=== PATIENT | female | born 1970 | race Caucasian/White ===

== ENCOUNTER 2022-05-24 10:14 | Outpatient (CLI) | payer MEDICARE, MEDICAID, SELFPAY | END 2022-05-24 10:15 | disposition home or self-care (01) | PROVIDERS: PCP Surgery; Visit Provider Family Medicine | DX: M54.16 Radiculopathy, lumbar region (principal) | CPT/HCPCS: 64483; J1100; Q9966 ==

== ENCOUNTER 2022-06-21 12:30 | Outpatient (CLI) | payer MEDICARE, MEDICAID, SELFPAY | END 2022-06-21 12:31 | disposition home or self-care (01) | LOC: INJ CL 12:30 | PROVIDERS: PCP Surgery; Visit Provider Family Medicine | DX: M54.16 Radiculopathy, lumbar region (principal) | CPT/HCPCS: 64483; J1100; Q9966 ==

== ENCOUNTER 2022-07-03 12:32 | Outpatient (CLI) | payer MEDICARE, MEDICAID, SELFPAY | END 2022-07-03 12:33 | disposition home or self-care (01) | LOC: LKVREF 07-04 15:03 | PROVIDERS: PCP Surgery; Visit Provider Family Medicine | DX: R30.0 Dysuria (principal) | CPT/HCPCS: 87086 ==

== ENCOUNTER 2022-07-12 08:15 | Outpatient (CLI) | payer MEDICARE, MEDICAID, SELFPAY | END 2022-07-12 08:16 | disposition home or self-care (01) | LOC: INJ CL 08:15 | PROVIDERS: PCP Surgery; Visit Provider Family Medicine | DX: M54.16 Radiculopathy, lumbar region (principal) | CPT/HCPCS: 64483; J0702; Q9966 ==

== ENCOUNTER 2022-10-19 12:32 | Outpatient (CLI) | payer MEDICARE, MEDICAID, SELFPAY ==
--- NOTE | 2022-10-19 13:00 | CRLHL7_ITS ---
For Patients: As a result of the Century Cures Act, medical imaging exams and procedure reports are released immediately into your electronic medical record. You may view this report before your referring provider. If you have questions, please contact your health care provider. INDICATION: Low back pain. COMPARISON: 03/04/2022. TECHNIQUE: Noncontrast CT lumbar spine. FINDINGS: Stable grade 1 anterolisthesis of L4 on L5 measures approximate 5 mm. Otherwise, normal alignment. No fractures. No vertebral body loss of height. Stable postop changes of diskectomy interbody fusion L2-3, L3-4 and L4-5. Posterior cristian transpedicular screw fixation L2-L5. Subtle lucency about the tip of the right L5 transpedicular screw may indicate hardware loosening. Remaining hardware appears well seated. T11-12 T12-L1: No spinal canal or neural foraminal narrowing. L1-2: No narrowing of the spinal canal. No neural foraminal narrowing. L2-3: Postoperative changes. No narrowing of spinal canal. No neural foraminal narrowing. L3-4: Postop changes. No narrowing of spinal canal. No neural foraminal narrowing. L4-5: Grade 1 anterolisthesis. Unroofed posterior disc bulge. Mild narrowing of spinal canal. Residual endplate osteophytic ridging or cement/bone matrix protein extends into the right neural foramen resulting in moderate narrowing. Mild narrowing of the left neural foramen. L5-S1: No narrowing of spinal canal. No impingement of the traversing S1 nerve roots. Moderate right and mild left neural foraminal narrowing. Degenerative changes of the SI joints. IMPRESSION: 1. Stable grade 1 anterolisthesis of L4 on L5. Otherwise normal alignment. No fractures 2. Stable postop changes L2-3, L3-4 and L4-5. Posterior fusion hardware L2-L5. Subtle lucency about the tip of the right L5 transpedicular screw may indicate hardware loosening. 3. At L4-5, grade 1 anterolisthesis. Mild narrowing of the spinal canal. There is residual endplate osteophytic ridging or cement/bone matrix protein within the right neural foramina resulting in moderate narrowing. Mild narrowing of the left neural foramina. 4. At L5-S1, moderate right and mild left neural foraminal narrowing. Please note that all CT scans at this facility use dose modulation, iterative reconstruction, and/or weight-based dosing when appropriate to reduce radiation dose to as low as reasonably achievable. Dictated by Nicolas Retana MD @ 10/20/2022 9:05:49 AM (Electronically Signed)
== END 2022-10-19 12:33 | disposition home or self-care (01) ==
LOC: CT 12:34
PROVIDERS: PCP Surgery; Visit Provider Physical Medicine & Rehabilitation
DX: M54.50 Low back pain, unspecified (principal); M51.26 Other intervertebral disc displacement, lumbar region
CPT/HCPCS: 72131

== ENCOUNTER 2024-01-24 09:42 | Emergency (ER) | payer MEDICARE, MEDICAID, SELFPAY ==
[2024-01-24 09:44] VITALS: BP 116/55; PULSE 100; RESP 20; TEMP 36.6; O2SAT 97; BMI 38.3
--- NOTE | 2024-01-24 11:30 | ED_ITS ---
HPI - Back Pain/Injury General Chief Complaint: Back Injury/Pain Stated Complaint: lower back pain Time Seen by Provider: 01/24/24 10:14 History of Present Illness HPI Narrative: This 53-year-old female comes in reporting low back pain that began yesterday. She has a history of several surgeries to her back and now has fusion of her back from L2 down into her pelvis. She does not report any recent injury event or strenuous activity. She does not have any pain radiating down either leg. She does not describe any bowel or urine dysfunction and is able to ambulate normally. Related Data Home Medications Medication Instructions Recorded Confirmed ascorbic acid (vitamin C) 100 mg 100 mg PO QDAY 07/03/22 01/24/24 tablet betamethasone dipropionate 0.05 % 1 applic topical 07/03/22 07/03/22 topical cream cholecalciferol (vitamin D3) 10 10 mcg PO QDAY 07/03/22 01/24/24 mcg (400 unit) capsule duloxetine 20 mg capsule,delayed 40 mg PO DAILY 07/03/22 01/24/24 release insulin aspart U-100 100 unit/mL 0.1 unit continuous subcutaneous 07/03/22 07/03/22 subcutaneous solution (Novolog infusion U-100 Insulin aspart) lacosamide 100 mg tablet (Vimpat) 100 mg PO BID 07/03/22 01/24/24 lamotrigine 200 mg tablet,extended 200 mg PO 07/03/22 07/03/22 release 24 hr lamotrigine 250 mg tablet,extended 250 mg PO 07/03/22 07/03/22 release 24 hr lisinopril 20 mg tablet 20 mg PO 07/03/22 07/03/22 meclizine 12.5 mg tablet 12.5 mg PO 07/03/22 07/03/22 pregabalin 150 mg capsule (Lyrica) 150 mg PO BID 07/03/22 01/24/24 zolpidem 5 mg tablet 5 mg PO PRN 07/03/22 07/03/22 atorvastatin 10 mg tablet 10 mg PO DAILY 02/28/23 01/24/24 Previous Rx's Medication Instructions Recorded cyclobenzaprine 10 mg tablet 10 mg PO TID #15 tabs 01/24/24 hydrocodone 5 mg-acetaminophen 325 1 tab PO Q4-6H PRN pain #20 tabs 01/24/24 mg tablet ketorolac 10 mg tablet 10 mg PO Q8H 5 days #15 tabs 01/24/24 methylprednisolone 4 mg tablets in See Rx Instructions PO .COMPLEX 01/24/24 a dose pack (Medrol (Seth)) #21 ea Allergies Allergy/AdvReac Type Severity Reaction Status Date / Time wheat Allergy Unknown Verified 01/24/24 09:53 ibuprofen Allergy Verified 02/28/23 15:41 penicillin V Allergy Verified 02/28/23 15:41 Review of Systems Status of ROS: Reports: 10 or more systems reviewed and unremarkable except as noted in History and below Narrative: Constitutional: No fevers, no weight gain or loss. Eyes: No discharge. No vision changes. HENT: No congestion, no sore throat, no ear pain. Cardiovascular: No chest pain, no palpitations. Respiratory: No shortness of breath, no wheezes, no cough. Gastrointestinal: No abdominal pain, no vomiting, no diarrhea. Genitourinary: No dysuria, no hematuria. Musculoskeletal: Low back pain as described above. Skin: No rashes, no pruritis. Neurological: No dizziness, weakness, sensory change, speech change. Endo/Heme/Allergies: No bruising or bleeding. No polydipsia. Pysch: no suicidality, no anxiety, no insomnia. All other systems reviewed and are negative. [facility] Medical History (Updated 01/24/24 @ 11:35 by Black Farooq MD) Dysuria ?R30.0 - Dysuria (ICD-10) Social History Smoking Status: Never smoker Do you use any of these nicotine containing products: None Second hand tobacco smoke exposure: No How often do you have a drink containing alcohol: never AUDIT-C Alcohol total score: 0 Non-prescribed substance use: denies use Exam Narrative: Exam Narrative: Constitutional: Well-developed, well-nourished, no acute distress. HEENT: Normocephalic, atraumatic. Neck: Normal range of motion. Nontender. Supple. Heart: Regular. No murmurs. Normal rate. Intact distal pulses. Lungs: Clear to auscultation. No chest discomfort. No wheezes, rhonchi, or rales. Abdomen: Normal bowel sounds. Nontender. No rebound tenderness. Genitalia: Deferred. Back: No midline tenderness. Diffuse pain in the low back. No pain radiating down either leg. Extremities: Normal range of motion. No injury. Skin: Intact. No rash. Warm. No erythema or pallor. Neurologic: No altered sensation. No weakness. Alert and oriented. Psychiatric: No suicidality. No anxiety or depression. No insomnia. Nursing notes and vitals signs are reviewed. Const: Vital Signs, click to edit/add: Vital Signs - 24 hr 01/24/24 09:44 Temperature 97.9 F Pulse Rate [Pulse Oximeter] 100 Respiratory Rate 20 Blood Pressure [Le ft Upper Arm] 116/55 L Pulse Oximetry 97 Oxygen Delivery Me thod Room Air Course Vital Signs Vital signs: Initial Vital Signs Temperature 97.9 F 01/24/24 09:44 Temperature Source Temporal Artery Scan 01/24/24 09:44 Pulse Rate 100 01/24/24 09:44 Respiratory Rate 20 01/24/24 09:44 Blood Pressure 116/55 L 01/24/24 09:44 Blood Pressure Mean 75 01/24/24 09:44 Blood Pressure Position Sitting 01/24/24 09:44 Pulse Oximetry 97 01/24/24 09:44 Oxygen Delivery Method Room Air 01/24/24 09:44 Vital Signs Temperature 97.9 F 01/24/24 09:44 Pulse Rate 100 01/24/24 09:44 Respiratory Rate 20 01/24/24 09:44 Blood Pressure 116/55 L 01/24/24 09:44 Pulse Oximetry 97 01/24/24 09:44 Oxygen Delivery Method Room Air 01/24/24 09:44 Temperature 97.9 F 01/24/24 09:44 Pulse Rate 100 01/24/24 09:44 Respiratory Rate 20 01/24/24 09:44 Blood Pressure 116/55 L 01/24/24 09:44 Pulse Oximetry 97 01/24/24 09:44 Oxygen Delivery Method Room Air 01/24/24 09:44 MDM - Back Pain/Injury MDM Narrative Medical decision making narrative: This patient comes in with report of back pain and history of several surgeries. She came with expectations that she would get an MRI immediately. I stated that we typically do not do an MRI as it is not justified unless meeting certain requirements that insurance will then authorize out of the ER. I spent more than 20 minutes explaining these factors and did state that an MRI can be done today but would not likely change our treatment plan or be reimbursed by insurance. The patient is now understanding these matters and is okay with not having that study done. X-ray, CT scan, and MRI would each be limited also with artifact from all the hardware in her back. The patient did receive an intramuscular injection of morphine and I did provide prescriptions for Toradol, [place], Flexeril, and Medrol Dosepak. I advised her to follow-up with her spine clinic for ongoing management. Discharge Plan Discharge Clinical Impression: Low back pain Patient Disposition: Home w/ Parent or Adult Condition: Stable Additional Instructions: Take medication as needed and indicated. Activity as tolerated. Follow up with spine clinic or arrange appointment with our spine clinic. Call [phone] for appointment. Return if worsening. Prescriptions: New cyclobenzaprine 10 mg tablet 10 mg PO TID Qty: 15 0RF hydrocodone-acetaminophen 5-325 mg tablet 1 tab PO Q4-6H PRN (Reason: pain) Qty: 20 0RF ketorolac 10 mg tablet 10 mg PO Q8H 5 Days Qty: 15 0RF methylprednisolone [Medrol (Seth)] 4 mg tablets,dose pack See Rx Instructions .ROUTE .COMPLEX Qty: 21 0RF Rx Instructions: orally per package directions No Action lacosamide [Vimpat] 100 mg tablet 100 mg PO BID pregabalin [Lyrica] 150 mg capsule 150 mg PO BID lamotrigine 250 mg tablet extended release 24hr 250 mg PO lamotrigine 200 mg tablet extended release 24hr 200 mg PO lisinopril 20 mg tablet 20 mg PO duloxetine 20 mg capsule,delayed release(DR/EC) 40 mg PO DAILY ascorbic acid (vitamin C) 100 mg tablet 100 mg PO QDAY cholecalciferol (vitamin D3) 10 mcg (400 unit) capsule 10 mcg PO QDAY betamethasone dipropionate 0.05 % cream 1 applic topical meclizine 12.5 mg tablet 12.5 mg PO insulin aspart U-100 [Novolog U-100 Insulin aspart] 100 unit/mL solution 0.1 unit continuous subcutaneous infusion zolpidem 5 mg tablet 5 mg PO PRN atorvastatin 10 mg tablet 10 mg PO DAILY Follow Up/Referrals: David Parisi MD [Primary Care Provider] - Stand Alone Forms: [employer] Info Instructions
[2024-01-24] MEDS: MORPHINE 10 MG/ML inj IM (11:36)
== END 2024-01-24 11:42 | disposition home or self-care (01) ==
PROVIDERS: Emergency Provider Emergency Medicine Emergency Medical Services; PCP Surgery
DX: M54.50 Low back pain, unspecified (principal)
CPT/HCPCS: 96372; 99284; J2270

== ENCOUNTER 2024-03-05 13:00 | Outpatient (RCR) | payer MEDICARE, MEDICAID, SELFPAY | END 2024-07-03 23:59 | disposition home or self-care (01) | PROVIDERS: PCP Surgery; Visit Provider Family Medicine | DX: M17.12 Unilateral primary osteoarthritis, left knee (principal); R26.2 Difficulty in walking, not elsewhere classified; M25.562 Pain in left knee; Z51.89 Encounter for other specified aftercare | CPT/HCPCS: 97110; 97162; 97535 ==

== ENCOUNTER 2024-06-18 07:26 | Outpatient (CLI) | payer MEDICARE, MEDICAID, SELFPAY | END 2024-06-18 07:27 | disposition home or self-care (01) | LOC: INJ CL 07:27 | PROVIDERS: PCP Surgery; Visit Provider Family Medicine | DX: M17.12 Unilateral primary osteoarthritis, left knee (principal); M25.562 Pain in left knee | CPT/HCPCS: 64454 ==

== ENCOUNTER 2024-07-12 14:13 | Outpatient (RCR) | payer MEDICARE, MEDICAID, SELFPAY ==
--- NOTE | 2024-07-12 15:31 | PT.OPEX ---
PT [place] Outpatient Eval PT [facility] Outpatient Eval Start: 07/11/24 15:42 Freq: Status: Active Protocol: Document 07/12/24 14:35 HLA (Rec: 07/12/24 15:23 HLA [id number]) E-signed By Maliha Toro, PT, DPT Physical Therapy Outpatient Evaluation Insurance Information Insurance Name Medicaid Medical Diagnosis L TKA-hx DM, depression, HTN, epilepsy, allergies, mental health, on disability Treating Diagnosis impaired ROM, impaired strength, impaired ambulation Referring MD Renner Subjective Preferred Name Jennifer Selina Jose, pain is significant L knee, has hx 6 back surgeries. Pt is on disability , lives in her own home in [place], does not drive. Wants in home PT after hospital stay because she does not drive. States her knee has limited her walking immensely, currently 100 feet before exquisite pain. Pain Comments Pain L knee Date of Last Physician Visit 06/28/24 Date of Surgery (If applicable) 08/14/24 Current Work Status Data Management Specialist Disability Precautions Treatment Precautions/Contraindications DM, epilepsy Weight Bearing Status Full Weight Bearing Therapy Limitations/Systems Review Not Limited Objective Range of Motion ROM shldr 0-130 degrees elevation, L knee 0-110 degrees flex otherwise WNL Strength 4+/5 shldrs otherwise WNL UEs/ LEs Swelling no edema present Palpation L medial joint line tenderness Balance & Gait Gait no device, amb 100 feet then c/o pain, limited. Gt abducted, mild arm spread with gt. Owns a ww/cane, currently not using them. Balance good static, dynamic, main limitation is pain with amb Pt is currently doing step to pattern on stairs. Slow, labored. Posture rounded thoracic spine Functional Test Performed & Score LEFS 22/80 Assessment Assessment/Impression 53 year old female with hx of 6 back surgeries, DM, HTN, epilepsy, depression, mental health, disability, resides in [facility] in a 1 level home , 2 step entry. Her L knee pain has worsened and she is undergoing a L TKA with Dr. Renner on 08/14/24. Pt presents with 0-130 degrees shldr elevation, impaired shldr strength, L knee 0-100 degrees flexion otherwise WNL for strength and balance. She transfers slowly, independently and amb 100 feet level surfaces no device, limited due to L knee pain. Stairs are slow, step to pattern. LEFS score is 22/80. Pt was instructed in TKA ex program (quad sets, ham sets, ankle pumps, heel slides, SAQ, SLR, seated knee flex/ext and hamstring stretches) per protocol to be practiced pre- operatively and for improved learning post-operatively. Pt was instructed in hospital post-op progression in PT, safety, fall prevention. Pt was instructed in positioning in chair, use of ice/polar care, bed, transfer safety, gt safety with walker, stairs, and car transfers. Her goal is to return home, have in home PT services as she does not drive. Sister will stay with her short-term. VM left with [employer] with pt's dc plan. Primary Functional Limitations amb no device, does not drive. Owns ww and cane. Plan of Care [facility] Physical Therapy Goals 1. Within this session: Pt will verbalize understanding of pre-op/post-op safety, mobility and exercises with home program issued and pt returning for ongoing therapy after TKA replacement. Coordination/Communication With Referral Source Treatment Plan/Direct Interventions Gait Training,Self-Care/Home Management,Therapeutic Activities,Therapeutic Exercises Patient Will Be Discharged From Therapy Completion of LTG(s) Discharge Plan Comments dc today with pt having surgery, then home care PT. Evaluation Billing Untimed Code Treatment Minutes 14 PT Eval No Charge No Complexity Moderate Certification Information Initial Certification Date 07/12/24 Ending Certification Date 10/09/24 Provider Signature Required Yes Provider Signature Shows Agreement With POC & Medical Necessity Physician NPI Number Write NPI# Here Physician Comment/Change : Physician Signature & Date Requested Please Sign/Date Here
== END 2024-07-12 15:51 | disposition home or self-care (01) ==
PROVIDERS: PCP Surgery; Visit Provider Orthopaedic Surgery Sports Medicine
DX: M17.12 Unilateral primary osteoarthritis, left knee (principal); Z96.652 Presence of left artificial knee joint; R53.1 Weakness; R26.9 Unspecified abnormalities of gait and mobility; Z51.89 Encounter for other specified aftercare
CPT/HCPCS: 97110; 97162

== ENCOUNTER 2024-08-15 14:41 | Inpatient (IN) | payer MEDICARE, MEDICAID, SELFPAY ==
--- NOTE | 2024-07-02 16:05 | PC.SOCIAL ---
Social work call: fabric and textile factory worker returned pt's message that was left on the social work department voicemail inquiring about options for short-term rehab after her knee surgery on August 14, 2024. fabric and textile factory worker explained the process with surgery and needing to be seen by PT/OT in the hospital after her surgery to see if she would qualify for short-term rehab. Pt understood. Pt says she does plan to spend the night in the hospital after her surgery. Pt will also look into her insurance to see what they cover. Social work to follow-up as needed.
--- NOTE | 2024-07-09 14:34 | PC.SOCIAL ---
Social work call: photographic process worker informed the pt today via phone that in order to have coverage for a short-term rehab stay with her Medicare insurance she would need to have a three night inpatient hospital stay. photographic process worker explained that when pt's have a joint replacement surgery they typically only stay in the hospital for one night unless there is a major issue. Pt then asked if she would qualify for home care. This clinical social work therapist explained that that would be up to the physician to decide if she would qualify. photographic process worker explained that if she does qualify for home care after her surgery the social work department would assist her with locating an agency and getting that set-up. Pt was thankful for the information. Social work to follow-up as needed.
[2024-08-14] VITALS (25 sets, daily range): BP systolic 132–174; BP diastolic 68–103; PULSE 78–97; RESP 14–18; TEMP 35.9–36.9; O2SAT 91–100; BMI 38.8
--- NOTE | 2024-08-14 12:31 | W.PM.H&PU ---
History & Physical Update History & Physical Update H&P Reviewed and patient assessed: No changes noted
--- NOTE | 2024-08-14 12:34 | CRLHL7_ITS ---
For Patients: As a result of the Cures Act, medical imaging exams and procedure reports are released immediately into your electronic medical record. You may view this report before your referring provider. If you have questions, please contact your health care provider. INDICATION: Post operative left knee arthroplasty TECHNIQUE: Knee radiograph 2 views left COMPARISON: None FINDINGS: Bone: No acute fractures or aggressive bone lesions are identified. Joint: The patient is status post a total knee arthroplasty with patellar resurfacing. No significant knee effusion is seen. Soft tissue: Anterior subcutaneous gas and joint gas are present from recent surgery. No radiopaque foreign bodies are seen. IMPRESSION: 1. There is an unremarkable postoperative appearance of the knee arthroplasty. Dictated by: Oren Mann MD @ 08/15/2024 14:08:15 (Electronically Signed)
[2024-08-14] MEDS: OXYCODONE (CR) 10 MG TAB.ER.12H PO (12:51)
[2024-08-14] MEDS: ACETAMINOPHEN 500 MG TABLET 1000 MG PO ×2 (12:51→19:48)
[2024-08-14] MEDS: MIDAZOLAM HCL 1 MG/ML inj IVP (13:20)
[2024-08-14] MEDS: 0.9 % SODIUM CHLORIDE 500 ML 500 ML 100 ML IV (13:20)
[2024-08-14] MEDS: fentaNYL 100 MCG/2 ML inj IVP (13:20)
[2024-08-14] MEDS: SODIUM CHLORIDE 0.9 % (FLUSH) 10 ML SYRINGE IVF (13:20)
--- NOTE | 2024-08-14 13:25 | SUR.PREOP ---
TIME?OUT:?1325 PT/RN/MDA?VERIFICATION?OF?SURGICAL?SITE,?PROCEDURE,?AND?CONSENT OBTAINED?PRIOR?TO?INVASIVE?PROCEDURE.
--- NOTE | 2024-08-14 13:58 | P.NB_ITS ---
Nerve Block Nerve Block Time Seen by Provider: : Date Seen: 08/14/24 Type of block requested by surgeon for post-operative analgesia: geniculars Side: left Time out performed: Yes Verification of patient name: Yes Verification of date of : Yes Site marking: site marked Name of person performing procedure: Guillermo Continuous monitoring Was continuous monitoring of O2 sat, B/P, desk monitor, recorded every 15 minutes?: Yes Procedure Checklist: sterile prep, needles and gloves Ultrasound guided. Images saved: Yes Medications given in 5ml increments after negative aspiration: Marcaine %: 0.25 mL: 9 Needle gauge: 25 Patient tolerated procedure well: Yes Block Charges Block Charge (with Pro Fee): Genicular Nerve Block
--- NOTE | 2024-08-14 13:58 | P.NB_ITS ---
Nerve Block Nerve Block Time Seen by Provider: : Date Seen: 08/14/24 Type of block requested by surgeon for post-operative analgesia: adductor canal Side: left Time out performed: Yes Verification of patient name: Yes Verification of date of : Yes Site marking: site marked Name of person performing procedure: Guillermo Continuous monitoring Was continuous monitoring of O2 sat, B/P, casting molder, recorded every 15 minutes?: Yes Procedure Checklist: sterile prep, needles and gloves Ultrasound guided. Images saved: Yes Medications given in 5ml increments after negative aspiration: Marcaine %: 0.25 mL: 15 Needle gauge: 20 Precedex (mcg): 25 Patient tolerated procedure well: Yes Block Charges Block Charge (with Pro Fee): Femoral Nerve Use of Ultrasound Machine for Block: Yes- US Guidance/pain block
--- NOTE | 2024-08-14 13:59 | W.ANESCHARGE ---
Anesthesia Charges Start Date/Time Anesthesia Start Date: 08/14/24 Anesthesia Start Time: 13:35 Stop Date/Time Anesthesia Stop Date: 08/14/24 Anesthesia Stop Time: 16:15
--- NOTE | 2024-08-14 14:41 | PC.SOCIAL ---
Addendum entered and electronically signed by BRIE Benavidez 08/14/24 16:15: Discharge planning: Pt was not back from surgery before this worker left for the day, so this worker will discuss with the pt in the morning. Social work to follow-up as needed. Addendum entered and electronically signed by BRIE Benavidez 08/14/24 15:48: Discharge planning: When this outreach and education social worker was talking to [facility]. they had checked pt's Medicare insurance for coverage of home health services and saw no issues with coverage. Social work to follow-up as needed. Original Note: Discharge planning: Pt is having knee replacement surgery today at 1:15pm. collar worker talked to the pt last month about recovery planning after her knee surgery. Pt is reporting that she would like home care if she qualifies. collar worker contacted [facility]. and they shared that they would have availability to accept the pt for physical therapy and to fax the orders, face sheet and history and physical when available. collar worker will discuss this with the pt when she comes to the med/surg floor for recovery before sending the required documentation to [facility]. [facility]s phone number is #[phone] and their fax number is #[phone]. Social work to follow-up as needed.
--- NOTE | 2024-08-14 15:27 | P.ORPRC_ITS ---
Procedure Note Date of procedure: 08/14/24 Procedure: PREOPERATIVE DIAGNOSIS: 1. Left knee osteoarthritis, primary, severe POSTOPERATIVE DIAGNOSIS: 1. Left knee osteoarthritis, primary, severe PROCEDURE: 1. Left total knee arthroplasty - subvastus; modifier 22 with 25% added time and difficulty for this case due to the patient's short stature and increased body mass index (BMI 38.8) which increased the need for more retractors, more assistants, and a stemmed tibial component which required increased preparation time. SURGEON: Skyler Renner MD. STAFF REGISTERED NURSE: David Ross PA-C - Of note, a skilled assistant associate professor was critical for this case to aid in patient positioning, tissue retraction, limb manipulation/positioning, and closure. ANESTHESIA: Spinal anesthetic EBL: 50ml IMPLANTS: DePuy J&J all cemented TKA - Attune PS femur size 4 narrow, size 3 stemmed tibia, 5 mm poly spacer, 35 mm patella TOURNIQUET: 105 minutes at 300 torr COMPLICATIONS: None evident INDICATIONS: The patient is a pleasant 53-year-old female who has experienced severe left knee pain and difficulty bearing weight. Workup included x-rays which revealed severe osteoarthrosis in the knee. Given the deformity, the dysfunction, and the pain, as well as the failure of nonoperative management, recommendation was made for surgery. FINDINGS: Full-thickness chondral loss diffusely throughout the medial and to a lesser degree patellofemoral and lateral compartments. Degenerative meniscus pathology in the medial compartment. Large effusion upon entering the joint. Tricompartmental osteophytosis noted. DESCRIPTION OF PROCEDURE: Following a thorough discussion of risks, benefits, and alternatives consent was obtained and the left knee was marked. The patient was brought to the operating room and placed supine on the operating table. Induction of anesthesia was undertaken. 2 g IV Ancef and 1 g tranexamic acid was administered within 1 hr of incision preoperatively. Proper time-out was performed identifying proper patient, site, procedure. The operative extremity was prepped and draped in the appropriate sterile fashion using ChloraPrep after the patient was positioned supine with all bony prominences well padded. A longitudinal, anterior, midline skin incision was made starting approximately 3cm proximal to the superior pole of the patella and advanced distal to the tibial tubercle. A subvastus approach was utilized. A medial subperiosteal sleeve was created with knife, alvarenga elevator and curved osteotome. The retropatellar fatpad was resected and the synovium in the suprapatellar pouch excised to visualize the anterior femoral cortex. Femoral preparation was performed via an intramedullary guide. Step drill allowed access into the femoral canal. The distal cutting guide was placed with 5? of valgus and 10 mm cut on the distal femur. Femur was sized using a posterior referencing guide in 3? of external rotation. This found have a best fit with the sizing noted above. The 4 in 1 cutting block was then placed, and the distal femur shaped accordingly. The box cut was then created and the trial implant inserted to confirm appropriate fit. We turned our attention to the proximal tibia. Extramedullary guide was utilized for cutting with the goal of being 90 degree cut from the mechanical axis of the tibia in the varus/valgus plane utilizing tibial crest as the primary alignment. Initially a 3 mm resection was performed from the medial tibial plateau. Ultimately, balancing was achieved in both flexion and extension in both varus and valgus. The knee was able to achieve full extension as well comfortably. The patella was initially measured and found have a thickness of 24 mm. It was resected back to approximately 14 mm. It was sized to be a best fit with as noted above. This was drilled, trial placed. All trials were placed and found to have an excellent stability and balance. At this stage, trial implants were removed, the knee was thoroughly irrigated with normal saline, and the cement was mixed. After irrigation, the knee was thoroughly dried, and cement placed, with the real tibial and femoral implants placed along with the patella. Trial poly spacer was placed and confirmed to have excellent range of motion and full extension, and the real poly spacer opened and inserted. All extra cement was removed, and a 3 min Betadine soak performed. Finally, a final irrigation round with normal saline was performed. Closure performed with 0 PDS and #0 Stratafix for the quad tendon/retinaculum. 2-0 Vicryl/Stratafix for the subcutaneous and 4-0 Monocryl for subcuticular closure. Dressings were applied and the patient was awoken from anesthesia after the tourniquet deflated and transferred the PACU in stable condition. A skilled assistant associate professor was critical for this case to aid in patient positioning, tissue retraction, bone exposure, limb manipulation/positioning, patient safety, and closure. PLAN: 1. Weight bear as tolerated operative extremity. 2. 23 hr perioperative antibiotics. 3. Ice. 4. PT/OT consults for ambulation assistance/mobility education. 5. Social work consult for discharge planning. 6. DVT prophylaxis with at SCDs and aspirin twice daily.
--- NOTE | 2024-08-14 16:23 | W.ANESCHARGE ---
Anesthesia Charges Start Date/Time Anesthesia Start Date: 08/14/24 Anesthesia Start Time: 13:35 Stop Date/Time Anesthesia Stop Date: 08/14/24 Anesthesia Stop Time: 16:15
[2024-08-14] MEDS: HYDROmorphone 0.5 mg/0.5 ml inj IVP ×3 (16:36→19:49)
[2024-08-14] MEDS: LACTATED RINGERS 1000 ML 1,000 ML 100 ML IV (17:01)
--- NOTE | 2024-08-14 17:17 | SUR.PHASEI ---
Patient arrived with pain of 9, TRACK PRODUCTION ENGINEER gave 1 of fentanyl. Patient's oxygen saturation dropped. O2 mask applied at 10 l/min. Patient breathing better in a few minutes with jaw lift. Oxygenation came up to 100 %.
--- NOTE | 2024-08-14 17:21 | SUR.PHASEI ---
1700 Patient received 2 doses of dilaudi. Pain better, but states it is still a level 8. See FLACC score. Patient meets anesthesia discharge criteria from PACU
[2024-08-14] MEDS: OXYCODONE 5 MG TABLET PO ×2 (19:07→23:39)
--- NOTE | 2024-08-14 19:12 | PM.IMCN1 ---
Date of Consult Patient: [facility] Patient Consult date: 08/14/24 Requesting Physician: Orthopedics Primary Care Provider: David Parisi MD Consult Narrative Reason for consult: Medical management Narrative: Jennifer May is a 53 year old female past medical history significant for hypertension, dyslipidemia, seizure disorder, type 1 diabetes mellitus, osteoarthritis of left knee is POD#0 s/p left total knee arthroplasty, Dr. Su. There have been no perioperative complications or nursing concerns reported. Estimated total blood loss documented as 50 ml. Updated and reviewed the active medical problems, past medical history, past surgical history, social history, allergies and medications in our electronic EMR. Postoperatively, patient reports left knee pain increasing having just received pain medication. Denies headache or dizziness. Denies chest pain or shortness of breath. Denies nausea, tolerating orals without vomiting. Review of Systems Narrative: REVIEW OF SYSTEMS: Complete review of systems performed and negative unless otherwise stated in HPI or below. PFSH [facility] Medical History Dyslipidemia ?E78.5 - Hyperlipidemia, unspecified (ICD-10) Hypothyroidism ?E03.9 - Hypothyroidism, unspecified (ICD-10) Insulin pump in place ?Z96.41 - Presence of insulin pump (external) (internal) (ICD-10) Depression ?F32.A - Depression, unspecified (ICD-10) Hypertension ?I10 - Essential (primary) hypertension (ICD-10) Seizure disorder ?G40.909 - Epilepsy, unspecified, not intractable, without status epilepticus (ICD-10) Right-sided low back pain with right-sided sciatica ?M54.41 - Lumbago with sciatica, right side (ICD-10) Spinal stenosis of lumbar region without neurogenic claudication ?M48.061 - Spinal stenosis, lumbar region without neurogenic claudication (ICD-10) Lumbar disc herniation ?M51.26 - Other intervertebral disc displacement, lumbar region (ICD-10) Celiac disease ?K90.0 - Celiac disease (ICD-10) Dysuria ?R30.0 - Dysuria (ICD-10) Surgical History History of lumbar fusion (03/20/24) ?Z98.1 - Arthrodesis status (ICD-10) History of lumbar laminectomy for spinal cord decompression (02/22/22) ?Z98.890 - Other specified postprocedural states (ICD-10) History of laminectomy (01/14/22) ?Z98.890 - Other specified postprocedural states (ICD-10) History of endometrial ablation (2005) ?Z98.890 - Other specified postprocedural states (ICD-10) History of esophagogastroduodenoscopy (EGD) (08/2014) ?Z98.890 - Other specified postprocedural states (ICD-10) H/O bilateral cataract extraction (1987) ?Z98.41 - Cataract extraction status, right eye (ICD-10) ?Z98.42 - Cataract extraction status, left eye (ICD-10) Status post lumbar spine surgery for decompression of spinal cord (06/18/19) ?Z98.890 - Other specified postprocedural states (ICD-10) History of lumbar fusion (04/26/16) ?Z98.1 - Arthrodesis status (ICD-10) History of hysteroscopy ?Z98.890 - Other specified postprocedural states (ICD-10) History of carpal tunnel surgery of left wrist (09/28/07) ?Z98.890 - Other specified postprocedural states (ICD-10) S/P cervical spinal fusion (03/18/10) ?Z98.1 - Arthrodesis status (ICD-10) History of carpal tunnel surgery of right wrist (07/15/08) ?Z98.890 - Other specified postprocedural states (ICD-10) History of appendectomy (2001) ?Z90.49 - Acquired absence of other specified parts of digestive tract (ICD-10) Social History What is your current living situation?: I presently have a place to live Problems where you live: no known problems In the past 12 months, utilities in danger of being shut off: no In the past 12 mos, have been you worried that your food would run out before you had money to buy more?: never true In the past 12 mos, the food you bought just didn't last and you didn't have money to buy more?: never true Smoking Status: Never smoker Do you use any of these nicotine containing products: None Second hand tobacco smoke exposure: No How often do you have a drink containing alcohol: monthly or less AUDIT-C Alcohol total score: 1 Non-prescribed substance use: denies use Caffeine: Yes (coffee) How often does anyone, including family, friends and others, physically hurt you: never How often does anyone, including family, friends and others, insult or talk down to you: never How often does anyone, including family, friends and others, threaten you with harm: never How often does anyone, including family, friends and others, scream or curse at you: never Meds Home Medications and Allergies Home Medications ?Medication ?Instructions ?Recorded ?Confirmed ?Type betamethasone dipropionate 0.05 % 1 applic topical Q12H PRN 07/03/22 08/14/24 History topical cream duloxetine 20 mg capsule,delayed 40 mg PO DAILY 07/03/22 08/14/24 History release lacosamide 100 mg tablet (Vimpat) 100 mg PO BID 07/03/22 08/14/24 History lamotrigine 200 mg tablet,extended 200 mg PO HS 07/03/22 08/14/24 History release 24 hr lamotrigine 250 mg tablet,extended 250 mg PO HS 07/03/22 08/14/24 History release 24 hr meclizine 12.5 mg tablet 12.5 mg PO TID PRN 07/03/22 08/14/24 History pregabalin 150 mg capsule (Lyrica) 150 mg PO BID 07/03/22 08/14/24 History zolpidem 5 mg tablet 5 mg PO HS PRN 07/03/22 08/14/24 History atorvastatin 10 mg tablet 10 mg PO QPM 02/28/23 08/14/24 History glucagon 1 mg/0.2 mL subcutaneous 1 mg subcut DAILY PRN 06/28/24 08/14/24 History syringe (Gvoke PFS 1-Pack) ropinirole 0.5 mg tablet 1 mg PO HS 06/28/24 08/14/24 History albuterol sulfate 2.5 mg/3 mL 2.5 mg inhalation Q4H PRN 08/14/24 08/14/24 History (0.083 %) solution for nebulization amlodipine 5 mg tablet 5 mg PO DAILY 08/14/24 08/14/24 History ascorbic acid (vitamin C) 500 mg 500 mg PO DAILY 08/14/24 08/14/24 History tablet aspirin 81 mg tablet,delayed 81 mg PO DAILY 08/14/24 08/14/24 History release (Adult Low Dose Aspirin) cholecalciferol (vitamin D3) 25 50 mcg PO DAILY 08/14/24 08/14/24 History mcg (1,000 unit) tablet ferrous sulfate 325 mg (65 mg 325 mg PO DAILY 08/14/24 08/14/24 History iron) tablet (Feosol) insulin lispro 100 unit/mL 50 - 60 unit subcut DAILY 08/14/24 08/14/24 History subcutaneous solution (Admelog U-100 Insulin lispro) Allergies Allergy/AdvReac Type Severity Reaction Status Date / Time wheat Allergy Unknown Dizziness Verified 06/28/24 09:17 ibuprofen Allergy retinal Verified 06/28/24 09:17 hemorrhage penicillin V Allergy Rash Verified 06/28/24 09:17 Exam Narrative: Exam Narrative: PHYSICAL EXAM General: Pleasant, conversant, NAD HEENT: Normocephalic, atraumatic, sclera white, EOMI, oral mucosa moist Cardiovascular: RRR, S1S2. No pitting edema Pulmonary: CTA bilaterally without rhonchi, rales, expiratory wheezes. No dyspnea Abdominal: Soft, nondistended, NTTP Neurological: Alert, answering questions appropriately, cranial nerves intact, no focal findings Extremities: No gross joint deformity or swelling. Postoperative dressing in place, dry. Neurovascularly intact Skin: Warm, dry. Const: Vital Signs, click to edit/add: Vital Signs - 24 hr 08/14/24 13:15 08/14/24 13:27 08/14/24 13:30 Temperature 98.4 F Pulse Rate 80 80 79 Respiratory Rate 16 16 16 Blood Pressure 171/78 H 148/90 H 132/72 Pulse Oximetry 96 100 100 Oxygen Delivery Me thod Room Air Nasal Cannula Room Air Oxygen Flow Rate 3 08/14/24 16:14 08/14/24 16:20 08/14/24 16:25 Temperature 97.4 F L Pulse Rate 84 86 86 Respiratory Rate 18 18 18 Blood Pressure 152/75 H 166/82 H 167/83 H Pulse Oximetry 92 100 100 Oxygen Delivery Me thod Aerosol Mask Aerosol Mask Aerosol Mask Oxygen Flow Rate 10 10 10 08/14/24 16:30 08/14/24 16:35 08/14/24 16:40 Temperature Pulse Rate 82 81 85 Respiratory Rate 16 14 14 Blood Pressure 164/88 H 155/98 H 167/88 H Pulse Oximetry 100 100 100 Oxygen Delivery Me thod Aerosol Mask Aerosol Mask Aerosol Mask Oxygen Flow Rate 10 10 10 08/14/24 16:45 08/14/24 16:50 08/14/24 16:55 Temperature 97.4 F L Pulse Rate 81 84 80 Respiratory Rate 14 14 16 Blood Pressure 156/86 H 151/103 H 161/74 H Pulse Oximetry 99 96 98 Oxygen Delivery Me thod Room Air Room Air Room Air Oxygen Flow Rate 08/14/24 17:00 08/14/24 17:13 08/14/24 17:13 Temperature Pulse Rate 82 Respiratory Rate 14 16 Blood Pressure 142/78 H Pulse Oximetry 97 95 95 Oxygen Delivery Me thod Room Air Nasal Cannula Oxygen Flow Rate 2 08/14/24 17:13 08/14/24 17:30 08/14/24 17:45 Temperature 96.7 F L 97.0 F L Pulse Rate 82 88 94 Respiratory Rate 16 16 16 Blood Pressure 155/73 H 153/68 H 149/93 H Pulse Oximetry 95 98 97 Oxygen Delivery Me thod Nasal Cannula Nasal Cannula Nasal Cannula Oxygen Flow Rate 2 2 2 08/14/24 18:00 08/14/24 18:15 08/14/24 18:45 Temperature 97.2 F L Pulse Rate 91 92 97 Respiratory Rate 16 16 16 Blood Pressure 163/78 H 150/89 H 140/81 H Pulse Oximetry 98 97 98 Oxygen Delivery Me thod Nasal Cannula Nasal Cannula Nasal Cannula Oxygen Flow Rate 2 2 2 Assessment and Plan Assessment and plan (1) Osteoarthritis of left knee: Problem comment: -POD#0 s/p L TKA, Dr. Su -perioperative management including pain management and anticoagulation per Orthopedic surgery -encourage postoperative pulmonary hygiene -PT OT consults -plan to discharge home with sister tomorrow Status: Acute (2) Seizure disorder: Problem comment: -stable, continue lamotrigine, seizure precautions Status: Acute (3) Type I diabetes mellitus: Problem comment: -postop glucose 115 -continue home insulin pump, monitoring ACHS as long as accurate with Accu-Chek Status: Acute (4) Hypertension: Problem comment: -hypertensive postoperatively, continue home medications Status: Acute Total Time Spent Total Time Spent: Total time spent caring for the patient today was 45 minutes. This includes time spent for the visit reviewing the chart, time spent during the visit, time spent after the visit and documentation and planning in coordination of care.
[2024-08-14] MEDS: CEFAZOLIN 2 GM in 0.9 % SODIUM CHLORIDE Mini-bag 100 ML IVPB (19:48)
[2024-08-14] MEDS: PREGABALIN 75 MG CAPSULE 150 MG PO (21:39)
[2024-08-14] MEDS: ROPINIROLE HCL 1 MG TABLET PO (21:40)
[2024-08-14] MEDS: ATORVASTATIN 10 MG TABLET PO (21:41)
[2024-08-14] MEDS: LACOSAMIDE 50 MG TABLET 100 MG PO (21:41)
[2024-08-14] MEDS: SENNOSIDES 1 TAB TABLET 2 TAB PO (21:42)
[2024-08-14] MEDS: ASPIRIN 81 MG TABLET EC PO (21:42)
[2024-08-14] MEDS: AMLODIPINE 5 MG TABLET PO (21:43)
[2024-08-14] MEDS: NON-FORMULARY MEDICATION (Lamotrigine 250 mg tablet extended release 24hr) 250 EACH PO (22:19)
[2024-08-14] MEDS: NON-FORMULARY MEDICATION (Lamotrigine 200 mg tablet extended release 24hr) 200 EACH PO (22:19)
[2024-08-14] MEDS: ONDANSETRON 2 MG/ML inj 4 MG IVP (22:31)
[2024-08-15] VITALS (10 sets, daily range): BP systolic 143–173; BP diastolic 60–88; PULSE 88–102; RESP 16–18; TEMP 36.5–37.1; O2SAT 9–97
[2024-08-15] MEDS: ACETAMINOPHEN 500 MG TABLET 1000 MG PO ×4 (02:11→20:24)
[2024-08-15] MEDS: HYDROmorphone 0.5 mg/0.5 ml inj IVP ×3 (02:12→07:59)
[2024-08-15] MEDS: CEFAZOLIN 2 GM in 0.9 % SODIUM CHLORIDE Mini-bag 100 ML IVPB (03:42)
--- NOTE | 2024-08-15 04:51 | PC.NURSE ---
Shift note: Pt is doing well ambulating with A1, walker and GB. Tolerated regular diet well. At 0300, pt complained of feeling nauseated. Zofran given. Pain level ranged between 4 and 10. Pain given as ordered. Pt walked in hallway. Urine out has been good. Saline lock. Dressing intact, clean and dry. Ice pack applied. Pt has not pass gas yet, no BM.
[2024-08-15] MEDS: ONDANSETRON 2 MG/ML inj 4 MG IVP (05:20)
[2024-08-15] MEDS: OXYCODONE 5 MG TABLET PO ×3 (05:21→10:31)
[2024-08-15 07:43] LABS: Basophils Absolute Auto 0.03 K/uL (0.00-0.30); Basophils Percent Auto 0.3 % (0.0-3.0); Eosinophils Absolute Auto 0.06 K/uL (0.00-0.50); Eosinophils Percent Auto 0.6 % (0.0-7.0); Hematocrit 39.2 % (33.0-51.0); Hemoglobin* 12.5 gm/dL (12.0-16.0); Immature Granulocytes Abs Auto 0.04 K/uL (0.00-0.30); Immature Granulocytes Pct Auto 0.4 %; Lymphocytes Percent Auto 9.7 % (20-44); Mean Corpuscular HGB Conc 32 gm/dL (32-36); Mean Corpuscular Hemoglobin 29 pg (26-34); Mean Corpuscular Volume 90 fL (80-100); Platelet Count* 264 K/uL (140-440); RDW Coefficient of Variation % 13.9 % (11.5-15.5); Red Blood Count 4.35 m/uL (4.00-5.20); White Blood Count* 10.09 K/uL (4.50-11.00)
[2024-08-15 07:45] LABS: Slide Review Reflex No
[2024-08-15 07:58] LABS: Sodium* 135 mmol/L (135-149)
[2024-08-15 07:59] LABS: Potassium* 4.2 mmol/L (3.6-5.1)
[2024-08-15] MEDS: DULOXETINE HCL 20 MG CAPSULE DR 40 MG PO (08:00)
[2024-08-15 08:01] LABS: Creatinine* 0.6 mg/dL (0.5-1.5); Est. Creatinine Clearance* 76.99; Estimated Glomerular Filt Rate 107 ml/min
[2024-08-15] MEDS: SENNOSIDES 1 TAB TABLET 2 TAB PO ×2 (08:01→20:28)
[2024-08-15] MEDS: ASPIRIN 81 MG TABLET EC PO ×2 (08:01→20:26)
[2024-08-15] MEDS: LACOSAMIDE 50 MG TABLET 100 MG PO ×2 (08:01→20:27)
[2024-08-15 08:02] LABS: Blood Urea Nitrogen* 14 mg/dL (7-30)
[2024-08-15] MEDS: PREGABALIN 75 MG CAPSULE 150 MG PO ×2 (08:02→20:27)
[2024-08-15] MEDS: AMLODIPINE 5 MG TABLET PO (08:04)
[2024-08-15] MEDS: CELECOXIB 200 MG CAPSULE PO ×2 (09:20→20:26)
[2024-08-15] MEDS: hydrOXYzine pamoate 25 MG CAPSULE 50 MG PO ×3 (09:20→20:26)
--- NOTE | 2024-08-15 10:15 | PC.SOCIAL ---
Addendum entered and electronically signed by MARC Parson Student Search Director 08/15/24 15:13: Social work web development intern faxed [id number] and H&P to [employer], fax number: [phone]. Social work to follow up as needed. Original Note: Discharge planning: Social work web development intern spoke with pt regarding home care services. She had no preference for service and asked for whichever one was available. Social work web development intern confirmed with [facility] that they could accept the pt and they said they could for both therapy and nursing services. Social work will fax orders to [employer] [facility]. and follow up.
[2024-08-15] MEDS: HYDROmorphone 2 MG TABLET PO ×2 (13:07→18:43)
--- NOTE | 2024-08-15 13:53 | PM.ORPN ---
Subjective Subjective Date Seen: 08/15/24 Principal diagnosis: Status postop day 1 left total knee arthroplasty Interval history: Reports not doing well. Very difficult pain management of this left knee. Not able to sleep. Does not believe that the IV hydromorphone or oral oxycodone or provide any relief for her. Delete DVT prophylaxis: 81 mg aspirin by mouth twice daily, SCDs, walking. Denies fevers, chills, aches, N/V, CP, SOB/FLORES. Reports some lightheadedness when up and moving. Per staff, patient appeared to be in better comfort after IV Dilaudid even though she says that the pain is not controlled. She states that she is not pleased that she was the last surgery on 08/14/2024 especially with her diabetes. She has had multiple back surgeries over the last few months. Ortho Exam Narrative Exam Narrative: -Patient appears uncomfortable, and in pain; no apparent acute distress -Alert and oriented times 3 -Operative knee moderately swollen; soft tissues supple; no ecchymosis; no erythematous streaking Warmth appropriate -Surgical dressing clean, dry, intact; no drainage -Bilateral calfs soft; no significant swelling, edema, tenderness, erythema, discoloration, warmth, or palpable cords -2+ DP/PT pulses, intact dermatomes and myotomes distally (5/5 strength) Const Vital Signs, click to edit/add: Vital Signs - 24 hr 08/14/24 16:14 08/14/24 16:20 08/14/24 16:25 Temperature 97.4 F L Pulse Rate 84 86 86 Pulse Rate [Right Pulse Oximeter] Respiratory Rate 18 18 18 Blood Pressure 152/75 H 166/82 H 167/83 H Blood Pressure [Right Arm] Pulse Oximetry 92 100 100 Oxygen Delivery Method Aerosol Mask Aerosol Mask Aerosol Mask Oxygen Flow Rate 10 10 10 08/14/24 16:30 08/14/24 16:35 08/14/24 16:40 Temperature Pulse Rate 82 81 85 Pulse Rate [Right Pulse Oximeter] Respiratory Rate 16 14 14 Blood Pressure 164/88 H 155/98 H 167/88 H Blood Pressure [Right Arm] Pulse Oximetry 100 100 100 Oxygen Delivery Method Aerosol Mask Aerosol Mask Aerosol Mask Oxygen Flow Rate 10 10 10 08/14/24 16:45 08/14/24 16:50 08/14/24 16:55 Temperature 97.4 F L Pulse Rate 81 84 80 Pulse Rate [Right Pulse Oximeter] Respiratory Rate 14 14 16 Blood Pressure 156/86 H 151/103 H 161/74 H Blood Pressure [Right Arm] Pulse Oximetry 99 96 98 Oxygen Delivery Method Room Air Room Air Room Air Oxygen Flow Rate 08/14/24 17:00 08/14/24 17:13 08/14/24 17:13 Temperature Pulse Rate 82 Pulse Rate [Right Pulse Oximeter] Respiratory Rate 14 16 Blood Pressure 142/78 H Blood Pressure [Right Arm] Pulse Oximetry 97 95 95 Oxygen Delivery Method Room Air Nasal Cannula Oxygen Flow Rate 2 08/14/24 17:13 08/14/24 17:30 08/14/24 17:45 Temperature 96.7 F L 97.0 F L Pulse Rate 82 88 94 Pulse Rate [Right Pulse Oximeter] Respiratory Rate 16 16 16 Blood Pressure 155/73 H 153/68 H 149/93 H Blood Pressure [Right Arm] Pulse Oximetry 95 98 97 Oxygen Delivery Method Nasal Cannula Nasal Cannula Nasal Cannula Oxygen Flow Rate 2 2 2 08/14/24 18:00 08/14/24 18:15 08/14/24 18:45 Temperature 97.2 F L Pulse Rate 91 92 97 Pulse Rate [Right Pulse Oximeter] Respiratory Rate 16 16 16 Blood Pressure 163/78 H 150/89 H 140/81 H Blood Pressure [Right Arm] Pulse Oximetry 98 97 98 Oxygen Delivery Method Nasal Cannula Nasal Cannula Nasal Cannula Oxygen Flow Rate 2 2 2 08/14/24 19:00 08/14/24 20:00 08/14/24 21:00 Temperature 97.2 F L 97.6 F 97.6 F Pulse Rate 94 91 90 Pulse Rate [Right Pulse Oximeter] Respiratory Rate 16 16 16 Blood Pressure 174/87 H 156/73 H 151/88 H Blood Pressure [Right Arm] Pulse Oximetry 98 99 98 Oxygen Delivery Method Nasal Cannula Nasal Cannula Nasal Cannula Oxygen Flow Rate 2 2 2 08/14/24 22:35 08/14/24 22:59 08/14/24 22:59 Temperature 97.5 F L Pulse Rate 88 Pulse Rate [Right Pulse Oximeter] Respiratory Rate 16 16 Blood Pressure 174/73 H Blood Pressure [Right Arm] Pulse Oximetry 91 91 91 Oxygen Delivery Method Room Air Nasal Cannula Oxygen Flow Rate 2 08/14/24 23:00 08/15/24 02:06 08/15/24 07:53 Temperature 97.9 F 97.9 F Pulse Rate 88 Pulse Rate [Right Pulse Oximeter] 78 Respiratory Rate 16 Blood Pressure 149/74 H Blood Pressure [Right Arm] 149/74 H Pulse Oximetry 97 97 95 Oxygen Delivery Method Nasal Cannula Nasal Cannula Oxygen Flow Rate 1 1 08/15/24 07:53 08/15/24 07:53 08/15/24 13:24 Temperature 98.8 F 98.5 F Pulse Rate Pulse Rate [Right Pulse Oximeter] 98 102 H Respiratory Rate 18 18 18 Blood Pressure Blood Pressure [Right Arm] 154/61 H 173/82 H Pulse Oximetry 95 95 92 Oxygen Delivery Method Room Air Room Air Room Air Oxygen Flow Rate Assessment and Plan Assessment and plan (1) Osteoarthritis of left knee: Problem details: -POD#1 s/p L TKA, Dr. Su -perioperative management including pain management and anticoagulation per Orthopedic surgery -encourage postoperative pulmonary hygiene -PT OT consults -plan to discharge home with sister today, 08/15/2024 Status: Acute (2) Seizure disorder: Problem details: -stable, continue lamotrigine, seizure precautions Status: Acute (3) Type I diabetes mellitus: Problem details: -postop glucose 115 -continue home insulin pump, monitoring ACHS as long as accurate with Accu-Chek Status: Acute (4) Hypertension: Problem details: -hypertensive postoperatively, continue home medications Status: Acute Plan - Complete 23 hour perioperative antibiotics. - PT/OT consult for education and assistance. - Social work consult for discharge planning - Prescribed analgesics as needed - DVT prophylaxis: 81 mg aspirin by mouth twice daily, walking, and SCDs - Anticipation is for discharge to home with family/friends today 08/15/2024 if the patient remains medically stable, pain is controlled, and they are safe with mobilization. At this point, patient's pain is not well managed. We will try different options for pain including Vistaril, Celebrex, and oral Dilaudid. Per therapy, the feel that she is doing well but has a poor pain tolerance. I believe this is also in the setting of recent back surgeries. We will see how she does this afternoon; that she may stay overnight because of poor pain management.
[2024-08-15] MEDS: ATORVASTATIN 10 MG TABLET PO (17:44)
[2024-08-15] MEDS: ROPINIROLE HCL 1 MG TABLET PO (18:43)
--- NOTE | 2024-08-15 18:56 | PC.NURSE ---
End of shift: patient alert and oriented. Tolerating a reg. diet on RA. Rates pain 8/10 PRN oral dilauded given. Patients dressing to Left knee, C/D/I. BG 134, patient independently checking Dexcom to manage blood sugars. Patient has insulin pump to manage her own insulin. Insulin tracking sheet given to patient to log her Blood sugars and any bolus needed.
[2024-08-15] MEDS: lamoTRIgine 100 MG TABLET 450 MG PO (20:29)
[2024-08-16] MEDS: HYDROmorphone 2 MG TABLET PO ×2 (00:02→08:30)
[2024-08-16] MEDS: hydrOXYzine pamoate 25 MG CAPSULE 50 MG PO ×2 (02:39→08:29)
[2024-08-16] MEDS: ACETAMINOPHEN 500 MG TABLET 1000 MG PO ×2 (02:39→08:29)
[2024-08-16 02:40] VITALS: BP 150/66; PULSE 93; RESP 18; TEMP 36.7; O2SAT 95
[2024-08-16] MEDS: polyethylene glycoL 3350 17 GM PACK PO (06:26)
[2024-08-16 07:30] VITALS: BP 135/60; PULSE 89; RESP 18; TEMP 36.3; O2SAT 96
--- NOTE | 2024-08-16 07:47 | PC.NURSE ---
End of shift note [id number]: Pt alert & oriented x 4 and able to make needs known. Incision to anterior L knee noted to be C/D/I with CMS to LLE intact. Pt transferring/ambulating with assist of 1 with FWW and gait belt. Blood glucose of 140 at HS. PRN Dilaudid and scheduled Tylenol given for pain control along with rest, repositioning and ice. Pt has been afebrile. 1 liter oxygen worn overnight due to O2 sat of 84% on RA when asleep. Pt continent of bladder and is passing flatus. PRN Miralax administered this morning due to last BM of 08/12/24 per pt report. Pt also receiving scheduled Senna. Pt continent of bladder. Call light within reach.
[2024-08-16] MEDS: LACOSAMIDE 50 MG TABLET 100 MG PO (08:29)
[2024-08-16] MEDS: SENNOSIDES 1 TAB TABLET 2 TAB PO (08:29)
[2024-08-16] MEDS: CELECOXIB 200 MG CAPSULE PO (08:29)
[2024-08-16] MEDS: ASPIRIN 81 MG TABLET EC PO (08:29)
[2024-08-16] MEDS: SODIUM CHLORIDE 0.9 % (FLUSH) 10 ML SYRINGE 5 ML IVF (08:30)
[2024-08-16] MEDS: PREGABALIN 75 MG CAPSULE 150 MG PO (08:30)
--- NOTE | 2024-08-16 10:00 | PC.SOCIAL ---
Discharge planning: Social work communications marketing intern called [facility] to confirm that the pt is discharging today. They said they will send someone out tomorrow to begin home care. Social work communications marketing intern discussed the plan with pt and she is pleased to receive home care. Social work communications marketing intern confirmed pt had the social work number for any further questions. Social work to follow up as needed.
[2024-08-16 10:25] VITALS: BP 130/52; PULSE 98; RESP 16; TEMP 36.8; O2SAT 92
--- NOTE | 2024-08-16 11:23 | PC.NURSE ---
Pt alert and oriented. Pt had complaints of pain ranging 2-5; see EMAR for intervention. Pt up with SBA with walker and gait belt. Pt's dressing is dry and intact. Pt discharged home with sister; follow up with PA next week.
--- NOTE | 2024-08-16 11:25 | PC.NURSE ---
Pt has Dexcom in place and insulin pump; that is controlled by Pt per physicians order.
--- NOTE | 2024-08-16 11:39 | PM.ORPN ---
Subjective Subjective Date Seen: 08/16/24 Principal diagnosis: Status postop day 2 left total knee arthroplasty Interval history: Patient reports doing better. Less pain today. Still a lot of pain with motion however. No acute events over night. Pain managed with scheduled and PRN medications, ice. Believes the oral Dilaudid is more helpful. DVT prophylaxis: 81 mg aspirin by mouth twice daily, SCDs, walking. Denies fevers, chills, aches, N/V, CP, SOB/FLORES, or lightheadedness. She will receive physical therapy in her home as well as nurse visit. Does not drive. Ortho Exam Narrative Exam Narrative: -Patient appears comfortable; no apparent acute distress -Alert and oriented times 3 -Operative knee mildly swollen; soft tissues supple; no ecchymosis; no erythematous streaking Warmth appropriate -Surgical dressing clean, dry, intact; no drainage -Bilateral calfs soft; no significant swelling, edema, tenderness, erythema, discoloration, warmth, or palpable cords -2+ DP/PT pulses, intact dermatomes and myotomes distally (5/5 strength) Const Vital Signs, click to edit/add: Vital Signs - 24 hr 08/15/24 13:24 08/15/24 15:00 08/15/24 15:00 Temperature 98.5 F Pulse Rate [Right Pulse Oximeter] 102 H 100 Respiratory Rate 18 16 Blood Pressure [Right Arm] 173/82 H Blood Pressure [Right FA] Pulse Oximetry 92 90 Oxygen Delivery Method Room Air Oxygen Flow Rate 08/15/24 15:00 08/15/24 15:00 08/15/24 19:39 Temperature 97.7 F 98.1 F Pulse Rate [Right Pulse Oximeter] 100 97 Respiratory Rate 16 16 18 Blood Pressure [Right Arm] 172/88 H Blood Pressure [Right FA] 151/69 H Pulse Oximetry 9 L 97 Oxygen Delivery Method Room Air Room Air Room Air Oxygen Flow Rate 08/15/24 22:53 08/15/24 22:53 08/15/24 22:54 Temperature 98.3 F Pulse Rate [Right Pulse Oximeter] 94 Respiratory Rate 16 16 Blood Pressure [Right Arm] Blood Pressure [Right FA] 143/60 H Pulse Oximetry 96 96 96 Oxygen Delivery Method Room Air Room Air Oxygen Flow Rate 08/15/24 23:00 08/15/24 23:40 08/15/24 23:42 Temperature Pulse Rate [Right Pulse Oximeter] 94 Respiratory Rate 16 Blood Pressure [Right Arm] Blood Pressure [Right FA] Pulse Oximetry 84 L 96 Oxygen Delivery Method Room Air Nasal Cannula Oxygen Flow Rate 1 08/16/24 02:40 08/16/24 07:30 08/16/24 07:30 Temperature 98.0 F 97.3 F L Pulse Rate [Right Pulse Oximeter] 93 89 Respiratory Rate 18 18 Blood Pressure [Right Arm] Blood Pressure [Right FA] 150/66 H 135/60 Pulse Oximetry 95 96 96 Oxygen Delivery Method Nasal Cannula Nasal Cannula Oxygen Flow Rate 1 1 08/16/24 07:30 08/16/24 10:25 Temperature 98.3 F Pulse Rate [Right Pulse Oximeter] 98 Respiratory Rate 18 16 Blood Pressure [Right Arm] Blood Pressure [Right FA] 130/52 L Pulse Oximetry 96 92 Oxygen Delivery Method Nasal Cannula Room Air Oxygen Flow Rate 1 Assessment and Plan Assessment and plan (1) Osteoarthritis of left knee: Problem details: -POD#2 s/p L TKA, Dr. Su -perioperative management including pain management and anticoagulation per Orthopedic surgery -encourage postoperative pulmonary hygiene -PT OT consults -plan to discharge home with sister today, 08/15/2024 Status: Acute (2) Seizure disorder: Problem details: -stable, continue lamotrigine, seizure precautions Status: Acute (3) Type I diabetes mellitus: Problem details: -postop glucose 115 -continue home insulin pump, monitoring ACHS as long as accurate with Accu-Chek Status: Acute (4) Hypertension: Problem details: -hypertensive postoperatively, continue home medications Status: Acute Plan - Complete 23 hour perioperative antibiotics. - PT/OT consult for education and assistance. - Social work consult for discharge planning - Prescribed analgesics as needed - DVT prophylaxis: 81 mg aspirin by mouth twice daily, walking, and SCDs. Patient requests that we do not fill aspirin that she has this at home. She will take it b.i.d.. - Anticipation is for discharge to home with family/friends today 08/16/2024 if the patient remains medically stable, pain is controlled, and they are safe with mobilization.
== END 2024-08-16 11:04 | disposition home or self-care (01) | DRG 470 ==
LOC: OR 14:49 → MEDSURG 08-16 08:48
PROVIDERS: Admitting Provider Orthopaedic Surgery Sports Medicine; PCP Surgery; Visit Provider Orthopaedic Surgery Sports Medicine
PROC: 0SRD0J9 Replacement of Left Knee Joint with Synthetic Substitute, Cemented, Open Approach (ICD-10-PCS; CPT 27447; principal; 2024-08-14 13:15)
DX: M17.12 Unilateral primary osteoarthritis, left knee (principal); G89.18 Other acute postprocedural pain; E10.8 Type 1 diabetes mellitus with unspecified complications; Z79.4 Long term (current) use of insulin; Z96.41 Presence of insulin pump (external) (internal); I10 Essential (primary) hypertension; G40.909 Epilepsy, unspecified, not intractable, without status epilepticus; E78.5 Hyperlipidemia, unspecified; E03.9 Hypothyroidism, unspecified; K90.0 Celiac disease; M48.061 Spinal stenosis, lumbar region without neurogenic claudication; Z98.1 Arthrodesis status; M51.26 Other intervertebral disc displacement, lumbar region; F33.41 Major depressive disorder, recurrent, in partial remission; E66.9 Obesity, unspecified; Z68.38 Body mass index [BMI] 38.0-38.9, adult
CPT/HCPCS: 01402; 36415; 64447; 64454; 73560; 76942; 82565; 82962; 84132; 84295; 84520; 85025; 94761; 97110; 97116; 97161; 97165; 97530; 97535; A9270; C1776; J0330; J0665; J0690; J1171; J2250; J2405; J2704; J3010; J7030; J7120

== ENCOUNTER 2024-09-06 17:39 | Inpatient (IN) | payer MEDICARE, MEDICAID, SELFPAY ==
[2024-09-06] VITALS (30 sets, daily range): BP systolic 82–153; BP diastolic 39–121; PULSE 99–111; RESP 14–18; TEMP 36.3–37.2; O2SAT 68–100
[2024-09-06] MEDS: LACTATED RINGERS 1000 ML 1,000 ML 100 ML IV (10:15)
--- NOTE | 2024-09-06 12:35 | W.PM.H&PU ---
History & Physical Update History & Physical Update H&P Reviewed and patient assessed: The following changes are noted below H&P Updates: Registered Client Associate noted this morning she was sitting on the edge of the bed. She ended up slipping off the bed and squatting and deep squat. She felt pain about the anterior left knee. Noted that the wound had opened and started to bleed. She presented to our clinic within an hour. There, she was evaluated and found indeed have opened her incision approximately 6 cm. This is surrounded by inflamed irritated skin tissue that we believe is subsequent to a reaction from a different surgical prep that was used during her procedure. We have had a few such rash experiences from this prep. We have since gone away from it. We have communicated with the manufacture to inform them of multiple such rashes. None the less, for soft metals hand engraver today, the goal is to wash out her wound, debride any unhealthy tissue, inspect the deeper layers to ensure that the capsule and quad mechanism are still intact. I would expect being able to close the wound directly and allowing same day surgery scenario. Of note, she is a diabetic. She reports a recent hemoglobin A1c of 7.1 approximately 2 weeks ago. Her glucose based on her monitor at the bedside today shows 260. I have encouraged her to try to help improve this control on a regular basis.
[2024-09-06] MEDS: INSULIN REGULAR, HUMAN 100 UNIT/ML VIAL 6 UNIT SUBCUT ×2 (13:10→14:26)
--- NOTE | 2024-09-06 14:46 | SUR.PREOP ---
1430: Patient to restroom via wheelchair. Pt toileted independently. Patient returned to room via wheelchair. Patient states blood glucose is [address] Li notified, see Insulin order. Insulin administered.
[2024-09-06] MEDS: CEFAZOLIN 2 GM in 0.9 % SODIUM CHLORIDE Mini-bag 100 ML IVPB (15:00)
--- NOTE | 2024-09-06 15:04 | W.ANESCHARGE ---
Anesthesia Charges Start Date/Time Anesthesia Start Date: 09/06/24 Anesthesia Start Time: 13:35 Stop Date/Time Anesthesia Stop Date: 09/06/24 Anesthesia Stop Time: 16:15
[2024-09-06] MEDS: VANCOMYCIN 100 MG/ML INJ 2000 MG TOPICAL (15:15)
--- NOTE | 2024-09-06 15:55 | SUR.OPER ---
patient has multiple small scabs on left leg pre and post op
--- NOTE | 2024-09-06 16:21 | P.ORPRC_ITS ---
Procedure Note Date of procedure: 09/06/24 Procedure: PREOPERATIVE DIAGNOSIS: 1. Left total knee arthroplasty with traumatic knee incision dehiscence/split 2. Diabetes mellitus type 1 POSTOPERATIVE DIAGNOSIS: 1. Left total knee arthroplasty deep infection/abscess 2. Diabetes mellitus type 1 PROCEDURE: 1. Left knee incision and drainage of deep abscess/deep TKA infection, acute 2. Left knee excisional debridement of a variety tissue including skin, subcu, and fascia. 3. Left knee antibiotic bead placement for local elution of antibiotics SURGEON: Skyler Renner MD. HACK DRIVER: KVNG Chávez; David Ross PA-C - Of note, an payroll human resources assistant was critical for this case to aid in patient positioning, tissue retraction, limb manipulation/positioning, patient safety, & closure. ANESTHESIA: General endotracheal anesthetic EBL: 25 mL IMPLANTS: None TOURNIQUET: 60 minutes at 300 torr COMPLICATIONS: None evident INDICATIONS: The patient is a pleasant 53-year-old female who underwent left TKA 08/14/2024. In the postop time she initially did well. Unfortunately, last few days she has noted difficulty with straight leg raise to action today, 09/06/2024, she slid off of her bed with somewhat of a slight hyperflexion to her left knee. She noted the wound split open at that time. She presented to our clinic soon thereafter were this was further inspected and found to have proximal 7 cm of wound that was split. Given this traumatic situation, it was felt prudent to bring her to the operating room to further evaluate this and probe the deeper layers to understand if there are any other pathology associated. Upon deeper probing, it was found that purulence was encountered. Although the capsule appear to have tight closure, purulence was coming from the joint itself. You have a good weekend as well. DESCRIPTION OF PROCEDURE: Following a thorough discussion of risks, benefits, and alternatives consent was obtained and the operative extremity was marked. The patient was brought to the operating room and placed supine on the operating table. An initial superficial culture was obtained prior to antibiotic administration after sterile ChloraPrep of the operative knee. Of note, after this 2 g IV Ancef was administered within 1 hour incision preoperatively. Proper time-out was performed identifying proper patient, site, and procedure. Then, the limb was exsanguinated and the tourniquet inflated. The traumatic wound dehiscence was found to be 7 cm in length. Initially, this was minimally debrided and palpation of the deeper tissues found slight tracking laterally, but not significant medial tracking. However, we elected to enlarged the incision slightly to better inspect the deeper tissues. Upon deeper inspection, there was a slight purulence encountered along the medial aspect of the knee. We tracked this down towards are in deep retinacular closure and found that although the sutures had at appearing tight closure, there was some yellowish, cloudy, purulent drainage coming from the joint itself. As such, we opened the full length of the incision so that we could access the left knee joint proper. We removed the previous sutures. We also removed the PDS sutures/Stratafix sutures that were closing the retinacular flap. Indeed purulence was encountered. Thorough irrigation normal saline was performed. Debridement was some retained see performed with the combination of 15 blade scalpel, rongeur, and curette. 3 L normal saline was initially utilized for irrigation. Then, further debridement and more irrigation was performed. After this, we read draped the entire surgical field so as to have us somewhat clean environment. Antibiotic beads were mixed on the back table using tobramycin cement and 2 g IV vancomycin and powder form. The powder was mixed with the cement by hand. The cement was then rolled into small balls and put onto a string of Ethibond suture. The antibiotic beads were placed into the suprapatellar pouch around the patellar component. 10 antibiotic beads were on a string. The retinaculum was then closed with 3 Prolene sutures (# 0.) The subcutaneous layer was then closed with 2-0 Prolene in a running fashion. Mepilex dressing was applied. Tourniquet was deflated. Patient was woken from anesthesia and transferred to the recovery room in stable condition. PLAN: 1. Encourage elevation of the operative extremity. 2. No range of motion of operative extremity. 3. Ibuprofen, acetaminophen and/or hydromorphone as needed for pain. 4. Weight bear as tolerated operative extremity in knee immobilizer. Knee immobilizer should be worn at all times. 5. Continue empiric IV antibiotics until culture sensitivities return. 6. Anticipate need for PICC line and long-term IV antibiotic use and eventually transition oral antibiotics. 7. Anticipate need for infectious disease consultation 1 sensitivities return. 8. Admit to the hospital at this time. Hospitalist consultation has been placed. Will appreciate their insight and expertise for ongoing medical management. 9. Expect return to the operating room on the 09/11/2024
[2024-09-06] MEDS: fentaNYL 100 MCG/2 ML inj 50 MCG IVP ×2 (16:31→16:45)
--- NOTE | 2024-09-06 16:31 | W.ANESCHARGE ---
Anesthesia Charges Start Date/Time Anesthesia Start Date: 09/06/24 Anesthesia Start Time: 14:40 Stop Date/Time Anesthesia Stop Date: 09/06/24 Anesthesia Stop Time: 16:22
--- NOTE | 2024-09-06 16:33 | W.ANESCHARGE ---
Anesthesia Charges Start Date/Time Anesthesia Start Date: 09/06/24 Anesthesia Start Time: 14:40 Stop Date/Time Anesthesia Stop Date: 09/06/24 Anesthesia Stop Time: 16:22
--- NOTE | 2024-09-06 16:42 | SUR.PHASEI ---
Patient arrived to PACU with oral airway and oxygen saturation 88 at first reading. Mask oxygen applied immediately. Complaining of left knee pain at a level 7. Medication given
--- NOTE | 2024-09-06 17:02 | SUR.PHASEI ---
Patient received a second dose of medication for pain, pain level dropped to a 5. LIBRARY MONITOR started a new IV in the right upper arm using ultrasound guideance
--- NOTE | 2024-09-06 17:03 | SUR.PHASEI ---
Trial of patient on room air and her oxygen saturation drops to 89%. When reminded to take deep breaths it goes up to 90 or 91% saturation. Oxygen mask reapplied and O2 saturation at 98 % to 100 %
--- NOTE | 2024-09-06 17:16 | SUR.PHASEI ---
Call and Text to David Ross for patient regarding oxygen on floor.
--- NOTE | 2024-09-06 17:21 | SUR.PHASEI ---
Talked to David Ross regarding an oxygen order for the floor due to low saturation when off oxygen. David will verify O2 prn for floor. Meets PACU discharge criteria
--- NOTE | 2024-09-06 17:33 | SUR.PHASEI ---
Report given to labor commissioner regarding oxygen saturation and there is an order for oxygen as needed.
[2024-09-06] MEDS: LACTATED RINGERS 1000 ML 1,000 ML 75 ML IV (17:48)
--- NOTE | 2024-09-06 18:20 | PM.IMCN1 ---
Date of Consult Patient: [facility] Patient Consult date: 08/14/24 Requesting Physician: Orthopedics Primary Care Provider: David Parisi MD Consult Narrative Reason for consult: Medical management Narrative: Jennifer May is a 53 year old female w/ PMHx of DM Type I, HTN, HLD, obesity and epilepsy who presents from Ortho office due to left total knee arthroplasty deep infection. Patient underwent left TKA on 08/14/2024. A few days ago she has noted difficulty with straight leg raise to action; today, 09/06/2024, she slid off of her bed with somewhat of a slight hyperflexion to her left knee. She noted the wound split open at that time. She presented to ortho clinic soon thereafter and found to have proximal 7 cm of wound that was split. Pt was admitted for Left knee incision and drainage of deep abscess/deep TKA infection & debridement. Left knee antibiotic bead was placed for local elution of antibiotics. Review of Systems Narrative: REVIEW OF SYSTEMS: Complete review of systems performed and negative unless otherwise stated in HPI or below. [facility] Medical History (Updated 09/06/24 @ 20:06 by Terese Driver MD) Dyslipidemia ?E78.5 - Hyperlipidemia, unspecified (ICD-10) Hypothyroidism ?E03.9 - Hypothyroidism, unspecified (ICD-10) Insulin pump in place ?Z96.41 - Presence of insulin pump (external) (internal) (ICD-10) Depression ?F32.A - Depression, unspecified (ICD-10) Hypertension ?I10 - Essential (primary) hypertension (ICD-10) Seizure disorder ?G40.909 - Epilepsy, unspecified, not intractable, without status epilepticus (ICD-10) Right-sided low back pain with right-sided sciatica ?M54.41 - Lumbago with sciatica, right side (ICD-10) Spinal stenosis of lumbar region without neurogenic claudication ?M48.061 - Spinal stenosis, lumbar region without neurogenic claudication (ICD-10) Lumbar disc herniation ?M51.26 - Other intervertebral disc displacement, lumbar region (ICD-10) Celiac disease ?K90.0 - Celiac disease (ICD-10) Dysuria ?R30.0 - Dysuria (ICD-10) Surgical History (Updated 09/06/24 @ 11:41 by David Ross PA-C) History of arthroplasty of left knee (08/14/24) ?Z96.652 - Presence of left artificial knee joint (ICD-10) History of lumbar fusion (03/20/24) ?Z98.1 - Arthrodesis status (ICD-10) History of lumbar laminectomy for spinal cord decompression (02/22/22) ?Z98.890 - Other specified postprocedural states (ICD-10) History of laminectomy (01/14/22) ?Z98.890 - Other specified postprocedural states (ICD-10) History of endometrial ablation (2005) ?Z98.890 - Other specified postprocedural states (ICD-10) History of esophagogastroduodenoscopy (EGD) (08/2014) ?Z98.890 - Other specified postprocedural states (ICD-10) H/O bilateral cataract extraction (1987) ?Z98.41 - Cataract extraction status, right eye (ICD-10) ?Z98.42 - Cataract extraction status, left eye (ICD-10) Status post lumbar spine surgery for decompression of spinal cord (06/18/19) ?Z98.890 - Other specified postprocedural states (ICD-10) History of lumbar fusion (04/26/16) ?Z98.1 - Arthrodesis status (ICD-10) History of hysteroscopy ?Z98.890 - Other specified postprocedural states (ICD-10) History of carpal tunnel surgery of left wrist (09/28/07) ?Z98.890 - Other specified postprocedural states (ICD-10) S/P cervical spinal fusion (03/18/10) ?Z98.1 - Arthrodesis status (ICD-10) History of carpal tunnel surgery of right wrist (07/15/08) ?Z98.890 - Other specified postprocedural states (ICD-10) History of appendectomy (2001) ?Z90.49 - Acquired absence of other specified parts of digestive tract (ICD-10) Social History (Reviewed 08/22/24 @ 09:49 by Kathleen Hull ~ [facility]) What is your current living situation?: I presently have a place to live Problems where you live: no known problems In the past 12 months, utilities in danger of being shut off: no In the past 12 mos, have been you worried that your food would run out before you had money to buy more?: never true In the past 12 mos, the food you bought just didn't last and you didn't have money to buy more?: never true Smoking Status: Never smoker Do you use any of these nicotine containing products: None Second hand tobacco smoke exposure: No How often do you have a drink containing alcohol: monthly or less AUDIT-C Alcohol total score: 1 Non-prescribed substance use: denies use Caffeine: Yes (coffee) How often does anyone, including family, friends and others, physically hurt you: never How often does anyone, including family, friends and others, insult or talk down to you: never How often does anyone, including family, friends and others, threaten you with harm: never How often does anyone, including family, friends and others, scream or curse at you: never Are you using contraception or practicing any form of control: No Meds Home Medications and Allergies Home Medications ?Medication ?Instructions ?Recorded ?Confirmed ?Type betamethasone dipropionate 0.05 % 1 applic topical Q12H PRN 07/03/22 09/06/24 History topical cream duloxetine 20 mg capsule,delayed 40 mg PO DAILY 07/03/22 09/06/24 History release lamotrigine 200 mg tablet,extended 200 mg PO HS 07/03/22 09/06/24 History release 24 hr lamotrigine 250 mg tablet,extended 250 mg PO HS 07/03/22 09/06/24 History release 24 hr meclizine 12.5 mg tablet 12.5 mg PO TID PRN 07/03/22 09/06/24 History pregabalin 150 mg capsule (Lyrica) 150 mg PO BID 07/03/22 09/06/24 History zolpidem 5 mg tablet 5 mg PO HS PRN 07/03/22 09/06/24 History atorvastatin 10 mg tablet 10 mg PO QPM 02/28/23 09/06/24 History glucagon 1 mg/0.2 mL subcutaneous 1 mg subcut DAILY PRN 06/28/24 09/06/24 History syringe (Gvoke PFS 1-Pack) ropinirole 0.5 mg tablet 1 mg PO HS 06/28/24 09/06/24 History albuterol sulfate 2.5 mg/3 mL 2.5 mg inhalation Q4H PRN 08/14/24 09/06/24 History (0.083 %) solution for nebulization amlodipine 5 mg tablet 5 mg PO DAILY 08/14/24 09/06/24 History ascorbic acid (vitamin C) 500 mg 500 mg PO DAILY 08/14/24 09/06/24 History tablet cholecalciferol (vitamin D3) 25 50 mcg PO DAILY 08/14/24 09/06/24 History mcg (1,000 unit) tablet ferrous sulfate 325 mg (65 mg 325 mg PO DAILY 08/14/24 09/06/24 History iron) tablet (Feosol) insulin lispro 100 unit/mL 50 - 60 unit subcut DAILY 08/14/24 09/06/24 History subcutaneous solution (Admelog U-100 Insulin lispro) acetaminophen 500 mg tablet 500 mg PO Q6H PRN 09/06/24 09/06/24 History (Tylenol Extra Strength) Allergies Allergy/AdvReac Type Severity Reaction Status Date / Time wheat Allergy Unknown Dizziness Verified 09/06/24 08:35 ibuprofen Allergy retinal Verified 09/06/24 08:35 hemorrhage penicillin V Allergy Rash Verified 09/06/24 08:35 Exam Narrative: Exam Narrative: Physical exam GENERAL: Comfortable, no acute distress. HEAD AND NECK: Atraumatic, normocephalic CARDIOVASCULAR: RRR. Normal S1, S2. No murmurs. RESPIRATORY: Good air entry B/L. pt has wheezes. GASTROINTESTINAL: not tender to palpation. NEUROLOGY: Alert, awake, oriented. Normal speech. PSYCH: Normal mood, normal affect. Const: Vital Signs, click to edit/add: Vital Signs - 24 hr 09/06/24 13:13 09/06/24 16:19 09/06/24 16:25 Temperature 97.4 F L 97.9 F Pulse Rate 110 H 103 H 101 H Respiratory Rate 18 17 18 Blood Pressure 142/54 H 134/58 L 138/64 Pulse Oximetry 94 100 100 Oxygen Delivery Me thod Room Air Aerosol Mask Aerosol Mask Oxygen Flow Rate 10 10 Fraction of Inspir ed Oxygen 09/06/24 16:30 09/06/24 16:35 09/06/24 16:40 Temperature Pulse Rate 99 99 105 H Respiratory Rate 18 16 16 Blood Pressure 139/75 153/68 H 135/71 Pulse Oximetry 99 99 99 Oxygen Delivery Me thod Aerosol Mask Aerosol Mask Aerosol Mask Oxygen Flow Rate 10 10 Fraction of Inspir ed Oxygen 10 09/06/24 16:45 09/06/24 16:50 09/06/24 16:55 Temperature 98.2 F Pulse Rate 104 H 106 H 111 H Respiratory Rate 16 16 16 Blood Pressure 136/90 H 136/90 H Pulse Oximetry 100 91 89 Oxygen Delivery Me thod Aerosol Mask Room Air Room Air Oxygen Flow Rate Fraction of Inspir ed Oxygen 10 0 0 09/06/24 17:01 09/06/24 17:05 09/06/24 17:08 Temperature Pulse Rate 106 H 106 H 106 H Respiratory Rate 16 16 16 Blood Pressure 134/121 H 112/73 118/77 Pulse Oximetry 96 96 96 Oxygen Delivery Me thod Aerosol Mask Aerosol Mask Aerosol Mask Oxygen Flow Rate 10 10 10 Fraction of Inspir ed Oxygen 0 0 0 09/06/24 17:20 09/06/24 17:30 09/06/24 17:30 Temperature 98.2 F 99 F 99 F Pulse Rate 105 H 106 H 106 H Respiratory Rate 16 14 14 Blood Pressure 113/86 102/39 L 102/39 L Pulse Oximetry 96 76 L 76 L Oxygen Delivery Me thod Aerosol Mask Room Air Room Air Oxygen Flow Rate 10 Fraction of Inspir ed Oxygen 0 Assessment and Plan Assessment and plan (1) Postoperative wound dehiscence: Problem comment: -S/P Left knee incision and drainage of deep abscess/deep TKA infection & debridement. Left knee antibiotic bead was placed for local elution of antibiotics. -Weight bear as tolerated operative extremity in knee immobilizer. Knee immobilizer should be worn at all times. -orthopedic started wide spectrum IV antibiotics: Vancomycin and Zosyn and they anticipate need for PICC line and long-term IV antibiotic use and eventually transition oral antibiotics in addition to anticipating the need for infectious disease consultation once sensitivities return. -wound culture pending from her left knee. -orthopedics expect return to the operating room on the 09/11/2024. -pain management Status: Acute (2) Postoperative wound infection: Problem comment: -As above Status: Suspected (3) Osteoarthritis of left knee: Problem comment: -s/p L TKA, Dr. Su 08/14/2024 Status: Acute (4) Seizure disorder: Problem comment: -well controlled, last seizure was in May 2022. -Continue lamotrigine, and lacosamide. -seizure precautions Status: Acute (5) Type I diabetes mellitus: Problem comment: -patient does not have her home insulin pump on her. -will start her on Accu-Cheks and low-dose insulin sliding scale. -might start her on insulin glargine if her Accu-Cheks are consistently above 200. Status: Acute (6) Hypertension: Problem comment: -Soft BP postoperatively, hold home medications Status: Acute (7) Dyslipidemia: Status: Acute Plan as above Total Time Spent Total Time Spent: Total time spent caring for the patient today was 45 minutes. This includes time spent for the visit reviewing the chart, time spent during the visit, time spent after the visit and documentation and planning in coordination of care.
[2024-09-06] MEDS: OXYCODONE 5 MG TABLET PO (18:37)
[2024-09-06] MEDS: PIPERACILLIN/TAZOBACTAM 3.375 GM in 0.9 % SODIUM CHLORIDE Mini-bag 100 ML IVPB (18:38)
[2024-09-06] MEDS: ACETAMINOPHEN 500 MG TABLET 1000 MG PO (20:00)
[2024-09-06] MEDS: ASPIRIN 81 MG TABLET EC PO (21:24)
[2024-09-06] MEDS: SENNOSIDES 1 TAB TABLET 2 TAB PO (21:24)
--- NOTE | 2024-09-06 21:45 | CRLHL7_ITS ---
For Patients: As a result of the Century Cures Act, medical imaging exams and procedure reports are released immediately into your electronic medical record. You may view this report before your referring provider. If you have questions, please contact your health care provider. INDICATION: Shortness of breath. TECHNIQUE: Chest 1 view. COMPARISON: None. FINDINGS: Cardiovascular and mediastinum: Heart size and vasculature are normal in caliber and appearance. Lungs and pleural spaces: Lungs are clear. No pleural effusion, or pneumothorax. Bones and soft tissues: Cervical and lumbar spine fusion hardware. Otherwise, unremarkable for age. IMPRESSION: No evidence of an acute pulmonary process. Dictated by Alexis Vela MD @ 09/06/2024 11:10:24 PM (Electronically Signed)
[2024-09-06] MEDS: DULOXETINE HCL 20 MG CAPSULE DR 40 MG PO (22:01)
[2024-09-06] MEDS: INSULIN GLARGINE,HUM.REC.ANLOG 100 UNIT/ML INSULN.PEN 20 UNIT SUBCUT (22:22)
[2024-09-06] MEDS: 0.9 % SODIUM CHLORIDE 500 ML IV (22:44)
[2024-09-06 23:07] LABS: HCO3 VBG 24 mmol/L (21-28); PCO2 VBG 50 mmHG (40-50); PO2 VBG 40.6 mmHG (25-47)
[2024-09-06 23:23] LABS: Chloride* 104 mmol/L (96-114); Sodium* 135 mmol/L (135-149)
[2024-09-06 23:25] LABS: Anion Gap 8 mEq/L (7-15); Bilirubin Total* 0.4 mg/dL (0.1-1.5); Carbon Dioxide* 23 mmol/L (20-32); Creatinine* 1.7 mg/dL (0.5-1.5); Estimated Glomerular Filt Rate 35 ml/min
[2024-09-06 23:26] LABS: Alanine Aminotransferase* 12 U/L (4-35); Alkaline Phosphatase* 137 U/L (40-150); Aspartate Amino Transferase* 19 U/L (12-35); Blood Urea Nitrogen* 50 mg/dL (7-30); Calcium* 8.3 mg/dL (8.4-10.6); Glucose* 298 mg/dL (60-115); Total Protein* 5.8 g/dL (6.0-8.3)
[2024-09-06 23:35] LABS: NT Pro B Type NatriureticPept* 2270 pg/mL
--- NOTE | 2024-09-06 23:37 | PC.NURSE ---
End of shift: Pt returned from PACU at 1730. BP's have been on the softer side with MAP ranging from 60s - 80s. NaCl 500mL bolus given for this reason. CXR done prior to bolus which was clear. LR still infusing @ 75 mL/hr since she's having low BP's even though she's been PO adequate & has voided once. Pt had an episode of desaturation into the 60s% on NC with tachycardia and SOB. EKG was done showing sinus tach and provider notified- labs were drawn. Pt has been A&O and afebrile but drowsy, in and out of conversation but easily arousable. She received PRN oxycodone once @1835 10mg. Blood sugars have been 167 > 259 according to her Dexcom (243 finger stick). 20 units glargine given @ HS and SS dosing starting tomorrow. Pt's sister is supposed to bring home meds and insulin pump tomorrow as well. She's on scheduled IV Zosyn and IV Vancomycin. Immobilizer to LLE to remain on at all times. She can be WBAT to LLE. She has not been out of bed yet tonight d/t low blood pressures & drowsiness. PIV x2 in left wrist and in right AC; per GENERAL MAINTENANCE ENGINEER she was a VERY HARD stick. Plan is for a PICC line for long-term abx and she will return to the OR on Tuesday 09/11 to have the antibiotic beads removed. Wound cultures from left knee are pending.
[2024-09-06 23:39] LABS: D Dimer Quantitative* 6.92 ug/ml (0.00-0.50)
--- NOTE | 2024-09-06 23:52 | CRLHL7_ITS ---
For Patients: As a result of the Century Cures Act, medical imaging exams and procedure reports are released immediately into your electronic medical record. You may view this report before your referring provider. If you have questions, please contact your health care provider. INDICATION: Shortness of breath. TECHNIQUE: CT of the chest acquired with 95 cc Isovue 370 IV contrast according to the PE protocol. Coronal and sagittal reconstructions. COMPARISON: Chest radiograph 09/06/2024. FINDINGS: Cardiovascular structures: Heart size upper limits of normal. Normal caliber thoracic aorta and central pulmonary arteries. No acute pulmonary embolism identified. Mediastinum and gerald: No pathologically enlarged lymph nodes. No pericardial effusion. Lungs and pleura: Expiratory acquisition with low lung volumes and scattered atelectasis. Mosaic attenuation throughout the lungs which can be seen with air trapping or small airways disease. Bronchial wall thickening in the lower lungs. No focal consolidation, pleural effusion, or pneumothorax. 3 mm noncalcified pulmonary nodule in the anterior right upper lobe (series 8, image 56). 4 mm noncalcified pulmonary nodule in the lateral left lower lobe (image 88). Chest wall: Few borderline enlarged right axillary lymph nodes. Mildly prominent left axillary lymph nodes. These may be reactive. Upper abdomen: Evaluation is limited by streak artifact. No significant findings. Bones: Partially visualized cervical and lumbar spine hardware. IMPRESSION: 1. Negative for acute pulmonary embolism. 2. Expiratory acquisition with low lung volumes and scattered atelectasis. Mosaic attenuation which can be seen with air trapping or small airways disease. No focal lung infiltrates. 3. Lower lung bronchial wall thickening could be due to bronchitis. 4. Noncalcified pulmonary nodules measuring up to 4 mm. Please see follow-up guidelines below. [employer] GUID[employer]INES - SOLID NODULES: : MULTIPLE LOW RISK - nodule less than 6 mm: No routine follow-up. - nodule 6-8 mm: CT at 3-6 months, then consider CT at 18-24 months. - nodule greater than 8 mm: CT at 3-6 months, then consider CT at 18-24 months. MULTIPLE HIGH RISK - nodule less than 6 mm: Optional CT at 12 months. - nodule 6-8 mm: CT at 3-6 months, then at 18-24 months. - nodule greater than 8 mm: CT at 3-6 months, then at 18-24 months. Please note that all CT scans at this facility use dose modulation, iterative reconstruction, and/or weight-based dosing when appropriate to reduce radiation dose to as low as reasonably achievable. Dictated by Dana Maldonado MD @ 09/07/2024 1:10:31 AM (Electronically Signed)
[2024-09-07] VITALS (11 sets, daily range): BP systolic 104–145; BP diastolic 49–63; PULSE 61–97; RESP 16–22; TEMP 36.4–37.2; O2SAT 91–98
[2024-09-07] MEDS: PIPERACILLIN/TAZOBACTAM 3.375 GM in 0.9 % SODIUM CHLORIDE Mini-bag 100 ML IVPB ×4 (00:42→19:02)
[2024-09-07] MEDS: ACETAMINOPHEN 500 MG TABLET 1000 MG PO ×4 (03:40→20:42)
[2024-09-07] MEDS: OXYCODONE 5 MG TABLET PO (03:40)
[2024-09-07] MEDS: INSULIN ASPART 100 UNIT/ML SUBCUT ×5 (04:57→20:46)
--- NOTE | 2024-09-07 05:56 | PC.NURSE ---
Shift note: Pt was noted to desaturate to as low as 61% and she confirmed SOB. Oxygen 0.5L was given. When the D-Dimer was reviewed it was found to be elevated. CT of the chest ordered but not PE identified. Patient has since been of 1L and remained in bed for the rest of the night. She reported of pain and PRN med given as ordered. Dressing and ENIO wrap appeared clean and dry. Vitally stable. Pt requested for Ambien for sleeping but parts data writer explained to her that it may not help[ with the SOB. Pt had adequate sleep.
[2024-09-07 06:44] LABS: Basophils Percent Auto 0.1 % (0.0-3.0); Eosinophils Percent Auto 0.2 % (0.0-7.0); Hematocrit 32.3 % (33.0-51.0); Hemoglobin* 9.9 gm/dL (12.0-16.0); Immature Granulocytes Pct Auto 0.2 %; Lymphocytes Percent Auto 5.2 % (20-44); Mean Corpuscular HGB Conc 31 gm/dL (32-36); Mean Corpuscular Hemoglobin 29 pg (26-34); Mean Corpuscular Volume 95 fL (80-100); Monocytes Percent Auto 4.3 % (0.0-11.0); Platelet Count* 265 K/uL (140-440); RDW Coefficient of Variation % 15.2 % (11.5-15.5); Red Blood Count 3.41 m/uL (4.00-5.20)
[2024-09-07 06:55] LABS: Slide Review Reflex No
[2024-09-07 07:06] LABS: Potassium* 4.9 mmol/L (3.6-5.1); Sodium* 135 mmol/L (135-149)
[2024-09-07 07:09] LABS: Blood Urea Nitrogen* 50 mg/dL (7-30); Creatinine* 1.5 mg/dL (0.5-1.5); Estimated Glomerular Filt Rate 41 ml/min
[2024-09-07] MEDS: DULOXETINE HCL 20 MG CAPSULE DR 40 MG PO (08:42)
[2024-09-07] MEDS: LACOSAMIDE 50 MG TABLET 100 MG PO ×2 (08:42→20:42)
[2024-09-07] MEDS: INSULIN GLARGINE,HUM.REC.ANLOG 100 UNIT/ML INSULN.PEN 20 UNIT SUBCUT ×2 (08:42→20:46)
[2024-09-07] MEDS: SENNOSIDES 1 TAB TABLET 2 TAB PO (08:42)
[2024-09-07] MEDS: PREGABALIN 75 MG CAPSULE 150 MG PO ×2 (08:42→20:50)
[2024-09-07] MEDS: ASPIRIN 81 MG TABLET EC PO ×2 (08:42→20:42)
--- NOTE | 2024-09-07 09:26 | PM.ORPN ---
Subjective Subjective Date Seen: 09/07/24 Principal diagnosis: POD 1 left TKA I&D Interval history: Patient reports doing okay. Low oxygen saturations overnight, concern for possible PE. Chest x-ray and chest CT negative for pathology including PE. Pain managed with scheduled and PRN medications, ice. DVT prophylaxis: 81 mg aspirin by mouth twice daily, SCDs, walking (walking with knee immobilizer in place, weightbear as tolerated). Denies fevers, chills, aches, N/V, CP, SOB/FLORES, or lightheadedness. Notes chronic wheeze. Believes she has NIMESH, and was scheduled to have this workup done this week, which was canceled because of left knee surgery. Ortho Exam Narrative Exam Narrative: -Patient appears comfortable; no apparent acute distress -Alert and oriented times 3 -Operative leg wrapped with Webril and Lázaro, and knee immobilizer. The dressings were not removed, but gauze did not show any saturation -Bilateral calfs soft; no significant swelling, edema, tenderness, erythema, discoloration, warmth, or palpable cords -2+ DP/PT pulses, intact dermatomes and myotomes distally (5/5 strength) Const Vital Signs, click to edit/add: Vital Signs - 24 hr 09/06/24 13:13 09/06/24 16:19 09/06/24 16:25 Temperature 97.4 F L 97.9 F Pulse Rate 110 H 103 H 101 H Pulse Rate [Pulse Oximeter] Respiratory Rate 18 17 18 Blood Pressure 142/54 H 134/58 L 138/64 Blood Pressure [Right Calf] Pulse Oximetry 94 100 100 Oxygen Delivery Method Room Air Aerosol Mask Aerosol Mask Oxygen Flow Rate 10 10 Fraction of Inspired Oxygen 09/06/24 16:30 09/06/24 16:35 09/06/24 16:40 Temperature Pulse Rate 99 99 105 H Pulse Rate [Pulse Oximeter] Respiratory Rate 18 16 16 Blood Pressure 139/75 153/68 H 135/71 Blood Pressure [Right Calf] Pulse Oximetry 99 99 99 Oxygen Delivery Method Aerosol Mask Aerosol Mask Aerosol Mask Oxygen Flow Rate 10 10 Fraction of Inspired Oxygen 10 09/06/24 16:45 09/06/24 16:50 09/06/24 16:55 Temperature 98.2 F Pulse Rate 104 H 106 H 111 H Pulse Rate [Pulse Oximeter] Respiratory Rate 16 16 16 Blood Pressure 136/90 H 136/90 H Blood Pressure [Right Calf] Pulse Oximetry 100 91 89 Oxygen Delivery Method Aerosol Mask Room Air Room Air Oxygen Flow Rate Fraction of Inspired Oxygen 10 0 0 09/06/24 17:01 09/06/24 17:05 09/06/24 17:08 Temperature Pulse Rate 106 H 106 H 106 H Pulse Rate [Pulse Oximeter] Respiratory Rate 16 16 16 Blood Pressure 134/121 H 112/73 118/77 Blood Pressure [Right Calf] Pulse Oximetry 96 96 96 Oxygen Delivery Method Aerosol Mask Aerosol Mask Aerosol Mask Oxygen Flow Rate 10 10 10 Fraction of Inspired Oxygen 0 0 0 09/06/24 17:20 09/06/24 17:30 09/06/24 17:30 Temperature 98.2 F 99 F 99 F Pulse Rate 105 H 106 H 106 H Pulse Rate [Pulse Oximeter] Respiratory Rate 16 14 14 Blood Pressure 113/86 102/39 L 102/39 L Blood Pressure [Right Calf] Pulse Oximetry 96 76 L 76 L Oxygen Delivery Method Aerosol Mask Room Air Room Air Oxygen Flow Rate 10 Fraction of Inspired Oxygen 0 09/06/24 17:45 09/06/24 18:00 09/06/24 18:15 Temperature 98.9 F Pulse Rate 104 H 105 H 111 H Pulse Rate [Pulse Oximeter] Respiratory Rate 16 16 16 Blood Pressure 120/47 L 137/73 119/43 L Blood Pressure [Right Calf] Pulse Oximetry 96 96 96 Oxygen Delivery Method OxyMask Nasal Cannula Nasal Cannula Oxygen Flow Rate 4 4 4 Fraction of Inspired Oxygen 09/06/24 18:30 09/06/24 19:00 09/06/24 19:30 Temperature 98.3 F Pulse Rate 104 H 104 H 103 H Pulse Rate [Pulse Oximeter] Respiratory Rate 16 16 16 Blood Pressure 142/61 H 123/54 L 124/64 Blood Pressure [Right Calf] Pulse Oximetry 94 94 98 Oxygen Delivery Method Nasal Cannula Nasal Cannula Nasal Cannula Oxygen Flow Rate 2 2 2 Fraction of Inspired Oxygen 09/06/24 20:20 09/06/24 20:20 09/06/24 20:30 Temperature 98 F Pulse Rate 109 H Pulse Rate [Pulse Oximeter] Respiratory Rate 16 Blood Pressure 82/53 L 112/96 H Blood Pressure [Right Calf] Pulse Oximetry 89 97 Oxygen Delivery Method Room Air Nasal Cannula Oxygen Flow Rate 1 Fraction of Inspired Oxygen 09/06/24 21:00 09/06/24 21:10 09/06/24 21:20 Temperature Pulse Rate Pulse Rate [Pulse Oximeter] Respiratory Rate Blood Pressure 91/42 L 107/59 L Blood Pressure [Right Calf] Pulse Oximetry 68 L Oxygen Delivery Method Room Air Oxygen Flow Rate Fraction of Inspired Oxygen 09/06/24 21:30 09/06/24 22:29 09/06/24 22:46 Temperature 98.5 F Pulse Rate 99 101 H Pulse Rate [Pulse Oximeter] Respiratory Rate 16 16 Blood Pressure 103/48 L 96/58 L Blood Pressure [Right Calf] Pulse Oximetry 99 96 95 Oxygen Delivery Method Nasal Cannula Nasal Cannula Nasal Cannula Oxygen Flow Rate 2 1 0.5 Fraction of Inspired Oxygen 09/06/24 23:00 09/06/24 23:00 09/06/24 23:36 Temperature Pulse Rate 106 H Pulse Rate [Pulse Oximeter] Respiratory Rate 16 16 Blood Pressure 106/51 L Blood Pressure [Right Calf] Pulse Oximetry 94 94 94 Oxygen Delivery Method Nasal Cannula Nasal Cannula Oxygen Flow Rate 1 0.5 Fraction of Inspired Oxygen 0 09/07/24 02:22 09/07/24 08:51 Temperature 98.6 F Pulse Rate Pulse Rate [Pulse Oximeter] 61 Respiratory Rate 16 Blood Pressure Blood Pressure [Right Calf] 104/53 L Pulse Oximetry 96 96 Oxygen Delivery Method Nasal Cannula Oxygen Flow Rate 1 Fraction of Inspired Oxygen 0 Assessment and Plan Assessment and plan (1) Postoperative wound dehiscence: Problem details: -S/P Left knee incision and drainage of deep abscess/deep TKA infection & debridement. Left knee antibiotic bead was placed for local elution of antibiotics. -Weight bear as tolerated operative extremity in knee immobilizer. Knee immobilizer should be worn at all times. -orthopedic started wide spectrum IV antibiotics: Vancomycin and Zosyn and they anticipate need for PICC line and long-term IV antibiotic use and eventually transition oral antibiotics in addition to anticipating the need for infectious disease consultation once sensitivities return. -wound culture pending from her left knee. -orthopedics expect return to the operating room on the 09/11/2024. -pain management Status: Acute (2) Postoperative wound infection: Problem details: -As above Status: Suspected (3) Osteoarthritis of left knee: Problem details: -s/p L TKA, Dr. Su 08/14/2024 Status: Acute (4) Seizure disorder: Problem details: -well controlled, last seizure was in May 2022. -Continue lamotrigine, and lacosamide. -seizure precautions Status: Acute (5) Type I diabetes mellitus: Problem details: -patient does not have her home insulin pump on her. -will start her on Accu-Cheks and low-dose insulin sliding scale. -might start her on insulin glargine if her Accu-Cheks are consistently above 200. Status: Acute (6) Hypertension: Problem details: -Soft BP postoperatively, hold home medications Status: Acute (7) Dyslipidemia: Status: Acute Plan - Continue IV vancomycin and Zosyn until cultures have returned with sensitivities - PT/OT consult for education and assistance - may weight bear as tolerated with knee immobilizer in place - Social work consult for discharge planning - discharge will be after 09/11/2024 - Prescribed analgesics as needed - DVT prophylaxis: 81 mg aspirin by mouth twice daily, walking, and SCDs. - Encourage incentive spirometer - Anticipation is for discharge to home with family/friends today 09/12/2024
--- NOTE | 2024-09-07 09:36 | PM.IMPN1 ---
Progress Note: A&P Assessment and plan (1) Postoperative wound dehiscence: Problem details: -S/P LTKA 08/14/24, s/p Left knee incision and drainage of deep abscess/deep TKA infection & debridement 09/06/24. Left knee antibiotic bead was placed for local elution of antibiotics. -Weight bear as tolerated operative extremity in knee immobilizer. Knee immobilizer should be worn at all times. -Intraoperative gram stain: G+ cocci; wound culture pending. -orthopedic started wide spectrum IV antibiotics: Vancomycin and Zosyn and they anticipate need for PICC line and long-term IV antibiotic use and eventually transition oral antibiotics in addition to anticipating the need for infectious disease consultation once sensitivities return. -orthopedics expect return to the operating room on the 09/11/2024. -pain management adequate, continue current regimen. Status: Acute (2) Postoperative wound infection: Problem details: -As above Status: Suspected (3) History of arthroplasty of left knee: Problem details: 3 weeks postop left total knee arthroplasty - subvastus (Dr. Renner, 08/14/2024) Status: Chronic (4) Constipation: Problem details: - Likely secondary to opioid use for recent surgery and infection. - Start scheduled Senna S - Miralax daily until BM Status: Acute (5) Type I diabetes mellitus: Problem details: -patient does not have her home insulin pump on her. - BGs 200-300s. - Currently on daily lantus 20 units (got a dose last evening and another this morning) - Continue Accu-Cheks ACHS, increase to medium-dose insulin sliding scale. Status: Acute (6) Seizure disorder: Problem details: -well controlled, last seizure was in May 2022. -Continue lamotrigine, and lacosamide. -seizure precautions Status: Chronic (7) Hypertension: Problem details: -Soft BP, continue to hold home medications Status: Chronic (8) Acute renal failure: Problem details: - 08/15/24 Cr 0.6, 09/06/24 Cr 1.7, 09/07 Cr 1.5 - BUN elevated at 50. Suspect prerenal, hypovolemic (MM slightly dry, elevated gluc, type 1 DM) - Increase IVF to 125cc/hr - Recheck in am Status: Acute Plan - VTE prophylaxis: high risk as inpatient, recent surgery, type I DM, knee immobilizer. Continue foot SCDs. Will switch to low dose BID lovenox. I spoke with ortho PA, David, about this plan. Time Spent With Patient Total time spent: Today I spent 35 minutes rounding on the patient. Greater than 50% included discussing care with the team, ortho PA, reviewing data, updating and managing the care plan. Subjective Time Seen by Provider: 09:27 Date Seen: 09/07/24 Interval history: Jennifer says she feels about the same as yesterday. Low energy. Hasn't had a BM since Mon or . Exam Narrative: Exam Narrative: General: No acute distress. Tired. Awake, sleepy, oriented x3. No pallor. No jaundice. Oropharynx: Clear. Mucous membranes slightly dry. Cardiovascular: Regular rate and rhythm. No murmurs, gallops, or rubs. Respiratory: Clear to auscultation bilaterally. No wheezes or crackles. Abdomen: Bowel sounds present. Soft, nondistended, nontender. Extremities: LLE in knee immobilizer. Const: Vital Signs, click to edit/add: Vital Signs - 24 hr 09/06/24 13:13 09/06/24 16:19 09/06/24 16:25 Temperature 97.4 F L 97.9 F Pulse Rate 110 H 103 H 101 H Pulse Rate [Pulse Oximeter] Respiratory Rate 18 17 18 Blood Pressure 142/54 H 134/58 L 138/64 Blood Pressure [Ri ght Calf] Pulse Oximetry 94 100 100 Oxygen Delivery Me thod Room Air Aerosol Mask Aerosol Mask Oxygen Flow Rate 10 10 Fraction of Inspir ed Oxygen 09/06/24 16:30 09/06/24 16:35 09/06/24 16:40 Temperature Pulse Rate 99 99 105 H Pulse Rate [Pulse Oximeter] Respiratory Rate 18 16 16 Blood Pressure 139/75 153/68 H 135/71 Blood Pressure [Ri ght Calf] Pulse Oximetry 99 99 99 Oxygen Delivery Me thod Aerosol Mask Aerosol Mask Aerosol Mask Oxygen Flow Rate 10 10 Fraction of Inspir ed Oxygen 10 09/06/24 16:45 09/06/24 16:50 09/06/24 16:55 Temperature 98.2 F Pulse Rate 104 H 106 H 111 H Pulse Rate [Pulse Oximeter] Respiratory Rate 16 16 16 Blood Pressure 136/90 H 136/90 H Blood Pressure [Ri ght Calf] Pulse Oximetry 100 91 89 Oxygen Delivery Me thod Aerosol Mask Room Air Room Air Oxygen Flow Rate Fraction of Inspir ed Oxygen 10 0 0 09/06/24 17:01 09/06/24 17:05 09/06/24 17:08 Temperature Pulse Rate 106 H 106 H 106 H Pulse Rate [Pulse Oximeter] Respiratory Rate 16 16 16 Blood Pressure 134/121 H 112/73 118/77 Blood Pressure [Ri ght Calf] Pulse Oximetry 96 96 96 Oxygen Delivery Me thod Aerosol Mask Aerosol Mask Aerosol Mask Oxygen Flow Rate 10 10 10 Fraction of Inspir ed Oxygen 0 0 0 09/06/24 17:20 09/06/24 17:30 09/06/24 17:30 Temperature 98.2 F 99 F 99 F Pulse Rate 105 H 106 H 106 H Pulse Rate [Pulse Oximeter] Respiratory Rate 16 14 14 Blood Pressure 113/86 102/39 L 102/39 L Blood Pressure [Ri ght Calf] Pulse Oximetry 96 76 L 76 L Oxygen Delivery Me thod Aerosol Mask Room Air Room Air Oxygen Flow Rate 10 Fraction of Inspir ed Oxygen 0 09/06/24 17:45 09/06/24 18:00 09/06/24 18:15 Temperature 98.9 F Pulse Rate 104 H 105 H 111 H Pulse Rate [Pulse Oximeter] Respiratory Rate 16 16 16 Blood Pressure 120/47 L 137/73 119/43 L Blood Pressure [Ri ght Calf] Pulse Oximetry 96 96 96 Oxygen Delivery Me thod OxyMask Nasal Cannula Nasal Cannula Oxygen Flow Rate 4 4 4 Fraction of Inspir ed Oxygen 09/06/24 18:30 09/06/24 19:00 09/06/24 19:30 Temperature 98.3 F Pulse Rate 104 H 104 H 103 H Pulse Rate [Pulse Oximeter] Respiratory Rate 16 16 16 Blood Pressure 142/61 H 123/54 L 124/64 Blood Pressure [Ri ght Calf] Pulse Oximetry 94 94 98 Oxygen Delivery Me thod Nasal Cannula Nasal Cannula Nasal Cannula Oxygen Flow Rate 2 2 2 Fraction of Inspir ed Oxygen 09/06/24 20:20 09/06/24 20:20 09/06/24 20:30 Temperature 98 F Pulse Rate 109 H Pulse Rate [Pulse Oximeter] Respiratory Rate 16 Blood Pressure 82/53 L 112/96 H Blood Pressure [Ri ght Calf] Pulse Oximetry 89 97 Oxygen Delivery Me thod Room Air Nasal Cannula Oxygen Flow Rate 1 Fraction of Inspir ed Oxygen 09/06/24 21:00 09/06/24 21:10 09/06/24 21:20 Temperature Pulse Rate Pulse Rate [Pulse Oximeter] Respiratory Rate Blood Pressure 91/42 L 107/59 L Blood Pressure [Ri ght Calf] Pulse Oximetry 68 L Oxygen Delivery Me thod Room Air Oxygen Flow Rate Fraction of Inspir ed Oxygen 09/06/24 21:30 09/06/24 22:29 09/06/24 22:46 Temperature 98.5 F Pulse Rate 99 101 H Pulse Rate [Pulse Oximeter] Respiratory Rate 16 16 Blood Pressure 103/48 L 96/58 L Blood Pressure [Ri ght Calf] Pulse Oximetry 99 96 95 Oxygen Delivery Me thod Nasal Cannula Nasal Cannula Nasal Cannula Oxygen Flow Rate 2 1 0.5 Fraction of Inspir ed Oxygen 09/06/24 23:00 09/06/24 23:00 09/06/24 23:36 Temperature Pulse Rate 106 H Pulse Rate [Pulse Oximeter] Respiratory Rate 16 16 Blood Pressure 106/51 L Blood Pressure [Ri ght Calf] Pulse Oximetry 94 94 94 Oxygen Delivery Me thod Nasal Cannula Nasal Cannula Oxygen Flow Rate 1 0.5 Fraction of Inspir ed Oxygen 0 09/07/24 02:22 09/07/24 08:51 Temperature 98.6 F Pulse Rate Pulse Rate [Pulse Oximeter] 61 Respiratory Rate 16 Blood Pressure Blood Pressure [Ri ght Calf] 104/53 L Pulse Oximetry 96 96 Oxygen Delivery Me thod Nasal Cannula Oxygen Flow Rate 1 Fraction of Inspir ed Oxygen 0 Labs Labs: Laboratory Results - last 24 hr 09/06/24 09/07/24 23:05 05:37 WBC 14.50 H RBC 3.41 L Hgb 9.9 L Hct 32.3 L MCV 95 MCH 29 MCHC 31 L RDW Coeff of Eliud 15.2 Plt Count 265 Neut % (Auto) 90.0 H Lymph % (Auto) 5.2 L [place] % (Auto) 4.3 Eos % (Auto) 0.2 Baso % (Auto) 0.1 Neut # (Auto) 13.10 H Lymph # (Auto) 0.80 L [place] # (Auto) 0.60 Eos # (Auto) 0.00 Baso # (Auto) 0.00 Abs Immat Gran (auto) 0.00 Imm/Tot Granulo (auto) 0.2 D-Dimer Quant (PE/DVT) 6.92 H VBG pH 7.290 L VBG pCO2 50 VBG pO2 40.6 VBG HCO3 24 Sodium 135 135 Potassium 5.0 4.9 Chloride 104 Carbon Dioxide 23 Anion Gap 8 BUN 50 H 50 H Creatinine 1.7 H 1.5 Estimated GFR 35 41 Glucose 298 H Calcium 8.3 L Total Bilirubin 0.4 AST 19 ALT 12 Alkaline Phosphatase 137 NT-Pro-B Natriuret Pep 2270 Total Protein 5.8 L Albumin 3.0 L
[2024-09-07] MEDS: LACTATED RINGERS 1000 ML 1,000 ML 125 ML IV (11:00)
[2024-09-07] MEDS: ENOXAPARIN 30 MG/0.3ML INJ SUBCUT (11:33)
--- NOTE | 2024-09-07 13:29 | CRLHL7_ITS ---
For Patients: As a result of the Century Cures Act, medical imaging exams and procedure reports are released immediately into your electronic medical record. You may view this report before your referring provider. If you have questions, please contact your health care provider. INDICATION: Wheezing TECHNIQUE: Chest radiograph 1 view COMPARISON: 09/06/2024 FINDINGS: The sensitivity and specificity of the exam are severely limited by the patient`s body habitus. Mediastinum: The mediastinum is normal in appearance. The heart silhouette is normal in size and morphology. Lung: Small lung volumes with mild pulmonary vascular congestion and bibasilar subsegmental atelectasis is noted without change. No sign of pleural effusion seen. No pneumothorax is identified. Bone and Soft tissue: Anterior and posterior spinal fusion of the cervical spine is partially seen. Posterior spinal fusion of the lumbar spine is partially seen. IMPRESSION: 1. Small lung volumes with mild pulmonary vascular congestion and bibasilar subsegmental atelectasis is noted without change. Dictated by Oren Mann MD @ 09/07/2024 2:45:54 PM Dictated by: Oren Mann MD @ 09/07/2024 14:45:56 (Electronically Signed)
--- NOTE | 2024-09-07 13:29 | RESP.RT ---
Pre-treatment, patient has inspiratory/expiratory wheeze, slight inspiratory grunt noted, end expiratory squeak. Albuterol given via small volume nebulizer, mouth piece, Oxygen flowmeter @ 6 Lpm. Patient tolerated well. Post treatment, patient BBS with more air movement noted, inspiratory/expiratory wheeze louder with more air movement. No inspiratory grunt, or end expiratory squeak noted. Patient us IS very well x8 keeping dial in middle of jen, 2000 on gauge..
--- NOTE | 2024-09-07 15:47 | PC.NURSE ---
End of Shift: Patient pleasant and cooperative, A&O. VSS, afebrile. SpO2 maintained above 90% on RA. Patient reported pain in her left knee this shift, managed with scheduled medication, see MAR. Knee immobilizer on this shift. A1 walker and gait belt. Tolerating regular diet.
--- NOTE | 2024-09-07 17:28 | PM.EN ---
Chart Event Note Chart Event Note: Patient refused DVT prophylaxis with Lovenox.
[2024-09-07] MEDS: ATORVASTATIN 10 MG TABLET PO (18:57)
[2024-09-07] MEDS: diphenhydrAMINE 50 MG/ML inj IVP (20:43)
[2024-09-07] MEDS: ROPINIROLE HCL 1 MG TABLET PO (20:43)
[2024-09-07] MEDS: NON-FORMULARY MEDICATION PO (20:51)
--- NOTE | 2024-09-07 23:38 | PC.NURSE ---
Patient alert and orientedx4. Continues to have wheezing however 02 sats remain stable in the 90s on room air. Patient did state that she is in the process of being evaluated for COPD. Incentive Spirometer use was encouraged. IS upto 1999 this shift. Also encouraged patient to ambulate out of the room. Patient currently ambulating to the bathroom with AX1 with walker and wheelchair. Patient refused her Lovenox this shift. Education provided as to why she was on it. Verbalized understanding of the education but still refused Lovenox. MD was notified who also talked to the patient regarding the medication. Patient reported that her immobilizer is causing rah on the right led. RN noted friction shear on patient's right leg from the brace.A meplex form had been applied to the area however it was loose. Patient was encouraged to call her sister to bring shorts in so that they shorts could provide extra protection which the patient was agreeable to doing. Patient called sister to bring in shorts to provide protection. Pain managed with scheduled tylenol.
[2024-09-08] VITALS (11 sets, daily range): BP systolic 145–177; BP diastolic 55–87; PULSE 67–104; RESP 17–22; TEMP 36.7–37.7; O2SAT 90–97
[2024-09-08] MEDS: ZOLPIDEM 5 MG TABLET PO ×2 (00:04→22:04)
[2024-09-08] MEDS: OXYCODONE 5 MG TABLET PO ×4 (00:04→22:04)
[2024-09-08] MEDS: PIPERACILLIN/TAZOBACTAM 3.375 GM in 0.9 % SODIUM CHLORIDE Mini-bag 100 ML IVPB ×2 (02:00→06:52)
[2024-09-08] MEDS: ACETAMINOPHEN 500 MG TABLET 1000 MG PO ×4 (03:00→20:15)
[2024-09-08] MEDS: ASPIRIN 81 MG TABLET EC PO ×2 (09:15→20:16)
[2024-09-08] MEDS: VANCOMYCIN 1.25 GM/250 ML 1.25 GM/250 ML PIGGYBACK IVPB (09:15)
[2024-09-08] MEDS: LACOSAMIDE 50 MG TABLET 100 MG PO ×2 (09:15→20:15)
[2024-09-08] MEDS: PREGABALIN 75 MG CAPSULE 150 MG PO ×2 (09:15→20:16)
[2024-09-08 09:45] LABS: Basophils Percent Auto 0.4 % (0.0-3.0); Hematocrit 31.6 % (33.0-51.0); Hemoglobin* 9.7 gm/dL (12.0-16.0); Immature Granulocytes Pct Auto 0.3 %; Lymphocytes Percent Auto 7.4 % (20-44); Mean Corpuscular HGB Conc 31 gm/dL (32-36); Mean Corpuscular Hemoglobin 29 pg (26-34); Mean Corpuscular Volume 94 fL (80-100); Monocytes Percent Auto 7.5 % (0.0-11.0); Neutrophils Percent Auto 76.4 % (42.0-72.0); Platelet Count* 227 K/uL (140-440); RDW Coefficient of Variation % 15.2 % (11.5-15.5); Red Blood Count 3.36 m/uL (4.00-5.20); White Blood Count* 11.02 K/uL (4.50-11.00)
[2024-09-08 09:47] LABS: Slide Review Reflex No
[2024-09-08] MEDS: INSULIN GLARGINE,HUM.REC.ANLOG 100 UNIT/ML INSULN.PEN 20 UNIT SUBCUT (09:48)
[2024-09-08 10:02] LABS: Chloride* 106 mmol/L (96-114); Potassium* 4.2 mmol/L (3.6-5.1); Sodium* 137 mmol/L (135-149)
[2024-09-08 10:05] LABS: Anion Gap 5 mEq/L (7-15); Blood Urea Nitrogen* 31 mg/dL (7-30); Carbon Dioxide* 26 mmol/L (20-32); Creatinine* 0.8 mg/dL (0.5-1.5); Estimated Glomerular Filt Rate 88 ml/min; Glucose* 143 mg/dL (60-115)
[2024-09-08 10:06] LABS: Calcium* 8.6 mg/dL (8.4-10.6)
[2024-09-08] MEDS: ALBUTEROL SULFATE 2.5 MG/3 ML VIAL.NEB NEB ×2 (10:37→15:39)
--- NOTE | 2024-09-08 11:42 | RESP.RT ---
Patient sitting up in bed, on NC 0.5 Lpm, SaO2 92%, with loose moist productive cough, swallowing secretions SaO2 increased to 97%. Good air movement BBS with inspiratory/expiratory wheeze and crackles. Clears with cough. Patient has good strong voice today.
[2024-09-08 13:43] LABS: Sodium* 138 mmol/L (135-149)
[2024-09-08] MEDS: CEFAZOLIN 2 GM in 0.9 % SODIUM CHLORIDE Mini-bag 100 ML IVPB ×2 (14:33→22:08)
--- NOTE | 2024-09-08 15:38 | PC.NURSE ---
End of Shift: Patient pleasant and cooperative, A&O. VSS, afebrile. SpO2 maintained above 90% on 0.5L O2. Towards the end of my shift, patients SpO2 was above 95% on 0.5L O2, so I took her off oxygen for the remainder of the shift and she has been sating above 90%. Patient reported feeling SOB this shift, gave PRN nebulizer, see MAR. Patient reports pain in her left leg this shift, managed with PRN medication, see MAR. Tolerating regular diet. 1A with walker and gait belt, knee immobilizer in place.
--- NOTE | 2024-09-08 15:59 | PM.IMPN1 ---
Progress Note: A&P Assessment and plan (1) Postoperative wound dehiscence: Problem details: -S/P LTKA 08/14/24, s/p Left knee incision and drainage of deep abscess/deep TKA infection & debridement 09/06/24. Left knee antibiotic bead was placed for local elution of antibiotics. -Weight bear as tolerated operative extremity in knee immobilizer. Knee immobilizer should be worn at all times. -orthopedics expect return to the operating room on the 09/11/2024. - 09/07: Intraoperative gram stain: G+ cocci; wound culture pending. Orthopedic started wide spectrum IV antibiotics: Vancomycin and Zosyn and they anticipate need for PICC line and long-term IV antibiotic use and eventually transition oral antibiotics in addition to anticipating the need for infectious disease consultation once sensitivities return. 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 Change antibiotic regimen to IV ancef 2 g q8h. 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 Pain management adequate, continue current regimen. Status: Acute (2) Postoperative wound infection: Problem details: -As above Status: Suspected (3) History of arthroplasty of left knee: Problem details: 3 weeks postop left total knee arthroplasty - subvastus (Dr. Renner, 08/14/2024) Status: Chronic (4) Constipation: Problem details: - Likely secondary to opioid use for recent surgery and infection. - Start scheduled Senna S - Miralax daily until BM Status: Acute (5) Type I diabetes mellitus: Problem details: - BGs 80-120s today. Close to goal. Decrease pm dose of LA insulin. Continue medium-dose insulin sliding scale ACHS. Status: Acute (6) Seizure disorder: Problem details: -well controlled, last seizure was in May 2022. -Continue lamotrigine, and lacosamide. -seizure precautions Status: Chronic (7) Hypertension: Problem details: -Soft BP, continue to hold home medications Status: Chronic (8) Acute renal failure: Problem details: - BUN elevated at 50. Suspect prerenal, hypovolemic (MM slightly dry, elevated gluc, type 1 DM) - 08/15/24 Cr 0.6, 09/06/24 Cr 1.7, 09/07 Cr 1.5, 09/08 Cr 0.8, resolved. - IVF stopped last night. Status: Resolved Plan - VTE prophylaxis: high risk as inpatient, recent surgery, type I DM, knee immobilizer. Continue foot SCDs. Recommended low dose BID lovenox. Patient declined. Will continue BID low dose Aspirin. Ambulate as able. - I spoke with David TELLO over the phone today about VTE prophylaxis and culture results/antibiotic regimen. Time Spent With Patient Total time spent: Today I spent 35 minutes rounding on the patient. Greater than 50% included discussing care with the team, ceci TELLO, reviewing data, updating and managing the care plan. Subjective Time Seen by Provider: 07:55 Date Seen: 09/08/24 Interval history: Jennifer feels achy all over today. She tells me she's felt that way since the day she had surgery. Jennifer called her sister, Tessa, on the phone and I spoke with both of them about my recommendations for using low-dose Lovenox for VTE prophylaxis in the setting of immobilization, infection, recent surgery, and type 1 diabetes mellitus putting her at a higher risk for VTE while she is hospitalized as an inpatient through at least Monday to get the antibiotic beads taken out. Jennifer's sister, Tessa, was very opposed to any use of Lovenox. I noted that it is ultimately Jennifer's decision and that regardless I would want her to ambulate as much as she is able. Jennifer and tessa wanted to talk about it, so I left the room. Exam Narrative: Exam Narrative: General: No acute distress. Awake, alert, oriented x3. No pallor. No jaundice. Oropharynx: Clear. Mucous membranes slightly dry. Cardiovascular: Regular rate and rhythm. No murmurs, gallops, or rubs. Respiratory: Clear to auscultation bilaterally. No wheezes or crackles. Abdomen: Bowel sounds present. Soft, nondistended, nontender. Extremities: LLE in knee immobilizer. Const: Vital Signs, click to edit/add: Vital Signs - 24 hr 09/07/24 16:03 09/07/24 16:30 09/07/24 16:30 Temperature 97.6 F Pulse Rate [Pulse Oximeter] 92 96 Respiratory Rate 20 Blood Pressure [Le ft Arm] Blood Pressure [Ri ght Calf] 119/50 L Pulse Oximetry 97 96 Oxygen Delivery Me thod Room Air Oxygen Flow Rate 09/07/24 16:30 09/07/24 19:48 09/07/24 23:00 Temperature 98.9 F Pulse Rate [Pulse Oximeter] 96 Respiratory Rate 20 Blood Pressure [Le ft Arm] Blood Pressure [Ri ght Calf] 129/49 L Pulse Oximetry 96 92 Oxygen Delivery Me thod Room Air Room Air Room Air Oxygen Flow Rate 09/07/24 23:00 09/07/24 23:00 09/08/24 03:00 Temperature 98.5 F 98.6 F Pulse Rate [Pulse Oximeter] 97 94 Respiratory Rate 21 17 Blood Pressure [Le ft Arm] 145/58 H 147/55 H Blood Pressure [Ri ght Calf] Pulse Oximetry 98 91 92 Oxygen Delivery Me thod Room Air Room Air Oxygen Flow Rate 09/08/24 07:00 09/08/24 08:00 09/08/24 10:18 Temperature 98.6 F Pulse Rate [Pulse Oximeter] 98 98 Respiratory Rate 20 20 Blood Pressure [Le ft Arm] Blood Pressure [Ri ght Calf] 147/74 H Pulse Oximetry 95 95 Oxygen Delivery Me thod Nasal Cannula Oxygen Flow Rate 0.5 09/08/24 10:31 09/08/24 11:29 09/08/24 11:49 Temperature 98.8 F Pulse Rate [Pulse Oximeter] 92 Respiratory Rate 20 22 18 Blood Pressure [Le ft Arm] 148/87 H Blood Pressure [Ri ght Calf] Pulse Oximetry 93 92 97 Oxygen Delivery Me thod Nasal Cannula Nasal Cannula Nasal Cannula Oxygen Flow Rate 0.5 0.5 0.5 09/08/24 14:58 Temperature Pulse Rate [Pulse Oximeter] Respiratory Rate Blood Pressure [Le ft Arm] Blood Pressure [Ri ght Calf] Pulse Oximetry 94 Oxygen Delivery Me thod Room Air Oxygen Flow Rate Labs Labs: Laboratory Results - last 24 hr 09/08/24 09/08/24 09:31 13:26 WBC 11.02 H RBC 3.36 L Hgb 9.7 L Hct 31.6 L MCV 94 MCH 29 MCHC 31 L RDW Coeff of Eliud 15.2 Plt Count 227 Neut % (Auto) 76.4 H Lymph % (Auto) 7.4 L [place] % (Auto) 7.5 Eos % (Auto) 8.0 H Baso % (Auto) 0.4 Neut # (Auto) 8.40 H Lymph # (Auto) 0.80 L [place] # (Auto) 0.80 Eos # (Auto) 0.90 H Baso # (Auto) 0.00 Abs Immat Gran (auto) 0.00 Imm/Tot Granulo (auto) 0.3 Sodium 137 138 Potassium 4.2 Chloride 106 Carbon Dioxide 26 Anion Gap 5 L BUN 31 H Creatinine 0.8 Estimated GFR 88 Glucose 143 H Calcium 8.6
[2024-09-08] MEDS: DULOXETINE HCL 20 MG CAPSULE DR 40 MG PO (17:51)
[2024-09-08] MEDS: ATORVASTATIN 10 MG TABLET PO (17:51)
[2024-09-08] MEDS: ROPINIROLE HCL 1 MG TABLET PO (20:15)
[2024-09-08] MEDS: NON-FORMULARY MEDICATION PO ×2 (20:17)
--- NOTE | 2024-09-08 20:35 | CRLHL7_ITS ---
For Patients: As a result of the Cures Act, medical imaging exams and procedure reports are released immediately into your electronic medical record. You may view this report before your referring provider. If you have questions, please contact your health care provider. INDICATION: Cough, chills. TECHNIQUE: Chest 2 views. COMPARISON: September 07, 2024. FINDINGS: Cardiovascular and mediastinum: Heart size and vasculature are normal in caliber and appearance. Lungs and pleural spaces: Patchy bibasilar airspace opacities. No sign of pleural effusion. No pneumothorax. Bones and soft tissues: No significant findings. IMPRESSION: Patchy bibasilar airspace opacities, possibly infectious/inflammatory in etiology. No large focal consolidations. Dictated by Mj Hill MD @ 09/08/2024 10:11:58 PM (Electronically Signed)
[2024-09-08] MEDS: ONDANSETRON 2 MG/ML inj 4 MG IVP (21:07)
--- NOTE | 2024-09-08 22:26 | PC.NURSE ---
SHIFT NOTE 15-23: Pt A&O. Up 1 assist with a walker, tolerating well, took a walk in the [place] this evening. Around 1999, pt had the chills, temp 99.9, updated MD- gave scheduled Tylenol, pt went down for a 2V chest x-ray and triple swab sent to lab. Pt given PRN Oxycodone for pain and reports relief. At HS, blood sugar on patient's Dexcom was 145, checked on the [facility] blood sugar monitor and the reading was 110, updated MD, held the patient's insulin this HS per MD. On 1L O2 PNC to keep sats above 90%. PRN Zofran given x1 for nausea, no emesis, pt reported relief.
[2024-09-08 22:32] LABS: PCR FLU A Negative PCR FLU A (Negative); PCR FLU B Negative PCR FLU B (Negative); PCR RSV Negative PCR RSV (Negative); SARS PCR* Negative SARS-CoV-2 (Negative)
[2024-09-09] VITALS (15 sets, daily range): BP systolic 129–166; BP diastolic 54–89; PULSE 94–164; RESP 16–18; TEMP 36.6–37.3; O2SAT 94–99
[2024-09-09] MEDS: OXYCODONE 5 MG TABLET PO ×2 (01:48→20:11)
[2024-09-09] MEDS: ACETAMINOPHEN 500 MG TABLET 1000 MG PO ×4 (01:49→20:10)
--- NOTE | 2024-09-09 05:04 | PC.NURSE ---
Pt spent night sleeping in chair with knee immobilized. Anxious at 2300.PT did settle down and sleep after sometime talking with RN. Pain controlled with Meds.
[2024-09-09 06:52] LABS: Basophils Absolute Auto 0.03 K/uL (0.00-0.30); Basophils Percent Auto 0.3 % (0.0-3.0); Eosinophils Absolute Auto 0.56 K/uL (0.00-0.50); Eosinophils Percent Auto 6.4 % (0.0-7.0); Hematocrit 49.6 % (33.0-51.0); Hemoglobin* 15.3 gm/dL (12.0-16.0); Immature Granulocytes Abs Auto 0.05 K/uL (0.00-0.30); Immature Granulocytes Pct Auto 0.6 %; Lymphocytes Percent Auto 15.4 % (20-44); Mean Corpuscular HGB Conc 31 gm/dL (32-36); Mean Corpuscular Hemoglobin 29 pg (26-34); Mean Corpuscular Volume 93 fL (80-100); Monocytes Percent Auto 6.7 % (0.0-11.0); Neutrophils Absolute Auto 6.15 K/uL (1.7-7.0); Neutrophils Percent Auto 70.6 % (42.0-72.0); Platelet Count* 175 K/uL (140-440); RDW Coefficient of Variation % 15.4 % (11.5-15.5); Red Blood Count 5.32 m/uL (4.00-5.20); White Blood Count* 8.71 K/uL (4.50-11.00)
[2024-09-09] MEDS: CEFAZOLIN 2 GM in 0.9 % SODIUM CHLORIDE Mini-bag 100 ML IVPB ×2 (06:52→17:18)
[2024-09-09 06:56] LABS: Chloride* 109 mmol/L (96-114); Potassium* 4.5 mmol/L (3.6-5.1); Sodium* 140 mmol/L (135-149)
[2024-09-09 06:58] LABS: Slide Review Reflex No
[2024-09-09 06:59] LABS: Anion Gap 9 mEq/L (7-15); Blood Urea Nitrogen* 16 mg/dL (7-30); Carbon Dioxide* 22 mmol/L (20-32); Creatinine* 0.6 mg/dL (0.5-1.5); Estimated Glomerular Filt Rate 107 ml/min
[2024-09-09 07:00] LABS: Calcium* 9.5 mg/dL (8.4-10.6); Glucose* 103 mg/dL (60-115)
--- NOTE | 2024-09-09 08:26 | PM.ORPN ---
Subjective Subjective Date Seen: 09/09/24 Principal diagnosis: POD 3 left TKA I&D Interval history: Patient reports doing okay. No acute events over night. Pain managed with scheduled and PRN medications, ice. DVT prophylaxis: 81 mg aspirin by mouth twice daily. (Patient refused Lovenox), SCDs, walking. Remains in knee immobilizer for ambulation. Denies fevers, chills, aches, N/V, CP, SOB/FLORES, or lightheadedness. Reports worsening wheezing since last 09/05/2024; otherwise a chronic wheeze. Hospitalist staff has a concern for possible pneumonia developing. Ortho Exam Narrative Exam Narrative: LLE: Knee immobilizer remains in place. No obvious drainage. No significant swelling. No calf pain with squeeze bilaterally. 2+ DP/PT pulses, pink warm digits with brisk cap refill; intact dermatomes and myotomes distally including the common peroneal, tibial, saphenous, and sural nerve distributions Const Vital Signs, click to edit/add: Vital Signs - 24 hr 09/08/24 10:18 09/08/24 10:31 09/08/24 11:29 Temperature Pulse Rate [Pulse Oximeter] Respiratory Rate 20 22 Blood Pressure [Left Arm] Blood Pressure [Right Calf] Pulse Oximetry 95 93 92 Oxygen Delivery Method Nasal Cannula Nasal Cannula Oxygen Flow Rate 0.5 0.5 Fraction of Inspired Oxygen 09/08/24 11:49 09/08/24 14:58 09/08/24 15:00 Temperature 98.8 F Pulse Rate [Pulse Oximeter] 92 Respiratory Rate 18 Blood Pressure [Left Arm] 148/87 H Blood Pressure [Right Calf] Pulse Oximetry 97 94 95 Oxygen Delivery Method Nasal Cannula Room Air Oxygen Flow Rate 0.5 Fraction of Inspired Oxygen 09/08/24 15:00 09/08/24 15:00 09/08/24 15:00 Temperature 98.1 F Pulse Rate [Pulse Oximeter] 67 Respiratory Rate 18 18 18 Blood Pressure [Left Arm] Blood Pressure [Right Calf] 165/68 H Pulse Oximetry 95 95 Oxygen Delivery Method Room Air Room Air Oxygen Flow Rate Fraction of Inspired Oxygen 0 0 09/08/24 20:00 09/08/24 23:28 09/09/24 00:27 Temperature 99.9 F H 98.7 F Pulse Rate [Pulse Oximeter] 100 104 H Respiratory Rate 18 18 Blood Pressure [Left Arm] 145/55 H Blood Pressure [Right Calf] 177/66 H Pulse Oximetry 90 94 94 Oxygen Delivery Method Room Air Room Air Oxygen Flow Rate Fraction of Inspired Oxygen 0 09/09/24 00:28 09/09/24 00:28 09/09/24 01:49 Temperature 98.7 F Pulse Rate [Pulse Oximeter] 104 H Respiratory Rate 18 18 Blood Pressure [Left Arm] Blood Pressure [Right Calf] Pulse Oximetry 94 Oxygen Delivery Method Room Air Oxygen Flow Rate 0.5 Fraction of Inspired Oxygen 0 09/09/24 01:53 Temperature 98.7 F Pulse Rate [Pulse Oximeter] 99 Respiratory Rate 18 Blood Pressure [Left Arm] 143/54 H Blood Pressure [Right Calf] Pulse Oximetry 94 Oxygen Delivery Method Room Air Oxygen Flow Rate Fraction of Inspired Oxygen Assessment and Plan Assessment and plan (1) Postoperative wound dehiscence: Problem details: -S/P LTKA 08/14/24, s/p Left knee incision and drainage of deep abscess/deep TKA infection & debridement 09/06/24. Left knee antibiotic bead was placed for local elution of antibiotics. -Weight bear as tolerated operative extremity in knee immobilizer. Knee immobilizer should be worn at all times. -orthopedics expect return to the operating room on the 09/11/2024. - 09/07: Intraoperative gram stain: G+ cocci; wound culture pending. Orthopedic started wide spectrum IV antibiotics: Vancomycin and Zosyn and they anticipate need for PICC line and long-term IV antibiotic use and eventually transition oral antibiotics in addition to anticipating the need for infectious disease consultation once sensitivities return. 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 Change antibiotic regimen to IV ancef 2 g q8h. ID agrees with plan to have patient on IV Ancef every 8 hours for 6 weeks. PICC line likely tomorrow. Pain management adequate, continue current regimen. Status: Acute (2) Postoperative wound infection: Problem details: -As above Status: Suspected (3) History of arthroplasty of left knee: Problem details: 3 weeks postop left total knee arthroplasty - subvastus (Dr. Renner, 08/14/2024) Status: Chronic (4) Constipation: Problem details: - Likely secondary to opioid use for recent surgery and infection. - Start scheduled Senna S - Miralax daily until BM Status: Acute (5) Type I diabetes mellitus: Problem details: - BGs 80-120s today. Close to goal. Decrease pm dose of LA insulin. Continue medium-dose insulin sliding scale ACHS. Status: Acute (6) Seizure disorder: Problem details: -well controlled, last seizure was in May 2022. -Continue lamotrigine, and lacosamide. -seizure precautions Status: Chronic (7) Hypertension: Problem details: -Soft BP, continue to hold home medications Status: Chronic (8) Acute renal failure: Problem details: - BUN elevated at 50. Suspect prerenal, hypovolemic (MM slightly dry, elevated gluc, type 1 DM) - 08/15/24 Cr 0.6, 09/06/24 Cr 1.7, 09/07 Cr 1.5, 09/08 Cr 0.8, resolved. - IVF stopped last night. Status: Resolved Plan - Continue IV abx, ancef Q8Hrs (x6 weeks); PICC tomorrow 09/10/24. - PT/OT consult for education and assistance - patient encouraged to ambulate within the knee immobilizer in place - Strongly encouraged continue incentive spirometer multiple times an hour. - Social work consult for discharge planning - discharge to likely 09/12/2024; Consider SNF - Prescribed analgesics as needed - DVT prophylaxis: 81 mg aspirin by mouth twice daily, walking, and SCDs. Recommendation is Lovenox, patient refuses to take this DVT prophylaxis medication. - Return to OR on 09/11/24.
[2024-09-09] MEDS: LACOSAMIDE 50 MG TABLET 100 MG PO ×2 (08:40→20:13)
[2024-09-09] MEDS: ASPIRIN 81 MG TABLET EC PO ×2 (08:41→20:14)
[2024-09-09] MEDS: PREGABALIN 75 MG CAPSULE 150 MG PO ×2 (08:43→20:12)
[2024-09-09] MEDS: INSULIN GLARGINE,HUM.REC.ANLOG 100 UNIT/ML INSULN.PEN 20 UNIT SUBCUT (08:44)
--- NOTE | 2024-09-09 10:22 | NUTR.NU ---
RDN with diet education related to diet order. Patient admitted for postop wound dehiscence with infection s/p left TKA 08/19/24. Past medical history includes but not limited to type 1 diabetes mellitus. No current weight or height to assess. Current diet is diabetic. Meal intakes since admit have been adequate at 50%+. RDN visited with patient whom reports her appetite is lower than normal, suspect due to infection. RDN offered diet education related to diabetic diet, however patient declined at this time. Patient reports she understands how to carbohydrate count, however does not do this currently. RDN encouraged patient to let staff know if she has any questions or concerns. RDN will continue to monitor and follow-up prn.
--- NOTE | 2024-09-09 15:28 | CRLHL7_ITS ---
For Patients: As a result of the Century Cures Act, medical imaging exams and procedure reports are released immediately into your electronic medical record. You may view this report before your referring provider. If you have questions, please contact your health care provider. INDICATION: PICC line placement TECHNIQUE: Chest radiograph 1 view on 2 films COMPARISON: 09/08/2024 FINDINGS: The sensitivity and specificity of the exam are severely limited by the patient`s body habitus. Mediastinum: The mediastinum is normal in appearance. The cardiac silhouette is at upper limits of normal in size. Right PICC line is present with tip coursing cephalad into the right neck and not included. On subsequent radiograph, the PICC line has been repositioned with the tip near the cavoatrial junction. Lung: Both lungs are unremarkable in appearance. No sign of pleural effusion seen. No pneumothorax is identified. Bone and Soft tissue: Anterior and posterior spinal fusion of the cervical spine is partially seen. IMPRESSION: 1. Right PICC line is present with tip coursing cephalad into the right neck and not included. On subsequent radiograph, the PICC line has been repositioned with the tip near the cavoatrial junction. Dictated by Oren Mann MD @ 09/09/2024 7:05:08 PM Dictated by: Oren Mann MD @ 09/09/2024 19:05:11 (Electronically Signed)
--- NOTE | 2024-09-09 16:47 | PC.SOCIAL ---
Discharge planning: Met with pt regarding d/c plan. Pt is requesting a halfway facility rehab stay at discharge. She is most interested in placement at [facility], [facility] or [facility] and does not want to go further from [facility] than [place]. station worker to follow up as needed.
--- NOTE | 2024-09-09 17:01 | P.IMPN_ITS ---
Progress Note: A&P Assessment and plan (1) Postoperative wound dehiscence: Problem details: -S/P LTKA 08/14/24, s/p Left knee incision and drainage of deep abscess/deep TKA infection & debridement 09/06/24. Left knee antibiotic bead was placed for local elution of antibiotics. -Weight bear as tolerated operative extremity in knee immobilizer. Knee immobilizer should be worn at all times. -orthopedics expect return to the operating room on the 09/11/2024. - 09/07: Intraoperative gram stain: G+ cocci; wound culture pending. Orthopedic started wide spectrum IV antibiotics: Vancomycin and Zosyn and they anticipate need for PICC line and long-term IV antibiotic use and eventually transition oral antibiotics in addition to anticipating the need for infectious disease consultation once sensitivities return. 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 Change antibiotic regimen to IV ancef 2 g q8h. ID agrees with plan to have patient on IV Ancef every 8 hours for 6 weeks. PICC line likely tomorrow. Pain management adequate, continue current regimen. - 09/09: I spoke with Dr. Padmini Wallace from Infectious Disease at [place] regarding antibiotic choice and length for treatment of postoperative wound infection of a total knee arthroplasty. She agreed with Ancef as the antibiotic of choice and recommended 6 week course. She recommended placing a PICC line at this time. I also spoke with her about the patchy infiltrates and or coarse lung sounds, noting that her white count is within normal limits and she did not have any fevers. She recommended I diuresis and see how she does overnight before starting other antibiotics to cover for possible pneumonia, especially since she has been on Zosyn and vancomycin through the weekend, which would make pneumonia less likely. Status: Acute (2) Postoperative wound infection: Problem details: -As above Status: Suspected (3) History of arthroplasty of left knee: Problem details: 3 weeks postop left total knee arthroplasty - subvastus (Dr. Renner, 08/14/2024) Status: Chronic (4) Constipation: Problem details: - Likely secondary to opioid use for recent surgery and infection. - Start scheduled Senna S - Miralax as needed Status: Acute (5) Type I diabetes mellitus: Problem details: - BGs 80-140s today. Close to goal. Patient would like to transition to her pump, which I think is a good plan for today. Will give that a try, had a have stopped long-acting insulin and insulin sliding scale, continue Accu-Cheks. Status: Acute (6) Seizure disorder: Problem details: -well controlled, last seizure was in May 2022. -Continue lamotrigine, and lacosamide. -seizure precautions Status: Chronic (7) Hypertension: Problem details: -hypertensive today, restart home blood pressure medications Status: Chronic (8) Acute renal failure: Problem details: - BUN elevated at 50. Suspect prerenal, hypovolemic (MM slightly dry, elevated gluc, type 1 DM) - 08/15/24 Cr 0.6, 09/06/24 Cr 1.7, 09/07 Cr 1.5, 09/08 Cr 0.8, resolved. - IVF stopped 09/07. - possible volume overload, give a dose of Lasix, monitor creatinine Status: Resolved Plan - VTE prophylaxis: high risk as inpatient, recent surgery, type I DM, knee immobilizer. Continue foot SCDs. Recommended low dose BID lovenox. Patient declined. Continue BID low dose Aspirin. Ambulate as able. - I spoke with David TELLO today to update and coordinate care; I also spoke with Dr. Wallace from Infectious Disease at [place]. Time Spent With Patient Total time spent: Today I spent 35 minutes rounding on the patient. Greater than 50% included discussing care with Infectious Disease, the team, reviewing data, updating and managing the care plan. Subjective Time Seen by Provider: 08:11 Date Seen: 09/09/24 Interval history: Jennifer tells me she had some total body aches today, but no specific pain, chills or rigors. She endorses feeling weak. Exam Narrative: Exam Narrative: General: No acute distress. Awake, alert, oriented x3. No pallor. No jaundice. Oropharynx: Clear. Mucous membranes moist. Cardiovascular: Regular rate and rhythm. No murmurs, gallops, or rubs. Respiratory: Coarse, scattered expiratory wheezes. No crackles. Abdomen: Bowel sounds present. Soft, nondistended, nontender. Extremities: LLE in knee immobilizer. Const: Vital Signs, click to edit/add: Vital Signs - 24 hr 09/08/24 20:00 09/08/24 23:28 09/09/24 00:27 Temperature 99.9 F H 98.7 F Pulse Rate [Pulse Oximeter] 100 104 H Respiratory Rate 18 18 Blood Pressure [Le ft Arm] 145/55 H Blood Pressure [Ri ght Calf] 177/66 H Pulse Oximetry 90 94 94 Oxygen Delivery Me thod Room Air Room Air Oxygen Flow Rate Fraction of Inspir ed Oxygen 0 09/09/24 00:28 09/09/24 00:28 09/09/24 01:49 Temperature 98.7 F Pulse Rate [Pulse Oximeter] 104 H Respiratory Rate 18 18 Blood Pressure [Le ft Arm] Blood Pressure [Ri ght Calf] Pulse Oximetry 94 Oxygen Delivery Me thod Room Air Oxygen Flow Rate 0.5 Fraction of Inspir ed Oxygen 0 09/09/24 01:53 09/09/24 07:00 09/09/24 07:00 Temperature 98.7 F Pulse Rate [Pulse Oximeter] 99 Respiratory Rate 18 Blood Pressure [Le ft Arm] 143/54 H Blood Pressure [Ri ght Calf] Pulse Oximetry 94 97 97 Oxygen Delivery Me thod Room Air Room Air Oxygen Flow Rate Fraction of Inspir ed Oxygen 09/09/24 07:00 09/09/24 11:00 Temperature 98.5 F 98.6 F Pulse Rate [Pulse Oximeter] 97 95 Respiratory Rate 18 18 Blood Pressure [Le ft Arm] 162/71 H 162/72 H Blood Pressure [Ri ght Calf] Pulse Oximetry 97 97 Oxygen Delivery Me thod Room Air Room Air Oxygen Flow Rate 2 Fraction of Inspir ed Oxygen Labs Labs: Laboratory Results - last 24 hr 09/08/24 09/09/24 21:45 06:07 WBC 8.71 RBC 5.32 H Hgb 15.3 Hct 49.6 MCV 93 MCH 29 MCHC 31 L RDW Coeff of Eliud 15.4 Plt Count 175 Neut % (Auto) 70.6 Lymph % (Auto) 15.4 L [place] % (Auto) 6.7 Eos % (Auto) 6.4 Baso % (Auto) 0.3 Neut # (Auto) 6.15 Lymph # (Auto) 1.30 [place] # (Auto) 0.60 Eos # (Auto) 0.56 H Baso # (Auto) 0.03 Abs Immat Gran (auto) 0.05 Imm/Tot Granulo (auto) 0.6 Sodium 140 Potassium 4.5 Chloride 109 Carbon Dioxide 22 Anion Gap 9 BUN 16 Creatinine 0.6 Estimated GFR 107 Glucose 103 Calcium 9.5 SARS-CoV-2 (PCR) Negative SARS-CoV-2 Influenza Type A (PCR) Negative PCR FLU A Influenza Type B (PCR) Negative PCR FLU B RSV (PCR) Negative PCR RSV Ordering Physician: Eve Conn M.D. Date of Service: 09/08/24 Procedure(s): XR chest 2V Accession Number(s): [id number] cc: Eve Conn M.D.; David Parisi M.D.~ For Patients: As a result of the Cures Act, medical imaging exams and procedure reports are released immediately into your electronic medical record. You may view this report before your referring provider. If you have questions, please contact your health care provider. INDICATION: Cough, chills. TECHNIQUE: Chest 2 views. COMPARISON: September 07, 2024. FINDINGS: Cardiovascular and mediastinum: Heart size and vasculature are normal in caliber and appearance. Lungs and pleural spaces: Patchy bibasilar airspace opacities. No sign of pleural effusion. No pneumothorax. Bones and soft tissues: No significant findings. IMPRESSION: Patchy bibasilar airspace opacities, possibly infectious/inflammatory in etiology. No large focal consolidations. Dictated by Mj Hill MD @ 09/08/2024 10:11:58 PM (Electronically Signed)
[2024-09-09] MEDS: FUROSEMIDE 10 MG/ML inj 20 MG IVP (17:16)
[2024-09-09] MEDS: INSULIN PUMP (PT OWN) 1 EACH SUBCUT (17:25)
[2024-09-09] MEDS: BENZOCAINE/MENTHOL 1 EACH LOZENGE MUCOUS MEM (17:41)
[2024-09-09] MEDS: ATORVASTATIN 10 MG TABLET PO (18:29)
[2024-09-09] MEDS: DULOXETINE HCL 20 MG CAPSULE DR 40 MG PO (18:29)
[2024-09-09] MEDS: ALBUTEROL SULFATE 2.5 MG/3 ML VIAL.NEB NEB (18:30)
--- NOTE | 2024-09-09 19:24 | PC.NURSE ---
End of shift: Pt AxOx4. Pt denies CP/SOB/dizziness/headache. Pt reported slight pain that was tolerable throughout the shift to the L knee. Charm Filter Operator Helper utilized reposition. Knee immobilizer in place, CMS intact. A1 GB W. Continent of the bladder and bowel. IV SL. PICC line put in place. RT saw Pt today. Pt was on 1-2L during the shift, tends to desat while asleep. Pt makes needs known. Tolerating fluids/diet well. Pt placed own insulin pump today (dexcom G6). Active ice applied. Pt appears resting with call light in reach.
[2024-09-09] MEDS: ZOLPIDEM 5 MG TABLET PO (20:12)
[2024-09-09] MEDS: ROPINIROLE HCL 1 MG TABLET PO (20:14)
[2024-09-09] MEDS: NON-FORMULARY MEDICATION PO (20:14)
[2024-09-09] MEDS: METOPROLOL TARTRATE 1 MG/ML inj 5 MG IVP (21:16)
--- NOTE | 2024-09-09 21:34 | PM.EN ---
Chart Event Note Chart Event Note: On 09/09 at 20:48 pm Patient had an episode of ventricular tachycardia, asymptomatic that lasted about 5 minutes, rate 160s. Ordered beta jordan and was about to order amiodarone but she converted to sinus rhythm.
[2024-09-10] VITALS (17 sets, daily range): BP systolic 139–167; BP diastolic 52–70; PULSE 88–101; RESP 18–20; TEMP 36.6–37.1; O2SAT 90–98
[2024-09-10] MEDS: CEFAZOLIN 2 GM in 0.9 % SODIUM CHLORIDE Mini-bag 100 ML IVPB ×3 (01:30→17:20)
[2024-09-10] MEDS: ACETAMINOPHEN 500 MG TABLET 1000 MG PO ×4 (02:03→19:46)
[2024-09-10] MEDS: OXYCODONE 5 MG TABLET PO ×4 (02:03→21:27)
--- NOTE | 2024-09-10 05:21 | PC.NURSE ---
Pt much more comfortable staying in chair at night. On 1.5L NC overnight. Pain controlled. Up A1 voiding and had BM. Picc placed yesterday.
[2024-09-10 06:15] LABS: Basophils Absolute Auto 0.03 K/uL (0.00-0.30); Basophils Percent Auto 0.3 % (0.0-3.0); Eosinophils Absolute Auto 0.52 K/uL (0.00-0.50); Eosinophils Percent Auto 4.8 % (0.0-7.0); Hemoglobin* 8.5 gm/dL (12.0-16.0); Immature Granulocytes Abs Auto 0.29 K/uL (0.00-0.30); Immature Granulocytes Pct Auto 2.7 %; Mean Corpuscular HGB Conc 30 gm/dL (32-36); Mean Corpuscular Hemoglobin 28 pg (26-34); Mean Corpuscular Volume 94 fL (80-100); Monocytes Percent Auto 7.4 % (0.0-11.0); Neutrophils Percent Auto 73.8 % (42.0-72.0); Platelet Count* 243 K/uL (140-440); RDW Coefficient of Variation % 15.2 % (11.5-15.5); Red Blood Count 2.99 m/uL (4.00-5.20); White Blood Count* 10.88 K/uL (4.50-11.00)
[2024-09-10 06:18] LABS: Slide Review Reflex No
[2024-09-10 06:37] LABS: Chloride* 105 mmol/L (96-114)
[2024-09-10 06:38] LABS: Potassium* 3.8 mmol/L (3.6-5.1); Sodium* 139 mmol/L (135-149)
[2024-09-10 06:40] LABS: Creatinine* 0.6 mg/dL (0.5-1.5); Estimated Glomerular Filt Rate 107 ml/min
[2024-09-10 06:41] LABS: Anion Gap 5 mEq/L (7-15); Blood Urea Nitrogen* 15 mg/dL (7-30); Calcium* 9.1 mg/dL (8.4-10.6); Carbon Dioxide* 29 mmol/L (20-32); Glucose* 221 mg/dL (60-115)
[2024-09-10] MEDS: AMLODIPINE 5 MG TABLET PO (08:29)
[2024-09-10] MEDS: ASPIRIN 81 MG TABLET EC PO ×2 (08:29→20:57)
[2024-09-10] MEDS: LACOSAMIDE 50 MG TABLET 100 MG PO ×2 (08:30→20:58)
[2024-09-10] MEDS: PREGABALIN 75 MG CAPSULE 150 MG PO ×2 (08:30→20:59)
[2024-09-10] MEDS: hydrOXYzine pamoate 25 MG CAPSULE PO (08:43)
[2024-09-10] MEDS: ALBUTEROL SULFATE 2.5 MG/3 ML VIAL.NEB NEB (09:37)
--- NOTE | 2024-09-10 10:20 | PC.SOCIAL ---
Discharge planning: Left messages for [facility] regarding bed availability and if they can provide services this pt will need including IV abx. 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
--- NOTE | 2024-09-10 16:16 | P.IMPN_ITS ---
Progress Note: A&P Assessment and plan (1) Postoperative wound dehiscence: Problem details: -S/P LTKA 08/14/24, s/p Left knee incision and drainage of deep abscess/deep TKA infection & debridement 09/06/24. Left knee antibiotic bead was placed for local elution of antibiotics. -Weight bear as tolerated operative extremity in knee immobilizer. Knee immobilizer should be worn at all times. -orthopedics expect return to the operating room on the 09/11/2024. - 09/07: Intraoperative gram stain: G+ cocci; wound culture pending. Orthopedic started wide spectrum IV antibiotics: Vancomycin and Zosyn and they anticipate need for PICC line and long-term IV antibiotic use and eventually transition oral antibiotics in addition to anticipating the need for infectious disease consultation once sensitivities return. 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 Change antibiotic regimen to IV ancef 2 g q8h. ID agrees with plan to have patient on IV Ancef every 8 hours for 6 weeks. PICC line likely tomorrow. Pain management adequate, continue current regimen. - 09/09: I spoke with Dr. Padmini Wallace from Infectious Disease at [place] regarding antibiotic choice and length for treatment of postoperative wound infection of a total knee arthroplasty. She agreed with Ancef as the antibiotic of choice and recommended 6 week course. She recommended placing a PICC line at this time. I also spoke with her about the patchy infiltrates and or coarse lung sounds, noting that her white count is within normal limits and she did not have any fevers. She recommended I diuresis and see how she does overnight before starting other antibiotics to cover for possible pneumonia, especially since she has been on Zosyn and vancomycin through the weekend, which would make pneumonia less likely. - 09/[address] Wallace again today. She contacted me regarding possibly adding rifampin, but we both noted that the patient takes lamotrigine for seizure disorder which could interact with rifampin. She is going to call tomorrow and do a formal consult to give recommendations for long-term antibiotic coverage. Continue IV Ancef at the high dose. Status: Acute (2) Postoperative wound infection: Problem details: -As above Status: Suspected (3) History of arthroplasty of left knee: Problem details: 3 weeks postop left total knee arthroplasty - subvastus (Dr. Renner, 08/14/2024) Status: Chronic (4) Constipation: Problem details: - Likely secondary to opioid use for recent surgery and infection. - Start scheduled Senna S - Miralax as needed Status: Acute (5) Type I diabetes mellitus: Problem details: -Kiera Coleman switched to her insulin pump yesterday. Her sugars have been a little bit higher, but still within goal, 128-204. Continue insulin pump and Accu- Cheks. Status: Acute (6) Seizure disorder: Problem details: -well controlled, last seizure was in May 2022. -Continue lamotrigine, and lacosamide. -seizure precautions Status: Chronic (7) Hypertension: Problem details: -hypertensive today, restart home blood pressure medications Status: Chronic (8) Acute renal failure: Problem details: - BUN elevated at 50. Suspect prerenal, hypovolemic (MM slightly dry, elevated gluc, type 1 DM) - 08/15/24 Cr 0.6, 09/06/24 Cr 1.7, 09/07 Cr 1.5, 09/08 Cr 0.8, resolved. - IVF stopped 09/07. - possible volume overload, give a dose of Lasix, monitor creatinine Status: Resolved Plan - VTE prophylaxis: high risk as inpatient, recent surgery, type I DM, knee immobilizer. Continue foot SCDs. Recommended low dose BID lovenox. Patient declined. Continue BID low dose Aspirin. Ambulate as able. - I spoke with David TELLO today to coordinate care; I also spoke with Dr. Wallace from Infectious Disease at [place]. Time Spent With Patient Total time spent: Today I spent 25 minutes rounding on the patient. Greater than 50% included discussing care with Infectious Disease, the team, reviewing data, updating and managing the care plan. Subjective Time Seen by Provider: 09:00 Date Seen: 09/10/24 Interval history: Jennifer tells me her insulin pump is working well. She feels her breathing is a little bit better today, but notes that she still feels painful in her left knee. Exam Narrative: Exam Narrative: General: No acute distress. Awake, alert, oriented x3. No pallor. No jaundice. Oropharynx: Clear. Mucous membranes moist. Cardiovascular: Regular rate and rhythm. No murmurs, gallops, or rubs. Respiratory: Clear to auscultation bilaterally no wheezes. No crackles. Abdomen: Bowel sounds present. Soft, nondistended, nontender. Extremities: LLE in knee immobilizer. Const: Vital Signs, click to edit/add: Vital Signs - 24 hr 09/09/24 19:26 09/09/24 20:10 09/09/24 21:17 Temperature 98 F 98 F Pulse Rate 164 H Pulse Rate [Pulse Oximeter] 103 H Respiratory Rate 18 Blood Pressure [Le ft Arm] 166/61 H Pulse Oximetry 95 Oxygen Delivery Me thod Nasal Cannula Oxygen Flow Rate 1.5 Fraction of Inspir ed Oxygen 09/09/24 21:21 09/09/24 22:34 09/09/24 22:36 Temperature 98.7 F Pulse Rate 94 Pulse Rate [Pulse Oximeter] 102 H Respiratory Rate 18 Blood Pressure [Le ft Arm] 129/89 Pulse Oximetry 94 94 Oxygen Delivery Me thod Nasal Cannula Oxygen Flow Rate 1.5 Fraction of Inspir ed Oxygen 09/09/24 22:39 09/09/24 22:39 09/09/24 22:44 Temperature Pulse Rate 103 H Pulse Rate [Pulse Oximeter] 102 H Respiratory Rate 18 18 Blood Pressure [Le ft Arm] Pulse Oximetry 94 Oxygen Delivery Me thod Nasal Cannula Oxygen Flow Rate 1.5 Fraction of Inspir ed Oxygen 0 09/10/24 02:03 09/10/24 02:07 09/10/24 07:12 Temperature 98.7 F 98.5 F Pulse Rate 88 Pulse Rate [Pulse Oximeter] 96 Respiratory Rate 18 Blood Pressure [Le ft Arm] 139/52 L Pulse Oximetry 93 Oxygen Delivery Me thod Nasal Cannula Oxygen Flow Rate 1.5 Fraction of Inspir ed Oxygen 09/10/24 07:55 09/10/24 07:57 09/10/24 07:58 Temperature Pulse Rate Pulse Rate [Pulse Oximeter] 96 Respiratory Rate 18 18 Blood Pressure [Le ft Arm] Pulse Oximetry 93 93 Oxygen Delivery Me thod Room Air Oxygen Flow Rate Fraction of Inspir ed Oxygen 09/10/24 07:58 09/10/24 11:04 09/10/24 15:08 Temperature 97.9 F 98.1 F Pulse Rate 101 H Pulse Rate [Pulse Oximeter] 91 96 Respiratory Rate 18 18 Blood Pressure [Le ft Arm] 149/57 H 151/57 H Pulse Oximetry 93 90 Oxygen Delivery Me thod Room Air Room Air Oxygen Flow Rate Fraction of Inspir ed Oxygen 0 09/10/24 15:24 09/10/24 15:26 09/10/24 15:27 Temperature Pulse Rate Pulse Rate [Pulse Oximeter] 96 Respiratory Rate 18 Blood Pressure [Le ft Arm] Pulse Oximetry 90 90 Oxygen Delivery Me thod Room Air Oxygen Flow Rate Fraction of Inspir ed Oxygen Labs Labs: Laboratory Results - last 24 hr 09/10/24 06:00 WBC 10.88 RBC 2.99 L Hgb 8.5 L Hct 28.0 L MCV 94 MCH 28 MCHC 30 L RDW Coeff of Eliud 15.2 Plt Count 243 Neut % (Auto) 73.8 H Lymph % (Auto) 11.0 L [place] % (Auto) 7.4 Eos % (Auto) 4.8 Baso % (Auto) 0.3 Neut # (Auto) 8.00 H Lymph # (Auto) 1.20 [place] # (Auto) 0.80 Eos # (Auto) 0.52 H Baso # (Auto) 0.03 Abs Immat Gran (auto) 0.29 Imm/Tot Granulo (auto) 2.7 Sodium 139 Potassium 3.8 Chloride 105 Carbon Dioxide 29 Anion Gap 5 L BUN 15 Creatinine 0.6 Estimated GFR 107 Glucose 221 H Calcium 9.1
[2024-09-10] MEDS: INSULIN PUMP (PT OWN) 1 EACH SUBCUT (17:13)
[2024-09-10] MEDS: ATORVASTATIN 10 MG TABLET PO (17:19)
[2024-09-10] MEDS: DULOXETINE HCL 20 MG CAPSULE DR 40 MG PO (17:19)
--- NOTE | 2024-09-10 19:46 | PC.NURSE ---
end of shift./ pt has been very pleasant. Pt A&O x4. leg pain 0-10/10 she is getting po pain meds. she is Up 1 assist with a walker, tolerating well, took a walk in the [place]. pt is eating, drinking and voiding. blood sugar checks on patient's Dexcom pt's insulin per pt and on paper chart in the room. she has been on RA all day. Ortho saw her today. picc is patent. surgery tomorrow to remove antibotic beads.
[2024-09-10] MEDS: ROPINIROLE HCL 1 MG TABLET PO (20:59)
[2024-09-10] MEDS: ZOLPIDEM 5 MG TABLET PO (21:27)
[2024-09-11] VITALS (33 sets, daily range): BP systolic 112–192; BP diastolic 48–100; PULSE 83–116; RESP 12–18; TEMP 36.6–37.4; O2SAT 80–100
[2024-09-11] MEDS: ACETAMINOPHEN 500 MG TABLET 1000 MG PO ×3 (01:54→14:01)
[2024-09-11] MEDS: CEFAZOLIN 2 GM in 0.9 % SODIUM CHLORIDE Mini-bag 100 ML IVPB ×2 (01:55→09:33)
[2024-09-11] MEDS: OXYCODONE 5 MG TABLET PO ×5 (01:55→23:19)
--- NOTE | 2024-09-11 06:32 | PC.NURSE ---
End of shift note [id number]: Pt alert & oriented x 4 and able to make needs known. She is on tele with NSR noted. Pt has been afebrile throughout the shift. She transfers/ambulates with SBA using FWW and gait belt. Pt continent of bowel and bladder. Call light within reach. O2 applied at 1.5 LPM after O2 sat dipped to 84% on RA when pt asleep after taking Oxycodone- O2 sat at 93% on 1.5 LPM. Pt had early breakfast at 0500 as she is ordered to be NPO starting at 0700 in prep for procedure this afternoon. PICC in place to RUE patent. Dressing to L anterior knee C/D/I with immobilizer worn. Pt slept half of the shift in recliner though wore plexi pulses when in bed and performed IS when encouraged. ?
[2024-09-11 07:44] LABS: Basophils Absolute Auto 0.04 K/uL (0.00-0.30); Basophils Percent Auto 0.4 % (0.0-3.0); Eosinophils Percent Auto 8.2 % (0.0-7.0); Hematocrit 30.7 % (33.0-51.0); Hemoglobin* 9.7 gm/dL (12.0-16.0); Immature Granulocytes Abs Auto 0.31 K/uL (0.00-0.30); Immature Granulocytes Pct Auto 3.5 %; Lymphocytes Percent Auto 14.1 % (20-44); Mean Corpuscular HGB Conc 32 gm/dL (32-36); Mean Corpuscular Hemoglobin 29 pg (26-34); Mean Corpuscular Volume 92 fL (80-100); Monocytes Percent Auto 6.3 % (0.0-11.0); Neutrophils Absolute Auto 6.01 K/uL (1.7-7.0); Neutrophils Percent Auto 67.5 % (42.0-72.0); Platelet Count* 255 K/uL (140-440); Red Blood Count 3.35 m/uL (4.00-5.20); White Blood Count* 8.91 K/uL (4.50-11.00)
[2024-09-11 07:48] LABS: Slide Review Reflex No
[2024-09-11] MEDS: PREGABALIN 75 MG CAPSULE 150 MG PO ×2 (08:29→22:16)
[2024-09-11] MEDS: AMLODIPINE 5 MG TABLET PO (08:29)
[2024-09-11] MEDS: ASPIRIN 81 MG TABLET EC PO ×2 (08:30→22:09)
[2024-09-11] MEDS: LACOSAMIDE 50 MG TABLET 100 MG PO ×2 (08:30→22:09)
[2024-09-11] MEDS: hydrOXYzine pamoate 25 MG CAPSULE PO ×2 (09:33→23:19)
--- NOTE | 2024-09-11 10:15 | PM.ORPN ---
Subjective Subjective Date Seen: 09/10/24 Principal diagnosis: POD 4 left TKA I&D Interval history: Reports overall doing okay. Pain around the kneecap region of her left knee. Some numbness along the left calf. Reports difficult to walk with a knee immobilizer in place. Brace rubs along her groin. Reports some wheezing, and productive cough. Denies any fevers or chills. Denies any lightheadedness, dizziness, short of breath, dyspnea on exertion, chest pain, or heart palpitations. Ortho Exam Narrative Exam Narrative: - knee immobilizer and dressings were removed for exam. Mepilex left in place. Knee immobilizer reapplied after exam. -Patient appears comfortable; no apparent acute distress -Alert and oriented times 3 -Operative knee mild-moderately swollen; soft tissues supple; mild ecchymosis around the knee. Warmth appropriate. No significant erythema. No erythematous streaking -Surgical dressing clean, dry, intact; no drainage -Bilateral calfs soft; no significant swelling, edema, tenderness, erythema, discoloration, warmth, or palpable cords -No swelling in her lower leg or ankle -2+ DP/PT pulses, intact dermatomes and myotomes distally (5/5 strength) Const Vital Signs, click to edit/add: Vital Signs - 24 hr 09/10/24 11:04 09/10/24 15:08 09/10/24 15:24 Temperature 98.1 F Pulse Rate 101 H Pulse Rate [Pulse Oximeter] 96 Respiratory Rate 18 Blood Pressure [Left Arm] 151/57 H Blood Pressure [Left FA] Pulse Oximetry 90 90 Oxygen Delivery Method Room Air Oxygen Flow Rate Fraction of Inspired Oxygen 09/10/24 15:26 09/10/24 15:27 09/10/24 19:37 Temperature 98.7 F Pulse Rate Pulse Rate [Pulse Oximeter] 96 92 Respiratory Rate 18 18 Blood Pressure [Left Arm] 143/53 H Blood Pressure [Left FA] 143/53 H Pulse Oximetry 90 93 Oxygen Delivery Method Room Air Room Air Oxygen Flow Rate Fraction of Inspired Oxygen 09/10/24 22:44 09/10/24 23:00 09/10/24 23:25 Temperature Pulse Rate 91 Pulse Rate [Pulse Oximeter] 95 Respiratory Rate 20 Blood Pressure [Left Arm] Blood Pressure [Left FA] Pulse Oximetry 98 Oxygen Delivery Method Oxygen Flow Rate Fraction of Inspired Oxygen 09/10/24 23:27 09/10/24 23:37 09/11/24 02:57 Temperature 98.8 F Pulse Rate Pulse Rate [Pulse Oximeter] 95 Respiratory Rate 20 20 Blood Pressure [Left Arm] Blood Pressure [Left FA] 167/70 H Pulse Oximetry 98 98 84 L Oxygen Delivery Method Room Air Room Air Room Air Oxygen Flow Rate Fraction of Inspired Oxygen 09/11/24 02:59 09/11/24 07:01 09/11/24 07:45 Temperature 98.8 F Pulse Rate 94 Pulse Rate [Pulse Oximeter] 99 Respiratory Rate 18 Blood Pressure [Left Arm] Blood Pressure [Left FA] 146/50 H Pulse Oximetry 93 93 Oxygen Delivery Method Nasal Cannula Oxygen Flow Rate 1.5 Fraction of Inspired Oxygen 09/11/24 07:45 09/11/24 08:10 09/11/24 08:10 Temperature 98.2 F Pulse Rate Pulse Rate [Pulse Oximeter] 98 99 Respiratory Rate 18 18 18 Blood Pressure [Left Arm] Blood Pressure [Left FA] 139/48 L Pulse Oximetry 95 93 Oxygen Delivery Method Room Air Nasal Cannula Oxygen Flow Rate 1.5 Fraction of Inspired Oxygen 0 Assessment and Plan Assessment and plan (1) Postoperative wound dehiscence: Problem details: -S/P LTKA 08/14/24, s/p Left knee incision and drainage of deep abscess/deep TKA infection & debridement 09/06/24. Left knee antibiotic bead was placed for local elution of antibiotics. -Weight bear as tolerated operative extremity in knee immobilizer. Knee immobilizer should be worn at all times. -orthopedics expect return to the operating room on the 09/11/2024. - 09/07: Intraoperative gram stain: G+ cocci; wound culture pending. Orthopedic started wide spectrum IV antibiotics: Vancomycin and Zosyn and they anticipate need for PICC line and long-term IV antibiotic use and eventually transition oral antibiotics in addition to anticipating the need for infectious disease consultation once sensitivities return. 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 Change antibiotic regimen to IV ancef 2 g q8h. ID agrees with plan to have patient on IV Ancef every 8 hours for 6 weeks. PICC line likely tomorrow. Pain management adequate, continue current regimen. - 09/09: I spoke with Dr. Padmini Wallace from Infectious Disease at [place] regarding antibiotic choice and length for treatment of postoperative wound infection of a total knee arthroplasty. She agreed with Ancef as the antibiotic of choice and recommended 6 week course. She recommended placing a PICC line at this time. I also spoke with her about the patchy infiltrates and or coarse lung sounds, noting that her white count is within normal limits and she did not have any fevers. She recommended I diuresis and see how she does overnight before starting other antibiotics to cover for possible pneumonia, especially since she has been on Zosyn and vancomycin through the weekend, which would make pneumonia less likely. - 09/[address] Wallace again today. She contacted me regarding possibly adding rifampin, but we both noted that the patient takes lamotrigine for seizure disorder which could interact with rifampin. She is going to call tomorrow and do a formal consult to give recommendations for long-term antibiotic coverage. Continue IV Ancef at the high dose. Status: Acute (2) Postoperative wound infection: Problem details: -As above Status: Suspected (3) History of arthroplasty of left knee: Problem details: 3 weeks postop left total knee arthroplasty - subvastus (Dr. Renner, 08/14/2024) Status: Chronic (4) Constipation: Problem details: - Likely secondary to opioid use for recent surgery and infection. - Start scheduled Senna S - Miralax as needed Status: Acute (5) Type I diabetes mellitus: Problem details: -Kiera Coleman switched to her insulin pump yesterday. Her sugars have been a little bit higher, but still within goal, 128-204. Continue insulin pump and Accu-Cheks. Status: Acute (6) Seizure disorder: Problem details: -well controlled, last seizure was in May 2022. -Continue lamotrigine, and lacosamide. -seizure precautions Status: Chronic (7) Hypertension: Problem details: -hypertensive today, restart home blood pressure medications Status: Chronic (8) Acute renal failure: Problem details: - BUN elevated at 50. Suspect prerenal, hypovolemic (MM slightly dry, elevated gluc, type 1 DM) - 08/15/24 Cr 0.6, 09/06/24 Cr 1.7, 09/07 Cr 1.5, 09/08 Cr 0.8, resolved. - IVF stopped 09/07. - possible volume overload, give a dose of Lasix, monitor creatinine Status: Resolved Plan - Continue IV Ancef via PICC line as recommended by Infectious Disease. - PT/OT consult for education and assistance - encouraged to weightbear as tolerated with the knee immobilizer in place. - Social work consult for discharge planning - likely SNF. - Prescribed analgesics as needed - DVT prophylaxis: 81 mg aspirin by mouth twice daily, walking, and SCDs - Return to OR 09/11/2024 afternoon. Will spend the night in hospital 09/11/2024.
[2024-09-11 11:17] LABS: Chloride* 102 mmol/L (96-114); Potassium* 3.8 mmol/L (3.6-5.1); Sodium* 139 mmol/L (135-149)
[2024-09-11 11:20] LABS: Anion Gap 8 mEq/L (7-15); Calcium* 8.9 mg/dL (8.4-10.6); Carbon Dioxide* 29 mmol/L (20-32); Creatinine* 0.5 mg/dL (0.5-1.5); Estimated Glomerular Filt Rate 111 ml/min; Glucose* 209 mg/dL (60-115)
[2024-09-11 11:31] LABS: Blood Urea Nitrogen* 12 mg/dL (7-30)
--- NOTE | 2024-09-11 13:10 | PC.SOCIAL ---
Discharge plan: private household worker continues to work on locating a facility for pt to go to for transitional care after hospital stay for IV abx. Pt is requesting placement in [facility] or [facility]. Currently [facility] does not have a bed available. [facility] is assessing pt for [facility] and [facility]. Called Emmanuel at [facility] who states social worekr will have a decision soon on admit to those two facilities. private household worker to follow up as needed.
[2024-09-11] MEDS: 0.9 % SODIUM CHLORIDE 500 ML IV (15:01)
--- NOTE | 2024-09-11 16:12 | P.IMPN_ITS ---
Progress Note: A&P Assessment and plan (1) Postoperative wound dehiscence: Problem details: -S/P LTKA 08/14/24, s/p Left knee incision and drainage of deep abscess/deep TKA infection & debridement 09/06/24. Left knee antibiotic bead was placed for local elution of antibiotics. -Weight bear as tolerated operative extremity in knee immobilizer. Knee immobilizer should be worn at all times. -orthopedics expect return to the operating room on the 09/11/2024. - 09/07: Intraoperative gram stain: G+ cocci; wound culture pending. Orthopedic started wide spectrum IV antibiotics: Vancomycin and Zosyn and they anticipate need for PICC line and long-term IV antibiotic use and eventually transition oral antibiotics in addition to anticipating the need for infectious disease consultation once sensitivities return. 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 Change antibiotic regimen to IV ancef 2 g q8h. ID agrees with plan to have patient on IV Ancef every 8 hours for 6 weeks. PICC line likely tomorrow. Pain management adequate, continue current regimen. - 09/09: I spoke with Dr. Padmini Wallace from Infectious Disease at [facility] regarding antibiotic choice and length for treatment of postoperative wound infection of a total knee arthroplasty. She agreed with Ancef as the antibiotic of choice and recommended 6 week course. She recommended placing a PICC line at this time. I also spoke with her about the patchy infiltrates and or coarse lung sounds, noting that her white count is within normal limits and she did not have any fevers. She recommended I diuresis and see how she does overnight before starting other antibiotics to cover for possible pneumonia, especially since she has been on Zosyn and vancomycin through the weekend, which would make pneumonia less likely. - 09/[address] Wallace again today. She contacted me regarding possibly adding rifampin, but we both noted that the patient takes lamotrigine for seizure disorder which could interact with rifampin. She is going to call tomorrow and do a formal consult to give recommendations for long-term antibiotic coverage. Continue IV Ancef at the high dose. Status: Acute (2) Postoperative wound infection: Problem details: -As above Status: Suspected (3) History of arthroplasty of left knee: Problem details: 3 weeks postop left total knee arthroplasty - subvastus (Dr. Renner, 08/14/2024) Status: Chronic (4) Constipation: Problem details: - Likely secondary to opioid use for recent surgery and infection. - Start scheduled Senna S - Miralax as needed Status: Acute (5) Type I diabetes mellitus: Problem details: -Kiera Coleman switched to her insulin pump yesterday. Her sugars have been a little bit higher, but still within goal, 128-204. Continue insulin pump and Accu- Cheks. Status: Acute (6) Seizure disorder: Problem details: -well controlled, last seizure was in May 2022. -Continue lamotrigine, and lacosamide. -seizure precautions Status: Chronic (7) Hypertension: Problem details: -hypertensive today, restart home blood pressure medications Status: Chronic (8) Acute renal failure: Problem details: - BUN elevated at 50. Suspect prerenal, hypovolemic (MM slightly dry, elevated gluc, type 1 DM) - 08/15/24 Cr 0.6, 09/06/24 Cr 1.7, 09/07 Cr 1.5, 09/08 Cr 0.8, resolved. - IVF stopped 09/07. - possible volume overload, give a dose of Lasix, monitor creatinine Status: Resolved Plan 1. Reviewed impression with patient. Discussed plans and recommendations. Answered her questions. 2. Proceed as specified. Time Spent With Patient Total time spent: 35 minutes Subjective Date Seen: 09/11/24 Interval history: Hospital day 6. Ready for surgery. Anticipating she might be ready for discharge from the hospital as early as tomorrow. Await consultation from Infectious Disease specialist. Still trying to sort out whether not it might be possible to add rifampin to her treatment regimen. May need to consider working with neurolognubia rodriguez in that regard to monitor lamotrigine levels if she is started on rifampin. I did discuss this with the patient's infectious disease specialist who will be consulting the patient later today. Exam Narrative: Exam Narrative: Appears comfortable in no acute distress. Left knee immobilizer in place. Lungs clear to auscultation. Heart tones with regular rhythm. Abdomen is benign. No focal motor neurologic deficits. Const: Vital Signs, click to edit/add: Vital Signs - 24 hr 09/10/24 19:37 09/10/24 22:44 09/10/24 23:00 Temperature 98.7 F Pulse Rate 91 Pulse Rate [Pulse Oximeter] 92 95 Respiratory Rate 18 20 Blood Pressure [Le ft Arm] 143/53 H Blood Pressure [Le ft FA] 143/53 H Pulse Oximetry 93 Oxygen Delivery Me thod Room Air Oxygen Flow Rate Fraction of Inspir ed Oxygen 09/10/24 23:25 09/10/24 23:27 09/10/24 23:37 Temperature 98.8 F Pulse Rate Pulse Rate [Pulse Oximeter] 95 Respiratory Rate 20 20 Blood Pressure [Le ft Arm] Blood Pressure [Le ft FA] 167/70 H Pulse Oximetry 98 98 98 Oxygen Delivery Me thod Room Air Room Air Oxygen Flow Rate Fraction of Inspir ed Oxygen 09/11/24 02:57 09/11/24 02:59 09/11/24 07:01 Temperature 98.8 F Pulse Rate 94 Pulse Rate [Pulse Oximeter] 99 Respiratory Rate 18 Blood Pressure [Le ft Arm] Blood Pressure [Le ft FA] 146/50 H Pulse Oximetry 84 L 93 Oxygen Delivery Me thod Room Air Nasal Cannula Oxygen Flow Rate 1.5 Fraction of Inspir ed Oxygen 09/11/24 07:45 09/11/24 07:45 09/11/24 08:10 Temperature 98.2 F Pulse Rate Pulse Rate [Pulse Oximeter] 98 99 Respiratory Rate 18 18 Blood Pressure [Le ft Arm] Blood Pressure [Le ft FA] 139/48 L Pulse Oximetry 93 95 Oxygen Delivery Me thod Room Air Oxygen Flow Rate Fraction of Inspir ed Oxygen 09/11/24 08:10 09/11/24 12:00 Temperature 98.0 F Pulse Rate Pulse Rate [Pulse Oximeter] 91 Respiratory Rate 18 18 Blood Pressure [Le ft Arm] Blood Pressure [Le ft FA] 133/53 L Pulse Oximetry 93 91 Oxygen Delivery Me thod Nasal Cannula Room Air Oxygen Flow Rate 1.5 Fraction of Inspir ed Oxygen 0 Labs Labs: Laboratory Results - last 24 hr 09/11/24 07:00 WBC 8.91 RBC 3.35 L Hgb 9.7 L Hct 30.7 L MCV 92 MCH 29 MCHC 32 RDW Coeff of Eliud 15.0 Plt Count 255 Neut % (Auto) 67.5 Lymph % (Auto) 14.1 L Han[place] % (Auto) 6.3 Eos % (Auto) 8.2 H Baso % (Auto) 0.4 Neut # (Auto) 6.01 Lymph # (Auto) 1.30 Han[place] # (Auto) 0.60 Eos # (Auto) 0.70 H Baso # (Auto) 0.04 Abs Immat Gran (auto) 0.31 H Imm/Tot Granulo (auto) 3.5 Sodium 139 Potassium 3.8 Chloride 102 Carbon Dioxide 29 Anion Gap 8 BUN 12 Creatinine 0.5 Estimated GFR 111 Glucose 209 H Calcium 8.9
--- NOTE | 2024-09-11 16:13 | SUR.OPER ---
1 GRAM OF VANOMYCIN (POWDER) AND 240mg OF TOBRAMYCIN (LIQUID) MIXED WITH STIMULAN POWDER TO CREATE ANTIBIOTIC BEADS PLACED INTO THE PATIENTS LEFT KNEE INCISION.
[2024-09-11] MEDS: VANCOMYCIN 100 MG/ML INJ 1000 MG TOPICAL (16:30)
[2024-09-11] MEDS: fentaNYL 100 MCG/2 ML inj 50 MCG IVP ×2 (17:10→17:20)
[2024-09-11] MEDS: 0.9 % SODIUM CHLORIDE 250 ml 250 ML IV (17:20)
--- NOTE | 2024-09-11 17:21 | W.ANESCHARGE ---
Anesthesia Charges Start Date/Time Anesthesia Start Date: 09/11/24 Anesthesia Start Time: 15:01 Stop Date/Time Anesthesia Stop Date: 09/11/24 Anesthesia Stop Time: 17:07
[2024-09-11] MEDS: HYDROmorphone 0.5 mg/0.5 ml inj IVP (17:30)
--- NOTE | 2024-09-11 18:13 | PM.ORPRC ---
Procedure Note Date of procedure: 09/11/24 Procedure: PREOPERATIVE DIAGNOSIS: 1. Left infected total knee arthroplasty, acute 2. Left knee retained antibiotic beads POSTOPERATIVE DIAGNOSIS: 1. Left infected total knee arthroplasty, acute 2. Left knee retained antibiotic beads PROCEDURE: 1. Left total knee incision and drainage deep abscess, open 2. Left total knee excisional debridement of skin, subcutaneous tissue, and fascia 3. Left total knee antibiotic bead exchange 4. Left total knee polyethylene exchange 5. Left knee negative pressure dressing application (wound VAC) on the skin surface as an incisional VAC. Length of incision was 25 cm. SURGEON: Skyler Renner MD. MANAGER ENVIRONMENTAL HEALTH AND SAFETY: David Ross PA-C; KVGN Chávez - Of note, a skilled property assistant was critical for this case to aid in patient positioning, tissue retraction, limb manipulation/positioning, and closure. ANESTHESIA: General endotracheal anesthetic EBL: 150 mL IMPLANTS: DePuy J&J all cemented TKA - Attune With retained tibial and femoral and patellar components. The polyethylene spacer was exchanged today (4 to match the femur, 5 mm thick) Calcium sulfate antibiotic beads (medium) that were mixed with vancomycin and gentamicin were placed deep to the capsule. TOURNIQUET: 36 minutes at 300 torr COMPLICATIONS: None evident INDICATIONS: The patient is a pleasant 53-year-old female who has experienced an acute infection that developed within the last 1 week. She slipped down for bed and noted that her wound open. She was seen in clinic. It was felt prudent to taken to the operating room. This was done last week 09/06/2024. At that time, thorough irrigation normal saline and debridement was performed along with drainage of deep abscess. Cement laden antibiotic beads were placed on a string. These needed to come out and the polyethylene exchange needed to be performed. FINDINGS: Minor purulence encountered in the subcutaneous tissues and the deep layers. The quadriceps muscle and tendon were intact along with the patellar tendon. It all TKA components were still intact. The antibiotic beads were intact and on the string. We were able to remove the antibiotic beads without difficulty. DESCRIPTION OF PROCEDURE: Following a thorough discussion of risks, benefits, and alternatives consent was obtained and the left knee was marked. The patient was brought to the operating room and placed supine on the operating table. Induction of anesthesia was undertaken. The patient received antibiotics within the last few hours and thus no antibiotics were administered within the 1 hour of incision time today. Proper time-out was performed identifying proper patient, site, procedure. The operative extremity was prepped and draped in the appropriate sterile fashion using ChloraPrep after the patient was positioned supine with all bony prominences well padded. The previous skin incision was reopened with a scalpel. The suture tails were removed. The quadriceps/VMO was mobilized from subcutaneous layer. The subvastus approach/retinacular incision along the medial tibia and medial knee was reopened. The Prolene sutures were removed. The antibiotic beads were identified on at the Lemus string. All 10 beads were removed. The implants were inspected and found to be in normal condition without evidence of scratching or other trauma. Thorough irrigation normal saline was performed. Debridement was then performed with a combination of rongeur, curette, and scalpel including of tissues of subcutaneous fat and deep fascia. This included versus the within the knee joint as well including an extensive debridement of the anterior, medial, lateral, and inferior synovial tissues. We did remove the polyethylene to help us improve access to the posterior portion knee, but certainly not all the posterior capsule could be accessed. Thorough scrubbing debridement was performed with chlorhexidine sponge and brush. This was of all the tissues that could be accessed. This included the metal components of the femur and tibia. Thereafter, another excisional debridement and irrigation with normal saline was undertaken. Meanwhile on the back table, the calcium sulfate beads of medium size (4-5 mm in diameter) or mixed with 1 g vancomycin and 240 mg of gentamicin liquid. This part he was placed into the silicone molds and allowed to harden. The beads were then removed from the mold and gathered for later insertion into the deep knee capsule region. While these were being formed, a new polyethylene was opened and inserted. Thereafter, a 3 minute Betadine soak was performed. Finally, another thorough irrigation normal saline (3 L) was completed. Thereafter, the tourniquet was deflated and hemostasis achieved. Then the calcium sulfate antibiotic beads were inserted into the suprapatellar pouch and the medial and lateral gutters. 10 cc of calcium sulfate were mixed, approximately 2/3-3/4 of those beads were placed within the knee. Closure was then performed of the deep capsule with # 0 PDS and Stratafix. Subcutaneous closure was performed with # 0 PDS and 2-0 Stratafix. Subcuticular closure with 4-0 Monocryl. Silver impregnated dressing was applied. The central 3rd of it was removed on the superficial surface so that a wound VAC sponge could be applied. The sponge was applied after the silver dressing and an excellent seal on the wound VAC was achieved. Wound VAC will be continued at 125 mmHg with continuous suction. I would anticipate she would benefit from this for multiple days-not likely weeks. This is an incisional wound VAC. It is not within the wound. The patient was awoken from anesthesia and transferred the PACU in stable condition. Of note, multiple assistants were critical for this case to aid in patient positioning, tissue retraction, antibiotic bead mixing/forming, limb manipulation/positioning, patient safety, and closure. PLAN: 1. Weight bear as tolerated operative extremity. 2. 23 hr perioperative antibiotics. 3. Ice. 4. PT/OT consults for ambulation assistance/mobility education. 5. Social work consult for discharge planning. 6. DVT prophylaxis with at SCDs and aspirin twice daily.
--- NOTE | 2024-09-11 18:14 | CRLHL7_ITS ---
For Patients: As a result of the Century Cures Act, medical imaging exams and procedure reports are released immediately into your electronic medical record. You may view this report before your referring provider. If you have questions, please contact your health care provider. INDICATION: Post op delirium/hypoxia. TECHNIQUE: Chest 1 view. COMPARISON: Chest radiograph 09/09/2024. FINDINGS: Lines and tubes: Right PICC with tip in the lower SVC. Cardiovascular: Mild cardiomegaly with pulmonary vascular congestion. Lungs and pleural spaces: Low lung volumes with scattered atelectasis. Increased interstitial opacities bilaterally. Retrocardiac consolidation with air bronchograms. No large effusions. No pneumothorax identified. Bones and soft tissues: Partially visualized cervical spine hardware. IMPRESSION: 1. Mild cardiomegaly with pulmonary vascular congestion and bilateral interstitial prominence likely due to edema. 2. Retrocardiac consolidation may represent atelectasis or infiltrate. Dictated by Dana Maldonado MD @ 09/11/2024 7:21:17 PM (Electronically Signed)
[2024-09-11 18:39] LABS: Basophils Percent Auto 0.3 % (0.0-3.0); Eosinophils Percent Auto 3.3 % (0.0-7.0); Hematocrit 29.9 % (33.0-51.0); Hemoglobin* 9.3 gm/dL (12.0-16.0); Immature Granulocytes Pct Auto 4.2 %; Lymphocytes Percent Auto 6.7 % (20-44); Mean Corpuscular HGB Conc 31 gm/dL (32-36); Mean Corpuscular Hemoglobin 29 pg (26-34); Mean Corpuscular Volume 93 fL (80-100); Monocytes Percent Auto 2.6 % (0.0-11.0); Neutrophils Percent Auto 82.9 % (42.0-72.0); Platelet Count* 312 K/uL (140-440); RDW Coefficient of Variation % 14.8 % (11.5-15.5); White Blood Count* 13.66 K/uL (4.50-11.00)
[2024-09-11] MEDS: 5 % DEXTROSE/0.9% SOD CHLORIDE 1,000 ML 125 ML IV (18:39)
[2024-09-11 18:41] LABS: Slide Review Reflex No
[2024-09-11 18:42] LABS: HCO3 VBG 30 mmol/L (21-28); Ionized Calcium* 1.19 mmol/L (1.11-1.30); Lactate* 0.6 mmol/L (0.5-1.9); PCO2 VBG 56 mmHG (40-50); PO2 VBG 41.8 mmHG (25-47)
[2024-09-11 19:00] LABS: Chloride* 105 mmol/L (96-114); Potassium* 4.1 mmol/L (3.6-5.1); Sodium* 140 mmol/L (135-149)
[2024-09-11 19:03] LABS: Anion Gap 6 mEq/L (7-15); Carbon Dioxide* 29 mmol/L (20-32); Creatinine* 0.6 mg/dL (0.5-1.5); Estimated Glomerular Filt Rate 107 ml/min
[2024-09-11 19:04] LABS: Blood Urea Nitrogen* 9 mg/dL (7-30); Glucose* 134 mg/dL (60-115); Magnesium* 1.8 mg/dL (1.5-2.6)
[2024-09-11] MEDS: FUROSEMIDE 10 MG/ML inj 40 MG IVP (19:09)
[2024-09-11 19:20] LABS: Troponin I* < 0.01 ng/mL (0.01-0.04)
--- NOTE | 2024-09-11 19:28 | PM.EN ---
Chart Event Note Date Seen: 09/11/24 Chart Event Note: Called to patient's room immediately upon arrival from the PACU. She was agitated and uncooperative, hypertensive, hypoxic on 10L by mask, her right lower extremity was beating rhythmically intermittently on the bed. Her eyes were closed but she could moan and but and mumble a few words. OR nurse states, this is not a seizure; it is not a grand mal seizure I have given her fentanyl x 2, dilaudid, oxygen and nothing has touched this I think this is pain She was extubated approximately 1715. Shortly after arrival in the PACU, she was rhythmically beating her right lower extremity against the bed and making non coherent sounds. She would open her eyes and then blink them closed. She was hypertensive, tachycardic and hypoxic. They applied oxygen up to 10 L. she became more agitated. She was in PACU for about 45 minutes before being brought to the floor. was not called to the PACU. There was no heads-up to the nursing staff that she was agitated and hypoxic and behaving strangely. Med Surg staff noted an immediate concern given her agitation, rhythmically shaking her right leg and hypoxia. -I entered the room at approximately 1800. I recognized a focal partial seizure. I ordered 2 mg of IV lorazepam stat. We titrated her oxygen down to 2 L. I ordered stat labs, stat chest x-ray. The Ativan extinguished her seizure almost immediately. She was moved to the ICU. Her labs were reassuring. Her hemoglobin was stable. Her white blood cell count was up but likely secondary to surgery and demargination. Her pH was normal. Her pCO2 was only mildly elevated at 56. She was in normal sinus rhythm. Tachycardic. On the monitor. EKG showed sinus tachycardia. Her chemistries were normal. She is a type 1 diabetic and her blood sugars were greater than 100. I started D5 normal saline. Her portable chest showed: 1. Mild cardiomegaly with pulmonary vascular congestion and bilateral interstitial prominence likely due to edema. 2. Retrocardiac consolidation may represent atelectasis or infiltrate. Assessment Plan 1. Postop 2nd washout for septic left knee. 2. Postop focal partial seizure. Status epilepticus x45 min 3. Acute pulmonary edema 3. Type 1 diabetes -patient is currently on high-flow oxygen to help with pulmonary edema and reduce her CO2 -IV Lasix x1 dose, 40 mg given for the acute interstitial edema -Bui catheter placed for accurate urine output measurement -we can repeat Ativan with any sign of seizure -she is either postictal or mildly sedated from meds -- continue to monitor neuro exam
--- NOTE | 2024-09-11 20:03 | PC.NURSE ---
end of shift. pt has been very pleasant. Pt A&O x4. leg pain 2-7/10 she is getting po pain Meds. she is Up 1 assist with a walker, tolerating well, took a walk in the [place]. pt is eating, drinking and voiding. blood sugar checks on patient's Dexcom pt's insulin per pt and on paper chart in the room. she has been on RA all day. Ortho saw her today. picc is patent. pt went to surgery @ 1500 back at 1750. she was trashing in the in the bed coming down the sorenson. she was yelling out. pt was help, back into room 258. after looking at pt, Tube Washer asked for the MD to come and see this pt. Charge nurse was in the room at this time. pt was thrashing around in bed moving arms and leg. Pacu nurse said she has been doing this for 45 minutes. BP is elevated and she is on a mask @ 10 L. pt was no responding to report writer and she was very sweaty/ BS was 110/ MD came in to see pt and IV Ativan was ordered. bed was lined with the pads to help protect the pt from thrashing., she was hitting her right leg against the side rail of the bed. the Ativan stopped at seizure like activity. BP did come down. we where able to place the pt on 2-3 L nc. Stat X ray and Labs ordered. EKG was done and Bui was placed. tele shows Sinus tachycardia. pt was moved in to CCU and made a unit pt. High flow was started/ pt hands and fore arms where swollen and Lasix was given./
--- NOTE | 2024-09-11 22:02 | PC.NURSE ---
Received phone call from from [facility] at [phone]. They are currently seeing Jennifer for PT/OT. They would like to speak with Non Food Receiving Clerk about discharge plan.
[2024-09-11] MEDS: SENNOSIDES/DOCUSATE TABLET 2 TAB PO (22:09)
[2024-09-11] MEDS: ROPINIROLE HCL 1 MG TABLET PO (22:09)
[2024-09-11] MEDS: 5 % DEXTROSE/0.9% SOD CHLORIDE 1,000 ML 50 ML IV (22:23)
[2024-09-11] MEDS: ALBUTEROL SULFATE 2.5 MG/3 ML VIAL.NEB NEB (22:46)
[2024-09-11] MEDS: ENOXAPARIN 30 MG/0.3ML INJ SUBCUT (22:46)
--- NOTE | 2024-09-11 23:15 | PC.NURSE ---
Jennifer yelled out that she need nice ice and as I approached her bed I noted her right leg tremoring. I inquired if this was normal for her and she says, yes, this happens. She is speaking in full sentences and alert and oriented. Dr. Conn at bedside to observe. Jennifer endorses that her siblings have this same issue. See MAR for new orders. Primary nurse updated.
[2024-09-12] VITALS (8 sets, daily range): BP systolic 127–155; BP diastolic 44–69; PULSE 91–107; RESP 12–20; TEMP 36.3–37.1; O2SAT 94–99
[2024-09-12] MEDS: CEFAZOLIN 2 GM in 0.9 % SODIUM CHLORIDE Mini-bag 100 ML IVPB ×2 (01:33→09:06)
[2024-09-12] MEDS: OXYCODONE 5 MG TABLET PO ×3 (05:09→12:53)
[2024-09-12] MEDS: hydrOXYzine pamoate 25 MG CAPSULE PO (05:09)
[2024-09-12] MEDS: ALBUTEROL SULFATE 2.5 MG/3 ML VIAL.NEB NEB (05:42)
--- NOTE | 2024-09-12 06:49 | PC.NURSE ---
-: ?pleasant and cooperative. Pt was on HFNC at start of shift, changed to NC at HS, pt requiring 1-1.5L O2 while asleep. Nonproductive coarse cough, encouraging deep breathing exercises, prn neb given x 2. Pt ? pain 8-9/10, prn oxy and vistaril given x 2, active ice to left knee. Pt got up to chair with A x 2 gb and walker, tolerated well. Left knee immobilizer on. Wound vac patent and draining. Bui patent and draining. D5NS running at 50mL/hr. BGs have been in the 100s, 0600 BG check was 223 - pt had just finished eating mashed potatoes.
[2024-09-12 07:22] LABS: Basophils Percent Auto 0.2 % (0.0-3.0); Hematocrit 28.7 % (33.0-51.0); Immature Granulocytes Pct Auto 4.7 %; Lymphocytes Percent Auto 9.3 % (20-44); Mean Corpuscular HGB Conc 31 gm/dL (32-36); Mean Corpuscular Hemoglobin 29 pg (26-34); Mean Corpuscular Volume 92 fL (80-100); Monocytes Percent Auto 3.7 % (0.0-11.0); Neutrophils Percent Auto 82.1 % (42.0-72.0); Platelet Count* 322 K/uL (140-440); RDW Coefficient of Variation % 14.6 % (11.5-15.5); Red Blood Count 3.12 m/uL (4.00-5.20); White Blood Count* 11.59 K/uL (4.50-11.00)
[2024-09-12 07:25] LABS: Slide Review Reflex No
[2024-09-12 07:30] LABS: Chloride* 101 mmol/L (96-114); Potassium* 4.2 mmol/L (3.6-5.1); Sodium* 140 mmol/L (135-149)
[2024-09-12 07:32] LABS: Creatinine* 0.6 mg/dL (0.5-1.5); Estimated Glomerular Filt Rate 107 ml/min
[2024-09-12 07:33] LABS: Anion Gap 8 mEq/L (7-15); Blood Urea Nitrogen* 9 mg/dL (7-30); Calcium* 8.9 mg/dL (8.4-10.6); Carbon Dioxide* 31 mmol/L (20-32); Glucose* 198 mg/dL (60-115)
[2024-09-12] MEDS: LACOSAMIDE 50 MG TABLET 100 MG PO (09:02)
[2024-09-12] MEDS: AMLODIPINE 5 MG TABLET PO (09:02)
[2024-09-12] MEDS: ASPIRIN 81 MG TABLET EC PO (09:03)
[2024-09-12] MEDS: PREGABALIN 75 MG CAPSULE 150 MG PO (09:05)
[2024-09-12] MEDS: ENOXAPARIN 30 MG/0.3ML INJ SUBCUT (12:00)
--- NOTE | 2024-09-12 14:02 | PC.SOCIAL ---
Discharge planning: Pt was accepted for admit to [facility] for today. Pt is pleased with this plan. Called sister at pt's request. Sister is also pleased with this plan. Pt and sister are in agreement with plan to send pt by no-emergency EMS due to a medical need for this level of transport and that it is expected to be covered by pt's insurance. Secure emailed discharge information to [place] director of healthcare systems and completed and submitted PAS #[id number]. Provided pt with copy of important message from Medicare and explained option to appeal discharge. Also shared this information by phone with sister at pt's request. Pt stated she is pleased with discharge plan.
--- NOTE | 2024-09-12 14:37 | P.DS_ITS ---
DS: Providers Provider Date Seen: 09/12/24 Date of admission: 09/06/24 17:39 Primary care physician: David Parisi MD Admitting Clinician: Skyler Renner MD Consults: 09/06/24 17:35 Consult to Occupational Therapy [CONS] Routine Comment: Reason(s) for OT Consult:: ADLs Prior to Discharge Any Restrictions?:: See Comment Comment: See nursing activity order for any restrictions. Consult to Physical Therapy [CONS] Routine Comment: Ambulate in the [place] today. Reason(s) for PT Consult:: Evaluate and Treat Any Restrictions?:: See Comment Comment: WBAT LLE No L knee ROM's - Bear weight in knee immobilizer only Consult to Physician [CONS] Routine Comment: Consulting Provider: Hospitalists Has provider been notified: No Consult to Supreme Court Judge [CONS] Routine Comment: Reason for Consult:: Discharge Planning Needs 09/11/24 11:23 Consult to Infectious Diseases [CONS] Routine Comment: Consulting Provider: [facility] Attending Physician on discharge: Boo Braun MD Date of Discharge: 09/12/24 DS: Diagnosis Discharge Diagnosis (1) Postoperative wound infection: Status: Suspected Problem details: -As listed in postoperative wound dehiscence section (2) Postoperative wound dehiscence: Status: Acute Problem details: -S/P LTKA 08/14/24, s/p Left knee incision and drainage of deep abscess/deep TKA infection & debridement 09/06/24. Left knee antibiotic bead was placed for local elution of antibiotics. -Weight bear as tolerated operative extremity in knee immobilizer. Knee immobilizer should be worn at all times. -orthopedics expect return to the operating room on the 09/11/2024. - 09/07: Intraoperative gram stain: G+ cocci; wound culture pending. Orthopedic started wide spectrum IV antibiotics: Vancomycin and Zosyn and they anticipate need for PICC line and long-term IV antibiotic use and eventually transition oral antibiotics in addition to anticipating the need for infectious disease consultation once sensitivities return. 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 Change antibiotic regimen to IV ancef 2 g q8h. ID agrees with plan to have patient on IV Ancef every 8 hours for 6 weeks. PICC line likely tomorrow. Pain management adequate, continue current regimen. - 09/09: I spoke with Dr. Padmini Wallace from Infectious Disease at [facility] regarding antibiotic choice and length for treatment of postoperative wound infection of a total knee arthroplasty. She agreed with Ancef as the antibiotic of choice and recommended 6 week course. She recommended placing a PICC line at this time. I also spoke with her about the patchy infiltrates and or coarse lung sounds, noting that her white count is within normal limits and she did not have any fevers. She recommended I diuresis and see how she does overnight before starting other antibiotics to cover for possible pneumonia, especially since she has been on Zosyn and vancomycin through the weekend, which would make pneumonia less likely. - 09/[address] Wallace again today. She contacted me regarding possibly adding rifampin, but we both noted that the patient takes lamotrigine for seizure disorder which could interact with rifampin. She is going to call tomorrow and do a formal consult to give recommendations for long-term antibiotic coverage. Continue IV Ancef at the high dose. - 09/12/2024: On cefazolin 2 g IV q.8 hours until the end of the day on 10/17/2023. Will have follow-up with Dr. Austin via [employer] before completion of the cefazolin IV. Decision was made to not start rifampin due to underlying seizure disorder and medication she takes to treat this. (3) Seizure disorder: Status: Chronic Problem details: -previously well controlled, last seizure was in May 2022. -Continue lamotrigine, and lacosamide. -seizure precautions (4) Type I diabetes mellitus: Status: Acute Problem details: -insulin pump -A1C 7.1 on 08/27/24 (5) Insulin pump in place: Status: Acute (6) Restless leg syndrome: Status: Acute Problem details: - immediately postoperatively on 09/11/2024, patient had uncontrolled restless leg syndrome which she gets from time to time. Initially the thought was that this might represent a breakthrough seizure. Over time it was apparent that she was not having seizures as she was able to interact and talk sensibly. (7) Hypertension: Status: Chronic Problem details: (8) Constipation: Status: Acute Problem details: - Likely secondary to opioid use for recent surgery and infection. - Start scheduled Senna S - Miralax as needed (9) Dyslipidemia: Status: Chronic (10) Obesity: Status: Acute Problem details: BMI 38.9 DS: Summary Hospital Course Hospital Course: 53-year-old woman underwent elective left total knee arthroplasty on 08/14/2024. Did well postoperatively initially, save some oozing and dehiscence and redness noted around the incision site. Later slipped and fell with larger dehiscence occurring. No fevers, rigors, diaphoresis. Underwent washout with retention of prosthesis on 09/06/2024. Purulent material noted deep within the incision and joint space. Antibiotic beads were placed. Cultures grew out Staph xylosus, pansensitive, methicillin susceptible. Initially started on IV vancomycin and piperacillin with tazobactam. Later switch to cefazolin 2 g IV q.8 hours. PICC line was placed. Antibiotic beads were removed on 09/12/2024. Discharged to the transitional care unit on 09/13/2024 and will complete antibiotic regimen on 10/17/2024. Will have follow-up with infectious disease specialist, Dr. Austin, via telehealth prior to completion of the IV antibiotic regimen. Status at Discharge Functional status at discharge: uses cane/walker Overall status at discharge: patient is progressing back to baseline Time Spent with Patient Time attestation: Total time spent providing and/or coordinating discharge services: Time spent: Greater than 30 minutes Exam Narrative: Exam Narrative: Appears comfortable in no acute distress. Left knee immobilizer in place. Lungs clear to auscultation. Heart tones with regular rhythm. Abdomen is benign. No focal motor neurologic deficits. Const: Vital Signs, click to edit/add: Vital Signs - 24 hr 09/11/24 15:00 09/11/24 15:00 09/11/24 15:00 Temperature Pulse Rate 94 Pulse Rate [Pulse Oximeter] 91 Respiratory Rate 18 Blood Pressure Blood Pressure [Le ft FA] Pulse Oximetry 91 Oxygen Delivery Me thod Oxygen Flow Rate Fraction of Inspir ed Oxygen 09/11/24 15:00 09/11/24 17:05 09/11/24 17:10 Temperature 98.6 F Pulse Rate 105 H 103 H Pulse Rate [Pulse Oximeter] Respiratory Rate 18 16 Blood Pressure 191/100 H 182/82 H Blood Pressure [Le ft FA] Pulse Oximetry 95 80 L 99 Oxygen Delivery Me thod Room Air Room Air Non Rebreather Mas k Oxygen Flow Rate 10 Fraction of Inspir ed Oxygen 0 09/11/24 17:15 09/11/24 17:20 09/11/24 17:25 Temperature Pulse Rate 102 H 105 H 107 H Pulse Rate [Pulse Oximeter] Respiratory Rate 16 16 16 Blood Pressure 173/99 H 168/94 H 179/80 H Blood Pressure [Le ft FA] Pulse Oximetry 99 99 99 Oxygen Delivery Me thod Non Rebreather Mas k Non Rebreather Mas k Non Rebreather Mas k Oxygen Flow Rate 10 10 10 Fraction of Inspir ed Oxygen 0 0 0 09/11/24 17:30 09/11/24 17:35 09/11/24 17:40 Temperature Pulse Rate 112 H 105 H 112 H Pulse Rate [Pulse Oximeter] Respiratory Rate 16 16 16 Blood Pressure 145/71 H 192/74 H 181/76 H Blood Pressure [Le ft FA] Pulse Oximetry 99 100 98 Oxygen Delivery Me thod Non Rebreather Mas k Non Rebreather Mas k Non Rebreather Mas k Oxygen Flow Rate 10 10 10 Fraction of Inspir ed Oxygen 0 0 0 09/11/24 17:45 09/11/24 17:50 09/11/24 18:00 Temperature 99.3 F Pulse Rate 113 H 116 H Pulse Rate [Pulse Oximeter] Respiratory Rate 16 16 14 Blood Pressure 177/98 H 179/84 H Blood Pressure [Le ft FA] 120/89 Pulse Oximetry 98 98 85 L Oxygen Delivery Me thod Non Rebreather Mas k Non Rebreather Mas k Non Rebreather Mas k Oxygen Flow Rate 10 10 210 Fraction of Inspir ed Oxygen 0 0 0 09/11/24 18:10 09/11/24 18:20 09/11/24 19:00 Temperature 99.3 F Pulse Rate Pulse Rate [Pulse Oximeter] 107 H Respiratory Rate 14 14 Blood Pressure Blood Pressure [Le ft FA] 164/69 H 181/67 H 170/80 H Pulse Oximetry 94 85 L Oxygen Delivery Me thod Non Rebreather Mas k Nasal Cannula Non Rebreather Mask Oxygen Flow Rate 10 2 Fraction of Inspir ed Oxygen 0 0 09/11/24 19:10 09/11/24 19:20 09/11/24 19:25 Temperature Pulse Rate 95 Pulse Rate [Pulse Oximeter] 104 H 97 Respiratory Rate Blood Pressure Blood Pressure [Le ft FA] 161/69 H 151/59 H Pulse Oximetry Oxygen Delivery Me thod Oxygen Flow Rate Fraction of Inspir ed Oxygen 09/11/24 19:30 09/11/24 19:30 09/11/24 20:20 Temperature 97.8 F Pulse Rate Pulse Rate [Pulse Oximeter] 95 Respiratory Rate 12 12 Blood Pressure Blood Pressure [Le ft FA] 146/64 H Pulse Oximetry 89 Oxygen Delivery Me thod High Flow Nasal Ca nnula Oxygen Flow Rate 30 Fraction of Inspir ed Oxygen 25 09/11/24 20:30 09/11/24 21:00 09/11/24 21:30 Temperature 98 F Pulse Rate Pulse Rate [Pulse Oximeter] 83 92 88 Respiratory Rate 12 12 12 Blood Pressure Blood Pressure [Le ft FA] 112/52 L 173/74 H 131/56 L Pulse Oximetry 93 94 95 Oxygen Delivery Me thod High Flow Nasal Ca nnula High Flow Nasal Ca nnula High Flow Nasal Ca nnula Oxygen Flow Rate 30 30 30 Fraction of Inspir ed Oxygen 25 25 25 09/11/24 22:30 09/11/24 22:56 09/11/24 23:00 Temperature Pulse Rate 95 Pulse Rate [Pulse Oximeter] 98 Respiratory Rate 12 12 Blood Pressure Blood Pressure [Le ft FA] 151/72 H Pulse Oximetry 90 94 Oxygen Delivery Me thod High Flow Nasal Ca nnula Nasal Cannula Oxygen Flow Rate 30 1.5 Fraction of Inspir ed Oxygen 25 09/11/24 23:00 09/11/24 23:00 09/11/24 23:00 Temperature Pulse Rate Pulse Rate [Pulse Oximeter] 99 99 Respiratory Rate 12 14 Blood Pressure Blood Pressure [Le ft FA] 156/77 H Pulse Oximetry 94 93 Oxygen Delivery Me thod Nasal Cannula Oxygen Flow Rate 1.5 Fraction of Inspir ed Oxygen 09/11/24 23:30 09/12/24 00:00 09/12/24 02:01 Temperature 97.3 F L Pulse Rate Pulse Rate [Pulse Oximeter] 98 99 97 Respiratory Rate 12 12 14 Blood Pressure Blood Pressure [Le ft FA] 156/66 H 155/69 H 134/62 Pulse Oximetry 91 95 94 Oxygen Delivery Me thod Nasal Cannula Nasal Cannula Nasal Cannula Oxygen Flow Rate 1.5 1.5 1 Fraction of Inspir ed Oxygen 09/12/24 03:48 09/12/24 04:00 09/12/24 04:23 Temperature 97.8 F Pulse Rate 92 Pulse Rate [Pulse Oximeter] 91 Respiratory Rate 16 14 Blood Pressure Blood Pressure [Le ft FA] 138/55 L Pulse Oximetry 94 Oxygen Delivery Me thod Nasal Cannula Oxygen Flow Rate 1 Fraction of Inspir ed Oxygen 09/12/24 06:00 09/12/24 07:00 09/12/24 07:00 Temperature Pulse Rate Pulse Rate [Pulse Oximeter] 107 H Respiratory Rate 16 Blood Pressure Blood Pressure [Le ft FA] 144/46 H Pulse Oximetry 96 99 99 Oxygen Delivery Me thod Nasal Cannula Room Air Oxygen Flow Rate 1 Fraction of Inspir ed Oxygen 09/12/24 07:00 09/12/24 07:00 09/12/24 07:00 Temperature 98.4 F Pulse Rate 104 H Pulse Rate [Pulse Oximeter] 104 H Respiratory Rate 20 20 Blood Pressure Blood Pressure [Le ft FA] 140/44 H Pulse Oximetry 99 Oxygen Delivery Me thod Room Air Oxygen Flow Rate Fraction of Inspir ed Oxygen 09/12/24 11:00 Temperature 98.7 F Pulse Rate Pulse Rate [Pulse Oximeter] 94 Respiratory Rate 20 Blood Pressure Blood Pressure [Le ft FA] 127/57 L Pulse Oximetry 94 Oxygen Delivery Me thod Room Air Oxygen Flow Rate Fraction of Inspir ed Oxygen DS: Data Data Completed and Pending Completed studies during hospitalization: Procedures Replacement of Left Knee Joint with Synthetic Substitute, Cemented, Open Approach (08/15/24) Labs on day of discharge: Labs from last 24 hours 09/12/24 09/11/24 06:00 18:36 WBC 11.59 H 13.66 H RBC 3.12 L 3.20 L Hgb 9.0 L 9.3 L Hct 28.7 L 29.9 L MCV 92 93 MCH 29 29 MCHC 31 L 31 L RDW Coeff of Eliud 14.6 14.8 Plt Count 322 312 Neut % (Auto) 82.1 H 82.9 H Lymph % (Auto) 9.3 L 6.7 L [place] % (Auto) 3.7 2.6 Eos % (Auto) 0.0 3.3 Baso % (Auto) 0.2 0.3 Neut # (Auto) 9.50 H 11.30 H Lymph # (Auto) 1.10 0.90 [place] # (Auto) 0.40 0.40 Eos # (Auto) 0.00 0.50 Baso # (Auto) 0.00 0.00 Abs Immat Gran (auto) 0.50 H 0.60 H Imm/Tot Granulo (auto) 4.7 4.2 VBG pH 7.340 VBG pCO2 56 H VBG pO2 41.8 VBG HCO3 30 H Sodium 140 140 Potassium 4.2 4.1 Chloride 101 105 Carbon Dioxide 31 29 Anion Gap 8 6 L BUN 9 9 Creatinine 0.6 0.6 Estimated GFR 107 107 Glucose 198 H 134 H Lactate 0.6 Calcium 8.9 9.0 Ionized Calcium Azra 1.19 Magnesium 1.8 Troponin I < 0.01 L Imaging Chest x-ray: Radiologist's impression: 1. Mild cardiomegaly with pulmonary vascular congestion and bilateral interstitial prominence likely due to edema. 2. Retrocardiac consolidation may represent atelectasis or infiltrate. Discharge Plan Discharge Disposition: [facility] Date of Admission: 09/06/24 17:39 Attending Provider on Discharge: Boo Braun Consulting Providers: Terese Driver; Jolly Mendes; Jose L Witt; Miki Bales; James Bartlett; Mary Lou Brown; Eve Conn; Elena Mathew; Nirmala Parks; Boo Braun; Jodi Lu; David Parisi; George Roblero; Kacy Fang; Lan Payne; Lai Guzman; Davon Escobar; Leisa Bagley; Ahsan Verma; Loreta Huff; Ana Blue; Kelsey Alan; Chioma Petit; Farrah Zelaya; Mj Craig; Richard Lynch; Jose Melgar; Yudi Kebede; Tavares Dugan; Teddy Callejas; Padmini Sena; Debi Shay Primary Care Provider: David Parisi Condition: Improved Anticipated Discharge Date/Time: 09/12/24 11:35 Discharge Medications: New cefazolin 2 gram recon soln 2 g IV Q8H Qty: 25 2RF hydrocortisone 1 % cream 1 applic topical TID PRNQty: 28.4 0RF zolpidem 5 mg Tablet 5 mg PO HS PRN30 Days Qty: 30 1RF pregabalin [Lyrica] 75 mg Capsule 150 mg PO BID 30 Days Qty: 120 1RF sennosides-docusate sodium [Senna-S] 8.6-50 mg tablet 1 - 2 tab-cap PO BID PRN (Reason: constipation) Qty: 60 0RF Rx Instructions: Hold medication if experiencing loose stools. acetaminophen 500 mg capsule 500 - 1,000 mg PO Q6H MDD 4000mg PRNQty: 100 0RF oxycodone 5 mg tablet 2.5 - 5 mg PO Q4-6H MDD 6 PRN (Reason: pain) Qty: 30 0RF Rx Instructions: Take as needed for postop pain: 2.5mg mild pain, 5mg moderate-severe pain; wean as tolerated. aspirin 81 mg tablet,delayed release (DR/EC) 81 mg PO BID Qty: 60 0RF Rx Instructions: Medication to help prevent blood clots postoperatively; take TWICE daily. Continued lamotrigine 250 mg tablet extended release 24hr 250 mg PO HS lamotrigine 200 mg tablet extended release 24hr 200 mg PO HS duloxetine 20 mg capsule,delayed release(DR/EC) 40 mg PO DAILY betamethasone dipropionate 0.05 % cream 1 applic topical Q12H PRN meclizine 12.5 mg tablet 12.5 mg PO TID PRN Gvoke PFS 1-Pack Syringe 1 mg/0.2 mL syringe 1 mg subcut DAILY PRN ropinirole 0.5 mg tablet 1 mg PO HS acetaminophen [Tylenol Extra Strength] 500 mg tablet 500 mg PO Q6H PRN atorvastatin 10 mg tablet 10 mg PO QPM ascorbic acid (vitamin C) 500 mg tablet 500 mg PO DAILY albuterol sulfate 2.5 mg /3 mL (0.083 %) solution for nebulization 2.5 mg inhalation Q4H PRN amlodipine 5 mg tablet 5 mg PO DAILY ferrous sulfate [Feosol] 325 mg (65 mg iron) tablet 325 mg PO DAILY cholecalciferol (vitamin D3) 25 mcg (1,000 unit) tablet 50 mcg PO DAILY insulin lispro [Admelog U-100 Insulin lispro] 100 unit/mL solution 50 - 60 unit subcut DAILY Rx Instructions: SUBQ PUMP sennosides-docusate sodium [Senna-S] 8.6-50 mg tablet 1 - 4 tab-cap PO BID PRN (Reason: constipation) Qty: 60 0RF Rx Instructions: Hold medication if experiencing loose stools. celecoxib 100 mg capsule 100 mg PO BID Qty: 60 0RF hydroxyzine pamoate 25 mg capsule 25 - 50 mg PO Q6H PRNQty: 60 0RF aspirin [Adult Low Dose Aspirin] 81 mg tablet,delayed release (DR/EC) 81 mg PO BID 30 Days Qty: 60 0RF lacosamide [Vimpat] 100 mg tablet 100 mg PO BID 30 Days Qty: 60 0RF Discontinued pregabalin [Lyrica] 150 mg capsule 150 mg PO BID zolpidem 5 mg tablet 5 mg PO HS PRN Discharge Orders: Discharge Order (Routine); Ordered 09/12/24 Ordered By: Boo Barun Consulting provider completed their portion of the discharge: Yes Additional Instructions: 1. Cefazolin 2 g IV every 8 hours with last dose administered at the end of the day on 17 October 2024; 2. PICC cares while on IV cefazolin; 3. Wound vac: keep in place for 7 days. Check routinely throughout the day; monitor drainage. May shower with current bandage in place. Re-seal the bandaging if needed. 4. Glucose monitoring with Continuous glucose monitoring device; 5. Insulin pump for glucose management - patient will manage her own pump; 6. Needs follow-up with Dr. Padmini Sena, Infectious Disease specialist, via Telehealth, [facility], in 3-5 weeks; 7. Orthopedic surgery follow-up per her orthopedic surgeon; 8. On-going primary care per clinician at [facility] and her primary care physician, Dr. Parisi, at [place], [place]; 9. Weekly labs with results to Dr. Sena, CBC, creatinine, ALT, CRP until completion of IV cefazolin. Wound: ? No immersing wound in water; showering okay. ? Sutures are under the skin, will dissolve. ? Call our office with any redness that streaks, excessive drainage from the wound/wound vac. - Soft dressings including webril and angelia may come off 09/14/24. Ice/Elevate: ? Ice as needed for swelling and discomfort; elevate extremity frequently above the heart. Motion/Exercise: ? Weight bear as tolerated operative extremity while in the knee immobilizer (walker/cane for ambulation assistance as needed). May come out of the knee immobilizer for sitting, sleeping, range of motion. ? Per PT/OT. ? Straight leg raises daily: 1-2 sets of 10 reps Pain Medications: ? Oral narcotic as prescribed. Wean as tolerated. Blood Clot Prevention (DVT): ? Medication: 81 mg aspirin by mouth twice daily (1 month) Dental: ? No elective dental work for 3 months post-op. If there is an urgent/emergent dental need, contact our office for an antibiotic prescription. Smoking/Alcohol: ? Do not smoke; do no drinking alcohol especially when taking postoperative oral narcotic medication Seek Care from you Primary Care Provider if you experience the following issues in the postoperative phase and beyond: ? Bacterial infections such as: pneumonia, bacterial skin infection (cellulitis), UTI, high fever, chills unrelated to the operative body part - call your primary care physician urgently for treatment in hopes to protect your health and the metal implant. Referrals: ? PT, OT per patient preference - evaluate & treat total knee arthroplasty protocol (gait training, ROM, ADLs). Again, okay to weightbear as long as the knee immobilizer is in place during this. Vaccines: ? No vaccines until 4-6 weeks postop Follow up: ? PA-C visit in 1 week (ideally 09/17/24) ? Ortho surgeon follow-up in 6 weeks; repeat radiographs three views operative knee If there are any acute concerns regarding your surgery, please call our orthopedic clinic ([phone]) Activity Level: Activity as Tolerated Discharge Diet: Heart Healthy (2 gm sodium, low fat) Follow Up Appointments: David Parisi MD [Primary Care Provider] - Forms: MyHealth Info Instructions Wound Care: Wound Vac - see orders from surgeon Admit to: SNF Discharge Potential: Good Length of Stay: 30-90 days Can use facility standing orders?: Yes Code Status: Full Code Rehab Potential: Good Therapy: Physical Therapy and Occupational Therapy Therapy Orders: Evaluate and Treat, Gait Training, Knee ROM, ADL and Total Knee Protocol Therapy Orders Additional Information: Weightbear with knee immobilizer in place Oxygen: No Urinary Catheter: No Orders are good >30 days: Yes Signature: Boo Braun
--- NOTE | 2024-09-13 12:17 | PM.ORPN ---
Subjective Subjective Date Seen: 09/12/24 Principal diagnosis: POD 1 left TKA I&D, antibiotic bead placement, poly exchange Interval history: Patient reports doing well. There was postop concerns for possible seizure activity; however, patient does not feel that she had a seizure but rather restless leg syndrome. She feels fine, no cognitive or memory issues. Pain managed with scheduled and PRN medications, ice. DVT prophylaxis: Lovenox and 81 mg aspirin by mouth twice daily while in the hospital, SCDs, walking with knee immobilizer in place. Denies fevers, chills, aches, N/V, CP, SOB/FLORES, or lightheadedness. We will be discharging to SNF today. Ortho Exam Narrative Exam Narrative: -Patient appears comfortable; no apparent acute distress -Alert and oriented times 3 -Operative knee mildly swollen; soft tissues supple; no ecchymosis; no erythematous streaking Warmth appropriate. Lázaro bandaging Webril in place. Knee immobilizer in place. -Surgical dressing clean, dry, intact; no drainage. Wound VAC in place with no significant drainage. Wound VAC seal is intact. -Bilateral calfs soft; no significant swelling, edema, tenderness, erythema, discoloration, warmth, or palpable cords -2+ DP/PT pulses, intact dermatomes and myotomes distally (5/5 strength) Assessment and Plan Assessment and plan (1) Postoperative wound infection: Problem details: -As listed in postoperative wound dehiscence section Status: Suspected (2) Postoperative wound dehiscence: Problem details: -S/P LTKA 08/14/24, s/p Left knee incision and drainage of deep abscess/deep TKA infection & debridement 09/06/24. Left knee antibiotic bead was placed for local elution of antibiotics. -Weight bear as tolerated operative extremity in knee immobilizer. Knee immobilizer should be worn at all times. -orthopedics expect return to the operating room on the 09/11/2024. - 09/07: Intraoperative gram stain: G+ cocci; wound culture pending. Orthopedic started wide spectrum IV antibiotics: Vancomycin and Zosyn and they anticipate need for PICC line and long-term IV antibiotic use and eventually transition oral antibiotics in addition to anticipating the need for infectious disease consultation once sensitivities return. 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 Change antibiotic regimen to IV ancef 2 g q8h. ID agrees with plan to have patient on IV Ancef every 8 hours for 6 weeks. PICC line likely tomorrow. Pain management adequate, continue current regimen. - 09/09: I spoke with Dr. Padmini Wallace from Infectious Disease at [place] regarding antibiotic choice and length for treatment of postoperative wound infection of a total knee arthroplasty. She agreed with Ancef as the antibiotic of choice and recommended 6 week course. She recommended placing a PICC line at this time. I also spoke with her about the patchy infiltrates and or coarse lung sounds, noting that her white count is within normal limits and she did not have any fevers. She recommended I diuresis and see how she does overnight before starting other antibiotics to cover for possible pneumonia, especially since she has been on Zosyn and vancomycin through the weekend, which would make pneumonia less likely. - 09/[address] Wallace again today. She contacted me regarding possibly adding rifampin, but we both noted that the patient takes lamotrigine for seizure disorder which could interact with rifampin. She is going to call tomorrow and do a formal consult to give recommendations for long-term antibiotic coverage. Continue IV Ancef at the high dose. - 09/12/2024: On cefazolin 2 g IV q.8 hours until the end of the day on 10/17/2023. Will have follow-up with Dr. Austin via [employer] before completion of the cefazolin IV. Decision was made to not start rifampin due to underlying seizure disorder and medication she takes to treat this. Status: Acute (3) Seizure disorder: Problem details: -previously well controlled, last seizure was in May 2022. -Continue lamotrigine, and lacosamide. -seizure precautions Status: Chronic (4) Type I diabetes mellitus: Problem details: -insulin pump -A1C 7.1 on 08/27/24 Status: Acute (5) Insulin pump in place: Status: Acute (6) Restless leg syndrome: Problem details: - immediately postoperatively on 09/11/2024, patient had uncontrolled restless leg syndrome which she gets from time to time. Initially the thought was that this might represent a breakthrough seizure. Over time it was apparent that she was not having seizures as she was able to interact and talk sensibly. Status: Acute (7) Hypertension: Problem details: Status: Chronic (8) Constipation: Problem details: - Likely secondary to opioid use for recent surgery and infection. - Start scheduled Senna S - Miralax as needed Status: Acute (9) Dyslipidemia: Status: Chronic (10) Obesity: Problem details: BMI 38.9 Status: Acute Plan - Complete 23 hour perioperative antibiotics. - PT/OT consult for education and assistance. - Social work consult for discharge planning - Prescribed analgesics as needed - DVT prophylaxis: 81 mg aspirin by mouth twice daily, walking with knee immobilizer in place, and SCDs - Anticipation is for discharge to SNF today 09/12/2024 if the patient remains medically stable, pain is controlled, and they are safe with mobilization.
== END 2024-09-12 14:26 | DRG 856 ==
LOC: OR 18:22 → MEDSURG 18:22
PROVIDERS: Family Medicine; Student in an Organized Health Care Education/Training Program; Admitting Provider Orthopaedic Surgery Sports Medicine; PCP Surgery; Visit Provider Orthopaedic Surgery Sports Medicine
PROC: 0S9D0ZX Drainage of Left Knee Joint, Open Approach, Diagnostic (ICD-10-PCS; principal; 2024-09-06 14:30)
PROC: 0S9D0ZZ Drainage of Left Knee Joint, Open Approach (ICD-10-PCS; principal; 2024-09-11 15:00)
DX: T81.42XA Infection following a procedure, deep incisional surgical site, initial encounter (principal); J81.0 Acute pulmonary edema; T81.328A Disruption or dehiscence of closure of other specified internal operation (surgical) wound, initial encounter; I47.20 Ventricular tachycardia, unspecified; N17.9 Acute kidney failure, unspecified; M00.062 Staphylococcal arthritis, left knee; B95.7 Other staphylococcus as the cause of diseases classified elsewhere; B96.89 Other specified bacterial agents as the cause of diseases classified elsewhere; Z96.41 Presence of insulin pump (external) (internal); E10.65 Type 1 diabetes mellitus with hyperglycemia; I10 Essential (primary) hypertension; G25.81 Restless legs syndrome; K90.0 Celiac disease; G40.909 Epilepsy, unspecified, not intractable, without status epilepticus; M17.12 Unilateral primary osteoarthritis, left knee; Z96.652 Presence of left artificial knee joint; K59.03 Drug induced constipation; E66.9 Obesity, unspecified; Z68.38 Body mass index [BMI] 38.0-38.9, adult; F32.A Depression, unspecified; E03.9 Hypothyroidism, unspecified; E78.5 Hyperlipidemia, unspecified
CPT/HCPCS: 01320; 01400; 36415; 36573; 71045; 71046; 71275; 80048; 80053; 82330; 82565; 82803; 82962; 83605; 83735; 83880; 84132; 84295; 84484; 84520; 85025; 85379; 87070; 87075; 87186; 87205; 87631; 93005; 94640; 94761; 97110; 97116; 97161; 97165; 97530; 97535; A4221; A9270; C1713; C1751; C1776; J0330; J0690; J1100; J1171; J1200; J1650; J1815; J1940; J2250; J2371; J2405; J2543; J2704; J3010; J3370; J3372; J3490; J7030; J7042; J7050; J7120; Q9967

== ENCOUNTER 2024-09-12 14:06 | Outpatient (CLI) | payer MEDICARE, MEDICAID, SELFPAY | END 2024-09-12 14:07 | disposition home or self-care (01) | PROVIDERS: PCP Surgery; Visit Provider Family Medicine | DX: M79.605 Pain in left leg (principal); Z99.3 Dependence on wheelchair | CPT/HCPCS: A0425; A0428 ==

== ENCOUNTER 2024-10-08 14:32 | Outpatient (REF) | payer MEDICARE, MEDICAID, SELFPAY ==
[2024-10-08 15:37] LABS: Basophils Absolute Auto 0.04 K/uL (0.00-0.30); Basophils Percent Auto 0.5 % (0.0-3.0); Eosinophils Absolute Auto 0.57 K/uL (0.00-0.50); Hematocrit 32.3 % (33.0-51.0); Hemoglobin* 9.6 gm/dL (12.0-16.0); Immature Granulocytes Abs Auto 0.02 K/uL (0.00-0.30); Immature Granulocytes Pct Auto 0.2 %; Lymphocytes Percent Auto 14.4 % (20-44); Mean Corpuscular HGB Conc 30 gm/dL (32-36); Mean Corpuscular Hemoglobin 28 pg (26-34); Mean Corpuscular Volume 95 fL (80-100); Neutrophils Absolute Auto 5.68 K/uL (1.7-7.0); Neutrophils Percent Auto 69.9 % (42.0-72.0); Platelet Count* 276 K/uL (140-440); RDW Coefficient of Variation % 15.4 % (11.5-15.5); White Blood Count* 8.13 K/uL (4.50-11.00)
[2024-10-08 15:42] LABS: Slide Review Reflex No
[2024-10-08 16:16] LABS: Creatinine* 0.9 mg/dL (0.5-1.5); Estimated Glomerular Filt Rate 76 ml/min
[2024-10-08 16:24] LABS: Alanine Aminotransferase* 8 U/L (4-35)
[2024-10-08 16:28] LABS: C Reactive Protein* 3.1 mg/dL (0.5-1.0)
== END 2024-10-08 14:33 | disposition home or self-care (01) ==
LOC: NPINS 14:32
PROVIDERS: PCP Surgery; Visit Provider Clinical Nurse Specialist
DX: I10 Essential (primary) hypertension (principal); D64.9 Anemia, unspecified
CPT/HCPCS: 80048; 82565; 84460; 85025; 85027; 86140

== ENCOUNTER 2024-10-18 09:00 | Outpatient (RCR) | payer MEDICARE, MEDICAID, SELFPAY ==
[2024-10-08 15:59] LABS: Chloride* 102 mmol/L (96-114); Potassium* 4.5 mmol/L (3.6-5.1); Sodium* 139 mmol/L (135-149)
[2024-10-08 16:02] LABS: Anion Gap 7 mEq/L (7-15); Blood Urea Nitrogen* 28 mg/dL (7-30); Calcium* 9.2 mg/dL (8.4-10.6); Carbon Dioxide* 30 mmol/L (20-32); Creatinine* 0.9 mg/dL (0.5-1.5); Estimated Glomerular Filt Rate 76 ml/min; Glucose* 232 mg/dL (60-115)
[2024-10-08 16:05] LABS: Hematocrit 32.3 % (33.0-51.0); Hemoglobin* 9.6 gm/dL (12.0-16.0); Mean Corpuscular HGB Conc 30 gm/dL (32-36); Mean Corpuscular Hemoglobin 28 pg (26-34); Mean Corpuscular Volume 95 fL (80-100); Red Blood Count 3.40 m/uL (4.00-5.20); Slide Review Reflex No; White Blood Count* 8.13 K/uL (4.50-11.00)
[2024-10-15 09:46] LABS: Hematocrit 32.7 % (33.0-51.0); Hemoglobin* 9.8 gm/dL (12.0-16.0); Immature Granulocytes Abs Auto 0.00 K/uL (0.00-0.30); Immature Granulocytes Pct Auto 0.0 %; Lymphocytes Absolute Auto 1.20 K/uL (0.90-2.90); Mean Corpuscular HGB Conc 30 gm/dL (32-36); Mean Corpuscular Hemoglobin 28 pg (26-34); Mean Corpuscular Volume 93 fL (80-100); RDW Coefficient of Variation % 14.5 % (11.5-15.5); Red Blood Count 3.50 m/uL (4.00-5.20); White Blood Count* 8.31 K/uL (4.50-11.00)
[2024-10-15 09:52] LABS: Slide Review Reflex No
[2024-10-15 10:03] LABS: Albumin* 3.7 g/dL (3.3-5.0); Chloride* 104 mmol/L (96-114); Potassium* 4.3 mmol/L (3.6-5.1); Sodium* 140 mmol/L (135-149)
[2024-10-15 10:05] LABS: Creatinine* 0.8 mg/dL (0.5-1.5); Estimated Glomerular Filt Rate 88 ml/min
[2024-10-15 10:06] LABS: Alanine Aminotransferase* 5 U/L (4-35); Alkaline Phosphatase* 109 U/L (40-150); Anion Gap 7 mEq/L (7-15); Aspartate Amino Transferase* 20 U/L (12-35); Bilirubin Total* 0.2 mg/dL (0.1-1.5); Blood Urea Nitrogen* 33 mg/dL (7-30); Carbon Dioxide* 29 mmol/L (20-32); Glucose* 178 mg/dL (60-115); Total Protein* 7.4 g/dL (6.0-8.3)
[2024-10-15 10:07] LABS: Calcium* 9.2 mg/dL (8.4-10.6)
--- NOTE | 2024-10-15 13:13 | ONC.NURNOTE ---
Lab Results faxed to Dr. Sena, patient asking about switching to PO antibiotics once IV is done. Note made on fax asking them to call patient about PO antibiotics.
--- NOTE | 2024-10-18 15:59 | ONC.NURNOTE ---
Picc line dc'd at 0925 intact. Insertion site with some irritation from dressing; no bleeding or drainage with initial picc removal or after 30 min supine. Wrapped with gauze, tegaderm, coban and pt's previous sleeve; pt states it is snug but not overly tight.
== END 2025-04-06 23:59 | disposition home or self-care (01) ==
LOC: CCIC 09:00
PROVIDERS: Internal Medicine Infectious Disease; PCP Surgery; Referring Provider Surgery; Visit Provider Clinical Nurse Specialist
DX: D64.9 Anemia, unspecified (principal)
CPT/HCPCS: 36415; 36592; 80048; 80053; 82565; 84460; 85025; 85027; 86140; 99211; A4221

== ENCOUNTER 2024-11-19 10:45 | Outpatient (RCR) | payer MEDICARE, MEDICAID, SELFPAY ==
--- NOTE | 2024-11-19 11:17 | PT.OPDNX ---
PT [facility] Daily Note PT [facility] Daily Note Start: 10/31/24 10:12 Freq: Status: Active Protocol: Document 11/19/24 09:20 NLR (Rec: 11/19/24 11:16 NLR [id number]) E-signed By Tosin Mclaughlin DPT PT OP Daily Progress Note Visit Information Note Type Discharge Note Visit Number 3 Insurance Information Recert Due Date 10/31/24 Insurance Name Medicare B,Medicaid Medical Diagnosis Z96.652 Left TKA presence T81.49XA Post procedural infection Treating Diagnosis M25.562 Left knee pain M25.662 Left knee stiffness Imaging Report Information 10/22/24 Xray: Weightbearing AP, Lateral and [place] views of the left knee were obtained today from [facility], were ordered and reviewed by me, and show left TKA implants in an appropriate , stable position. No evidence of loosening or failure. Referring MD Skyler Renner MD Subjective Preferred Name LAYO Rodriguez arrives for follow up stating she is doing great. She no longer has pain and is doing everything she wants to be doing. She has three stairs at home that she is able to do independently. Her sister went to [place] so she is back by herself. She states she is eager to be done with all of the appointments . Pain Comments 0-10/11 Date of Last Physician Visit 10/22/24 Date of Next Physician Visit 02/11/25 Date of Surgery (If applicable) 08/14/24 Precautions Treatment Precautions/Contraindications 08/14/24 L TKA, 09/06/24 I/D secondary to infection, I/D secondary to infection PMH: Seizure disorder, obesity , DM, spinal stenosis, lumbar disk herniation (remote), right hip pain, decreased eyesight Weight Bearing Status Full Weight Bearing Home Exercise Home Exercise Comments Reviewed and progressed HEP. PDF was printed for patient. Access Code: [email or web address] URL: [email or web address] Date: 11/19/2024 Prepared by: Tosin Frazier Exercises - Active Straight Leg Raise with Quad Set - 3 x daily - 7 x weekly - 10 reps - 2-3 second hold - strength exercise type - Seated Knee Flexion Stretch - 3 x daily - 7 x weekly - 10 reps - 5 second hold - range of motion/stretch exercise type - Seated Passive Knee Extension - 3 x daily - 7 x weekly - 1 reps - 5-15 minutes hold - strength exercise type - Seated Hamstring Curl with Anchored Resistance - 3 x daily - 7 x weekly - 2 sets - 10 reps - 3-5 seconds hold - strength exercise type - Sitting Knee Extension with Resistance - 3 x daily - 7 x weekly - 2 sets - 10 reps - 3- 5 second hold - strength exercise type - Seated Knee Lifts with Resistance - 3 x daily - 7 x weekly - 2 sets - 10 reps - 2 -3 second hold - strength exercise type - Seated Hip Abduction with Resistance - 3 x daily - 7 x weekly - 2 sets - 10 reps - 2- 3 seconds hold - strength exercise type Objective Other/Pertinent Objective HAND DOM: RIGHT ROM: Right knee 0-115, L knee 5-105 (DC 0-115) STRENGTH: R knee grossly 4/5, L knee grossly 4-/5 (DC 4/5) POSTURE: forward rounded shoulders, lumbar hyperlordosis. PALPATION: Tender to palpation left medial joint line soft tissue EDEMA: Mild FUNCTIONAL: Able to sit 30 minutes. Able to stand 10 minutes. Able to walk 10 minutes. GAIT: Antalgic left, uses a cane FLEXIBILITY: Hypoflexibility noted at hamstrings, gastrocnemius/soleus. FOOTWEAR: Patient arrives wearing Sketchers that does provide adequate medial arch support. They do not wear supportive footwear in the house. Patient Instructed in Risks/Benefits Yes Therapeutic Exercise Therapeutic Exercise Minutes (minutes) 25 Therapeutic Exercise: To Restore - NuStep 10 minutes, seat 5 on Functional Status level 2 Reviewed and made final modifications to HEP: - Active Straight Leg Raise with Quad Set - Seated Knee Flexion Stretch - Seated Passive Knee Extension - Seated Hamstring Curl with Anchored Resistance (red) - Sitting Knee Extension with Resistance (red) - Seated Knee Lifts with Resistance (red) - Seated Hip Abduction with Resistance (red) Treatment Minutes Timed Code Treatment Minutes 25 Total Treatment Time 25 Billing Units Therapeutic Exercise Units 2 Assessment/Impression Assessment/Impression Layo is now pain free, independent without gait aid and able to do her stairs in her home independently. Her sister has left and she is now at home alone and functioning independently. She states she does her HEP regularly, has no pain and is eager to be done with her appointments. Final modifications made to HEP, she offers no additional questions at this time. Patient is ready for discharge . Primary Functional Limitations No difficulty sitting, sleeping or walking. Plan of Care Physical Therapy Goals 1. Patient will be independent with home exercise program as instructed, modified and progressed by physical therapist in order to be independently and actively participating in their rehabilitation and return to prior level of function. Goal to be achieved by 01/24/2025. ACHIEVED 2. Patient will demonstrate ability to walk for 30 minutes (s) without significant increase in pain greater than 2/10 to allow patient to be able to safely and independently return to participation in desired level of function with daily activities such going to appointments, grocery shopping , walking for exercise without pain or difficulty. Goal to be achieved by 01/24/2025. ACHIEVED 3. Patient will ascend/descend 2 full flight(s) of stairs with [id number] pattern without significant increase in difficulty or pain over 2/ 10 allowing for safe and independent mobility through their home/work environment. Goal to be achieved by 2024. ACHIEVED Daily Plan of Care Discharge Daily Plan of Care Comments HEP Equipment Information Equipment Information Two pieces of red theraband. Discharge Note Discharge Summary Layo is now pain free, independent without gait aid and able to do her stairs in her home independently. Her sister has left and she is now at home alone and functioning independently. She states she does her HEP regularly, has no pain and is eager to be done with her appointments. Final modifications made to HEP, she offers no additional questions at this time. Patient is ready for discharge . Date of First Visit for Therapy 10/31/24 Date of Last Visit for Therapy 11/19/24 Initial Primary Functional Limitations Difficulty sitting more than 30 minutes, difficulty sleeping at night, difficulty walking more than 10 minutes, difficulty standing. Initial Pain Level 4-9/10 Pain Level at Discharge 0-1/10 Recommendations/Reason for Discharge Met All Therapy Goals Discharge Instructions HEP Thank You For This Referral Thank you for this physical therapy referral. Discharge is attached. Signature not required. Contact us if you have any questions or concerns by phone at [phone] or by fax at [phone] attn: Tosin Mclaughlin, PT, DPT.
== END 2024-12-05 09:33 | disposition home or self-care (01) ==
PROVIDERS: PCP Surgery; Visit Provider Physician Assistant Surgical
DX: T81.49XA Infection following a procedure, other surgical site, initial encounter (principal); Z96.652 Presence of left artificial knee joint; M25.562 Pain in left knee; M25.662 Stiffness of left knee, not elsewhere classified; Z51.89 Encounter for other specified aftercare
CPT/HCPCS: 97110; 97140; 97162; 97535

== ENCOUNTER 2024-12-19 07:41 | Outpatient (CLI) | payer MEDICARE, MEDICAID, SELFPAY | END 2024-12-19 07:42 | disposition home or self-care (01) | LOC: AMB 12-20 09:30 | PROVIDERS: PCP Surgery; Visit Provider Family Medicine | DX: R42 Dizziness and giddiness (principal); R11.2 Nausea with vomiting, unspecified | CPT/HCPCS: A0425; A0427 ==

== ENCOUNTER 2024-12-19 08:23 | Observation (INO) | payer MEDICARE, MEDICAID, SELFPAY ==
[2024-12-19] VITALS (21 sets, daily range): BP systolic 108–155; BP diastolic 49–85; PULSE 79–92; RESP 10–18; TEMP 36.2–37.2; O2SAT 87–99; BMI 33.8; BMI 34.4
--- OUTSIDE RECORDS SUMMARY | 2024-12-19 08:25 | XMS_ITS | Encounter Summary ---
Author Organization [facility] Address [address] [place] [address] Care Team Providers Care Radio Television Announcer Name Role Phone David Parisi MD Primary Care Provider [phone] Uriel Mercedes MD Unavailable Brandon Parikh MD Unavailable Reason for Visit * Reason Onset Date Comments Appointment 09/18/2024 Encounter Details Date Type Department Care Team (Late st Contact Info) Description 09/18/2024 Telephone [facility] [place] 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 Please call patient to schedule. Could we send this information to you in [facility] or would you prefer to receive a phone call?: Patient would prefer a phone call Okay to leave a detailed message?: Yes at Cell number on file: Telephone Information: R MECHANIC documented in this encounter Plan of Treatment Upcoming Encounters Date Type Department Care Team (Late st Contact Info) Description 05/29/2025 9:40 AM CDT Ancillary Procedure [facility] [address] 1st [place] [phone] Uriel Mercedes MD [address] [place] [phone] 05/29/2025 10:40 AM CDT Office Visit [facility] [address] 4th [place] [phone] Uriel Mercedes MD [address] [place] [address] documented as of this encounter Visit Diagnoses Not on filedocumented in this encounter Care Teams Radio Television Announcer Relationship Specialty Start Date End Date David Parisi MD [address] [place] [address] PCP - General 03/16/23 Uriel Mercedes MD [address] [place] [address] Assigned Musculoskeletal Provider 03/25/23 Brandon Parikh MD [address] [place], [place] [phone] Assigned Neuroscience Provider 04/29/23 11/23/24 documented as of this encounter
--- OUTSIDE RECORDS SUMMARY | 2024-12-19 08:25 | XMS_ITS | Encounter Summary ---
Author Organization [facility] Address [address] [place] [address] Care Team Providers Care Agricultural Lender Name Role Phone David Parisi MD Primary Care Provider [phone] Uriel Mercedes MD Unavailable Reason for Visit * Reason Comments RECHECK DOS 03-20-24 Fusion L umbar Encounter Details Date Type Department Care Team (Late st Contact Info) Description 12/05/2024 8:40 AM AUTOMATIC FOLDER SEAMER Office Visit [facility] [place] [id number] [facility] [address] [place] [address] Uriel Mercedes MD [address] [place], [place] [phone] S/P lumbar spinal fusion (Primary Dx) Social History Tobacco Use Types Packs/Day Years [...] on file 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 Spine Surgical Hx 03/18/2010 - 2-level ACDF with plate fixation C5-C7; use of structural allograft packed with Vitosssynthetic bone graft + BMA (Sinicropi, F[facility] Ridges) for stenosis, R HNP C6-7. [Implants: Vivek Reflex hybrid plate; 9mm machine- threaded cortical allograft bone dowel x2]. 02/03/2011 - PISF C5-C7; use of Infuse BMP and crushed cancellous allograft (Sinicropi, F[facility] Ridges) for pseudarthrosis 04/26/2016 - TLIF (R facetectomy) with laminectomy L2-3; use of allograft (Mehbod, ANW) for stenosis with lateral listhesis. [Implants: Vivek Marilee 3 screw system, UNILIF PEEK cage]. 06/18/2019 - TLIF (L facetectomy) with laminectomy L3-4; rev PISF L2-L4; use of allograft (Mehbod, ANW) for adj segment degeneration/stenosis. [Implants: Vivek Marilee 3 screw system, UNILIF PEEK cage]. 01/14/2022 - TLIF (R facetectomy) with laminectomy L4-5; rev PISF L2-L5; use of allograft (Mehbod, ANW) for adj segment degeneration/stenosis. [Implants: Vivek Marilee 3 screw system, UNILIF PEEK cage]. 02/22/2022 - Rev R-sided decompression, repositioning of interbody cage L4-5; revision of bilat L5 screws (Mehbod, ANW) for cage backout of loosening of L5 screws. [Implants: [place] Marilee 3 screw system, UNILIF PEEK cage]. 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 [Implants: BiBCOMtronic Solera and Ballast screw system, 5.5 mm CoCr rods x4, including 1 UNID cristian; Capstone Control PTC cages; SI-Bone Avery screws x2]. 03/20/2024 - Revision PISF [id number] (proximal extension of previously placed L2 screws up to T12 with new screws bilateral T12 and L1 and connecting new rods to old ones), TLIF-SPO L1-2, use of infuse BMP, local autograft and crushed cancellous allograft (Sembrano) for large central suprajacent lateral central disc herniation with compression of the cauda equina at L1-2. [Implants: BiBCOMtronic Solera screw system, 5.5 mm CoCr rods manual x2 w axial end-end connectors, Medtronic capstone control PEEK cage 8 x 22 mm 0 degree lordosis x 1]. Bone Health Hx No previous fractures. No previous DEXA. No previous diagnosis of osteopenia/- porosis. Opportunistic BMD measurement at L1: axial = 179 HU, sagittal = 209 HU on 10/19/[address] (indicating normal bone density) Reason for Visit: Chief Complaint Patient presents with RECHECK DOS 03-20-24 Fusion Lumbar S> 9 months postop Unaccompanied Reports that she is overall doing well. She did undergo left TKA in August at [place] which subsequently got infected and required 2 surgeries. She was in rehab for this for some time and had a bad experience there. She is currently still on oral antibiotics for treatment of this infection; is going to be on it for 6 to 12 months supposedly. Reports that her back pain is minimal, improved after knee replacement. No other complaints or concerns today. Oswestry (CHELA) Questionnaire 12/05/2024 8:52 AM OSWESTRY DISABILITY INDEX Count 9 Sum 3 Oswestry Score (%) 6.67 % Patient-reported S/p Rev PISF L2-pelvis; TLIF-SPO L4-5,L5-S1 (06/02/23): CHELA Preop 24.44% 6wk 16% 3mo 13.33% 6mo 8% 8mo 32% 9mo 51.11% S/p Rev PISF [id number]; TLIF-SPO L1-2 (03/20/24): CHELA preop 51.11% 6wk 8% 3mo 15.56% 9mo 6.67% Visual Analog Pain Scale Back Pain Scale 0-10: 0 Right leg pain: 0 Left leg pain: 0 Neck Pain Scale 0-10: 0 Right arm pain: 0 Left arm pain: 0 PROMIS-10 Scores Global Mental Health Score: (Patient-Rptd) (P) 11 Global Physical Health Score: (Patient-Rptd) (P) 11 PROMIS TOTAL - SUBSCORES: (Patient-Rptd) (P) 22 O> Alert, oriented x 3, cooperative. Not in CP distress. Ambulates independently, no antalgia or ataxia. Well-healed surgical incision 5/5 bilateral hip flexion, knee extension, dorsiflexion, plantarflexion. Imagin12/05/2024 EOS full body standing AP/lateral view x-rays: Left TKA hardware present. Stable appearance of posterior fusion hardware [id number] without evidence of hardware failure or fracture. Mild increase in T11-12 disc degenerative changes compared to previous images. A> 54/F 1. 9 months s/p Revision PISF [id number] for large central suprajacent lateral central disc herniation with compression of the cauda equina at L1-2; progressing as expected 2. S/p multiple lumbar spine surgeries ([id number], all by Dr. Mata, [facility]), culminating in L2-L5 TLIF-PISF. 3. S/p AP fusion C5-C7 (2009, 2010 Dr. Tirado), with presumed solid arthrodesis. 4. Medical co-morbidities, including DM type 1 (on insulin), absence seizure disorder (on medication), Class III obesity (BMI 37.83 as of 12/05/24). P> Reviewed today's XR images with patient which demonstrates stable fusion construct, some mild increased degeneration at the level above. Fortunately, patient is doing very well in terms of her back and overall recovery. Can continue with activities as tolerated. Follow-up in [address] to assess fusion. Nlisa Galeas PA-C Attestation: I (Dr. Uriel Mercedes - Spine Surgeon) have personally evaluated patient with DEVON Galeas, and agree with findings and plan outlined in the note, which I also edited. I discussed at length with the patient/family, explained the nature of spinal condition, and formulated workup and/or treatment plan together. All questions were answered to the best of my ability and to patient's apparent satisfaction. >15 minutes spent on the date of the encounter doing chart review/review of outside records/review of test results/interpretation of tests/patient visit/documentation/discussion with other provider(s)/discussion with patient and family. Uriel Mercedes MD Automotive Brake Adjuster Orthopaedic Spine Surgery Dept Orthopaedic Surgery, [facility] [phone] office, pager [email or web address] documented in this encounter Plan of Treatment Upcoming Encounters Date Type Department Care Team (Late st Contact Info) Description 05/29/2025 9:40 AM CDT Ancillary Procedure [facility] [address] 1st [place] [address] Uriel Mercedes MD [address] [place] [phone] 05/29/2025 10:40 AM CDT Office Visit [facility] [address] 4th [place] [phone] Uriel Mercedes MD [address] [place] [phone] documented as of this encounter Visit Diagnoses Diagnosis S/P lumbar spinal fusion- Primary Arthrodesis status documented in this encounter Care Teams Agricultural Lender Relationship Specialty Start Date End Date David Parisi MD [address] [place] [phone] PCP - General 03/16/23 Uriel Mercedes MD [address] [place] [phone] Assigned Musculoskeletal Provider 03/25/23 documented as of this encounter
--- OUTSIDE RECORDS SUMMARY | 2024-12-19 08:25 | XMS_ITS | Encounter Summary ---
Author Organization [facility] Address [address] [place] [id number] Care Team Providers Care Warranty Coordinator Name Role Phone David Parisi MD Primary Care Provider [phone] Uriel Mercedes MD Unavailable [phone] Reason for Visit * Diagnostic Imaging XR (Routine) - Pending Review Specialty Diagnoses / Procedures Referred By Contac t Referred To Contact Radiology. Diagnoses S/P spinal fusion Herniated lumbar intervertebral disc History of fusion of cervical spine Status post lumbar spinal fusion Procedures XR EOS Total Body Uriel Mercedes MD [address] [place] [id number] Phone: tel: fax: Referral ID Status Reason Start Date Expiration Date V isits Requested Visits Authorized [id number] Pending Review 11/13/2024 11/13/2025 1 1 Encounter Details Date Type Department Care Team (Latest Contact Info) Description 12/05/2024 8:20 AM INSURANCE WRITER Ancillary Procedure [facility] [place] [address] [facility] 1st [place] [phone] Uriel Mercedes MD [address] [place] [address] [phone] S/P spinal fusion; Herniated lumbar intervertebral disc; History of fusion of cervical spine; Status post lumbar spinal fusion Social History Tobacco Use Types Packs/Day Years [...] on file Legal Sex Female 5:08 AM INSURANCE WRITER Gender Identity Not on file Sexual Orientation Not on file documented as of this encounter Plan of Treatment Upcoming Encounters Date Type Department Care Team (Late st Contact Info) Description 05/29/2025 9:40 AM CDT Ancillary Procedure [facility] [address] 1st [place] [phone] Uriel Mercedes MD [address] [place] [id number] 05/29/2025 10:40 AM CDT Office Visit [facility] [address] 4th [place] [phone] Uriel Mercedes MD [address] [place] [phone] documented as of this encounter Procedures Procedure Name Priority Date/Time Associated Diagnosis Comments XR EOS TOTAL BODY Routine 12/05/2024 9:1 8 AM INSURANCE WRITER S/P spinal fusion Herniated lumbar intervertebral disc History of fusion of cervical spine Status post lumbar spinal fusion documented in this encounter Results * XR EOS Total Body (12/05/2024 9:18 AM INSURANCE WRITER) Anatomical Region Laterality Modality Spine, Lower Extremity Computed Radiography Impressions 12/05/2024 1:22 PM INSURANCE WRITER Impression: 1. Stable ACDF and posterior fusion at C5-C7 and posterior T12 the pelvis instrument fusion without evidence of hardware complication. Slightly increased opposing endplate degenerative changes at T11-T12. 2. No global sagittal or coronal imbalance. 3. Weight bearing axis as detailed above. EBONY WRIGHT MD Narrative 12/05/2024 1:22 PM INSURANCE WRITER Exam: Full body radiographs using EOS History: S/P spinal fusion; Herniated lumbar intervertebral disc; History of fusion of cervical spine; Status post lumbar spinal fusion Techniques: AP and lateral images of full body and secondary images of AP and lateral views of spine were submitted for interpretation. Comparison: Radiograph 06/25/2024. CT 03/11/2024.. Findings: 12 rib bearing vertebral bodies and 5 lumbar type vertebral bodies are identified. Coronal Deformity: No substantial coronal curvature of the spine. No substantial global coronal imbalance. Sagittal Vertical [place] (A vertical line drawn from the center of C7 (dariusz line) to the posterosuperior aspect of the S1 on sagittal plane): less than 4 cm Weight bearing axis: (Defined as a line drawn from the center of the femoral head to the mid aspect of the tibial plafond). Right: Weight bearing axis crosses through the medial tibial spine. Left: Weight bearing axis crosses central 1/3 of medial tibial plateau. Leg length: (Measured from the top of the femoral head to the center of tibial plafond. It is assumed joints are in similar degrees of extension bilaterally. Significant difference is defined when discrepancy is greater than 1.5 cm). No significant leg length discrepancy. Additional Findings: Cardiac silhouette is within normal limits. No focal airspace opacity. Nonobstructive bowel gas pattern. Electronic device projects over the right lower quadrant. Stable posterior T12 to pelvis instrumented fusion. Stable ACDF and posterior fusion of C5-C7. No evidence of hardware complication. Slightly increased opposing endplate sclerotic changes at T11-T12. Stable grade 1 anterolisthesis of C3 on C4. Left knee arthroplasty. No acute osseous abnormality. Procedure Note Ebony Wright MD - 12/05/2024 Exam: Full body radiographs using EOS History: S/P spinal fusion; Herniated lumbar intervertebral disc; History of fusion of cervical spine; Status post lumbar spinal fusion Techniques: AP and lateral images of full body and secondary images of AP and lateral views of spine were submitted for interpretation. Comparison: Radiograph 06/25/2024. CT 03/11/2024.. Findings: 12 rib bearing vertebral bodies and 5 lumbar type vertebral bodies are identified. Coronal Deformity: No substantial coronal curvature of the spine. No substantial global coronal imbalance. Sagittal Vertical [place] (A vertical line drawn from the center of C7 (dariusz line) to the posterosuperior aspect of the S1 on sagittal plane): less than 4 cm Weight bearing axis: (Defined as a line drawn from the center of the femoral head to the mid aspect of the tibial plafond). Right: Weight bearing axis crosses through the medial tibial spine. Left: Weight bearing axis crosses central 1/3 of medial tibial plateau. Leg length: (Measured from the top of the femoral head to the center of tibial plafond. It is assumed joints are in similar degrees of extension bilaterally. Significant difference is defined when discrepancy is greater than 1.5 cm). No significant leg length discrepancy. Additional Findings: Cardiac silhouette is within normal limits. No focal airspace opacity. Nonobstructive bowel gas pattern. Electronic device projects over the right lower quadrant. Stable posterior T12 to pelvis instrumented fusion. Stable ACDF and posterior fusion of C5-C7. No evidence of hardware complication. Slightly increased opposing endplate sclerotic changes at T11-T12. Stable grade 1 anterolisthesis of C3 on C4. Left knee arthroplasty. No acute osseous abnormality. Impression: 1. Stable ACDF and posterior fusion at C5-C7 and posterior T12 the pelvis instrument fusion without evidence of hardware complication. Slightly increased opposing endplate degenerative changes at T11-T12. 2. No global sagittal or coronal imbalance. 3. Weight bearing axis as detailed above. EBONY WRIGHT MD Uriel Mercedes MD IMG DIAGNOSTIC IMAGIN G ORDERABLES Final Result documented in this encounter Visit Diagnoses Diagnosis S/P spinal fusion Arthrodesis status Herniated lumbar intervertebral disc Displacement of lumbar intervertebral disc without myelopathy History of fusion of cervical spine Arthrodesis status Status post lumbar spinal fusion Arthrodesis status documented in this encounter Care Teams Warranty Coordinator Relationship Specialty Start Date End Date David Parisi MD [address] [place] [address] PCP - General 03/16/23 Uriel Mercedes MD [address] [place] [address] Assigned Musculoskeletal Provider 03/25/23 documented as of this encounter
--- OUTSIDE RECORDS SUMMARY | 2024-12-19 08:26 | XMS_ITS | Clinical Summary ---
Author Organization [facility] Address [address] [place] [address] Care Team Providers Care Water Restoration Technician Name Role Phone Unavailable Primary Care Provider Unavailabl e Source Comments You are receiving this document as you are listed as the primary care provider,follow-up provider, or the patient has been referred to you for consultation.This is in compliance with the Medicare andMedicaid EHR Incentive Program,which states Providers who transition their patient to another setting of careor provider of care or refers their patient to another provider of care shouldprovide summary care record for each transition of care or referral. [facility] Allergies Active Allergy Reactions Criticality Noted Date Comments Ibuprofen Other, see comments 10/10/2014 Retinal hemorrhage Penicillins Rash Medium 02/07/2010 Med hx shows prescriptions for Ceftin #20 05/2013 & Keflex #21 10/2016 ##No similarities in side chains, very low to no risk of cross-sensitivity to ANCEF. ANW Antimicrobial Stewardship Team 07/2019 Medications * This document contains information received from the source organization and may not represent a complete record from that organization. aspirin EC 81 MG enteric coated tablet Take 1 Tablet (81 mg) by mouth. Active atorvastatin (LIPITOR) 10 MG tablet Take 1 Tablet (10 mg) by mouth daily. 10/06/19 23 Active betamethasone dipropionate (DIPROSONE) 0.05 % cream Apply topically to affected area(s) 2 times daily. Use for 2-4 weeks until symptoms improve significantly 05/06/20 22 Active DULoxetine (CYMBALTA) 20 MG capsule Take 1 Capsule (20 mg) by mouth two times a day. 08/12/20 22 Active NOVOLOG 100 UNIT/ML injection (vial) Inject subcutaneously. 09/13/20 Active lacosamide (AKA VIMPAT) 100 MG tablet Take by mouth. 08/12/20 Active lamoTRIgine ER 200 MG Take 1 Tablet (200 mg) by mouth. Active lamoTRIgine ER 250 MG TB24 Take 1 Tablet (250 mg) by mouth daily. 09/27/20 Active lisinopril (ZESTRIL) 20 MG tablet Take 1 Tablet (20 mg) by mouth daily. 05/27/20 Active meclizine (ANTIVERT) 12.5 MG tablet Take 1 Tablet (12.5 mg) by mouth three times a day as needed. 06/17/20 Active Multiple Vitamin (ONE-A-DAY ESSENTIAL) Take 1 Tablet by mouth daily. Active pregabalin (LYRICA) 150 MG capsule Take 1 Capsule (150 mg) by mouth two times a day. 08/29/20 Active zolpidem (AMBIEN) 5 MG tablet Take 1 Tablet (5 mg) by mouth once as needed. 07/27/20 Active Ascorbic Acid (VITAMIN C) 100 MG tablet Take 1 Tablet (100 mg) by mouth daily. Active cholecalciferol (VITAMIN D3) 25 MCG (1000 UT) tablet Take 1 Tablet (1,000 Units) by mouth daily. Active Calcium 200 MG TABS Active Melatonin (MELATONIN) 1 MG Take by mouth daily at bedtime. Active Active Problems No known active problems Social History Tobacco Use Types Packs/Day Years Used Date Smoking Tobacco: Never Smokeless Tobacco: Never Tobacco Cessation:Counseling Given: Not Answered Comments Unknown Sex and Gender Information Value Date Recorded Sex Assigned at Not on file Legal Sex Female 3:26 PM CDT Gender Identity Not on file Sexual Orientation Not on file Last Filed Vital Signs Vital Sign Reading Time Taken Comments Blood Pressure 125/73 01/30/2023 2:22 PM CDT Pulse 83 01/30/2023 2:22 PM CDT Temperature - - Respiratory Rate - - Oxygen Saturation - - Inhaled Oxygen Concentration - - Weight 87.4 kg (192 lb 11.2 oz) 01/30/2023 2:22 PM CDT Height 153.7 cm (5' 0.5) 01/30/2023 2:22 PM CDT Body Mass Index 37.01 01/30/2023 2:22 PM CDT Plan of Treatment Health Maintenance Due Date Last Done Comments Cervical Cancer Screening Due 1969 Colon Cancer Screening Plan Due 1969 Diabetes: Creatinine 1969 Diabetes: Eye Exam 1969 Diabetes: Foot Exam 1969 Diabetes: Lipid Panel 1969 Diabetes: Urine Microalbumin 1969 Hep C Screening (Preventive Services) 1969 Medicare Annual Wellness Visit 1969 Mammogram 1969 HIV Screening (Preventive Services) 1985 HepB (1) 1988 Diabetes: HGBA1C 08/02/2023 01/30/2023, , 10/31/2022, Additional history exists COVID-19 Vaccine ( season) 2024 07/25/2022, 02/24/2022, 08/16/2021, Additional history exists Influenza (#1) 2024 07/25/2022, 06/03, 06/09/2020, Additional history exists DTaP/Tdap/Td (4 - Tdap) 06/13/2030 06/13/20 20, 01/25/2010, 01/28/2008 Zoster/Shingles Completed 09/15/2020, 06/13/2020 Pneumococcal 50+ Yrs Completed 04/19/2022, 04/12/2019, 03/02/2007, Additional history exists HepA Aged Out No longer eligi ble based on patient's age to complete this topic Hib Aged Out No longer eligi ble based on patient's age to complete this topic IPV (Polio) Aged Out No longer eligi ble based on patient's age to complete this topic MCV4 Aged Out No longer eligi ble based on patient's age to complete this topic Meningococcal B Aged Out No longer el igible based on patient's age to complete this topic Procedures Procedure Name Priority Date/Time Associated Diagnosis Comments POCT GLYCOSYLATED HEMOGLOBIN (HGB A1C) Routine 01/30/2023 1:43 PM CDT Type 1 diabetes mellitus without complication (HRC) from Last 3 Months or Most Recently Relevant to Health Maintenance Results * (ABNORMAL) POCT glycosylated hemoglobin (Hb A1C) (01/30/2023 1:43 PM CDT) Hemoglobin A1C (Rapid) 7.2(A) <=5.6 % POCT Cartridge Lot# [id number] POCT Blood 01/30/2023 1:43 PM CDT Sandeep Meyer MD ET POINT OF CARE TEST E NTER/EDIT ORDERABLES Final Result POCT from Last 3 Months or Most Recently Relevant to Health Maintenance Insurance MEDICARE [facility]
--- OUTSIDE RECORDS SUMMARY | 2024-12-19 08:26 | XMS_ITS | Clinical Summary ---
Author Organization [facility] Address [address] [place] [id number] Care Team Providers Care Supervisor Operations Name Role Phone Bernadette Cabrera MD Primary Care Provider [phone] [facility] [place] Unavailable [phone] Allergies Active Allergy Reactions Criticality Noted Date Comments Ibuprofen Other - Describe In Comment Field 10/10/2014 Retinal hemorrhage Losartan Hyperkalemia 05/27/2024 Penicillins Rash Medium 02/07/2010 Med hx shows prescriptions for Ceftin #20 05/2013 & Keflex #21 10/2016 ##No similarities in side chains, very low to no risk of cross-sensitivity to ANCEF. ANW Antimicrobial Stewardship Team 07/2019 Wheat Flour Nausea Only,Dizziness 10/10/2014 Includes oats, wheat, barley, rye and malt. Medications multivitamin (MVI) tablet Take 1 tablet by mouth once daily. Active ascorbic acid, vitamin C, (VITAMIN C) 500 mg tablet Take 1 tablet by mouth once daily. 0 10/14/19 14 Active cholecalciferol (VITAMIN D3) 1,000 unit tablet Take 2 tablets by mouth once daily. 0 11/26/19 14 Active Calcium carbonate (OYSTERSHELL CALCIUM) 500 mg tabletIndications :Osteopenia Take 1 tablet by mouth 2 times daily with meals. 180 tablet 3 03/16/20 15 Active Insulin Pump Cartridge crtg Inject subcutaneous. 0.8 units per hour from 0000 to 1530, 0.85 units per hour from 1530 to 1930, 0.9 units per hour from 1929 to 2358. Plus boluses with meals and carb counting 1 units per 10 carbs Active aspirin (ECOTRIN) 81 mg enteric coated tablet Take 81 mg by mouth once daily with a meal. Active lamoTRIgine (LAMICTAL XR) 250 mg [id number]:S eizure disorder (HC) Take 1 tablet by mouth at bedtime. Take 1 tablet with 200 mg tablet for a total of 450 mg qhs 90 tablet 12/31/19 Active melatonin 5 mg chew Chew 10 mg by mouth at bedtime if needed. 0 08/16/20 21 Active lamoTRIgine (LAMICTAL XR) 200 mg Extended-Release tablet Take 200 mg by mouth at bedtime. With 250mg ER for 450mg ER q bedtime Active insulin pump cart,automated,BT (Omnipod 5 G6 Pods, Gen 5,) crtgIndications:T ype 1 diabetes mellitus with complications (HC) Inject subcutaneous. Change pod every 48 hours 9 Each 4 08/22/20 23 Active albuterol HFA (PRO-AIR; VENTOLIN; PROVENTIL) 90 mcg/actuation inhalerIndication s:Acute bronchospasm due to viral infection Inhale 1-2 Puffs by mouth every 4 hours if needed for Shortness Of Breath or Wheezing. 1 Each 10/18/19 24 Active albuterol (PROVENTIL) 0.083 % neb solutionIndicatio ns:Acute bronchospasm due to viral infection Inhale 3 mL (2.5 mg) via a nebulizer every 4 hours if needed for Shortness Of Breath or Wheezing. 45 mL 1 10/18/19 24 Active inhalational spacing deviceIndications :Acute bronchospasm due to viral infection For home use. 1 Each 10/18/19 24 Active NebulizerIndicati ons:Mild intermittent asthma with exacerbation (HC) Nebulizer, disposable neb kit x 4, reuseable neb kit x 1, mask x 1, filters x 1. Frequency of use: daily; Medication: albuterol Length of need: 12 months 1 Each 10/27/19 24 Active ferrous sulfate 325 mg delayed release tabletIndications :Iron deficiency Take 1 Tablet (325 mg) by mouth once daily with a meal. 90 Tablet 3 11/23/19 24 Active lacosamide (Vimpat) 100 mg tabletIndications :Seizure disorder (HC) Take 1 Tablet (100 mg) by mouth two times daily. 60 Tablet 02/10/20 24 Active insulin lispro (Admelog U-100 Insulin lispro) 100 unit/mL injectionIndicati ons: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) USE 50 TO 60 UNITS DAILY NEEDED IN THE INFUSION PUMP FOR DIABETES CONTROL, 40 mL 04/24/20 24 Active insulin lispro (Admelog U-100 Insulin lispro) 100 unit/mL injectionIndicati ons: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) USE 50 TO 60 UNITS DAILY NEEDED IN THE INFUSION PUMP FOR DIABETES CONTROL, 180 mL 3 04/24/20 24 Active pregabalin (Lyrica) 150 mg capsuleIndication s:Spinal stenosis, lumbar region, without neurogenic claudication Take 1 Capsule (150 mg) by mouth two times daily. 05/27/20 24 Active amLODIPine (NORVASC) 5 mg tabletIndications :HTN (hypertension) Take 1 Tablet (5 mg) by mouth once daily. 90 Tablet 3 06/17/20 24 Active glucagon (Glucagon Emergency Kit, human,) 1 mg injectionIndicati ons: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) INJECT 1 MG INTRAMUSCULARLY 1 TIME IF NEEDED FOR BLOOD GLUC LESS THAN 60MG/DL FOR UP TO 1 DOSE. 1 Each 1 06/24/20 24 Active rOPINIRole (REQUIP) 0.5 mg tabletIndications :Restless leg syndrome Take 2 Tablets (1 mg) by mouth at bedtime. Take 1mg by mouth 2-3 hours before bedtime. 180 Tablet 3 08/02/20 24 Active atorvastatin (LIPITOR) 10 mg tabletIndications :Hyperlipidemia, unspecified hyperlipidemia type TAKE 1 TABLET BY MOUTH ONCE DAILY. 90 Tablet 2 08/22/20 24 Active celecoxib (CELEBREX) 100 mg capsule Take 100 mg by mouth 2 times daily if needed. 08/16/20 24 Active clobetasol (TEMOVATE) 0.05 % creamIndications: Hand dermatitis Apply topically to affected area(s) two times daily. Use for 2-4 weeks until symptoms improve significantly 60 g 5 08/27/20 24 Active triamcinolone (ARISTOCORT; KENALOG) 0.1 % creamIndications: Rash Apply topically to affected area(s) three times daily. 80 g 09/04/20 24 Active sensor (Dexcom G6 Sensor) for continuous blood glucose monitor (CGM)Indications: 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) As directed. 3 Each 5 09/12/20 24 Active insulin pump cart,auto,BT,G6/7 (Omnipod 5 G6-G7 Pods, Gen 5,) crtgIndications:T ype 1 diabetes mellitus with complications (HC) Inject subcutaneous. 15 Each 11 09/13/20 24 Active lisinopriL (PRINIVIL; ZESTRIL) 20 mg tabletIndications :HTN (hypertension) Take 1 Tablet (20 mg) by mouth once daily. 90 Tablet 3 10/07/19 25 Active furosemide (LASIX) 20 mg tabletIndications :Bilateral lower extremity edema Take 2 Tablets (40 mg) by mouth once daily in the morning. 90 Tablet 10/15/19 25 Active doxycycline 100 mg tabletIndications :Infection of prosthetic joint, initial encounter Take 1 Tablet (100 mg) by mouth two times daily before meals. 60 Tablet 1 10/15/19 25 Active doxycycline 100 mg tabletIndications :Infection of prosthetic joint, initial encounter Take 1 Tablet (100 mg) by mouth two times daily before meals. 60 Tablet 5 10/15/19 25 Active DULoxetine (CYMBALTA) 20 mg Delayed-release capsuleIndication s:Recurrent major depressive disorder, in partial remission TAKE 2 CAPSULES (40 MG) BY MOUTH ONCE DAILY. 180 Capsule 2 11/05/19 25 Active zolpidem (AMBIEN) 5 mg tabletIndications :Insomnia, unspecified type TAKE 1 TABLET (5 MG) BY MOUTH AT BEDTIME IF NEEDED FOR SLEEP. 30 Tablet 11/05/19 25 Active meclizine (ANTIVERT) 12.5 mg tabletIndications :Dizziness TAKE 1 TABLET BY MOUTH 3 TIMES DAILY IF NEEDED FOR VERTIGO. 30 Tablet 1 11/08/19 25 Active ondansetron 4 mg disintegrating tabletIndications :Nausea Place 1 Tablet (4 mg) on the tongue every 8 hours if needed for Nausea/Vomiting. 30 Tablet 12/17/19 25 Active omeprazole 20 mg Delayed-Release capsuleIndication s:Nausea Take 1 Capsule (20 mg) by mouth once daily before a meal. 30 Capsule 12/17/19 25 Active ceFAZolin (ANCEF; KEFZOL) injection 10/09/19 25 2024 Awa leach(Luh morales states no longer taking) Hospital, Clinic, or Other Facility Administered Medication Ordered Dose Route Frequency Start Date End Date Status ondansetron 4 mg injection (ZOFRAN)Indications:N ausea 4 mg IV ONE TIME 12/13/2024 12/13/2024 Ended ondansetron 4 mg injection (ZOFRAN)Indications:G astroenteritis,Nausea 4 mg IV ONE TIME 12/13/2024 12/13/2024 Dis continued Active Problems Problem Noted Date Diagnosed Date Right-sided low back pain with right-sided sciat ica 02/20/2022 Spinal stenosis, lumbar jeovanny on, without neurogenic claudication 04/29/2016 Lumbar disc herniation 10/23/2015 HTN (hypertension) 09/08/2015 Celiac disease 08/06/2014 Overview (08/06/2014): EGD 08/2014 celiac disease Insulin pump in place 04/01/2014 Overview (02/21/2022): Gait instability 05/02/2013 Type I (juvenile type) diabetes mellitus with co mplications 11/16/2012 Overview (04/19/2016): Diagnosed at age 1 On insulin pump since 2007. Good control. Proliferative retinopathy with laser photocoagulation 1990 Cataract surgery, legally blind both eyes. No neuropathy. ++hypoglycemia unawareness, microalbuminuria. Insomnia, unspecified 09/04/2012 Overview (09/03/2024): She takes occasional ambien. Generally gets about 30 pills and lasts her 6 months. Recurrent major depressive disorder, in partial remission 09/04/2012 Dermatitis 09/04/2012 Seizure disorder 02/05/2010 Dyslipidemia 02/05/2010 S/P lumbar spinal fusion Resolved Problems Problem Noted Date Diagnosed Date Resolved Date Anemia 02/20/2022 10/31/2022 Acute exacerbation of chronic low back pain 02/20/2022 10/31/2022 Respiratory arrest 01/14/2022 Spinal stenosis 06/18/2019 10/31/2022 Type 1 diabetes mellitus with complication 10/03/2016 10/03/2016 Microalbuminuria 03/25/2014 04/01/2014 Obesity, unspecified 09/04/2012 014 Type II or unspecified type diabetes mellitus with ketoacidosis, not stated as uncontrolled 02/05/2010 11/16/2012 Extrinsic asthma, unspecified 02/05/2010 09/21/2021 Hypothyroidism 02/05/2010 04/01/2014 HTN (hypertension) 02/05/2010 Acute postoperative pain Postoperative back pain 10/04 PONV (postoperative nausea and vomiting) 10/31/2022 Encounters Date Type Department Care Team Description 12/18/2024 Telephone [facility] [address] [place] [address] Bernadette Cabrera MD Form 12/16/2024 9:42 AM CDT - 12/16/2024 11:59 PM CDT Hospital Encounter [address] [address] Bernadette Cabrera MD Gastroenteritis; Nausea; 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) 12/16/2024 Telephone [facility] [address] [facility] [place] [address] Bernadette Cabrera MD OTHER (update); update (Updating pcp) 12/16/2024 Travel 12/13/2024 8:50 AM CDT Office [facility] [address] [facility] [address] Bernadette Cabrera MD Nausea (Threw up Monday and Monday haven't thrown up since but nauseated. No fever hasn't been able to eat much trying to drink lots of fluid ) 12/13/2024 Telephone [facility] [address] [facility] [place] [address] Bernadette Cabrera MD Results; Follow Up 12/13/2024 Travel 12/12/2024 Nurse Triage [facility] [address] [facility] [place] [address] Bernadette Cabrera MD Questions (question ) 12/03/2024 Telephone [facility] [address] [address] Padmini Sena MD Lab 12/02/2024 Telephone [facility] [address] [place] [address] Bernadette Cabrera MD Follow Up (Fax) 12/02/2024 Telephone [facility] [address] [place] [address] Bernadette Cabrera MD Results 11/28/2024 9:50 AM ORE CRUSHER Office Visit [facility] [address] [place] [address] Bernadette Cabrera MD Lab; Diabetes 11/28/2024 Travel 11/20/[address] [address] Padmini Sena MD Questions (Infection ) 11/20/2024 Travel 11/19/2024 9:00 AM ORE CRUSHER Phone Office Visit [address] [address] Padmini Sena MD 11/15/2024 10:30 AM ORE CRUSHER Orders Only [address] [address] Lab, [place] Lab 11/15/2024 Travel 11/06/2024 Refill [facility] [address] [place] [address] Bernadette Cabrera MD Refill Request (Meclizine) 11/02/2024 Refill [facility] [address] [place] [address] Bernadette Cabrera MD Refill Request (Duloxetine, Zolpidem) 10/30/[address] [address] Padmini Sena MD Lab (Infection) 10/28/2024 9:00 AM ORE CRUSHER Ancillary Procedure [facility] [address] [place] [address] 10/28/2024 Travel 10/15/2024 10:05 AM ORE CRUSHER Office Visit [facility] [address] [place] [address] Bernadette Cabrera MD Follow Up 10/15/2024 Orders Only [facility] Scanner 1 scan: (1-Ord) [facility], MULTIPLE LABS, 10/15/2024 10/15/2024 Telephone [facility] [address] [place] [address] Bernadette Cabrera MD Medication Management (Antibiotics/) 10/15/2024 Travel 10/14/[address] [address] Padmini Sena MD Lab (Orders request) 10/11/2024 Telephone [facility] [address] [place] [address] Bernadette Cabrera MD Questions (Medication ) 10/10/2024 10:00 AM ORE CRUSHER Phone Office Visit [address] [address] Padmini Sena MD Follow Up; Infection (Left Knee post-op); Phone Visit 10/10/2024 Refill [facility] [address] [place] [address] Bernadette Cabrera MD Refill Request (Furosemide) 10/10/2024 Travel 10/08/2024 Orders Only [facility] Scanner 1 scan: (1-Ord) [facility], MULTIPLE LAB RESULTS, 10/08/2024 10/07/2024 10:45 AM ORE CRUSHER Office Visit [facility] [address] [place] [address] Bernadette Cabrera MD Follow Up; Medication Management (Lasix 40 mg in the morning and 20 mg in the afternoon) 10/07/2024 Travel 09/30/2024 Telephone [facility] [address] [place] [address] Bernadette Cabrera MD Questions (lisinopriL (PRINIVIL; ZESTRIL) 10 mg table) 09/27/2024 9:30 AM ORE CRUSHER Orders Only [facility] [address] [place] [address] Lab, [place] Lab 09/27/2024 Telephone [facility] [address] [facility] [address] Bernadette Cabrera MD Medication Management 09/27/2024 Telephone [facility] [address] [facility] [address] Bernadette Cabrera MD Questions (discharge from [facility]) 09/27/2024 Travel 09/24/2024 Orders Only [facility] Scanner 1 scan: (1-Ord) [facility], CBC W/ DIFFERENTIAL, 09/24/2024 09/24/2024 Telephone [facility] [address] [place] [address] Bernadette Cabrera MD Questions (Infection related to medication) from Last 3 Months Immunizations Immunization Administration Dates Next Due COVID-19 VACCINE SPIKEVAX (M ODERNA 50MCG/0.5ML) 12YO+ PFS 06/17/2024,08/15/2023 COVID-19 vaccine (Moderna 100mcg/0.5mL) PF, MDV 02/24/2022 COVID-19 vaccine (Pfizer-Bio NTech 30mcg/0.3mL) 12YO+ BIVALENT PF, MDV 07/25/2022 COVID-19 vaccine (Pfizer-Bio NTech 30mcg/0.3mL) 12YO+ ALVA-SUCROSE PF, MDV 01/16/2022() COVID-19 vaccine (Pfizer-Bio NTech 30mcg/0.3mL) PF, MDV 08/16/2021,01/22/2021,01/02/2021 Hepatitis B (Adult) 02/02/2015,09/04/2014,2013 INFLUENZA, IIV3 PF (AGE >= 6 MO) 06/17/2024 Influenza A (H1N1), Inactivated 09/14/2009 Influenza Virus, Unspecified 06/28/2019, 06/22/2018,06/02/2014,2011,07/04/2011,07/15/2010,07/25/2007 Influenza, High-dose Inactivated 06/02/2014 Influenza, IIV3 (Age 6-35 mos) 2,07/04/2011,07/15/2010,2008 Influenza, IIV3 (Age >=3 years) 10/14/2013,07/28,07/26/2006 Influenza, IIV4 06/20/2023, 2,06/21/2021,2019,06/28/2019,06/22/2018,08/06/2015,0 06/12/2014 Influenza, IIV4 (=>6mos) MDV 06/23/2017 Influenza, RIV3 (Age =>18 Years) 07/04/2016 Pneumococcal Conj 20-valent (Prevnar 20) 04/19/2022 Pneumococcal Poly,23-Valent (Pneumovax) 04/12/2019,03/02/2007,10/09/2006 Tdap 06/13/2020,01/25/2010 Tdap, Unspecified 01/28/2008 Zoster (Shingrix-RZV, recombinant) 09/15/2020, Family History Medical History Relation Name Comments Diabetes Brother Type 1 Diabetes Father Heart Disease Father Diabetes Mother Diabetes Sister 1 Type 1 Heart Disease Sister 2 Anesthesia Problem No Family History Cancer-colon No Family History Relation Name Status Comments Brother Father Mother Sister 1 Sister 2 Social History Tobacco Use Types Packs/Day Years Used Date Smoking Tobacco: Never Passive Smoke Exposure: Never Smokeless Tobacco: Never Tobacco Cessation:Counseling Given: Yes Alcohol Use Standard Drinks/Week Comments Not Currently 0 (1 standard drink = 0.6 oz pur e alcohol) rare PHQ-2 Answer Date Recorded PHQ-2 TOTAL SCORE 2 11/28/2024 Social Connections Answer Date Recorded Do you often feel lonely or isolated from those around you? 0 07/18/2024 Financial Resource Strain Answer Date R ecorded Difficulty of Paying Living Expenses 3 07/18/2024 Difficulty of Paying Living Expenses Not on file 07/18/2024 Food Insecurity Answer Date Recorded Do you worry your food will run out before you are able to buy more? 1 07/18/2024 Transportation Needs Answer Date Record ed Does lack of transportation keep you from medica l appointments? 1 07/18/2024 Does lack of transportation keep you from work, meetings or getting things that you need? 1 07/18/2024 Housing Stability Answer Date Recorded What is your housing situation today? 1 07/18/2024 Utilities Answer Date Recorded Do you have trouble paying f or utilities (for example, heat, electricity, water, phone)? 1 07/18/2024 Comments No Sex and Gender Information Value Date Recorded Sex Assigned at Not on file Legal Sex Female 5:31 AM ORE CRUSHER Gender Identity Not on file Sexual Orientation Not on file Occupation Industry Job Start Date Job End Date DISABLED Not on file Not on file Not on file Obstetrics History Last Filed Vital Signs Vital Sign Reading Time Taken Comments Blood Pressure 126/74 12/13/2024 8:50 AM CDT Pulse 98 12/13/2024 8:50 AM CDT Temperature 36.7 C (98 F) 09/04/2024 3:13 PM ORE CRUSHER Respiratory Rate 16 02/20/2023 9:36 AM CDT Oxygen Saturation 97% 12/13/2024 8:50 AM CDT Inhaled Oxygen Concentration - - Weight 79.2 kg (174 lb 11.2 oz) 12/13/2024 8:50 AM CDT Height 153.4 cm (5' 0.4) 09/02/2024 8:24 AM ORE CRUSHER Body Mass Index 33.67 09/02/2024 8:24 AM ORE CRUSHER Plan of Treatment Upcoming Encounters Date Type Department Care Team (Late st Contact Info) Description 12/30/2024 8:15 AM CDT Ancillary Procedure [facility] [address] [place] [address] 01/16/2025 9:00 AM CDT Orders Only [facility] [address] [place] [address] [place], [place] 01/21/2025 9:00 AM CDT Phone Office Visit [facility] [address] [address] Padmini Sena MD [address] [address] 03/06/2025 9:00 AM CDT Office Visit [facility] [address] [facility] [place] [address] Bernadette Cabrera MD [address] [facility] [address] Health Maintenance Due Date Last Done Comments Mammogram for age 45-75 02/26/2025 02/27/20, 11/08/2022, 06/29/2021, Additional history exists Pap test for age 21-65 06/09/2025 , 06/09/2020, 03/30/2017, Additional history exists BMI (ht and wt on same day) for age 18+ 09/02/2025 09/02/2024, 10/31/2022, 12/11/2020, Additional history exists Depression screening for age 12+ 12/02/2025 12/02/2024, 12/02/2024, 11/28/2024, Additional history exists Fecal testing sDNA-FIT (Bokeelia guard) for age 45-75 08/20/2026 08/20/2023, 07/25/2020 Lipids for age 45-75 11/28/2029 11/28/2024, 08/15/2023, 10/31/2022, Additional history exists Tetanus booster 06/13/2030 06/13/2020, 01/01, 01/28/2008 Hepatitis B series for Diabetes Completed 02/02/2015, 09/04/2014, 06/12/2014 Tdap Completed 06/13/2020, 01/01, 01/28/2008 Zoster (shingles) series for age 50+ Completed 09/15/2020, 06/13/2020 Pneumococcal series for age 50+ Completed 04/19/2022, 04/12/2019, 03/02/2007, Additional history exists HIV for age 15-65 Completed 05/11/2023 Hepatitis C screening for ag e 18-79 Completed 05/11/2023 COVID-19 vaccine series Completed 06/17/20 24, 08/15/2023, 07/25/2022, Additional history exists Influenza Vaccine Completed 06/17/2024, , 07/25/2022, Additional history exists Goals Goal Patient Goal Type Associated Problems Recent Progress Patient-Stated? Author QUALITY OF LIVING-PATIENT REMAINS IN PREFERRED RESIDENTIAL SETTING WITH OR WITHOUT C SERVICES- 08/17. Vincenzo Gonsalez RN Note: [facility] to collaborate with Home Care Machine Printer and / or patient to monitor for home care discharge plan, adherence to plan of care and progression towards goals. Patient to transition from Home Care to [facility] program when appropriate. Medical Devices Implanted Type Area Mortgage Loan Underwriter Device Identifier Shelf Expiration Date Model / Serial / Lot [id number] Matrix 1cc Dbx Putty Dbm [[id number]] Implanted:Qty: 1 on 04/26/2016 by Buck Mata MD at [facility] Explanted:at [facility] (Quantity not on file) N/A: Spine Musculoskeletal Transplant 12/06/2017 [id number]# / [id number] / [id number] [id number] 30cc Mtf Crushed Canclls Pouch [[id number]] Implanted:Qty: 1 on 04/26/2016 by Buck Mata MD at [facility] Explanted:at [facility] (Quantity not on file) N/A: Spine Musculoskeletal Transplant 01/01/2019 [id number]# / [id number] / Spacer Lmbr [id number] 0deg Avsunilif - [id number] Implanted:Qty: 1 on 04/26/2016 by Buck Mata MD at [facility] N/A: Spine Vivek Spine [id number]# / / Screw Lmbr Post 6.5x40mm Xia3 Va - [id number] Implanted:Qty: 1 on 04/26/2016 by Buck Mata MD at [facility] N/A: Spine Sunman Spine [id number]# / / Screw Lmbr Post 6.5x45mm Xia3 Va - [id number] Implanted:Qty: 3 on 04/26/2016 by Buck Mata MD at [facility] N/A: Spine Sunman Spine [id number]# / / Cnnctr Lmbr 35-44mm Marilee Iii Va - [id number] Implanted:Qty: 1 on 04/26/2016 by Buck Mata MD at [facility] N/A: Spine Vivek Spine [id number]# / / Set Screw Lmbr Xia3 - [id number] Implanted:Qty: 4 on 04/26/2016 by Buck Mata MD at [facility] N/A: Spine Sunman Spine [id number]# / / Radhika Lmbr 40mmx6 Xia3 Cvd Titnm - [id number] Implanted:Qty: 1 on 04/26/2016 by Buck Mata MD at [facility] N/A: Spine Sunman Spine [id number]# / / Radhika Lmbr 45mmx6 Xia3 Cvd Titnm - [id number] Implanted:Qty: 1 on 04/26/2016 by Buck Mata MD at [facility] N/A: Spine Sunman Spine [id number]# / / [id number] one Matrix 3cc Jose Dbf Putty Dbm Implanted:Qty: 1 on 06/18/2019 by Buck Mata MD at [facility] Explanted:at [facility] (Quantity not on file) N/A: Spine Medtronic Spine/Ortho 01/27/2021 [id number] / [id number] / [id number] one 1-4mm 30cc Medtronic Chips Canclls Freeze Dried Implanted:Qty: 1 on 06/18/2019 by Buck Mata MD at [facility] Explanted:at [facility] (Quantity not on file) N/A: Spine Medtronic Spine/Ortho 10/18/2023 [id number]# / [id number] / Spacer Lmbr [id number] 0deg Avsunilif - [id number] Implanted:Qty: 1 on 06/18/2019 by Buck Mata MD at [facility] N/A: Spine Vivek Spine [id number]# / / Screw Lmbr Post 6.5x45mm Xia3 Va - [id number] Implanted:Qty: 2 on 06/18/2019 by Buck Mata MD at [facility] N/A: Spine Sunman Spine [id number]# / / Radhika Lmbr 80mmx6 Xia3 Cvd Titnm - [id number] Implanted:Qty: 2 on 06/18/2019 by Buck Mata MD at [facility] N/A: Spine Sunman Spine [id number]# / / Set Screw Lmbr Xia3 - [id number] Implanted:Qty: 6 on 06/18/2019 by Buck aMta MD at [facility] N/A: Spine Sunman Spine [id number]# / / [id number] one 1-4mm 30cc Medtronic Chips Canclls Freeze Dried Implanted:Qty: 1 on 01/14/2022 by Buck Mata MD at [facility] Explanted:at [facility] (Quantity not on file) N/A: Spine Medtronic Spine/Ortho 02/25/2026 [id number] / [id number] / [id number] one Matrix 3cc Jose Dbf Putty Dbm Implanted:Qty: 1 on 01/14/2022 by Buck Mata MD at [facility] Explanted:at [facility] (Quantity not on file) N/A: Spine Medtronic Spine/Ortho 12/17/2023 [id number] / [id number] / Set Screw Lmbr Xia3 - [id number] Implanted:Qty: 8 on 01/14/2022 by Buck Mata MD at [facility] N/A: Spine Sunman Spine [id number] / / Radhika Lmbr [id number] Xia3 Cvd Titnm - [id number] Implanted:Qty: 2 on 01/14/2022 by Buck Mata MD at [facility] N/A: Spine Vivek Spine [id number] / / Screw Lmbr Post 6.5x50mm Xia3va - [id number] Implanted:Qty: 2 on 01/14/2022 by Buck Mata MD at [facility] N/A: Spine Sunman Spine [id number] / / Spacer Lmbr [id number] 0 Deg Avs Unilif - [id number] Implanted:Qty: 1 on 01/14/2022 by Buck Mata MD at [facility] N/A: Spine Vivek Spine [id number] / / Screw Lmbr Post 8.5x50mm Ilios Va - [id number] Implanted:Qty: 1 on 02/22/2022 by Buck Mata MD at [facility] N/A: Spine Vivek Spine [id number] / / Screw Lmbr Post 8.5x55mm Ilios Va - [id number] Implanted:Qty: 1 on 02/22/2022 by Buck Mata MD at [facility] N/A: Spine Vivek Spine [id number] / / Cnnctr Lmbr 53-73mm Marilee Iii Va - [id number] Implanted:Qty: 1 on 02/22/2022 by Buck Mata MD at [facility] N/A: Spine Vivek Spine [id number] / / Set Screw Lmbr Xia3 - [id number] Implanted:Qty: 8 on 02/22/2022 by Buck Mata MD at [facility] N/A: Spine Vivek Spine [id number] / / Explanted Type Area Mortgage Loan Underwriter Device Identifier Shelf Expiration Date Model / Serial / Lot Explant Explanted:Qty: 1 on 06/18/2019 at [facility] N/A: Spine Description:RADHIKA X2 CROSSLINK X1 Vivek Marilee 3 Explanted:Qty: 1 on 02/22/2022 by Buck Mata MD at [facility] Description:2 screws/ 8 set screws Procedures Procedure Name Priority Date/Time Associated Diagnosis Comments CT ABDOMEN PELVIS ENTEROGRAPHY W Routine 12/16/2024 11:36 AM CDT Gastroenteritis Nausea 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) CBC WITH AUTO DIFFERENTIAL STAT 12/13/2024 9:36 AM CDT Gastroenteritis CBC WITH AUTO DIFFERENTIAL STAT 12/13/2024 9:36 AM CDT Gastroenteritis COMP METABOLIC PANEL STAT 12/13/2024 9:36 AM CDT Gastroenteritis COVID/FLU/RSV PANEL Routine 12/13/2024 9 :36 AM CDT Acute medical illness C-PEPTIDE Routine 11/28/2024 1:00 PM ORE CRUSHER 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) CYCLIC CITRULLINE PEPTIDE Routine 11/28/2024 11:03 AM ORE CRUSHER BASIC METABOLIC PANEL Routine 11/28/2024 11:03 AM ORE CRUSHER HTN (hypertension) CBC W PLT NO DIFF Routine 11/28/2024 11: 03 AM ORE CRUSHER Anemia, unspecified type HEMOGLOBIN A1C MONITORING (POCT) Routine 11/28/2024 9:37 AM ORE CRUSHER 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) LIPID PANEL Routine 11/28/2024 9:36 AM ORE CRUSHER Hyperlipidemia, unspecified hyperlipidemia type C-REACTIVE PROTEIN Routine 11/15/2024 10 :32 AM ORE CRUSHER Infection associated with internal left knee prosthesis, initial encounter CBC WITH AUTO DIFFERENTIAL Routine 11/15/2024 10:32 AM ORE CRUSHER Infection associated with internal left knee prosthesis, initial encounter COMP METABOLIC PANEL Routine 11/15/2024 10:32 AM ORE CRUSHER Infection associated with internal left knee prosthesis, initial encounter ECHO TTE COMPLETE WO CONTRAST Routine 10/28/2024 9:41 AM ORE CRUSHER Bilateral lower extremity edema HTN (hypertension) SCAN-LABORATORY REPORT 10/15/2024 12:00 AM ORE CRUSHER SCAN-LABORATORY REPORT 10/08/2024 12:00 AM ORE CRUSHER BASIC METABOLIC PANEL Routine 09/27/2024 9:23 AM ORE CRUSHER Hyperkalemia SCAN-LABORATORY REPORT 09/24/2024 12:00 AM ORE CRUSHER XR MAMMO MACHO BILAT SCREEN Routine 02/27/2024 2:35 PM CDT Visit for screening mammogram SDNA-FIT EXTERNAL (COLOGUARD) Routine 08/20/2023 8:14 PM ORE CRUSHER Screening for colon cancer LC HIV-1/O/2, 4TH GENERATION Routine 05/11/2023 11:25 AM CDT Screening for HIV (human immunodeficiency virus) LC HCV ANTIBODY RFX TO QUANT PCR Routine 05/11/2023 11:25 AM CDT Need for hepatitis C screening test FILE KEEPER THIN PREP PAP SCREEN IMAGED Routine 06/09/2020 9:35 AM CDT Cervical cancer screening from Last 3 Months or Most Recently Relevant to Health Maintenance Results * CT ABDOMEN PELVIS ENTEROGRAPHY W (12/16/2024 11:36 AM CDT) Anatomical Region Laterality Modality Abdomen, Pelvis, AORTA, LIVER, SPLEEN Computed Tomography, Computed Tomography 12/16/2024 2:37 PM CDT Narrative 12/16/2024 2:37 PM CDT For Patients: As a result of the Century Cures Act, medical imaging exams and procedure reports are released immediately into your electronic medical record. You may view this report before your referring provider. If you have questions, please contact your health care provider. INDICATION : Early satiety. Diabetes. TECHNIQUE : CT scan abdomen pelvis. IV contrast 80 cc Omnipaque 1500 cc oral biphasic agent. Enterography protocol. Sagittal and coronal reconstruction. COMPARISON: CT enterography 07/02/2014. FINDINGS : GI tract: Normal caliber. Optimal distention with biphasic agent. No significant wall thickening or dilatation. Mesentery unremarkable. Liver, spleen, pancreas, adrenal glands: Unremarkable. Biliary tree unremarkable, no calcified gallstones. Kidneys and bladder: Unremarkable Lymph nodes: No adenopathy Pelvis: Stable small uterine calcification. Normal-sized uterus. Bladder unremarkable. Slightly prominent lymph nodes in the pelvic sidewall common femoral chain left greater than right measuring up to 11 millimeters. Image 163. Lung bases: Micronodule left lower lobe image 15 no change prior. Skeletal: Long segment interbody and posterior spine stabilization, intact hardware. No suspicious osseous lesion. IMPRESSION : 1. Unremarkable CT enterography 2. No other change from prior exam. Please note that all CT scans at this facility use dose modulation, iterative reconstruction, and/or weight-based dosing when appropriate to reduce radiation dose to as low as reasonably achievable. Dictated by Zohaib Jones MD @ 12/16/2024 2:37:18 PM (Electronically Signed) Procedure Note Zohaib Jones MD - 12/16/2024 For Patients: As a result of the Cures Act, medical imagingexams and procedure reports are released immediately into your electronicmedical record. You may view this report before your referring provider.If you have questions, please contact your health care provider. INDICATION : Early satiety. Diabetes. TECHNIQUE : CT scan abdomen pelvis. IV contrast 80 cc Omnipaque 1500 cc oral biphasic agent. Enterography protocol. Sagittal and coronal reconstruction. COMPARISON: CT enterography 07/02/2014. FINDINGS : GI tract: Normal caliber. Optimal distention with biphasic agent. Nosignificant wall thickening or dilatation. Mesentery unremarkable. Liver, spleen, pancreas, adrenal glands: Unremarkable. Biliary treeunremarkable, no calcified gallstones. Kidneys and bladder: Unremarkable Lymph nodes: No adenopathy Pelvis: Stable small uterine calcification. Normal-sized uterus. Bladderunremarkable. Slightly prominent lymph nodes in the pelvic sidewall commonfemoral chain left greater than right measuring up to 11 millimeters.Image 163. Lung bases: Micronodule left lower lobe image 15 no change prior. Skeletal: Long segment interbody and posterior spine stabilization, intacthardware. No suspicious osseous lesion. IMPRESSION : 1. Unremarkable CT enterography 2. No other change from prior exam. Please note that all CT scans at this facility use dose modulation,iterative reconstruction, and/or weight-based dosing when appropriate toreduce radiation dose to as low as reasonably achievable. Dictated by Zohaib Jones MD @ 12/16/2024 2:37:18 PM (Electronically Signed) Bernadette Cabrera MD CT Final Resu lt * COVID/FLU/RSV PANEL (12/13/2024 9:36 AM CDT) Pathologist [facility] COVID 19 SRAVANTHI MOLECULAR Negative Negative 12/13/2024 4:17 PM CDT [facility] Comment:All PCR tests are sow bject to false negative result due to variability in viral load and collection technique. A negative result does not rule out a SARS-CoV-2 infection. Clinical correlation required. INFLUENZA A PCR Negative 4:17 PM CDT [facility] INFLUENZA B PCR Negative 4:17 PM CDT [facility] Respiratory Syncytial Virus Negative 12/13/2024 4:17 PM CDT [facility] Swab NASOPHARYNGEAL SWAB / Unknown Non-Blood / Unknown 12/13/2024 9:36 AM CDT 12/13/2024 9:36 AM CDT Bernadette Cabrera MD MICROBIOLOGY Final Resu lt [facility] [address] [place] [address], * (ABNORMAL) CBC WITH AUTO DIFFERENTIAL (12/13/2024 9:36 AM CDT) Pathologist [facility] WHITE BLOOD COUNT 8.6 4.5 - 11.0 thou/cu mm 12/13/2024 12:06 PM T [facility] RED BLOOD COUNT 4.46 4.00 - 5.20 mil/cu mm 12/13/2024 12:06 PM T [facility] HEMOGLOBIN 12.5 12.0 - 16.0 g/dL 12/13/2024 12:06 PM T [facility] HEMATOCRIT 40.2 33.0 - 51.0 % 12/13/2024 12:06 PM [facility] MCV 90 80 - 100 fL 12/13/2024 12:06 PM [facility] MCH 28.0 26.0 - 34.0 pg 12/13/2024 12:06 PM [facility] MCHC 31.1(L) 32.0 - 36.0 g/dL 12/13/2024 12:06 PM [facility] RDW 15.3 11.5 - 15.5 % 12/13/2024 12:06 PM [facility] PLATELET COUNT 307 140 - 440 thou/cu mm 12/13/2024 12:06 PM [facility] MPV 12.4(H) 6.5 - 11.0 fL 12/13/2024 12:06 PM [facility] % NEUT 68.7 % 12/13/2024 12:06 PM [facility] % LYMPH 17.8 % 12/13/2024 12:06 PM [facility] % MONO 7.6 % 12/13/2024 12:06 PM [facility] % EOS 5.6 % 12/13/2024 12:06 PM [facility] % BASO 0.3 % 12/13/2024 12:06 PM [facility] ABSOLUTE NEUTROPHILS 5.9 1.7 - 7.0 thou/cu mm 12/13/2024 12:06 PM [facility] ABSOLUTE LYMPHOCYTES 1.5 0.9 - 2.9 thou/cu mm 12/13/2024 12:06 PM [facility] ABSOLUTE MONOCYTES 0.7 <0.9 thou/cu mm 12/13/2024 12:06 PM [facility] ABSOLUTE EOSINOPHILS 0.5(H) <0.5 thou/cu mm 12/13/2024 12:06 PM [facility] ABSOLUTE BASOPHILS 0.0 <0.3 thou/cu mm 12/13/2024 12:06 PM [facility] Blood BLOOD SPECIMEN / Unknown [facility] / Unknown 12/13/2024 9:36 AM CDT 12/13/2024 9:36 AM CDT us Bernadette Cabrera MD HEMATOLOGY Final Resu lt [facility] [address] [place], [place] [id number] * (ABNORMAL) COMP METABOLIC PANEL (12/13/2024 9:36 AM CDT) Only the most recent of2 resultswithin the time period is included. SODIUM 146(H) 136 - 145 mmol/L 12/13/2024 12:17 PM [facility] POTASSIUM 4.0 3.5 - 5.1 mmol/L 12/13/2024 12:17 PM [facility] CHLORIDE 106 98 - 107 mmol/L 12/13/2024 12:17 PM [facility] CO2,TOTAL 29 22 - 29 mmol/L 12/13/2024 12:17 PM [facility] ANION GAP 11 5 - 18 12/13/2024 12:17 PM [facility] GLUCOSE 144(H) 70 - 99 mg/dL 12/13/2024 12:17 PM [facility] CALCIUM 10.0 8.8 - 10.4 mg/dL 12/13/2024 12:17 PM [facility] Comment: Reference ranges for this test were updated on 08/06/2024 to reflect our healthy population more accurately. Reference range changes are not retroactively applied to results, but previous results using the same methodology can be interpreted in the context of the new reference range. BUN 14 6 - 20 mg/dL 12/13/2024 12:17 PM [facility] CREATININE 0.92(H) 0.50 - 0.90 mg/dL 12/13/2024 12:17 PM [facility] BUN/CREAT RATIO 15 10 - 20 12:17 PM [facility] eGFR 74(L) >90 mL/min/1. 73m2 12/13/2024 12:17 PM [facility] Comment:As of 2021, eG FR is calculated by the CKD-EPI creatinine equation without race adjustment. eGFR can be influenced by muscle mass, exercise, and diet. The reported eGFR is an estimation only and is only applicable if the renal function is stable. ALBUMIN 4.0 4.0 - 4.9 g/dL 12/13/2024 12:17 PM [facility] PROTEIN,TOTAL 7.5 6.0 - 8.0 g/dL 12/13/2024 12:17 PM [facility] BILIRUBIN,TOTAL 0.2 0.0 - 1.2 mg/dL 12/13/2024 12:17 PM [facility] ALK PHOSPHATASE 151(H) 35 - 104 IU/L 12/13/2024 12:17 PM [facility] ALT (SGPT) 11 10 - 35 IU/L 12/13/2024 12:17 PM [facility] AST (SGOT) 19 10 - 35 IU/L 12/13/2024 12:17 PM [facility] Blood BLOOD SPECIMEN / Unknown [facility] / Unknown 12/13/2024 9:36 AM CDT 12/13/2024 9:36 AM CDT Bernadette Cabrera MD CHEMISTRY Final Resu lt [facility] [address] [place] [address] * (ABNORMAL) C-PEPTIDE (11/28/2024 1:00 PM ORE CRUSHER) C-PEPTIDE 0.19(L) 0.80 - 3.85 ng/mL [facility] Blood BLOOD SPECIMEN / Unknown 11/28/2024 1:00 PM ORE CRUSHER 11/28/2024 1:00 PM ORE CRUSHER us Bernadette Cabrera MD SEND OUTS Final Resu lt [facility] [place] [address] [address], [facility] [address] [place] [address] * CYCLIC CITRULLINE PEPTIDE (11/28/2024 11:03 AM ORE CRUSHER) [facility] CYCLIC CITRULLINATED PEPTIDE (CCP) AB (IGG) <16 UNITS [facility] Comment: Reference Range Negative: <20 Weak Positive: 20-39 Moderate Positive: 40-59 Strong Positive: >59 11/28/2024 11:0 3 AM ORE CRUSHER 11/28/2024 11:03 AM ORE CRUSHER us Bernadette Cabrera MD SEND OUTS Final Resu lt [facility] [address] [place] [address], [place] [phone] [facility] [employer] [address] [place] [address] * (ABNORMAL) CBC W PLT NO DIFF (11/28/2024 11:03 AM ORE CRUSHER) [facility] WHITE BLOOD CELL COUNT 8.5 3.8 - 10.8 Thousand/u L [facility] RED BLOOD CELL COUNT 4.05 3.80 - 5.10 Million/uL [facility] HEMOGLOBIN 11.3(L) 11.7 - 15.5 g/dL [facility] HEMATOCRIT 36.5 35.0 - 45.0 % [facility] MCV 90.1 80.0 - 100.0 fL [facility] MCH 27.9 27.0 - 33.0 pg [facility] MCHC 31.0(L) 32.0 - 36.0 g/dL [facility] Comment: For adults, a slight decrease in the calculated MCHC value (in the range of 30 to 32 g/dL) is most likely not clinically significant; however, it should be interpreted with caution in correlation with other red cell parameters and the patient's clinical condition. RDW 13.7 11.0 - 15.0 % [facility] PLATELET COUNT 313 140 - 400 Thousand/u L [facility] MPV 12.3 7.5 - 12.5 fL [facility] Blood BLOOD SPECIMEN / Unknown 11/28/2024 11:03 AM ORE CRUSHER 11/28/2024 11:03 AM ORE CRUSHER Bernadette Cabrera MD HEMATOLOGY Final Resu lt [facility] [address] [place] [address], [employer] [employer] [address] [place] [address] * BASIC METABOLIC PANEL (11/28/2024 11:03 AM ORE CRUSHER) Only the most recent of2 resultswithin the time period is included. GLUCOSE 81 65 - 99 mg/dL [facility] Comment: Fasting reference interval UREA NITROGEN (BUN) 23 7 - 25 mg/dL [facility] CREATININE 0.96 0.50 - 1.03 mg/dL [facility] EGFR 70 > OR = 60 mL/min/1. 73m2 [facility] BUN/CREATININE RATIO SEE NOTE: 6 - 22 (calc) [facility] Comment: Not Reported: BUN and Creatinine are within reference range. SODIUM 138 135 - 146 mmol/L [facility] POTASSIUM 4.9 3.5 - 5.3 mmol/L [facility] CHLORIDE 100 98 - 110 mmol/L [facility] CARBON DIOXIDE 31 20 - 32 mmol/L [facility] ELECTROLYTE BALANCE 7 7 - 17 mmol/L (calc) [facility] CALCIUM 9.4 8.6 - 10.4 mg/dL [facility] Blood BLOOD SPECIMEN / Unknown 11/28/2024 11:03 AM ORE CRUSHER 11/28/2024 11:03 AM ORE CRUSHER Bernadette Cabrera MD CHEMISTRY Final Resu lt [facility] [address] [place] [address], [place] [phone] [facility] [address] [place] [address] * (ABNORMAL) POCT Hemoglobin A1C Monitoring (11/28/2024 9:37 AM ORE CRUSHER) [facility] POC HEMOGLOBIN A1C 7.0(H) <6.0 % OF TOTAL HGB [facility] Comment: Any point of care results exhibiting inconsistency with the patient's clinical status should be repeated using a different testing method. Blood BLOOD SPECIMEN / Unknown 11/28/2024 9:37 AM ORE CRUSHER 11/28/2024 9:37 AM ORE CRUSHER Bernadette Cabrera MD CHEMISTRY Final Resu lt [facility] [address] [place] [address], [place] [phone] [facility] [address] [place] [address] * LIPID PANEL (11/28/2024 9:36 AM ORE CRUSHER) [facility] CHOLESTEROL, TOTAL 152 <200 mg/dL [facility] HDL CHOLESTEROL 55 > OR = 50 mg/dL [facility] TRIGLYCERIDES 116 <150 mg/dL [facility] LDL-CHOLESTEROL 77 mg/dL (calc) [facility] Comment: Reference range: <100 Desirable range <100 mg/dL for primary prevention; <70 mg/dL for patients with CHD or diabetic patients with > or = 2 CHD risk factors. LDL-C is now calculated using the Nestor calculation, which is a validated novel method providing better accuracy than the Friedewald equation in the estimation of LDL-C. Jamal TRAN et al. JOHNNY. 2013;310(19): 6362-2222 (http://education.BuldumBuldum.com.eSee/[employer]/faq/LRP860) CHOL/HDLC RATIO 2.8 <5.0 (calc) [facility] NON HDL CHOLESTEROL 97 <130 mg/dL (calc) [facility] Comment: For patients with diabetes plus 1 major ASCVD risk factor, treating to a non-HDL-C goal of <100 mg/dL (LDL-C of <70 mg/dL) is considered a therapeutic option. Blood BLOOD SPECIMEN / Unknown 11/28/2024 9:36 AM ORE CRUSHER 11/28/2024 9:36 AM ORE CRUSHER Bernadette Cabrera MD CHEMISTRY Final Resu lt Performing Organization Address City/[facility]/ZIP Co de Phone Number [facility] [place] [facility] [address] [place] [address], [place] [phone] [facility] [address] [place] [address] * (ABNORMAL) C-REACTIVE PROTEIN (11/15/2024 10:32 AM ORE CRUSHER) Pathologist [facility] C-REACTIVE PROTEIN 29.1(H) <8.0 mg/L [facility] Blood BLOOD SPECIMEN / Unknown 11/15/2024 10:32 AM ORE CRUSHER 11/15/2024 10:32 AM ORE CRUSHER Padmini Sena MD CHEMISTRY Final Re sult [facility] [place] [facility] [address] [facility] [address], [place] [phone] [facility] [address] [place] [address] * (ABNORMAL) CBC AND DIFFERENTIAL (11/15/2024 10:32 AM ORE CRUSHER) Pathologist [facility] WHITE BLOOD CELL COUNT 7.7 3.8 - 10.8 Thousand/u L [facility] RED BLOOD CELL COUNT 4.09 3.80 - 5.10 Million/uL [facility] HEMOGLOBIN 11.4(L) 11.7 - 15.5 g/dL [facility] HEMATOCRIT 36.2 35.0 - 45.0 % [facility] MCV 88.5 80.0 - 100.0 fL [facility] MCH 27.9 27.0 - 33.0 pg [facility] MCHC 31.5(L) 32.0 - 36.0 g/dL [facility] Comment: For adults, a slight decrease in the calculated MCHC value (in the range of 30 to 32 g/dL) is most likely not clinically significant; however, it should be interpreted with caution in correlation with other red cell parameters and the patient's clinical condition. RDW 13.3 11.0 - 15.0 % [facility] PLATELET COUNT 344 140 - 400 Thousand/u L [facility] MPV 12.4 7.5 - 12.5 fL [facility] ABSOLUTE NEUTROPHILS 5,113 1,500 - 7,800 cells/uL [facility] ABSOLUTE LYMPHOCYTES 1,440 850 - 3,900 cells/uL [facility] ABSOLUTE MONOCYTES 639 200 - 950 cells/uL [facility] ABSOLUTE EOSINOPHILS 470 15 - 500 cells/uL [facility] ABSOLUTE BASOPHILS 39 0 - 200 cells/uL [facility] NEUTROPHILS 66.4 % [facility] LYMPHOCYTES 18.7 % [facility] MONOCYTES 8.3 % [facility] EOSINOPHILS 6.1 % [facility] BASOPHILS 0.5 % [facility] Blood BLOOD SPECIMEN / Unknown 11/15/2024 10:32 AM ORE CRUSHER 11/15/2024 10:32 AM ORE CRUSHER us Padmini Sena MD HEMATOLOGY Final Re sult [facility] [place] [facility] [address] [place] [address], [facility] [address] [place] [address] * ECHO TTE COMPLETE WO CONTRAST (10/28/2024 9:41 AM ORE CRUSHER) AORTIC VALVE MEAN PG 5 mmHg EJECTION FRACTION 65 % LVEDD 4.3 cm Anatomical Region Laterality Modality Ultrasound 10/28/2024 9:04 AM ORE CRUSHER Narrative 10/28/2024 10:23 AM ORE CRUSHER ECHOCARDIOGRAM JENNIFER GALEANO : 1970 53 years Study Date: 10/28/2024 9:04:42 AM Gender: F BP: 160/70 mmHg Height: 152.00 cm BSA: 1.81 m Weight: 85.00 kg Tech: [facility] Referring MD: BERNADETTE CABRERA Site: [facility] [place] Reading Location: Mobile OP Patient Location: Outpatient. Procedure: 2D, Color Doppler and Spectral Doppler. Indication for study: Bilateral lower extremity edema; HTN (hypertension) Cardiac Rhythm: Regular.Study quality: Fair. Final Impressions: 1. Normal left ventricular size, normal wall thickness, normal global systolic function, calculated EF of 65 %. 2. Right ventricular cavity size is normal, global systolic RV function is normal. 3. The aortic valve is not well visualized, no stenosis and no regurgitation. 4. The mitral valve is sclerotic, trace mitral regurgitation. 5. The transmitral peak and mean gradients are 8.7 and 4.1 mmHg respectively (heart rate 89bpm). 6. Tricuspid valve is normal. 7. No pericardial effusion. Chamber Sizes and Function Normal left ventricular size, normal wall thickness, normal global systolic function, calculated EF of 65 %. No resting regional wall motion abnormality visualized. Left atrial size is normal. Left atrial pressure is normal. Right ventricular cavity size is normal, global systolic RV function is normal. RV wall thickness is normal. The right atrium is normal. Right atrial volume index is 20 ml/m . Right atrial area is 14 cm . The pulmonary artery is of normal size and origin. The sinus of Valsalva is normal sized. The ascending aorta is normal sized. Valves, RV Pressures and Diastolic Function The aortic valve is not well visualized , no stenosis and no regurgitation. The mitral valve is sclerotic, trace mitral regurgitation. Mitral annular calcification is present. Normal diastolic function. The transmitral peak and mean gradients are 8.7 and 4.1 mmHg respectively (heart rate 89bpm). The tricuspid valve is normal in structure. Tricuspid regurgitation is trace regurgitation. The pulmonic valve is not well visualized. Unable to determine pulmonary regurgitation. Masses, Effusion, Shunts There is no pericardial effusion. The inferior vena cava is normal sized, respiratory size variation greater than 50%. No left to right shunting was detected by limited color flow Doppler interrogation of the interatrial septum. MEASUREMENTS AND CALCULATIONS 2-D Measurements and LV Function: LVID (d) 4.3 cm Planimetered EF 65 % LVID (s) 2.8 cm LV FS% (2D) 36 % IVS (d) 1.0 cm LVOT diameter 1.9 cm LVPW (d) 1.2 cm HR 89 bpm Ao Sinus 2.7 cm LA Vol index 17 ml/m2 Asc Ao 2.8 cm RA Vol index 20 ml/m2 RA area 14 cm RV Max 4C (d) 4.2 cm Diastology: Tissue Doppler e', Septum 0.10 m/s e', Lateral 0.09 m/s Aortic Valve: Vmax 1.6 m/s BALTA (V) 2.08 cm VTI 0.34 m BALTA (I) 2.44 cm LVOT V max 1.1 m/s Max PG 10 mmHg LVOT VTI 0.28 m Mean PG 5 mmHg SV 82 ml Dim Index 0.82 SV index 45 ml/m CO 7.3 l/min CI 4.0 l/min/m Mitral Valve: MV Mean G 5 mmHg MV VTI 0.30 m Tricuspid Valve and estimated PA pressures: TAPSE 2.7 cm . This study was interpreted by an [facility] accredited facility. Final Procedure Note Carolyn Dias, [facility] - 10/28/2024 ECHOCARDIOGRAM JENNIFER GALEANO : 1970 53 years Study Date: 10/28/2024 9:04:42 AM Gender: F BP: 160/70 mmHg Height: 152.00 cm BSA: 1.81 m Weight: 85.00 kg Tech: [facility] Referring MD: BERNADETTE CABRERA Site: [facility] [place] Reading Location: Mobile OP Patient Location: Outpatient. Procedure: 2D, Color Doppler and Spectral Doppler. Indication for study: Bilateral lower extremity edema; HTN(hypertension) Cardiac Rhythm: Regular.Study quality: Fair. Final Impressions: 1. Normal left ventricular size, normal wall thickness, normal globalsystolic function, calculated EF of 65 %. 2. Right ventricular cavity size is normal, global systolic RV functionis normal. 3. The aortic valve is not well visualized, no stenosis and noregurgitation. 4. The mitral valve is sclerotic, trace mitral regurgitation. 5. The transmitral peak and mean gradients are 8.7 and 4.1 mmHgrespectively (heart rate 89bpm). 6. Tricuspid valve is normal. 7. No pericardial effusion. Chamber Sizes and Function Normal left ventricular size, normal wall thickness, normal globalsystolic function, calculated EF of 65 %. No resting regional wall motionabnormality visualized. Left atrial size is normal. Left atrial pressureis normal. Right ventricular cavity size is normal, global systolic RVfunction is normal. RV wall thickness is normal. The right atrium isnormal. Right atrial volume index is 20 ml/m . Right atrial area is 14cm . The pulmonary artery is of normal size and origin. The sinus ofValsalva is normal sized. The ascending aorta is normal sized. Valves, RV Pressures and Diastolic Function The aortic valve is not well visualized , no stenosis and noregurgitation. The mitral valve is sclerotic, trace mitral regurgitation.Mitral annular calcification is present. Normal diastolic function. Thetransmitral peak and mean gradients are 8.7 and 4.1 mmHg respectively(heart rate 89bpm). The tricuspid valve is normal in structure. Tricuspidregurgitation is trace regurgitation. The pulmonic valve is not wellvisualized. Unable to determine pulmonary regurgitation. Masses, Effusion, Shunts There is no pericardial effusion. The inferior vena cava is normal sized,respiratory size variation greater than 50%. No left to right shunting wasdetected by limited color flow Doppler interrogation of the interatrialseptum. MEASUREMENTS AND CALCULATIONS 2-D Measurements and LV Function: LVID (d) 4.3 cm Planimetered EF 65 % LVID (s) 2.8 cm LV FS% (2D) 36 % IVS (d) 1.0 cm LVOT diameter 1.9 cm LVPW (d) 1.2 cm HR 89 bpm Ao Sinus 2.7 cm LA Vol index 17 ml/m2 Asc Ao 2.8 cm RA Vol index 20 ml/m2 RA area 14 cm RV Max 4C (d) 4.2 cm Diastology: Tissue Doppler e', Septum 0.10 m/s e', Lateral 0.09 m/s Aortic Valve: Vmax 1.6 m/s BALTA (V) 2.08 cm VTI 0.34 m BALTA (I) 2.44 cm LVOT V max 1.1 m/s Max PG 10 mmHg LVOT VTI 0.28 m Mean PG 5 mmHg SV 82 ml Dim Index 0.82 SV index 45 ml/m CO 7.3 l/min CI 4.0 l/min/m Mitral Valve: MV Mean G 5 mmHg MV VTI 0.30 m Tricuspid Valve and estimated PA pressures: TAPSE 2.7 cm . This study was interpreted by an IAC accredited facility. Final us Bernadette Cabrera MD ECHO ORD Final Resu lt * SCAN-LABORATORY REPORT (10/15/2024 12:00 AM ORE CRUSHER) Only the most recent of3 resultswithin the time period is included. us Scanner OTHER Final Result * XR MAMMO MACHO BILAT SCREEN (02/27/2024 2:35 PM CDT) Anatomical Region Laterality Modality BREASTS, Breast Left, Breast Right Bilateral Mammography Impressions 02/28/2024 2:42 PM CDT There is no radiographic evidence for malignancy. Recommend annual mammograms. MAMMOGRAM ASSESSMENT: ACR 1 Negative PATIENTS: You will also receive a letter with your examination results in an easy to read format. If you have questions about your results, please contact your referring provider. Narrative 02/28/2024 2:42 PM CDT For Patients: As a result of the Century Cures Act, medical imaging exams and procedure reports are released immediately into your electronic medical record. You may view this report before your referring provider. If you have questions, please contact your health care provider. XR MAMMO MACHO BILAT SCREEN [[id number]] CLINICAL HISTORY: This is an asymptomatic 53 y.o. patient. INDICATION FOR EXAM: Mammogram Screening. TECHNIQUE: CC & MLO views were obtained. This study was evaluated with the assistance of Computer-Aided Detection. Breast Tomosynthesis was used in interpretation. COMPARISON FILM: Yes 11/08/22 [facility] 06/29/21 [facility] FINDINGS: The breasts are extremely dense, which lowers the sensitivity of mammography. There are no dominant masses, suspicious micro calcifications or areas of architectural distortion. us eBrnadette Cabrera MD MAMMO Final Resu lt * sDNA-FIT External (Cologuard) [[id number]] (08/20/2023 8:14 PM ORE CRUSHER) NONINV COLON CA DNA+OCC BLD SCRN STL-IMP Negative Negative 08/31/2023 3:41 AM ORE CRUSHER [facility] (CLIA #:[id number]) Comment: NEGATIVE TEST RESULT. A negative Cologuard result indicates a low likelihood that a colorectal cancer (CRC) or advanced adenoma (adenomatous polyps with more advanced pre-malignant features) is present. The chance that a person with a negative Cologuard test has a colorectal cancer is less than 1 in 1500 (negative predictive value >99.9%) or has an advanced adenoma is less than 5.3% (negative predictive value 94.7%). These data are based on a prospective cross-sectional study of 10,000 individuals at average risk for colorectal cancer who were screened with both Cologuard and colonoscopy. (Homar Jason et al, N Engl J Med 2014;370(14):3413-6850) The normal value (reference range) for this assay is negative. COLOGUARD RE-SCREENING RECOMMENDATION: Periodic colorectal cancer screening is an important part of preventive healthcare for asymptomatic individuals at average risk for colorectal cancer. Following a negative Cologuard result, the [place] Cancer Society and U.S. Multi-Society Task Force screening guidelines recommend a Cologuard re-screening interval of 3 years. References: [employer] Society Guideline for Colorectal Cancer Screening: https://www.cancer.org/cancer/sctgz-jfjpqt-uhxuey/yvvvewmya-dxqydgvov-estnjav/ac s-rec ommendations.html.; Hood MALDONADO, Renan DAMON, Paty ZAMBRANO, Colorectal Cancer Screening: Recommendations for Physicians and Patients from the U.S. Multi-Society Task Force on Colorectal Cancer Screening , Am J Gastroenterology 2017; 112:6528-6901. TEST DESCRIPTION: Composite algorithmic analysis of stool DNA-biomarkers with hemoglobin immunoassay. Quantitative values of individual biomarkers are not reportable and are not associated with individual biomarker result reference ranges. Cologuard is intended for colorectal cancer screening of adults of either sex, 45 years or older, who are at average-risk for colorectal cancer (CRC). Cologuard has been approved for use by the U.S. FDA. The performance of Cologuard was established in a cross sectional study of average-risk adults aged 50-84. Cologuard performance in patients ages 45 to 49 years was estimated by sub-group analysis of near-age groups. Colonoscopies performed for a positive result may find as the most clinically significant lesion: colorectal cancer [4.0%], advanced adenoma (including sessile serrated polyps greater than or equal to 1cm diameter) [20%] or non- advanced adenoma [31%]; or no colorectal neoplasia [45%]. These estimates are derived from a prospective cross-sectional screening study of 10,000 individuals at average risk for colorectal cancer who were screened with both Cologuard and colonoscopy. (Homar Yates. et al, N Engl J Med 2014;370(14):3200-5255.) Cologuard may produce a false negative or false positive result (no colorectal cancer or precancerous polyp present at colonoscopy follow up). A negative Cologuard test result does not guarantee the absence of CRC or advanced adenoma (pre-cancer). The current Cologuard screening interval is every 3 years. ([place] Cancer Society and U.S. Multi-Society Task Force). Cologuard performance data in a 10,000 patient pivotal study using colonoscopy as the reference method can be accessed at the following location: www.Soup.io/results. Additional description of the Cologuard test process, warnings and precautions can be found at www.cologuard.com. Stool specimen (specimen) (Rectum) 08/20/2023 8:14 PM ORE CRUSHER 08/22/2023 5:49 PM ORE CRUSHER Bernadette Cabrera MD URINE Final Resu lt Performing Organization Address City/[facility]/ZIP Co de Phone Number [email or web address] (CLIA #:[id number]) [address] [place] [address], * LC HCV ANTIBODY RFX TO QUANT PCR (05/11/2023 11:25 AM CDT) HCV Ab Non Reactive Non Reactive 05/14/2023 8:36 AM CDT [facility] ([facility]) Blood BLOOD SPECIMEN / Unknown Venipuncture / Unknown 05/11/2023 11:25 AM CDT 05/11/2023 11:26 AM CDT Narrative [facility] ([facility]) - 05/14/2023 8:36 AM CDT Performed at: [address] [place] [id number] Customer Marketing Manager: Klaus Rojas MD, Phone: [phone] Bernadette Cabrera MD LABORATORY Final Resu lt Performing Organization Address City/[facility]/ZIP Co de Phone Number [facility] ([facility]) [address] [place] [address] * LC HIV-1/O/2, 4TH GENERATION (05/11/2023 11:25 AM CDT) HIV Scr 4th Gen Non Reactive Non Reactive 05/14/2023 8:36 AM CDT [facility] ([facility]) Comment: HIV Negative HIV-1/HIV-2 antibodies and HIV-1 p24 antigen were NOT detected. There is no laboratory evidence of HIV infection. Blood BLOOD SPECIMEN / Unknown Venipuncture / Unknown 05/11/2023 11:25 AM CDT 05/11/2023 11:26 AM CDT N[facility]ative [facility] - 05/14/2023 8:36 AM CDT Performed at: [id number] [place], [place] [id number] Customer Marketing Manager: Klaus Rojas MD, Phone: [phone] us Bernadette Cabrera MD LABORATORY Final Resu lt [facility] ([facility]) [facility] [id number], * FILE KEEPER THIN PREP PAP SCREEN IMAGED (06/09/2020 9:35 AM CDT) Case Report Gynecologic Cytology Report Case: [id number] Authorizing Provider: Bernadette Cabrera MD Collected: 06/09/2020 0935 Ordering Location: [facility] Received: 06/09/2020 1124 Clinic First Screen: Nicole Mak Specimen: FILE KEEPER ThinPrep Vial Screening, Cervical 06/18/2020 8:23 AM CDT [facility] [employer] ENTRAL LABORATORY INTERPRETATION/ RESULT NEGATIVE FOR INTRAEPITHELIAL LESION OR MALIGNANCY (NIL) (none) 06/18/2020 8:23 AM CDT [facility] NISM(S) 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 06/18/2020 8:23 AM CDT [facility] SPECIMEN ADEQUACY Satisfactory for evaluation No endocervical component seen 06/18/2020 8:23 AM CDT [facility] HPV REQUEST HPV and PAP 06/18/2020 8:23 AM CDT [facility] [employer] ENTRAL LABORATORY Date of LMP Years ago due to ablation 06/18/2020 8:23 AM CDT [facility] Last Pap Date 03/30/17 06/18/2020 8:23 AM CDT [facility] Last Pap Result NIL 0 8:23 AM CDT [facility] ENTRAL LABORATORY Abnormal Pap or [place] Bx in last 5 years No 06/18/2020 8:23 AM CDT [facility] Menstrual Status Postmenopausal 06/18/2020 8:23 AM CDT [facility] [place] Bx Done Today No 06/18/2020 8:23 AM CDT [facility] Additional Information None given 06/18/2020 8:23 AM CDT [facility] Comment: Cytology is screened at [facility] - [address], [place] [address] and [facility] - [address], [place] [address] and [facility] - [address] [place] [address] Interpreted at [facility] - [address], [place] [address] Automated Review Successful 06/18/2020 8:23 AM CDT [facility] Comment:Specimen processed s uccessfully by automated padded box sewer device, ThinPrep Imaging System, [employer] ANCILLARY TESTING FILE KEEPER HPV Ordered, Please see separate report 06/18/2020 8:23 AM CDT [facility] Note The pap test is a screening technique, not a diagnostic procedure. It is used primarily to screen for squamous cancers and precursor lesions. Published studies have shown that it is subject to both false negative and false positive results. The pap test should not be used as the sole means to diagnose or exclude pre-malignant and malignant lesions. 06/18/2020 8:23 AM CDT [facility] Other (Cervical) Non-Blood / Unknown 06/09/2020 9:35 AM CDT 06/09/2020 11:24 AM CDT us Bernadette Cabrera MD PATHOLOGY/CYTOLOGY Final R esult [facility] [address] [place] [address], [place] from Last 3 Months or Most Recently Relevant to Health Maintenance Insurance MEDICARE PART A [place] ONLY MEDICAID MEDICARE [place] ONLY MEDICARE PART B [place] ONLY MEDICARE PPS MEDICAID Advance Directives * Full Code (Latest Code Status on File) Date Activated Date Inactivated Comments 02/20/2022 10:43 PM 02/25/2022 7:56 PM Question Answer Comments Code Status Discussion: Reviewed Preferences * Full Code Date Activated Date Inactivated Comments 01/14/2022 5:24 PM 01/16/2022 4:00 PM Question Answer Comments Code Status Discussion: Unable to Assess Preferences, Provider to review later * Full Code Date Activated Date Inactivated Comments 06/18/2019 5:36 PM 06/23/2019 4:18 PM * Full Code Date Activated Date Inactivated Comments 04/26/2016 6:39 PM 04/29/2016 4:05 PM * Full Code Date Activated Date Inactivated Comments 04/26/2016 8:37 AM 04/26/2016 2:34 PM Care Teams Supervisor Operations Relationship Specialty Start Date End Date Bernadette Cabrera MD Aleida GUERRAFORMERLY [facility] [place] [address] PCP - General Family Practice 10/14/13 [facility] [address] [address] 01/16/22
--- OUTSIDE RECORDS SUMMARY | 2024-12-19 08:26 | XMS_ITS | Encounter Summary ---
Author Organization [place] Address [facility] [place] [address] Care Team Providers Care Labeler Name Role Phone David Parisi MD Primary Care Provider Uriel Mercedes MD Unavailable Brandon Parikh MD Unavailable Reason for Visit * Reason Onset Date Comments Prior Auth - Medication 04/27/2023 LamoTRIg ine (LAMICTAL) 200 MG ER tablet - APPROVED Encounter Details Date Type Department Care Team (Late st Contact Info) Description 04/27/2023 Telephone [facility] [address] [phone] [place] [address] [place] [id number] Prior Auth - Medication (LamoTRIgine (LAMICTAL) 200 MG ER tablet - APPROVED) Social History Tobacco Use Types Packs/Day Years Used Date Smoking Tobacco: Never Smokeless Tobacco: Never Alcohol Use Standard Drinks/Week Comments Not Currently 0 (1 standard drink = 0.6 oz pur e alcohol) PHQ-2 Answer Date Recorded PHQ-2 Score 1 04/11/2023 Comments No Sex and Gender Information Value Date Recorded Sex Assigned at Not on file 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 No / Unsure 04/27/2023 10:44 AM CDT documented as of this encounter Miscellaneous Notes * Telephone Encounter - Chana Jeffers - 06/27/2023 4:40 PM CDT Images from the original note were not included. Prior Authorization Approval Medication: LAMOTRIGINE ER 200 MG PO TB24 Authorization Effective Date: 05/24/2023 Authorization Expiration Date: 06/24/2024 Approved Dose/Quantity: 30 FOR 30 DAYS Insurance Company: [employer] Part D - Which Pharmacy is filling the prescription: [facility] - [place], [place] - [facility] Notified: YES Patient Notified: YES - FILLED AND PICKED UP * Telephone Encounter - Ramón Vega - 06/24/2023 9:04 AM CDT Images from the original note were not included. Central Prior Authorization Team PA Initiation I closed this encounter somehow at some point when it was meant to be postponed untilthe PA . Medication: LAMOTRIGINE ER 200 MG PO TB24 Insurance Company: [employer] Part D - Pharmacy Filling the Rx: Filling Pharmacy Phone: Filling Pharmacy Fax: Start Date: 06/24/2023 * Telephone Encounter - Ramón Vega - 04/27/2023 12:26 PM CDT Images from the original note were not included. Central Prior Authorization Team documented in this encounter Plan of Treatment Upcoming Encounters Date Type Department Care Team (Late st Contact Info) Description 05/29/2025 9:40 AM CDT Ancillary Procedure [facility] [place] [address] [facility] [address] 1st [place] [phone] Uriel Mercedes MD [address] [address] 05/29/2025 10:40 AM CDT Office Visit [facility] [place] [address] [facility] [address] 4[address] [place] [phone] Uriel Mercedes MD [address] [place] [id number] documented as of this encounter Visit Diagnoses Not on filedocumented in this encounter Care Teams Labeler Relationship Specialty Start Date End Date David Parisi MD [address] [place] [address] PCP - General 03/16/23 Uriel Mercedes MD [address] [place] [address] Assigned Musculoskeletal Provider 03/25/23 Brandon Parikh MD [address] [place] [address] Assigned Neuroscience Provider 04/29/23 11/23/24 documented as of this encounter
--- OUTSIDE RECORDS SUMMARY | 2024-12-19 08:26 | XMS_ITS | Clinical Summary ---
Author Organization [facility] Address [address] [place] [address] Care Team Providers Care Corrosion Control Specialist Name Role Phone David Parisi MD Primary Care Provider [phone] Uriel Mercedes MD Unavailable Allergies Active Allergy Reactions Criticality Noted Date Comments Gluten Meal 06/03/2023 Ibuprofen Other (See Comments) Low 10/10/2014 Other reaction(s): Other (see comments) Retinal hemorrhage Penicillins Rash Low 02/07/2010 Other reaction(s): rash Med hx shows prescriptions for Ceftin #20 05/2013 & Keflex #21 10/2016 Med hx shows prescriptions for Ceftin #20 05/2013 & Keflex #21 10/2016 ##No similarities in side chains, very low to no risk of cross-sensitivity to ANCEF. ANW Antimicrobial Stewardship Team 07/2019 Wheat Dizziness,Nausea Low 08/15/2022 Medications aspirin 81 MG EC tablet Take 81 mg by mouth every morning Active atorvastatin (LIPITOR) 10 MG tablet Take 10 mg by mouth daily (with dinner) 3 Active betamethasone dipropionate (DIPROSONE) 0.05 % external cream Apply topically as needed 1 Active DULoxetine (CYMBALTA) 20 MG capsule Take 40 mg by mouth every evening 3 Active meclizine (ANTIVERT) 12.5 MG tablet Take 12.5 mg by mouth 3 times daily as needed for nausea 3 Active Multiple Vitamin (ONE-A-DAY ESSENTIAL) TABS Take 1 tablet by mouth every morning Active zolpidem (AMBIEN) 5 MG tablet Take 5 mg by mouth nightly as needed for sleep 3 Active calcium carbonate 500 mg, elemental, (OSCAL 500) 1250 (500 Ca) MG TABS tablet Take 1 tablet by mouth 2 times daily Active Vitamin D3 (CHOLECALCIFEROL) 25 mcg (1000 units) tablet Take 25 mcg by mouth every evening Active cycloSPORINE (RESTASIS) 0.05 % ophthalmic emulsion Place 1 drop into both eyes 2 times daily as needed for dry eyes prn Active LamoTRIgine (LAMICTAL) 200 MG [id number]:P artial symptomatic epilepsy with complex partial seizures, not intractable, without status epilepticus (H) Take 200 mg by mouth At Bedtime Taken with 250 mg dose for total 450 mg dose 30 tablet 3 Active LamoTRIgine (LAMICTAL) 250 MG ER tabletIndications :Partial symptomatic epilepsy with complex partial seizures, not intractable, without status epilepticus (H) Take 1 tablet (250 mg) by mouth At Bedtime Taken with 200 mg dose for total 450 mg dose 30 tablet 3 Active vitamin C (ASCORBIC ACID) 500 MG tablet Take 500 mg by mouth every morning Active Melatonin 10 MG TABS tablet Take 10 mg by mouth at bedtime Active acetaminophen (TYLENOL) 325 MG tabletIndications :S/P spinal fusion,S/P lumbar spinal fusion Take 2 tablets (650 mg) by mouth every 6 hours as needed for other (For optimal non-opioid multimodal pain management to improve pain control.) 60 tablet 3 Active Lacosamide (VIMPAT) 100 MG TABS tabletIndications :Partial symptomatic epilepsy with complex partial seizures, not intractable, without status epilepticus (H) Take 1 tablet (100 mg) by mouth 2 times daily for 90 days PLEASE CALL TO SCHEDULE FOLLOW UP APPT 180 tablet 4 Active pregabalin (LYRICA) 150 MG capsuleIndication s:S/P spinal fusion,S/P lumbar spinal fusion Take 1 capsule (150 mg) by mouth 2 times daily for 90 days PLEASE CALL TO SCHEDULE FOLLOW UP APPT 180 capsule 4 Active albuterol (PROAIR HFA/PROVENTIL HFA/VENTOLIN HFA) 108 (90 Base) MCG/ACT inhaler Inhale 1-2 puffs into the lungs every 6 hours as needed for shortness of breath 4 Active diclofenac (VOLTAREN) 1 % topical gel Apply 2 g topically 4 times daily as needed for moderate pain 4 Active ferrous sulfate (FE TABS) 325 (65 Fe) MG EC tablet Take 325 mg by mouth daily (with dinner) 4 Active pramipexole (MIRAPEX) 0.125 MG tablet Take 0.125 mg by mouth at bedtime 4 Active Insulin Disposable Pump (OMNIPOD 5 G6 PODS, GEN 5,) [facility] Basal rate #1 (2525-3074): 0.8 units/hr Basal rate #2 (2757-8457): 0.85 units/hr 4 Active polyethylene glycol (MIRALAX) 17 GM/Dose powderIndications :Fusion of lumbar spine Take 17 g by mouth daily 510 g 4 Active tiZANidine (ZANAFLEX) 2 MG tabletIndications :Fusion of lumbar spine Take 1 tablet (2 mg) by mouth 3 times daily as needed for muscle spasms 30 tablet 4 Active oxyCODONE (ROXICODONE) 5 MG tabletIndications :Fusion of lumbar spine,S/P spinal fusion Take 1 tablet (5 mg) by mouth every 6 hours as needed for severe pain 28 tablet 4 Active amLODIPine (NORVASC) 5 MG tablet Take 1 tablet by mouth daily. 4 Active rOPINIRole (REQUIP) 0.5 MG tablet Take 0.5 mg by mouth daily as needed. 4 Active furosemide (LASIX) 20 MG tablet Take 40 mg by mouth daily. 4 Active doxycycline hyclate (VIBRA-TABS) 100 MG tablet Take 100 mg by mouth 2 times daily. 5 Active Active Problems Problem Noted Date Diagnosed Date Fusion of lumbar spine 03/20/2024 S/P spinal fusion 06/02/2023 S/P lumbar spinal fusion 04/26/2023 Diabetes mellitus, type 2 04/26/2023 Lumbar disc herniation 10/23/2015 HTN (hypertension) 09/08/2015 Celiac disease 08/06/2014 Overview (04/26/2023): EGD 08/2014 celiac disease Insulin pump in place 04/01/2014 Overview (04/26/2023): Recurrent major depressive disorder, in partial remission 09/04/2012 Dyslipidemia 02/05/2010 Nonintractable epilepsy with complex partial sei zures 02/05/2010 Encounters Date Type Department Care Team Description 12/05/2024 8:40 AM SKIAGRAPHER Office Visit [facility] [address] [place] [phone] Uriel Mercedes MD S/P lumbar spinal fusion (Primary Dx) 12/05/2024 8:20 AM SKIAGRAPHER Ancillary Procedure [facility] [address] [place] [phone] Uriel Mercedes MD S/P spinal fusion; Herniated lumbar intervertebral disc; History of fusion of cervical spine; Status post lumbar spinal fusion 12/05/2024 Orders Only [facility] [address] [phone] Uriel Mercedes MD S/P lumbar spinal fusion (Primary Dx); Herniated lumbar intervertebral disc; Status post lumbar spinal fusion 12/05/2024 Travel 11/13/2024 Orders Only [facility] [address] [phone] Uriel Mercedes MD S/P spinal fusion (Primary Dx); Herniated lumbar intervertebral disc; History of fusion of cervical spine; Status post lumbar spinal fusion from Last 3 Months Family History Medical History Relation Comments Anesthesia Reaction No family hx of Venous thrombosis No family hx of Social History Tobacco Use Types Packs/Day Years Used Date Smoking Tobacco: Never Smokeless Tobacco: Never Tobacco Cessation:Counseling Given: Not Answered Alcohol Use Standard Drinks/Week Comments Not Currently 0 (1 standard drink = 0.6 oz pur e alcohol) PHQ-2 Answer Date Recorded PHQ-2 Score 0 03/04/2024 Adolescent Education Answer Date Record ed Getting School Help Needed Not on file 06/24 Comments No Sex and Gender Information Value Date Recorded Sex Assigned at Not on file Legal Sex Female 5:08 AM SKIAGRAPHER Gender Identity Not on file Sexual Orientation Not on file Last Filed Vital Signs Vital Sign Reading Time Taken Comments Blood Pressure 140/58 03/23/2024 3:22 PM CDT Pulse 88 03/23/2024 3:22 PM CDT Temperature 36.9 C (98.4 F) 03/23/2024 3:22 PM CDT Respiratory Rate 16 03/23/2024 3:22 PM CDT Oxygen Saturation 98% 03/23/2024 3:22 PM CDT Inhaled Oxygen Concentration - - Weight 88.5 kg (195 lb) 05/02/2024 1:22 PM CDT Height 152.9 cm (5' 0.2) 05/02/2024 1:22 PM CD T Body Mass Index 37.83 05/02/2024 1:22 PM CDT Plan of Treatment Upcoming Encounters Date Type Department Care Team (Late st Contact Info) Description 05/29/2025 9:40 AM CDT Ancillary Procedure [facility] [address] [place] [phone] Uriel Mercedes MD [address] [place] [phone] 05/29/2025 10:40 AM CDT Office Visit [facility] [address] [place] [phone] Uriel Mercedes MD [address] [place] [phone] Health Maintenance Due Date Last Done Comments ADVANCE CARE PLANNING 1969 ANNUAL REVIEW OF HM ORDERS 1969 CT COLONOGRAPHY 1969 DEPRESSION ACTION PLAN 1969 DIABETIC FOOT EXAM 1969 FIT 1969 FLEX SIG 1969 LIPID 1969 MICROALBUMIN 1969 PHQ-9 1969 COLONOSCOPY 1979 PAP 06/09/2023 06/09/2020 A1C 07/12/2023 04/11/2023 MEDICARE ANNUAL WELLNESS VISIT 10/31/2023 10/31/2022, 01/10/2022, 09/11/2020 BMP 03/20/2025 03/20/2024, 09/0 04/2023, 06/07/2023, Additional history exists EYE EXAM 05/24/2025 05/24/2024, 03/15/2023 MAMMO SCREENING 02/26/2026 02/27/2024, 01/31, 11/08/2022, Additional history exists COLORECTAL CANCER SCREENING 08/20/2026 sDNA (Cologuard) 08/20/2026 08/20/2023, , 07/15/2020 DTAP/TDAP/TD IMMUNIZATION (4 - Td or Tdap) 06/13/2030 06/13/2020, 01/25/2010, 01/28/2008 HEPATITIS B IMMUNIZATION Completed 015, 09/04/2014, 06/12/2014 ZOSTER IMMUNIZATION Completed 09/15/2020, Pneumococcal Vaccine: 50+ Years Completed 04/19/2022, 04/12/2019, 03/02/2007, Additional history exists HEPATITIS C SCREENING Completed 05/11/2023 HIV SCREENING Completed 05/11/2023 COVID-19 Vaccine Completed 06/17/2024, , 07/25/2022, Additional history exists INFLUENZA VACCINE Completed 06/17/2024, , 07/25/2022, Additional history exists HPV IMMUNIZATION Aged Out No longer e ligible based on patient's age to complete this topic MENINGITIS IMMUNIZATION Aged Out No l onger eligible based on patient's age to complete this topic Medical Devices Implanted Type Area Hr Payroll Coordinator Device Identifier Shelf Expiration Date Model / Serial / Lot Graft Bn Canc 30cc Crs 1-10mm [id number] - [id number] Implanted:Qty : 1 on 06/02/2023 by Uriel Mercedes MD at [facility] Bone/Tissu e/Biologic N/A: Spine Lumbar [employer] 05/18/2026 [id number] / [id number] / [id number] Graft Bn Can 30cc Crs 1-10mm [id number] - [id number] Implanted:Qty : 1 on 06/02/2023 by Uriel Mercedes MD at [facility] Bone/Tissu e/Biologic N/A: Spine Lumbar [employer] 05/14/2026 [id number] / [id number] / [id number] Graft Bn Can 30cc Crs 1-10mm [id number] - [id number] Implanted:Qty : 1 on 03/20/2024 by Uirel Mercedes MD at [facility] Bone/Tissu e/Biologic N/A: Spine Lumbar [employer] 09/06/2026 [id number] / [id number] / [id number] Imp Scr Medt 5.5/6.0mm Solera 7.5x55mm Ma [id number] - [id number] Implanted:Qty : 1 on 06/02/2023 by Uriel Mercedes MD at [facility] Metallic Hardware/A nchor N/A: Spine Lumbar [employer] [id number] 12/16/2030 [id number] / / [id number] Imp Scr Medt 5.5/6.0mm Solera 7.5x40mm Ma [id number] - [id number] Implanted:Qty : 1 on 06/02/2023 by Uriel Mercedes MD at [facility] Metallic Hardware/A nchor N/A: Spine Lumbar [employer] [id number] / / Screw Bn 90mm 9.5mm Ma Cnn Ns Cd Hzn Spne Lf Bs Cnmas Tc - [id number] Implanted:Qty : 2 on 06/02/2023 by Uriel Mercedes MD at [facility] Metallic Hardware/A nchor N/A: Spine Lumbar [employer] [id number] / / Imp Rupert Medt Solera Lined 5.9r766hi Chr [id number] - [id number] Implanted:Qty : 1 on 06/02/2023 by Uriel Mercedes MD at [facility] Metallic Hardware/A nchor N/A: Spine Lumbar [employer] [id number] / / Imp Scr Medt 5.5/6.0mm Solera 7.5x50mm Ma [id number] - [id number] Implanted:Qty : 1 on 06/02/2023 by Uriel Mercedes MD at [facility] Metallic Hardware/A nchor N/A: Spine Lumbar [employer] [id number] 05/09/2031 [id number] / / [id number] Imp Spnl [place]use [place] 10.5 Mm X 90 Mm [id number] - [id number] Implanted:Qty : 1 on 06/02/2023 by Uriel Mercedes MD at [facility] Metallic Hardware/A nchor N/A: Spine Lumbar [employer] [id number] 03/22/2028 [id number] / [id number] / Imp Spnl Ifuse [place] 10.5 Mm X 90 Mm [id number] - [id number] Implanted:Qty : 1 on 06/02/2023 by Uriel Mercedes MD at [facility] Metallic Hardware/A nchor N/A: Spine Lumbar [employer] [id number] 03/22/2028 [id number] / [id number] / Imp Scr Set Medt Solera Break Off 5.5mm Ti [id number] - [id number] Implanted:Qty : 12 on 06/02/2023 by Uriel Mercedes MD at [facility] Metallic Hardware/A nchor N/A: Spine Lumbar [employer] [id number] / / Imp Scr Medt 5.5/6.0mm Solera 6.5x50mm Ma [id number] - [id number] Implanted:Qty : 2 on 06/02/2023 by Uriel Mercedes MD at [facility] Metallic Hardware/A nchor N/A: Spine Lumbar [employer] [id number] / / Imp Scr Medt 5.5/6.0mm Solera 9.5x50mm Ma [id number] - [id number] Implanted:Qty : 1 on 06/02/2023 by Uriel Mercedes MD at [facility] Metallic Hardware/A nchor N/A: Spine Lumbar [employer] [id number] / / Imp Scr Medt 5.5/6.0mm Solera 7.5x45mm Ma [id number] - [id number] Implanted:Qty : 1 on 06/02/2023 by Uriel Mercedes MD at [facility] Metallic Hardware/A nchor N/A: Spine Lumbar [employer] [id number] / / Imp Scr Medt 5.5/6.0mm Solera 8.5x50mm Ma [id number] - [id number] Implanted:Qty : 1 on 06/02/2023 by Uriel Mercedes MD at [facility] Metallic Hardware/A nchor N/A: Spine Lumbar [employer] [id number] / / Imp Scr Medt 5.5/6.0mm Solera 6.5x45mm Ma [id number] - [id number] Implanted:Qty : 2 on 03/20/2024 by Uriel Mercedes MD at [facility] Metallic Hardware/A nchor N/A: Spine Lumbar [employer] 03/20/2024 [id number] / / Imp Scr Medt 5.5/6.0mm Solera 6.5x50mm Ma [id number] - [id number] Implanted:Qty : 2 on 03/20/2024 by Uriel Mercedes MD at [facility] Metallic Hardware/A nchor N/A: Spine Lumbar [employer] 03/20/2024 [id number] / / Imp Spacer Medt Capstone 8x22mm 0deg Ir [id number] - [id number] Implanted:Qty : 1 on 03/20/2024 by Uriel Mercedes MD at [facility] Metallic Hardware/A nchor N/A: Spine Lumbar [employer] [id number] 12/16/2029 [id number] / / [id number] Imp Scr Set Medt Solera Break Off 5.5mm Ti [id number] - [id number] Implanted:Qty : 8 on 03/20/2024 by Uriel Mercedes MD at [facility] Metallic Hardware/A nchor N/A: Spine Lumbar [employer] [id number] / / N/A Imp Rupert Medt Solera Lined 5.0x132sm Chr [id number] - [id number] Implanted:Qty : 1 on 03/20/2024 by Uriel Mercedes MD at [facility] Metallic Hardware/A nchor N/A: Spine Lumbar [employer] [id number] / / N/A Imp Connector Medt Horizon Closed 5.5mm [id number] - [id number] Implanted:Qty : 2 on 03/20/2024 by Uriel Mercedes MD at [facility] Metallic Hardware/A nchor N/A: Spine Lumbar [employer]-DANEK [id number] / / N/A Imp Scr Set [place] Medt 5.5 To 5.5mm [id number] - [id number] Implanted:Qty : 2 on 03/20/2024 by Uriel Mercedes MD at [facility] Metallic Hardware/A nchor N/A: Spine Lumbar [employer] [id number] / / Imp Scr [place] Legacy Breakoff Set 5.5mm Ti [id number] - [id number] Implanted:Qty : 2 on 03/20/2024 by Uriel Mercedes MD at [facility] Metallic Hardware/A nchor N/A: Spine Lumbar [employer]-DANEK [id number] / / N/A Graft Bone Infuse Bmp Lg [id number] - [id number] Implanted:Qty : 1 on 06/02/2023 by Uriel Mercedes MD at [facility] N/A: Spine Lumbar [employer] 11/30/2024 [id number] / / [id number] Capstone Control Ptc Spinal System Spacer [id number], 18 Deg, Peek/Ti/Ta Implanted:Qty : 4 on 06/02/2023 by Uriel Mercedes MD at [facility] N/A: Spine Lumbar [employer] 06/10/2030 [id number] / / [id number] Unid Exp Cocr Rupert 5.5mm 4+ Lv Implanted:Qty : 2 on 06/02/2023 by Uriel Mercedes MD at [facility] N/A: Spine Lumbar [employer] 07/31/2023 [id number] / / [id number] Graft Bone Infuse Bmp Sm [id number] - [id number] Implanted:Qty : 1 on 03/20/2024 by Uriel Mercedes MD at [facility] N/A: Spine Lumbar [employer] 04/01/2025 [id number] / / [id number] Explanted Type Area Hr Payroll Coordinator Device Identifier Shelf Expiration Date Model / Serial / Lot All Spinal Fusion Hardware Removed And Discarded As Indicated By Dr. Mercedes Consistent With The Revision Surgical Procedure Criteria Explanted:Qty: 1 on 06/02/2023 by Uriel Mercedes MD at [facility] N/A: Spine Lumbar Procedures Procedure Name Priority Date/Time Associated Diagnosis Comments XR EOS TOTAL BODY Routine 12/05/2024 9:1 8 AM SKIAGRAPHER S/P spinal fusion Herniated lumbar intervertebral disc History of fusion of cervical spine Status post lumbar spinal fusion BASIC METABOLIC PANEL Routine 03/20/2024 11:08 AM CDT HEMOGLOBIN A1C Routine 04/11/2023 12:57 PM CDT Preop examination Flatback syndrome of lumbar region Flatback syndrome of lumbosacral region Lumbar pseudoarthrosis Spinal stenosis of lumbar region with neurogenic claudication Type 1 diabetes mellitus without complication (H) from Last 3 Months or Most Recently Relevant to Health Maintenance Results * XR EOS Total Body (12/05/2024 9:18 AM SKIAGRAPHER) Anatomical Region Laterality Modality Spine, Lower Extremity Computed Radiography Impressions 12/05/2024 1:22 PM SKIAGRAPHER Impression: 1. Stable ACDF and posterior fusion at C5-C7 and posterior T12 the pelvis instrument fusion without evidence of hardware complication. Slightly increased opposing endplate degenerative changes at T11-T12. 2. No global sagittal or coronal imbalance. 3. Weight bearing axis as detailed above. EBONY WRIGHT MD Narrative 12/05/2024 1:22 PM SKIAGRAPHER Exam: Full body radiographs using EOS History: [...] No substantial global coronal imbalance. Sagittal Vertical [place] (A vertical line drawn from the center [...] No substantial global coronal imbalance. Sagittal Vertical [place] (A vertical line drawn from the center [...] IMG DIAGNOSTIC IMAGIN G ORDERABLES Final Result * (ABNORMAL) Basic metabolic panel (03/20/2024 11:08 AM CDT) Sodium 142 135 - 145 mmol/L 03/20/2024 11:34 AM CDT [facility] Comment:Reference intervals for this test were updated on 06/27/2023 to more accurately reflect our healthy population. There may be differences in the flagging of prior results with similar values performed with this method. Interpretation of those prior results can be made in the context of the updated reference intervals. Potassium 4.1 3.4 - 5.3 mmol/L 03/20/2024 11:34 AM CDT [facility] Chloride 102 98 - 107 mmol/L 03/20/2024 11:34 AM CDT [facility] Carbon Dioxide (CO2) 28 22 - 29 mmol/L 03/20/2024 11:34 AM CDT [facility] Anion Gap 12 7 - 15 mmol/L 03/20/2024 11:34 AM CDT [facility] Urea Nitrogen 8.5 6.0 - 20.0 mg/dL 03/20/2024 11:34 AM CDT [facility] Creatinine 0.76 0.51 - 0.95 mg/dL 03/20/2024 11:34 AM CDT [facility] GFR Estimate >90 >60 mL/min/1. 73m2 03/20/2024 11:34 AM CDT [facility] Comment:eGFR calculated us2020 CKD-EPI equation. Calcium 10.1(H) 8.6 - 10.0 mg/dL 03/20/2024 11:34 AM CDT [facility] Glucose 86 70 - 99 mg/dL 03/20/2024 11:34 AM CDT [facility] Blood STRUCTURE OF LEFT HAND / Unknown Venipuncture / Unknown 03/20/2024 11:08 AM CDT 03/20/2024 11:11 AM CDT Billy Tyler MD LAB - BLOOD ORDERABLES Final Res ult [facility] Lab [address] [facility] [place] [address], [facility] * (ABNORMAL) Hemoglobin A1c (04/11/2023 12:57 PM CDT) Hemoglobin A1C 8.7(H) <5.7 % 04/11/2023 7:40 PM CDT [facility] Comment: Normal <5.7% Prediabetes 5.7-6.4% Diabetes 6.5% or higher Note: Adopted from ADA consensus guidelines. Blood STRUCTURE OF RIGHT UPPER LIMB / Unknown Venipuncture / Unknown 04/11/2023 12:57 PM CDT 04/11/2023 12:57 PM CDT us Michelle Shannon APRN, CNP LAB - BLOOD ORDERABLES Final Result [facility] [address] [place] [address], [facility] [phone] from Last 3 Months or Most Recently Relevant to Health [place] [id number] [place] Advance Directives For more information, please contact: [phone] * Full Code (Latest Code Status on File) Date Activated Date Inactivated Comments 03/23/2024 6:37 PM 03/23/2024 7:25 PM All basic an d advanced life-sustaining interventions are performed as appropriate Question Answer Comments Code status determined by: Unable to det ermine; FULL CODE until documents or legal decision maker available * Full Code Date Activated Date Inactivated Comments 03/20/2024 8:47 PM 03/23/2024 6:37 PM All basic an d advanced life-sustaining interventions are performed as appropriate Question Answer Comments Code status determined by: Unable to det ermine; FULL CODE until documents or legal decision maker available * Full Code Date Activated Date Inactivated Comments 06/02/2023 5:50 PM 06/08/2023 5:09 PM All basic and advanced life-sustaining interventions are performed as appropriate Question Answer Comments Code status determined by: Unable to dis cuss and no AD/POLST on file; continue PREVIOUSLY ORDERED code status Care Teams Corrosion Control Specialist Relationship Specialty Start Date End Date David Parisi MD [address] [place] [address] PCP - General 03/16/23 Uriel Mercedes MD [address] [place] [address] Assigned Musculoskeletal Provider 03/25/23
--- OUTSIDE RECORDS SUMMARY | 2024-12-19 08:26 | XMS_ITS | Encounter Summary ---
Author Organization [facility] Address [address] [place] [address] Care Team Providers Care Motorcycle Deliverer Name Role Phone David Pariis MD Primary Care Provider Uriel Mercedes MD Unavailable Brandon Parikh MD Unavailable Encounter Details Date Type Department Care Team (Late st Contact Info) Description 01/29/2024 Telephone [facility] [place] [address] [facility] [address] 4th [place] [address] Uriel Mercedes MD [address] [place] [address] Social History Tobacco Use Types Packs/Day Years Used Date Smoking Tobacco: Never Smokeless Tobacco: Never Alcohol Use Standard Drinks/Week Comments Not Currently 0 (1 standard drink = 0.6 oz pur e alcohol) PHQ-2 Answer Date Recorded PHQ-2 Score 2 05/04/2023 Adolescent Education Answer Date Record ed Getting School Help Needed Not on file 06/24 Comments No Sex and Gender Information Value Date Recorded Sex Assigned at Not on file Legal Sex Female 5:08 AM WELLNESS MANAGER Gender Identity Not on file Sexual Orientation Not on file documented as of this encounter Miscellaneous Notes * Telephone Encounter - Lidia Jimenez RN - 01/29/2024 11:05 AM CDT RN Called patient to discuss MRIs. Patient stating that this was an FYI for Johanna ORDAZ. Lidia Jimenez, RN * Telephone Encounter - Lucero Johnosn - 01/29/2024 10:45 AM CDT Other: Ja [place] is calling because she has her mri scheduled on 02/11/24 at [facility].She would like to talk to Johanna Could we send this information to you [facility] or would you prefer to receive a phone call?: Patient would prefer a phone call Okay to leave a detailed message?: Yes at Home number on file [phone] (home) documented in this encounter Plan of Treatment Upcoming Encounters Date Type Department Care Team (Late st Contact Info) Description 05/29/2025 9:40 AM CDT Ancillary Procedure [facility] Clinic [address] 1st [place] [phone] Uriel Mercedes MD [address] [place] [id number] 05/29/2025 10:40 AM CDT Office Visit [facility] [address] 4th [place] [phone] Uriel Mercedes MD [address] [place] [address] documented as of this encounter Visit Diagnoses Not on filedocumented in this encounter Care Teams Motorcycle Deliverer Relationship Specialty Start Date End Date David Parisi MD [address] [place] [address] PCP - General 03/16/23 Uriel Mercedes MD [address] [place] [address] Assigned Musculoskeletal Provider 03/25/23 Brandon Parikh MD [address] [place] [address] Assigned Neuroscience Provider 04/29/23 11/23/24 documented as of this encounter
--- OUTSIDE RECORDS SUMMARY | 2024-12-19 08:26 | XMS_ITS | Encounter Summary ---
Author Organization [facility] Address [address] [place] [address] Care Team Providers Care Patient Transition Specialist Name Role Phone None Reported, Pcp Primary Care Provider Unavail able Reason for Visit * Reason Comments Med Refill Encounter Details Date Type Department Care Team (Late st Contact Info) Description 11/02/2024 [facility]ill [facility] [place] [address] [place] [phone] Joann Gaffney, TYRESE, C.N.P. [address] [place] [address] Med Refill Social History Tobacco Use Types Packs/Day Years Used Date Smoking Tobacco: Never Smokeless Tobacco: Never Nutrition Answer Date Recorded Nutrition: EVOO Fat Source 13 04/28 Nutrition: Servings of Fruits/Vegetables per Day Not on file 04/28/2020 Dental Answer Date Recorded Dental: Regular Dentist Unknown 12/05/19 21 Comments No Sex and Gender Information Value Date Recorded Sex Assigned at Not on file Legal Sex Female 4:47 PM CIRCULAR DISTRIBUTOR Gender Identity Not on file Sexual Orientation Not on file documented as of this encounter Miscellaneous Notes * Telephone Encounter - Luisa Charles REmmanuelN. - 11/04/2024 7:46 AM CIRCULAR DISTRIBUTOR Pt not under Erica Gaffney's Care ULAR DISTRIBUTOR documented in this encounter Plan of Treatment Upcoming Encounters Date Type Department Care Team (Late st Contact Info) Description 02/19/2025 10:15 AM CDT Office Visit Department of Neurology in [place], [place] [address] [address] Casa Larose M.D. [address] [place] [address] documented as of this encounter Visit Diagnoses Not on filedocumented in this encounter Care Teams Patient Transition Specialist Relationship Specialty Start Date End Date None Reported, Pcp PCP - General Family Medicine 10/04/24 documented as of this encounter
--- OUTSIDE RECORDS SUMMARY | 2024-12-19 08:26 | XMS_ITS | Encounter Summary ---
Author Organization [place] Address [facility] [place] [address] Care Team Providers Care Infantry Senior Sergeant Name Role Phone David Parisi MD Primary Care Provider [phone] Uriel Mercedes MD Unavailable [phone] Brandon Parikh MD Unavailable Reason for Referral * Diagnostic Imaging XR (Routine) - Pending Review Specialty Diagnoses / Procedures Referred By Contac t Referred To Contact Radiology. Diagnoses S/P spinal fusion Herniated lumbar intervertebral disc History of fusion of cervical spine Status post lumbar spinal fusion Procedures XR EOS Total Body Uriel Mercedes MD [address] [place] [address] Phone: tel: fax: Referral ID Status Reason Start Date Expiration Date V isits Requested Visits Authorized [id number] Pending Review 11/13/2024 11/13/2025 [address] Encounter Details Date Type Department Care Team (Late st Contact Info) Description 11/13/2024 [facility] Only [facility] [place] [id number] [facility] 4th [place] [address] Uriel Mercedes MD [address] [place] [phone] S/P spinal fusion (Primary Dx); Herniated lumbar [...] on file Legal Sex Female 5:08 AM CHEESE COOK Gender Identity Not on file Sexual Orientation Not on file documented as of this encounter Plan of Treatment Upcoming Encounters Date Type Department Care Team (Late st Contact Info) Description 05/29/2025 9:40 AM CDT Ancillary Procedure [facility] Imaging Center CT Clinic [address] [place] [phone] Uriel Mercedes MD [address] [place] [address] 05/29/2025 10:40 AM CDT Office Visit [facility] [address] [place] [phone] Uriel Mercedes MD [address] [place] [address] documented as of this encounter Results * XR EOS Total Body (12/05/2024 9:18 AM CHEESE COOK) Anatomical Region Laterality Modality Spine, Lower Extremity Computed Radiography Impressions 12/05/2024 1:22 PM CHEESE COOK Impression: 1. Stable ACDF and posterior fusion at C5-C7 and posterior T12 the pelvis instrument fusion without evidence of hardware complication. Slightly increased opposing endplate degenerative changes at T11-T12. 2. No global sagittal or coronal imbalance. 3. Weight bearing axis as detailed above. EBONY WRIGHT MD Narrative 12/05/2024 1:22 PM CHEESE COOK Exam: Full body radiographs using EOS History: [...] No substantial global coronal imbalance. Sagittal Vertical [place] (A vertical line drawn from the center [...] No substantial global coronal imbalance. Sagittal Vertical [place] (A vertical line drawn from the center [...] this encounter Visit Diagnoses Diagnosis S/P spinal fusion- Primary Arthrodesis status Herniated lumbar intervertebral disc Displacement of lumbar intervertebral disc without myelopathy History of fusion of cervical spine Arthrodesis status Status post lumbar spinal fusion Arthrodesis status S/P spinal fusion Arthrodesis status Herniated lumbar intervertebral disc Displacement of lumbar intervertebral disc without myelopathy History of fusion of cervical spine Arthrodesis status Status post lumbar spinal fusion Arthrodesis status documented in this encounter Care Teams Infantry Senior Sergeant Relationship Specialty Start Date End Date David Parisi MD [address] [place] [address] PCP - General 03/16/23 Uriel Mercedes MD [address] [place] [address] Assigned Musculoskeletal Provider 03/25/23 Brandon Parikh MD [address] [place], [place] [id number] Assigned Neuroscience Provider 04/29/23 11/23/24 documented as of this encounter
--- OUTSIDE RECORDS SUMMARY | 2024-12-19 08:26 | XMS_ITS | Encounter Summary ---
Author Organization [place] Address [facility] [place] [address] Care Team Providers Care Sat Tutor Name Role Phone David Parisi MD Primary Care Provider [phone] Uriel Mercedes MD Unavailable Brandon Parikh MD Unavailable Reason for Visit * Reason Onset Date Comments Prior Auth - Medication 04/27/2023 LamoTRIg ine (LAMICTAL) 250 MG TB24 - APPROVAL Encounter Details Date Type Department Care Team (Late st Contact Info) Description 04/27/2023 Telephone [facility] Clinic [address] [address] [place] [address] [place] [address] Prior Auth - Medication (LamoTRIgine (LAMICTAL) 250 MG TB24 - APPROVAL) Social History Tobacco Use Types Packs/Day Years Used Date Smoking Tobacco: Never Smokeless Tobacco: Never Alcohol Use Standard Drinks/Week Comments Not Currently 0 (1 standard drink = 0.6 oz pur e alcohol) PHQ-2 Answer Date Recorded PHQ-2 Score 1 04/11/2023 Comments No Sex and Gender Information Value Date Recorded Sex Assigned at Not on file Legal Sex Female 5:08 AM POUND KEEPER Gender Identity Not on file Sexual Orientation Not on file COVID-19 Exposure Response Date Recorded In the last 10 days, have yo u been in contact with someone who was confirmed or suspected to have Coronavirus/COVID-19? No / Unsure 04/27/2023 10:44 AM CDT documented as of this encounter Miscellaneous Notes * Telephone Encounter - Chana Jeffers - 06/27/2023 4:38 PM CDT Images from the original note were not included. Prior Authorization Approval Medication: LAMOTRIGINE ER 250 MG PO TB24 Authorization Effective Date: 05/24/2023 Authorization Expiration Date: 06/24/2024 Approved Dose/Quantity: 30 FOR 30 DAYS Insurance Company: [employer] Part D - [facility] is filling the prescription: MARISA HARTMAN [address] Notified: YES Patient Notified: YES - ALREADY FILLED AND PICKED UP * Telephone Encounter - Ramón Vega - 06/24/2023 9:13 AM CDT Central Prior Authorization Team I accidentally doned the encounter and this was not completed when it was supposed to as PA expiredin May. * Telephone Encounter - Ramón Vega - 06/24/2023 9:13 AM CDT Images from the original note were not included. Central Prior Authorization Team PA Initiation Medication: LAMOTRIGINE ER 250 MG PO TB24 Insurance Company: [employer] Part D - Pharmacy Filling the Rx: MARISA HARTMAN - [address] [facility] Filling Pharmacy Fax: Start Date: 06/24/2023 * Telephone Encounter - Ramón Vega - 04/27/2023 12:23 PM CDT Images from the original note were not included. Central Prior Authorization Team documented in this encounter Plan of Treatment Upcoming Encounters Date Type Department Care Team (Late st Contact Info) Description 05/29/2025 9:40 AM CDT Ancillary Procedure [facility] Imaging Center CT Clinic [address] 1st [place] [phone] Uriel Mercedes MD [address] [place], [place] [phone] 05/29/2025 10:40 AM CDT Office Visit [facility] [address] 4th [place] [phone] Uriel Mercedes MD [address] [place] [address] documented as of this encounter Visit Diagnoses Not on filedocumented in this encounter Care Teams Sat Tutor Relationship Specialty Start Date End Date David Parisi MD [address] [place] [address] PCP - General 03/16/23 Uriel Mercedes MD [address] [place] [address] Assigned Musculoskeletal Provider 03/25/23 Brandon Parikh MD [address] [place] [address] Assigned Neuroscience Provider 04/29/23 11/23/24 documented as of this encounter
--- OUTSIDE RECORDS SUMMARY | 2024-12-19 08:26 | XMS_ITS | Encounter Summary ---
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 Gender Identity Not on file Sexual Orientation Not on file documented as of this encounter Plan of Treatment Upcoming Encounters Date Type Department Care Team (Late st Contact Info) Description 05/29/2025 9:40 AM CDT Ancillary Procedure [facility] Imaging Center CT Clinic [address] 1st [place] [address] Uriel Mercedes MD [address] [facility] [address] [place], [place] [address] 05/29/2025 10:40 AM CDT Office Visit [facility] [address] 4th [place] [address] Uriel Mercedes MD [address] [facility] [address] [place] [address] documented as of this encounter Visit Diagnoses Not on filedocumented in this encounter Care Teams Wood Caulker Relationship Specialty Start Date End Date David Parisi MD [address] [place] [address] PCP - General 03/16/23 Uriel Mercedes MD [address] [facility] [place] [address] Assigned Musculoskeletal Provider 03/25/23 documented as of this encounter
--- OUTSIDE RECORDS SUMMARY | 2024-12-19 08:27 | XMS_ITS | Encounter Summary ---
Author Organization [facility] Address [address] [place] [address]. [place] [address] Care Team Providers Care Womens Health Nurse Practitioner Name Role Phone David Parisi MD Primary Care Provider [phone] Uriel Mercedes MD Unavailable Brandon Parikh MD Unavailable Reason for Visit * Reason Onset Date Comments Call Back 04/21/2023 Upcoming Surgery Conversation She want to have with Doctor. Misunderstanding from Yesterday Conversation. Please call Encounter Details Date Type Department Care Team (Late st Contact Info) Description 04/21/2023 Telephone [facility] [place] [address] [facility] [address] 4th [place] [address] Uriel Mercedes MD [address] [place] [address] Call Back (Upcoming Surgery Conversation She want to have with Doctor. Misunderstanding from Yesterday Conversation. Please call ) Social History Tobacco Use Types Packs/Day Years Used Date Smoking Tobacco: Never Smokeless Tobacco: Never Alcohol Use Standard Drinks/Week Comments Not Currently 0 (1 standard drink = 0.6 oz pur e alcohol) PHQ-2 Answer Date Recorded PHQ-2 Score 1 04/11/2023 Comments No Sex and Gender Information Value Date Recorded Sex Assigned at Not on file Legal Sex Female 5:08 AM HAND PASTER Gender Identity Not on file Sexual Orientation Not on file COVID-19 Exposure Response Date Recorded In the last 10 days, have yo u been in contact with someone who was confirmed or suspected to have Coronavirus/COVID-19? No / Unsure 04/11/2023 11:29 AM CDT documented as of this encounter Miscellaneous Notes * Telephone Encounter - Lidia Jimenez RN - 04/25/2023 10:03 AM CDT RN scheduled patient for PAC appointment on 05/04, she sees neurology 04/27/2023. Lidia Jimenez RN * Telephone Encounter - Lidia Jimenez RN - 04/21/2023 3:15 PM CDT RN called patient who was very apologetic about her actions yesterday, then directed me to call hersister to explain more. RN then called sister back after mistakenly calling the patient to discuss the telephone call yesterday. Patient's sister stating that Jennifer is very sorry for her actions toward Dr. Mercedes and would still like to proceed with surgery whenever she is cleared. Karoline stating that her sister suffers from a lot of mental and emotional health and isn't the best communicator. RN again reiterated the plan of care for patient to see neurology and be cleared with an elevated A1C. Ultimately it is up to Dr. Mercedes to state whether or not he will operate on the patient. I will route message to Dr. Mercedes. Karoline would like a call to discuss. Lidia Jimenez RN * Telephone Encounter - Lidia Jimenez RN - 04/21/2023 10:28 AM CDT RN attempted to reach out to patient to discuss additional questions from yesterday's visit. Will attempt to reach out later today. Lidia Jimenez RN * Telephone Encounter - Alexia Sloan - 04/21/2023 8:33 AM CDT [facility] Phone Message May a detailed message be left on voicemail: yes Reason for Call Upcoming Surgery Conversation She want to have with Doctor. Misunderstanding from Yesterday Conversation. Please call Action Taken: Message routed to: [facility] Travel Screening: Not Applicable documented in this encounter Plan of Treatment Upcoming Encounters Date Type Department Care Team (Late st Contact Info) Description 05/29/2025 9:40 AM CDT Ancillary Procedure [facility] Imaging Center CT Clinic [address] 1st [place] [phone] Uriel Mercedes MD [address] [place] [phone] 05/29/2025 10:40 AM CDT Office Visit [facility] [address] 4th [place] [phone] Uriel Mercedes MD [address] [place] [phone] documented as of this encounter Visit Diagnoses Not on filedocumented in this encounter Care Teams Womens Health Nurse Practitioner Relationship Specialty Start Date End Date David Parisi MD [address] [place] [address] PCP - General 03/16/23 Uriel Mercedes MD [address] [place] [address] Assigned Musculoskeletal Provider 03/25/23 Brandon Parikh MD [address] [place] [address] Assigned Neuroscience Provider 04/29/23 11/23/24 documented as of this encounter
--- OUTSIDE RECORDS SUMMARY | 2024-12-19 08:27 | XMS_ITS | Encounter Summary ---
Author Organization [facility] Address [address] [place] [address] Care Team Providers Care Five Piece Expansion Maker Hand Name Role Phone David Parisi MD Primary Care Provider [phone] Uriel Mercedes MD Unavailable [phone] Reason for Referral * Diagnostic Imaging CT Scan (Routine) - Authorized Specialty Diagnoses / Procedures Referred By Contac t Referred To Contact Radiology. Diagnoses S/P lumbar spinal fusion Herniated lumbar intervertebral disc Status post lumbar spinal fusion Procedures CT Lumbar Spine w/o Contrast Uriel Mercedes MD [address] [place] [address] Phone: tel: fax: Referral ID Status Reason Start Date Expiration Date V isits Requested Visits Authorized [id number] Authorized 12/05/2024 12/05/2025 1 1 ETING ENGINEER Encounter Details Date Type Department Care Team (Late st Contact Info) Description 12/05/2024 Orders Only [facility] [place] [id number] [facility] [address] 4th [place] [address] Uriel Mercedes MD [address] [place], [place] [id number] [place], [place] [address] S/P lumbar spinal fusion (Primary Dx); Herniated lumbar intervertebral disc; Status post lumbar spinal fusion Social History [...] on file Legal Sex Female 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 Gender Identity Not on file Sexual Orientation Not on file documented as of this encounter Plan of Treatment Upcoming Encounters Date Type Department Care Team (Late st Contact Info) Description 05/29/2025 9:40 AM CDT Ancillary Procedure [facility] Imaging Center CT Clinic [address] 1st [place] [phone] Uriel Mercedes MD [address] [place] [address] 05/29/2025 10:40 AM CDT Office Visit [facility] [address] 4th [place] [phone] Uriel Mercedes MD [address] [place] [address] Scheduled Orders Name Type Priority Associated Diagnoses Orde r Schedule CT Lumbar Spine w/o Contrast Imaging Routine S/P lumbar spinal fusion Herniated lumbar intervertebral disc Status post lumbar spinal fusion 1 Occurrences starting 12/05/2024 until 12/05/2025 documented as of this encounter Visit Diagnoses Diagnosis S/P lumbar spinal fusion- Primary Arthrodesis status Herniated lumbar intervertebral disc Displacement of lumbar intervertebral disc without myelopathy Status post lumbar spinal fusion Arthrodesis status documented in this encounter Care Teams Five Piece Expansion Maker Hand Relationship Specialty Start Date End Date David Parisi MD [address] [place] [address] PCP - General 03/16/23 Uriel Mercedes MD [address] [facility] [address] [place] [address] Assigned Musculoskeletal Provider 03/25/23 documented as of this encounter
--- OUTSIDE RECORDS SUMMARY | 2024-12-19 08:27 | XMS_ITS | Encounter Summary ---
Author Organization [facility] Address [address] [place] [id number] Care Team Providers Care Mining Technician Name Role Phone David Parisi MD Primary Care Provider Uriel Mercedes MD Unavailable Brandon Parikh MD Unavailable Reason for Visit * Reason Onset Date Comments Results 04/24/2023 Lab results of lab draw Encounter Details Date Type Department Care Team (Late st Contact Info) Description 04/24/2023 Telephone [facility] Preoperative Assessment Center [address] [place] [address] Michelle Shannon APRN [address] [address] Results (Lab results of 04/19/23 lab draw) Social History Tobacco Use Types Packs/Day Years Used Date Smoking Tobacco: Never Smokeless Tobacco: Never Alcohol Use Standard Drinks/Week Comments Not Currently 0 (1 standard drink = 0.6 oz pur e alcohol) PHQ-2 Answer Date Recorded PHQ-2 Score 1 04/11/2023 Comments No Sex and Gender Information Value Date Recorded Sex Assigned at Not on file Legal Sex Female 5:08 AM ASSISTANT 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 No / Unsure 04/27/2023 10:44 AM CDT documented as of this encounter Miscellaneous Notes * Telephone Encounter - ShaliniNarcisa jacobsenine - 04/24/2023 1:27 PM CDT [facility] Call [facility] Phone Message May a detailed message be left on voicemail: yes Reason for Call: Requesting Results Name/type of test: Labs Date of test: 04/19/23 Was test done at a location other than [facility] (Please fill in the location if not [facility])?: Yes: [facility] (in care Everywhere) Action Taken: Message routed to: [facility] Travel Screening: Not Applicable documented in this encounter Plan of Treatment Upcoming Encounters Date Type Department Care Team (Late st Contact Info) Description 05/29/2025 9:40 AM CDT Ancillary Procedure [facility] [address] 1[address] [place] [phone] Uriel Mercedes MD [address] [place] [id number] 05/29/2025 10:40 AM CDT Office Visit [facility] [address] [place] [phone] Uriel Mercedes MD [address] [place] [id number] documented as of this encounter Visit Diagnoses Not on filedocumented in this encounter Care Teams Mining Technician Relationship Specialty Start Date End Date David Parisi MD [address] [place] [address] PCP - General 03/16/23 Uriel Mercedes MD [address] [facility] [address] [address] Assigned Musculoskeletal Provider 03/25/23 Brandon Parikh MD [address] [place] [address] Assigned Neuroscience Provider 04/29/23 11/23/24 documented as of this encounter
--- OUTSIDE RECORDS SUMMARY | 2024-12-19 08:27 | XMS_ITS | Clinical Summary ---
Author Organization [facility] Address [address] [place] [address] Care Team Providers Care Cashier Assistant Name Role Phone None Reported, Pcp Primary Care Provider Unavail able Source Comments Patient records contain information from all sites at [facility]. For routine questions regarding patient records, call [phone] during business hours, M-F 8:00 AM - 5:00 PM Central Time. Record requests for emergency care only can be directed to [phone] at any time.[facility] Allergies Active Allergy Reactions Criticality Noted Date Comments Ibuprofen Other (see comments) 10/10/2014 Retinal hemorrhage Penicillins Rash Medium 02/07/2010 Med hx shows prescriptions for Ceftin #20 05/2013 & Keflex #21 10/2016 Wheat Flour Other (see comments),Nausea Only 10/10/2014 Includes oats, wheat, barley, rye and malt. Medications acetaminophen (TYLENOL) 500 mg tablet Take 1,000 mg by mouth every 6 (six) hours as needed for pain. 9 Active ascorbic acid, vitamin C, (VITAMIN C) 500 mg tablet Take 500 mg by mouth daily. [address] tablet Take 81 mg by mouth 2 (two) times a day. Active atorvastatin (LIPITOR) 10 mg tablet Take 10 mg by mouth at bedtime. 0 Active cholecalciferol, vitamin D3, 1,000 Unit tablet Take 2,000 Units by mouth daily. 4 Active zolpidem (AMBIEN) 5 mg tablet Take 5 mg by mouth at bedtime as needed for sleep. For 30 days 4 Active insulin aspart U-100 (NovoLOG) 100 unit/mL injection USE 40 TO 50 UNITS DAILY NEEDED IN THE INFUSION PUMP FOR DIABETES CONTROL. 0 Active insulin pump cartridge cartridge Inject under the skin. Active betamethasone dipropionate 0.05 % cream 1 Application every 12 (twelve) hours as needed. For red rashy areas 1 Active blood-glucose sensor (Dexcom G6 Sensor) device See Admin Instructions. 1 Active lamoTRIgine ER (LaMICtal XR) 250 mg tablet extended release 24hr 24 hr tablet Take 1 tablet (250 mg total) by mouth at bedtime. 90 tablet 3 4 Active Additional Information Patient taking differently: 50 mgoral Daily at bedtime,Startin09/12/2024, Reported on 10/01/2024 lamoTRIgine ER (LaMICtaL XR) 200 mg 24 hr tablet Take 1 tablet (200 mg total) by mouth at bedtime. Take with 250mg tablet for total of 450mg at night 90 tablet 3 4 Active Additional Information Patient taking differently: 400 mgoral Daily at bedtime,Startin09/12/2024, Reported on 10/01/2024 Admelog U-100 Insulin lispro 100 unit/mL vial Inject under the skin. USE 50 TO 60 UNITS DAILY NEEDED IN THE INFUSION PUMP FOR DIABETES CONTROL 4 Active DULoxetine (Drizalma Sprinkle) 20 mg capsule, delayed rel sprinkle DR sprinkle capsule Take 40 mg by mouth daily. 4 Active rOPINIRole (Requip) 1 mg tablet Take 1 mg by mouth at bedtime. Active iron,carbonyl-vi tamin C (Vitron-C) 65 mg iron- [address] tablet Take 65 mg of iron by mouth daily. Do not crush or chew. Active cefazolin sodium in 0.9 % NaCl (CEFAZOLIN IN 0.9% SOD CHLORIDE IV) Infuse 2 g into a venous catheter every 8 (eight) hours. Active ALBUTEROL SULFATE INHL Inhale 1 Application by nebulization every 4 (four) hours as needed for wheezing. Albuterol Sulfate Inhalation Nebulization Solution (2.5 MG/3ML) 0.083% (Albuterol Sulfate) 1 application inhale orally via nebulizer every 4 hours as needed for SOB WHEEZING Active sennosides (Senokot) 8.6 mg tablet Take 17.2 mg by mouth every 12 (twelve) hours as needed for constipation. Active benzonatate (Tessalon) 200 mg capsule Take 1 capsule (200 mg total) by mouth 3 (three) times a day as needed for cough. 30 capsule 4 Active lacosamide (Vimpat) 100 mg tablet Take 1 tablet (100 mg total) by mouth 2 (two) times a day. 60 tablet 1 4 Active pregabalin (Lyrica) 150 mg capsule Take 1 capsule (150 mg total) by mouth 2 (two) times a day. 30 capsule 1 4 Active oxyCODONE (Roxicodone) 5 mg immediate release tabletIndication s:Chronic Pain/Nonacute Pain Indication: Chronic Pain/Nonacute Pain. 2.5 mg for pain 4-6/10 or 5mg for pain 7/10/10 every 4 hours PRN 30 tablet 4 Active insulin pump cart,auto,BT,G6/ L (Omnipod 5, G6/Martin 2 Plus,) cartridge Inject under the skin. For Insulin Pump: Change every three days 4 Active furosemide (Lasix) 20 mg tablet Take 20 mg by mouth 2 (two) times a day. 4 Active hydrOXYzine (Atarax) 25 mg tablet Take 1 tablet (25 mg total) by mouth every 6 (six) hours as needed for anxiety. 30 tablet 5 Active amLODIPine (Norvasc) 5 mg tablet Take 1 tablet (5 mg total) by mouth daily. 30 tablet 5 Active meclizine (Antivert) 12.5 mg tablet Take 1 tablet (12.5 mg total) by mouth every 8 (eight) hours as needed for nausea. 30 tablet 5 Active lisinopriL 20 mg tablet Take 1 tablet (20 mg total) by mouth daily. 30 tablet 5 Active Active Problems Problem Noted Date Diagnosed Date Edema 10/03/2024 Assessment & Plan (10/03/2024 2:13 PM EPIC SPECIALIST): Component Ref Range & Units 3 d ago NT-Pro BNP <=141 pg/mL 225 High Comment: NT-proBNP values less than 300 pg/mL have a 99% negative predictive value for excluding acute congestive heart failure. A cutoff of 1200 pg/mL for patients with an eGFR<60 yields a diagnostic sensitivity and specificity of 89% and 72% for acute congestive heart failure. A diagnostic NT-proBNP cutoff of 900 pg/mL has been suggested in adults 50-75 years of age in the absence of renal failure. Increase Lasix to 40 mg in the morning and keep 20 mg in the afternoon Decrease amlodipine to 5 mg daily Elevate legs Compression socks Low sodium diet Follow up with PCP, has appointment scheduled 10/07/24 Anxiety 09/23/2024 Assessment & Plan (10/03/2024 2:11 PM EPIC SPECIALIST): Continue p.r.n. hydroxyzine- script sent Assessment & Plan (09/23/2024 1:43 PM EPIC SPECIALIST): Continue p.r.n. hydroxyzine for 30 days for anxiety Anemia 09/23/2024 Assessment & Plan (10/03/2024 2:10 PM EPIC SPECIALIST): Lab Results Component Value Date HGB 8.8 (L) 10/01/2024 Hemoglobin has improved from 7.8 to 8.8 Positive hemoccult Weekly hemoglobins Monitor for signs of active bleeding Upper endoscopy/colonoscopy recommended in future- she will discuss with PCP Celebrex was stopped Assessment & Plan (09/23/2024 1:53 PM EPIC SPECIALIST): Lab Results Component Value Date HGB 8.2 (L) 09/19/2024 Positive hemoccult Weekly hemoglobins Monitor for signs of active bleeding Upper endoscopy/colonoscopy recommended in future Discontinue Celebrex Infection Total Knee Arthroplasty Subsequent Lef t 09/16/2024 Assessment & Plan (10/03/2024 2:09 PM EPIC SPECIALIST): Continue with IV cefazolin via PICC line 2 g every 8 hours until 10/17/23- she will need follow up with infectious disease prior to stopping antibiotics Labs per Infectious Disease As needed acetaminophen As needed oxycodone for pain control- she has supply at home Assessment & Plan (09/23/2024 1:53 PM EPIC SPECIALIST): Continue with IV cefazolin via PICC line 2 g every 8 hours until 10/17/23- she will need follow up with infectious disease prior to stopping antibiotics Labs per Infectious Disease As needed acetaminophen As needed oxycodone for pain control Celecoxib 100 mg twice a day-discontinue due to positive hemoccult Has immobilizer in place for 1 week Continue physical therapy and occupational therapy currently assist of 1 with pivot transfer Assessment & Plan (09/16/2024 1:04 PM EPIC SPECIALIST): Continue with IV cefazolin via PICC line 2 g every 8 hours until 10/17/23- she will need follow up with infectious disease prior to stopping antibiotics Labs per Infectious Disease As needed acetaminophen As needed oxycodone for pain control Celecoxib 100 mg twice a day Currently has wound VAC in place Has immobilizer in place Continue physical therapy and occupational therapy currently assist of 1 with pivot transfer Restless Leg Syndrome 09/16/2024 Assessment & Plan (10/03/2024 2:09 PM EPIC SPECIALIST): Continue ropinirole Assessment & Plan (09/23/2024 1:42 PM EPIC SPECIALIST): Continue ropinirole Assessment & Plan (09/16/2024 1:16 PM EPIC SPECIALIST): Continue ropinirole- requesting this between 7:30 and 8 p.m. 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 02/07/2024 Lumbago With Sciatica Right Side 02/20/2022 Seizure 04/21/2021 Assessment & Plan (10/03/2024 2:08 PM EPIC SPECIALIST): Continue lacosamide and lamotrigine Assessment & Plan (09/23/2024 1:25 PM EPIC SPECIALIST): Continue lacosamide and lamotrigine Assessment & Plan (09/16/2024 12:58 PM EPIC SPECIALIST): Continue lacosamide and lamotrigine Spinal Stenosis Lumbar Regio n Without Neurogenic Claudication 04/29/2016 Other Intervertebral Disc Displacement Lumbar Re gion 10/23/2015 Assessment & Plan (09/16/2024 1:19 PM EPIC SPECIALIST): Patient states she has had multiple spine surgeries in the past Continue Lyrica Celiac Disease 08/06/2014 Overview (09/16/2024): EGD 08/2014 celiac disease Insulin Pump Status 04/01/2014 Unsteadiness Gait Disorder Non Orthopedic 2012 Assessment & Plan (10/03/2024 2:12 PM EPIC SPECIALIST): Uses walker Assessment & Plan (09/23/2024 1:43 PM EPIC SPECIALIST): Continue with PT and OT Assessment & Plan (09/16/2024 1:02 PM EPIC SPECIALIST): Continue with PT and OT Diabetes Mellitus Type 1 Wit h Diabetic Chronic Kidney Disease 11/16/2012 Overview (09/16/2024): Diagnosed at age 1 On insulin pump since 2007. Good control. Proliferative retinopathy with laser photocoagulation 1990 Cataract surgery, legally blind both eyes. No neuropathy. ++hypoglycemia unawareness, microalbuminuria. Assessment & Plan (10/03/2024 2:10 PM EPIC SPECIALIST): She is managing her own insulin via pump Assessment & Plan (09/23/2024 1:43 PM EPIC SPECIALIST): She is managing her own insulin via pump Assessment & Plan (09/16/2024 12:59 PM EPIC SPECIALIST): She is managing her own insulin via pump Insomnia 09/04/2012 Overview (09/16/2024): She takes occasional ambien. Generally gets about 30 pills and lasts her 6 months. Assessment & Plan (10/03/2024 2:11 PM EPIC SPECIALIST): PRN zolpidem, she has supply at home Assessment & Plan (09/23/2024 1:44 PM EPIC SPECIALIST): PRN zolpidem, x30 days follow up in 2 weeks Assessment & Plan (09/16/2024 1:01 PM EPIC SPECIALIST): PRN zolpidem, x14 days follow up in 2 weeks Depression Major Recurrent Partial Remission 01/2012 Assessment & Plan (10/03/2024 2:11 PM EPIC SPECIALIST): Continue duloxetine Assessment & Plan (09/16/2024 1:01 PM EPIC SPECIALIST): Not currently on medications Dyslipidemia 02/05/2010 Assessment & Plan (10/03/2024 2:10 PM EPIC SPECIALIST): Continue atorvastatin Assessment & Plan (09/16/2024 1:00 PM EPIC SPECIALIST): Continue atorvastatin Encounters Date Type Department Care Team Description 11/02/2024 Refill [facility] in [place] [address] [place] [address] Joann Gaffney APRN, C.N.P. Med Refill 10/03/2024 10:30 AM EPIC SPECIALIST External Outreach [facility] in [place] [address] [place] [place] [address] Joann Gaffney APRN, C.N.P. 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 Anemia Discharge Disposition: Home or Self Care 09/30/2024 11:20 AM EPIC SPECIALIST - 09/30/2024 11:59 PM EPIC SPECIALIST Hospital Encounter Department of Laboratory Medicine in [place] [address] [place] [phone] Joann Gaffney APRN, C.N.P. Failure Heart Low Output Syndrome (HCC) Discharge Disposition: Home or Self Care 09/28/2024 ED Telemedicine [facility] Emergency Department [address] [place] [address] Arnulfo Botello M.D. Edema Extremity (Primary Dx); Elevated Blood Pressure Discharge Disposition: Home or Self Care 09/28/2024 Clinical Communication [facility] in [place] [address] [place] [phone] Emilia Li APRN, C.N.P. 09/24/2024 2:50 PM EPIC SPECIALIST - 09/24/2024 11:59 PM EPIC SPECIALIST Hospital Encounter Department of Laboratory Medicine in [place] [address] [place] [phone] Cleo Campos D.O. Infection And Inflammatory Reaction Due To Internal Left Knee Prosthesis Initial (HCC) Discharge Disposition: Home or Self Care 09/23/2024 3:00 PM EPIC SPECIALIST External Outreach [facility] in [place] [address] [place] [phone] Joann Gaffney APRN, C.N.P. Seizure (HCC) (Primary Dx); Infection Total Knee Arthroplasty Subsequent Left; Restless Leg Syndrome; Diabetes Mellitus Type 1 With Diabetic Chronic Kidney Disease (HCC); Insomnia; Unsteadiness Gait Disorder Non Orthopedic; Anxiety; Anemia from Last 3 Months Immunizations Immunization Administration Dates Next Due H1N1 All Forms 09/14/2009 HepB Adult 02/02/2015,09/04/2014,06/12/2014 Influenza Split 06/02/2014 Influenza, Injectable, Quadrivalent 06/23/2017 Influenza, Seasonal, Injectable 10/14/2013,07/28,07/26/2006 Influenza, Unspecified 06/28/2019,2017,06/11/2012,2010,07/25/2007 PCV20 04/19/2022 PPSV23 04/12/2019,03/02/2007,10/09/2006 RZV (SHINGRIX) 09/15/2020,06/13/2020 Tdap 06/13/2020,01/25/2010,01/28/2008 influenza trivalent high dos e (HD)(PF) 06/02/2014 influenza trivalent vaccine (6 months and older)(PF) 06/17/2024,06/11/2012,07/04/2011,2009,06/19/2009 influenza vaccine (FLUBLOK) (18 years or older) (PF) 07/04/2016 influenza vaccine quad (FLUZONE/FLUARIX) (6 months and older)(PF) 06/20/2023,07/25/2022,06/21/2021,2019,06/28/2019,06/22/2018,08/06/2015,0 06/12/2014 Social History Tobacco Use Types Packs/Day Years Used Date Smoking Tobacco: Never Smokeless Tobacco: Never Tobacco Cessation:Counseling Given: Not Answered Nutrition Answer Date Recorded Nutrition: EVOO Fat Source 13 04/28 Nutrition: Servings of Fruits/Vegetables per Day Not on file 04/28/2020 Dental Answer Date Recorded Dental: Regular Dentist Unknown 12/05/19 21 Comments No Sex and Gender Information Value Date Recorded Sex Assigned at Not on file Legal Sex Female 4:47 PM EPIC SPECIALIST Gender Identity Not on file Sexual Orientation Not on file Last Filed Vital Signs Vital Sign Reading Time Taken Comments Blood Pressure 167/56 10/03/2024 7:42 AM EPIC SPECIALIST Pulse 90 10/03/2024 7:42 AM EPIC SPECIALIST Temperature 36.6 C (97.8 F) 10/03/2024 7:42 AM EPIC SPECIALIST Respiratory Rate 18 10/03/2024 7:42 AM EPIC SPECIALIST Oxygen Saturation 91% 10/03/2024 7:42 AM EPIC SPECIALIST Inhaled Oxygen Concentration - - Weight 91.8 kg (202 lb 6.4 oz) 10/03/2024 7:42 A M EPIC SPECIALIST Height 152.4 cm (5') 09/13/2024 9:42 AM EPIC SPECIALIST Body Mass Index 39.53 09/13/2024 9:42 AM EPIC SPECIALIST Plan of Treatment Upcoming Encounters Date Type Department Care Team (Late st Contact Info) Description 02/19/2025 10:15 AM CDT Office Visit Department of Neurology in [place], [place] [address] [phone] Casa Larose M.D. [address] [phone] Health Maintenance Due Date Last Done Comments CT Colonography 1969 Colonoscopy 1969 Depression Monitoring (PHQ-9) 1969 Diabetic Office Visit with Foot Exam 1969 Dilated Eye Exam 1969 FIT 1969 HIV Screening 1969 Hepatitis C Screening 1969 Urine Albumin 1969 Cervical/Vaginal Cancer Screening 06/09/2023 06/09/2020 Depression Monitoring (PHQ-9 for quality tracking) 10/02/2024 Hemoglobin A1C 11/27/2024 05/27/2024, 01/31, 11/21/2023, Additional history exists Office Visit for Blood Pressure Check / Re-check 01/01/2025 10/03/2024 Mammogram 02/26/2025 02/27/2024, 01/31, 11/08/2022, Additional history exists Potassium Level 09/30/2025 09/30/2024, 09/01, 05/27/2024, Additional history exists Sodium Level 09/30/2025 09/30/2024, 09/01, 05/27/2024, Additional history exists Creatinine Level (Kidney Function Test) 10/01/2025 10/01/2024, 09/30/2024, 09/24/2024, Additional history exists Cologuard 08/21/2026 08/21/2023 Colorectal Cancer Screening 08/21/2026 Lipid (Cholesterol) Screening 08/15/2028 08/15/2023, 10/31/2022, 01/10/2022, Additional history exists DTaP,Tdap,and Td Vaccines (4 - Td or Tdap) 06/13/2030 06/13/2020, 01/25/2010, 01/28/2008 Hepatitis B Vaccines Completed 02/02/2015, 09/04/2014, 06/12/2014 Zoster Vaccines Completed 09/15/2020, 06/13/2020 Pneumococcal vaccine (50+ years) Completed 04/19/2022, 04/12/2019, 03/02/2007, Additional history exists COVID-19 Vaccine Completed 06/17/2024, , 07/25/2022, Additional history exists Influenza Vaccine Completed 06/17/2024, , 07/25/2022, Additional history exists IPV Vaccines Aged Out No longer eligi ble based on patient's age to complete this topic Procedures Procedure Name Priority Date/Time Associated Diagnosis Comments CBC WITHOUT DIFFERENTIAL, B Routine 10/01/2024 2:55 PM EPIC SPECIALIST Anemia CREATININE WITH EGFR, S/P Routine 10/01/2024 2:55 PM EPIC SPECIALIST Anemia C-REACTIVE PROTEIN (CRP), S/P Routine 10/01/2024 2:55 PM EPIC SPECIALIST Anemia ALANINE AMINOTRANSFERASE (ALT), S/P Routine 10/01/2024 2:55 PM EPIC SPECIALIST Anemia BASIC METABOLIC PANEL, S/P Routine 09/30/2024 1:00 PM EPIC SPECIALIST Failure Heart Low Output Syndrome (HCC) NT-PRO B-TYPE NATRIURETIC PEPTIDE (BNP), S Routine 09/30/2024 1:00 PM EPIC SPECIALIST Failure Heart Low Output Syndrome (HCC) CBC WITH DIFFERENTIAL, B Routine 024 1:15 PM EPIC SPECIALIST Infection And Inflammatory Reaction Due To Internal Left Knee Prosthesis Initial (HCC) CREATININE WITH EGFR, S/P Routine 09/24/2024 1:15 PM EPIC SPECIALIST Infection And Inflammatory Reaction Due To Internal Left Knee Prosthesis Initial (HCC) C-REACTIVE PROTEIN (CRP), S/P Routine 09/24/2024 1:15 PM EPIC SPECIALIST Infection And Inflammatory Reaction Due To Internal Left Knee Prosthesis Initial (HCC) ALANINE AMINOTRANSFERASE (ALT), S/P Routine 09/24/2024 1:15 PM EPIC SPECIALIST Infection And Inflammatory Reaction Due To Internal Left Knee Prosthesis Initial (HCC) HEMOGLOBIN A1C, B Routine 10/25/2019 LIPID PANEL, S Routine 07/19/2019 from Last 3 Months or Most Recently Relevant to Health Maintenance Results * (ABNORMAL) CBC without Differential (10/01/2024 2:55 PM EPIC SPECIALIST) Hemoglobin 8.8(L) 11.6 - 15.0 g/dL 10/01/2024 3:29 PM EPIC SPECIALIST NPRG Hematocrit 28.2(L) 35.5 - 44.9 % 10/01/2024 3:29 PM EPIC SPECIALIST NPRG Erythrocytes 2.98(L) 3.92 - 5.13 x10(12)/L 10/01/2024 3:29 PM EPIC SPECIALIST NPRG MCV 94.6 78.2 - 97.9 fL 10/01/2024 3:29 PM EPIC SPECIALIST NPRG RBC Distrib Width 15.8 12.2 - 16.1 % 10/01/2024 3:29 PM EPIC SPECIALIST NPRG Platelet Count 287 157 - 371 x10(9)/L 10/01/2024 3:29 PM EPIC SPECIALIST NPRG Leukocytes 7.7 3.4 - 9.6 x10(9)/L 10/01/2024 3:29 PM EPIC SPECIALIST NPRG Blood (Blood, Venous) 10/01/2024 2:55 PM EPIC SPECIALIST 10/01/2024 3:19 PM EPIC SPECIALIST Joann Gaffney APRN, C.N.P. LAB BLOOD ADD-ON Fi nal Result Performing Organization Address City/[facility] Co de Phone Number [facility] [address] [place] [phone], [facility] NPRG [address] [address] * (ABNORMAL) CRP (C-Reactive Protein) (10/01/2024 2:55 PM EPIC SPECIALIST) Only the most recent of2 resultswithin the time period is included. C-Reactive Protein (CRP), P 53.4(H) <5.0 mg/L 10/01/2024 3:33 PM EPIC SPECIALIST NPRG Blood (Blood, Venous) 10/01/2024 2:55 PM EPIC SPECIALIST 10/01/2024 3:19 PM EPIC SPECIALIST Joann Gaffney APRN, C.N.P. LAB BLOOD ADD-ON Fi nal Result Performing Organization Address [facility] Co de Phone Number [facility] [address] [place] [address], [facility] [address] [address] * (ABNORMAL) ALT (Alanine Aminotransferase) (10/01/2024 2:55 PM EPIC SPECIALIST) Only the most recent of2 resultswithin the time period is included. Alanine Aminotransferase (ALT), P <5(L) 7 - 45 U/L 10/01/2024 4:28 PM EPIC SPECIALIST NPRG Blood (Blood, Venous) 10/01/2024 2:55 PM EPIC SPECIALIST 10/01/2024 3:19 PM EPIC SPECIALIST Joann Gaffney APRN, C.N.P. LAB BLOOD ADD-ON Fi nal Result Performing Organization Address City/[facility] Co de Phone Number [facility] [address] [place] [address], [place] NPRG [place] [address] [place] [address] * Creatinine with Estimated GFR (10/01/2024 2:55 PM EPIC SPECIALIST) Only the most recent of2 resultswithin the time period is included. Creatinine 0.69 0.59 - 1.04 mg/dL 10/01/2024 3:33 PM EPIC SPECIALIST NPRG Estimated GFR (eGFR) >90 >=60 mL/min/BSA 10/01/2024 3:33 PM EPIC SPECIALIST NPRG Comment: Estimated GFR calculated using the 2020 CKD_EPI creatinine equation. Blood (Blood, Venous) 10/01/2024 2:55 PM EPIC SPECIALIST 10/01/2024 3:19 PM EPIC SPECIALIST Joann Gaffney APRN, C.N.P. LAB BLOOD ADD-ON Fi nal Result Performing Organization Address City/[facility] Co de Phone Number [facility] [address] [place] [address], [place] NPR[place] [address] [place] [address] * (ABNORMAL) NT-Pro B-Type Natriuretic Peptide (BNP) (09/30/2024 1:00 PM EPIC SPECIALIST) NT-Pro BNP 225(H) <=141 pg/mL 09/30/2024 3:18 PM EPIC SPECIALIST NPRG Comment: NT-proBNP values less than 300 pg/mL have a 99% negative predictive value for excluding acute congestive heart failure. A cutoff of 1200 pg/mL for patients with an eGFR<60 yields a diagnostic sensitivity and specificity of 89% and 72% for acute congestive heart failure. A diagnostic NT-proBNP cutoff of 900 pg/mL has been suggested in adults 50-75 years of age in the absence of renal failure. Blood (Blood, Venous) 09/30/2024 1:00 PM EPIC SPECIALIST 09/30/2024 2:19 PM EPIC SPECIALIST Joann Gaffney APRN C.N.P. LAB BLOOD ADD-ON Fi nal Result [facility] [address] [place] [address], [place] NPRG [facility] [address] [place] [address] * (ABNORMAL) Basic Metabolic Panel (09/30/2024 1:00 PM EPIC SPECIALIST) Potassium, P 3.9 3.6 - 5.2 mmol/L 09/30/2024 2:37 PM EPIC SPECIALIST NPRG Sodium, P 141 135 - 145 mmol/L 09/30/2024 2:37 PM EPIC SPECIALIST NPRG Chloride, P 102 98 - 107 mmol/L 09/30/2024 2:37 PM EPIC SPECIALIST NPRG Bicarbonate, P 30(H) 22 - 29 mmol/L 09/30/2024 2:37 PM EPIC SPECIALIST NPRG Anion Gap, P 9 7 - 15 09/30/2024 2:37 PM EPIC SPECIALIST NPRG BUN (Blood Urea Nitrogen), P 12 6 - 21 mg/dL 09/30/2024 2:37 PM EPIC SPECIALIST NPRG Creatinine 0.77 0.59 - 1.04 mg/dL 09/30/2024 2:37 PM EPIC SPECIALIST NPRG Estimated GFR (eGFR) >90 >=60 mL/min/BSA 09/30/2024 2:37 PM EPIC SPECIALIST NPRG Comment: Estimated GFR calculated using the 2020 CKD_EPI creatinine equation. Calcium, Total, P 8.9 8.6 - 10.0 mg/dL 09/30/2024 2:37 PM EPIC SPECIALIST NPRG Glucose, P 159(H) 70 - 140 mg/dL 09/30/2024 2:37 PM EPIC SPECIALIST NPRG Blood (Blood, Venous) 09/30/2024 1:00 PM EPIC SPECIALIST 09/30/2024 2:19 PM EPIC SPECIALIST us Joann Gaffney APRN C.N.PEmmanuel LAB BLOOD ADD-ON Fi nal Result [facility] [address] [place] [address], [place] NPRG [facility] [address] [place] [address] * (ABNORMAL) CBC with Differential, Blood (09/24/2024 1:15 PM EPIC SPECIALIST) Pathologist [facility] Hemoglobin 7.8(L) 11.6 - 15.0 g/dL 09/24/2024 3:24 PM EPIC SPECIALIST NPRG Hematocrit 25.6(L) 35.5 - 44.9 % 09/24/2024 3:24 PM EPIC SPECIALIST NPRG Erythrocytes 2.69(L) 3.92 - 5.13 x10(12)/L 09/24/2024 3:24 PM EPIC SPECIALIST NPRG MCV 95.2 78.2 - 97.9 fL 09/24/2024 3:24 PM EPIC SPECIALIST NPRG RBC Distrib Width 15.8 12.2 - 16.1 % 09/24/2024 3:24 PM EPIC SPECIALIST NPRG Platelet Count 376(H) 157 - 371 x10(9)/L 09/24/2024 3:24 PM EPIC SPECIALIST NPRG Leukocytes 7.0 3.4 - 9.6 x10(9)/L 09/24/2024 3:24 PM EPIC SPECIALIST NPRG Neutrophils 5.05 1.56 - 6.45 x10(9)/L 09/24/2024 3:24 PM EPIC SPECIALIST NPRG Lymphocytes 0.85(L) 0.95 - 3.07 x10(9)/L 09/24/2024 3:24 PM EPIC SPECIALIST NPRG Monocytes 0.74 0.26 - 0.81 x10(9)/L 09/24/2024 3:24 PM EPIC SPECIALIST NPRG Eosinophils 0.34 0.03 - 0.48 x10(9)/L 09/24/2024 3:24 PM EPIC SPECIALIST NPRG Basophils <0.04 0.01 - 0.08 x10(9)/L 09/24/2024 3:24 PM EPIC SPECIALIST NPRG Blood (Blood, Venous) 09/24/2024 1:15 PM EPIC SPECIALIST 09/24/2024 3:14 PM EPIC SPECIALIST us Cleo Campos D.O. LAB BLOOD ADD-ON Final Result 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 LAB BLOOD ADD-ON Final Result OTHER (SPECIFY IN IN[employer]ER [employer]) N/A * Lipid Panel (07/19/2019) EXT Cholesterol, Total, S 151 OTHER (SPECIFY IN [employer]) EXT Triglycerides, S 120 OTHER (SPECIFY IN INST[employer]ER [employer]IOR [employer]) EXT Cholesterol, HDL, S 59 OTHER (SPECIFY IN INST[employer]ER [employer]) Blood (Blood, Venous) Ordering Provider External M.D. 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
--- OUTSIDE RECORDS SUMMARY | 2024-12-19 08:27 | XMS_ITS | Encounter Summary ---
Author Organization [facility] Address [address] [place] [id number] Care Team Providers Care Dye Expert Name Role Phone David Parisi MD Primary Care Provider Uriel Mercedes MD Unavailable Brandon Parikh MD Unavailable Reason for Visit * Reason Onset Date Comments Call Back 04/20/2023 Pt needs to spederek bar with someone concerning her 05/01 procedure Clinic Care Coordination - Follow-up 04/20/2023 Encounter Details Date Type Department Care Team (Late st Contact Info) Description 04/20/2023 Telephone [facility] [place] [address] [place] [phone] Uriel Mercedes MD [address] [place] [address] Call Back (Pt needs to speak with someone concerning her 05/01 procedure ); Clinic Care Coordination - Follow-up Social History Tobacco Use Types Packs/Day Years Used Date Smoking Tobacco: Never Smokeless Tobacco: Never Alcohol Use Standard Drinks/Week Comments Not Currently 0 (1 standard drink = 0.6 oz pur e alcohol) PHQ-2 Answer Date Recorded PHQ-2 Score 1 04/11/2023 Comments No Sex and Gender Information Value Date Recorded Sex Assigned at Not on file Legal Sex Female 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 No / Unsure 04/11/2023 11:29 AM CDT documented as of this encounter Miscellaneous Notes * Telephone Encounter - Johanna Platt, RN - 04/20/2023 6:11 PM CDT See phone message this afternoon 04-20-23 from pt. I called pt back & then spoke to pt. See his addendum to dictation of 03-16-23. Johanna Platt RN. * Telephone Encounter - Kristina Cordero - 04/20/2023 1:24 PM CDT [facility] Phone Message May a detailed message be left on voicemail: yes Reason for Call: Other: Patient is calling because she is having trouble with her pre op. Patient had issue, and was told she may need to reschedule her surgery, but patient is does not want to have that surgery postponed. Patient has not had any success getting information from the pre op scheduling department, and would like to discuss with Dr Mercedes. Please call patient. Action Taken: Other: [phone] Travel Screening: Not Applicable documented in this encounter Plan of Treatment Upcoming Encounters Date Type Department Care Team (Late st Contact Info) Description 05/29/2025 9:40 AM CDT Ancillary Procedure [facility] [address] [place] [phone] Uriel Mercedes MD [address] [place] [address] 05/29/2025 10:40 AM CDT Office Visit [facility] [address] [place] [phone] Uriel Mercedes MD [address] [facility] [place] [address] documented as of this encounter Visit Diagnoses Not on filedocumented in this encounter Care Teams Dye Expert Relationship Specialty Start Date End Date David Parisi MD [address] [place] [address] PCP - General 03/16/23 Uriel Mercedes MD [address] [facility] [place] [address] Assigned Musculoskeletal Provider 03/25/23 Brandon Parikh MD [address] [place] [address] Assigned Neuroscience Provider 04/29/23 11/23/24 documented as of this encounter
--- NOTE | 2024-12-19 08:43 | CRLHL7_ITS ---
For Patients: As a result of the Century Cures Act, medical imaging exams and procedure reports are released immediately into your electronic medical record. You may view this report before your referring provider. If you have questions, please contact your health care provider. INDICATION: Hypoxia, dizziness. TECHNIQUE: Chest 2 views. COMPARISON: X-ray chest September 11, 2024 FINDINGS/ IMPRESSION: No focal consolidation, effusion or pneumothorax. Cardiac size is within normal limit without pulmonary edema. Posterior spinal fusion of T12 to lumbar spines are present. Dictated by Farheen Zelaya MD @ 12/19/2024 9:19:29 AM (Electronically Signed)
[2024-12-19 08:55] LABS: Basophils Absolute Auto 0.05 K/uL (0.00-0.30); Basophils Percent Auto 0.6 % (0.0-3.0); Eosinophils Absolute Auto 0.55 K/uL (0.00-0.50); Eosinophils Percent Auto 6.6 % (0.0-7.0); Hematocrit 35.6 % (33.0-51.0); Hemoglobin* 11.3 gm/dL (12.0-16.0); Immature Granulocytes Abs Auto 0.01 K/uL (0.00-0.30); Immature Granulocytes Pct Auto 0.1 %; Lymphocytes Percent Auto 14.8 % (20-44); Mean Corpuscular HGB Conc 32 gm/dL (32-36); Mean Corpuscular Hemoglobin 28 pg (26-34); Mean Corpuscular Volume 89 fL (80-100); Monocytes Percent Auto 8.1 % (0.0-11.0); Neutrophils Absolute Auto 5.79 K/uL (1.7-7.0); Neutrophils Percent Auto 69.8 % (42.0-72.0); Platelet Count* 290 K/uL (140-440); RDW Coefficient of Variation % 15.2 % (11.5-15.5); Red Blood Count 3.99 m/uL (4.00-5.20)
[2024-12-19 09:00] LABS: Slide Review Reflex No
--- NOTE | 2024-12-19 09:02 | ED.GENADULT ---
HPI - General Adult General Date Seen: 12/19/24 Chief complaint: Dizziness/Vertigo Stated complaint: ems Time Seen by Provider: 12/19/24 08:50 History of Present Illness HPI narrative: 54 year old female brought to the ER today from her assisted living by EMS for evaluation of a spell where she became dizzy and sweaty. 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 She apparently received 6 weeks of IV Ancef. She had had a brief stay in a [place] [facility] in September but did not like it there is a now has been at her home/assisted living and getting a lot of support from her sister, Tessa, who is a nurse. Patient does have episodes of occasional dizziness and vertigo that have been ongoing off and on for several months. It sounds like she may have an inner ear problem. Does have been more frequent and troublesome for the past couple of weeks. On top of that, for the past 10 days or 2 weeks or so she has had episodes of nausea and some a substance of vomiting. She is not having any abdominal pain. No diarrhea (other than she had a loose stool last week on today she drank oral contrast for her abdomen CT). She is not having any headache. She has chronically poor vision but no worse than normal vision. No diplopia. No tinnitus. No trouble with her hearing. When she gets these vertigo spells she often will take meclizine which did help somewhat. She normally is able to balance we using a cane or walker. She has been working with her primary care provider, Dr. Parisi, through the [facility] system and has had a CT of her abdomen that of was apparently normal and MRI of her brain that was apparently normal. She has had lab work that is apparently normal. She has not had a urinalysis. She set up to have a gallbladder ultrasound and that is scheduled for December 30 She does have diabetes. Her sugars been doing pretty good. No definite urinary symptoms. This morning she had gotten up. She was mildly dizzy but generally pretty well. She was sitting in her chair when she needs to go to the bathroom to urinate. When she got up out of the chair she had an episode of unsteadiness and dizziness and vertigo that was much more intense than normal. She was not able to walk and keep her balance, even with her walker so she fell. She was not really injured when she fell. No loss of consciousness. She did not have seizure. Her sister, Tessa, came to check on her and found her. She was on her knees and she was quite shaky but not having a seizure. She was a little bit sweaty Patient has been feeling warm but not having any objective fevers. She is not having any chest pain. No palpitations. No trouble breathing. No cough. No orthopnea. This sister Tessa notes that she was retaining some fluid when she was in the [place] [facility] [place] in September so had been started on Lasix. With that she had actually lost about 35 lb of fluid over the past couple of months. With the new onset of the dizziness and unsteadiness last week her sister, Tessa, had the patient stop taking her Lasix she has not had any for the past 7 or 8 days. She is not noticing any new peripheral edema. She is not currently on antibiotics for infected left knee. She is not having any knee pain or swelling. When I palpate her knee during exam, it is palpably warm and hot to the touch and this is a surprise to the patient. Per [facility] medical record... Brain MRI 07/11/24 IMPRESSION: 1. No significant intracranial abnormality Labs 12/13 Sodium 146, potassium 4.0, chloride 106, bicarb 29, anion gap 11, glucose 144, BUN 14, creatinine 0.92, calcium 10.0 WBC 8.6, hemoglobin 12.5, platelet count 307 ALT 11, AST 19, bilirubin 0.2, alk-phos 151, total protein 7.5, albumin 4.0 RSV/influenza A/B, COVID PCR negative. CT abd pelvis 12/16/24 FINDINGS : GI tract: Normal caliber. Optimal distention with biphasic agent. No significant wall thickening or dilatation. Mesentery unremarkable. Liver, spleen, pancreas, adrenal glands: Unremarkable. Biliary tree unremarkable, no calcified gallstones. Kidneys and bladder: Unremarkable Lymph nodes: No adenopathy Pelvis: Stable small uterine calcification. Normal-sized uterus. Bladder unremarkable. Slightly prominent lymph nodes in the pelvic sidewall common femoral chain left greater than right measuring up to 11 millimeters. Image 163. Lung bases: Micronodule left lower lobe image 15 no change prior. Skeletal: Long segment interbody and posterior spine stabilization, intact hardware. No suspicious osseous lesion. ? IMPRESSION : 1. Unremarkable CT enterography 2. No other change from prior exam. Related Data Home Medications ?Medication ?Instructions ?Recorded ?Confirmed betamethasone dipropionate 0.05 % 1 applic topical Q12H PRN 07/03/22 10/22/24 topical cream duloxetine 20 mg capsule,delayed 40 mg PO DAILY 07/03/22 10/22/24 release lamotrigine 200 mg tablet,extended 200 mg PO HS 07/03/22 10/22/24 release 24 hr lamotrigine 250 mg tablet,extended 250 mg PO HS 07/03/22 10/22/24 release 24 hr meclizine 12.5 mg tablet 12.5 mg PO TID PRN 07/03/22 10/22/24 atorvastatin 10 mg tablet 10 mg PO QPM 02/28/23 10/22/24 glucagon 1 mg/0.2 mL subcutaneous 1 mg subcut DAILY PRN 06/28/24 10/22/24 syringe (Gvoke PFS 1-Pack) ropinirole 0.5 mg tablet 1 mg PO HS 06/28/24 10/22/24 albuterol sulfate 2.5 mg/3 mL 2.5 mg inhalation Q4H PRN 08/14/24 10/22/24 (0.083 %) solution for nebulization amlodipine 5 mg tablet 5 mg PO DAILY 08/14/24 10/22/24 ascorbic acid (vitamin C) 500 mg 500 mg PO DAILY 08/14/24 10/22/24 tablet cholecalciferol (vitamin D3) 25 50 mcg PO DAILY 08/14/24 10/22/24 mcg (1,000 unit) tablet ferrous sulfate 325 mg (65 mg 325 mg PO DAILY 08/14/24 10/22/24 iron) tablet (Feosol) insulin lispro 100 unit/mL 50 - 60 unit subcut DAILY 08/14/24 10/22/24 subcutaneous solution (Admelog U-100 Insulin lispro) acetaminophen 500 mg tablet 500 mg PO Q6H PRN 09/06/24 10/22/24 (Tylenol Extra Strength) insulin pump cart,auto,BT,G6/7 #5 ea 10/01/24 10/08/24 (Omnipod 5 G6-G7 Pods (Gen 5) subcutaneous cartridge) Calcium PO 10/08/24 10/22/24 Multiple vitamin with iron PO 10/08/24 10/22/24 furosemide 20 mg tablet 40 mg PO QAM 10/08/24 10/22/24 lisinopril 20 mg tablet 20 mg PO QDAY 10/08/24 10/22/24 doxycycline hyclate 100 mg tablet 100 mg PO BID 10/22/24 10/22/24 Previous Rx's ?Medication ?Instructions ?Recorded celecoxib 100 mg capsule 100 mg PO BID #60 caps 08/16/24 hydroxyzine pamoate 25 mg capsule 25 - 50 mg (1 - 2 x 25 mg) PO Q6H 08/16/24 PRN #60 caps lacosamide 100 mg tablet (Vimpat) 100 mg PO BID 30 days #60 tabs 08/16/24 acetaminophen 500 mg capsule 500 - 1,000 mg (1 - 2 x 500 mg) PO 09/12/24 Q6H PRN #100 caps aspirin 81 mg tablet,delayed 81 mg PO BID #60 tabs 09/12/24 release hydrocortisone 1 % topical cream 1 applic topical TID PRN #28.4 09/12/24 grams lacosamide 100 mg tablet 100 mg PO BID #60 tabs 09/12/24 pregabalin 75 mg capsule (Lyrica) 150 mg (2 x 75 mg) PO BID 30 days 09/12/24 #120 caps zolpidem 5 mg tablet 5 mg PO HS PRN 30 days #30 tabs 09/12/24 Allergies Allergy/AdvReac Type Severity Reaction Status Date / Time wheat Allergy Unknown Dizziness Verified 12/19/24 08:27 ibuprofen Allergy retinal Verified 12/19/24 08:27 hemorrhage penicillin V Allergy Rash Verified 12/19/24 08:27 [facility] Medical History (Updated 12/19/24 @ 11:59 by Alexis Rangel MD) Restless leg syndrome ?G25.81 - Restless legs syndrome (ICD-10) Dyslipidemia ?E78.5 - Hyperlipidemia, unspecified (ICD-10) Hypothyroidism ?E03.9 - Hypothyroidism, unspecified (ICD-10) Depression ?F32.A - Depression, unspecified (ICD-10) Hypertension ?I10 - Essential (primary) hypertension (ICD-10) Seizure disorder ?G40.909 - Epilepsy, unspecified, not intractable, without status epilepticus (ICD-10) Right-sided low back pain with right-sided sciatica ?M54.41 - Lumbago with sciatica, right side (ICD-10) Spinal stenosis of lumbar region without neurogenic claudication ?M48.061 - Spinal stenosis, lumbar region without neurogenic claudication (ICD-10) Lumbar disc herniation ?M51.26 - Other intervertebral disc displacement, lumbar region (ICD-10) Celiac disease ?K90.0 - Celiac disease (ICD-10) Surgical History (Updated 10/22/24 @ 10:08 by Lindsey Salcedo) Status post left knee surgery (09/11/24) ?Z98.890 - Other specified postprocedural states (ICD-10) History of arthroplasty of left knee (08/14/24) ?Z96.652 - Presence of left artificial knee joint (ICD-10) History of lumbar fusion (03/20/24) ?Z98.1 - Arthrodesis status (ICD-10) History of lumbar laminectomy for spinal cord decompression (02/22/22) ?Z98.890 - Other specified postprocedural states (ICD-10) History of laminectomy (01/14/22) ?Z98.890 - Other specified postprocedural states (ICD-10) History of endometrial ablation (2005) ?Z98.890 - Other specified postprocedural states (ICD-10) History of esophagogastroduodenoscopy (EGD) (08/2014) ?Z98.890 - Other specified postprocedural states (ICD-10) H/O bilateral cataract extraction (1987) ?Z98.41 - Cataract extraction status, right eye (ICD-10) ?Z98.42 - Cataract extraction status, left eye (ICD-10) Status post lumbar spine surgery for decompression of spinal cord (06/18/19) ?Z98.890 - Other specified postprocedural states (ICD-10) History of lumbar fusion (04/26/16) ?Z98.1 - Arthrodesis status (ICD-10) History of hysteroscopy ?Z98.890 - Other specified postprocedural states (ICD-10) History of carpal tunnel surgery of left wrist (09/28/07) ?Z98.890 - Other specified postprocedural states (ICD-10) S/P cervical spinal fusion (03/18/10) ?Z98.1 - Arthrodesis status (ICD-10) History of carpal tunnel surgery of right wrist (07/15/08) ?Z98.890 - Other specified postprocedural states (ICD-10) History of appendectomy (2001) ?Z90.49 - Acquired absence of other specified parts of digestive tract (ICD-10) Social History What is your current living situation?: I presently have a place to live Problems where you live: no known problems In the past 12 months, utilities in danger of being shut off: no In past 12 months, lack of transportation kept you from medical appts, meetings, work, or getting things needed for daily living: no In the past 12 mos, have been you worried that your food would run out before you had money to buy more?: never true In the past 12 mos, the food you bought just didn't last and you didn't have money to buy more?: never true Smoking Status: Never smoker Do you use any of these nicotine containing products: None Second hand tobacco smoke exposure: No How often do you have a drink containing alcohol: monthly or less How many standard drinks containing alcohol do you have on a typical day: 1 or 2 How often do you have six or more drinks on one occasion: Never AUDIT-C Alcohol total score: 1 Non-prescribed substance use: denies use Caffeine: Yes (coffee) How often does anyone, including family, friends and others, physically hurt you: never How often does anyone, including family, friends and others, insult or talk down to you: never How often does anyone, including family, friends and others, threaten you with harm: never How often does anyone, including family, friends and others, scream or curse at you: never Are you using contraception or practicing any form of control: No Exam Narrative: Exam Narrative: Constitutional: Appears well-developed and well-nourished. Alert. Conversant but very disjointed historian. History is obtained partly from the patient and partly from her sister Tessa. Overall she is speaking easily. Non toxic. HENT: Head: Atraumatic. No depressed skull fracture, [place]accoon Eyes, Lindsey's sign, or hemotympanum. Face normal. TMs normal Nose: Nose normal. Mouth/Throat: Oral mucosa is clear and moist. no trismus. Pharynx normal. Tonsils symmetric. No tonsillar enlargement, erythema, or exudate. Eyes: Positive horizontal nystagmus. Conjunctivae normal. EOM normal. Pupils equal, round, and reactive to light. No scleral icterus. Neck: Normal range of motion. Neck supple. No tracheal deviation present. Cardiovascular: Normal rate, regular rhythm. No gallop. No friction rub. No murmur heard. Symmetric radial artery pulses Pulmonary/Chest: Effort normal. No stridor. No respiratory distress. No wheezes. No rales. No rhonchi . No tenderness. Abdominal: Soft. Bowel sounds normal. No distension. No mass. No tenderness. No rebound. No guarding. No CVA tenderness. Musculoskeletal: RUE: Normal range of motion. No tenderness. No deformity LUE: Normal range of motion. No tenderness. No deformity RLE: Normal range of motion. No edema. No tenderness. No deformity LLE: Normal range of motion. No edema. No tenderness. There is subtle small area of localized erythema on the lower portion of the patient's left knee and the left knee is palpably warm to the touch. No definite knee effusion. Normal range of motion. Anterior knee incision looks well-healed No deformity Lymph: No ascending lymphangitis Neurological: Alert and oriented to person, place, and time. Normal strength. CN II-VII intact. No sensory deficit. GCS eye subscore is 4. GCS verbal subscore is 5. GCS motor subscore is 6. Normal coordination . Able to sit up unassisted for posterior lung exam does not feel dizzy. However when she was up at the bedside she did get dizzy and unsteady Skin: Skin is warm and dry. No rash noted. No pallor. Normal capillary refill. Psychiatric: Normal mood. Normal affect. Const: Vital Signs, click to edit/add: Vital Signs - 24 hr 12/19/24 08:28 12/19/24 08:31 12/19/24 08:44 Temperature 98.9 F Pulse Rate 89 Pulse Rate [Pulse Oximeter] 87 Respiratory Rate 16 17 Blood Pressure 139/85 Blood Pressure [Ri ght Forearm] 139/85 Pulse Oximetry 95 96 87 L Oxygen Delivery Me thod Room Air Room Air Room Air Oxygen Flow Rate 12/19/24 08:45 12/19/24 08:50 12/19/24 09:04 Temperature Pulse Rate 85 92 Pulse Rate [Pulse Oximeter] Respiratory Rate 10 L Blood Pressure Blood Pressure [Ri ght Forearm] Pulse Oximetry 88 96 95 Oxygen Delivery Me thod Room Air Nasal Cannula Nasal Cannula Oxygen Flow Rate 1 1 12/19/24 09:08 12/19/24 09:32 12/19/24 10:02 Temperature Pulse Rate 85 84 82 Pulse Rate [Pulse Oximeter] Respiratory Rate 12 Blood Pressure 155/64 H 143/49 H 127/53 L Blood Pressure [Ri ght Forearm] Pulse Oximetry 96 99 97 Oxygen Delivery Me thod Nasal Cannula Nasal Cannula Room Air Oxygen Flow Rate 1 1 12/19/24 10:03 12/19/24 10:15 12/19/24 11:05 Temperature Pulse Rate 87 81 79 Pulse Rate [Pulse Oximeter] Respiratory Rate 14 Blood Pressure 135/65 Blood Pressure [Ri ght Forearm] Pulse Oximetry 94 92 97 Oxygen Delivery Me thod Room Air Room Air Room Air Oxygen Flow Rate 12/19/24 11:30 12/19/24 12:02 12/19/24 12:30 Temperature Pulse Rate 83 89 82 Pulse Rate [Pulse Oximeter] Respiratory Rate 11 L 16 14 Blood Pressure 108/51 L Blood Pressure [Ri ght Forearm] Pulse Oximetry 96 92 93 Oxygen Delivery Me thod Room Air Room Air Oxygen Flow Rate Course Vital Signs Vital signs: Initial Vital Signs Temperature 98.9 F 12/19/24 08:28 Temperature Source Temporal Artery Scan 12/19/24 08:28 Pulse Rate 87 12/19/24 08:28 Pulse Rhythm Regular 12/19/24 08:28 Respiratory Rate 16 12/19/24 08:28 Blood Pressure 139/85 12/19/24 08:28 Blood Pressure Mean 103 12/19/24 08:28 Blood Pressure Position Supine 12/19/24 08:28 Pulse Oximetry 95 12/19/24 08:28 Oxygen Delivery Method Room Air 12/19/24 08:28 Vital Signs Temperature 98.9 F 12/19/24 08:28 Pulse Rate 87 12/19/24 08:28 Respiratory Rate 16 12/19/24 08:28 Blood Pressure 139/85 12/19/24 08:28 Pulse Oximetry 95 12/19/24 08:28 Oxygen Delivery Method Room Air 12/19/24 08:28 Temperature 98.9 F 12/19/24 08:28 Pulse Rate 82 12/19/24 12:30 Respiratory Rate 14 12/19/24 12:30 Blood Pressure 108/51 L 12/19/24 12:02 Pulse Oximetry 93 12/19/24 12:30 Oxygen Delivery Method Room Air 12/19/24 12:02 Oxygen Flow Rate 1 12/19/24 09:32 Medications Administered Medications: Discontinued Medications Generic Name Dose Route Start Last Admin Trade Name Omar PRN Reason Stop Dose Admin Insulin Human Regular 2 unit 12/19/24 12:50 12/19/24 13:02 Insulin Regular, Human 100 Unit/Ml Vial SUBCUT 12/19/24 12:51 2 unit ONCE ONE Administration Meclizine HCl 25 mg 12/19/24 12:01 12/19/24 12:19 Meclizine Hcl 25 Mg Tablet PO 12/19/24 12:02 25 mg ONCE ONE Administration Medical Decision Making MDM Narrative Medical decision making narrative: 54-year-old female with a complex past medical history brought to the ER today by EMS from her assisted living/home for an episode of dizziness and unsteadiness where she fell to the ground. 1. Neuro. Does report intermittent episodes of vertigo off and on for the past several months and is thought to have potentially an inner ear problem. She has actually been set up to start physical therapy for her balance, but has been too unwell to go last week and is here in the ER today so will miss her PT appointment this morning. She had had a brain MRI last July apparently ordered because of the dizzy spells that was normal. She is complaining of dizziness that happened at home but is actually improvement she is here in the ER bed. No other focal deficits. Previous MR imaging for these dizzy spells has been normal (July 2024). Repeat head CT scan today is normal. No other focal deficits such as diplopia, dysarthria, focal numbness or weakness to suggest acute stroke. However patient has persistent dizziness and unsteadiness and does not feel that she is steady enough to go home. 2. Endocrine. Has type 1 diabetes. Blood sugar well controlled upon arrival. Sugar did spike up to 259 while here in the ER. Patient gave herself her typical 1 unit insulin bolus from her pump. No evidence for DKA. 3. Renal/electrolytes. Kidney function and electrolytes and sodium normal. 4. Pulmonary. She was noted to be intermittently hypoxic when she presented and was placed on 2 L nasal cannula. However patient had no shortness of breath. She ambulated in the hallway without any hypoxia. No recent cough or infection symptoms. Chest x-ray clear. No evidence for pneumonia or pulmonary edema. D dimer was abnormal. Ct PA was obtained and is negative for PE. CT scan does show a few small pulmonary nodules but the patient has no history of smoking or risk factors for lung cancer and therefore per Fleischner Society guidelines does not need follow-up imaging. CT scan does show a nonspecific mosaic pattern in the lungs which can be seen with chronic small airways disease. She is not having any wheezing or bronchospasm. Subsequently the nurses to her off oxygen she maintained sats in the mid 90s on room air without any respiratory difficulty. CT also shows small pulmonary nodules. Patient is a nonsmoker and has no high-risk factors for lung cancer. Family notes that she has had previous nodules noted on previous CT scans. At this point she would be low risk per Fleischner guidelines. 5. Cardiac- no chest pain. EKG and monitor shows sinus rhythm. No clear evidence for arrhythmia. Screening troponin is normal. BNP normal. No evidence for pulmonary edema on chest x-ray or CT. 6. Infectious disease. Has a history of infected left knee prosthetic joint. Had completed 6 weeks of IV antibiotics and has antibiotic spacer. Does not have any new knee pain or swelling but does have subtle erythema in definitive warm on my palpation this morning. Concern for potential recurrent left knee infection. Chest x-ray negative for infection. Urinalysis normal. X-rays of the knee is obtained shows no evidence for any acute fracture or hardware displacement. It does show small knee joint effusion. There is question of a potential small area of gas per Radiology. I do not appreciate any palpable crepitus to suggest a gas-forming infection on my exam. However the knee is definitely warm to touch. Evaluation of inflammatory marker shows a mixed picture. White count is 8.3. Differential shows 70% neutrophils, 15% lymphocytes. ESR is elevated at 24. CRP mildly elevated at 1.4. Procalcitonin is low at 0.07. I placed a consult to Orthopedics at about 11:00 a.m.. They were in the OR and took a little while to respond to the ER. Patient was evaluated by the ortho PA. At this point the patient definitely has a knee joint effusion but they do not feel that her knee is red or asymmetrically warm. They reviewed the x-ray imaging including the report of gas per Radiology. We discussed the patient's inflammatory markers. At this point the recommendation is watchful waiting rather than initiation of empiric antibiotics or aspiration. 7. Disposition. Even after meclizine patient continues to be a bit unsteady here in the ER. She does not feel steady enough that she can discharge home. Therefore she will be admitted to the hospitalist service, under obstetrics. Dr. Conn accepting. Lab Data Labs: Lab Results 12/19/24 12/19/24 12/19/24 Range/Units 08:41 08:47 09:33 WBC 8.30 (4.50-11.00) K/uL RBC 3.99 L (4.00-5.20) m/uL Hgb 11.3 L (12.0-16.0) gm/dL Hct 35.6 (33.0-51.0) % MCV 89 (80-100) fL MCH 28 (26-34) pg MCHC 32 (32-36) gm/dL RDW Coeff of Eliud 15.2 (11.5-15.5) % Plt Count 290 (140-440) K/uL Neut % (Auto) 69.8 (42.0-72.0) % Lymph % (Auto) 14.8 L (20-44) % [place] % (Auto) 8.1 (0.0-11.0) % Eos % (Auto) 6.6 (0.0-7.0) % Baso % (Auto) 0.6 (0.0-3.0) % Neut # (Auto) 5.79 (1.7-7.0) K/uL Lymph # (Auto) 1.20 (0.90-2.90) K/uL [place] # (Auto) 0.70 (0.00-0.90) K/UL Eos # (Auto) 0.55 H (0.00-0.50) K/uL Baso # (Auto) 0.05 (0.00-0.30) K/uL Abs Immat Gran (auto) 0.01 (0.00-0.30) K/uL Imm/Tot Granulo (auto) 0.1 % ESR 42 H (2-20) mm/hr D-Dimer Quant (PE/DVT) 2.82 H (0.00-0.50) ug/ml Sodium 142 (135-149) mmol/L Potassium 4.1 (3.6-5.1) mmol/L Chloride 105 (96-114) mmol/L Carbon Dioxide 30 (20-32) mmol/L Anion Gap 7 (7-15) mEq/L BUN 17 (7-30) mg/dL Creatinine 0.8 (0.5-1.5) mg/dL Estimated Creat Clear 57.07 Estimated GFR 87 ml/min Glucose 121 H (60-115) mg/dL Calcium 8.7 (8.4-10.6) mg/dL Troponin I < 0.01 (0.01-0.04) ng/mL C-Reactive Protein 1.4 H (0.5-1.0) mg/dL NT-Pro-B Natriuret Pep 47 pg/mL Procalcitonin 0.07 (<0.50) ng/mL Urine Color (Yellow) Urine Appearance (Clear) Urine pH (5.0-8.5) Ur Specific [place] (1.000-1.030) Urine Protein (Negative) Urine Glucose (UA) (Negative) Urine Ketones (Negative) Urine Blood (Negative) Urine Nitrite (Negative) Urine Bilirubin (Negative) Urine Urobilinogen (0.2-1.0) Ur Leukocyte Esterase (Negative) Urine RBC (0-2) Urine WBC (0-5) Ur Squamous Epith Cells (None-Few) Urine Bacteria (None) SARS-CoV-2 (PCR) Negative SARS-CoV-2 (Negative) Influenza Type A (PCR) Negative PCR FLU A (Negative) Influenza Type B (PCR) Negative PCR FLU B (Negative) RSV (PCR) Negative PCR RSV (Negative) POC Troponin I 0.00 L (0.01-0.04) ng/ml 03/20/25 Range/Units 09:50 WBC (4.50-11.00) K/uL RBC (4.00-5.20) m/uL Hgb (12.0-16.0) gm/dL Hct (33.0-51.0) % MCV (80-100) fL MCH (26-34) pg MCHC (32-36) gm/dL RDW Coeff of Eliud (11.5-15.5) % Plt Count (140-440) K/uL Neut % (Auto) (42.0-72.0) % Lymph % (Auto) (20-44) % [place] % (Auto) (0.0-11.0) % Eos % (Auto) (0.0-7.0) % Baso % (Auto) (0.0-3.0) % Neut # (Auto) (1.7-7.0) K/uL Lymph # (Auto) (0.90-2.90) K/uL [place] # (Auto) (0.00-0.90) K/UL Eos # (Auto) (0.00-0.50) K/uL Baso # (Auto) (0.00-0.30) K/uL Abs Immat Gran (auto) (0.00-0.30) K/uL Imm/Tot Granulo (auto) % ESR (2-20) mm/hr D-Dimer Quant (PE/DVT) (0.00-0.50) ug/ml Sodium (135-149) mmol/L Potassium (3.6-5.1) mmol/L Chloride (96-114) mmol/L Carbon Dioxide (20-32) mmol/L Anion Gap (7-15) mEq/L BUN (7-30) mg/dL Creatinine (0.5-1.5) mg/dL Estimated Creat Clear Estimated GFR ml/min Glucose (60-115) mg/dL Calcium (8.4-10.6) mg/dL Troponin I (0.01-0.04) ng/mL C-Reactive Protein (0.5-1.0) mg/dL NT-Pro-B Natriuret Pep pg/mL Procalcitonin (<0.50) ng/mL Urine Color Light yellow (Yellow) Urine Appearance Clear (Clear) Urine pH 6.0 (5.0-8.5) Ur Specific [place] 1.010 (1.000-1.030) Urine Protein Negative (Negative) Urine Glucose (UA) Negative (Negative) Urine Ketones Negative (Negative) Urine Blood Negative (Negative) Urine Nitrite Negative (Negative) Urine Bilirubin Negative (Negative) Urine Urobilinogen 0.2 (0.2-1.0) Ur Leukocyte Esterase Negative (Negative) Urine RBC 0-2 (0-2) Urine WBC 0-2 (0-5) Ur Squamous Epith Cells Few (None-Few) Urine Bacteria None (None) SARS-CoV-2 (PCR) (Negative) Influenza Type A (PCR) (Negative) Influenza Type B (PCR) (Negative) RSV (PCR) (Negative) POC Troponin I (0.01-0.04) ng/ml Imaging Data CT scan - chest: Attestation: I have reviewed the pertinent imaging results. Radiologist's impression: IMPRESSION: 1. No pulmonary embolism or acute cardiopulmonary process. 2. Nonspecific mosaic attenuation of the lung parenchyma, which can be seen with chronic small vessel or small airway disease. 3. Stable few solid pulmonary nodules of less than 6 mm. FLEISCHNER SOCIETY GUIDELINES - SOLID NODULES: MULTIPLE LOW RISK - nodule less than 6 mm: No routine follow-up. -nodule 6-8 mm: CT at 3-6 months, then consider CT at 18-24 months. -nodule greater than 8 mm: CT at 3-6 months, then consider CT at 18-24 months. MULTIPLE HIGH RISK - nodule less than 6 mm: Optional CT at 12 months. -nodule 6-8 mm: CT at 3-6 months, then at 18-24 months. -nodule greater than 8 mm: CT at 3-6 months, then at 18-24 months. XR knee: Attestation: I have reviewed the pertinent imaging results. Radiologist's impression: Impression: 1. Unchanged alignment of the left knee prosthesis. No evidence of hardware complication. 2. No displaced periprosthetic fracture. 3. Small knee joint effusion and prepatellar/lateral knee soft tissue swelling. Questionable small focus of soft tissue gas along the medial aspect of the patella on sunrise view. While findings may be artifactual, differential considerations include soft tissue laceration versus gas-forming infection. Dictated by Lali Rondon MD @ 12/19/2024 11:05:[address] scan - head: Attestation: I have reviewed the pertinent imaging results. Radiologist's impression: IMPRESSION: No acute findings. Chest x-ray: Attestation: I have reviewed the pertinent imaging results. Radiologist's impression: FINDINGS/ IMPRESSION: No focal consolidation, effusion or pneumothorax. Cardiac size is within normal limit without pulmonary edema. Posterior spinal fusion of T12 to lumbar spines are present. ECG Data Attestation: I personally reviewed and interpreted this ECG as follows: Interpretation: Normal sinus rhythm Rate: 85 IN: 168 QRS axis: Normal axis. No pathologic Q-waves. ST segment/T wave: No ST segment elevation or depression. QTc: 428 Discharge Plan Discharge Clinical Impression: Vertigo, Acute hyperglycemia, Effusion of knee joint, left Prescriptions: No Action lamotrigine 250 mg tablet extended release 24hr 250 mg PO HS lamotrigine 200 mg tablet extended release 24hr 200 mg PO HS duloxetine 20 mg capsule,delayed release(DR/EC) 40 mg PO DAILY betamethasone dipropionate 0.05 % cream 1 applic topical Q12H PRN meclizine 12.5 mg tablet 12.5 mg PO TID PRN doxycycline hyclate 100 mg tablet 100 mg PO BID (DME) Omnipod 5 G6-G7 Pods (Gen 5) Cartridge See Rx Instructions subcut .MEDSUPPLY Qty: 5 Rx Instructions: As directed furosemide 20 mg tablet 40 mg PO QAM Patient Comments: Patient takes 40 mg in AM and 20 mg PM. lisinopril 20 mg tablet 20 mg PO QDAY Multiple vitamin with iron PO Calcium PO Gvoke PFS 1-Pack Syringe 1 mg/0.2 mL syringe 1 mg subcut DAILY PRN ropinirole 0.5 mg tablet 1 mg PO HS acetaminophen [Tylenol Extra Strength] 500 mg tablet 500 mg PO Q6H PRN atorvastatin 10 mg tablet 10 mg PO QPM ascorbic acid (vitamin C) 500 mg tablet 500 mg PO DAILY albuterol sulfate 2.5 mg /3 mL (0.083 %) solution for nebulization 2.5 mg inhalation Q4H PRN amlodipine 5 mg tablet 5 mg PO DAILY ferrous sulfate [Feosol] 325 mg (65 mg iron) tablet 325 mg PO DAILY cholecalciferol (vitamin D3) 25 mcg (1,000 unit) tablet 50 mcg PO DAILY insulin lispro [Admelog U-100 Insulin lispro] 100 unit/mL solution 50 - 60 unit subcut DAILY Rx Instructions: SUBQ PUMP celecoxib 100 mg capsule 100 mg PO BID Qty: 60 0RF hydroxyzine pamoate 25 mg capsule 25 - 50 mg PO Q6H PRNQty: 60 0RF lacosamide [Vimpat] 100 mg tablet 100 mg PO BID 30 Days Qty: 60 0RF hydrocortisone 1 % cream 1 applic topical TID PRNQty: 28.4 0RF zolpidem 5 mg Tablet 5 mg PO HS PRN30 Days Qty: 30 1RF pregabalin [Lyrica] 75 mg Capsule 150 mg PO BID 30 Days Qty: 120 1RF acetaminophen 500 mg capsule 500 - 1,000 mg PO Q6H MDD 4000mg PRNQty: 100 0RF aspirin 81 mg tablet,delayed release (DR/EC) 81 mg PO BID Qty: 60 0RF Rx Instructions: Medication to help prevent blood clots postoperatively; take TWICE daily. lacosamide 100 mg tablet 100 mg PO BID Qty: 60 0RF Follow Up/Referrals: David Parisi MD [Primary Care Provider] -
[2024-12-19 09:06] LABS: Chloride* 105 mmol/L (96-114)
[2024-12-19 09:07] LABS: Potassium* 4.1 mmol/L (3.6-5.1); Sodium* 142 mmol/L (135-149)
[2024-12-19 09:09] LABS: Blood Urea Nitrogen* 17 mg/dL (7-30); Creatinine* 0.8 mg/dL (0.5-1.5); Est. Creatinine Clearance* 57.07; Estimated Glomerular Filt Rate 87 ml/min
[2024-12-19 09:10] LABS: Anion Gap 7 mEq/L (7-15); Calcium* 8.7 mg/dL (8.4-10.6); Carbon Dioxide* 30 mmol/L (20-32); Glucose* 121 mg/dL (60-115)
[2024-12-19 09:44] LABS: D Dimer Quantitative* 2.82 ug/ml (0.00-0.50)
--- NOTE | 2024-12-19 09:44 | CRLHL7_ITS ---
For Patients: As a result of the Cures Act, medical imaging exams and procedure reports are released immediately into your electronic medical record. You may view this report before your referring provider. If you have questions, please contact your health care provider. Indication: Left knee warmth, history of infection, also fall today Technique: Three view(s) of the left knee. Comparison: 10/22/2024. Findings: Unchanged position and alignment of the left knee prosthesis. Hardware is intact and without periprosthetic lucency or fracture. Osseous demineralization. Generalized soft tissue swelling along the lateral and anterior aspect of the knee. Small knee joint effusion. Query linear focus of soft tissue gas along the medial aspect of the patella on sunrise view. Impression: 1. Unchanged alignment of the left knee prosthesis. No evidence of hardware complication. 2. No displaced periprosthetic fracture. 3. Small knee joint effusion and prepatellar/lateral knee soft tissue swelling. Questionable small focus of soft tissue gas along the medial aspect of the patella on sunrise view. While findings may be artifactual, differential considerations include soft tissue laceration versus gas-forming infection. Dictated by Lali Rondon MD @ 12/19/2024 11:05:34 AM (Electronically Signed)
--- NOTE | 2024-12-19 09:44 | CRLHL7_ITS ---
For Patients: As a result of the Century Cures Act, medical imaging exams and procedure reports are released immediately into your electronic medical record. You may view this report before your referring provider. If you have questions, please contact your health care provider. INDICATION: Vertigo. Headache. COMPARISON: None TECHNIQUE: CT examination of the head was performed as axial sections without intravenous contrast. Images were obtained from the vertex of the skull through the skull base. Please note that all CT scans at this facility use dose modulation, iterative reconstruction, and/or weight-based dosing when appropriate to reduce radiation dose to as low as reasonably achievable. FINDINGS: The brain shows no sign of mass lesion, mass effect, hemorrhage, or edema. Sulci and ventricles are normal in appearance for patient age. The visualized portions of the orbits are normal in appearance. The osseous structures are normal in appearance with no sign of abnormality in the skull base or calvarium. Multiple dural-based calcifications are incidentally noted. IMPRESSION: No acute findings. Please note that all CT scans at this facility use dose modulation, iterative reconstruction, and/or weight-based dosing when appropriate to reduce radiation dose to as low as reasonably achievable. Dictated by Venkata Broderick MD @ 12/19/2024 10:49:31 AM (Electronically Signed)
[2024-12-19 09:55] LABS: C Reactive Protein* 1.4 mg/dL (0.5-1.0)
--- NOTE | 2024-12-19 10:02 | CRLHL7_ITS ---
For Patients: As a result of the 21st Century Cures Act, medical imaging exams and procedure reports are released immediately into your electronic medical record. You may view this report before your referring provider. If you have questions, please contact your health care provider. INDICATION: Hypoxia, abnormal D-dimer. TECHNIQUE: CT chest PE was acquired with 95 cc Isovue 370 IV contrast. Images and 3D reconstruction MIP angiographic were obtained. COMPARISON: CT chest September 2024 FINDINGS: Heart and vasculature: Contrast opacification of the pulmonary arterial tree is adequate. No sign of pulmonary embolism. Mild cardiomegaly without pericardial effusion. Thoracic aorta and pulmonary artery are of normal caliber. Lungs and pleura: Small 4 millimeter right upper lobe pulmonary nodule (/66) and right middle lobe pulmonary nodule 4 millimeter () solid nodule of 4 millimeter at the left lung base ( are similar to previous CT. No new or concerning lung nodule. Scattered mosaic attenuation of the lung parenchyma. No pleural effusion or pneumothorax. Lymph nodes/mediastinum: No suspicious mediastinal or hilar lymph nodes by size criteria. Circumferential esophageal wall thickening can be seen with esophagitis in the appropriate clinical settings. Upper abdomen: Evaluation is limited by streak artifact. Bones: Multilevel degenerative changes of the spine. Posterior spinal fusion of T12 through lower lumbar spine is seen. No acute osseous abnormality. IMPRESSION: 1. No pulmonary embolism or acute cardiopulmonary process. 2. Nonspecific mosaic attenuation of the lung parenchyma, which can be seen with chronic small vessel or small airway disease. 3. Stable few solid pulmonary nodules of less than 6 mm. FLEISCHNER SOCIETY GUIDELINES - SOLID NODULES: MULTIPLE LOW RISK - nodule less than 6 mm: No routine follow-up. -nodule 6-8 mm: CT at 3-6 months, then consider CT at 18-24 months. -nodule greater than 8 mm: CT at 3-6 months, then consider CT at 18-24 months. MULTIPLE HIGH RISK - nodule less than 6 mm: Optional CT at 12 months. -nodule 6-8 mm: CT at 3-6 months, then at 18-24 months. -nodule greater than 8 mm: CT at 3-6 months, then at 18-24 months. Please note that all CT scans at this facility use dose modulation, iterative reconstruction, and/or weight-based dosing when appropriate to reduce radiation dose to as low as reasonably achievable. Dictated by Farheen Zelyaa MD @ 12/19/2024 11:04:04 AM (Electronically Signed)
[2024-12-19 10:03] LABS: Appearance Urine Clear (Clear); Bilirubin Urine Negative (Negative); Blood Urine Negative (Negative); Color Urine Light yellow (Yellow); Glucose Urine Negative (Negative); Ketones Urine Negative (Negative); Leukocyte Esterase Urine Negative (Negative); Nitrite Urine Negative (Negative); Protein Urine Negative (Negative); Urobilinogen Urine 0.2 (0.2-1.0)
[2024-12-19 10:09] LABS: Procalcitonin* 0.07 ng/mL (<0.50)
[2024-12-19 10:10] LABS: NT Pro B Type NatriureticPept* 47 pg/mL; Troponin I* < 0.01 ng/mL (0.01-0.04)
[2024-12-19 10:15] LABS: RBC Urine 0-2 (0-2); Squamous Epithelial Cell Urine Few (None-Few); WBC Urine 0-2 (0-5)
--- OUTSIDE RECORDS SUMMARY | 2024-12-19 10:16 | XMS_ITS | Clinical Summary ---
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, [...] Pump (OMNIPOD 5 G6 PODS, GEN 5,) [facility] [place]al rate #1 (2560-9042): 0.8 units/hr Basal rate #2 (5181-3875): 0.85 units/hr 4 Active polyethylene glycol (MIRALAX) [...] Department Care Team Description 12/05/2024 8:40 AM ROOF MECHANIC Office Visit [facility] [address] [place] [phone] Uriel Mercedes MD S/P lumbar spinal fusion (Primary Dx) 12/05/2024 8:20 AM ROOF MECHANIC Ancillary Procedure [facility] Xray [address] [place] [phone] Uriel Mercedes MD S/P spinal fusion; Herniated lumbar intervertebral disc; History of fusion of cervical spine; Status post lumbar spinal fusion 12/05/2024 Orders Only [facility] [address] [phone] Uriel Mercedes MD S/P lumbar spinal fusion (Primary Dx); Herniated lumbar intervertebral disc; Status post lumbar spinal fusion 12/05/2024 Travel 11/13/2024 Orders Only [facility] [address] [phone] Uriel Mercedes MD S/P spinal fusion (Primary [...] on file Legal Sex Female 5:08 AM ROOF MECHANIC Gender Identity Not on file Sexual [...] Description 05/29/2025 9:40 AM CDT Ancillary Procedure [facility] [address] [place] [phone] Uriel Mercedes MD [address] [place] [address] 05/29/2025 10:40 AM CDT Office Visit [facility] [address] [place] [phone] Uriel Mercedes MD [address] [place] [phone] Health Maintenance Due Date Last Done Comments [...] this topic Medical Devices Implanted Type Area Customer Data Technician Device Identifier Shelf Expiration Date Model / Serial / Lot Graft Bn Canc 30cc Crs 1-10mm [id number] - [id number] Implanted:Qty : 1 on 06/02/2023 by Uriel Mercedes MD at [facility] Bone/Tissu e/Biologic N/A: Spine Lumbar [employer] 05/18/2026 [id number] / [id number] / [id number] Graft Bn Can 30cc Crs 1-10mm [id number] - [id number] Implanted:Qty : 1 on 06/02/2023 by Uriel Mercedes MD at [facility] Bone/Tissu e/Biologic N/A: Spine Lumbar [employer] 05/14/2026 [id number] / [id number] / [id number] Graft Bn Can 30cc Crs 1-10mm [id number] - [id number] Implanted:Qty : 1 on 03/20/2024 by Uriel Mercedes MD at [facility] Bone/Tissu e/Biologic N/A: Spine Lumbar [employer] 09/06/2026 [id number] / [id number] / [id number] Imp Scr Medt 5.5/6.0mm Solera 7.5x55mm Ma [id number] - [id number] Implanted:Qty : 1 on 06/02/2023 by Uriel Mercedes MD at [facility] Metallic Hardware/A nchor N/A: Spine Lumbar [employer] [id number] 12/16/2030 [id number] / / [id number] Imp Scr Medt 5.5/6.0mm Solera 7.5x40mm Ma [id number] - [id number] Implanted:Qty : 1 on 06/02/2023 by Uriel Mercedes MD at [facility] Metallic Hardware/A nchor N/A: Spine Lumbar [employer] [id number] / / Screw Bn 90mm 9.5mm Ma Cnn Ns Cd Hzn Spne Lf Bs Cnmas Tc - [id number] Implanted:Qty : 2 on 06/02/2023 by Uriel Mercedes MD at [facility] Metallic Hardware/A nchor N/A: Spine Lumbar [employer] [id number] / / Imp Rupert Medt Solera Lined 5.7w166iz Chr [id number] - [id number] Implanted:Qty : 1 on 06/02/2023 by Uriel Mercedes MD at [facility] Metallic Hardware/A nchor N/A: Spine Lumbar [employer] [id number] / / Imp Scr Medt 5.5/6.0mm Solera 7.5x50mm Ma [id number] - [id number] Implanted:Qty : 1 on 06/02/2023 by Uriel Mercedes MD at [facility] Metallic Hardware/A nchor N/A: Spine Lumbar [employer] [id number] 05/09/2031 [id number] / / [id number] Imp Spnl Ifuse [place] 10.5 Mm X 90 Mm [id number] - [id number] Implanted:Qty : 1 on 06/02/2023 by Uriel Mercedes MD at [facility] Metallic Hardware/A nchor N/A: Spine Lumbar [employer] [id number] 03/22/2028 [id number] / [id number] / Imp Spnl Ifuse [place]rock [place] 10.5 Mm X 90 Mm [id number] - [id number] Implanted:Qty : 1 on 06/02/2023 by Uriel Mercedes MD at [facility] Metallic Hardware/A nchor N/A: Spine Lumbar [employer] [id number] 03/22/2028 [id number] / [id number] / Imp Scr Set Medt Solera Break Off 5.5mm Ti [id number] - [id number] Implanted:Qty : 12 on 06/02/2023 by Uriel Mercedes MD at [facility] Metallic Hardware/A nchor N/A: Spine Lumbar [employer] [id number] / / Imp Scr Medt 5.5/6.0mm Solera 6.5x50mm Ma [id number] - [id number] Implanted:Qty : 2 on 06/02/2023 by Uriel Mercedes MD at [facility] Metallic Hardware/A nchor N/A: Spine Lumbar [employer] [id number] / / Imp Scr Medt 5.5/6.0mm Solera 9.5x50mm Ma [id number] - [id number] Implanted:Qty : 1 on 06/02/2023 by Uriel Mercedes MD at [facility] Metallic Hardware/A nchor N/A: Spine Lumbar [employer] [id number] / / Imp Scr Medt 5.5/6.0mm Solera 7.5x45mm Ma [id number] - [id number] Implanted:Qty : 1 on 06/02/2023 by Uriel Mercedes MD at [facility] Metallic Hardware/A nchor N/A: Spine Lumbar [employer] [id number] / / Imp Scr Medt 5.5/6.0mm Solera 8.5x50mm Ma [id number] - [id number] Implanted:Qty : 1 on 06/02/2023 by Uriel Mercedes MD at [facility] Metallic Hardware/A nchor N/A: Spine Lumbar [employer] [id number] / / Imp Scr Medt 5.5/6.0mm Solera 6.5x45mm Ma [id number] - [id number] Implanted:Qty : 2 on 03/20/2024 by Uriel Mercedes MD at [facility] Metallic Hardware/A nchor N/A: Spine Lumbar [employer] 03/20/2024 [id number] / / Imp Scr Medt 5.5/6.0mm Solera 6.5x50mm Ma [id number] - [id number] Implanted:Qty : 2 on 03/20/2024 by Uriel Mercedes MD at [facility] Metallic Hardware/A nchor N/A: Spine Lumbar [employer] 03/20/2024 [id number] / / Imp Spacer Medt Capstone 8x22mm 0deg Ir [id number] - [id number] Implanted:Qty : 1 on 03/20/2024 by Uriel Mercedes MD at [facility] Metallic Hardware/A nchor N/A: Spine Lumbar [employer] [id number] 12/16/2029 [id number] / / [id number] Imp Scr Set Medt Solera Break Off 5.5mm Ti [id number] - [id number] Implanted:Qty : 8 on 03/20/2024 by Uriel Mercedes MD at [facility] Metallic Hardware/A nchor N/A: Spine Lumbar [employer] [id number] / / N/A Imp Rupert Medt Solera Lined 5.4v368eg Chr [id number] - [id number] Implanted:Qty : 1 on 03/20/2024 by Uriel Mercedes MD at [facility] Metallic Hardware/A nchor N/A: Spine Lumbar [employer] [id number] / / N/A Imp Connector Medt Horizon Closed 5.5mm [id number] - [id number] Implanted:Qty : 2 on 03/20/2024 by Uriel Mercedes MD at [facility] Metallic Hardware/A nchor N/A: Spine Lumbar [employer]-DANEK [id number] / / N/A Imp Scr Set [place] Medt 5.5 To 5.5mm [id number] - [id number] Implanted:Qty : 2 on 03/20/2024 by Uriel Mercedes MD at [facility] Metallic Hardware/A nchor N/A: Spine Lumbar [employer] [id number] / / Imp Scr [place] Legacy Breakoff Set 5.5mm Ti [id number] - [id number] Implanted:Qty : 2 on 03/20/2024 by Uriel Mercedes MD at [facility] Metallic Hardware/A nchor N/A: Spine Lumbar [employer]-DANEK [id number] / / N/A Graft Bone Infuse Bmp Lg [id number] - [id number] Implanted:Qty : 1 on 06/02/2023 by Uriel Mercedes MD at [facility] N/A: Spine Lumbar [employer] 11/30/2024 [id number] / / [id number] Capstone Control Ptc Spinal System Spacer [id number], 18 Deg, Peek/Ti/Ta Implanted:Qty : 4 on 06/02/2023 by Uriel Mercedes MD at [facility] N/A: Spine Lumbar [employer] 06/10/2030 [id number] / / [id number] Unid Exp Cocr Rupert 5.5mm 4+ Lv Implanted:Qty : 2 on 06/02/2023 by Uriel Mercedes MD at [facility] N/A: Spine Lumbar [employer] 07/31/2023 [id number] / / [id number] Graft Bone Infuse Bmp Sm [id number] - [id number] Implanted:Qty : 1 on 03/20/2024 by Uriel Mercedes MD at [facility] N/A: Spine Lumbar [employer] 04/01/2025 [id number] / / [id number] Explanted Type Area Customer Data Technician Device Identifier Shelf Expiration Date Model / Serial / Lot All Spinal Fusion Hardware Removed And Discarded As Indicated By Dr. Mercedes Consistent With The Revision Surgical Procedure Criteria Explanted:Qty: 1 on 06/02/2023 by Uriel Mercedes MD at [facility] N/A: Spine Lumbar Procedures Procedure Name Priority Date/Time Associated Diagnosis Comments XR EOS TOTAL BODY Routine 12/05/2024 9:1 8 AM ROOF MECHANIC S/P spinal fusion Herniated lumbar intervertebral disc [...] XR EOS Total Body (12/05/2024 9:18 AM ROOF MECHANIC) Anatomical Region Laterality Modality Spine, Lower Extremity Computed Radiography Impressions 12/05/2024 1:22 PM ROOF MECHANIC Impression: 1. Stable ACDF and posterior fusion at C5-C7 and posterior T12 the pelvis instrument fusion without evidence of hardware complication. Slightly increased opposing endplate degenerative changes at T11-T12. 2. No global sagittal or coronal imbalance. 3. Weight bearing axis as detailed above. EBONY WRIGHT MD Narrative 12/05/2024 1:22 PM ROOF MECHANIC Exam: Full body radiographs using EOS History: [...] No substantial global coronal imbalance. Sagittal Vertical [place] (A vertical line drawn from the center [...] No substantial global coronal imbalance. Sagittal Vertical [place] (A vertical line drawn from the center [...] BLOOD ORDERABLES Final Res ult [facility] [address] [place] [address], [facility] [email or web address]] * (ABNORMAL) Hemoglobin A1c (04/11/2023 12:57 PM [...] - BLOOD ORDERABLES Final Result [facility] [address] [facility], [address] [place] [address], [facility] [[email or web address]] [phone] from Last 3 Months or Most Recently Relevant to Health [place] [id number] [place] Advance Directives For more information, please contact: [phone] * Full Code (Latest Code Status on [...] continue PREVIOUSLY ORDERED code status Care Teams Strainer Tender Relationship Specialty Start Date End Date David Parisi MD [address] [place] [address] PCP - General 03/16/23 Uriel Mercedes MD [address] [place] [address] Assigned Musculoskeletal Provider 03/25/23
--- OUTSIDE RECORDS SUMMARY | 2024-12-19 10:16 | XMS_ITS | Clinical Summary ---
Author Organization [facility] Address [address] [place] [address] Care Team Providers Care Envelope Machine Operator Name Role Phone Unavailable Primary Care Provider [...] for each transition of care or referral. [facility] Allergies Active Allergy Reactions Criticality Noted Date [...] Recently Relevant to Health Maintenance Insurance MEDICARE [employer]
--- OUTSIDE RECORDS SUMMARY | 2024-12-19 10:16 | XMS_ITS | Encounter Summary ---
Author Organization [place] Address [address] [place] [address] Care Team Providers Care Ventilated Rib Fitter Name Role Phone David Parisi MD Primary Care Provider [phone] Uriel Mercedes MD Unavailable [phone] Reason for Visit * Diagnostic Imaging XR (Routine) - Pending Review Specialty Diagnoses / Procedures Referred By Contac t Referred To Contact Radiology. Diagnoses S/P spinal fusion Herniated lumbar intervertebral disc History of fusion of cervical spine Status post lumbar spinal fusion Procedures XR EOS Total Body Uriel Mercedes MD [address] [place] [address] Phone: tel: fax: Referral ID Status Reason Start Date Expiration Date V isits Requested Visits Authorized [id number] Pending Review 11/13/2024 11/13/2025 1 1 Encounter Details Date Type Department Care Team (Latest Contact Info) Description 12/05/2024 8:20 AM PROFESSIONAL DEVELOPMENT MANAGER Ancillary Procedure [facility] [place] [address] [facility] [address] [facility] [address] 1st [place] [phone] Uriel Mercedes MD [address] [place] [phone] S/P spinal fusion; Herniated lumbar intervertebral disc; [...] on file Legal Sex Female 5:08 AM PROFESSIONAL DEVELOPMENT MANAGER Gender Identity Not on file Sexual Orientation Not on file documented as of this encounter Plan of Treatment Upcoming Encounters Date Type Department Care Team (Late st Contact Info) Description 05/29/2025 9:40 AM CDT Ancillary Procedure [facility] [address] 1st [place] [phone] Uriel Mercedes MD [address] [place] [address] 05/29/2025 10:40 AM CDT Office Visit [facility] Orth[facility] [address] 4th [place] [phone] Uriel Mercedes MD [address] [place] [phone] documented as of this encounter Procedures Procedure Name Priority Date/Time Associated Diagnosis Comments XR EOS TOTAL BODY Routine 12/05/2024 9:1 8 AM PROFESSIONAL DEVELOPMENT MANAGER S/P spinal fusion Herniated lumbar intervertebral disc History of fusion of cervical spine Status post lumbar spinal fusion documented in this encounter Results * XR EOS Total Body (12/05/2024 9:18 AM PROFESSIONAL DEVELOPMENT MANAGER) Anatomical Region Laterality Modality Spine, Lower Extremity Computed Radiography Impressions 12/05/2024 1:22 PM PROFESSIONAL DEVELOPMENT MANAGER Impression: 1. Stable ACDF and posterior fusion at C5-C7 and posterior T12 the pelvis instrument fusion without evidence of hardware complication. Slightly increased opposing endplate degenerative changes at T11-T12. 2. No global sagittal or coronal imbalance. 3. Weight bearing axis as detailed above. EBONY WRIGHT MD Narrative 12/05/2024 1:22 PM PROFESSIONAL DEVELOPMENT MANAGER Exam: Full body radiographs using EOS History: [...] No substantial global coronal imbalance. Sagittal Vertical May (A vertical line drawn from the center [...] No substantial global coronal imbalance. Sagittal Vertical May (A vertical line drawn from the center [...] status documented in this encounter Care Teams Ventilated Rib Fitter Relationship Specialty Start Date End Date David Parisi MD [address] [place] [address] PCP - General 03/16/23 Uriel Mercedes MD [address] [place] [address] Assigned Musculoskeletal Provider 03/25/23 documented as of this encounter
--- OUTSIDE RECORDS SUMMARY | 2024-12-19 10:16 | XMS_ITS | Encounter Summary ---
Author Organization [place] Address [address] [place] [address] Care Team Providers Care Prosthetics Lab Technician Name Role Phone David Parisi MD Primary Care Provider Uriel Mercedes MD Unavailable [phone] Brandon Parikh MD Unavailable Reason for Visit * Reason Onset Date Comments Appointment 09/18/2024 Encounter Details Date Type Department Care Team (Late st Contact Info) Description 09/18/2024 Telephone [facility] [place] [address] [facility] [address] 4th [place] [address] Uriel Mercedes MD [address] [place], [place] [address] Appointment Social History Tobacco Use Types Packs/Day [...] on file 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 Gender Identity Not on file Sexual Orientation [...] we send this information to you in [facility] or would you prefer to receive a phone call?: Patient would prefer a phone call Okay to leave a detailed message?: Yes at Cell number on file: Telephone Information: DESIGNER documented in this encounter Plan of Treatment Upcoming Encounters Date Type Department Care Team (Late st Contact Info) Description 05/29/2025 9:40 AM CDT Ancillary Procedure [facility] Imaging [facility] [address] 1st [place] [phone] Uriel Mercedes MD [address] [place] [phone] 05/29/2025 10:40 AM CDT Office Visit [facility] [address] 4th [place] [phone] Uriel Mercedes MD [address] [place] [address] documented as of this encounter Visit Diagnoses Not on filedocumented in this encounter Care Teams Prosthetics Lab Technician Relationship Specialty Start Date End Date David Parisi MD [address] [place] [address] PCP - General 03/16/23 Uriel Mercedes MD [address] [place] [address] Assigned Musculoskeletal Provider 03/25/23 Brandon Parikh MD [address] [place], [place] [phone] Assigned Neuroscience Provider 04/29/23 11/23/24 documented as of this encounter
--- OUTSIDE RECORDS SUMMARY | 2024-12-19 10:16 | XMS_ITS | Encounter Summary ---
Author Organization [place] Address [facility] [place] [address] Care Team Providers Care Auto Heater Mechanic Name Role Phone David Parisi MD Primary Care Provider [phone] Uriel Mercedes MD Unavailable Brandon Parikh MD Unavailable Reason for Visit * Reason Onset Date Comments Prior Auth - Medication 04/27/2023 LamoTRIg ine (LAMICTAL) 200 MG ER tablet - APPROVED Encounter Details Date Type Department Care Team (Late st Contact Info) Description 04/27/[address] 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 Imaging Center CT Clinic [place] [address] [facility] [address] 1st [place] [phone] rUiel Mercedes MD [address] [address] 05/29/2025 10:40 AM CDT Office Visit [facility] Orthopedic [facility] [place] [id number] [facility] [address] 4th [place] [phone] Uriel Mercedes MD [address] [place] [phone] documented as of this encounter Visit Diagnoses Not on filedocumented in this encounter Care Teams Auto Heater Mechanic Relationship Specialty Start Date End Date David Parisi MD [address] [place] [address] PCP - General 03/16/23 Uriel Mercedes MD [address] [place] [address] Assigned Musculoskeletal Provider 03/25/23 Brandon Parikh MD [address] [place] [address] Assigned Neuroscience Provider 04/29/23 11/23/24 documented as of this encounter
--- OUTSIDE RECORDS SUMMARY | 2024-12-19 10:16 | XMS_ITS | Clinical Summary ---
Author Organization [facility] Address [address] [place] [address] Care Team Providers Care Dust Control Engineer Name Role Phone Bernadette Cabrera MD Primary Care Provider [phone] [facility], [place] Unavailable Allergies Active Allergy Reactions Criticality Noted [...] meal. 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 No fever hasn't been able to eat much trying to drink lots of fluid ) 12/13/2024 Telephone [facility] [address] [place] [address] Bernadette Cabrera MD Results; Follow Up 12/13/2024 Travel 12/12/2024 Nurse Triage [facility] [address] [place] [address] Bernadette Cabrera MD Questions (question ) 12/03/2024 Telephone [facility] [address] [address] Padmini Sena MD Lab 12/02/2024 Telephone [facility] [address] [place] [address] Bernadette Cabrera MD Follow Up (Fax) 12/02/2024 Telephone [facility] [address] [place] [address] Bernadette Cabrera MD Results 11/28/2024 9:50 AM JUNIOR SOFTWARE ENGINEER Office Visit [facility] [address] [place] [address] Bernadette Cabrera MD Lab; Diabetes 11/28/2024 Travel 11/20/[address] [address] Padmini Sena MD Questions (Infection ) 11/20/2024 Travel 11/19/2024 9:00 AM JUNIOR SOFTWARE ENGINEER Phone Office Visit [address] [address] Padmini Sena MD 11/15/2024 10:30 AM JUNIOR SOFTWARE ENGINEER Orders Only [address] [address] Lab, [place] Lab 11/15/2024 Travel 11/06/2024 Refill [facility] [address] [place] [address] Bernadette Cabrera MD Refill Request (Meclizine) 11/02/2024 Refill [facility] [address] [place] [address] Bernadette Cabrera MD Refill Request (Duloxetine, Zolpidem) 10/30/[address] [address] Padmini Sena MD Lab (Infection) 10/28/2024 9:00 AM JUNIOR SOFTWARE ENGINEER Ancillary Procedure [facility] [address] [place] [address] 10/28/2024 Travel 10/15/2024 10:05 AM JUNIOR SOFTWARE ENGINEER Office Visit [facility] [address] [place] [address] Bernadette Cabrera MD Follow Up 10/15/2024 Orders Only [facility] Scanner 1 scan: (1-Ord) [facility], MULTIPLE LABS, 10/15/2024 10/15/2024 Telephone [facility] [address] [place] [facility] [place] [address] Bernadette Cabrera MD Medication Management (Antibiotics/) 10/15/2024 Travel 10/14/[address] [address] Padmini Sena MD Lab (Orders request) 10/11/2024 Telephone [facility] [address] [place] [address] Bernadette Cabrera MD Questions (Medication ) 10/10/2024 10:00 AM JUNIOR SOFTWARE ENGINEER Phone Office Visit [address] [address] Padmini Sena MD Follow Up; Infection (Left Knee post-op); Phone Visit 10/10/2024 Refill [facility] [address] [place] [address] Bernadette Cabrera MD Refill Request (Furosemide) 10/10/2024 Travel 10/08/2024 Orders Only [facility] Scanner 1 scan: (1-Ord) [facility], MULTIPLE LAB RESULTS, 10/08/2024 10/07/2024 10:45 AM JUNIOR SOFTWARE ENGINEER Office Visit [facility] [address] [place] [address] Bernadette Cabrera MD Follow Up; Medication Management (Lasix 40 mg in the morning and 20 mg in the afternoon) 10/07/2024 Travel 09/30/2024 Telephone [facility] [address] [place] [address] Bernadette Cabrera MD Questions (lisinopriL (PRINIVIL; ZESTRIL) 10 mg table) 09/27/2024 9:30 AM JUNIOR SOFTWARE ENGINEER Orders Only [facility] [address] [place] [address] Lab, [place] Lab 09/27/2024 Telephone [facility] [address] [facility] [address] Bernadette Cabrera MD Medication Management 09/27/2024 Telephone [facility] [address] [facility] [address] Bernadette Cabrera MD Questions (discharge from half-way) 09/27/2024 Travel 09/24/2024 Orders Only [facility] Scanner 1 scan: (1-Ord) [facility], CBC W/ DIFFERENTIAL, 09/24/2024 09/24/2024 Telephone [facility] [address] [place] [address] Bernadette Cabrera MD Questions (Infection related to [...] on file Legal Sex Female 5:31 AM JUNIOR SOFTWARE ENGINEER Gender Identity Not on file Sexual Orientation Not on file Occupation Industry Job Start Date Job End Date DISABLED Not on file Not on file Not on file Obstetrics History Last Filed Vital Signs Vital Sign Reading Time Taken Comments Blood Pressure 126/74 12/13/2024 8:50 AM CDT Pulse 98 12/13/2024 8:50 AM CDT Temperature 36.7 C (98 F) 09/04/2024 3:13 PM JUNIOR SOFTWARE ENGINEER Respiratory Rate 16 02/20/2023 9:36 AM CDT Oxygen Saturation 97% 12/13/2024 8:50 AM CDT Inhaled Oxygen Concentration - - Weight 79.2 kg (174 lb 11.2 oz) 12/13/2024 8:50 AM CDT Height 153.4 cm (5' 0.4) 09/02/2024 8:24 AM JUNIOR SOFTWARE ENGINEER Body Mass Index 33.67 09/02/2024 8:24 AM JUNIOR SOFTWARE ENGINEER Plan of Treatment Upcoming Encounters Date Type Department Care Team (Late st Contact Info) Description 12/30/2024 8:15 AM CDT Ancillary Procedure [facility] [address] [place] [address] 01/16/2025 9:00 AM CDT Orders Only [facility] [address] [place] [address] [place], [place] 01/21/2025 9:00 AM CDT Phone Office Visit [facility] [address] [address] Padmini Sena MD [address] [address] 03/06/2025 9:00 AM CDT Office Visit [facility] [address] [place] [address] Bernadette Cabrera MD [address] [facility] [address] Health Maintenance Due Date Last Done Comments Mammogram for age 45-75 02/26/2025 02/27/20, 11/08/2022, 06/29/2021, Additional history exists Pap test for age 21-65 06/09/2025 , 06/09/2020, 03/30/2017, Additional history exists BMI (ht and wt on same day) for age 18+ 09/02/2025 09/02/2024, 10/31/2022, 12/11/2020, Additional history exists Depression screening for age 12+ 12/02/2025 12/02/2024, 12/02/2024, 11/28/2024, Additional history exists Fecal testing sDNA-FIT (Gary guard) for age 45-75 08/20/2026 08/20/2023, 07/25/2020 [...] Care Management to collaborate with Home Care Press Tender and / or patient to monitor for home care discharge plan, adherence to plan of care and progression towards goals. Patient to transition from Home Care to [facility] Care Management program when appropriate. Medical Devices Implanted Type Area Travel Nurse Device Identifier Shelf Expiration Date Model / Serial / Lot [id number] Matrix 1cc Dbx Putty Dbm [[id number]] Implanted:Qty: 1 on 04/26/2016 by Buck Mata MD at [facility] Explanted:at [facility] (Quantity not on file) N/A: Spine Musculoskeletal Transplant 12/06/2017 [id number]# / [id number] / [id number] 30cc Mtf Crushed Canclls Pouch [[id number]] Implanted:Qty: 1 on 04/26/2016 by Buck Mata MD at [facility] Explanted:at [facility] (Quantity not on file) N/A: Spine Musculoskeletal Transplant 01/01/2019 [id number]# / [id number] / Spacer Lmbr [id number] 0deg Avsunilif - [id number] Implanted:Qty: 1 on 04/26/2016 by Buck Mata MD at [facility] N/A: Spine Vivek Spine [id number]# / / Screw Lmbr Post 6.5x40mm Xia3 Va - [id number] Implanted:Qty: 1 on 04/26/2016 by Bukc Mata MD at [facility] N/A: Spine [place] Spine [id number]# / / Screw Lmbr Post 6.5x45mm Xia3 Va - [id number] Implanted:Qty: 3 on 04/26/2016 by Buck Mata MD at [facility] N/A: Spine [place] Spine [id number]# / / Cnnctr Lmbr 35-44mm Marilee Iii Va - [id number] Implanted:Qty: 1 on 04/26/2016 by Buck Mata MD at [facility] N/A: Spine Vivek Spine [id number]# / / Set Screw Lmbr Xia3 - [id number] Implanted:Qty: 4 on 04/26/2016 by Buck Mata MD at [facility] N/A: Spine [place] Spine [id number]# / / Radhika Lmbr 40mmx6 Xia3 Cvd Titnm - [id number] Implanted:Qty: 1 on 04/26/2016 by Buck Mata MD at [facility] N/A: Spine [place] Spine [id number]# / / Radhika Lmbr 45mmx6 Xia3 Cvd Titnm - [id number] Implanted:Qty: 1 on 04/26/2016 by Buck Mata MD at [facility] N/A: Spine [place] Spine [id number]# / / [id number] one Matrix 3cc Jose Dbf Putty Dbm Implanted:Qty: 1 on 06/18/2019 by Buck Mata MD at [facility] Explanted:at [facility] (Quantity not on file) N/A: Spine Medtronic Spine/Ortho 01/27/2021 [id number]# / [id number] / [id number] one 1-4mm 30cc Medtronic Chips Canclls Freeze Dried Implanted:Qty: 1 on 06/18/2019 by Buck Mata MD at [facility] Explanted:at [facility] (Quantity not on file) N/A: Spine Medtronic Spine/Ortho 10/18/2023 [id number]# / [id number] / Spacer Lmbr [id number] 0deg Avsunilif - [id number] Implanted:Qty: 1 on 06/18/2019 by Buck Mata MD at [facility] N/A: Spine Vivek Spine [id number]# / / Screw Lmbr Post 6.5x45mm Xia3 Va - [id number] Implanted:Qty: 2 on 06/18/2019 by Buck Mata MD at [facility] N/A: Spine [place] Spine [id number]# / / Radhika Lmbr 80mmx6 Xia3 Cvd Titnm - [id number] Implanted:Qty: 2 on 06/18/2019 by Buck Mata MD at [facility] N/A: Spine [place] Spine [id number]# / / Set Screw Lmbr Xia3 - [id number] Implanted:Qty: 6 on 06/18/2019 by Buck Mata MD at [facility] N/A: Spine [place] Spine [id number]# / / [id number] one 1-4mm 30cc Medtronic Chips Canclls Freeze Dried Implanted:Qty: 1 on 01/14/2022 by Buck Mata MD at [facility] Explanted:at [facility] (Quantity not on file) N/A: Spine Medtronic Spine/Ortho 02/25/2026 [id number] / [id number] / [id number] one Matrix 3cc Jose Dbf Putty Dbm Implanted:Qty: 1 on 01/14/2022 by Buck Mata MD at [facility] Explanted:at [facility] (Quantity not on file) N/A: Spine Medtronic Spine/Ortho 12/17/2023 [id number] / [id number] / Set Screw Lmbr Xia3 - [id number] Implanted:Qty: 8 on 01/14/2022 by Buck Mata MD at [facility] N/A: Spine [place] Spine [id number] / / Radhika Lmbr [id number] Xia3 Cvd Titnm - [id number] Implanted:Qty: 2 on 01/14/2022 by Buck Mata MD at [facility] N/A: Spine Vivek Spine [id number] / / Screw Lmbr Post 6.5x50mm Xia3va - [id number] Implanted:Qty: 2 on 01/14/2022 by Buck Mata MD at [facility] N/A: Spine [place] Spine [id number] / / Spacer Lmbr [id number] 0 Deg Avs Unilif - [id number] Implanted:Qty: 1 on 01/14/2022 by Buck Mata MD at [facility] N/A: Spine Vivek Spine [id number] / / Screw Lmbr Post 8.5x50mm Ilios Va - [id number] Implanted:Qty: 1 on 02/22/2022 by Buck Mata MD at [facility] N/A: Spine Vivek Spine [id number] / / Screw Lmbr Post 8.5x55mm Ilios Va - [id number] Implanted:Qty: 1 on 02/22/2022 by Buck Mata MD at [facility] N/A: Spine Vivek Spine [id number] / / Cnnctr Lmbr 53-73mm Marilee Iii Va - [id number] Implanted:Qty: 1 on 02/22/2022 by Buck Mata MD at [facility] N/A: Spine Vivek Spine [id number] / / Set Screw Lmbr Xia3 - [id number] Implanted:Qty: 8 on 02/22/2022 by Buck Mata MD at [facility] N/A: Spine Vivek Spine [id number] / / Explanted Type Area Travel Nurse Device Identifier Shelf Expiration Date Model / Serial / Lot Explant Explanted:Qty: 1 on 06/18/2019 at [facility] N/A: Spine Description:RADHIKA X2 CROSSLINK X1 Vivek Marilee 3 Explanted:Qty: 1 on 02/22/2022 by Buck Mata MD at [facility] Description:2 screws/ 8 set screws Procedures Procedure [...] medical illness C-PEPTIDE Routine 11/28/2024 1:00 PM JUNIOR SOFTWARE ENGINEER 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) CYCLIC CITRULLINE PEPTIDE Routine 11/28/2024 11:03 AM JUNIOR SOFTWARE ENGINEER BASIC METABOLIC PANEL Routine 11/28/2024 11:03 AM JUNIOR SOFTWARE ENGINEER HTN (hypertension) CBC W PLT NO DIFF Routine 11/28/2024 11: 03 AM JUNIOR SOFTWARE ENGINEER Anemia, unspecified type HEMOGLOBIN A1C MONITORING (POCT) Routine 11/28/2024 9:37 AM JUNIOR SOFTWARE ENGINEER 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) LIPID PANEL Routine 11/28/2024 9:36 AM JUNIOR SOFTWARE ENGINEER Hyperlipidemia, unspecified hyperlipidemia type C-REACTIVE PROTEIN Routine 11/15/2024 10 :32 AM JUNIOR SOFTWARE ENGINEER Infection associated with internal left knee prosthesis, initial encounter CBC WITH AUTO DIFFERENTIAL Routine 11/15/2024 10:32 AM JUNIOR SOFTWARE ENGINEER Infection associated with internal left knee prosthesis, initial encounter COMP METABOLIC PANEL Routine 11/15/2024 10:32 AM JUNIOR SOFTWARE ENGINEER Infection associated with internal left knee prosthesis, initial encounter ECHO TTE COMPLETE WO CONTRAST Routine 10/28/2024 9:41 AM JUNIOR SOFTWARE ENGINEER Bilateral lower extremity edema HTN (hypertension) SCAN-LABORATORY REPORT 10/15/2024 12:00 AM JUNIOR SOFTWARE ENGINEER SCAN-LABORATORY REPORT 10/08/2024 12:00 AM JUNIOR SOFTWARE ENGINEER BASIC METABOLIC PANEL Routine 09/27/2024 9:23 AM JUNIOR SOFTWARE ENGINEER Hyperkalemia SCAN-LABORATORY REPORT 09/24/2024 12:00 AM JUNIOR SOFTWARE ENGINEER XR MAMMO MACHO BILAT SCREEN Routine 02/27/2024 2:35 PM CDT Visit for screening mammogram SDNA-FIT EXTERNAL (COLOGUARD) Routine 08/20/2023 8:14 PM JUNIOR SOFTWARE ENGINEER Screening for colon cancer LC HIV-1/O/2, 4TH GENERATION Routine 05/11/2023 11:25 AM CDT Screening for HIV (human immunodeficiency virus) LC HCV ANTIBODY RFX TO QUANT PCR Routine 05/11/2023 11:25 AM CDT Need for hepatitis C screening test EXECUTIVE COORDINATOR THIN PREP PAP SCREEN IMAGED Routine 06/09/2020 [...] COVID/FLU/RSV PANEL (12/13/2024 9:36 AM CDT) Pathologist [facility] COVID 19 SRAVANTHI MOLECULAR Negative Negative 12/13/2024 4:17 PM CDT [facility] Comment:All PCR tests are sow bject to false negative result due to variability in viral load and collection technique. A negative result does not rule out a SARS-CoV-2 infection. Clinical correlation required. INFLUENZA A PCR Negative 4:17 PM CDT [facility] INFLUENZA B PCR Negative 4:17 PM CDT [facility] Respiratory Syncytial Virus Negative 12/13/2024 4:17 PM CDT [facility] Swab NASOPHARYNGEAL SWAB / Unknown Non-Blood / Unknown 12/13/2024 9:36 AM CDT 12/13/2024 9:36 AM CDT Bernadette Cabrera MD MICROBIOLOGY Final Resu lt [facility] [address] [place] [address], * (ABNORMAL) CBC WITH AUTO DIFFERENTIAL (12/13/2024 9:36 AM CDT) Pathologist [facility] WHITE BLOOD COUNT 8.6 4.5 - 11.0 thou/cu mm 12/13/2024 12:06 PM T [facility] RED BLOOD COUNT 4.46 4.00 - 5.20 mil/cu mm 12/13/2024 12:06 PM T [facility] HEMOGLOBIN 12.5 12.0 - 16.0 g/dL 12/13/2024 12:06 PM T [facility] HEMATOCRIT 40.2 33.0 - 51.0 % 12/13/2024 12:06 PM [facility] MCV 90 80 - 100 fL 12/13/2024 12:06 PM [facility] MCH 28.0 26.0 - 34.0 pg 12/13/2024 12:06 PM [facility] MCHC 31.1(L) 32.0 - 36.0 g/dL 12/13/2024 12:06 PM [facility] RDW 15.3 11.5 - 15.5 % 12/13/2024 12:06 PM [facility] PLATELET COUNT 307 140 - 440 thou/cu mm 12/13/2024 12:06 PM [facility] MPV 12.4(H) 6.5 - 11.0 fL 12/13/2024 12:06 PM [facility] % NEUT 68.7 % 12/13/2024 12:06 PM [facility] % LYMPH 17.8 % 12/13/2024 12:06 PM [facility] % MONO 7.6 % 12/13/2024 12:06 PM [facility] % EOS 5.6 % 12/13/2024 12:06 PM [facility] % BASO 0.3 % 12/13/2024 12:06 PM [facility] ABSOLUTE NEUTROPHILS 5.9 1.7 - 7.0 thou/cu mm 12/13/2024 12:06 PM [facility] ABSOLUTE LYMPHOCYTES 1.5 0.9 - 2.9 thou/cu mm 12/13/2024 12:06 PM [facility] ABSOLUTE MONOCYTES 0.7 <0.9 thou/cu mm 12/13/2024 12:06 PM [facility] ABSOLUTE EOSINOPHILS 0.5(H) <0.5 thou/cu mm 12/13/2024 12:06 PM [facility] ABSOLUTE BASOPHILS 0.0 <0.3 thou/cu mm 12/13/2024 12:06 PM [facility] Blood BLOOD SPECIMEN / Unknown [facility] / Unknown 12/13/2024 9:36 AM CDT 12/13/2024 9:36 AM CDT us Bernadette Cabrera MD HEMATOLOGY Final Resu lt [facility] [address] [place], [place] [id number] * (ABNORMAL) COMP METABOLIC PANEL (12/13/2024 9:36 AM CDT) Only the most recent of2 resultswithin the time period is included. SODIUM 146(H) 136 - 145 mmol/L 12/13/2024 12:17 PM [facility] POTASSIUM 4.0 3.5 - 5.1 mmol/L 12/13/2024 12:17 PM [facility] CHLORIDE 106 98 - 107 mmol/L 12/13/2024 12:17 PM [facility] CO2,TOTAL 29 22 - 29 mmol/L 12/13/2024 12:17 PM [facility] ANION GAP 11 5 - 18 12/13/2024 12:17 PM [facility] GLUCOSE 144(H) 70 - 99 mg/dL 12/13/2024 12:17 PM [facility] CALCIUM 10.0 8.8 - 10.4 mg/dL 12/13/2024 12:17 PM [facility] Comment: Reference ranges for this test were updated on 08/06/2024 to reflect our healthy population more accurately. Reference range changes are not retroactively applied to results, but previous results using the same methodology can be interpreted in the context of the new reference range. BUN 14 6 - 20 mg/dL 12/13/2024 12:17 PM [facility] CREATININE 0.92(H) 0.50 - 0.90 mg/dL 12/13/2024 12:17 PM [facility] BUN/CREAT RATIO 15 10 - 20 12:17 PM [facility] eGFR 74(L) >90 mL/min/1. 73m2 12/13/2024 12:17 PM [facility] Comment:As of 2021, eG FR is calculated by the CKD-EPI creatinine equation without race adjustment. eGFR can be influenced by muscle mass, exercise, and diet. The reported eGFR is an estimation only and is only applicable if the renal function is stable. ALBUMIN 4.0 4.0 - 4.9 g/dL 12/13/2024 12:17 PM [facility] PROTEIN,TOTAL 7.5 6.0 - 8.0 g/dL 12/13/2024 12:17 PM [facility] BILIRUBIN,TOTAL 0.2 0.0 - 1.2 mg/dL 12/13/2024 12:17 PM [facility] ALK PHOSPHATASE 151(H) 35 - 104 IU/L 12/13/2024 12:17 PM [facility] ALT (SGPT) 11 10 - 35 IU/L 12/13/2024 12:17 PM [facility] AST (SGOT) 19 10 - 35 IU/L 12/13/2024 12:17 PM [facility] Blood BLOOD SPECIMEN / Unknown [facility] / Unknown 12/13/2024 9:36 AM CDT 12/13/2024 9:36 AM CDT Bernadette Cabrera MD CHEMISTRY Final Resu lt [facility] [address] [place] [address] * (ABNORMAL) C-PEPTIDE (11/28/2024 1:00 PM JUNIOR SOFTWARE ENGINEER) C-PEPTIDE 0.19(L) 0.80 - 3.85 ng/mL [facility] Blood BLOOD SPECIMEN / Unknown 11/28/2024 1:00 PM JUNIOR SOFTWARE ENGINEER 11/28/2024 1:00 PM JUNIOR SOFTWARE ENGINEER us Bernadette Cabrera MD SEND OUTS Final Resu lt [facility] [address] [address], [facility] [address] [place] [address] * CYCLIC CITRULLINE PEPTIDE (11/28/2024 11:03 AM JUNIOR SOFTWARE ENGINEER) [facility] CYCLIC CITRULLINATED PEPTIDE (CCP) AB (IGG) <16 UNITS [facility] Comment: Reference Range Negative: <20 Weak Positive: 20-39 Moderate Positive: 40-59 Strong Positive: >59 11/28/2024 11:0 3 AM JUNIOR SOFTWARE ENGINEER 11/28/2024 11:03 AM JUNIOR SOFTWARE ENGINEER us Bernadette Cabrera MD SEND OUTS Final Resu lt [facility] [address] [place] [address], [place] [phone] [facility] [address] [place] [address] * (ABNORMAL) CBC W PLT NO DIFF (11/28/2024 11:03 AM JUNIOR SOFTWARE ENGINEER) [facility] WHITE BLOOD CELL COUNT 8.5 3.8 - [...] BLOOD SPECIMEN / Unknown 11/28/2024 11:03 AM JUNIOR SOFTWARE ENGINEER 11/28/2024 11:03 AM JUNIOR SOFTWARE ENGINEER Bernadette Cabrera MD HEMATOLOGY Final Resu lt [employer] [address] [place] [address], [facility] [address] [place] [address] * BASIC METABOLIC PANEL (11/28/2024 11:03 AM JUNIOR SOFTWARE ENGINEER) Only the most recent of2 resultswithin the time period is included. GLUCOSE 81 65 - 99 mg/dL [facility] [place] Comment: Fasting reference interval UREA [...] BLOOD SPECIMEN / Unknown 11/28/2024 11:03 AM JUNIOR SOFTWARE ENGINEER 11/28/2024 11:03 AM JUNIOR SOFTWARE ENGINEER Bernadette Cabrera MD CHEMISTRY Final Resu lt [facility] [address] [place] [address], [place] [phone] [facility] [address] [place] [address] * (ABNORMAL) POCT Hemoglobin A1C Monitoring (11/28/2024 9:37 AM JUNIOR SOFTWARE ENGINEER) [facility] POC HEMOGLOBIN A1C 7.0(H) <6.0 % OF TOTAL HGB [facility] Comment: Any point of care results exhibiting inconsistency with the patient's clinical status should be repeated using a different testing method. Blood BLOOD SPECIMEN / Unknown 11/28/2024 9:37 AM JUNIOR SOFTWARE ENGINEER 11/28/2024 9:37 AM JUNIOR SOFTWARE ENGINEER Bernadette Cabrera MD CHEMISTRY Final Resu lt [facility] [address] [place] [address], [place] [phone] [facility] [address] [place] [address] * LIPID PANEL (11/28/2024 9:36 AM JUNIOR SOFTWARE ENGINEER) [facility] CHOLESTEROL, TOTAL 152 <200 mg/dL [facility] [...] LDL-C. Jamal TRAN et al. JOHNNY. 2013;310(19): 6044-9856 (http://education.[employer]/faq/IDL188) CHOL/HDLC RATIO 2.8 <5.0 (calc) [facility] NON HDL CHOLESTEROL 97 <130 mg/dL (calc) [facility] Comment: For patients with diabetes plus 1 major ASCVD risk factor, treating to a non-HDL-C goal of <100 mg/dL (LDL-C of <70 mg/dL) is considered a therapeutic option. Blood BLOOD SPECIMEN / Unknown 11/28/2024 9:36 AM JUNIOR SOFTWARE ENGINEER 11/28/2024 9:36 AM JUNIOR SOFTWARE ENGINEER Bernadette Cabrera MD CHEMISTRY Final Resu lt Performing Organization Address City/[facility]/ZIP Co de Phone Number [facility] [address] [place] [address], [place] [phone] [facility] [address] [place] [address] * (ABNORMAL) C-REACTIVE PROTEIN (11/15/2024 10:32 AM JUNIOR SOFTWARE ENGINEER) Pathologist [facility] C-REACTIVE PROTEIN 29.1(H) <8.0 mg/L [facility] Blood BLOOD SPECIMEN / Unknown 11/15/2024 10:32 AM JUNIOR SOFTWARE ENGINEER 11/15/2024 10:32 AM JUNIOR SOFTWARE ENGINEER Padmini Sena MD CHEMISTRY Final Re sult [facility] [address] [facility] [place] [address], [place] [phone] [facility] [address] [place] [address] * (ABNORMAL) CBC AND DIFFERENTIAL (11/15/2024 10:32 AM JUNIOR SOFTWARE ENGINEER) Pathologist [facility] WHITE BLOOD CELL COUNT 7.7 3.8 - [...] BLOOD SPECIMEN / Unknown 11/15/2024 10:32 AM JUNIOR SOFTWARE ENGINEER 11/15/2024 10:32 AM JUNIOR SOFTWARE ENGINEER us Padmini Sena MD HEMATOLOGY Final Re sult [facility] [address] [place] [address], [facility] [address] [place] [address] * ECHO TTE COMPLETE WO CONTRAST (10/28/2024 9:41 AM JUNIOR SOFTWARE ENGINEER) AORTIC VALVE MEAN PG 5 mmHg EJECTION FRACTION 65 % LVEDD 4.3 cm Anatomical Region Laterality Modality Ultrasound 10/28/2024 9:04 AM JUNIOR SOFTWARE ENGINEER Narrative 10/28/2024 10:23 AM JUNIOR SOFTWARE ENGINEER ECHOCARDIOGRAM JENNIFER GALEANO : 1970 53 years Study Date: 10/28/2024 9:04:42 AM Gender: F BP: 160/70 mmHg Height: 152.00 cm BSA: 1.81 m Weight: 85.00 kg Tech: [facility] Referring MD: BERNADETTE CABRERA Site: [facility] Reading Location: Mobile OP Patient Location: Outpatient. [...] . This study was interpreted by an [facility] accredited facility. Final Procedure Note Carolyn Dias, [facility] - 10/28/2024 ECHOCARDIOGRAM JENNIFER GALEANO : 1970 53 years Study Date: 10/28/2024 9:04:42 AM Gender: F BP: 160/70 mmHg Height: 152.00 cm BSA: 1.81 m Weight: 85.00 kg Tech: [facility] Referring MD: BERNADETET CABRERA Site: [facility] Reading Location: Mobile OP Patient Location: Outpatient. [...] lt * SCAN-LABORATORY REPORT (10/15/2024 12:00 AM JUNIOR SOFTWARE ENGINEER) Only the most recent of3 resultswithin the [...] care provider. XR MAMMO MACHO BILAT SCREEN [[id number]] CLINICAL HISTORY: This is an asymptomatic 53 y.o. patient. INDICATION FOR EXAM: Mammogram Screening. TECHNIQUE: CC & MLO views were obtained. This study was evaluated with the assistance of Computer-Aided Detection. Breast Tomosynthesis was used in interpretation. COMPARISON FILM: Yes 11/08/22 [facility] 06/29/21 [facility] FINDINGS: The breasts are extremely dense, which lowers the sensitivity of mammography. There are no dominant masses, suspicious micro calcifications or areas of architectural distortion. 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 A negative Cologuard [...] Jason et al, N Engl J Med 2014;370(14):1872-4624) The normal value (reference range) for this assay is negative. COLOGUARD RE-SCREENING RECOMMENDATION: Periodic colorectal cancer screening is an important part of preventive healthcare for asymptomatic individuals at average risk for colorectal cancer. Following a negative Cologuard result, the [place] Cancer Society and U.S. Multi-Society Task Force screening guidelines recommend a Cologuard re-screening interval of 3 years. References: [place] Cancer Society Guideline for Colorectal Cancer Screening: https://www.cancer.org/cancer/wnnau-qpoagp-anyuju/wlwikkidh-cxlrtxtvc-swmjcof/ac s-rec ommendations.html.; Hood MALDONADO, Renan DAMON, Paty ZAMBRANO, Colorectal Cancer Screening: Recommendations for Physicians and Patients from the U.S. Multi-Society Task Force on Colorectal Cancer Screening , Am J Gastroenterology 2017; 112:8718-2480. TEST DESCRIPTION: Composite algorithmic analysis of stool [...] Yates. et al, N Engl J Med 2014;370(14):5961-7265.) Cologuard may produce a false negative or false positive result (no colorectal cancer or precancerous polyp present at colonoscopy follow up). A negative Cologuard test result does not guarantee the absence of CRC or advanced adenoma (pre-cancer). The current Cologuard screening interval is every 3 years. ([place] Cancer Society and U.S. Multi-Society Task Force). Cologuard performance data in a 10,000 patient pivotal study using colonoscopy as the reference method can be accessed at the following location: www.groopify/results. Additional description of the Cologuard test process, warnings and precautions can be found at www.cologuard.com. Stool specimen (specimen) (Rectum) 08/20/2023 8:14 PM JUNIOR SOFTWARE ENGINEER 08/22/2023 5:49 PM JUNIOR SOFTWARE ENGINEER Bernadette Cabrera MD URINE Final Resu lt Performing Organization Address City/[facility]/ZIP Co de Phone Number [facility] (CLIA #:[id number]) [address] [place] [address], * LC HCV ANTIBODY RFX TO QUANT PCR (05/11/2023 11:25 AM CDT) HCV Ab Non Reactive Non Reactive 05/14/2023 8:36 AM CDT [facility] ([facility]) Blood BLOOD SPECIMEN / Unknown Venipuncture / Unknown 05/11/2023 11:25 AM CDT 05/11/2023 11:26 AM CDT Narrative [facility] ([facility]) - 05/14/2023 8:36 AM CDT Performed at: [address] [place] [id number] Manager Med Surg: Klaus Rojas MD, Phone: [phone] Bernadette Cabrera MD LABORATORY Final Resu lt Performing Organization Address City/[facility]/ZIP Co de Phone Number [facility] ([facility]) [address] [place] [address] * LC HIV-1/O/2, 4TH GENERATION (05/11/2023 11:25 AM CDT) HIV Scr 4th Gen Non Reactive Non Reactive 05/14/2023 8:36 AM CDT [facility] ([facility]) Comment: HIV Negative HIV-1/HIV-2 antibodies and HIV-1 p24 antigen were NOT detected. There is no laboratory evidence of HIV infection. Blood BLOOD SPECIMEN / Unknown Venipuncture / Unknown 05/11/2023 11:25 AM CDT 05/11/2023 11:26 AM CDT Narrative [facility] - 05/14/2023 8:36 AM CDT Performed at: [address] [place] [id number] [place], [place] [id number] Manager Med Surg: Klaus Rojas MD, Phone: [phone] us Bernadette Cabrera MD LABORATORY Final Resu lt [facility] ([facility]) [facility] [place] [id number], * EXECUTIVE COORDINATOR THIN PREP PAP SCREEN IMAGED (06/09/2020 9:35 AM CDT) Case Report Gynecologic Cytology Report Case: [id number] Authorizing Provider: Bernadette Cabrera MD Collected: 06/09/2020 0935 Ordering Location: [facility] Received: 06/09/2020 1124 Clinic First Screen: Nicole Mak Specimen: EXECUTIVE COORDINATOR ThinPrep Vial Screening, Cervical 06/18/2020 8:23 AM CDT [facility] ENTRAL LABORAT[facility] INTERPRETATION/ RESULT NEGATIVE FOR INTRAEPITHELIAL LESION OR MALIGNANCY (NIL) (none) 06/18/2020 8:23 AM CDT [facility] ENTRAL LABORATORY NISM(S) 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 06/18/2020 8:23 AM CDT [facility] ENTRAL LABORATORY SPECIMEN ADEQUACY Satisfactory for evaluation No endocervical component seen 06/18/2020 8:23 AM CDT [facility] ENTRAL LABORATORY HPV REQUEST HPV and PAP 06/18/2020 8:23 AM CDT [facility] ENTRAL LABORATORY Date of LMP Years ago due to ablation 06/18/2020 8:23 AM CDT [facility] Last Pap Date 03/30/17 06/18/2020 8:23 AM CDT [facility] Last Pap Result NIL 0 8:23 AM CDT [facility] EN[facility] Abnormal Pap or Fowler Bx in last 5 years No 06/18/2020 8:23 AM CDT [facility] Menstrual Status Postmenopausal 06/18/2020 8:23 AM CDT [facility] Fowler Bx Done Today No 06/18/2020 8:23 AM CDT [facility] Additional Information None given 06/18/2020 8:23 AM CDT [facility] Comment: Cytology is screened at [facility] - [address], [place] [address] and [facility] - [address], [place] [address] and [facility] - [address] [place] [address] Interpreted at [facility] - [address], [place] [address] Automated Review Successful 06/18/2020 8:23 AM CDT [facility] Comment:Specimen processed s uccessfully by automated beam saw operator device, ThinPrep Imaging System, [employer] ANCILLARY TESTING EXECUTIVE COORDINATOR HPV Ordered, Please see separate report 06/18/2020 8:23 AM CDT [facility] Note The pap test is a [...] and malignant lesions. 06/18/2020 8:23 AM CDT [facility] Other (Cervical) Non-Blood / Unknown 06/09/2020 9:35 AM CDT 06/09/2020 11:24 AM CDT us Bernadette Cabrera MD PATHOLOGY/CYTOLOGY Final R esult [facility] [address] [place] [address], [place] from Last 3 Months or Most [...] 8:37 AM 04/26/2016 2:34 PM Care Teams Dust Control Engineer Relationship Specialty Start Date End Date Bernadette Cabrera [place] [address] PCP - General Family Practice 10/14/13 [facility] [address] [address] 01/16/22
--- OUTSIDE RECORDS SUMMARY | 2024-12-19 10:16 | XMS_ITS | Encounter Summary ---
Author Organization [facility] Address [address] [place] [address] Care Team Providers Care Delivery And Installation Subcontractor Name Role Phone David Parisi MD Primary Care Provider Uriel Mercedes MD Unavailable [phone] Reason for Visit * Reason Comments RECHECK DOS 03-20-24 Fusion L umbar Encounter Details Date Type Department Care Team (Late st Contact Info) Description 12/05/2024 8:40 AM MASTER CHEF Office Visit [facility] [place] [address] [facility] [address] 4th [place] [address] Uriel Mercedes MD [address] [place], [place] [id number] S/P lumbar spinal fusion (Primary Dx) Social [...] on file Legal Sex Female 5:08 AM MASTER CHEF Gender Identity Not on file Sexual Orientation [...] backout of loosening of L5 screws. [Implants: Daisy Marilee 3 screw system, UNILIF PEEK cage]. 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 [Implants: [employer] Solera and Ballast screw system, 5.5 mm CoCr rods x4, including 1 UNID cristian; Capstone Control PTC cages; SI-Bone [place] screws x2]. 03/20/2024 - Revision PISF T34-lcnbkv (proximal extension of previously placed L2 screws up to T12 with new screws bilateral T12 and L1 and connecting new rods to old ones), TLIF-SPO L1-2, use of infuse BMP, local autograft and crushed cancellous allograft (Sembrano) for large central suprajacent lateral central disc herniation with compression of the cauda equina at L1-2. [Implants: [employer] Solera screw system, 5.5 mm CoCr rods [...] did undergo left TKA in August at [facility] which subsequently got infected and required 2 [...] 8mo 32% 9mo 51.11% S/p Rev PISF D73-gnmfpc; TLIF-SPO L1-2 (03/20/24): CHELA preop 51.11% 6wk [...] present. Stable appearance of posterior fusion hardware D05-sjuesr without evidence of hardware failure or fracture. Mild increase in T11-12 disc degenerative changes compared to previous images. A> 54/F 1. 9 months s/p Revision PISF B07-lodfub for large central suprajacent lateral central disc herniation with compression of the cauda equina at L1-2; progressing as expected 2. S/p multiple lumbar spine surgeries ([id number], all by Dr. Mata, [facility]), culminating in L2-L5 TLIF-PISF. [...] [address] to assess fusion. Nilsa Galeas PA-C Attestation: I (Dr. Uriel Mercedes [...] with patient and family. Uriel Mercedes MD Psychologist [employer] [facility] Surgery Dept Orthopaedic Surgery, [facility] [phone] office, pager [email or web address] documented in this encounter Plan of Treatment Upcoming Encounters Date Type Department Care Team (Late st Contact Info) Description 05/29/2025 9:40 AM CDT Ancillary Procedure [facility] Imaging Center CT Clinic [address] 1st [place] [address] Uriel Mercedes MD [address] [place] [id number] 05/29/2025 10:40 AM CDT Office Visit [facility] [address] 4th [place] [phone] Uriel Mercedes MD [address] [place] [address] documented as of this encounter Visit Diagnoses Diagnosis S/P lumbar spinal fusion- Primary Arthrodesis status documented in this encounter Care Teams Delivery And Installation Subcontractor Relationship Specialty Start Date End Date David Parisi MD [address] [place] [address] PCP - General 03/16/23 Uriel Mercedes MD [address] [place] [address] Assigned Musculoskeletal Provider 03/25/23 documented as of this encounter
--- OUTSIDE RECORDS SUMMARY | 2024-12-19 10:16 | XMS_ITS | Encounter Summary ---
Author Organization [facility] Address [facility] [place] [address] Care Team Providers Care Choirmaster Name Role Phone David Parisi MD Primary Care Provider [phone] Uriel Mercedes MD Unavailable [phone] Brandon Parikh MD Unavailable Reason for Referral * Diagnostic Imaging XR (Routine) - Pending Review Specialty Diagnoses / Procedures Referred By Contac t Referred To Contact Radiology. Diagnoses S/P spinal fusion Herniated lumbar intervertebral disc History of fusion of cervical spine Status post lumbar spinal fusion Procedures XR EOS Total Body Uriel Mercedes MD [address] [place] [address] Phone: tel: fax: Referral ID Status Reason Start Date Expiration Date V isits Requested Visits Authorized [id number] Pending Review 11/13/2024 11/13/2025 1 1 ING ASSISTANT Encounter Details Date Type Department Care Team (Late st Contact Info) Description 11/13/[address] [facility] Only [facility] Orthopedic Clinic [place] [address] [facility] 4th [place] [address] Uriel Mercedes MD [address] [place] [phone] S/P spinal fusion (Primary Dx); Herniated lumbar [...] on file Legal Sex Female 5:08 AM BILLING ASSISTANT Gender Identity Not on file Sexual Orientation Not on file documented as of this encounter Plan of Treatment Upcoming Encounters Date Type Department Care Team (Late st Contact Info) Description 05/29/2025 9:40 AM CDT Ancillary Procedure [facility] Imaging Center CT Clinic [address] [place] [phone] Uriel Mercedes MD [address] [place] [address] 05/29/2025 10:40 AM CDT Office Visit [facility] Orthopedic Clinic [address] [place] [phone] Uriel Mercedes MD [address] [place] [address] documented as of this encounter Results * XR EOS Total Body (12/05/2024 9:18 AM BILLING ASSISTANT) Anatomical Region Laterality Modality Spine, Lower Extremity Computed Radiography Impressions 12/05/2024 1:22 PM BILLING ASSISTANT Impression: 1. Stable ACDF and posterior fusion at C5-C7 and posterior T12 the pelvis instrument fusion without evidence of hardware complication. Slightly increased opposing endplate degenerative changes at T11-T12. 2. No global sagittal or coronal imbalance. 3. Weight bearing axis as detailed above. EBONY WRIGHT MD Narrative 12/05/2024 1:22 PM BILLING ASSISTANT Exam: Full body radiographs using EOS History: [...] No substantial global coronal imbalance. Sagittal Vertical Crawford (A vertical line drawn from the center [...] No substantial global coronal imbalance. Sagittal Vertical Crawford (A vertical line drawn from the center [...] status documented in this encounter Care Teams Choirmaster Relationship Specialty Start Date End Date David Parisi MD [address] [place] [address] PCP - General 03/16/23 Uriel Mecredes MD [address] [place] [address] Assigned Musculoskeletal Provider 03/25/23 Brandon Parikh MD [address] [place], [place] [phone] Assigned Neuroscience Provider 04/29/23 11/23/24 documented as of this encounter
--- OUTSIDE RECORDS SUMMARY | 2024-12-19 10:16 | XMS_ITS | Encounter Summary ---
Author Organization [facility] Address [address] [place] [address] Care Team Providers Care Unix Engineer Name Role Phone David Parisi MD Primary Care Provider Uriel Mercedes MD Unavailable Brandon Parikh MD Unavailable Encounter Details Date Type Department Care Team (Late st Contact Info) Description 01/29/2024 Telephone [facility] [place] [address] [facility] [address] 4th [place] [address] Uriel Mercedes MD [address] [place] [address] Social History Tobacco Use Types [...] on file Legal Sex Female 5:08 AM CAR VARNISHER Gender Identity Not on file Sexual Orientation Not on file documented as of this encounter Miscellaneous Notes * Telephone Encounter - Lidia Jimenez RN - 01/29/2024 11:05 AM CDT RN Called patient to discuss MRIs. Patient stating that this was an FYI for Johanna ORDAZ. Lidia Jimenez, RN * Telephone Encounter - Lucero Johnson - 01/29/2024 10:45 AM CDT Other: Ja Stockton is calling because she has her mri scheduled on 02/11/24 at [facility].She would like to talk to Johanna Could we [facility] this [facility] or would you prefer to receive a phone call?: Patient would prefer a phone call Okay to leave a detailed message?: Yes at Home number on file [phone] (home) documented in this encounter Plan of Treatment Upcoming Encounters Date Type Department Care Team (Late st Contact Info) Description 05/29/2025 9:40 AM CDT Ancillary Procedure [facility] Imaging Center CT Clinic [address] 1st [place] [phone] Uriel Mercedes MD [address] [place] [phone] 05/29/2025 10:40 AM CDT Office Visit [facility] [address] 4th [place] [phone] Uriel Mercedes MD [address] [place] [address] documented as of this encounter Visit Diagnoses Not on filedocumented in this encounter Care Teams Unix Engineer Relationship Specialty Start Date End Date David Parisi MD [address] [place] [address] PCP - General 03/16/23 Uriel Mercedes MD [address] [place] [address] Assigned Musculoskeletal Provider 03/25/23 Brandon Parikh MD [address] [place] [address] Assigned Neuroscience Provider 04/29/23 11/23/24 documented as of this encounter
[2024-12-19 10:17] LABS: PCR FLU A Negative PCR FLU A (Negative); PCR FLU B Negative PCR FLU B (Negative); PCR RSV Negative PCR RSV (Negative); SARS PCR* Negative SARS-CoV-2 (Negative)
--- OUTSIDE RECORDS SUMMARY | 2024-12-19 10:17 | XMS_ITS | Encounter Summary ---
Author Organization [facility] Address [address] [place] [address] Care Team Providers Care Bead Machine Operator Name Role Phone David Parisi MD Primary Care Provider [phone] Uriel Mercedes MD Unavailable Encounter Details Date [...] on file Legal Sex Female 5:08 AM CHART CHANGER Gender Identity Not on file Sexual Orientation Not on file documented as of this encounter Plan of Treatment Upcoming Encounters Date Type Department Care Team (Late st Contact Info) Description 05/29/2025 9:40 AM CDT Ancillary Procedure [facility] Imaging Center CT Clinic [address] 1st [place] [address] Uriel Mercedes MD [address] [facility] [address] [place], [place] [address] 05/29/2025 10:40 AM CDT Office Visit [facility] [address] 4th [place] [address] Uriel Mercedes MD [address] [facility] [address] [place] [address] documented as of this encounter Visit Diagnoses Not on filedocumented in this encounter Care Teams Bead Machine Operator Relationship Specialty Start Date End Date David Parisi MD [address] [place] [address] PCP - General 03/16/23 Uriel Mercedes MD [address] [facility] [place] [address] Assigned Musculoskeletal Provider 03/25/23 documented as of this encounter
--- OUTSIDE RECORDS SUMMARY | 2024-12-19 10:17 | XMS_ITS | Encounter Summary ---
Author Organization [facility] Address [facility] [place] [address] Care Team Providers Care Outside Sales Representative Name Role Phone David Parisi MD Primary Care Provider Uriel Mercedes MD Unavailable Brandon Parikh MD Unavailable Reason for Visit * Reason Onset Date Comments Prior Auth - Medication 04/27/2023 LamoTRIg ine (LAMICTAL) 250 MG TB24 - APPROVAL Encounter Details Date Type Department Care Team (Late st Contact Info) Description 04/27/2023 Telephone [facility] Neurology Clinic [address] [address] [place] [address] [place] [address] Prior Auth - Medication (LamoTRIgine (LAMICTAL) [...] on file Legal Sex Female 5:08 AM BUTTER LIQUEFIER Gender Identity Not on file Sexual Orientation [...] Dose/Quantity: 30 FOR 30 DAYS Insurance Company: [email or web address] Part D - [facility] is filling the prescription: MARISA [...] ER 250 MG PO TB24 Insurance Company: [email or web address] Part D - Pharmacy Filling the Rx: [...] Description 05/29/2025 9:40 AM CDT Ancillary Procedure [facility] Imaging Center CT Clinic [address] 1st [place] [phone] Uriel Mercedes MD [address] [place], [place] [phone] 05/29/2025 10:40 AM CDT Office Visit [facility] Orthopedic Clinic [address] 4th [place] [phone] Uriel Mercedes MD [address] [place] [address] documented as of this encounter Visit Diagnoses Not on filedocumented in this encounter Care Teams Outside Sales Representative Relationship Specialty Start Date End Date David Parisi MD [address] [place] [address] PCP - General 03/16/23 Uriel Mercedes MD [address] [place] [address] Assigned Musculoskeletal Provider 03/25/23 Brandon Parikh MD [address] [place] [address] Assigned Neuroscience Provider 04/29/23 11/23/24 documented as of this encounter
--- OUTSIDE RECORDS SUMMARY | 2024-12-19 10:17 | XMS_ITS | Encounter Summary ---
Author Organization [place] Address [address] [place] [address] Care Team Providers Care Combination Welder Name Role Phone David Parisi MD Primary Care Provider [phone] Uriel Mercedes MD Unavailable [phone] Reason for Referral * Diagnostic Imaging CT Scan (Routine) - Authorized Specialty Diagnoses / Procedures Referred By Contac t Referred To Contact Radiology. Diagnoses S/P lumbar spinal fusion Herniated lumbar intervertebral disc Status post lumbar spinal fusion Procedures CT Lumbar Spine w/o Contrast Uriel Mercedes MD [address] [place] [address] Phone: tel: fax: Referral ID Status Reason Start Date Expiration Date V isits Requested Visits Authorized [id number] Authorized 12/05/2024 12/05/2025 1 1 RISK ANALYST Encounter Details Date Type Department Care Team (Late st Contact Info) Description 12/05/2024 Orders Only [facility] [place] [id number] [facility] [address] 4[address] [place] [address] Uriel Mercedes MD [address] [place], [place] [address] [place], [place] [phone] S/P lumbar spinal fusion (Primary Dx); Herniated [...] on file Legal Sex Female 5:08 AM IT RISK ANALYST Gender Identity Not on file Sexual Orientation Not on file documented as of this encounter Plan of Treatment Upcoming Encounters Date Type Department Care Team (Late st Contact Info) Description 05/29/2025 9:40 AM CDT Ancillary Procedure [facility] [address] 1st [place] [phone] Uriel Mercedes MD [address] [place] [address] 05/29/2025 10:40 AM CDT Office Visit [facility] [address] 4th [place] [phone] Uriel Mercedes MD [address] [place] [address] Scheduled Orders Name Type Priority Associated Diagnoses [...] status documented in this encounter Care Teams Combination Welder Relationship Specialty Start Date End Date David Parisi MD [address] [place] [address] PCP - General 03/16/23 Uriel Mercedes MD [address] [facility] [address] [place] [address] Assigned Musculoskeletal Provider 03/25/23 documented as of this encounter
--- OUTSIDE RECORDS SUMMARY | 2024-12-19 10:17 | XMS_ITS | Encounter Summary ---
Author Organization [facility] Address [address] [place] [address] Care Team Providers Care Way Inspector Name Role Phone None Reported, Pcp Primary Care Provider Unavail able Reason for Visit * Reason Comments Med Refill Encounter Details Date Type Department Care Team (Late st Contact Info) Description 11/02/2024 Refill [facility] [place] [address] [place] [phone] Joann Gaffney, TYRESE, C.N.P. [address] [place] [address] Med Refill Social History Tobacco Use Types [...] on file Legal Sex Female 4:47 PM GRAIN LOADER Gender Identity Not on file Sexual Orientation Not on file documented as of this encounter Miscellaneous Notes * Telephone Encounter - Luisa Charles REmmanuelN. - 11/04/2024 7:46 AM GRAIN LOADER Pt not under Erica Gaffney's Care N LOADER documented in this encounter Plan of Treatment Upcoming Encounters Date Type Department Care Team (Late st Contact Info) Description 02/19/2025 10:15 AM CDT Office Visit Department of Neurology in [place], [place] [address] [address] Casa Larose M.D. [address] [place] [address] documented as of this encounter Visit Diagnoses Not on filedocumented in this encounter Care Teams Way Inspector Relationship Specialty Start Date End Date None Reported, Pcp PCP - General Family Medicine 10/04/24 documented as of this encounter
--- OUTSIDE RECORDS SUMMARY | 2024-12-19 10:17 | XMS_ITS | Encounter Summary ---
Author Organization [place] Address [address] [place] [address] Care Team Providers Care Lobby Porter Name Role Phone David Parisi MD Primary Care Provider Uriel Mercedes MD Unavailable Brandon Parikh MD Unavailable Reason for Visit * Reason Onset Date Comments Results 04/24/2023 Lab results of lab draw Encounter Details Date Type Department Care Team (Late st Contact Info) Description 04/24/2023 Telephone [facility] Preoperative Assessment [facility] [address] [place] [address] Michelle Shannon APRN [address] [address] Results (Lab results of 04/19/23 [...] on file Legal Sex Female 5:08 AM FUNCTIONAL SUPPORT ANALYST Gender Identity Not on file Sexual Orientation Not on file COVID-19 Exposure Response Date Recorded In the last 10 days, have yo u been in contact with someone who was confirmed or suspected to have Coronavirus/COVID-19? No / Unsure 04/27/2023 10:44 AM CDT documented as of this encounter Miscellaneous Notes * Telephone Encounter - ShaliniNarcisa jacobsenine - 04/24/2023 1:27 PM CDT [facility] Call Center Phone Message May a detailed message be left on voicemail: yes Reason for Call: Requesting Results Name/type of test: Labs Date of test: 04/19/23 Was test done at a location other than [facility] (Please fill in the location if not [facility])?: Yes: [facility] (in care Everywhere) Action Taken: Message routed to: [facility] Travel Screening: Not Applicable documented in this encounter Plan of Treatment Upcoming Encounters Date Type Department Care Team (Late st Contact Info) Description 05/29/2025 9:40 AM CDT Ancillary Procedure [facility] Imaging Center [facility] Clinic [address] 1st [place] [phone] Uriel Mercedes MD [address] [place] [address] 05/29/2025 10:40 AM CDT Office Visit [facility] [address] 4th [place] [phone] Uriel Mercedes MD [address] [place] [address] documented as of this encounter Visit Diagnoses Not on filedocumented in this encounter Care Teams Lobby Porter Relationship Specialty Start Date End Date David Parisi MD [address] [place] [address] PCP - General 03/16/23 Uriel Mercedes MD [address] [facility] [address] [address] Assigned Musculoskeletal Provider 03/25/23 Brandon Parikh MD [address] [place] [address] Assigned Neuroscience Provider 04/29/23 11/23/24 documented as of this encounter
--- OUTSIDE RECORDS SUMMARY | 2024-12-19 10:17 | XMS_ITS | Encounter Summary ---
Author Organization [place] Address [address] [place] [address] Care Team Providers Care Social Services Specialist Name Role Phone David Parisi MD Primary Care Provider Uriel Mercedes MD Unavailable Brandon Parikh MD Unavailable Reason for Visit * Reason Onset Date Comments Call Back 04/20/2023 Pt needs to spederek bar with someone concerning her 05/01 procedure Clinic Care Coordination - Follow-up 04/20/2023 Encounter Details Date Type Department Care Team (Late st Contact Info) Description 04/20/[address] [facility] [place] [address] [facility] [address] 4th [place] [address] Uriel Mercedes MD [address] [place] [address] Call Back (Pt needs to [...] on file Legal Sex Female 5:08 AM CLINICAL PHARMACY MANAGER Gender Identity Not on file Sexual [...] Kristina Cordero - 04/20/2023 1:24 PM CDT [facility] Phone Message May a detailed message be [...] Mercedes. Please call patient. Action Taken: Other: [phone] Travel Screening: Not Applicable documented in this encounter Plan of Treatment Upcoming Encounters Date Type Department Care Team (Late st Contact Info) Description 05/29/2025 9:40 AM CDT Ancillary Procedure [facility] Imaging Center [facility] Clinic [address] 1st [place] [phone] Uriel Mercedes MD [address] [place] [address] 05/29/2025 10:40 AM CDT Office Visit [facility] [address] 4th [place] [phone] Uriel Mercedes MD [address] [place] [address] documented as of this encounter Visit Diagnoses Not on filedocumented in this encounter Care Teams Social Services Specialist Relationship Specialty Start Date End Date David Parisi MD [address] [place] [address] PCP - General 03/16/23 Uriel Mercedes MD [address] [place] [address] Assigned Musculoskeletal Provider 03/25/23 Brandon Parikh MD [address] [place] [address] Assigned Neuroscience Provider 04/29/23 11/23/24 documented as of this encounter
--- OUTSIDE RECORDS SUMMARY | 2024-12-19 10:17 | XMS_ITS | Encounter Summary ---
Author Organization [place] Address [address] [place] [address]. [place] [address] Care Team Providers Care Retail Service Representative Name Role Phone David Parisi MD Primary Care Provider [phone] Uriel Mercedes MD Unavailable Brandon Parikh MD Unavailable Reason for Visit * Reason Onset Date Comments Call Back 04/21/2023 Upcoming Surgery Conversation She want to have with Doctor. Misunderstanding from Yesterday Conversation. Please call Encounter Details Date Type Department Care Team (Late st Contact Info) Description 04/21/2023 Telephone [facility] [place] [address] [facility] [address] 4[address] [place] [address] Uriel Mercedes MD [address] [place] [address] Call Back (Upcoming Surgery Conversation [...] on file Legal Sex Female 5:08 AM PRODUCT MGR Gender Identity Not on file Sexual Orientation [...] Alexia Sloan - 04/21/2023 8:33 AM CDT [facility] Call Center Phone Message May a detailed message be left on voicemail: yes Reason for Call Upcoming Surgery Conversation She want to have with Doctor. Misunderstanding from Yesterday Conversation. Please call Action Taken: Message routed to: [facility] Travel Screening: Not Applicable documented in this encounter Plan of Treatment Upcoming Encounters Date Type Department Care Team (Late st Contact Info) Description 05/29/2025 9:40 AM CDT Ancillary Procedure [facility] Imaging Center CT Clinic [address] 1st [place] [phone] Uriel Mercedes MD [address] [place] [address] 05/29/2025 10:40 AM CDT Office Visit [facility] [address] 4th [place] [phone] Uriel Mercedes MD [address] [place] [address] documented as of this encounter Visit Diagnoses Not on filedocumented in this encounter Care Teams Retail Service Representative Relationship Specialty Start Date End Date David Parisi MD [address] [place] [address] PCP - General 03/16/23 Uriel Mercedes MD [address] [place] [address] Assigned Musculoskeletal Provider 03/25/23 Brandon Parikh MD [address] [place] [address] Assigned Neuroscience Provider 04/29/23 11/23/24 documented as of this encounter
--- OUTSIDE RECORDS SUMMARY | 2024-12-19 10:17 | XMS_ITS | Clinical Summary ---
Author Organization [facility] Address [address] [place] [address] Care Team Providers Care Can Maker Name Role Phone None Reported, Pcp Primary Care Provider Unavail able Source Comments Patient records contain information from all sites at [facility]. For routine questions regarding patient records, call [phone] during business hours, M-F 8:00 AM - 5:00 PM Central Time. Record requests for emergency care only can be directed to [phone] at any time.[facility] Allergies Active Allergy Reactions Criticality Noted Date [...] 10/03/2024 Assessment & Plan (10/03/2024 2:13 PM STATION INSTALLER): Component Ref Range & Units 3 d [...] 09/23/2024 Assessment & Plan (10/03/2024 2:11 PM STATION INSTALLER): Continue p.r.n. hydroxyzine- script sent Assessment & Plan (09/23/2024 1:43 PM STATION INSTALLER): Continue p.r.n. hydroxyzine for 30 days for anxiety Anemia 09/23/2024 Assessment & Plan (10/03/2024 2:10 PM STATION INSTALLER): Lab Results Component Value Date HGB 8.8 (L) 10/01/2024 Hemoglobin has improved from 7.8 to 8.8 Positive hemoccult Weekly hemoglobins Monitor for signs of active bleeding Upper endoscopy/colonoscopy recommended in future- she will discuss with PCP Celebrex was stopped Assessment & Plan (09/23/2024 1:53 PM STATION INSTALLER): Lab Results Component Value Date HGB 8.2 (L) 09/19/2024 Positive hemoccult Weekly hemoglobins Monitor for signs of active bleeding Upper endoscopy/colonoscopy recommended in future Discontinue Celebrex Infection Total Knee Arthroplasty Subsequent Lef t 09/16/2024 Assessment & Plan (10/03/2024 2:09 PM STATION INSTALLER): Continue with IV cefazolin via PICC line 2 g every 8 hours until 10/17/23- she will need follow up with infectious disease prior to stopping antibiotics Labs per Infectious Disease As needed acetaminophen As needed oxycodone for pain control- she has supply at home Assessment & Plan (09/23/2024 1:53 PM STATION INSTALLER): Continue with IV cefazolin via PICC line [...] transfer Assessment & Plan (09/16/2024 1:04 PM STATION INSTALLER): Continue with IV cefazolin via PICC line [...] 09/16/2024 Assessment & Plan (10/03/2024 2:09 PM STATION INSTALLER): Continue ropinirole Assessment & Plan (09/23/2024 1:42 PM STATION INSTALLER): Continue ropinirole Assessment & Plan (09/16/2024 1:16 PM STATION INSTALLER): Continue ropinirole- requesting this between 7:30 and 8 p.m. 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 02/07/2024 Lumbago With Sciatica Right Side 02/20/2022 Seizure 04/21/2021 Assessment & Plan (10/03/2024 2:08 PM STATION INSTALLER): Continue lacosamide and lamotrigine Assessment & Plan (09/23/2024 1:25 PM STATION INSTALLER): Continue lacosamide and lamotrigine Assessment & Plan (09/16/2024 12:58 PM STATION INSTALLER): Continue lacosamide and lamotrigine Spinal Stenosis Lumbar Regio n Without Neurogenic Claudication 04/29/2016 Other Intervertebral Disc Displacement Lumbar Re gion 10/23/2015 Assessment & Plan (09/16/2024 1:19 PM STATION INSTALLER): Patient states she has had multiple spine surgeries in the past Continue Lyrica Celiac Disease 08/06/2014 Overview (09/16/2024): EGD 08/2014 celiac disease Insulin Pump Status 04/01/2014 Unsteadiness Gait Disorder Non Orthopedic 2012 Assessment & Plan (10/03/2024 2:12 PM STATION INSTALLER): Uses walker Assessment & Plan (09/23/2024 1:43 PM STATION INSTALLER): Continue with PT and OT Assessment & Plan (09/16/2024 1:02 PM STATION INSTALLER): Continue with PT and OT Diabetes Mellitus Type 1 Wit h Diabetic Chronic Kidney Disease 11/16/2012 Overview (09/16/2024): Diagnosed at age 1 On insulin pump since 2007. Good control. Proliferative retinopathy with laser photocoagulation 1990 Cataract surgery, legally blind both eyes. No neuropathy. ++hypoglycemia unawareness, microalbuminuria. Assessment & Plan (10/03/2024 2:10 PM STATION INSTALLER): She is managing her own insulin via pump Assessment & Plan (09/23/2024 1:43 PM STATION INSTALLER): She is managing her own insulin via pump Assessment & Plan (09/16/2024 12:59 PM STATION INSTALLER): She is managing her own insulin via pump Insomnia 09/04/2012 Overview (09/16/2024): She takes occasional ambien. Generally gets about 30 pills and lasts her 6 months. Assessment & Plan (10/03/2024 2:11 PM STATION INSTALLER): PRN zolpidem, she has supply at home Assessment & Plan (09/23/2024 1:44 PM STATION INSTALLER): PRN zolpidem, x30 days follow up in 2 weeks Assessment & Plan (09/16/2024 1:01 PM STATION INSTALLER): PRN zolpidem, x14 days follow up in 2 weeks Depression Major Recurrent Partial Remission 01/2012 Assessment & Plan (10/03/2024 2:11 PM STATION INSTALLER): Continue duloxetine Assessment & Plan (09/16/2024 1:01 PM STATION INSTALLER): Not currently on medications Dyslipidemia 02/05/2010 Assessment & Plan (10/03/2024 2:10 PM STATION INSTALLER): Continue atorvastatin Assessment & Plan (09/16/2024 1:00 PM STATION INSTALLER): Continue atorvastatin Encounters Date Type Department Care Team Description 11/02/2024 Refill [facility] in [place] [address] [place] [place] [address] Joann Gaffney APRN, C.N.P. Med Refill 10/03/2024 10:30 AM STATION INSTALLER External Outreach [facility] in [place] [address] [place] [place] [address] Joann Gaffney APRN, C.N.P. 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 Anemia Discharge Disposition: Home or Self Care 09/30/2024 11:20 AM STATION INSTALLER - 09/30/2024 11:59 PM STATION INSTALLER Hospital Encounter Department of Laboratory Medicine in [place] [address] [place] [phone] Joann Gaffney APRN, C.N.P. Failure Heart Low Output Syndrome (HCC) Discharge Disposition: Home or Self Care 09/28/2024 ED Telemedicine [facility] Emergency Department [address] [place] [address] Arnulfo Botello M.D. Edema Extremity (Primary Dx); Elevated Blood Pressure Discharge Disposition: Home or Self Care 09/28/2024 Clinical Communication [facility] in [place] [address] [place] [phone] Emilia Li APRN, C.N.P. 09/24/2024 2:50 PM STATION INSTALLER - 09/24/2024 11:59 PM STATION INSTALLER Hospital Encounter Department of Laboratory Medicine in [place] [address] [place] [phone] Cleo Campos D.O. Infection And Inflammatory Reaction Due To Internal Left Knee Prosthesis Initial (HCC) Discharge Disposition: Home or Self Care 09/23/2024 3:00 PM STATION INSTALLER External Outreach [facility] in [place] [address] [place] [phone] Joann Gaffney APRN, C.N.P. Seizure (HCC) (Primary [...] on file Legal Sex Female 4:47 PM STATION INSTALLER Gender Identity Not on file Sexual Orientation Not on file Last Filed Vital Signs Vital Sign Reading Time Taken Comments Blood Pressure 167/56 10/03/2024 7:42 AM STATION INSTALLER Pulse 90 10/03/2024 7:42 AM STATION INSTALLER Temperature 36.6 C (97.8 F) 10/03/2024 7:42 AM STATION INSTALLER Respiratory Rate 18 10/03/2024 7:42 AM STATION INSTALLER Oxygen Saturation 91% 10/03/2024 7:42 AM STATION INSTALLER Inhaled Oxygen Concentration - - Weight 91.8 kg (202 lb 6.4 oz) 10/03/2024 7:42 A M STATION INSTALLER Height 152.4 cm (5') 09/13/2024 9:42 AM STATION INSTALLER Body Mass Index 39.53 09/13/2024 9:42 AM STATION INSTALLER Plan of Treatment Upcoming Encounters Date Type Department Care Team (Late st Contact Info) Description 02/19/2025 10:15 AM CDT Office Visit Department of Neurology in [place], [place] [address] [phone] Casa Larose M.D. [address] [phone] Health Maintenance Due Date Last Done Comments [...] WITHOUT DIFFERENTIAL, B Routine 10/01/2024 2:55 PM STATION INSTALLER Anemia CREATININE WITH EGFR, S/P Routine 10/01/2024 2:55 PM STATION INSTALLER Anemia C-REACTIVE PROTEIN (CRP), S/P Routine 10/01/2024 2:55 PM STATION INSTALLER Anemia ALANINE AMINOTRANSFERASE (ALT), S/P Routine 10/01/2024 2:55 PM STATION INSTALLER Anemia BASIC METABOLIC PANEL, S/P Routine 09/30/2024 1:00 PM STATION INSTALLER Failure Heart Low Output Syndrome (HCC) NT-PRO B-TYPE NATRIURETIC PEPTIDE (BNP), S Routine 09/30/2024 1:00 PM STATION INSTALLER Failure Heart Low Output Syndrome (HCC) CBC WITH DIFFERENTIAL, B Routine 024 1:15 PM STATION INSTALLER Infection And Inflammatory Reaction Due To Internal Left Knee Prosthesis Initial (HCC) CREATININE WITH EGFR, S/P Routine 09/24/2024 1:15 PM STATION INSTALLER Infection And Inflammatory Reaction Due To Internal Left Knee Prosthesis Initial (HCC) C-REACTIVE PROTEIN (CRP), S/P Routine 09/24/2024 1:15 PM STATION INSTALLER Infection And Inflammatory Reaction Due To Internal Left Knee Prosthesis Initial (HCC) ALANINE AMINOTRANSFERASE (ALT), S/P Routine 09/24/2024 1:15 PM STATION INSTALLER Infection And Inflammatory Reaction Due To Internal Left Knee Prosthesis Initial (HCC) HEMOGLOBIN A1C, B Routine 10/25/2019 LIPID PANEL, S Routine 07/19/2019 from Last 3 Months or Most Recently Relevant to Health Maintenance Results * (ABNORMAL) CBC without Differential (10/01/2024 2:55 PM STATION INSTALLER) Hemoglobin 8.8(L) 11.6 - 15.0 g/dL 10/01/2024 3:29 PM STATION INSTALLER [facility] Hematocrit 28.2(L) 35.5 - 44.9 % 10/01/2024 3:29 PM STATION INSTALLER NPR[facility] Erythrocytes 2.98(L) 3.92 - 5.13 x10(12)/L 10/01/2024 3:29 PM STATION INSTALLER [facility] MCV 94.6 78.2 - 97.9 fL 10/01/2024 3:29 PM STATION INSTALLER NPR[facility] RBC Distrib Width 15.8 12.2 - 16.1 % 10/01/2024 3:29 PM STATION INSTALLER NPR[facility] Platelet Count 287 157 - 371 x10(9)/L 10/01/2024 3:29 PM STATION INSTALLER NPR[facility] Leukocytes 7.7 3.4 - 9.6 x10(9)/L 10/01/2024 3:29 PM STATION INSTALLER NPR[facility] Blood (Blood, Venous) 10/01/2024 2:55 PM STATION INSTALLER 10/01/2024 3:19 PM STATION INSTALLER Joann Gaffney APRN, C.N.P. LAB BLOOD ADD-ON Fi nal Result Performing Organization Address City/[facility] Co de Phone Number [facility] [address] [place] [address], [facility] NPRG [address] [address] * (ABNORMAL) CRP (C-Reactive Protein) (10/01/2024 2:55 PM STATION INSTALLER) Only the most recent of2 resultswithin the time period is included. C-Reactive Protein (CRP), P 53.4(H) <5.0 mg/L 10/01/2024 3:33 PM STATION INSTALLER NPR[facility] Blood (Blood, Venous) 10/01/2024 2:55 PM STATION INSTALLER 10/01/2024 3:19 PM STATION INSTALLER Joann Gaffney APRN, C.N.P. LAB BLOOD ADD-ON Fi nal Result Performing Organization Address [facility] Co de Phone Number [facility] [address] [place] [address], [facility] [address] [address] * (ABNORMAL) ALT (Alanine Aminotransferase) (10/01/2024 2:55 PM STATION INSTALLER) Only the most recent of2 resultswithin the time period is included. Alanine Aminotransferase (ALT), P <5(L) 7 - 45 U/L 10/01/2024 4:28 PM STATION INSTALLER NPR[facility] Blood (Blood, Venous) 10/01/2024 2:55 PM STATION INSTALLER 10/01/2024 3:19 PM STATION INSTALLER Joann Gaffney APRN, C.N.P. LAB BLOOD ADD-ON Fi nal Result Performing Organization Address City/[facility] Co de Phone Number [facility] [address] [place] [address], [place] NPR[facility] [place] [address] [place] [address] * Creatinine with Estimated GFR (10/01/2024 2:55 PM STATION INSTALLER) Only the most recent of2 resultswithin the time period is included. Creatinine 0.69 0.59 - 1.04 mg/dL 10/01/2024 3:33 PM STATION INSTALLER [facility] Estimated GFR (eGFR) >90 >=60 mL/min/BSA 10/01/2024 3:33 PM STATION INSTALLER NPR[facility] Comment: Estimated GFR calculated using the 2020 CKD_EPI creatinine equation. Blood (Blood, Venous) 10/01/2024 2:55 PM STATION INSTALLER 10/01/2024 3:19 PM STATION INSTALLER Joann Gaffney APRN, C.N.P. LAB BLOOD ADD-ON Fi nal Result Performing Organization Address City/[facility] Co de Phone Number [facility] [address] [place] [address], [place] [facility] [place] [address] [place] [address] * (ABNORMAL) NT-Pro B-Type Natriuretic Peptide (BNP) (09/30/2024 1:00 PM STATION INSTALLER) NT-Pro BNP 225(H) <=141 pg/mL 09/30/2024 3:18 PM STATION INSTALLER NPR[facility] Comment: NT-proBNP values less than 300 [...] failure. Blood (Blood, Venous) 09/30/2024 1:00 PM STATION INSTALLER 09/30/2024 2:19 PM STATION INSTALLER Joann Gaffney APRN C.N.P. LAB BLOOD ADD-ON Fi nal Result - [facility] [address] [place] [address], [place] [facility] [address] [place] [address] * (ABNORMAL) Basic Metabolic Panel (09/30/2024 1:00 PM STATION INSTALLER) Potassium, P 3.9 3.6 - 5.2 mmol/L 09/30/2024 2:37 PM STATION INSTALLER NPR[facility] Sodium, P 141 135 - 145 mmol/L 09/30/2024 2:37 PM STATION INSTALLER NPR[facility] Chloride, P 102 98 - 107 mmol/L 09/30/2024 2:37 PM STATION INSTALLER NPR[facility] Bicarbonate, P 30(H) 22 - 29 mmol/L 09/30/2024 2:37 PM STATION INSTALLER [facility] Anion Gap, P 9 7 - 15 09/30/2024 2:37 PM STATION INSTALLER NPR[facility] BUN (Blood Urea Nitrogen), P 12 6 - 21 mg/dL 09/30/2024 2:37 PM STATION INSTALLER NPR[facility] Creatinine 0.77 0.59 - 1.04 mg/dL 09/30/2024 2:37 PM STATION INSTALLER NPR[facility] Estimated GFR (eGFR) >90 >=60 mL/min/BSA 09/30/2024 2:37 PM STATION INSTALLER NPRG Comment: Estimated GFR calculated using the 2020 CKD_EPI creatinine equation. Calcium, Total, P 8.9 8.6 - 10.0 mg/dL 09/30/2024 2:37 PM STATION INSTALLER NPR[facility] Glucose, P 159(H) 70 - 140 mg/dL 09/30/2024 2:37 PM STATION INSTALLER NPR[facility] Blood (Blood, Venous) 09/30/2024 1:00 PM STATION INSTALLER 09/30/2024 2:19 PM STATION INSTALLER us Joann Gaffney APRN C.N.PEmmanuel LAB BLOOD ADD-ON Fi nal Result - [facility] [address] [place] [address], [place] [facility] [address] [place] [address] * (ABNORMAL) CBC with Differential, Blood (09/24/2024 1:15 PM STATION INSTALLER) Pathologist [facility] Hemoglobin 7.8(L) 11.6 - 15.0 g/dL 09/24/2024 3:24 PM STATION INSTALLER NPRG Hematocrit 25.6(L) 35.5 - 44.9 % 09/24/2024 3:24 PM STATION INSTALLER NPRG Erythrocytes 2.69(L) 3.92 - 5.13 x10(12)/L 09/24/2024 3:24 PM STATION INSTALLER NPR[facility] MCV 95.2 78.2 - 97.9 fL 09/24/2024 3:24 PM STATION INSTALLER NPR[facility] RBC Distrib Width 15.8 12.2 - 16.1 % 09/24/2024 3:24 PM STATION INSTALLER NPR[facility] Platelet Count 376(H) 157 - 371 x10(9)/L 09/24/2024 3:24 PM STATION INSTALLER NPR[facility] Leukocytes 7.0 3.4 - 9.6 x10(9)/L 09/24/2024 3:24 PM STATION INSTALLER [facility] Neutrophils 5.05 1.56 - 6.45 x10(9)/L 09/24/2024 3:24 PM STATION INSTALLER NPR[facility] Lymphocytes 0.85(L) 0.95 - 3.07 x10(9)/L 09/24/2024 3:24 PM STATION INSTALLER NPR[facility] Monocytes 0.74 0.26 - 0.81 x10(9)/L 09/24/2024 3:24 PM STATION INSTALLER NPRG Eosinophils 0.34 0.03 - 0.48 x10(9)/L 09/24/2024 3:24 PM STATION INSTALLER NPRG Basophils <0.04 0.01 - 0.08 x10(9)/L 09/24/2024 3:24 PM STATION INSTALLER NPR[facility] Blood (Blood, Venous) 09/24/2024 1:15 PM STATION INSTALLER 09/24/2024 3:14 PM STATION INSTALLER us Cleo Campos D.O. LAB BLOOD ADD-ON Final Result - [facility] [address] [place] [address], [place] [facility] [address] [place] [address] * Hemoglobin A1c (10/25/2019) EXT Hemoglobin A1c, B 6.8 OTHER (SPECIFY IN FIREFIGHTER TYPE ONE) Blood (Blood, Venous) us Ordering Provider External M.D. LAB BLOOD ADD-ON Final Result OTHER (SPECIFY IN FIREFIGHTER TYPE ONE) N/A * Lipid Panel (07/19/2019) EXT Cholesterol, Total, S 151 OTHER (SPECIFY IN FIREFIGHTER TYPE ONE) EXT Triglycerides, S 120 OTHER (SPECIFY IN FIREFIGHTER TYPE ONE) EXT Cholesterol, HDL, S 59 OTHER (SPECIFY IN FIREFIGHTER TYPE ONE) Blood (Blood, Venous) Ordering Provider External M.D. LAB BLOOD ADD-ON Final Result OTHER (SPECIFY IN FIREFIGHTER TYPE ONE) N/A from Last 3 Months or Most Recently Relevant to Health Maintenance Insurance [place]IC[place] Advance Directives For more information, please contact: [phone] Documents on File Type Date Recorded Patient Apartment Maintenance Expl anation Advance Directives 09/16/2024 11:16 AM PO LST/MOLST Care Teams Can Maker Relationship Specialty Start Date End Date None Reported, Pcp PCP - General Family Medicine 10/04/24
[2024-12-19 10:20] LABS: Erythrocyte SedimentationRate* 42 mm/hr (2-20)
[2024-12-19] MEDS: MECLIZINE HCL 25 MG TABLET PO (12:19)
[2024-12-19] MEDS: INSULIN REGULAR, HUMAN 100 UNIT/ML VIAL SUBCUT (13:02)
--- NOTE | 2024-12-19 15:27 | PM.IMHP1 ---
Assessment and Plan Assessment and plan (1) Effusion of knee joint, left: Problem comment: - baseline vs early infectious/inflammatory process (reassuring CBC, VS) - follow CBC, inflammatory markers - continue Doxycycline, not adding additional antibiotics upon admission given stability Status: Acute (2) Nausea and vomiting: Problem comment: - noted intermittently over the past 2 weeks, negative CT enterography on 12/16/2024 with PCP - hungry and requesting regular diet on admission 12/19/2024 - query iatrogenic from doxycycline, will add probiotics Status: Acute (3) Vertigo: Problem comment: - upon further questioning, sounds more like restless leg syndrome than any intracerebral symptom - will request PT and OT evaluations Status: Acute (4) Status post left knee surgery: Problem comment: - left knee I&D for abscess formation (09/06 and 09/11/2024, Dr. Renner) after knee replacement in August of 2024 - on doxycycline BID and will continue this Status: Acute (5) Restless leg syndrome: Problem comment: - continue home medications Status: Acute (6) Type I diabetes mellitus: Problem comment: -insulin pump and Dexcom -A1C 7.0 on 11/28/24 Status: Acute Plan - Per above - anticipate home in 1-2 days, she and sister Tessa do not anticipate agreeing to a SNF stay Hospitalist- H&P: HPI History of Present Illness Date Seen: 12/19/24 Chief complaint: ems Narrative: Jennifer May is a 54 year old female with type 1 DM, recent LTKA (08/2024) s/p prosthetic infection (I&D 09/06/24 and 09/11/24) who presented to the emergency room today by EMS for diaphoresis and acute on chronic dizziness. When asked to describe the dizziness she states it feels like dancing, like I have no control of my body from the waist down. Upon further questioning, she confirms that she does not have any lightheadedness or vertigo. This morning she felt unsteady on her feet while going to the bathroom and went down to the ground, no significant fall or head injury, but had difficulty getting back onto her feet. Found by sister Tessa who called the ambulance. Lives independently in a town home in [place]. No fevers. Has had nausea/vomiting, intermittent intolerance of po intake. No diarrhea. Has seen her PCP for this (Dr. Parisi), negative CT enterography in his office 12/16/24. She remains on Doxycycline 100mg BID (until March) for her infected prosthesis. ER: - WBC 8.3, 69% PMNs, Hgb 11.3 (baseline 9-10) - ESR 42, CRP 1.4, negative procalcitonin - D-Dimer 2.8, CTA revealed no acute abnormalities, + chronic small airway disease - knee effusion without crepitus or ttp, normal ROM. XR: no hardware complication or fx, small effusion, query gas (possibly artifact). Seen by Ortho in ER who recommend watchful waiting for now Given history, elevated ESR, unsteadiness, patient admitted for PT/OT evaluations, monitoring of knee symptoms and inflammatory markers. Histories updated/reviewed below. Dr. Parisi at [facility] is PCP. Review of Systems Status of ROS: Reports: 10 or more systems reviewed and unremarkable except as noted in History and below [facility] Medical History (Updated 12/19/24 @ 20:20 by Jolly Mendes MD) Restless leg syndrome ?G25.81 - Restless legs syndrome (ICD-10) Dyslipidemia ?E78.5 - Hyperlipidemia, unspecified (ICD-10) Hypothyroidism ?E03.9 - Hypothyroidism, unspecified (ICD-10) Depression ?F32.A - Depression, unspecified (ICD-10) Hypertension ?I10 - Essential (primary) hypertension (ICD-10) Seizure disorder ?G40.909 - Epilepsy, unspecified, not intractable, without status epilepticus (ICD-10) Right-sided low back pain with right-sided sciatica ?M54.41 - Lumbago with sciatica, right side (ICD-10) Spinal stenosis of lumbar region without neurogenic claudication ?M48.061 - Spinal stenosis, lumbar region without neurogenic claudication (ICD-10) Lumbar disc herniation ?M51.26 - Other intervertebral disc displacement, lumbar region (ICD-10) Celiac disease ?K90.0 - Celiac disease (ICD-10) Surgical History (Updated 12/19/24 @ 20:19 by Jolly Mendes MD) Status post left knee surgery (09/11/24) ?Z98.890 - Other specified postprocedural states (ICD-10) History of arthroplasty of left knee (08/14/24) ?Z96.652 - Presence of left artificial knee joint (ICD-10) History of lumbar fusion (03/20/24) ?Z98.1 - Arthrodesis status (ICD-10) History of lumbar laminectomy for spinal cord decompression (02/22/22) ?Z98.890 - Other specified postprocedural states (ICD-10) History of laminectomy (01/14/22) ?Z98.890 - Other specified postprocedural states (ICD-10) History of endometrial ablation (2005) ?Z98.890 - Other specified postprocedural states (ICD-10) History of esophagogastroduodenoscopy (EGD) (08/2014) ?Z98.890 - Other specified postprocedural states (ICD-10) H/O bilateral cataract extraction (1987) ?Z98.41 - Cataract extraction status, right eye (ICD-10) ?Z98.42 - Cataract extraction status, left eye (ICD-10) Status post lumbar spine surgery for decompression of spinal cord (06/18/19) ?Z98.890 - Other specified postprocedural states (ICD-10) History of lumbar fusion (04/26/16) ?Z98.1 - Arthrodesis status (ICD-10) History of hysteroscopy ?Z98.890 - Other specified postprocedural states (ICD-10) History of carpal tunnel surgery of left wrist (09/28/07) ?Z98.890 - Other specified postprocedural states (ICD-10) S/P cervical spinal fusion (03/18/10) ?Z98.1 - Arthrodesis status (ICD-10) History of carpal tunnel surgery of right wrist (07/15/08) ?Z98.890 - Other specified postprocedural states (ICD-10) History of appendectomy (2001) ?Z90.49 - Acquired absence of other specified parts of digestive tract (ICD-10) Social History (Updated 12/19/24 @ 20:22 by Jolly Mendes MD) Narrative: Lives independently, [facility] in [place] Sister patch would be medical decision maker if needed Nonsmoker, no concerning alcohol use Requests DNI status, amenable to trial of CPR What is your current living situation?: I presently have a place to live Problems where you live: no known problems Problems where you live details: na In the past 12 months, utilities in danger of being shut off: no In past 12 months, lack of transportation kept you from medical appts, meetings, work, or getting things needed for daily living: no In the past 12 mos, have been you worried that your food would run out before you had money to buy more?: never true In the past 12 mos, the food you bought just didn't last and you didn't have money to buy more?: never true Highest level of school completed/degree received: 12th grade, no diploma Smoking Status: Never smoker Do you use any of these nicotine containing products: None Second hand tobacco smoke exposure: No How often do you have a drink containing alcohol: monthly or less How many standard drinks containing alcohol do you have on a typical day: 1 or 2 How often do you have six or more drinks on one occasion: Never AUDIT-C Alcohol total score: 1 Non-prescribed substance use: denies use Caffeine: Yes (coffee) How often does anyone, including family, friends and others, physically hurt you: never How often does anyone, including family, friends and others, insult or talk down to you: never How often does anyone, including family, friends and others, threaten you with harm: never How often does anyone, including family, friends and others, scream or curse at you: never Are you using contraception or practicing any form of control: No service: No Meds Home Medications and Allergies Home Medications ?Medication ?Instructions ?Recorded ?Confirmed ?Type duloxetine 20 mg capsule,delayed 40 mg PO DAILY 07/03/22 12/19/24 History release lamotrigine 200 mg tablet,extended 200 mg PO HS 07/03/22 12/19/24 History release 24 hr lamotrigine 250 mg tablet,extended 250 mg PO HS 07/03/22 12/19/24 History release 24 hr meclizine 12.5 mg tablet 12.5 mg PO TID PRN 07/03/22 12/19/24 History atorvastatin 10 mg tablet 10 mg PO QPM 02/28/23 12/19/24 History glucagon 1 mg/0.2 mL subcutaneous 1 mg subcut DAILY PRN 06/28/24 12/19/24 History syringe (Gvoke PFS 1-Pack) ropinirole 0.5 mg tablet 1 mg PO HS 06/28/24 12/19/24 History albuterol sulfate 2.5 mg/3 mL 2.5 mg inhalation Q4H PRN 08/14/24 12/19/24 History (0.083 %) solution for nebulization amlodipine 5 mg tablet 5 mg PO DAILY 08/14/24 12/19/24 History ascorbic acid (vitamin C) 500 mg 500 mg PO DAILY 08/14/24 12/19/24 History tablet cholecalciferol (vitamin D3) 25 50 mcg PO DAILY 08/14/24 12/19/24 History mcg (1,000 unit) tablet ferrous sulfate 325 mg (65 mg 325 mg PO DAILY 08/14/24 12/19/24 History iron) tablet (Feosol) insulin lispro 100 unit/mL 50 - 60 unit subcut DAILY 08/14/24 12/19/24 History subcutaneous solution (Admelog U-100 Insulin lispro) insulin pump cart,auto,BT,G6/7 #5 ea 10/01/24 12/19/24 History (Omnipod 5 G6-G7 Pods (Gen 5) subcutaneous cartridge) Calcium 500 mg PO BID 10/08/24 12/19/24 History Multiple vitamin with iron 1 tab PO DAILY 10/08/24 12/19/24 History furosemide 20 mg tablet 40 mg PO QAM 10/08/24 12/19/24 History doxycycline hyclate 100 mg tablet 100 mg PO BID 10/22/24 12/19/24 History albuterol sulfate 90 mcg/actuation 2 inh inhalation Q4H PRN 12/19/24 12/19/24 History aerosol inhaler aspirin 81 mg tablet,delayed 81 mg PO DAILY 12/19/24 12/19/24 History release lisinopril 10 mg tablet 10 mg PO DAILY 12/19/24 12/19/24 History melatonin 5 mg capsule 5 mg PO HS 12/19/24 12/19/24 History omeprazole 20 mg capsule,delayed 20 mg PO DAILY 12/19/24 12/19/24 History release ondansetron 4 mg disintegrating 4 mg PO Q8H PRN 12/19/24 12/19/24 History tablet pregabalin 150 mg capsule 150 mg PO BID 12/19/24 12/19/24 History Allergies Allergy/AdvReac Type Severity Reaction Status Date / Time wheat Allergy Unknown Dizziness Verified 12/19/24 08:27 ibuprofen Allergy retinal Verified 12/19/24 08:27 hemorrhage penicillin V Allergy Rash Verified 12/19/24 08:27 Exam Narrative: Exam Narrative: GEN: Alert and laying comfortably in bed, answering questions appropriately, nontoxic HEENT: No nystagmus appreciated, + Iridodonesis, oropharynx clear and tongue protrudes midline CV: RRR, No concerning murmurs, no carotid bruits R: LCTA bilaterally without concerning wheezing, air movement adequate Ab: soft, nontender, tolerates palpation Ext: L knee is mildly warmer to the touch than R knee. No crepitus, no ttp, no erythema, no abnormalities around incision Skin: No concerning skin lesions or rashes on exposed skin Neuro: No focal deficits or resting tremor, gait not observed Psych: Appropriate Const: Vital Signs, click to edit/add: Vital Signs - 24 hr 12/19/24 08:28 12/19/24 08:31 12/19/24 08:44 Temperature 98.9 F Pulse Rate 89 Pulse Rate [Left R adial] Pulse Rate [Pulse Oximeter] 87 Respiratory Rate 16 17 Blood Pressure 139/85 Blood Pressure [Ri ght Arm] Blood Pressure [Ri ght Forearm] 139/85 Pulse Oximetry 95 96 87 L Oxygen Delivery Me thod Room Air Room Air Room Air Oxygen Flow Rate 12/19/24 08:45 12/19/24 08:50 12/19/24 09:04 Temperature Pulse Rate 85 92 Pulse Rate [Left R adial] Pulse Rate [Pulse Oximeter] Respiratory Rate 10 L Blood Pressure Blood Pressure [Ri ght Arm] Blood Pressure [Ri ght Forearm] Pulse Oximetry 88 96 95 Oxygen Delivery Me thod Room Air Nasal Cannula Nasal Cannula Oxygen Flow Rate 1 1 12/19/24 09:08 12/19/24 09:32 12/19/24 10:02 Temperature Pulse Rate 85 84 82 Pulse Rate [Left R adial] Pulse Rate [Pulse Oximeter] Respiratory Rate 12 Blood Pressure 155/64 H 143/49 H 127/53 L Blood Pressure [Ri ght Arm] Blood Pressure [Ri ght Forearm] Pulse Oximetry 96 99 97 Oxygen Delivery Me thod Nasal Cannula Nasal Cannula Room Air Oxygen Flow Rate 1 1 12/19/24 10:03 12/19/24 10:15 12/19/24 11:05 Temperature Pulse Rate 87 81 79 Pulse Rate [Left R adial] Pulse Rate [Pulse Oximeter] Respiratory Rate 14 Blood Pressure 135/65 Blood Pressure [Ri ght Arm] Blood Pressure [Ri ght Forearm] Pulse Oximetry 94 92 97 Oxygen Delivery Me thod Room Air Room Air Room Air Oxygen Flow Rate 12/19/24 11:30 12/19/24 12:02 12/19/24 12:30 Temperature Pulse Rate 83 89 82 Pulse Rate [Left R adial] Pulse Rate [Pulse Oximeter] Respiratory Rate 11 L 16 14 Blood Pressure 108/51 L Blood Pressure [Ri ght Arm] Blood Pressure [Ri ght Forearm] Pulse Oximetry 96 92 93 Oxygen Delivery Me thod Room Air Room Air Oxygen Flow Rate 12/19/24 12:45 12/19/24 14:55 12/19/24 15:08 Temperature 97.1 F L Pulse Rate 85 Pulse Rate [Left R adial] 85 Pulse Rate [Pulse Oximeter] Respiratory Rate 15 16 16 Blood Pressure Blood Pressure [Ri ght Arm] 134/49 L Blood Pressure [Ri ght Forearm] Pulse Oximetry 93 96 96 Oxygen Delivery Me thod Room Air Room Air Oxygen Flow Rate Hospitalist - H&P: Result Labs Labs: Short CBC 12/19/24 Range/Units 08:47 WBC 8.30 (4.50-11.00) K/uL Hgb 11.3 L (12.0-16.0) gm/dL Hct 35.6 (33.0-51.0) % Plt Count 290 (140-440) K/uL BMP 12/19/24 08:47 Sodium 142 Potassium 4.1 Chloride 105 Carbon Dioxide 30 BUN 17 Creatinine 0.8 Glucose 121 H Calcium 8.7 Cardiac Enzymes 12/19/24 Range/Units 08:47 Troponin I < 0.01 (0.01-0.04) ng/mL Urine 12/19/24 Range/Units 09:50 Urine Color Light yellow (Yellow) Urine Appearance Clear (Clear) Urine pH 6.0 (5.0-8.5) Ur Specific [place] 1.010 (1.000-1.030) Urine Protein Negative (Negative) Urine Glucose (UA) Negative (Negative)
[2024-12-19] MEDS: rOPINIRole 1 MG TABLET PO (20:15)
[2024-12-19] MEDS: lamoTRIgine 100 MG TABLET 250 MG PO (21:03)
[2024-12-19] MEDS: ATORVASTATIN CALCIUM 10 MG TABLET PO (21:05)
[2024-12-19] MEDS: SODIUM CHLORIDE 0.9 % (FLUSH) 10 ML SYRINGE 5 ML IVF ×2 (21:05→22:30)
[2024-12-19] MEDS: DOXYCYCLINE HYCLATE 100 MG PO (21:05)
[2024-12-19] MEDS: CELECOXIB 100 MG CAPSULE PO (21:05)
[2024-12-19] MEDS: LACOSAMIDE 50 MG TABLET 100 MG PO (21:05)
[2024-12-19] MEDS: PREGABALIN 75 MG CAPSULE 150 MG PO (21:34)
[2024-12-19] MEDS: ONDANSETRON 2 MG/ML inj 4 MG IVP (22:30)
[2024-12-20 03:00] VITALS: BP 127/60; PULSE 77; RESP 18; O2SAT 97
[2024-12-20] MEDS: SODIUM CHLORIDE 0.9 % (FLUSH) 10 ML SYRINGE 5 ML IVF ×2 (05:31→08:45)
[2024-12-20] MEDS: ONDANSETRON 2 MG/ML inj 4 MG IVP (05:31)
[2024-12-20 07:00] VITALS: PULSE 75; RESP 20
--- NOTE | 2024-12-20 07:05 | PC.NURSE ---
End of shift report (): Pt alert, oriented and vitally stable. Pt denies dizziness upon standing. Moves in room independently. Pt had one episode of emesis overnight, 200cc out, prn Zofran given. Pt states this has been recurrent throughout this past week almost nightly, starting with gaging then vomiting. notified (Vaughn), pt on clear liquid diet. Pt stated nausea this morning, prn Zofran given along with q-easy patch. Pt stated improvement. Pt has own insulin pump and Dexcom, reports to nurse appropriately. Pt in bed, appears to be resting, call light within reach.?
[2024-12-20 07:16] LABS: Basophils Absolute Auto 0.04 K/uL (0.00-0.30); Basophils Percent Auto 0.5 % (0.0-3.0); Eosinophils Percent Auto 8.1 % (0.0-7.0); Hematocrit 35.3 % (33.0-51.0); Hemoglobin* 11.2 gm/dL (12.0-16.0); Immature Granulocytes Abs Auto 0.01 K/uL (0.00-0.30); Immature Granulocytes Pct Auto 0.1 %; Lymphocytes Absolute Auto 1.81 K/uL (0.90-2.90); Lymphocytes Percent Auto 23.1 % (20-44); Mean Corpuscular HGB Conc 32 gm/dL (32-36); Mean Corpuscular Hemoglobin 28 pg (26-34); Mean Corpuscular Volume 89 fL (80-100); Monocytes Percent Auto 7.7 % (0.0-11.0); Neutrophils Absolute Auto 4.73 K/uL (1.7-7.0); Neutrophils Percent Auto 60.5 % (42.0-72.0); Platelet Count* 295 K/uL (140-440); RDW Coefficient of Variation % 15.3 % (11.5-15.5); Red Blood Count 3.98 m/uL (4.00-5.20); White Blood Count* 7.82 K/uL (4.50-11.00)
[2024-12-20 07:19] LABS: Chloride* 102 mmol/L (96-114); Sodium* 139 mmol/L (135-149)
[2024-12-20 07:20] LABS: Albumin* 3.4 g/dL (3.3-5.0); Potassium* 3.4 mmol/L (3.6-5.1)
[2024-12-20 07:23] LABS: Alanine Aminotransferase* 16 U/L (4-35); Alkaline Phosphatase* 160 U/L (40-150); Anion Gap 5 mEq/L (7-15); Aspartate Amino Transferase* 25 U/L (12-35); Bilirubin Total* 0.4 mg/dL (0.1-1.5); Blood Urea Nitrogen* 21 mg/dL (7-30); Carbon Dioxide* 32 mmol/L (20-32); Creatinine* 0.8 mg/dL (0.5-1.5); Est. Creatinine Clearance* 57.07; Estimated Glomerular Filt Rate 87 ml/min; Glucose* 153 mg/dL (60-115); Total Protein* 6.5 g/dL (6.0-8.3)
[2024-12-20 07:26] LABS: C Reactive Protein* 2.6 mg/dL (0.5-1.0)
[2024-12-20 07:29] LABS: Slide Review Reflex No
[2024-12-20 08:00] VITALS: BP 142/58; PULSE 75; PULSE 80; RESP 20; TEMP 36.4; O2SAT 99
[2024-12-20] MEDS: PROCHLORPERAZINE 10 MG TABLET PO (08:41)
[2024-12-20] MEDS: lamoTRIgine 100 MG TABLET 200 MG PO (08:47)
[2024-12-20] MEDS: ASPIRIN 81 MG TABLET EC PO (08:48)
[2024-12-20] MEDS: CELECOXIB 100 MG CAPSULE PO (08:48)
[2024-12-20] MEDS: DOXYCYCLINE HYCLATE 100 MG PO (08:48)
[2024-12-20] MEDS: AMLODIPINE 5 MG TABLET PO (08:48)
[2024-12-20] MEDS: LACTOBACILLUS ACIDOPHILUS 1 TABLET 1 TAB PO ×2 (08:48→12:24)
[2024-12-20] MEDS: DULOXETINE HCL 20 MG CAPSULE DR 40 MG PO (08:48)
[2024-12-20] MEDS: OMEPRAZOLE 20 MG CAPSULE DR PO (08:48)
[2024-12-20] MEDS: lisinopriL 10 MG TABLET PO (08:49)
[2024-12-20] MEDS: LACOSAMIDE 50 MG TABLET 100 MG PO (08:49)
[2024-12-20] MEDS: FUROSEMIDE 20 MG TABLET 40 MG PO (08:49)
[2024-12-20] MEDS: PREGABALIN 75 MG CAPSULE 150 MG PO (08:51)
[2024-12-20 09:21] LABS: Erythrocyte SedimentationRate* 43 mm/hr (2-20)
--- NOTE | 2024-12-20 10:27 | P.DS_ITS ---
DS: Providers Provider Date Seen: 12/20/24 Date of admission: 12/19/24 14:35 Primary care physician: David Parisi MD Admitting Clinician: oJlly Mendes MD Consults: 12/19/24 15:13 Consult to Physical Therapy [CONS] Routine Comment: Reason(s) for PT Consult:: Evaluate and Treat Any Restrictions?:: No Restrictions Consult to Product Development Actuary [CONS] Routine Comment: Reason for Consult:: Discharge Planning Needs 12/19/24 15:15 Consult to Occupational Therapy [CONS] Routine Comment: Reason(s) for OT Consult:: Evaluate and Treat Any Restrictions?:: No Restrictions Comment: dizziness Attending Physician on discharge: DAMARIS Ware, [facility] Date of Discharge: 12/20/24 DS: Diagnosis Discharge Diagnosis (1) Effusion of knee joint, left: Status: Acute Problem details: - baseline vs early infectious/inflammatory process (reassuring CBC, VS) - follow CBC, inflammatory markers - continue Doxycycline, not adding additional antibiotics upon admission given stability Observed overnight, remains clinically stable. No leukocytosis. CRP remains < 5. ESR essentially unchanged. Remained afebrile. Orthopedic surgery evaluated in the ED, had recommended observation as well rather than initiation of further antibiotics or aspiration. No strong concern for gas-forming infection. Patient remained ambulatory, no increasing pain. She is discharged to home. Outpatient follow-up with PCP. Continue course of doxycycline through March. Outpatient follow-up with Orthopedics as needed. (2) Nausea and vomiting: Status: Acute Problem details: - noted intermittently over the past 2 weeks, negative CT enterography on 12/16/2024 with PCP - hungry and requesting regular diet on admission 12/19/2024 - query iatrogenic from doxycycline - has been taking since September, will add probiotics Mildly nauseous the morning after admission however ordered a full breakfast including an omelette which she tolerated without vomiting. No recent medicati on changes per patient report. In addition to above, could be viral component. Has been followed by PCP. Discharge to home with Compazine as needed. Outpatient follow-up with PCP if recurs or persists. (3) Vertigo: Status: Acute Problem details: - upon further questioning, sounds more like restless leg syndrome than any intracerebral symptom - will request PT and OT evaluations No vertiginous symptoms on admission or the morning after. Admits to some mild vertigo like symptoms, including running into things with her walker the last couple of days prior to admission. PT/OT to evaluate, maneuver if necessary. (4) Status post left knee surgery: Status: Acute Problem details: - left knee I&D for abscess formation (09/06 and 09/11/2024, Dr. Renner) after knee replacement in August of 2024 - on doxycycline BID and will continue this through March according to EMR (5) Restless leg syndrome: Status: Acute Problem details: - continue home medications Continues to be symptomatic, especially in the evenings. Will lower herself to the ground on her knees, typically able to get up on her own. Could be source of ongoing effusion as well. Continue management with PCP. (6) Type I diabetes mellitus: Status: Acute Problem details: -insulin pump and Dexcom -A1C 7.0 on 11/28/24 (7) Pulmonary nodule: Status: Acute Problem details: - CT shows stable few solid pulmonary nodules of less than 6 mm. Outpatient follow-up with PCP DS: Summary Hospital Course Hospital Course: [age] year old female was admitted to the medical floor following recent nausea with vomiting intermittently over the last 2 weeks. Course of care and details as noted above. Hydrated with IVF. Tolerating orals including regular diet without further nausea vomiting. Previously evaluated by PCP. Labs rather unremarkable. Intermittent vertigo symptoms reported as well. PT/OT evaluated. Discharged home with Compazine as needed. Outpatient follow-up with PCP. Knee effusion noted, orthopedic surgery evaluated. Patient reports she did not fall but has been lowering herself to the floor on her knees when her RLS kicks in in the evenings. This is chronic. No compelling indicators for acute infection. Will continue on current course of doxycycline. Remainder of chronic medical comorbidities were monitored and managed with home medications. Status at Discharge Functional status at discharge: uses cane/walker Overall status at discharge: patient is back to baseline Time Spent with Patient Time attestation: Total time spent providing and/or coordinating discharge services: Time spent: Greater than 30 minutes Exam Narrative: Exam Narrative: PHYSICAL EXAM General: Pleasant, conversant, NAD Cardiovascular: RRR Pulmonary: No dyspnea Neurological: Alert, answering questions appropriately Skin: Warm, dry. Const: Vital Signs, click to edit/add: Vital Signs - 24 hr 12/19/24 11:05 12/19/24 11:30 12/19/24 12:02 Temperature Pulse Rate 79 83 89 Pulse Rate [Left R adial] Pulse Rate [Pulse Oximeter] Respiratory Rate 11 L 16 Blood Pressure 135/65 108/51 L Blood Pressure [Ri ght Arm] Pulse Oximetry 97 96 92 Oxygen Delivery Me thod Room Air Room Air Room Air 12/19/24 12:30 12/19/24 12:45 12/19/24 14:55 Temperature 97.1 F L Pulse Rate 82 85 Pulse Rate [Left R adial] 85 Pulse Rate [Pulse Oximeter] Respiratory Rate 14 15 16 Blood Pressure Blood Pressure [Ri ght Arm] 134/49 L Pulse Oximetry 93 93 96 [facility] 12/19/24 15:08 12/19/24 17:19 12/19/24 19:00 Temperature 97.6 F Pulse Rate 83 Pulse Rate [Left R adial] Pulse Rate [Pulse Oximeter] 87 Respiratory Rate 16 18 Blood Pressure Blood Pressure [Ri ght Arm] 122/55 L Pulse Oximetry 96 95 [facility] Room Air 12/19/24 23:00 12/19/24 23:00 12/19/24 23:00 Temperature 97.6 F Pulse Rate 82 Pulse Rate [Left R adial] Pulse Rate [Pulse Oximeter] 82 82 Respiratory Rate 18 18 Blood Pressure Blood Pressure [Ri ght Arm] 121/54 L Pulse Oximetry 97 [facility] 12/20/24 03:00 12/20/24 07:00 12/20/24 08:00 Temperature Pulse Rate 80 Pulse Rate [Left R adial] Pulse Rate [Pulse Oximeter] 77 75 Respiratory Rate 18 20 Blood Pressure Blood Pressure [Ri ght Arm] 127/60 Pulse Oximetry 97 Oxygen Delivery [facility] 12/20/24 08:00 Temperature 97.6 F Pulse Rate Pulse Rate [Left R adial] Pulse Rate [Pulse Oximeter] 75 Respiratory Rate 20 Blood Pressure Blood Pressure [Ri ght Arm] 142/58 H Pulse Oximetry 99 [facility] DS: Data Data Completed and Pending Completed studies during hospitalization: Procedures Drainage of Left Knee Joint, Open Approach (09/06/24) Drainage of Left Knee Joint, Open Approach, Diagnostic (09/06/24) Excision of Left Lower Leg Subcutaneous Tissue and Fascia, Open Approach (09/06/24) Insertion of Infusion Device into Superior Vena Cava, Percutaneous Approach (09/06/24) Introduction of Other Anti-infective into Central Vein, Percutaneous Approach (09/06/24) Introduction of Other Anti-infective into Joints, Open Approach (09/06/24) Introduction of Other Gas into Respiratory Tract, Via Natural or Artificial Opening (09/06/24) Removal of Articulating Spacer from Left Knee Joint, Open Approach (09/06/24) Removal of Liner from Left Knee Joint, Open Approach (09/06/24) Replacement of Left Knee Joint with Articulating Spacer, Open Approach (09/06/24) Replacement of Left Knee Joint with Synthetic Substitute, Cemented, Open Approach (08/15/24) Supplement Left Knee Joint with Liner, Open Approach (09/06/24) Labs on day of discharge: Labs from last 24 hours 12/20/24 06:38 WBC 7.82 RBC 3.98 L Hgb 11.2 L Hct 35.3 MCV 89 MCH 28 MCHC 32 RDW Coeff of Eliud 15.3 Plt Count 295 Neut % (Auto) 60.5 Lymph % (Auto) 23.1 [place] % (Auto) 7.7 Eos % (Auto) 8.1 H Baso % (Auto) 0.5 Neut # (Auto) 4.73 Lymph # (Auto) 1.81 [place] # (Auto) 0.60 Eos # (Auto) 0.60 H Baso # (Auto) 0.04 Abs Immat Gran (auto) 0.01 Imm/Tot Granulo (auto) 0.1 ESR 43 H Sodium 139 Potassium 3.4 L Chloride 102 Carbon Dioxide 32 Anion Gap 5 L BUN 21 Creatinine 0.8 Estimated Creat Clear 57.07 Estimated GFR 87 Glucose 153 H Calcium 9.0 Total Bilirubin 0.4 AST 25 ALT 16 Alkaline Phosphatase 160 H C-Reactive Protein 2.6 H Total Protein 6.5 Albumin 3.4 Preliminary micro results at discharge 12/19/24 09:40 Blood Culture - Preliminary Blood NO GROWTH AFTER 24 HOURS Imaging CTA chest: Attestation: I have reviewed the pertinent imaging results. Radiologist's impression: Heart and vasculature: Contrast opacification of the pulmonary arterial tree is adequate. No sign of pulmonary embolism. Mild cardiomegaly without pericardial effusion. Thoracic aorta and pulmonary artery are of normal caliber. Lungs and pleura: Small 4 millimeter right upper lobe pulmonary nodule (5/66) and right middle lobe pulmonary nodule 4 millimeter (5/97) solid nodule of 4 millimeter at the left lung base (/89 are similar to previous CT. No new or concerning lung nodule. Scattered mosaic attenuation of the lung parenchyma. No pleural effusion or pneumothorax. Lymph nodes/mediastinum: No suspicious mediastinal or hilar lymph nodes by size criteria. Circumferential esophageal wall thickening can be seen with esophagitis in the appropriate clinical settings. Upper abdomen: Evaluation is limited by streak artifact. Bones: Multilevel degenerative changes of the spine. Posterior spinal fusion of T12 through lower lumbar spine is seen. No acute osseous abnormality. IMPRESSION: 1. No pulmonary embolism or acute cardiopulmonary process. 2. Nonspecific mosaic attenuation of the lung parenchyma, which can be seen with chronic small vessel or small airway disease. 3. Stable few solid pulmonary nodules of less than 6 mm. [employer] GUID[employer]INES - SOLID NODULES: MULTIPLE LOW RISK - nodule less than 6 mm: No routine follow-up. -nodule 6-8 mm: CT at 3-6 months, then consider CT at 18-24 months. -nodule greater than 8 mm: CT at 3-6 months, then consider CT at 18-24 months. MULTIPLE HIGH RISK - nodule less than 6 mm: Optional CT at 12 months. -nodule 6-8 mm: CT at 3-6 months, then at 18-24 months. -nodule greater than 8 mm: CT at 3-6 months, then at 18-24 months. Knee x-ray: Attestation: I have reviewed the pertinent imaging results. Radiologist's impression: Unchanged position and alignment of the left knee prosthesis. Hardware is intact and without periprosthetic lucency or fracture. Osseous demineralization. Generalized soft tissue swelling along the lateral and anterior aspect of the knee. Small knee joint effusion. Query linear focus of soft tissue gas along the medial aspect of the patella on sunrise view. Impression: 1. Unchanged alignment of the left knee prosthesis. No evidence of hardware complication. 2. No displaced periprosthetic fracture. 3. Small knee joint effusion and prepatellar/lateral knee soft tissue swelling. Questionable small focus of soft tissue gas along the medial aspect of the patella on sunrise view. While findings may be artifactual, differential considerations include soft tissue laceration versus gas-forming infection. Dictated by Lali Rondon MD @ 12/19/2024 11:05:34 AM ----- ADDENDUM ----- Confirmed report was received by Dr. Rangel on 12/19/2024 at 11:13 a.m. Dictated by Lali Rondon MD @ Dec 19 2024 11:14AM (Electronically Signed) For Patients: As a result of the Cures Act, medical imaging exams and procedure reports are released immediately into your electronic medical record. You may view this report before your referring provider. If you have questions, please contact your health care provider. Indication: Left knee warmth, history of infection, also fall today Technique: Three view(s) of the left knee. Comparison: 10/22/2024. Findings: Unchanged position and alignment of the left knee prosthesis. Hardware is intact and without periprosthetic lucency or fracture. Osseous demineralization. Generalized soft tissue swelling along the lateral and anterior aspect of the knee. Small knee joint effusion. Query linear focus of soft tissue gas along the medial aspect of the patella on sunrise view. Impression: 1. Unchanged alignment of the left knee prosthesis. No evidence of hardware complication. 2. No displaced periprosthetic fracture. 3. Small knee joint effusion and prepatellar/lateral knee soft tissue swelling. Questionable small focus of soft tissue gas along the medial aspect of the patella on sunrise view. While findings may be artifactual, differential considerations include soft tissue laceration versus gas-forming infection. CT scan - head: Attestation: I have reviewed the pertinent imaging results. Radiologist's impression: The brain shows no sign of mass lesion, mass effect, hemorrhage, or edema. Sulci and ventricles are normal in appearance for patient age. The visualized portions of the orbits are normal in appearance. The osseous structures are normal in appearance with no sign of abnormality in the skull base or calvarium. Multiple dural-based calcifications are incidentally noted. IMPRESSION: No acute findings. Chest x-ray: Attestation: I have reviewed the pertinent imaging results. Radiologist's impression: FINDINGS/ IMPRESSION: No focal consolidation, effusion or pneumothorax. Cardiac size is within normal limit without pulmonary edema. Posterior spinal fusion of T12 to lumbar spines are present. Discharge Plan Discharge Disposition: Home, Self-Care Date of Admission: 12/19/24 14:35 Attending Provider on Discharge: Mary Lou Brown Primary Care Provider: David Parisi Condition: Improved Anticipated Discharge Date/Time: 12/20/24 14:00 Discharge Medications: New prochlorperazine maleate [Compazine] 10 mg tablet 10 mg PO Q8H PRNQty: 15 0RF Continued lamotrigine 250 mg tablet extended release 24hr 250 mg PO HS Rx Instructions: total of 450mg at HS lamotrigine 200 mg tablet extended release 24hr 200 mg PO HS duloxetine 20 mg capsule,delayed release(DR/EC) 40 mg PO DAILY meclizine 12.5 mg tablet 12.5 mg PO TID PRN doxycycline hyclate 100 mg tablet 100 mg PO BID (DME) Omnipod 5 G6-G7 Pods (Gen 5) Cartridge See Rx Instructions subcut .MEDSUPPLY Qty: 5 Rx Instructions: As directed furosemide 20 mg tablet 40 mg PO QAM Multiple vitamin with iron 1 tab PO DAILY Calcium 500 mg PO BID Gvoke PFS 1-Pack Syringe 1 mg/0.2 mL syringe 1 mg subcut DAILY PRN ropinirole 0.5 mg tablet 1 mg PO HS atorvastatin 10 mg tablet 10 mg PO QPM ascorbic acid (vitamin C) 500 mg tablet 500 mg PO DAILY albuterol sulfate 2.5 mg /3 mL (0.083 %) solution for nebulization 2.5 mg inhalation Q4H PRN amlodipine 5 mg tablet 5 mg PO DAILY ferrous sulfate [Feosol] 325 mg (65 mg iron) tablet 325 mg PO DAILY cholecalciferol (vitamin D3) 25 mcg (1,000 unit) tablet 50 mcg PO DAILY insulin lispro [Admelog U-100 Insulin lispro] 100 unit/mL solution 50 - 60 unit subcut DAILY Rx Instructions: SUBQ PUMP celecoxib 100 mg capsule 100 mg PO BID Qty: 60 0RF zolpidem 5 mg Tablet 5 mg PO HS PRN30 Days Qty: 30 1RF lacosamide 100 mg tablet 100 mg PO BID Qty: 60 0RF melatonin 5 mg capsule 5 mg PO HS aspirin 81 mg tablet,delayed release (DR/EC) 81 mg PO DAILY albuterol sulfate 90 mcg/actuation HFA aerosol inhaler 2 inh inhalation Q4H PRN lisinopril 10 mg tablet 10 mg PO DAILY omeprazole 20 mg capsule,delayed release(DR/EC) 20 mg PO DAILY ondansetron 4 mg tablet,disintegrating 4 mg PO Q8H PRN pregabalin 150 mg capsule 150 mg PO BID Discharge Orders: Discharge Order (Routine); Ordered 12/20/24 Ordered By: Mary Lou Brown Patient Education: Acute Nausea and Vomiting (GEN) Activity Level: Activity as Tolerated Discharge Diet: Regular Follow Up Appointments: David Parisi MD [Primary Care Provider] - (follow up as needed ) Forms: [employer] Info Instructions
--- NOTE | 2024-12-20 11:17 | REH.PT ---
Orders for PT Eval & Treat received. Chart reviewed. Pt no longer feeling dizzy and nauseated. Demo's ind gait with 4ww and without an AD community distances. Completed stair amb with hand rail support and alternating gait pattern. Skilled PT not warranted at this time. D/C PT. No Charge.
[2024-12-20 11:23] VITALS: BP 142/69; PULSE 91; RESP 18; O2SAT 95
[2024-12-20] MEDS: FERROUS SULFATE 325 MG TABLET PO (12:24)
[2024-12-20] MEDS: INSULIN ASPART 100 UNIT/ML SUBCUT ×2 (12:27→13:34)
--- NOTE | 2024-12-20 14:14 | PC.NURSE ---
Nursing discharge note: Pt has been A&O, afebrile and VSS on day of discharge. Has intermittent c/o nausea but no emesis today and she?s been able to eat full meals on a regular diet. Ambulating independently with no severe c/o vertigo/dizziness. Pt started on PRN compazine this morning & tolerated it well. Blood sugars obtained from Dexcom & insulin administered via pump. See flowsheet & MAR for BG levels and insulin bolus amounts. Pt has been continent of bladder today, no BM. TELE read NSR. PIV removed from left AC, catheter intact. Pt discharged home with her sister at 1400.?
== END 2024-12-20 14:00 | disposition home or self-care (01) ==
LOC: ED 10:18 → MEDSURG 14:36
PROVIDERS: Family Medicine; Admitting Provider Orthopaedic Surgery; Emergency Provider Emergency Medicine; PCP Surgery; Visit Provider Orthopaedic Surgery
DX: R42 Dizziness and giddiness (principal); R26.81 Unsteadiness on feet; E10.65 Type 1 diabetes mellitus with hyperglycemia; M25.462 Effusion, left knee; W19.XXXA Unspecified fall, initial encounter; R11.2 Nausea with vomiting, unspecified; Z96.642 Presence of left artificial hip joint; G25.81 Restless legs syndrome; Z96.41 Presence of insulin pump (external) (internal); R91.1 Solitary pulmonary nodule; I10 Essential (primary) hypertension; E78.5 Hyperlipidemia, unspecified; Z79.82 Long term (current) use of aspirin; G40.909 Epilepsy, unspecified, not intractable, without status epilepticus; K21.9 Gastro-esophageal reflux disease without esophagitis; Z98.890 Other specified postprocedural states
CPT/HCPCS: 36415; 70450; 71046; 71275; 73562; 80048; 80053; 81001; 82962; 83880; 84145; 84484; 85025; 85379; 85651; 86140; 87040; 87631; 93005; 96374; 96376; 97165; 99285; A9270; G0378; J2405; Q9967

== ENCOUNTER 2024-12-30 08:35 | Outpatient (CLI) | payer MEDICARE, MEDICAID, SELFPAY | END 2024-12-30 08:36 | disposition home or self-care (01) | PROVIDERS: PCP Surgery; Visit Provider Internal Medicine | DX: S89.91XA Unspecified injury of right lower leg, initial encounter (principal); S09.90XA Unspecified injury of head, initial encounter; W00.2XXA Other fall from one level to another due to ice and snow, initial encounter; Y92.481 Parking lot as the place of occurrence of the external cause | CPT/HCPCS: A0425; A0427 ==

== ENCOUNTER 2024-12-30 09:10 | Emergency (ER) | payer MEDICARE, MEDICAID, SELFPAY ==
[2024-12-30] VITALS (36 sets, daily range): BP systolic 93–141; BP diastolic 48–114; PULSE 90–144; RESP 12–37; TEMP 36.4; O2SAT 89–100; BMI 40.2
--- OUTSIDE RECORDS SUMMARY | 2024-12-30 09:14 | XMS_ITS | Encounter Summary ---
Author Organization [facility] Address [address] [place] [id number] Care Team Providers Care Platform Supervisor Name Role Phone David Parisi MD Primary Care Provider Uriel Mercedes MD Unavailable Brandon Parikh MD Unavailable Reason for Visit * Reason Onset Date Comments Appointment 09/18/2024 Encounter Details Date Type Department Care Team (Late st Contact Info) Description 09/18/2024 Telephone [facility] [place] [address] 4[address] [place] [address] Uriel Mercedes MD [address] [place], [place] [address] Appointment Social History Tobacco Use Types Packs/Day [...] on file 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 Gender Identity Not on file Sexual [...] we send this information to you in [facility] or would you prefer to receive a phone call?: Patient would prefer a phone call Okay to leave a detailed message?: Yes at Cell number on file: Telephone Information: OR FINANCIAL ANALYST documented in this encounter Plan of Treatment Upcoming Encounters Date Type Department Care Team (Late st Contact Info) Description 05/29/2025 9:40 AM CDT Ancillary Procedure [facility] [address] 1st [place] [phone] Uriel Mercedes MD [address] [place] [phone] 05/29/2025 10:40 AM CDT Office Visit [facility] [address] 4th [place] [phone] Uriel Mercedes MD [address] [place] [phone] documented as of this encounter Visit Diagnoses Not on filedocumented in this encounter Care Teams Platform Supervisor Relationship Specialty Start Date End Date David Parisi MD [address] [place] [id number] PCP - General 03/16/23 Uriel Mercedes MD [address] [place] [id number] Assigned Musculoskeletal Provider 03/25/23 Brandon Parikh MD [address] [place], [place] [phone] Assigned Neuroscience Provider 04/29/23 11/23/24 documented as of this encounter
--- OUTSIDE RECORDS SUMMARY | 2024-12-30 09:14 | XMS_ITS | Encounter Summary ---
Author Organization [facility] Address [address] [place] [address] Care Team Providers Care Sole Cementer Name Role Phone David Parisi MD Primary Care Provider [phone] Uriel Mercedes MD Unavailable [phone] Reason for Visit * Diagnostic Imaging XR (Routine) - Pending Review Specialty Diagnoses / Procedures Referred By Contac t Referred To Contact Radiology. Diagnoses S/P spinal fusion Herniated lumbar intervertebral disc History of fusion of cervical spine Status post lumbar spinal fusion Procedures XR EOS Total Body Uriel Mercedes MD [address] [place] [phone] Phone: tel: fax: Referral ID Status Reason Start Date Expiration Date V isits Requested Visits Authorized [id number] Pending Review 11/13/2024 11/13/2025 1 1 Encounter Details Date Type Department Care Team (Latest Contact Info) Description 12/05/2024 8:20 AM INFORMATION SYSTEMS OPERATOR Ancillary Procedure [facility] X[facility] [place] [address]st [place] [phone] Uriel Mercedes MD [address] [place] [phone] S/P spinal fusion; Herniated lumbar intervertebral disc; [...] on file 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 Gender Identity Not on file Sexual Orientation Not on file documented as of this encounter Plan of Treatment Upcoming Encounters Date Type Department Care Team (Late st Contact Info) Description 05/29/2025 9:40 AM CDT Ancillary Procedure [facility] [address] 1st [place] [phone] Uriel Mercedes MD [address] [place] [phone] 05/29/2025 10:40 AM CDT Office Visit [facility] [address] 4th [place] [phone] Uriel Mercedes MD [address] [place] [phone] documented as of this encounter Procedures Procedure Name Priority Date/Time Associated Diagnosis Comments XR EOS TOTAL BODY Routine 12/05/2024 9:1 8 AM INFORMATION SYSTEMS OPERATOR S/P spinal fusion Herniated lumbar intervertebral disc History of fusion of cervical spine Status post lumbar spinal fusion documented in this encounter Results * XR EOS Total Body (12/05/2024 9:18 AM INFORMATION SYSTEMS OPERATOR) Anatomical Region Laterality Modality Spine, Lower Extremity Computed Radiography Impressions 12/05/2024 1:22 PM INFORMATION SYSTEMS OPERATOR Impression: 1. Stable ACDF and posterior fusion at C5-C7 and posterior T12 the pelvis instrument fusion without evidence of hardware complication. Slightly increased opposing endplate degenerative changes at T11-T12. 2. No global sagittal or coronal imbalance. 3. Weight bearing axis as detailed above. EBONY WRIGHT MD Narrative 12/05/2024 1:22 PM INFORMATION SYSTEMS OPERATOR Exam: Full body radiographs using EOS History: [...] No substantial global coronal imbalance. Sagittal Vertical United (A vertical line drawn from the center [...] No substantial global coronal imbalance. Sagittal Vertical [place] (A vertical line drawn from the center [...] status documented in this encounter Care Teams Sole Cementer Relationship Specialty Start Date End Date David Parisi MD [address] [place] [address] PCP - General 03/16/23 Uriel Mercedes MD [address] [place] [address] Assigned Musculoskeletal Provider 03/25/23 documented as of this encounter
--- OUTSIDE RECORDS SUMMARY | 2024-12-30 09:14 | XMS_ITS | Encounter Summary ---
Author Organization [place] Address [facility] [address] Care Team Providers Care Corpsman Name Role Phone David Parisi MD Primary Care Provider [phone] Uriel Mercedes MD Unavailable [phone] Brandon Parikh MD Unavailable Reason for Visit * Reason Onset Date Comments Prior Auth - Medication 04/27/2023 LamoTRIg ine (LAMICTAL) 200 MG ER tablet - APPROVED Encounter Details Date Type Department Care Team (Late st Contact Info) Description 04/27/2023 Telephone [facility] [address] [phone] [place] [address] [place] [id number] Prior Auth - Medication (LamoTRIgine (LAMICTAL) [...] on file 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 Gender Identity Not on file Sexual [...] Dose/Quantity: 30 FOR 30 DAYS Insurance Company: [employer] - Which Pharmacy is filling the prescription: [facility] [place], [place] - [facility] Notified: YES Patient Notified: [...] ER 200 MG PO TB24 Insurance Company: [employer] - Pharmacy Filling the Rx: [...] Procedure [facility] [address] [facility] [address] [place] [phone] Uriel Mercedes MD [address] [address] 05/29/2025 10:40 AM CDT Office Visit [facility] [place] [id number] [facility] [address] 4[address] [place] [phone] Uriel Mercedes MD [address] [place] [id number] documented as of this encounter Visit Diagnoses Not on filedocumented in this encounter Care Teams Corpsman Relationship Specialty Start Date End Date David Parisi MD [address] [place] [address] PCP - General 03/16/23 Uriel Mercedes MD [address] [place] [id number] Assigned Musculoskeletal Provider 03/25/23 Brandon Parikh MD [address] [place] [address] Assigned Neuroscience Provider 04/29/23 11/23/24 documented as of this encounter
--- OUTSIDE RECORDS SUMMARY | 2024-12-30 09:14 | XMS_ITS | Clinical Summary ---
Author Organization [employer] [facility] Address [address] [place] [address] Care Team Providers Care Gold Beater Name Role Phone Bernadette Cabrera MD Primary Care Provider [phone] [facility], [place] Unavailable Allergies Active Allergy Reactions Criticality Noted [...] meal. Active lamoTRIgine (LAMICTAL XR) 250 mg te25Oparnmcvztd:S eizure disorder (HC) Take 1 tablet by [...] Encounters Date Type Department Care Team Description 12/30/2024 7:20 AM CDT Office Visit [facility] [address] [place] [address] Jacinta Coley PA Fall 12/30/2024 Travel 12/19/2024 Orders Only [facility] Scanner 1 scan: (1-Ord) [place], ADDENDUM, XR KNEE LT 3V, 12/19/2024 12/19/2024 Orders Only [facility] Scanner 1 scan: (1-Ord) [place], CT ANGIO CHEST PE PROTOCOL, 12/19/2024 12/19/2024 Orders Only [facility] Scanner 1 scan: (1-Ord) [place], XR KNEE LT 3V, 12/19/2024 12/19/2024 Orders Only [facility] Scanner 1 scan: (1-Ord) [facility], HEAD,BRAIN W/O CONTRAST, 12/19/2024 12/18/2024 Telephone [facility] [address] [place] [address] Bernadette Cabrera MD Form 12/16/2024 9:42 AM CDT - 12/16/2024 11:59 PM CDT Hospital Encounter 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 No fever hasn't been able to eat much trying to drink lots of fluid ) 12/13/2024 Telephone [facility] [address] [place] [address] Bernadette Cabrera MD Results; Follow Up 12/13/2024 Travel 12/12/2024 Nurse Triage [facility] [address] [place] [address] Bernadette Cabrera MD Questions (question ) 12/03/[address] [address] Padmini Sena MD Lab 12/02/2024 Telephone [facility] [address] [place] [address] Bernadette Cabrera MD Follow Up (Fax) 12/02/2024 Telephone [facility] [address] [place] [address] Bernadette Cabrera MD Results 11/28/2024 9:50 AM DIRECTOR OF SEARCH ENGINE MARKETING Office Visit [facility] [address] [place] [address] Bernadette Cabrera MD Lab; Diabetes 11/28/2024 Travel 11/20/[address] [address] Padmini Sena MD Questions (Infection ) 11/20/2024 Travel 11/19/2024 9:00 AM DIRECTOR OF SEARCH ENGINE MARKETING Phone Office Visit [address] [address] Padmini Sena MD 11/15/2024 10:30 AM DIRECTOR OF SEARCH ENGINE MARKETING Orders [place] [address] [place] [address] Lab, [facility] Lab 11/15/2024 Travel 11/06/2024 Refill [facility] [address] [place] [address] Bernadette Cabrera MD Refill Request (Meclizine) 11/02/2024 Refill [facility] [address] [place] [address] Bernadette Cabrera MD Refill Request (Duloxetine, Zolpidem) 10/30/[address] [address] Padmini Sena MD Lab (Infection) 10/28/2024 9:00 AM DIRECTOR OF SEARCH ENGINE MARKETING Ancillary Procedure [facility] [address] [place] [address] 10/28/2024 Travel 10/15/2024 10:05 AM DIRECTOR OF SEARCH ENGINE MARKETING Office Visit [facility] [address] [place] [address] Bernadette Cabrera MD Follow Up 10/15/2024 Orders Only [facility] Scanner 1 scan: (1-Ord) [facility], MULTIPLE LABS, 10/15/2024 10/15/2024 Telephone [facility] [address] [place] [address] Bernadette Cabrera MD Medication Management (Antibiotics/) 10/15/2024 Travel 10/14/[address] [address] Padmini Sena MD Lab (Orders request) 10/11/2024 Telephone [facility] [address] [place] [address] Bernadette Cabrera MD Questions (Medication ) 10/10/2024 10:00 AM DIRECTOR OF SEARCH ENGINE MARKETING Phone Office Visit [address] [address] Padmini Sena MD Follow Up; Infection (Left Knee post-op); Phone Visit 10/10/2024 Refill [facility] [address] [facility] [address] Bernadette Cabrera MD Refill Request (Furosemide) 10/10/2024 Travel 10/08/2024 Orders Only [facility] Scanner 1 scan: (1-Ord) [facility], MULTIPLE LAB RESULTS, 10/08/2024 10/07/2024 10:45 AM DIRECTOR OF SEARCH ENGINE MARKETING Office Visit [facility] [address] [place] [address] Bernadette Cabrera MD Follow Up; Medication Management (Lasix 40 mg in the morning and 20 mg in the afternoon) 10/07/2024 Travel from Last 3 Months Immunizations Immunization Administration [...] on file Legal Sex Female 5:31 AM DIRECTOR OF SEARCH ENGINE MARKETING Gender Identity Not on file Sexual Orientation Not on file Occupation Industry Job Start Date Job End Date DISABLED Not on file Not on file Not on file Obstetrics History Last Filed Vital Signs Vital Sign Reading Time Taken Comments Blood Pressure 106/78 12/30/2024 7:55 AM CDT Pulse 144 12/30/2024 7:55 AM CDT Temperature 36.7 C (98 F) 09/04/2024 3:13 PM DIRECTOR OF SEARCH ENGINE MARKETING Respiratory Rate 16 02/20/2023 9:36 AM CDT Oxygen Saturation 98% 12/30/2024 7:55 AM CDT Inhaled Oxygen Concentration - - Weight 79.2 kg (174 lb 11.2 oz) 12/13/2024 8:50 AM CDT Height 153.4 cm (5' 0.4) 09/02/2024 8:24 AM DIRECTOR OF SEARCH ENGINE MARKETING Body Mass Index 33.67 09/02/2024 8:24 AM DIRECTOR OF SEARCH ENGINE MARKETING Plan of Treatment Upcoming Encounters Date Type Department Care Team (Late st Contact Info) Description 01/16/2025 9:00 AM CDT Orders Only [facility] [address] [place] [address] Lab, [place] 01/21/2025 9:00 AM CDT Phone Office Visit [facility] [address] [address] Padmini Sena MD [address] [place] [address] 03/06/2025 9:00 AM CDT Office Visit [facility] [address] [place] [address] Bernadette Cabrera MD [address] [place] [address] Health Maintenance Due Date Last Done Comments Mammogram for age 45-75 02/26/2025 02/27/20 24, 11/08/2022, 06/29/2021, Additional history exists Pap test for age 21-65 06/09/2025 , 06/09/2020, 03/30/2017, Additional history exists BMI (ht and wt on same day) for age 18+ 09/02/2025 09/02/2024, 10/31/2022, 12/11/2020, Additional history exists Depression screening for age 12+ 12/02/2025 12/02/2024, 12/02/2024, 11/28/2024, Additional history exists Fecal testing sDNA-FIT ([place] guard) for age 45-75 08/20/2026 08/20/2023, 07/25/2020 [...] IN PREFERRED RESIDENTIAL SETTING WITH OR WITHOUT [facility]- 08/17. Vincenzo Gonsalez, RN Note: [facility] Care Management to collaborate with Home Care Mud Jack Nozzleman and / or patient to monitor for home care discharge plan, adherence to plan of care and progression towards goals. Patient to transition from Home Care to [facility] Management program when appropriate. Medical Devices Implanted Type Area Fisher Purse Seine Device Identifier Shelf Expiration Date Model / Serial / Lot [id number] 1cc Dbx Putty Dbm [[id number]] Implanted:Qty: 1 on 04/26/2016 by Buck Mata MD at [facility] Explanted:at [facility] (Quantity not on file) N/A: Spine Musculoskeletal Transplant 12/06/2017 [id number]# / [id number] / [id number] 154bone 30cc Mtf Crushed Canclls Pouch [[id number]] Implanted:Qty: 1 on 04/26/2016 by Buck Mata MD at [facility] Explanted:at [facility] (Quantity not on file) N/A: Spine Musculoskeletal Transplant 01/01/2019 [id number]# / [id number] / Spacer Lmbr [id number] 0deg Avsunilif - [id number] Implanted:Qty: 1 on 04/26/2016 by Buck Mata MD at [facility] N/A: Spine [place] Spine [id number]# / / Screw Lmbr Post 6.5x40mm Xia3 Va - [id number] Implanted:Qty: 1 on 04/26/2016 by Buck Mata MD at [facility] N/A: Spine [place] Spine [id number]# / / Screw Lmbr Post 6.5x45mm Xia3 Va - [id number] Implanted:Qty: 3 on 04/26/2016 by Buck Mata MD at [facility] N/A: Spine [place] Spine [id number]# / / Cnnctr Lmbr 35-44mm Marilee Iii Va - [id number] Implanted:Qty: 1 on 04/26/2016 by Buck Mata MD at [facility] N/A: Spine [place]ster Spine [id number]# / / Set Screw Lmbr Xia3 - [id number] Implanted:Qty: 4 on 04/26/2016 by Buck Mata MD at [facility] N/A: Spine Vivek Spine [id number]# / / Radhika Lmbr 40mmx6 Xia3 Cvd Titnm - [id number] Implanted:Qty: 1 on 04/26/2016 by Buck Mata MD at [facility] N/A: Spine [place] Spine [id number]# / / Radhika Lmbr 45mmx6 Xia3 Cvd Titnm - [id number] Implanted:Qty: 1 on 04/26/2016 by Buck Mata MD at [facility] N/A: Spine Vivek Spine [id number]# / / [id number] one Matrix 3cc Milton Dbf Putty Dbm Implanted:Qty: 1 on 06/18/2019 by Buck Mata MD at [facility] Explanted:at [facility] (Quantity not on file) N/A: Spine Medtronic Spine/Ortho 01/27/2021 [id number]# / [id number] / [id number] one 1-4mm 30cc Medtronic Chips Canclls Freeze Dried Implanted:Qty: 1 on 06/18/2019 by Buck Mata MD at [facility] Explanted:at [facility] (Quantity not on file) N/A: Spine Medtronic Spine/Ortho 10/18/2023 [id number]# / [id number] / Spacer Lmbr [id number] 0deg Avsunilif - [id number] Implanted:Qty: 1 on 06/18/2019 by Buck Mata MD at [facility] N/A: Spine Vivek Spine [id number]# / / Screw Lmbr Post 6.5x45mm Xia3 Va - [id number] Implanted:Qty: 2 on 06/18/2019 by Buck Mata MD at [facility] N/A: Spine [place] Spine [id number]# / / Radhika Lmbr 80mmx6 Xia3 Cvd Titnm - [id number] Implanted:Qty: 2 on 06/18/2019 by Buck Mata MD at [facility] N/A: Spine Vivek Spine [id number]# / / Set Screw Lmbr Xia3 - [id number] Implanted:Qty: 6 on 06/18/2019 by Buck Mata MD at [facility] N/A: Spine Vivek Spine [id number]# / / [id number] one 1-4mm 30cc Medtronic Chips Canclls Freeze Dried Implanted:Qty: 1 on 01/14/2022 by Buck Mata MD at [facility] Explanted:at [facility] (Quantity not on file) N/A: Spine Medtronic Spine/Ortho 02/25/2026 [id number] / [id number] / [id number] one Matrix 3cc Milton Dbf Putty Dbm Implanted:Qty: 1 on 01/14/2022 by Buck Mata MD at [facility] Explanted:at [facility] (Quantity not on file) N/A: Spine Medtronic Spine/Ortho 12/17/2023 [id number] / [id number] / Set Screw Lmbr Xia3 - [id number] Implanted:Qty: 8 on 01/14/2022 by Buck Mata MD at [facility] N/A: Spine [place]ichester Spine [id number] / / Radhika Lmbr [id number] Xia3 Cvd Titnm - [id number] Implanted:Qty: 2 on 01/14/2022 by Buck Mata MD at [facility] N/A: Spine [place]ster Spine [id number] / / Screw Lmbr Post 6.5x50mm Xia3va - [id number] Implanted:Qty: 2 on 01/14/2022 by Buck Mata MD at [facility] N/A: Spine Vivek Spine [id number] / / Spacer Lmbr [id number] 0 Deg Avs Unilif - [id number] Implanted:Qty: 1 on 01/14/2022 by Buck Mata MD at [facility] N/A: Spine [place] Spine [id number] / / Screw Lmbr Post 8.5x50mm Ilios Va - [id number] Implanted:Qty: 1 on 02/22/2022 by Buck Mata MD at [facility] N/A: Spine [place]ichester Spine [id number] / / Screw Lmbr Post 8.5x55mm Ilios Va - [id number] Implanted:Qty: 1 on 02/22/2022 by Buck Mata MD at [facility] N/A: Spine Vivek Spine [id number] / / Cnnctr Lmbr 53-73mm Marilee Iii Va - [id number] Implanted:Qty: 1 on 02/22/2022 by Buck Mata MD at [facility] N/A: Spine Chichester Spine [id number] / / Set Screw Lmbr Xia3 - [id number] Implanted:Qty: 8 on 02/22/2022 by Buck Mata MD at [facility] N/A: Spine Chichester Spine [id number] / / Explanted Type Area Fisher Purse Seine Device Identifier Shelf Expiration Date Model / Serial / Lot Explant Explanted:Qty: 1 on 06/18/2019 at [facility] N/A: Spine Description:RADHIKA X2 CROSSLINK X1 Chichester Marilee 3 Explanted:Qty: 1 on 02/22/2022 by Buck Mata MD at [facility] Description:2 screws/ 8 set screws Procedures Procedure Name Priority Date/Time Associated Diagnosis Comments SCAN-RADIOLOGY REPORT 12/19/2024 12:00 AM CDT SCAN-CT INTERPRETATION 12/19/2024 12:00 AM CDT SCAN-RADIOLOGY REPORT 12/19/2024 12:00 AM CDT SCAN-CT INTERPRETATION 12/19/2024 12:[address] ABDOMEN PELVIS ENTEROGRAPHY W Routine 12/16/2024 [...] medical illness C-PEPTIDE Routine 11/28/2024 1:00 PM DIRECTOR OF SEARCH ENGINE MARKETING 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) CYCLIC CITRULLINE PEPTIDE Routine 11/28/2024 11:03 AM DIRECTOR OF SEARCH ENGINE MARKETING BASIC METABOLIC PANEL Routine 11/28/2024 11:03 AM DIRECTOR OF SEARCH ENGINE MARKETING HTN (hypertension) CBC W PLT NO DIFF Routine 11/28/2024 11: 03 AM DIRECTOR OF SEARCH ENGINE MARKETING Anemia, unspecified type HEMOGLOBIN A1C MONITORING (POCT) Routine 11/28/2024 9:37 AM DIRECTOR OF SEARCH ENGINE MARKETING 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) LIPID PANEL Routine 11/28/2024 9:36 AM DIRECTOR OF SEARCH ENGINE MARKETING Hyperlipidemia, unspecified hyperlipidemia type C-REACTIVE PROTEIN Routine 11/15/2024 10 :32 AM DIRECTOR OF SEARCH ENGINE MARKETING Infection associated with internal left knee prosthesis, initial encounter CBC WITH AUTO DIFFERENTIAL Routine 11/15/2024 10:32 AM DIRECTOR OF SEARCH ENGINE MARKETING Infection associated with internal left knee prosthesis, initial encounter COMP METABOLIC PANEL Routine 11/15/2024 10:32 AM DIRECTOR OF SEARCH ENGINE MARKETING Infection associated with internal left knee prosthesis, initial encounter ECHO TTE COMPLETE WO CONTRAST Routine 10/28/2024 9:41 AM DIRECTOR OF SEARCH ENGINE MARKETING Bilateral lower extremity edema HTN (hypertension) SCAN-LABORATORY REPORT 10/15/2024 12:00 AM DIRECTOR OF SEARCH ENGINE MARKETING SCAN-LABORATORY REPORT 10/08/2024 12:00 AM DIRECTOR OF SEARCH ENGINE MARKETING XR MAMMO MACHO BILAT SCREEN Routine 02/27/2024 2:35 PM CDT Visit for screening mammogram SDNA-FIT EXTERNAL (COLOGUARD) Routine 08/20/2023 8:14 PM DIRECTOR OF SEARCH ENGINE MARKETING Screening for colon cancer LC HIV-1/O/2, 4TH GENERATION Routine 05/11/2023 11:25 AM CDT Screening for HIV (human immunodeficiency virus) LC HCV ANTIBODY RFX TO QUANT PCR Routine 05/11/2023 11:25 AM CDT Need for hepatitis C screening test [employer]RIAGE [employer] FAMILY COUNSEL[employer] THIN PREP PAP SCREEN IMAGED Routine 06/09/2020 9:35 AM CDT Cervical cancer screening from Last 3 Months or Most Recently Relevant to Health Maintenance Results * SCAN-RADIOLOGY REPORT (12/19/2024 12:00 AM CDT) Only the most recent of2 resultswithin the time period is included. Anatomical Region Laterality Modality Other us Scanner OTHER Final Result * SCAN-CT INTERPRETATION (12/19/2024 12:00 AM CDT) Only the most recent of2 resultswithin the time period is included. Anatomical Region Laterality Modality Other us Scanner OTHER Final Result * CT ABDOMEN PELVIS ENTEROGRAPHY W (12/16/2024 [...] * COVID/FLU/RSV PANEL (12/13/2024 9:36 AM CDT) [facility] COVID 19 [place] MOLECULAR Negative Negative 12/13/2024 4:17 PM CDT [facility] Comment:All PCR tests are sow bject to false negative result due to variability in viral load and collection technique. A negative result does not rule out a SARS-CoV-2 infection. Clinical correlation required. INFLUENZA A PCR Negative 4:17 PM CDT [facility] INFLUENZA B PCR Negative 4:17 PM CDT [facility] Respiratory Syncytial Virus Negative 12/13/2024 4:17 PM CDT [facility] Swab NASOPHARYNGEAL SWAB / Unknown Non-Blood / Unknown 12/13/2024 9:36 AM CDT 12/13/2024 9:36 AM CDT us Bernadette Cabrera MD MICROBIOLOGY Final Resu lt [facility] [address] [place] [address], * (ABNORMAL) CBC WITH AUTO DIFFERENTIAL (12/13/2024 9:36 AM CDT) [facility] WHITE BLOOD COUNT 8.6 4.5 - 11.0 thou/cu mm 12/13/2024 12:06 PM CDT [facility] RED BLOOD COUNT 4.46 4.00 - 5.20 mil/cu mm 12/13/2024 12:06 PM CDT [facility] HEMOGLOBIN 12.5 12.0 - 16.0 g/dL 12/13/2024 12:06 PM CDT [facility] HEMATOCRIT 40.2 33.0 - 51.0 % 12/13/2024 12:06 PM [facility] MCV 90 80 - 100 fL 12/13/2024 12:06 PM [facility] MCH 28.0 26.0 - 34.0 pg 12/13/2024 12:06 PM [facility] MCHC 31.1(L) 32.0 - 36.0 g/dL 12/13/2024 12:06 PM [facility] RDW 15.3 11.5 - 15.5 % 12/13/2024 12:06 PM [facility] PLATELET COUNT 307 140 - 440 thou/cu mm 12/13/2024 12:06 PM [facility] MPV 12.4(H) 6.5 - 11.0 fL 12/13/2024 12:06 PM [facility] % NEUT 68.7 % 12/13/2024 12:06 PM [facility] % LYMPH 17.8 % 12/13/2024 12:06 PM [facility] % MONO 7.6 % 12/13/2024 12:06 PM [facility] % EOS 5.6 % 12/13/2024 12:06 PM [facility] % BASO 0.3 % 12/13/2024 12:06 PM [facility] ABSOLUTE NEUTROPHILS 5.9 1.7 - 7.0 thou/cu mm 12/13/2024 12:06 PM [facility] ABSOLUTE LYMPHOCYTES 1.5 0.9 - 2.9 thou/cu mm 12/13/2024 12:06 PM [facility] ABSOLUTE MONOCYTES 0.7 <0.9 thou/cu mm 12/13/2024 12:06 PM [facility] ABSOLUTE EOSINOPHILS 0.5(H) <0.5 thou/cu mm 12/13/2024 12:06 PM [facility] ABSOLUTE BASOPHILS 0.0 <0.3 thou/cu mm 12/13/2024 12:06 PM [facility] Blood BLOOD SPECIMEN / Unknown [facility] / Unknown 12/13/2024 9:36 AM CDT 12/13/2024 9:36 AM CDT us Bernadette Cabrera MD HEMATOLOGY Final Resu lt [facility] [address] [place] [address] * (ABNORMAL) COMP METABOLIC PANEL (12/13/2024 9:36 AM CDT) Only the most recent of2 resultswithin the time period is included. SODIUM 146(H) 136 - 145 mmol/L 12/13/2024 12:17 PM [facility] POTASSIUM 4.0 3.5 - 5.1 mmol/L 12/13/2024 12:17 PM [facility] CHLORIDE 106 98 - 107 mmol/L 12/13/2024 12:17 PM [facility] CO2,TOTAL 29 22 - 29 mmol/L 12/13/2024 12:17 PM [facility] ANION GAP 11 5 - 18 12/13/2024 12:17 PM [facility] GLUCOSE 144(H) 70 - 99 mg/dL 12/13/2024 12:17 PM [facility] CALCIUM 10.0 8.8 - 10.4 mg/dL 12/13/2024 12:17 PM [facility] Comment: Reference ranges for this test were updated on 08/06/2024 to reflect our healthy population more accurately. Reference range changes are not retroactively applied to results, but previous results using the same methodology can be interpreted in the context of the new reference range. BUN 14 6 - 20 mg/dL 12/13/2024 12:17 PM [facility] CREATININE 0.92(H) 0.50 - 0.90 mg/dL 12/13/2024 12:17 PM [facility] BUN/CREAT RATIO 15 10 - 20 12:17 PM [facility] eGFR 74(L) >90 mL/min/1. 73m2 12/13/2024 12:17 PM [facility] Comment:As of 2021, eG FR is calculated by the CKD-EPI creatinine equation without race adjustment. eGFR can be influenced by muscle mass, exercise, and diet. The reported eGFR is an estimation only and is only applicable if the renal function is stable. ALBUMIN 4.0 4.0 - 4.9 g/dL 12/13/2024 12:17 PM [facility] PROTEIN,TOTAL 7.5 6.0 - 8.0 g/dL 12/13/2024 12:17 PM [facility] BILIRUBIN,TOTAL 0.2 0.0 - 1.2 mg/dL 12/13/2024 12:17 PM [facility] ALK PHOSPHATASE 151(H) 35 - 104 IU/L 12/13/2024 12:17 PM [facility] ALT (SGPT) 11 10 - 35 IU/L 12/13/2024 12:17 PM [facility] AST (SGOT) 19 10 - 35 IU/L 12/13/2024 12:17 PM [facility] Blood BLOOD SPECIMEN / Unknown [facility] / Unknown 12/13/2024 9:36 AM CDT 12/13/2024 9:36 AM CDT Bernadette Cabrera MD CHEMISTRY Final Resu lt [facility] [address] [place] [address] * (ABNORMAL) C-PEPTIDE (11/28/2024 1:00 PM DIRECTOR OF SEARCH ENGINE MARKETING) C-PEPTIDE 0.19(L) 0.80 - 3.85 ng/mL [facility] Blood BLOOD SPECIMEN / Unknown 11/28/2024 1:00 PM DIRECTOR OF SEARCH ENGINE MARKETING 11/28/2024 1:00 PM DIRECTOR OF SEARCH ENGINE MARKETING Bernadette Cabrera MD SEND OUTS Final Resu lt Performing Organization Address [facility]/ZIP Co de Phone Number [address] [id number] [place] [address], [facility] [address] [place] [address] * CYCLIC CITRULLINE PEPTIDE (11/28/2024 11:03 AM DIRECTOR OF SEARCH ENGINE MARKETING) [facility] CYCLIC CITRULLINATED PEPTIDE (CCP) AB (IGG) <16 UNITS [facility] Comment: Reference Range Negative: <20 Weak Positive: 20-39 Moderate Positive: 40-59 Strong Positive: >59 11/28/2024 11:0 3 AM DIRECTOR OF SEARCH ENGINE MARKETING 11/28/2024 11:03 AM DIRECTOR OF SEARCH ENGINE MARKETING Bernadette Cabrera MD SEND OUTS Final Resu lt Performing Organization Address [facility] Co de Phone Number [employer] [address] [address], [facility] [address] [place] [phone] * (ABNORMAL) CBC W PLT NO DIFF (11/28/2024 11:03 AM DIRECTOR OF SEARCH ENGINE MARKETING) [facility] WHITE BLOOD CELL COUNT 8.5 3.8 - 10.8 Thousand/u L [facility] RED BLOOD CELL COUNT 4.05 3.80 - 5.10 Million/uL [facility] HEMOGLOBIN 11.3(L) 11.7 - 15.5 g/dL [facility] HEMATOCRIT 36.5 35.0 - 45.0 % [facility] [...] BLOOD SPECIMEN / Unknown 11/28/2024 11:03 AM DIRECTOR OF SEARCH ENGINE MARKETING 11/28/2024 11:03 AM DIRECTOR OF SEARCH ENGINE MARKETING us Bernadette Cabrera MD HEMATOLOGY Final Resu lt [employer] [facility] [address] [place] [address], [employer] [address] * BASIC METABOLIC PANEL (11/28/2024 11:03 AM DIRECTOR OF SEARCH ENGINE MARKETING) [facility] GLUCOSE 81 65 - 99 mg/dL [facility] Comment: Fasting reference interval UREA NITROGEN (BUN) [...] BLOOD SPECIMEN / Unknown 11/28/2024 11:03 AM DIRECTOR OF SEARCH ENGINE MARKETING 11/28/2024 11:03 AM DIRECTOR OF SEARCH ENGINE MARKETING Bernadette Cabrera MD CHEMISTRY Final Resu lt [facility] [address] [place] [address], [place] [phone] [facility] [address] [place] [address] * (ABNORMAL) POCT Hemoglobin A1C Monitoring (11/28/2024 9:37 AM DIRECTOR OF SEARCH ENGINE MARKETING) POC HEMOGLOBIN A1C 7.0(H) <6.0 % OF TOTAL HGB [facility] Comment: Any point of care results exhibiting inconsistency with the patient's clinical status should be repeated using a different testing method. Blood BLOOD SPECIMEN / Unknown 11/28/2024 9:37 AM DIRECTOR OF SEARCH ENGINE MARKETING 11/28/2024 9:37 AM DIRECTOR OF SEARCH ENGINE MARKETING Bernadette Cabrera MD CHEMISTRY Final Resu lt Performing Organization Address City/[facility]/ZIP Co de Phone Number [facility] [address] [place] [address], [place] [phone] [facility] [address] [place] [address] * LIPID PANEL (11/28/2024 9:36 AM DIRECTOR OF SEARCH ENGINE MARKETING) CHOLESTEROL, TOTAL 152 <200 mg/dL [facility] LDL-C. Jamal TRAN et al. JOHNNY. 2013;310(19): 1760-0294 (http://education.Back&.FanKave/faq/KJW698) CHOL/HDLC RATIO 2.8 <5.0 (calc) [facility] NON HDL CHOLESTEROL 97 <130 mg/dL (calc) [facility] Comment: For patients with diabetes plus 1 major ASCVD risk factor, treating to a non-HDL-C goal of <100 mg/dL (LDL-C of <70 mg/dL) is considered a therapeutic option. Blood BLOOD SPECIMEN / Unknown 11/28/2024 9:36 AM DIRECTOR OF SEARCH ENGINE MARKETING 11/28/2024 9:36 AM DIRECTOR OF SEARCH ENGINE MARKETING Bernadette Cabrera MD CHEMISTRY Final Resu lt [employer] [address] [address], [facility] [address] [place] [address] * (ABNORMAL) C-REACTIVE PROTEIN (11/15/2024 10:32 AM DIRECTOR OF SEARCH ENGINE MARKETING) Pathologist [facility] C-REACTIVE PROTEIN 29.1(H) <8.0 mg/L [facility] Blood BLOOD SPECIMEN / Unknown 11/15/2024 10:32 AM DIRECTOR OF SEARCH ENGINE MARKETING 11/15/2024 10:32 AM DIRECTOR OF SEARCH ENGINE MARKETING Padmini Sena MD CHEMISTRY Final Re sult [employer] [facility] [address] [facility] [place] [place] [address], [place] [phone] [employer] [facility] [address] [place] [address] * (ABNORMAL) CBC AND DIFFERENTIAL (11/15/2024 10:32 AM DIRECTOR OF SEARCH ENGINE MARKETING) WHITE BLOOD CELL COUNT 7.7 3.8 - [...] BLOOD SPECIMEN / Unknown 11/15/2024 10:32 AM DIRECTOR OF SEARCH ENGINE MARKETING 11/15/2024 10:32 AM DIRECTOR OF SEARCH ENGINE MARKETING us Padmini Sena MD HEMATOLOGY Final Re sult [facility] [address] [place] [address], [employer] [facility] [address] [place] [address] * ECHO TTE COMPLETE WO CONTRAST (10/28/2024 9:41 AM DIRECTOR OF SEARCH ENGINE MARKETING) AORTIC VALVE MEAN PG 5 mmHg EJECTION FRACTION 65 % LVEDD 4.3 cm Anatomical Region Laterality Modality Ultrasound 10/28/2024 9:04 AM DIRECTOR OF SEARCH ENGINE MARKETING Narrative 10/28/2024 10:23 AM DIRECTOR OF SEARCH ENGINE MARKETING ECHOCARDIOGRAM JENNIFER GALEANO : 1970 53 years Study Date: 10/28/2024 9:04:42 AM Gender: F BP: 160/70 mmHg Height: 152.00 cm BSA: 1.81 m Weight: 85.00 kg Tech: [facility] Referring MD: BERNADETTE CABRERA Site: [facility] Reading Location: Mobile OP Patient Location: [...] . This study was interpreted by an [facility] accredited facility. Final Procedure Note Carolyn Dias, [facility] - 10/28/2024 ECHOCARDIOGRAM JENNIFER GALEANO : 1970 53 years Study Date: 10/28/2024 9:04:42 AM Gender: F BP: 160/70 mmHg Height: 152.00 cm BSA: 1.81 m Weight: 85.00 kg Tech: ALVIN Referring MD: BERNADETTE CABRERA Site: [facility] Reading Location: Mobile OP Patient Location: [...] . This study was interpreted by an [facility] accredited facility. Final us Bernadette Cabrera MD ECHO ORD Final Resu lt * SCAN-LABORATORY REPORT (10/15/2024 12:00 AM DIRECTOR OF SEARCH ENGINE MARKETING) Only the most recent of2 resultswithin the time period is included. us [...] For Patients: As a result of the 21st Century Cures Act, medical imaging exams and procedure reports are released immediately into your electronic medical record. You may view this report before your referring provider. If you have questions, please contact your health care provider. XR MAMMO MACHO BILAT SCREEN [[id number]] CLINICAL HISTORY: This is an asymptomatic 53 y.o. patient. INDICATION FOR EXAM: Mammogram Screening. TECHNIQUE: CC & MLO views were obtained. This study was evaluated with the assistance of Computer-Aided Detection. Breast Tomosynthesis was used in interpretation. COMPARISON FILM: Yes 11/08/22 [facility] 06/29/21 [facility] FINDINGS: The breasts are extremely dense, which lowers the sensitivity of mammography. There are no dominant masses, suspicious micro calcifications or areas of architectural distortion. us Bernadette Cabrera MD MAMMO Final Resu lt * sDNA-FIT External (Cologuard) [[id number]] (08/20/2023 8:14 PM DIRECTOR OF SEARCH ENGINE MARKETING) NONINV COLON CA DNA+OCC BLD SCRN STL-IMP Negative Negative 08/31/2023 3:41 AM DIRECTOR OF SEARCH ENGINE MARKETING [employer] (CLIA #:[id number]) Comment: NEGATIVE TEST RESULT. A negative Cologuard [...] screened with both Cologuard and colonoscopy. (Homar Griggs al, N Engl J Med 2014;370(14):0756-1320) The normal value (reference range) for this assay is negative. COLOGUARD RE-SCREENING RECOMMENDATION: Periodic colorectal cancer screening is an important part of preventive healthcare for asymptomatic individuals at average risk for colorectal cancer. Following a negative Cologuard result, the [place] [employer] and U.S. Multi-Society Task Force screening guidelines recommend a Cologuard re-screening interval of 3 years. References: [place] [employer] Guideline for Colorectal Cancer Screening: https://www.cancer.org/cancer/gngsm-rjfmrh-gpavef/atjvkrwrv-asslinqif-pgumall/ac s-rec ommendations.html.; Hood DK, Renan DAMON, Paty NunezK, Colorectal Cancer Screening: Recommendations for Physicians and Patients from the U.S. Multi-Society Task Force on Colorectal Cancer Screening , Am J Gastroenterology 2017; 112:7302-2778. TEST DESCRIPTION: Composite algorithmic analysis of stool [...] screened with both Cologuard and colonoscopy. (Homar Griggs al, N Engl J Med 2014;370(14):9248-1752.) Cologuard may produce a false negative or false positive result (no colorectal cancer or precancerous polyp present at colonoscopy follow up). A negative Cologuard test result does not guarantee the absence of CRC or advanced adenoma (pre-cancer). The current Cologuard screening interval is every 3 years. ([place] [employer] Society and U.S. Multi-Society Task Force). Cologuard performance data in a 10,000 patient pivotal study using colonoscopy as the reference method can be accessed at the following location: www.Plexx.FanKave/results. Additional description of the Cologuard test process, warnings and precautions can be found at www.cologMadeCloserd.com. Stool specimen (specimen) (Rectum) 08/20/2023 8:14 PM DIRECTOR OF SEARCH ENGINE MARKETING 08/22/2023 5:49 PM DIRECTOR OF SEARCH ENGINE MARKETING Bernadette Cabrera MD URINE Final Resu lt [employer] (CLIA #:[id number]) [address] [place] [address], * LC HCV ANTIBODY RFX TO QUANT PCR (05/11/2023 11:25 AM CDT) Pathologist [facility] HCV Ab Non Reactive Non Reactive 05/14/2023 8:36 AM CDT [facility] ([facility]) Blood BLOOD SPECIMEN / Unknown Venipuncture / Unknown 05/11/2023 11:25 AM CDT 05/11/2023 11:26 AM CDT Narrative [facility] ([facility]ET) - 05/14/2023 8:36 AM CDT Performed at: [address] [place] [address] [id number] Pattern Checker: Klaus Rojas MD, Phone: [phone] Bernadette Cabrera MD LABORATORY Final Resu lt Performing Organization Address City/[facility]/ZIP Co de Phone Number [facility] ([facility]) [address] [place] [address], * LC HIV-1/O/2, 4TH GENERATION (05/11/2023 11:25 AM CDT) Pathologist [facility] HIV Scr 4th Gen Non Reactive Non Reactive 05/14/2023 8:[address] [facility] ([facility]ET) Comment: HIV Negative HIV-1/HIV-2 antibodies and HIV-1 p24 antigen were NOT detected. There is no laboratory evidence of HIV infection. Blood BLOOD SPECIMEN / Unknown Venipuncture / Unknown 05/11/2023 11:25 AM CDT 05/11/2023 11:26 AM CDT Narrative [facility] ([facility]ET) - 05/14/2023 8:36 AM CDT Performed at: [address] [place] [id number] Pattern Checker: Klaus Rojas MD, Phone: [phone] us Bernadetet Cabrera MD LABORATORY Final Resu lt [facility] ([facility]) [address] [place] [address], * MARRIAGE AND FAMILY COUNSELOR THIN PREP PAP SCREEN IMAGED (06/09/2020 9:35 AM CDT) Case Report Gynecologic Cytology Report Case: [id number] Authorizing Provider: Bernadette Cabrera MD Collected: 06/09/2020 0935 Ordering Location: [facility] Received: 06/09/2020 1124 Clinic First Screen: Nicole Mak Specimen: MARRIAGE AND FAMILY COUNSELOR ThinPrep Vial Screening, Cervical 06/18/2020 8:23 AM CDT [facility] INTERPRETATION/ RESULT NEGATIVE FOR INTRAEPITHELIAL LESION OR MALIGNANCY (NIL) (none) 06/18/2020 8:23 AM CDT [facility] [employer] ENTRAL LABORATORY NISM(S) 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 06/18/2020 8:23 AM CDT [facility] SPECIMEN ADEQUACY Satisfactory for evaluation No endocervical component seen 06/18/2020 8:23 AM CDT [facility] HPV REQUEST HPV and PAP 06/18/2020 8:23 AM CDT [facility] Date of LMP Years ago due to ablation 06/18/2020 8:23 AM CDT [facility] Last Pap Date 03/30/17 06/18/2020 8:23 AM CDT [facility] Last Pap Result NIL 0 8:23 AM CDT [facility] Abnormal Pap or Safford Bx in last 5 years No 06/18/2020 8:23 AM CDT [facility] Menstrual Status Postmenopausal 06/18/2020 8:23 AM CDT [facility] Safford Bx Done Today No 06/18/2020 8:23 AM CDT [facility] Additional Information None given 06/18/2020 8:23 AM CDT [facility] Comment: Cytology is screened at [facility] - [address], [place] [address] and [facility] - [address], [place] [address] and [facility] - [address] [place] [address] [facility] - [address], [place] [address] Automated Review Successful 06/18/2020 8:23 AM CDT [facility] Comment:Specimen processed s uccessfully by automated stick inserter device, ThinPrep Imaging System, [employer] ANCILLARY TESTING MARRIAGE AND FAMILY COUNSELOR HPV Ordered, Please see separate report 06/18/2020 8:23 AM CDT [facility] Note The pap test is a [...] and malignant lesions. 06/18/2020 8:23 AM CDT [facility] Other (Cervical) Non-Blood / Unknown 06/09/2020 9:35 AM CDT 06/09/2020 11:24 AM CDT us Bernadette Cabrera MD PATHOLOGY/CYTOLOGY Final R esult [facility] [address] [place] [address], [place] from Last 3 Months or Most [...] 8:37 AM 04/26/2016 2:34 PM Care Teams Gold Beater Relationship Specialty Start Date End Date Bernadette Cabrera [place] [address] PCP - General Family Practice 10/14/[address] [place] [address] 01/16/22
--- OUTSIDE RECORDS SUMMARY | 2024-12-30 09:14 | XMS_ITS | Clinical Summary ---
Author Organization [employer] Address [address] [place] [address] Care Team Providers Care Sleep Lab Technician Name Role Phone Unavailable Primary Care [...] for each transition of care or referral. [employer] Allergies Active Allergy Reactions Criticality Noted Date [...] Recently Relevant to Health Maintenance Insurance MEDICARE [facility]
--- OUTSIDE RECORDS SUMMARY | 2024-12-30 09:14 | XMS_ITS | Encounter Summary ---
Author Organization [facility] Address [address] [place] [address] Care Team Providers Care Certified Novell Engineer Name Role Phone David Parisi MD Primary Care Provider Uriel Mercedes MD Unavailable [phone] Reason for Visit * Reason Comments RECHECK DOS 03-20-24 Fusion L umbar Encounter Details Date Type Department Care Team (Late st Contact Info) Description 12/05/2024 8:40 AM PHARMACY DELIVERY DRIVER Office Visit [facility] [place] [id number] [facility] [address] [place] [address] Uriel Mercedes MD [address] [place], [place] [phone] S/P lumbar spinal fusion (Primary Dx) Social [...] on file Legal Sex Female 5:08 AM PHARMACY DELIVERY DRIVER Gender Identity Not on file [...] backout of loosening of L5 screws. [Implants: Emblem Marilee 3 screw system, UNILIF PEEK cage]. 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 [Implants: Mela Artisanstronic Solera and Ballast screw system, 5.5 mm CoCr rods x4, including 1 UNID cristian; Capstone Control PTC cages; SI-Bone Ector screws x2]. 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 [Implants: Mela [employer] Solera screw system, 5.5 mm CoCr rods [...] did undergo left TKA in August at [place] which subsequently got infected and required 2 [...] 8mo 32% 9mo 51.11% S/p Rev PISF [id number]; TLIF-SPO L1-2 (03/20/24): CHELA preop 51.11% 6wk [...] present. Stable appearance of posterior fusion hardware [id number] without evidence of hardware failure or fracture. Mild increase in T11-12 disc degenerative changes compared to previous images. A> 54/F 1. 9 months s/p Revision PISF N06-ienrix for large central suprajacent lateral central disc herniation with compression of the cauda equina at L1-2; progressing as expected 2. S/p multiple lumbar spine surgeries ([id number], all by Dr. Mata, [facility]), culminating in L2-L5 TLIF-PISF. [...] with patient and family. Uriel Mercedes MD Inspector Floor Orthopaedic Spine Surgery Dept Orthopaedic Surgery, [facility] [phone] office, pager [email or web address] documented in this encounter Plan of Treatment Upcoming Encounters Date Type Department Care Team (Late st Contact Info) Description 05/29/2025 9:40 AM CDT Ancillary Procedure [facility] [address] 1st [place] [address] Uriel Mercedes MD [address] [place] [address] 05/29/2025 10:40 AM CDT Office Visit [facility] [address] 4th [place] [phone] Uriel Mercedes MD [address] [place] [address] documented as of this encounter Visit Diagnoses Diagnosis S/P lumbar spinal fusion- Primary Arthrodesis status documented in this encounter Care Teams Certified Novell Engineer Relationship Specialty Start Date End Date David Parisi MD [address] [place] [address] PCP - General 03/16/23 Uriel Mercedes MD [address] [place] [address] Assigned Musculoskeletal Provider 03/25/23 documented as of this encounter
--- OUTSIDE RECORDS SUMMARY | 2024-12-30 09:14 | XMS_ITS | Encounter Summary ---
Author Organization [facility] Address [address] [place] [address] Care Team Providers Care Automatic Car Wash Attendant Name Role Phone None Reported, Pcp Primary Care Provider Unavail able Reason for Visit * Reason Comments Med Refill Encounter Details Date Type Department Care Team (Late st Contact Info) Description 12/24/2024 Refill [facility] [place] [address] [place] [phone] Joann Gaffney, TYRESE, C.N.P. 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 - 12/24/2024 10:02 AM CDT Patient no longer under Erica Gaffney's Care documented in this encounter Plan of Treatment Upcoming Encounters Date Type Department Care Team (Late st Contact Info) Description 02/19/2025 10:15 AM CDT Office Visit Department of Neurology in [place], [place] [address] [place] [address] Casa Larose M.D. [address] [place] [address] documented as of this encounter Visit Diagnoses Not on filedocumented in this encounter Care Teams Automatic Car Wash Attendant Relationship Specialty Start Date End Date None Reported, Pcp PCP - General Family Medicine 10/04/24 documented as of this encounter
--- OUTSIDE RECORDS SUMMARY | 2024-12-30 09:14 | XMS_ITS | Encounter Summary ---
Author Organization [place] Address [facility] [place] [address] Care Team Providers Care Can Filling Room Sweeper Name Role Phone David Parisi MD Primary Care Provider Uriel Mercedes MD Unavailable Brandon Parikh MD Unavailable Reason for Visit * Reason Onset Date Comments Prior Auth - Medication 04/27/2023 LamoTRIg ine (LAMICTAL) 250 MG TB24 - APPROVAL Encounter Details Date Type Department Care Team (Late st Contact Info) Description 04/27/2023 Telephone [facility] [address] [address] [place] [address] [place] [address] Prior Auth - Medication (LamoTRIgine (LAMICTAL) [...] on file Legal Sex Female 5:08 AM TOOL MARKER Gender Identity Not on file Sexual Orientation [...] Dose/Quantity: 30 FOR 30 DAYS Insurance Company: [email or web address] Part D - [facility] is filling the prescription: MARISA HARTMAN [...] ER 250 MG PO TB24 Insurance Company: [email or web address] Part D - Pharmacy Filling the Rx: [...] Description 05/29/2025 9:40 AM CDT Ancillary Procedure [facility] [address] 1st [place] [phone] Uriel Mercedes MD [address] [place], [place] [address] 05/29/2025 10:40 AM CDT Office Visit [facility] [address] 4th [place] [phone] Uriel Mercedes MD [address] [place] [address] documented as of this encounter Visit Diagnoses Not on filedocumented in this encounter Care Teams Can Filling Room Sweeper Relationship Specialty Start Date End Date David Parisi MD [address] [place] [address] PCP - General 03/16/23 Uriel Mercedes MD [address] [place] [address] Assigned Musculoskeletal Provider 03/25/23 Brandon Parikh MD [address] [place] [address] Assigned Neuroscience Provider 04/29/23 11/23/24 documented as of this encounter
--- OUTSIDE RECORDS SUMMARY | 2024-12-30 09:14 | XMS_ITS | Clinical Summary ---
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, [...] Pump (OMNIPOD 5 G6 PODS, GEN 5,) [facility] Basal rate #1 (3127-9233): 0.8 units/hr Basal rate #2 (9120-3502): 0.85 units/hr 4 Active polyethylene glycol (MIRALAX) [...] Department Care Team Description 12/05/2024 8:40 AM GEOGRAPHY DEPARTMENT CHAIR Office Visit [facility] [address] [place] [address] Uriel Mercedes MD S/P lumbar spinal fusion (Primary Dx) 12/05/2024 8:20 AM GEOGRAPHY DEPARTMENT CHAIR Ancillary Procedure [facility] Xray [address] [place] [phone] Uriel Mercedes MD S/P spinal fusion; Herniated lumbar intervertebral disc; History of fusion of cervical spine; Status post lumbar spinal fusion 12/05/2024 Orders Only [facility] [address] [phone] Uriel Mercedes MD S/P lumbar spinal fusion (Primary Dx); Herniated lumbar intervertebral disc; Status post lumbar spinal fusion 12/05/2024 Travel 11/13/2024 Orders Only [facility] [address] [phone] Uriel Mercedes MD S/P spinal fusion (Primary [...] on file Legal Sex Female 5:08 AM GEOGRAPHY DEPARTMENT CHAIR Gender Identity Not on file Sexual Orientation [...] Description 05/29/2025 9:40 AM CDT Ancillary Procedure [facility] CT Clinic [address] [place] [phone] Uriel Mercedes MD [address] [place] [address] 05/29/2025 10:40 AM CDT Office Visit [facility] [address] [place] [phone] Uriel Mercedes MD [address] [place] [address] 119194 Health Maintenance Due Date Last Done Comments [...] this topic Medical Devices Implanted Type Area Shipping Lead Person Device Identifier Shelf Expiration Date Model / Serial / Lot Graft Bn Canc 30cc Crs 1-10mm [id number] - [id number] Implanted:Qty : 1 on 06/02/2023 by Uriel Mercedes MD at [facility] Bone/Tissu e/Biologic N/A: Spine Lumbar [employer] 05/18/2026 [id number] / [id number] / [id number] Graft Bn Can 30cc Crs 1-10mm [id number] - [id number] Implanted:Qty : 1 on 06/02/2023 by Uriel Mercedes MD at [facility] Bone/Tissu e/Biologic N/A: Spine Lumbar [employer] 05/14/2026 [id number] / [id number] / [id number] Graft Bn Can 30cc Crs 1-10mm [id number] - [id number] Implanted:Qty : 1 on 03/20/2024 by Uriel Mercedes MD at [facility] Bone/Tissu e/Biologic N/A: Spine Lumbar [employer] 09/06/2026 [id number] / [id number] / [id number] Imp Scr Medt 5.5/6.0mm Solera 7.5x55mm Ma [id number] - [id number] Implanted:Qty : 1 on 06/02/2023 by Uriel Mercedes MD at [facility] Metallic Hardware/A nchor N/A: Spine Lumbar [employer] [id number] 12/16/2030 [id number] / / [id number] Imp Scr Medt 5.5/6.0mm Solera 7.5x40mm Ma [id number] - [id number] Implanted:Qty : 1 on 06/02/2023 by Uriel Mercedes MD at [facility] Metallic Hardware/A nchor N/A: Spine Lumbar [employer] [id number] / / Screw Bn 90mm 9.5mm Ma Cnn Ns Cd Hzn Spne Lf Bs Cnmas Tc - [id number] Implanted:Qty : 2 on 06/02/2023 by Uriel Mercedes MD at [facility] Metallic Hardware/A nchor N/A: Spine Lumbar [employer] [id number] / / Imp Rupert Medt Solera Lined 5.9t571ri Chr [id number] - [id number] Implanted:Qty : 1 on 06/02/2023 by Uriel Mercedes MD at [facility] Metallic Hardware/A nchor N/A: Spine Lumbar [employer] [id number] / / Imp Scr Medt 5.5/6.0mm Solera 7.5x50mm Ma [id number] - [id number] Implanted:Qty : 1 on 06/02/2023 by Uriel Mercedes MD at [facility] Metallic Hardware/A nchor N/A: Spine Lumbar [employer] [id number] 05/09/2031 [id number] / / [id number] Imp Spnl Ifuse Bedrock Coram 10.5 Mm X 90 Mm [id number] - [id number] Implanted:Qty : 1 on 06/02/2023 by Uriel Mercedes MD at [facility] Metallic Hardware/A nchor N/A: Spine Lumbar [employer] [id number] 03/22/2028 [id number] / [id number] / Imp Spnl Ifuse Bedrock Coram 10.5 Mm X 90 Mm [id number] - [id number] Implanted:Qty : 1 on 06/02/2023 by Uriel Mercedes MD at [facility] Metallic Hardware/A nchor N/A: Spine Lumbar [employer] [id number] 03/22/2028 [id number] / [id number] / Imp Scr Set Medt Solera Break Off 5.5mm Ti [id number] - [id number] Implanted:Qty : 12 on 06/02/2023 by Uriel Mercedes MD at [facility] Metallic Hardware/A nchor N/A: Spine Lumbar [employer] [id number] / / Imp Scr Medt 5.5/6.0mm Solera 6.5x50mm Ma [id number] - [id number] Implanted:Qty : 2 on 06/02/2023 by Uriel Mercedes MD at [facility] Metallic Hardware/A nchor N/A: Spine Lumbar [employer] [id number] / / Imp Scr Medt 5.5/6.0mm Solera 9.5x50mm Ma [id number] - [id number] Implanted:Qty : 1 on 06/02/2023 by Uriel Mercedes MD at [facility] Metallic Hardware/A nchor N/A: Spine Lumbar [employer] [id number] / / Imp Scr Medt 5.5/6.0mm Solera 7.5x45mm Ma [id number] - [id number] Implanted:Qty : 1 on 06/02/2023 by Uriel Mercedes MD at [facility] Metallic Hardware/A nchor N/A: Spine Lumbar [employer] [id number] / / Imp Scr Medt 5.5/6.0mm Solera 8.5x50mm Ma [id number] - [id number] Implanted:Qty : 1 on 06/02/2023 by Uriel Mercedes MD at [facility] Metallic Hardware/A nchor N/A: Spine Lumbar [employer] [id number] / / Imp Scr Medt 5.5/6.0mm Solera 6.5x45mm Ma [id number] - [id number] Implanted:Qty : 2 on 03/20/2024 by Uriel Mercedes MD at [facility] Metallic Hardware/A nchor N/A: Spine Lumbar [employer] 03/20/2024 [id number] / / Imp Scr Medt 5.5/6.0mm Solera 6.5x50mm Ma [id number] - [id number] Implanted:Qty : 2 on 03/20/2024 by Uriel Mercedes MD at [facility] Metallic Hardware/A nchor N/A: Spine Lumbar [employer] 03/20/2024 [id number] / / Imp Spacer Medt Capstone 8x22mm 0deg Ir [id number] - [id number] Implanted:Qty : 1 on 03/20/2024 by Uriel Mercedes MD at [facility] Metallic Hardware/A nchor N/A: Spine Lumbar [employer] [id number] 12/16/2029 [id number] / / [id number] Imp Scr Set Medt Solera Break Off 5.5mm Ti [id number] - [id number] Implanted:Qty : 8 on 03/20/2024 by Uriel Mercedes MD at [facility] Metallic Hardware/A nchor N/A: Spine Lumbar [employer] [id number] / / N/A Imp Rupert Medt Solera Lined 5.5v830of Chr [id number] - [id number] Implanted:Qty : 1 on 03/20/2024 by Uriel Mercedes MD at [facility] Metallic Hardware/A nchor N/A: Spine Lumbar [employer] [id number] / / N/A Imp Connector Medt Horizon Closed 5.5mm [id number] - [id number] Implanted:Qty : 2 on 03/20/2024 by Uriel Mercedes MD at [facility] Metallic Hardware/A nchor N/A: Spine Lumbar [employer]-DANEK [id number] / / N/A Imp Scr Set [place] Medt 5.5 To 5.5mm [id number] - [id number] Implanted:Qty : 2 on 03/20/2024 by Uriel Mercedes MD at [facility] Metallic Hardware/A nchor N/A: Spine Lumbar [employer] [id number] / / Imp Scr [place] Legacy Breakoff Set 5.5mm Ti [id number] - [id number] Implanted:Qty : 2 on 03/20/2024 by Uriel Mercedes MD at [facility] Metallic Hardware/A nchor N/A: Spine Lumbar [employer]-DANEK [id number] / / N/A Graft Bone Infuse Bmp Lg [id number] - [id number] Implanted:Qty : 1 on 06/02/2023 by Uriel Mercedes MD at [facility] N/A: Spine Lumbar [employer] 11/30/2024 [id number] / / [id number] Capstone Control Ptc Spinal System Spacer [id number], 18 Deg, Peek/Ti/Ta Implanted:Qty : 4 on 06/02/2023 by Uriel Mercedes MD at [facility] N/A: Spine Lumbar [employer] 06/10/2030 [id number] / / [id number] Unid Exp Cocr Rupert 5.5mm 4+ Lv Implanted:Qty : 2 on 06/02/2023 by Uriel Mercedes MD at [facility] N/A: Spine Lumbar [employer] 07/31/2023 [id number] / / [id number] Graft Bone Infuse Bmp Sm [id number] - [id number] Implanted:Qty : 1 on 03/20/2024 by Uriel Mercedes MD at [facility] N/A: Spine Lumbar [employer] 04/01/2025 [id number] / / [id number] Explanted Type Area Shipping Lead Person Device Identifier Shelf Expiration Date Model / Serial / Lot All Spinal Fusion Hardware Removed And Discarded As Indicated By Dr. Mercedes Consistent With The Revision Surgical Procedure Criteria Explanted:Qty: 1 on 06/02/2023 by Uriel Mercedes MD at [facility] N/A: Spine Lumbar Procedures Procedure Name Priority Date/Time Associated Diagnosis Comments XR EOS TOTAL BODY Routine 12/05/2024 9:1 8 AM GEOGRAPHY DEPARTMENT CHAIR S/P spinal fusion Herniated lumbar intervertebral disc [...] XR EOS Total Body (12/05/2024 9:18 AM GEOGRAPHY DEPARTMENT CHAIR) Anatomical Region Laterality Modality Spine, Lower Extremity Computed Radiography Impressions 12/05/2024 1:22 PM GEOGRAPHY DEPARTMENT CHAIR Impression: 1. Stable ACDF and posterior fusion at C5-C7 and posterior T12 the pelvis instrument fusion without evidence of hardware complication. Slightly increased opposing endplate degenerative changes at T11-T12. 2. No global sagittal or coronal imbalance. 3. Weight bearing axis as detailed above. EBONY WRIGHT MD Narrative 12/05/2024 1:22 PM GEOGRAPHY DEPARTMENT CHAIR Exam: Full body radiographs using EOS History: [...] No substantial global coronal imbalance. Sagittal Vertical [place] (A vertical line drawn from the center [...] No substantial global coronal imbalance. Sagittal Vertical [place] (A vertical line drawn from the center [...] BLOOD ORDERABLES Final Res ult [facility] Acute Care Lab [address], [address] [place] [address], [facility] * (ABNORMAL) Hemoglobin A1c (04/11/2023 12:57 PM [...] - BLOOD ORDERABLES Final Result [facility] Core Lab [address] [facility], [address] [place] [address], [facility] [phone] from Last 3 Months or Most Recently Relevant to Health [place] [id number] [place] Advance Directives For more information, please contact: [phone] * Full Code (Latest Code Status on [...] continue PREVIOUSLY ORDERED code status Care Teams Cooling Room Attendant Relationship Specialty Start Date End Date David Parisi MD [address] [place] [address] PCP - General 03/16/23 Uriel Mercedes MD [address] [place] [address] Assigned Musculoskeletal Provider 03/25/23
--- OUTSIDE RECORDS SUMMARY | 2024-12-30 09:14 | XMS_ITS | Encounter Summary ---
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 Gender Identity Not on file Sexual Orientation [...] has her mri scheduled on 02/11/24 at [facility].She would like to talk to Johanna Could we [facility] this [facility] or would you prefer to receive a phone call?: Patient would prefer a phone call Okay to leave a detailed message?: Yes at Home number on file [phone] (home) documented in this encounter Plan of Treatment Upcoming Encounters Date Type Department Care Team (Late st Contact Info) Description 05/29/2025 9:40 AM CDT Ancillary Procedure [facility] [address] 1st [place] [phone] Uriel Mercedes MD [address] [place] [id number] 05/29/2025 10:40 AM CDT Office Visit [facility] [address] 4th [place] [phone] Uriel Mercedes MD [address] [place] [address] documented as of this encounter Visit Diagnoses Not on filedocumented in this encounter Care Teams Buhr Dresser Relationship Specialty Start Date End Date David Parisi MD [address] [place] [address] PCP - General 03/16/23 Uriel Mercedes MD [address] [place] [address] Assigned Musculoskeletal Provider 03/25/23 Brandon Parikh MD [address] [place] [address] Assigned Neuroscience Provider 04/29/23 11/23/24 documented as of this encounter
--- OUTSIDE RECORDS SUMMARY | 2024-12-30 09:15 | XMS_ITS | Encounter Summary ---
Author Organization [place] Address [address] [place] [address]. [place] [address] Care Team Providers Care Maintenance Of Way Supervisor Name Role Phone David Parisi MD Primary Care Provider Uriel Mercedes MD Unavailable [phone] Brandon Parikh MD Unavailable Reason for Visit * Reason Onset Date Comments Call Back 04/21/2023 Upcoming Surgery Conversation She want to have with Doctor. Misunderstanding from Yesterday Conversation. 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 Misunderstanding from Yesterday Conversation. Please call Action Taken: Message routed to: [facility] Travel Screening: Not Applicable documented in this encounter Plan of Treatment Upcoming Encounters Date Type Department Care Team (Late st Contact Info) Description 05/29/2025 9:40 AM CDT Ancillary Procedure [facility] Clinic [address] 1st [place] [phone] Uriel Mercedes MD [address] [place] [phone] 05/29/2025 10:40 AM CDT Office Visit [facility] [address] 4th [place] [phone] Uriel Mercedes MD [address] [place] [phone] documented as of this encounter Visit Diagnoses Not on filedocumented in this encounter Care Teams Maintenance Of Way Supervisor Relationship Specialty Start Date End Date David Parisi MD [address] [place] [address] PCP - General 03/16/23 Uriel Mercedes MD [address] [place] [address] Assigned Musculoskeletal Provider 03/25/23 Brandon Parikh MD [address] [place] [address] Assigned Neuroscience Provider 04/29/23 11/23/24 documented as of this encounter
--- OUTSIDE RECORDS SUMMARY | 2024-12-30 09:15 | XMS_ITS | Encounter Summary ---
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 Gender Identity Not on file Sexual Orientation Not on file documented as of this encounter Plan of Treatment Upcoming Encounters Date Type Department Care Team (Late st Contact Info) Description 05/29/2025 9:40 AM CDT Ancillary Procedure [facility] CT Clinic [address] 1st [place] [address] Uriel Mercedes MD [address] [facility] [address] [place], [place] [address] 05/29/2025 10:40 AM CDT Office Visit [facility] [address] 4th [place] [address] Uriel Mercedes MD [address] [facility] [address] [place] [address] documented as of this encounter Visit Diagnoses Not on filedocumented in this encounter Care Teams Landscape Nurseryman Relationship Specialty Start Date End Date David Parisi MD [address] [place] [address] PCP - General 03/16/23 Uriel Mercedes MD [address] [facility] [place] [address] Assigned Musculoskeletal Provider 03/25/23 documented as of this encounter
--- OUTSIDE RECORDS SUMMARY | 2024-12-30 09:15 | XMS_ITS | Encounter Summary ---
Author Organization [facility] Address [address] [place] [address] Care Team Providers Care Oncology Physician Assistant Name Role Phone None Reported, Pcp Primary Care Provider Unavail able Reason for Visit * Reason Comments Med Refill Encounter Details Date Type Department Care Team (Late st Contact Info) Description 11/02/2024 [facility]ill [facility] [place] [address] [place] [phone] Joann Gaffney, TYRESE, C.N.P. 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 - 11/04/2024 7:46 AM TESTER SEMICONDUCTOR PACKAGES Pt not under Erica Gaffney's Care ER SEMICONDUCTOR PACKAGES documented in this encounter Plan of Treatment Upcoming Encounters Date Type Department Care Team (Late st Contact Info) Description 02/19/2025 10:15 AM CDT Office Visit Department of Neurology in [place], [place] [address] [address] Casa Larose M.D. [address] [place] [address] documented as of this encounter Visit Diagnoses Not on filedocumented in this encounter Care Teams Oncology Physician Assistant Relationship Specialty Start Date End Date None Reported, Pcp PCP - General Family Medicine 10/04/24 documented as of this encounter
--- OUTSIDE RECORDS SUMMARY | 2024-12-30 09:15 | XMS_ITS | Encounter Summary ---
Author Organization [place] Address [address] [place] [address] Care Team Providers Care Dice Manager Name Role Phone David Parisi MD Primary Care Provider Uriel Mercedes MD Unavailable Brandon Parikh MD Unavailable Reason for Visit * Reason Onset Date Comments Call Back 04/20/2023 Pt needs to spederek bar with someone concerning her 05/01 procedure Clinic Care Coordination - Follow-up 04/20/2023 Encounter Details Date Type Department Care Team (Late st Contact Info) Description 04/20/2023 Telephone [facility] [place] [address] [facility] [address] 4th [place] [address] Uriel Mercedes MD [address] [place] [address] Call Back (Pt needs to [...] on file 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 Please call patient. Action Taken: Other: [phone] Travel Screening: Not Applicable documented in this encounter Plan of Treatment Upcoming Encounters Date Type Department Care Team (Late st Contact Info) Description 05/29/2025 9:40 AM CDT Ancillary Procedure [facility] CT Clinic [address] 1st [place] [phone] Uriel Mercedes MD [address] [place] [address] 05/29/2025 10:40 AM CDT Office Visit [facility] [address] 4th [place] [phone] Uriel Mercedes MD [address] [facility] [place] [address] documented as of this encounter Visit Diagnoses Not on filedocumented in this encounter Care Teams Dice Manager Relationship Specialty Start Date End Date David Parisi MD [address] [place] [address] PCP - General 03/16/23 Uriel Mercedes MD [address] [facility] [place] [address] Assigned Musculoskeletal Provider 03/25/23 Brandon Parikh MD [address] [place] [address] Assigned Neuroscience Provider 04/29/23 11/23/24 documented as of this encounter
--- OUTSIDE RECORDS SUMMARY | 2024-12-30 09:15 | XMS_ITS | Encounter Summary ---
Author Organization [facility] Address [address] [place] [address] Care Team Providers Care Cmm Inspector Name Role Phone David Parisi MD Primary Care Provider Uriel Mercedes MD Unavailable Brandon Parikh MD Unavailable Reason for Visit * Reason Onset Date Comments Results 04/24/2023 Lab results of lab draw Encounter Details Date Type Department Care Team (Late st Contact Info) Description 04/24/2023 Telephone [facility] [address] [place] [address] Michelle Shannon APRN [address] [address] Results (Lab results of 04/19/23 [...] on file Legal Sex Female 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 No / Unsure 04/27/2023 10:44 AM CDT documented as of this encounter Miscellaneous Notes * Telephone Encounter - ShaliniNarcisa jacobsenine - 04/24/2023 1:27 PM CDT [facility] Phone Message May a detailed message be left on voicemail: yes Reason for Call: Requesting Results Name/type of test: Labs Date of test: 04/19/23 Was test done at a location other than [facility] (Please fill in the location if not [facility])?: Yes: [facility] (in care Everywhere) Action Taken: Message routed to: [facility] Travel Screening: Not Applicable documented in this encounter Plan of Treatment Upcoming Encounters Date Type Department Care Team (Late st Contact Info) Description 05/29/2025 9:40 AM CDT Ancillary Procedure [facility] [address] 1st [place] [phone] Uriel Mercedes MD [address] [place] [address] 05/29/2025 10:40 AM CDT Office Visit [facility] [address] 4th [place] [phone] Uriel Mercedes MD [address] [place] [address] documented as of this encounter Visit Diagnoses Not on filedocumented in this encounter Care Teams Cmm Inspector Relationship Specialty Start Date End Date David Parisi MD [address] [place] [address] PCP - General 03/16/23 Uriel Mercedes MD [address] [facility] [address] [address] Assigned Musculoskeletal Provider 03/25/23 Brandon Parikh MD [address] [place] [address] Assigned Neuroscience Provider 04/29/23 11/23/24 documented as of this encounter
--- OUTSIDE RECORDS SUMMARY | 2024-12-30 09:15 | XMS_ITS | Encounter Summary ---
Author Organization [facility] Address [address] [place] [address] Care Team Providers Care Back Roller Name Role Phone David Parisi MD Primary Care Provider [phone] Uriel Mercedes MD Unavailable [phone] Reason for Referral * Diagnostic Imaging CT Scan (Routine) - Authorized Specialty Diagnoses / Procedures Referred By Contac t Referred To Contact Radiology. Diagnoses S/P lumbar spinal fusion Herniated lumbar intervertebral disc Status post lumbar spinal fusion Procedures CT Lumbar Spine w/o Contrast Uriel Mercedes MD [address] [place] [address] Phone: tel: fax: Referral ID Status Reason Start Date Expiration Date V isits Requested Visits Authorized [id number] Authorized 12/05/2024 12/05/2025 1 1 [employer] Encounter Details Date Type Department Care Team (Late st Contact Info) Description 12/05/[address] 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 [address] 1st [place] [phone] Uriel Mercedes MD [address] [place] [address] 05/29/2025 10:40 AM CDT Office Visit [facility] [address] 4th [place] [phone] Uriel Mercedes MD [address] [place] [address] Scheduled Orders Name Type Priority Associated Diagnoses [...] status documented in this encounter Care Teams Back Roller Relationship Specialty Start Date End Date David Parisi MD [address] [place] [address] PCP - General 03/16/23 Uriel Mercedes MD [address] [facility] [address] [place] [address] Assigned Musculoskeletal Provider 03/25/23 documented as of this encounter
--- OUTSIDE RECORDS SUMMARY | 2024-12-30 09:15 | XMS_ITS | Clinical Summary ---
Author Organization [facility] Address [address] [place] [address] Care Team Providers Care Rod Finisher Name Role Phone None Reported, Pcp Primary Care Provider Unavail able Source Comments Patient records contain information from all sites at [facility]. For routine questions regarding patient records, call [phone] during business hours, M-F 8:00 AM - 5:00 PM Central Time. Record requests for emergency care only can be directed to [phone] at any time.[facility] Allergies Active Allergy Reactions Criticality Noted Date [...] 10/03/2024 Assessment & Plan (10/03/2024 2:13 PM KEY FILER): Component Ref Range & Units 3 d [...] 09/23/2024 Assessment & Plan (10/03/2024 2:11 PM KEY FILER): Continue p.r.n. hydroxyzine- script sent Assessment & Plan (09/23/2024 1:43 PM KEY FILER): Continue p.r.n. hydroxyzine for 30 days for anxiety Anemia 09/23/2024 Assessment & Plan (10/03/2024 2:10 PM KEY FILER): Lab Results Component Value Date HGB 8.8 (L) 10/01/2024 Hemoglobin has improved from 7.8 to 8.8 Positive hemoccult Weekly hemoglobins Monitor for signs of active bleeding Upper endoscopy/colonoscopy recommended in future- she will discuss with PCP Celebrex was stopped Assessment & Plan (09/23/2024 1:53 PM KEY FILER): Lab Results Component Value Date HGB 8.2 (L) 09/19/2024 Positive hemoccult Weekly hemoglobins Monitor for signs of active bleeding Upper endoscopy/colonoscopy recommended in future Discontinue Celebrex Infection Total Knee Arthroplasty Subsequent Lef t 09/16/2024 Assessment & Plan (10/03/2024 2:09 PM KEY FILER): Continue with IV cefazolin via PICC line 2 g every 8 hours until 10/17/23- she will need follow up with infectious disease prior to stopping antibiotics Labs per Infectious Disease As needed acetaminophen As needed oxycodone for pain control- she has supply at home Assessment & Plan (09/23/2024 1:53 PM KEY FILER): Continue with IV cefazolin via PICC line [...] transfer Assessment & Plan (09/16/2024 1:04 PM KEY FILER): Continue with IV cefazolin via PICC line [...] 09/16/2024 Assessment & Plan (10/03/2024 2:09 PM KEY FILER): Continue ropinirole Assessment & Plan (09/23/2024 1:42 PM KEY FILER): Continue ropinirole Assessment & Plan (09/16/2024 1:16 PM KEY FILER): Continue ropinirole- requesting this between 7:30 and 8 p.m. 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 02/07/2024 Lumbago With Sciatica Right Side 02/20/2022 Seizure 04/21/2021 Assessment & Plan (10/03/2024 2:08 PM KEY FILER): Continue lacosamide and lamotrigine Assessment & Plan (09/23/2024 1:25 PM KEY FILER): Continue lacosamide and lamotrigine Assessment & Plan (09/16/2024 12:58 PM KEY FILER): Continue lacosamide and lamotrigine Spinal Stenosis Lumbar Regio n Without Neurogenic Claudication 04/29/2016 Other Intervertebral Disc Displacement Lumbar Re gion 10/23/2015 Assessment & Plan (09/16/2024 1:19 PM KEY FILER): Patient states she has had multiple spine surgeries in the past Continue Lyrica Celiac Disease 08/06/2014 Overview (09/16/2024): EGD 08/2014 celiac disease Insulin Pump Status 04/01/2014 Unsteadiness Gait Disorder Non Orthopedic 2012 Assessment & Plan (10/03/2024 2:12 PM KEY FILER): Uses walker Assessment & Plan (09/23/2024 1:43 PM KEY FILER): Continue with PT and OT Assessment & Plan (09/16/2024 1:02 PM KEY FILER): Continue with PT and OT Diabetes Mellitus Type 1 Wit h Diabetic Chronic Kidney Disease 11/16/2012 Overview (09/16/2024): Diagnosed at age 1 On insulin pump since 2007. Good control. Proliferative retinopathy with laser photocoagulation 1990 Cataract surgery, legally blind both eyes. No neuropathy. ++hypoglycemia unawareness, microalbuminuria. Assessment & Plan (10/03/2024 2:10 PM KEY FILER): She is managing her own insulin via pump Assessment & Plan (09/23/2024 1:43 PM KEY FILER): She is managing her own insulin via pump Assessment & Plan (09/16/2024 12:59 PM KEY FILER): She is managing her own insulin via pump Insomnia 09/04/2012 Overview (09/16/2024): She takes occasional ambien. Generally gets about 30 pills and lasts her 6 months. Assessment & Plan (10/03/2024 2:11 PM KEY FILER): PRN zolpidem, she has supply at home Assessment & Plan (09/23/2024 1:44 PM KEY FILER): PRN zolpidem, x30 days follow up in 2 weeks Assessment & Plan (09/16/2024 1:01 PM KEY FILER): PRN zolpidem, x14 days follow up in 2 weeks Depression Major Recurrent Partial Remission 01/2012 Assessment & Plan (10/03/2024 2:11 PM KEY FILER): Continue duloxetine Assessment & Plan (09/16/2024 1:01 PM KEY FILER): Not currently on medications Dyslipidemia 02/05/2010 Assessment & Plan (10/03/2024 2:10 PM KEY FILER): Continue atorvastatin Assessment & Plan (09/16/2024 1:00 PM KEY FILER): Continue atorvastatin Encounters Date Type Department Care Team Description 12/24/2024 Refill [facility] in [place] [address] [place] [address] Joann Gaffney APRN, C.N.P. Med Refill 11/02/2024 Refill [facility] in [place] [address] [place] [address] Joann Gaffney APRN, C.N.P. Med Refill 10/03/2024 10:30 AM KEY FILER External Outreach [facility] in [place] [address] [place] [phone] Joann Gaffney, TYRESE, C.N.P. 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 Anemia Discharge Disposition: Home or Self Care from Last 3 Months Immunizations Immunization Administration [...] on file Legal Sex Female 4:47 PM KEY FILER Gender Identity Not on file Sexual Orientation Not on file Last Filed Vital Signs Vital Sign Reading Time Taken Comments Blood Pressure 167/56 10/03/2024 7:42 AM KEY FILER Pulse 90 10/03/2024 7:42 AM KEY FILER Temperature 36.6 C (97.8 F) 10/03/2024 7:42 AM KEY FILER Respiratory Rate 18 10/03/2024 7:42 AM KEY FILER Oxygen Saturation 91% 10/03/2024 7:42 AM KEY FILER Inhaled Oxygen Concentration - - Weight 91.8 kg (202 lb 6.4 oz) 10/03/2024 7:42 A M KEY FILER Height 152.4 cm (5') 09/13/2024 9:42 AM KEY FILER Body Mass Index 39.53 09/13/2024 9:42 AM KEY FILER Plan of Treatment Upcoming Encounters Date Type Department Care Team (Late st Contact Info) Description 02/19/2025 10:15 AM CDT Office Visit Department of Neurology in [place], [place] [address] [place] [phone] Casa Larose M.D. [address] [place] [address] Health Maintenance Due Date Last Done Comments [...] 02/26/2025 02/27/2024, 01/31, 11/08/2022, Additional history exists Creatinine Level (Kidney Function Test) 12/13/2025 12/13/2024, 10/01/2024, 09/30/2024, Additional history exists Potassium Level 12/13/2025 12/13/2024, 09/03, 09/13/2024, Additional history exists Sodium Level 12/13/2025 12/13/2024, 09/03, 09/13/2024, Additional history exists Cologuard 08/21/2026 08/21/2023 Colorectal [...] WITHOUT DIFFERENTIAL, B Routine 10/01/2024 2:55 PM KEY FILER Anemia CREATININE WITH EGFR, S/P Routine 10/01/2024 2:55 PM KEY FILER Anemia C-REACTIVE PROTEIN (CRP), S/P Routine 10/01/2024 2:55 PM KEY FILER Anemia ALANINE AMINOTRANSFERASE (ALT), S/P Routine 10/01/2024 2:55 PM KEY FILER Anemia BASIC METABOLIC PANEL, S/P Routine 09/30/2024 1:00 PM KEY FILER Failure Heart Low Output Syndrome (HCC) HEMOGLOBIN A1C, B Routine 10/25/2019 LIPID PANEL, S Routine 07/19/2019 from Last 3 Months or Most Recently Relevant to Health Maintenance Results * (ABNORMAL) CBC without Differential (10/01/2024 2:55 PM KEY FILER) Hemoglobin 8.8(L) 11.6 - 15.0 g/dL 10/01/2024 3:29 PM KEY FILER NPRG Hematocrit 28.2(L) 35.5 - 44.9 % 10/01/2024 3:29 PM KEY FILER NPRG Erythrocytes 2.98(L) 3.92 - 5.13 x10(12)/L 10/01/2024 3:29 PM KEY FILER NPRG MCV 94.6 78.2 - 97.9 fL 10/01/2024 3:29 PM KEY FILER NPRG RBC Distrib Width 15.8 12.2 - 16.1 % 10/01/2024 3:29 PM KEY FILER NPRG Platelet Count 287 157 - 371 x10(9)/L 10/01/2024 3:29 PM KEY FILER NPRG Leukocytes 7.7 3.4 - 9.6 x10(9)/L 10/01/2024 3:29 PM KEY FILER NPRG Blood (Blood, Venous) 10/01/2024 2:55 PM KEY FILER 10/01/2024 3:19 PM KEY FILER us Joann Gaffney APRN, C.N.P. LAB BLOOD ADD-ON Fi nal Result [facility] [address] [place] [address], [facility] NPRG [place] [address] [place] [address] * (ABNORMAL) CRP (C-Reactive Protein) (10/01/2024 2:55 PM KEY FILER) C-Reactive Protein (CRP), P 53.4(H) <5.0 mg/L 10/01/2024 3:33 PM KEY FILER NPRG Blood (Blood, Venous) 10/01/2024 2:55 PM KEY FILER 10/01/2024 3:19 PM KEY FILER us Joann Gaffney APRN, C.N.P. LAB BLOOD ADD-ON Fi nal Result [facility] [address] [place] [address], [facility] NPRG [place] [address] [place] [address] * (ABNORMAL) ALT (Alanine Aminotransferase) (10/01/2024 2:55 PM KEY FILER) Alanine Aminotransferase (ALT), P <5(L) 7 - 45 U/L 10/01/2024 4:28 PM KEY FILER NPRG Blood (Blood, Venous) 10/01/2024 2:55 PM KEY FILER 10/01/2024 3:19 PM KEY FILER us Joann Gaffney APRN, C.N.P. LAB BLOOD ADD-ON Fi nal Result [facility] [address] [place] [address], [facility] NPRG [place] [address] [place] [address] * Creatinine with Estimated GFR (10/01/2024 2:55 PM KEY FILER) Creatinine 0.69 0.59 - 1.04 mg/dL 10/01/2024 3:33 PM KEY FILER NPRG Estimated GFR (eGFR) >90 >=60 mL/min/BSA 10/01/2024 3:33 PM KEY FILER NPRG Comment: Estimated GFR calculated using the 2020 CKD_EPI creatinine equation. Blood (Blood, Venous) 10/01/2024 2:55 PM KEY FILER 10/01/2024 3:19 PM KEY FILER Kip Valdez APRNN.PEmmanuel LAB BLOOD ADD-ON Fi nal Result [facility] [address] [place] [address], [place] NPRG [facility] [address] [place] [address] * Hemoglobin A1c (10/25/2019) EXT Hemoglobin A1c, B 6.8 OTHER (SPECIFY IN PROGRAMMING COORDINATOR) Blood (Blood, Venous) Ordering Provider External M.D. LAB BLOOD ADD-ON Final Result Performing Organization Address [facility] Co de Phone Number OTHER (SPECIFY IN PROGRAMMING COORDINATOR) N/A * Lipid Panel (07/19/2019) EXT Cholesterol, Total, S 151 OTHER (SPECIFY IN PROGRAMMING COORDINATOR) EXT Triglycerides, S 120 OTHER (SPECIFY IN PROGRAMMING COORDINATOR) EXT Cholesterol, HDL, S 59 OTHER (SPECIFY IN PROGRAMMING COORDINATOR) Blood (Blood, Venous) Ordering Provider External M.D. 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
--- NOTE | 2024-12-30 09:38 | CRLHL7_ITS ---
For Patients: As a result of the Cures Act, medical imaging exams and procedure reports are released immediately into your electronic medical record. You may view this report before your referring provider. If you have questions, please contact your health care provider. INDICATION: Fall, forehead trauma TECHNIQUE: CT maxillofacial without contrast. COMPARISON: None FINDINGS: Facial bones: No fractures or bone lesions. Specifically the nasal bones, temporomandibular joints, maxilla and mandible appear intact. Orbits and globes: Unremarkable. Globes are intact. No sign of intraorbital hemorrhage or emphysema. Sinuses: Bilateral jennifer bullosa. Soft tissues: Unremarkable. IMPRESSION: Unremarkable maxillofacial CT. No evidence of fracture. Please note that all CT scans at this facility use dose modulation, iterative reconstruction, and/or weight-based dosing when appropriate to reduce radiation dose to as low as reasonably achievable. Dictated by Lucien Bear MD @ 12/30/2024 10:35:14 AM (Electronically Signed)
--- NOTE | 2024-12-30 09:38 | CRLHL7_ITS ---
For Patients: As a result of the Century Cures Act, medical imaging exams and procedure reports are released immediately into your electronic medical record. You may view this report before your referring provider. If you have questions, please contact your health care provider. INDICATION: Fall, hit forehead TECHNIQUE: CT cervical spine without contrast. COMPARISON: Cervical spine CT 07 03 2014 FINDINGS: Vertebrae: No evidence of fracture. Straightening to kyphosis of the cervical spine. Status post anterior cervical discectomy and fusion at C5 through C7. Intervertebral graft at the C5-6 and C6-7 levels. Anterior plate and screws with posterior rods and facet screws without evidence of hardware fracture. Undulation of the superior endplate of T2, likely part of a Schmorl`s node. Discs and facet joints: Scattered facet hypertrophy without significant stenosis. Extraspinal findings: Prevertebral soft tissues, visualized airway, and visualized lungs are unremarkable. IMPRESSION: Status post C5 through C7 fusion without evidence of acute fracture. Please note that all CT scans at this facility use dose modulation, iterative reconstruction, and/or weight-based dosing when appropriate to reduce radiation dose to as low as reasonably achievable. Dictated by Lucien Bear MD @ 12/30/2024 10:33:18 AM (Electronically Signed)
--- NOTE | 2024-12-30 09:38 | CRLHL7_ITS ---
For Patients: As a result of the Century Cures Act, medical imaging exams and procedure reports are released immediately into your electronic medical record. You may view this report before your referring provider. If you have questions, please contact your health care provider. INDICATION: Fall, hit forehead TECHNIQUE: CT head without contrast. COMPARISON: Head CT 12/19/2024 FINDINGS: CSF spaces: Within normal limits for age. Brain parenchyma: The joy-white differentiation is normal. No sign of mass, hemorrhage, or midline shift. Skull base and calvarium: The visualized paranasal sinuses and mastoid air cells demonstrate no acute or significant findings. The visualized orbits are grossly unremarkable. No skull fractures. IMPRESSION: Unremarkable noncontrast head CT. Please note that all CT scans at this facility use dose modulation, iterative reconstruction, and/or weight-based dosing when appropriate to reduce radiation dose to as low as reasonably achievable. Dictated by Lucien Bear MD @ 12/30/2024 10:20:02 AM (Electronically Signed)
[2024-12-30 09:43] LABS: Troponin, Point-of-Care* 0.01 ng/ml (0.01-0.04)
[2024-12-30 09:45] LABS: Basophils Percent Auto 0.7 % (0.0-3.0); Eosinophils Percent Auto 5.5 % (0.0-7.0); Hematocrit 41.4 % (33.0-51.0); Hemoglobin* 13.1 gm/dL (12.0-16.0); Immature Granulocytes Pct Auto 0.1 %; Mean Corpuscular HGB Conc 32 gm/dL (32-36); Mean Corpuscular Hemoglobin 28 pg (26-34); Mean Corpuscular Volume 89 fL (80-100); Monocytes Percent Auto 6.6 % (0.0-11.0); Neutrophils Percent Auto 72.1 % (42.0-72.0); Platelet Count* 271 K/uL (140-440); RDW Coefficient of Variation % 16.1 % (11.5-15.5); Red Blood Count 4.64 m/uL (4.00-5.20); White Blood Count* 11.77 K/uL (4.50-11.00)
[2024-12-30 09:46] LABS: Slide Review Reflex No
[2024-12-30 09:53] LABS: Chloride* 100 mmol/L (96-114); Sodium* 138 mmol/L (135-149)
[2024-12-30 09:54] LABS: Potassium* 4.9 mmol/L (3.6-5.1)
[2024-12-30 09:56] LABS: Blood Urea Nitrogen* 18 mg/dL (7-30); Creatinine* 0.8 mg/dL (0.5-1.5); Est. Creatinine Clearance* 62.84; Estimated Glomerular Filt Rate 87 ml/min
[2024-12-30 09:57] LABS: Anion Gap 8 mEq/L (7-15); Calcium* 9.4 mg/dL (8.4-10.6); Carbon Dioxide* 30 mmol/L (20-32); Glucose* 339 mg/dL (60-115)
[2024-12-30 10:13] LABS: NT Pro B Type NatriureticPept* 51 pg/mL; Troponin I* < 0.01 ng/mL (0.01-0.04)
--- NOTE | 2024-12-30 10:33 | ED.FALL ---
HPI - Fall General Date Seen: 12/30/24 <David Malcolm Harsh - Last Filed: 12/30/24 11:38> Chief Complaint: Fall/Minor Trauma <David House - Last Filed: 12/30/24 11:38> Stated Complaint: TTA <David House - Last Filed: 12/30/24 11:38> Time Seen by Provider: 12/30/24 09:22 <David House - Last Filed: 12/30/24 11:38> Source: patient and EMS <David Huose - Last Filed: 12/30/24 11:38> Mode of arrival: EMS <David House Last Filed: 12/30/24 11:38> Limitations: no limitations <David House Last Filed: 12/30/24 11:38> History of Present Illness HPI Narrative: Patient is a 54-year-old female presenting to the emergency department after a fall. She was going to an appointment for an ultrasound when she slipped on the ice and hit her forehead. She then went into her clinic's office and was found to be very tachycardic and EKG was done showing a right bundle-branch block with a rate of 144 beats per minute. They tried to get the heart rate down at the clinic but it would not decreased [facility] and they stay device was stable other than the tachycardia. She is hyperglycemic but she states that is because she took off her insulin pump as she has been NPO for this ultrasound and did not want to go hypoglycemic. States right after she fell she was feeling dizzy and was having palpitations. No history of palpitations that she is aware of. She does have a history of intermittent dizziness and she can save this dizziness feels different or not. Denies fevers, chills, chest pain, shortness of breath, abdominal pain, headache, lightheadedness, weakness, numbness. Does have baseline tunnel vision she states from previous eye issues her vision is not seem any different than normal. <David P Harsh, - Last Filed: 12/30/24 11:38> Related Data Home Medications: Home Medications ?Medication ?Instructions ?Recorded ?Confirmed duloxetine 20 mg capsule,delayed 40 mg PO DAILY 07/03/22 12/30/24 release lamotrigine 200 mg tablet,extended 200 mg PO HS 07/03/22 12/30/24 release 24 hr lamotrigine 250 mg tablet,extended 250 mg PO HS 07/03/22 12/30/24 release 24 hr meclizine 12.5 mg tablet 12.5 mg PO TID PRN 07/03/22 12/30/24 atorvastatin 10 mg tablet 10 mg PO QPM 02/28/23 12/30/24 glucagon 1 mg/0.2 mL subcutaneous 1 mg subcut DAILY PRN 06/28/24 12/30/24 syringe (Bubbles PFS 1-Pack) ropinirole 0.5 mg tablet 1 mg PO HS 06/28/24 12/30/24 albuterol sulfate 2.5 mg/3 mL 2.5 mg inhalation Q4H PRN 08/14/24 12/30/24 (0.083 %) solution for nebulization amlodipine 5 mg tablet 5 mg PO DAILY 08/14/24 12/30/24 ascorbic acid (vitamin C) 500 mg 500 mg PO DAILY 08/14/24 12/30/24 tablet cholecalciferol (vitamin D3) 25 50 mcg PO DAILY 08/14/24 12/30/24 mcg (1,000 unit) tablet ferrous sulfate 325 mg (65 mg 325 mg PO DAILY 08/14/24 12/30/24 iron) tablet (Feosol) insulin lispro 100 unit/mL 50 - 60 unit subcut DAILY 08/14/24 12/30/24 subcutaneous solution (Admelog U-100 Insulin lispro) insulin pump cart,auto,BT,G6/7 #5 ea 10/01/24 12/30/24 (Omnipod 5 G6-G7 Pods (Gen 5) subcutaneous cartridge) Calcium 500 mg PO BID 10/08/24 12/30/24 Multiple vitamin with iron 1 tab PO DAILY 10/08/24 12/30/24 furosemide 20 mg tablet 40 mg PO QAM 10/08/24 12/30/24 doxycycline hyclate 100 mg tablet 100 mg PO BID 10/22/24 12/30/24 albuterol sulfate 90 mcg/actuation 2 inh inhalation Q4H PRN 12/19/24 12/30/24 aerosol inhaler aspirin 81 mg tablet,delayed 81 mg PO DAILY 12/19/24 12/30/24 release lisinopril 10 mg tablet 10 mg PO DAILY 12/19/24 12/30/24 melatonin 5 mg capsule 5 mg PO HS 12/19/24 12/30/24 omeprazole 20 mg capsule,delayed 20 mg PO DAILY 12/19/24 12/30/24 release ondansetron 4 mg disintegrating 4 mg PO Q8H PRN 12/19/24 12/30/24 tablet pregabalin 150 mg capsule 150 mg PO BID 12/19/24 12/30/24 Previous Rx's ?Medication ?Instructions ?Recorded celecoxib 100 mg capsule 100 mg PO BID #60 caps 08/16/24 lacosamide 100 mg tablet 100 mg PO BID #60 tabs 09/12/24 zolpidem 5 mg tablet 5 mg PO HS PRN 30 days #30 tabs 09/12/24 prochlorperazine maleate 10 mg 10 mg PO Q8H PRN #15 tabs 12/20/24 tablet (Compazine) <David House DO - Last Filed: 12/30/24 11:38> Allergies/Adverse Reactions: Allergies Allergy/AdvReac Type Severity Reaction Status Date / Time wheat Allergy Unknown Dizziness Verified 12/30/24 09:39 ibuprofen Allergy retinal Verified 12/30/24 09:39 hemorrhage penicillin V Allergy Rash Verified 12/30/24 09:39 <David House DO - Last Filed: 12/30/24 11:38> Review of Systems Status of ROS: Reports: 10 or more systems reviewed and unremarkable except as noted in History and below <David House DO - Last Filed: 12/30/24 11:38> [facility] Medical History: Medical History Pulmonary nodule ?R91.1 - Solitary pulmonary nodule (ICD-10) Restless leg syndrome ?G25.81 - Restless legs syndrome (ICD-10) Dyslipidemia ?E78.5 - Hyperlipidemia, unspecified (ICD-10) Hypothyroidism ?E03.9 - Hypothyroidism, unspecified (ICD-10) Depression ?F32.A - Depression, unspecified (ICD-10) Hypertension ?I10 - Essential (primary) hypertension (ICD-10) Seizure disorder ?G40.909 - Epilepsy, unspecified, not intractable, without status epilepticus (ICD-10) Right-sided low back pain with right-sided sciatica ?M54.41 - Lumbago with sciatica, right side (ICD-10) Spinal stenosis of lumbar region without neurogenic claudication ?M48.061 - Spinal stenosis, lumbar region without neurogenic claudication (ICD-10) Lumbar disc herniation ?M51.26 - Other intervertebral disc displacement, lumbar region (ICD-10) Celiac disease ?K90.0 - Celiac disease (ICD-10) <David House DO - Last Filed: 12/30/24 11:38> Surgical History: Surgical History Status post left knee surgery (09/11/24) ?Z98.890 - Other specified postprocedural states (ICD-10) History of arthroplasty of left knee (08/14/24) ?Z96.652 - Presence of left artificial knee joint (ICD-10) History of lumbar fusion (03/20/24) ?Z98.1 - Arthrodesis status (ICD-10) History of lumbar laminectomy for spinal cord decompression (02/22/22) ?Z98.890 - Other specified postprocedural states (ICD-10) History of laminectomy (01/14/22) ?Z98.890 - Other specified postprocedural states (ICD-10) History of endometrial ablation (2005) ?Z98.890 - Other specified postprocedural states (ICD-10) History of esophagogastroduodenoscopy (EGD) (08/2014) ?Z98.890 - Other specified postprocedural states (ICD-10) H/O bilateral cataract extraction (1987) ?Z98.41 - Cataract extraction status, right eye (ICD-10) ?Z98.42 - Cataract extraction status, left eye (ICD-10) Status post lumbar spine surgery for decompression of spinal cord (06/18/19) ?Z98.890 - Other specified postprocedural states (ICD-10) History of lumbar fusion (04/26/16) ?Z98.1 - Arthrodesis status (ICD-10) History of hysteroscopy ?Z98.890 - Other specified postprocedural states (ICD-10) History of carpal tunnel surgery of left wrist (09/28/07) ?Z98.890 - Other specified postprocedural states (ICD-10) S/P cervical spinal fusion (03/18/10) ?Z98.1 - Arthrodesis status (ICD-10) History of carpal tunnel surgery of right wrist (07/15/08) ?Z98.890 - Other specified postprocedural states (ICD-10) History of appendectomy (2001) ?Z90.49 - Acquired absence of other specified parts of digestive tract (ICD-10) <David House DO - Last Filed: 12/30/24 11:38> Social History: Social History Narrative: Lives independently, [facility] [place] Sister patch would be medical decision maker if needed Nonsmoker, no concerning alcohol use Requests DNI status, amenable to trial of CPR What is your current living situation?: I presently have a place to live Problems where you live: no known problems Problems where you live details: na In the past 12 months, utilities in danger of being shut off: no In past 12 months, lack of transportation kept you from medical appts, meetings, work, or getting things needed for daily living: no In the past 12 mos, have been you worried that your food would run out before you had money to buy more?: never true In the past 12 mos, the food you bought just didn't last and you didn't have money to buy more?: never true Highest level of school completed/degree received: 12th grade, no diploma Smoking Status: Never smoker Do you use any of these nicotine containing products: None Second hand tobacco smoke exposure: No How often do you have a drink containing alcohol: monthly or less How many standard drinks containing alcohol do you have on a typical day: 1 or 2 How often do you have six or more drinks on one occasion: Never AUDIT-C Alcohol total score: 1 Non-prescribed substance use: denies use Caffeine: Yes (coffee) How often does anyone, including family, friends and others, physically hurt you: never How often does anyone, including family, friends and others, insult or talk down to you: never How often does anyone, including family, friends and others, threaten you with harm: never How often does anyone, including family, friends and others, scream or curse at you: never Are you using contraception or practicing any form of control: No service: No <David House DO - Last Filed: 12/30/24 11:38> Exam Narrative: Exam Narrative: Airway: Airway patent, Breathing: Good bilateral air movement, no signs of tracheal deviation normal appearing chest wall movement, oxygenating appropriately Circulation: No signs of obvious hemorrhage, pulses +2 bilaterally in all extremities Disability: GCS 15 Constitutional: Pt is oriented to person, place, and time. Pt appears well-developed and well-nourished. HENT: Head: Small bruising to forehead. Mouth/Throat: Oropharynx is clear and moist. No hematomas or lacerations or abrasions to face or scalp OP clear, no blood, no malocclusion, dentition intact Nares clear, no nasal septal hematoma TMs clear, no hemotympanum Midface stable Eyes: Conjunctivae and EOM are normal. Pupils are equal, round, and reactive to light. Neck: C-spine midline nontender, no step-offs Cardiovascular: Normal rate, regular rhythm and normal heart sounds. Pulmonary/Chest: Effort normal and breath sounds normal. No respiratory distress. He has no wheezes. CTA bilaterally Abdominal: Soft. Bowel sounds are normal. Pt exhibits no distension. There is no tenderness. Musculoskeletal: No bony tenderness to extremities, no deformities, full ROM extremities, Chest wall stable, Pelvis stable and non-tender, No vertebral TTP and spine without stepoffs Neurological: Pt is alert and oriented to person, place, and time., Moving all extremities willfully, able to wiggle all fingers and toes, Sensation grossly intact, GCS 15 Skin: Skin is warm and dry. No abrasions, no lacerations Psychiatric: Behavior is appropriate for situation <David House DO - Last Filed: 12/30/24 11:38> Const: Vital Signs, click to edit/add: Vital Signs - 24 hr 12/30/24 09:22 12/30/24 09:34 12/30/24 10:02 Temperature 97.6 F Pulse Rate Pulse Rate [Pulse Oximeter] 140 H Respiratory Rate 18 18 Blood Pressure Blood Pressure [Ri ght Forearm] 124/114 H Pulse Oximetry 98 98 Oxygen Delivery Me thod Nasal Cannula Room Air Oxygen Flow Rate 2 12/30/24 10:08 12/30/24 10:12 12/30/24 10:13 Temperature Pulse Rate 141 H 141 H 142 H Pulse Rate [Pulse Oximeter] Respiratory Rate 14 18 19 Blood Pressure 141/68 H 109/68 Blood Pressure [Ri ght Forearm] Pulse Oximetry 95 98 96 Oxygen Delivery Me thod Oxygen Flow Rate 2 12/30/24 10:15 12/30/24 10:22 12/30/24 10:30 Temperature Pulse Rate 141 H 144 H 101 H Pulse Rate [Pulse Oximeter] Respiratory Rate 16 20 13 Blood Pressure 99/62 Blood Pressure [Ri ght Forearm] Pulse Oximetry 96 96 89 Oxygen Delivery Me thod Oxygen Flow Rate 2 2 8 12/30/24 10:32 12/30/24 10:37 12/30/24 10:42 Temperature Pulse Rate 97 98 97 Pulse Rate [Pulse Oximeter] Respiratory Rate 14 17 12 Blood Pressure 114/55 L 103/54 L 101/48 L Blood Pressure [Ri ght Forearm] Pulse Oximetry 96 97 98 Oxygen Delivery Me thod Oxygen Flow Rate 2 12/30/24 10:45 12/30/24 10:47 12/30/24 10:52 Temperature Pulse Rate 97 98 97 Pulse Rate [Pulse Oximeter] Respiratory Rate 12 13 13 Blood Pressure 103/69 110/60 Blood Pressure [Ri ght Forearm] Pulse Oximetry 98 98 98 Oxygen Delivery Me thod Oxygen Flow Rate 12/30/24 10:53 12/30/24 10:57 12/30/24 11:00 Temperature Pulse Rate 97 95 95 Pulse Rate [Pulse Oximeter] Respiratory Rate 15 16 15 Blood Pressure 99/52 L Blood Pressure [Ri ght Forearm] Pulse Oximetry 99 97 97 Oxygen Delivery Me thod Room Air Oxygen Flow Rate 12/30/24 11:02 12/30/24 11:07 12/30/24 11:12 Temperature Pulse Rate 94 95 94 Pulse Rate [Pulse Oximeter] Respiratory Rate 12 13 13 Blood Pressure 97/57 L 113/55 L 98/53 L Blood Pressure [Ri ght Forearm] Pulse Oximetry 98 97 97 Oxygen Delivery Me thod Oxygen Flow Rate 12/30/24 11:15 12/30/24 11:17 12/30/24 11:22 Temperature Pulse Rate 94 94 93 Pulse Rate [Pulse Oximeter] Respiratory Rate 14 13 12 Blood Pressure 107/52 L 104/56 L Blood Pressure [Ri ght Forearm] Pulse Oximetry 97 98 98 Oxygen Delivery Me thod Oxygen Flow Rate <David Malcolm Harsh, DO - Last Filed: 12/30/24 11:38> Vital Signs, click to edit/add: Vital Signs - 24 hr 12/30/24 09:22 12/30/24 09:34 12/30/24 10:02 Temperature 97.6 F Pulse Rate Pulse Rate [Pulse Oximeter] 140 H Respiratory Rate 18 18 Blood Pressure Blood Pressure [Ri ght Forearm] 124/114 H Pulse Oximetry 98 98 Oxygen Delivery Me thod Nasal Cannula Room Air Oxygen Flow Rate 2 12/30/24 10:08 12/30/24 10:12 12/30/24 10:13 Temperature Pulse Rate 141 H 141 H 142 H Pulse Rate [Pulse Oximeter] Respiratory Rate 14 18 19 Blood Pressure 141/68 H 109/68 Blood Pressure [Ri ght Forearm] Pulse Oximetry 95 98 96 Oxygen Delivery Me thod Oxygen Flow Rate 2 12/30/24 10:15 12/30/24 10:22 12/30/24 10:30 Temperature Pulse Rate 141 H 144 H 101 H Pulse Rate [Pulse Oximeter] Respiratory Rate 16 20 13 Blood Pressure 99/62 Blood Pressure [Ri ght Forearm] Pulse Oximetry 96 96 89 Oxygen Delivery Me thod Oxygen Flow Rate 2 2 8 12/30/24 10:32 12/30/24 10:37 12/30/24 10:42 Temperature Pulse Rate 97 98 97 Pulse Rate [Pulse Oximeter] Respiratory Rate 14 17 12 Blood Pressure 114/55 L 103/54 L 101/48 L Blood Pressure [Ri ght Forearm] Pulse Oximetry 96 97 98 Oxygen Delivery Me thod Oxygen Flow Rate 2 12/30/24 10:45 12/30/24 10:47 12/30/24 10:52 Temperature Pulse Rate 97 98 97 Pulse Rate [Pulse Oximeter] Respiratory Rate 12 13 13 Blood Pressure 103/69 110/60 Blood Pressure [Ri ght Forearm] Pulse Oximetry 98 98 98 Oxygen Delivery Me thod Oxygen Flow Rate 12/30/24 10:53 12/30/24 10:57 12/30/24 11:00 Temperature Pulse Rate 97 95 95 Pulse Rate [Pulse Oximeter] Respiratory Rate 15 16 15 Blood Pressure 99/52 L Blood Pressure [Ri ght Forearm] Pulse Oximetry 99 97 97 Oxygen Delivery Me thod Room Air Oxygen Flow Rate 12/30/24 11:02 12/30/24 11:07 12/30/24 11:12 Temperature Pulse Rate 94 95 94 Pulse Rate [Pulse Oximeter] Respiratory Rate 12 13 13 Blood Pressure 97/57 L 113/55 L 98/53 L Blood Pressure [Ri ght Forearm] Pulse Oximetry 98 97 97 Oxygen Delivery Me thod Oxygen Flow Rate 12/30/24 11:15 12/30/24 11:17 12/30/24 11:22 Temperature Pulse Rate 94 94 93 Pulse Rate [Pulse Oximeter] Respiratory Rate 14 13 12 Blood Pressure 107/52 L 104/56 L Blood Pressure [Ri ght Forearm] Pulse Oximetry 97 98 98 Oxygen Delivery Me thod Oxygen Flow Rate <Black Farooq MD - Last Filed: 12/30/24 12:30> Course Vital Signs Vital signs: Initial Vital Signs Respiratory Effort Normal, Spontaneous, Non-Labored 12/30/24 09:22 Respiratory Depth Normal 12/30/24 09:22 Respiratory Pattern Normal 12/30/24 09:22 Pulse Oximetry 98 12/30/24 09:22 Oxygen Delivery Method Nasal Cannula 12/30/24 09:22 Oxygen Flow Rate 2 12/30/24 09:22 Vital Signs Pulse Oximetry 98 12/30/24 09:22 Oxygen Delivery Method Nasal Cannula 12/30/24 09:22 Oxygen Flow Rate 2 12/30/24 09:22 Temperature 97.6 F 12/30/24 09:34 Pulse Rate 93 12/30/24 11:22 Respiratory Rate 12 12/30/24 11:22 Blood Pressure 104/56 L 12/30/24 11:22 Pulse Oximetry 98 12/30/24 11:22 Oxygen Delivery Method Room Air 12/30/24 10:57 Oxygen Flow Rate 2 12/30/24 10:32 <David House DO - Last Filed: 12/30/24 11:38> Initial Vital Signs Respiratory Effort Normal, Spontaneous, Non-Labored 12/30/24 09:22 Respiratory Depth Normal 12/30/24 09:22 Respiratory Pattern Normal 12/30/24 09:22 Pulse Oximetry 98 12/30/24 09:22 Oxygen Delivery Method Nasal Cannula 12/30/24 09:22 Oxygen Flow Rate 2 12/30/24 09:22 Vital Signs Pulse Oximetry 98 12/30/24 09:22 Oxygen Delivery Method Nasal Cannula 12/30/24 09:22 Oxygen Flow Rate 2 12/30/24 09:22 Temperature 97.6 F 12/30/24 09:34 Pulse Rate 93 12/30/24 11:22 Respiratory Rate 12 12/30/24 11:22 Blood Pressure 104/56 L 12/30/24 11:22 Pulse Oximetry 98 12/30/24 11:22 Oxygen Delivery Method Room Air 12/30/24 10:57 Oxygen Flow Rate 2 12/30/24 10:32 <Black Farooq MD - Last Filed: 12/30/24 12:30> MDM - Fall MDM Narrative Medical decision making narrative: Patient is a 54-year-old female presenting to the emergency department after a fall. She was brought in and TT a was called. She did not have any loss of consciousness. I am not heart min since certain why it was concerning CTA but it may be due to the new onset tachycardia from the fall. I went in the room immediately to evaluate the patient. She appears stable at this time but is tachycardic. I reviewed the EKG is difficult to say if this is a flutter, sinus tachycardia and a right bundle-branch block, V-tach as she does have a widening QRS. I will consult Cardiology to get their opinion of this EKG. Also order a CBC, BMP, troponin, BNP, EKG. Will also CT scans of the head, face, cervical spine. I spoke to the on-call operating engineer apprentice through [employer] and his a pain is is most likely a flutter and recommends cardioversion along with a Zio patch. Does not need repeat echo as she had one 2 months ago. My colleague helped do the sedation. Cardioversion was performed and she is now back into normal sinus rhythm. Patient is doing well and her vital signs are stable. Lab work shows no concerning abnormalities. She was able to ambulate without issues. Imaging shows no concerning findings. At this time she is safe for discharge but will need close outpatient follow-up with Cardiology. She states she understands. <David House DO - Last Filed: 12/30/24 11:38> Patient is a 54-year-old female presenting to the emergency department after a fall. She was brought in and TT a was called. She did not have any loss of consciousness. I am not heart min since certain why it was concerning CTA but it may be due to the new onset tachycardia from the fall. I went in the room immediately to evaluate the patient. She appears stable at this time but is tachycardic. I reviewed the EKG is difficult to say if this is a flutter, sinus tachycardia and a right bundle-branch block, V-tach as she does have a widening QRS. I will consult Cardiology to get their opinion of this EKG. Also order a CBC, BMP, troponin, BNP, EKG. Will also CT scans of the head, face, cervical spine. I spoke to the on-call operating engineer apprentice through [employer] and his a pain is is most likely a flutter and recommends cardioversion along with a Zio patch. Does not need repeat echo as she had one 2 months ago. My colleague helped do the sedation. Cardioversion was performed and she is now back into normal sinus rhythm. Patient is doing well and her vital signs are stable. Lab work shows no concerning abnormalities. She was able to ambulate without issues. Imaging shows no concerning findings. At this time she is safe for discharge but will need close outpatient follow-up with Cardiology. She states she understands. I assisted Dr. Rudy higgins in sedation with propofol for synchronized electrocardioversion. After and acquiring informed consent the patient received 80 mg of propofol which brought adequate sedation for cardioversion to occur. The patient maintain sufficient oximetry without any further assistance. She recovered from anesthesia appropriately without incident. <Black Farooq MD - Last Filed: 12/30/24 12:30> Lab Data Labs: Lab Results 12/30/24 Range/Units 09:23 WBC 11.77 H (4.50-11.00) K/uL RBC 4.64 (4.00-5.20) m/uL Hgb 13.1 (12.0-16.0) gm/dL Hct 41.4 (33.0-51.0) % MCV 89 (80-100) fL MCH 28 (26-34) pg MCHC 32 (32-36) gm/dL RDW Coeff of Eliud 16.1 H (11.5-15.5) % Plt Count 271 (140-440) K/uL Neut % (Auto) 72.1 H (42.0-72.0) % Lymph % (Auto) 15.0 L (20-44) % Glenn % (Auto) 6.6 (0.0-11.0) % Eos % (Auto) 5.5 (0.0-7.0) % Baso % (Auto) 0.7 (0.0-3.0) % Neut # (Auto) 8.50 H (1.7-7.0) K/uL Lymph # (Auto) 1.80 (0.90-2.90) K/uL Glenn # (Auto) 0.80 (0.00-0.90) K/UL Eos # (Auto) 0.60 H (0.00-0.50) K/uL Baso # (Auto) 0.10 (0.00-0.30) K/uL Abs Immat Gran (auto) 0.00 (0.00-0.30) K/uL Imm/Tot Granulo (auto) 0.1 % Sodium 138 (135-149) mmol/L Potassium 4.9 (3.6-5.1) mmol/L Chloride 100 (96-114) mmol/L Carbon Dioxide 30 (20-32) mmol/L Anion Gap 8 (7-15) mEq/L BUN 18 (7-30) mg/dL Creatinine 0.8 (0.5-1.5) mg/dL Estimated Creat Clear 62.84 Estimated GFR 87 ml/min Glucose 339 H (60-115) mg/dL Calcium 9.4 (8.4-10.6) mg/dL Troponin I < 0.01 (0.01-0.04) ng/mL NT-Pro-B Natriuret Pep 51 pg/mL POC Troponin I 0.01 (0.01-0.04) ng/ml <David House, DO - Last Filed: 12/30/24 11:38> Lab Results 12/30/24 Range/Units 09:23 WBC 11.77 H (4.50-11.00) K/uL RBC 4.64 (4.00-5.20) m/uL Hgb 13.1 (12.0-16.0) gm/dL Hct 41.4 (33.0-51.0) % MCV 89 (80-100) fL MCH 28 (26-34) pg MCHC 32 (32-36) gm/dL RDW Coeff of Eliud 16.1 H (11.5-15.5) % Plt Count 271 (140-440) K/uL Neut % (Auto) 72.1 H (42.0-72.0) % Lymph % (Auto) 15.0 L (20-44) % Glenn % (Auto) 6.6 (0.0-11.0) % Eos % (Auto) 5.5 (0.0-7.0) % Baso % (Auto) 0.7 (0.0-3.0) % Neut # (Auto) 8.50 H (1.7-7.0) K/uL Lymph # (Auto) 1.80 (0.90-2.90) K/uL Glenn # (Auto) 0.80 (0.00-0.90) K/UL Eos # (Auto) 0.60 H (0.00-0.50) K/uL Baso # (Auto) 0.10 (0.00-0.30) K/uL Abs Immat Gran (auto) 0.00 (0.00-0.30) K/uL Imm/Tot Granulo (auto) 0.1 % Sodium 138 (135-149) mmol/L Potassium 4.9 (3.6-5.1) mmol/L Chloride 100 (96-114) mmol/L Carbon Dioxide 30 (20-32) mmol/L Anion Gap 8 (7-15) mEq/L BUN 18 (7-30) mg/dL Creatinine 0.8 (0.5-1.5) mg/dL Estimated Creat Clear 62.84 Estimated GFR 87 ml/min Glucose 339 H (60-115) mg/dL Calcium 9.4 (8.4-10.6) mg/dL Troponin I < 0.01 (0.01-0.04) ng/mL NT-Pro-B Natriuret Pep 51 pg/mL POC Troponin I 0.01 (0.01-0.04) ng/ml <Black Farooq MD - Last Filed: 12/30/24 12:30> Imaging Data CT scan head: Attestation: I have reviewed the pertinent imaging results. <David House DO - Last Filed: 12/30/24 11:38> Radiologist's impression: Unremarkable noncontrast head CT. Please note that all CT scans at this facility use dose modulation, iterative reconstruction, and/or weight-based dosing when appropriate to reduce radiation dose to as low as reasonably achievable. Dictated by Lucien Bear MD @ 12/30/2024 10:20:02 AM <David House DO - Last Filed: 12/30/24 11:38> CT scan cervical spine: Attestation: I have reviewed the pertinent imaging results. <David House DO - Last Filed: 12/30/24 11:38> Radiologist's impression: Status post C5 through C7 fusion without evidence of acute fracture. Please note that all CT scans at this facility use dose modulation, iterative reconstruction, and/or weight-based dosing when appropriate to reduce radiation dose to as low as reasonably achievable. Dictated by Lucien Bear MD @ 12/30/2024 10:33:18 AM <David House DO - Last Filed: 12/30/24 11:38> CT scan facial bones: Attestation: I have reviewed the pertinent imaging results. <David House DO - Last Filed: 12/30/24 11:38> Radiologist's impression: Unremarkable maxillofacial CT. No evidence of fracture. Please note that all CT scans at this facility use dose modulation, iterative reconstruction, and/or weight-based dosing when appropriate to reduce radiation dose to as low as reasonably achievable. Dictated by Lucien Bear MD @ 12/30/2024 10:35:14 AM <David House DO - Last Filed: 12/30/24 11:38> ECG Data Attestation: I personally reviewed and interpreted this ECG as follows: <David House DO - Last Filed: 12/30/24 11:38> Prior ECG tracings: available for review <David House DO - Last Filed: 12/30/24 11:38> Interpretation: Initial EKG you when arrived shows wide QRS tachycardia with a rate of 174 beats per minute, right bundle branch block, normal axis, cannot see VT intervals no clear ST or T-wave abnormalities. Previous EKG shows a normal sinus rhythm Repeat EKG after cardioversion shows normal sinus rhythm rate 96 beats per minute, normal intervals, normal axis, no ST or T-wave abnormalities. Appears more consistent with previous EKGs on file. <David House DO - Last Filed: 12/30/24 11:38> Discharge Plan Discharge Clinical Impression: Atrial flutter Qualifiers: Atrial flutter type: unspecified Qualified Code(s): I48.92 - Unspecified atrial flutter Closed head injury Qualifiers: Encounter type: initial encounter Qualified Code(s): S09.90XA - Unspecified injury of head, initial encounter <David House DO - Last Filed: 12/30/24 11:38> Patient Disposition: Home, Self-Care <David House DO - Last Filed: 12/30/24 11:38> Condition: Improved <David House DO - Last Filed: 12/30/24 11:38> Instructions: Atrial Flutter (DC) <David House DO - Last Filed: 12/30/24 11:38> Additional Instructions: Take Tylenol for your headache. Make sure to have close outpatient follow-up with her primary care provider and Cardiology. You can contact the [facility] [place] altered reach branch at [phone]. Otherwise call the [phone] <David House DO - Last Filed: 12/30/24 11:38> Prescriptions: No Action lamotrigine 250 mg tablet extended release 24hr 250 mg PO HS Rx Instructions: total of 450mg at HS lamotrigine 200 mg tablet extended release 24hr 200 mg PO HS duloxetine 20 mg capsule,delayed release(DR/EC) 40 mg PO DAILY meclizine 12.5 mg tablet 12.5 mg PO TID PRN doxycycline hyclate 100 mg tablet 100 mg PO BID (DME) Omnipod 5 G6-G7 Pods (Gen 5) Cartridge See Rx Instructions subcut .MEDSUPPLY Qty: 5 Rx Instructions: As directed furosemide 20 mg tablet 40 mg PO QAM Multiple vitamin with iron 1 tab PO DAILY Calcium 500 mg PO BID Gvoke PFS 1-Pack Syringe 1 mg/0.2 mL syringe 1 mg subcut DAILY PRN ropinirole 0.5 mg tablet 1 mg PO HS atorvastatin 10 mg tablet 10 mg PO QPM ascorbic acid (vitamin C) 500 mg tablet 500 mg PO DAILY albuterol sulfate 2.5 mg /3 mL (0.083 %) solution for nebulization 2.5 mg inhalation Q4H PRN amlodipine 5 mg tablet 5 mg PO DAILY ferrous sulfate [Feosol] 325 mg (65 mg iron) tablet 325 mg PO DAILY cholecalciferol (vitamin D3) 25 mcg (1,000 unit) tablet 50 mcg PO DAILY insulin lispro [Admelog U-100 Insulin lispro] 100 unit/mL solution 50 - 60 unit subcut DAILY Rx Instructions: SUBQ PUMP celecoxib 100 mg capsule 100 mg PO BID Qty: 60 0RF zolpidem 5 mg Tablet 5 mg PO HS PRN30 Days Qty: 30 1RF lacosamide 100 mg tablet 100 mg PO BID Qty: 60 0RF melatonin 5 mg capsule 5 mg PO HS aspirin 81 mg tablet,delayed release (DR/EC) 81 mg PO DAILY albuterol sulfate 90 mcg/actuation HFA aerosol inhaler 2 inh inhalation Q4H PRN lisinopril 10 mg tablet 10 mg PO DAILY omeprazole 20 mg capsule,delayed release(DR/EC) 20 mg PO DAILY ondansetron 4 mg tablet,disintegrating 4 mg PO Q8H PRN pregabalin 150 mg capsule 150 mg PO BID prochlorperazine maleate [Compazine] 10 mg tablet 10 mg PO Q8H PRNQty: 15 0RF <David House DO - Last Filed: 12/30/24 11:38> Follow Up/Referrals: David Parisi MD [Primary Care Provider] - <David House DO - Last Filed: 12/30/24 11:38> Stand Alone Forms: Health system Info Instructions <David Hosue DO - Last Filed: 12/30/24 11:38> Procedures Additional Procedures Procedure name: Cardioversion <David House DO - Last Filed: 12/30/24 11:38> Pre procedure diagnosis: A flutter <David House DO - Last Filed: 12/30/24 11:38> Post procedure diagnosis: Normal sinus rhythm <David House DO - Last Filed: 12/30/24 11:38> Written consent by: patient <David House DO - Last Filed: 12/30/24 11:38> Verification/time out: correct patient, correct procedure and time out performed <David House DO - Last Filed: 12/30/24 11:38> Conclusion: patient tolerated procedure <DO Leonardo Brown Last Filed: 12/30/24 11:38>
--- OUTSIDE RECORDS SUMMARY | 2024-12-30 11:02 | XMS_ITS | Encounter Summary ---
Author Organization [facility] [place] Address [address] [place] [address] Care Team Providers Care Orchestra Conductor Name Role Phone David Parisi MD Primary Care Provider Uriel Mercedes MD Unavailable Brandon Parikh MD Unavailable Reason for Visit * Reason Onset Date Comments Appointment 09/18/2024 Encounter Details Date Type Department Care Team (Late st Contact Info) Description 09/18/2024 Telephone [facility] [place] [address] [facility] [address] 4th [place] [address] Uriel Mercedes MD [address] [place], [place] [address] Appointment Social History Tobacco Use Types Packs/Day [...] on file Legal Sex Female 5:08 AM APPEALS REPRESENTATIVE Gender Identity Not on file Sexual Orientation [...] we send this information to you in [facility] or would you prefer to receive a phone call?: Patient would prefer a phone call Okay to leave a detailed message?: Yes at Cell number on file: Telephone Information: ALS REPRESENTATIVE documented in this encounter Plan of Treatment Upcoming Encounters Date Type Department Care Team (Late st Contact Info) Description 05/29/2025 9:40 AM CDT Ancillary Procedure [facility] Imaging Center CT Clinic [address] 1st [place] [phone] Uriel Mercedes MD [address] [place] [address] [id number] 05/29/2025 10:40 AM CDT Office Visit [facility] [address] 4th [place] [phone] Uriel Mercedes MD [address] [place] [address] documented as of this encounter Visit Diagnoses Not on filedocumented in this encounter Care Teams Orchestra Conductor Relationship Specialty Start Date End Date David Parisi MD [address] [place] [address] PCP - General 03/16/23 Uriel Mercedes MD [address] [place] [address] Assigned Musculoskeletal Provider 03/25/23 Brandon Parikh MD [address] [place], [place] [id number] Assigned Neuroscience Provider 04/29/23 11/23/24 documented as of this encounter
--- OUTSIDE RECORDS SUMMARY | 2024-12-30 11:02 | XMS_ITS | Encounter Summary ---
Author Organization [facility] Address [address] [place] [address] Care Team Providers Care Technology Administrator Name Role Phone David Parisi MD Primary Care Provider Uriel Mercedes MD Unavailable Reason for Visit * Reason Comments RECHECK DOS 03-20-24 Fusion L umbar Encounter Details Date Type Department Care Team (Late st Contact Info) Description 12/05/2024 8:40 AM PIPEFITTER Office Visit [facility] [place] [id number] [facility] [address] 4th [place] [address] Uriel Mercedes MD [address] [place], [place] [phone] S/P lumbar spinal fusion (Primary Dx) Social [...] on file Legal Sex Female 5:08 AM PIPEFITTER Gender Identity Not on file Sexual Orientation [...] backout of loosening of L5 screws. [Implants: Palisades Marilee 3 screw system, UNILIF PEEK cage]. 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 [Implants: Evoinfinitytronic Solera and Ballast screw system, 5.5 mm CoCr rods x4, including 1 UNID cristian; Capstone Control PTC cages; SI-Bone Brule screws x2]. 03/20/2024 - Revision PISF J52-menrmv (proximal extension of previously placed L2 screws up to T12 with new screws bilateral T12 and L1 and connecting new rods to old ones), TLIF-SPO L1-2, use of infuse BMP, local autograft and crushed cancellous allograft (Sembrano) for large central suprajacent lateral central disc herniation with compression of the cauda equina at L1-2. [Implants: Evoinfinitytronic Solera screw system, 5.5 mm CoCr rods [...] did undergo left TKA in August at [facility] which subsequently got infected and required 2 [...] 8mo 32% 9mo 51.11% S/p Rev PISF B48-rtizes; TLIF-SPO L1-2 (03/20/24): CHELA preop 51.11% 6wk [...] present. Stable appearance of posterior fusion hardware C58-xuexku without evidence of hardware failure or fracture. Mild increase in T11-12 disc degenerative changes compared to previous images. A> 54/F 1. 9 months s/p Revision PISF S11-hlveid for large central suprajacent lateral central disc herniation with compression of the cauda equina at L1-2; progressing as expected 2. S/p multiple lumbar spine surgeries ([id number], all by Dr. Mata, [facility]), culminating in L2-L5 TLIF-PISF. 3. [...] with patient and family. Uriel Mercedes MD Finding Fastener Orthopaedic Spine Surgery Dept Orthopaedic Surgery, [facility] [phone] office, pager [email or web address] documented in this encounter Plan of Treatment Upcoming Encounters Date Type Department Care Team (Late st Contact Info) Description 05/29/2025 9:40 AM CDT Ancillary Procedure [facility] Imaging Center CT Clinic [address] 1st [place] [address] Uriel Mercedes MD [address] [place] [address] [phone] 05/29/2025 10:40 AM CDT Office Visit [facility] Orthopedic Clinic [address] 4th [place] [phone] Uriel Mercedes MD [address] [place] [address] documented as of this encounter Visit Diagnoses Diagnosis S/P lumbar spinal fusion- Primary Arthrodesis status documented in this encounter Care Teams Technology Administrator Relationship Specialty Start Date End Date David Parisi MD [address] [place] [address] PCP - General 03/16/23 Uriel Mercedes MD [address] [place] [address] Assigned Musculoskeletal Provider 03/25/23 documented as of this encounter
--- OUTSIDE RECORDS SUMMARY | 2024-12-30 11:02 | XMS_ITS | Encounter Summary ---
Author Organization [facility] Address [address] [place] [address] Care Team Providers Care Inspector Bicycle Name Role Phone David Parisi MD Primary Care Provider [phone] Uriel Mercedes MD Unavailable [phone] Reason for Visit * Diagnostic Imaging XR (Routine) - Pending Review Specialty Diagnoses / Procedures Referred By Contac t Referred To Contact Radiology. Diagnoses S/P spinal fusion Herniated lumbar intervertebral disc History of fusion of cervical spine Status post lumbar spinal fusion Procedures XR EOS Total Body Uriel Mercedes MD [address] [place] [address] Phone: tel: fax: Referral ID Status Reason Start Date Expiration Date V isits Requested Visits Authorized [id number] Pending Review 11/13/2024 11/13/2025 1 1 Encounter Details Date Type Department Care Team (Latest Contact Info) Description 12/05/2024 8:20 AM CABINET ABRASIVE SANDBLASTER Ancillary Procedure [facility] Imaging Center [place] [address] [facility] [address] 1st [place] [phone] Uriel Mercedes MD [address] [place] [address] [phone] S/P spinal fusion; Herniated lumbar intervertebral disc; [...] on file Legal Sex Female 5:08 AM CABINET ABRASIVE SANDBLASTER Gender Identity Not on file Sexual Orientation Not on file documented as of this encounter Plan of Treatment Upcoming Encounters Date Type Department Care Team (Late st Contact Info) Description 05/29/2025 9:40 AM CDT Ancillary Procedure [facility] Imaging Center CT Clinic [address] 1st [place] [phone] Uriel Mercedes MD [address] [place] [address] 05/29/2025 10:40 AM CDT Office Visit [facility] Orthopedic Clinic [address] 4th [place] [phone] Uriel Mercedes MD [address] [place] [address] 276254 documented as of this encounter Procedures Procedure Name Priority Date/Time Associated Diagnosis Comments XR EOS TOTAL BODY Routine 12/05/2024 9:1 8 AM CABINET ABRASIVE SANDBLASTER S/P spinal fusion Herniated lumbar intervertebral disc History of fusion of cervical spine Status post lumbar spinal fusion documented in this encounter Results * XR EOS Total Body (12/05/2024 9:18 AM CABINET ABRASIVE SANDBLASTER) Anatomical Region Laterality Modality Spine, Lower Extremity Computed Radiography Impressions 12/05/2024 1:22 PM CABINET ABRASIVE SANDBLASTER Impression: 1. Stable ACDF and posterior fusion at C5-C7 and posterior T12 the pelvis instrument fusion without evidence of hardware complication. Slightly increased opposing endplate degenerative changes at T11-T12. 2. No global sagittal or coronal imbalance. 3. Weight bearing axis as detailed above. EBONY WRIGHT MD Narrative 12/05/2024 1:22 PM CABINET ABRASIVE SANDBLASTER Exam: Full body radiographs using EOS History: [...] No substantial global coronal imbalance. Sagittal Vertical [place] (A vertical line drawn from the center [...] No acute osseous abnormality. Procedure Note Ebony Wrigth MD - 12/05/2024 Exam: Full body radiographs [...] No substantial global coronal imbalance. Sagittal Vertical [place] (A vertical line drawn from the center [...] status documented in this encounter Care Teams Inspector Bicycle Relationship Specialty Start Date End Date David Parisi MD [address] [place] [address] PCP - General 03/16/23 Uriel Mercedes MD [address] [place] [address] Assigned Musculoskeletal Provider 03/25/23 documented as of this encounter
--- OUTSIDE RECORDS SUMMARY | 2024-12-30 11:03 | XMS_ITS | Encounter Summary ---
Author Organization [facility] Address [address] [place] [address] Care Team Providers Care Instructional Specialist Name Role Phone David Parisi MD Primary Care Provider [phone] Uriel Mercedes MD Unavailable [phone] Reason for Referral * Diagnostic Imaging CT Scan (Routine) - Authorized Specialty Diagnoses / Procedures Referred By Contac t Referred To Contact Radiology. Diagnoses S/P lumbar spinal fusion Herniated lumbar intervertebral disc Status post lumbar spinal fusion Procedures CT Lumbar Spine w/o Contrast Uriel Mercedes MD [address] [place] [address] Phone: tel: fax: Referral ID Status Reason Start Date Expiration Date V isits Requested Visits Authorized [id number] Authorized 12/05/2024 12/05/2025 1 1 RMATION SERVICES VICE PRESIDENT Encounter Details Date Type Department Care Team (Late st Contact Info) Description 12/05/2024 Orders Only [facility] Orthopedic Clinic [place] [address] [facility] [address] 4th [place] [address] Uriel Mercedes MD [address] [place], [place] [phone] [place], [place] [address] S/P lumbar spinal fusion (Primary Dx); Herniated [...] file Legal Sex Female 5:08 AM INFORMATION SERVICES VICE PRESIDENT Gender Identity Not on file Sexual Orientation Not on file documented as of this encounter Plan of Treatment Upcoming Encounters Date Type Department Care Team (Late st Contact Info) Description 05/29/2025 9:40 AM CDT Ancillary Procedure [facility] Imaging Center CT Clinic [address] 1st [place] [phone] Uriel Mercedes MD [address] [place] [address] 05/29/2025 10:40 AM CDT Office Visit [facility] Orthopedic Clinic [address] 4th [place] [phone] Uriel Mercedes MD [address] [place] [address] Scheduled Orders Name Type Priority Associated Diagnoses [...] status documented in this encounter Care Teams Instructional Specialist Relationship Specialty Start Date End Date David Parisi MD [address] [place] [address] PCP - General 03/16/23 Uriel Mercedes MD [address] [facility] [address] [place] [address] Assigned Musculoskeletal Provider 03/25/23 documented as of this encounter
--- OUTSIDE RECORDS SUMMARY | 2024-12-30 11:03 | XMS_ITS | Encounter Summary ---
Author Organization [facility] Address [address] [place] [address] Care Team Providers Care Media Librarian Name Role Phone David Parisi MD Primary Care Provider Uriel Mercedes MD Unavailable Brandon Parikh MD Unavailable Encounter Details Date Type Department Care Team (Late st Contact Info) Description 01/29/2024 Telephone [facility] Orthopedic Clinic [place] [address] 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 Gender Identity Not on file Sexual Orientation [...] has her mri scheduled on 02/11/24 at [facility].She would like to talk to Johanna Could we send this information to you [facility] or would you prefer to receive a phone call?: Patient would prefer a phone call Okay to leave a detailed message?: Yes at Home number on file [phone] (home) documented in this encounter Plan of Treatment Upcoming Encounters Date Type Department Care Team (Late st Contact Info) Description 05/29/2025 9:40 AM CDT Ancillary Procedure [facility] Imaging Center CT Clinic [address] 1st [place] [phone] Uriel Mercedes MD [address] [place] [address]854 05/29/2025 10:40 AM CDT Office Visit [facility] Orthopedic Clinic [address] 4th [place] [phone] Uriel Mercedes MD [address] [place] [address] documented as of this encounter Visit Diagnoses Not on filedocumented in this encounter Care Teams Media Librarian Relationship Specialty Start Date End Date David Parisi MD [address] [place] [address] PCP - General 03/16/23 Uriel Mercedes MD [address] [place] [address] Assigned Musculoskeletal Provider 03/25/23 Brandon Parikh MD [address] [place] [address] Assigned Neuroscience Provider 04/29/23 11/23/24 documented as of this encounter
--- OUTSIDE RECORDS SUMMARY | 2024-12-30 11:03 | XMS_ITS | Encounter Summary ---
Author Organization [facility] Address [facility] [place] [address] Care Team Providers Care Motorcycle Mechanic Name Role Phone David Parisi MD Primary Care Provider Uriel Mercedes MD Unavailable Brandon Parikh MD Unavailable Reason for Visit * Reason Onset Date Comments Prior Auth - Medication 04/27/2023 LamoTRIg ine (LAMICTAL) 200 MG ER tablet - APPROVED Encounter Details Date Type Department Care Team (Late st Contact Info) Description 04/27/[address] [facility] Neurology Clinic [address] [address] [place] [address] [place] [address] Prior Auth - Medication (LamoTRIgine (LAMICTAL) [...] on file Legal Sex Female 5:08 AM ORTHOTIC AIDE Gender Identity Not on file Sexual Orientation [...] Dose/Quantity: 30 FOR 30 DAYS Insurance Company: [employer] Part D - Which Pharmacy is filling the prescription: [facility] [place], [place] - [facility] [address] Pharmacy Notified: YES Patient [...] ER 200 MG PO TB24 Insurance Company: [employer] Part D - Pharmacy Filling the Rx: [facility] CT [facility] [place] [address] [facility] [address] 1st [place] [phone] Uriel Mercedes MD [address] [address] 05/29/2025 10:40 AM CDT Office Visit [facility] Orthopedic Clinic [place] [address] [facility] [address] 4th [place] [phone] Uriel Mercedes MD [address] [place] [address] documented as of this encounter Visit Diagnoses Not on filedocumented in this encounter Care Teams Motorcycle Mechanic Relationship Specialty Start Date End Date David Parisi MD [address] [place] [address] PCP - General 03/16/23 Uriel Mercedes MD [address] [place] [address] Assigned Musculoskeletal Provider 03/25/23 Brandon Parikh MD [address] [place] [address] Assigned Neuroscience Provider 04/29/23 11/23/24 documented as of this encounter
--- OUTSIDE RECORDS SUMMARY | 2024-12-30 11:03 | XMS_ITS | Encounter Summary ---
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 Gender Identity Not on file Sexual Orientation Not on file documented as of this encounter Plan of Treatment Upcoming Encounters Date Type Department Care Team (Late st Contact Info) Description 05/29/2025 9:40 AM CDT Ancillary Procedure [facility] Imaging Center CT Clinic [address] 1st [place] [address] Uriel Mercedes MD [address] [facility] [address] [place], [place] [address] 05/29/2025 10:40 AM CDT Office Visit [facility] Orthopedic Clinic [address] 4th [place] [address] Uriel Mercedes MD [address] [facility] [address] [place] [address] documented as of this encounter Visit Diagnoses Not on filedocumented in this encounter Care Teams Financial Writer Relationship Specialty Start Date End Date David Parisi MD [address] [place] [address] PCP - General 03/16/23 Uriel Mercedes MD [address] [facility] [place] [address] Assigned Musculoskeletal Provider 03/25/23 documented as of this encounter
--- OUTSIDE RECORDS SUMMARY | 2024-12-30 11:03 | XMS_ITS | Encounter Summary ---
Author Organization [place] Address [facility] [place] [address] Care Team Providers Care Electronic Musical Instrument Repairer Name Role Phone David Parisi MD Primary Care Provider Uriel Mercedes MD Unavailable Brandon Parikh MD Unavailable Reason for Visit * Reason Onset Date Comments Prior Auth - Medication 04/27/2023 LamoTRIg ine (LAMICTAL) 250 MG TB24 - APPROVAL Encounter Details Date Type Department Care Team (Late st Contact Info) Description 04/27/2023 Telephone [facility] Neurology Clinic [address] [address] [place] [address] [place] [address] Prior Auth - Medication (LamoTRIgine (LAMICTAL) [...] on file Legal Sex Female 5:08 AM PROFESSOR COMPUTER SCIENCE Gender Identity Not on file Sexual Orientation [...] Dose/Quantity: 30 FOR 30 DAYS Insurance Company: [employer] Part [facility] - [facility] [...] ER 250 MG PO TB24 Insurance Company: [employer] Part D - Pharmacy Filling the Rx: [...] Description 05/29/2025 9:40 AM CDT Ancillary Procedure [facility] Imaging Center CT Clinic [address] 1st [place] [phone] Uriel Mercedes MD [address] [place], [place] [address] 05/29/2025 10:40 AM CDT Office Visit [facility] Orthopedic Clinic [address] 4th [place] [phone] Uriel Mercedes MD [address] [place] [address] documented as of this encounter Visit Diagnoses Not on filedocumented in this encounter Care Teams Electronic Musical Instrument Repairer Relationship Specialty Start Date End Date David Parisi MD [address] [place] [address] PCP - General 03/16/23 Uriel Mercedes MD [address] [place] [address] Assigned Musculoskeletal Provider 03/25/23 Brandon Parikh MD [address] [place] [address] Assigned Neuroscience Provider 04/29/23 11/23/24 documented as of this encounter
--- OUTSIDE RECORDS SUMMARY | 2024-12-30 11:03 | XMS_ITS | Clinical Summary ---
Author Organization [facility] Address [address] [place] [address] Care Team Providers Care Guideman Name Role Phone Unavailable Primary Care Provider [...] for each transition of care or referral. [facility] Allergies Active Allergy Reactions Criticality Noted Date [...] Recently Relevant to Health Maintenance Insurance MEDICARE [facility]
--- OUTSIDE RECORDS SUMMARY | 2024-12-30 11:03 | XMS_ITS | Clinical Summary ---
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, [...] (OMNIPOD 5 G6 PODS, GEN 5,) [facility] [place] Basal rate #1 (3047-3176): 0.8 units/hr Basal rate #2 (8843-3535): 0.85 units/hr 4 Active polyethylene glycol (MIRALAX) [...] Department Care Team Description 12/05/2024 8:40 AM AUDIO VISUAL ENGINEER Office Visit [facility] [address] [place] [phone] Uriel Mercedes MD S/P lumbar spinal fusion (Primary Dx) 12/05/2024 8:20 AM AUDIO VISUAL ENGINEER Ancillary Procedure [facility] X[facility] [address] [place] [phone] Uriel Mercedes MD S/P spinal fusion; Herniated lumbar intervertebral disc; History of fusion of cervical spine; Status post lumbar spinal fusion 12/05/2024 Orders Only [facility] [address] [phone] Uriel Mercedes MD S/P lumbar spinal fusion (Primary Dx); Herniated lumbar intervertebral disc; Status post lumbar spinal fusion 12/05/2024 Travel 11/13/2024 Orders Only [facility] [address] [phone] Uriel Mercedes MD S/P spinal fusion (Primary [...] on file Legal Sex Female 5:08 AM AUDIO VISUAL ENGINEER Gender Identity Not on file Sexual [...] Description 05/29/2025 9:40 AM CDT Ancillary Procedure [facility] [address] [place] [phone] Uriel Mercedes MD [address] [place] [address] 05/29/2025 10:40 AM CDT Office Visit [facility] [address] [place] [phone] Uriel Mercedes MD [address] [place] [id number] Health Maintenance Due Date Last Done Comments [...] this topic Medical Devices Implanted Type Area Senior Radiation Protection Technician Device Identifier Shelf Expiration Date Model / Serial / Lot Graft Bn Canc 30cc Crs 1-10mm [id number] - [id number] Implanted:Qty : 1 on 06/02/2023 by Uriel Mercedes MD at [facility] Bone/Tissu e/Biologic N/A: Spine Lumbar [employer] 05/18/2026 [id number] / [id number] / [id number] Graft Bn Can 30cc Crs 1-10mm [id number] - [id number] Implanted:Qty : 1 on 06/02/2023 by Uriel Mercedes MD at [facility] Bone/Tissu e/Biologic N/A: Spine Lumbar [employer] 05/14/2026 [id number] / [id number] / [id number] Graft Bn Can 30cc Crs 1-10mm [id number] - [id number] Implanted:Qty : 1 on 03/20/2024 by Uriel Mercedes MD at [facility] Bone/Tissu e/Biologic N/A: Spine Lumbar [employer] 09/06/2026 [id number] / [id number] / [id number] Imp Scr Medt 5.5/6.0mm Solera 7.5x55mm Ma [id number] - [id number] Implanted:Qty : 1 on 06/02/2023 by Uriel Mercedes MD at [facility] Metallic Hardware/A nchor N/A: Spine Lumbar [employer] [id number] 12/16/2030 [id number] / / [id number] Imp Scr Medt 5.5/6.0mm Solera 7.5x40mm Ma [id number] - [id number] Implanted:Qty : 1 on 06/02/2023 by Uriel Mercedes MD at [facility] Metallic Hardware/A nchor N/A: Spine Lumbar [employer] [id number] / / Screw Bn 90mm 9.5mm Ma Cnn Ns Cd Hzn Spne Lf Bs Cnmas Tc - [id number] Implanted:Qty : 2 on 06/02/2023 by Uriel Mercedes MD at [facility] Metallic Hardware/A nchor N/A: Spine Lumbar [employer] [id number] / / Imp Rupert Medt Solera Lined 5.9z207ze Chr [id number] - [id number] Implanted:Qty : 1 on 06/02/2023 by Uriel Mercedes MD at [facility] Metallic Hardware/A nchor N/A: Spine Lumbar [employer] [id number] / / Imp Scr Medt 5.5/6.0mm Solera 7.5x50mm Ma [id number] - [id number] Implanted:Qty : 1 on 06/02/2023 by Uriel Mercedes MD at [facility] Metallic Hardware/A nchor N/A: Spine Lumbar [employer] [id number] 05/09/2031 [id number] / / [id number] Imp Spnl Ifuse Bedrock [place] 10.5 Mm X 90 Mm [id number] - [id number] Implanted:Qty : 1 on 06/02/2023 by Uriel Mercedes MD at [facility] Metallic Hardware/A nchor N/A: Spine Lumbar [employer] [id number] 03/22/2028 [id number] / [id number] / Imp Spnl Ifuse Bedrock [place] 10.5 Mm X 90 Mm [id number] - [id number] Implanted:Qty : 1 on 06/02/2023 by Uriel Mercedes MD at [facility] Metallic Hardware/A nchor N/A: Spine Lumbar [employer] [id number] 03/22/2028 [id number] / [id number] / Imp Scr Set Medt Solera Break Off 5.5mm Ti [id number] - [id number] Implanted:Qty : 12 on 06/02/2023 by Uriel Mercedes MD at [facility] Metallic Hardware/A nchor N/A: Spine Lumbar [employer] [id number] / / Imp Scr Medt 5.5/6.0mm Solera 6.5x50mm Ma [id number] - [id number] Implanted:Qty : 2 on 06/02/2023 by Uriel Mercedes MD at [facility] Metallic Hardware/A nchor N/A: Spine Lumbar [employer] [id number] / / Imp Scr Medt 5.5/6.0mm Solera 9.5x50mm Ma [id number] - [id number] Implanted:Qty : 1 on 06/02/2023 by Uriel Mercedes MD at [facility] Metallic Hardware/A nchor N/A: Spine Lumbar [employer] [id number] / / Imp Scr Medt 5.5/6.0mm Solera 7.5x45mm Ma [id number] - [id number] Implanted:Qty : 1 on 06/02/2023 by Uriel Mercedes MD at [facility] Metallic Hardware/A nchor N/A: Spine Lumbar [employer] [id number] / / Imp Scr Medt 5.5/6.0mm Solera 8.5x50mm Ma [id number] - [id number] Implanted:Qty : 1 on 06/02/2023 by Uriel Mercedes MD at [facility] Metallic Hardware/A nchor N/A: Spine Lumbar [employer] [id number] / / Imp Scr Medt 5.5/6.0mm Solera 6.5x45mm Ma [id number] - [id number] Implanted:Qty : 2 on 03/20/2024 by Uriel Mercedes MD at [facility] Metallic Hardware/A nchor N/A: Spine Lumbar [employer] 03/20/2024 [id number] / / Imp Scr Medt 5.5/6.0mm Solera 6.5x50mm Ma [id number] - [id number] Implanted:Qty : 2 on 03/20/2024 by Uriel Mercedes MD at [facility] Metallic Hardware/A nchor N/A: Spine Lumbar [employer] 03/20/2024 [id number] / / Imp Spacer Medt Capstone 8x22mm 0deg Ir [id number] - [id number] Implanted:Qty : 1 on 03/20/2024 by Uriel Mercedes MD at [facility] Metallic Hardware/A nchor N/A: Spine Lumbar [employer] [id number] 12/16/2029 [id number] / / [id number] Imp Scr Set Medt Solera Break Off 5.5mm Ti [id number] - [id number] Implanted:Qty : 8 on 03/20/2024 by Uriel Mercedes MD at [facility] Metallic Hardware/A nchor N/A: Spine Lumbar [employer] [id number] / / N/A Imp Rupert Medt Solera Lined 5.8d045xl Chr [id number] - [id number] Implanted:Qty : 1 on 03/20/2024 by Uriel Mercedes MD at [facility] Metallic Hardware/A nchor N/A: Spine Lumbar [employer] [id number] / / N/A Imp Connector Medt Horizon Closed 5.5mm [id number] - [id number] Implanted:Qty : 2 on 03/20/2024 by Uriel Mercedes MD at [facility] Metallic Hardware/A nchor N/A: Spine Lumbar [employer]-DANEK [id number] / / N/A Imp Scr Set [place]um[place] Medt 5.5 To 5.5mm [id number] - [id number] Implanted:Qty : 2 on 03/20/2024 by Uriel Mercedes MD at [facility] Metallic Hardware/A nchor N/A: Spine Lumbar [employer] [id number] / / Imp Scr Danek Legacy Breakoff Set 5.5mm Ti [id number] - [id number] Implanted:Qty : 2 on 03/20/2024 by Uriel Mercedes MD at [facility] Metallic Hardware/A nchor N/A: Spine Lumbar [employer]-DANEK [id number] / / N/A Graft Bone Infuse Bmp Lg [id number] - [id number] Implanted:Qty : 1 on 06/02/2023 by Uriel Mercedes MD at [facility] N/A: Spine Lumbar [employer] 11/30/2024 [id number] / / [id number] Capstone Control Ptc Spinal System Spacer 49wwf62hr, 18 Deg, Peek/Ti/Ta Implanted:Qty : 4 on 06/02/2023 by Uriel Mercedes MD at [facility] N/A: Spine Lumbar [employer] 06/10/2030 [id number] / / [id number] Unid Exp Cocr Rupert 5.5mm 4+ Lv Implanted:Qty : 2 on 06/02/2023 by Uriel Mercedes MD at [facility] N/A: Spine Lumbar [employer] 07/31/2023 [id number] / / [id number] Graft Bone Infuse Bmp Sm 2463400 - [id number] Implanted:Qty : 1 on 03/20/2024 by Uriel Mercedes MD at [facility] N/A: Spine Lumbar [employer] 04/01/2025 [id number] / / [id number] Explanted Type Area Senior Radiation Protection Technician Device Identifier Shelf Expiration Date Model / Serial / Lot All Spinal Fusion Hardware Removed And Discarded As Indicated By Dr. Mercedes Consistent With The Revision Surgical Procedure Criteria Explanted:Qty: 1 on 06/02/2023 by Uriel Mecredes MD at [facility] N/A: Spine Lumbar Procedures Procedure Name Priority Date/Time Associated Diagnosis Comments XR EOS TOTAL BODY Routine 12/05/2024 9:1 8 AM AUDIO VISUAL ENGINEER S/P spinal fusion Herniated lumbar intervertebral disc [...] XR EOS Total Body (12/05/2024 9:18 AM AUDIO VISUAL ENGINEER) Anatomical Region Laterality Modality Spine, Lower Extremity Computed Radiography Impressions 12/05/2024 1:22 PM AUDIO VISUAL ENGINEER Impression: 1. Stable ACDF and posterior fusion at C5-C7 and posterior T12 the pelvis instrument fusion without evidence of hardware complication. Slightly increased opposing endplate degenerative changes at T11-T12. 2. No global sagittal or coronal imbalance. 3. Weight bearing axis as detailed above. EBONY WRIGHT MD Narrative 12/05/2024 1:22 PM AUDIO VISUAL ENGINEER Exam: Full body radiographs using EOS History: [...] No substantial global coronal imbalance. Sagittal Vertical Vassar (A vertical line drawn from the center [...] No substantial global coronal imbalance. Sagittal Vertical Vassar (A vertical line drawn from the center [...] ult [facility] Lab [address] [facility], [address] [place] [address], [facility] * (ABNORMAL) Hemoglobin A1c (04/11/2023 12:57 [...] - BLOOD ORDERABLES Final Result [facility] Core Lab [address] [facility], [address] [place] [address], [facility] [phone] from Last 3 Months or Most Recently Relevant to Health [place] [id number] [place] Advance Directives For more information, please contact: [phone] * Full Code (Latest Code Status on [...] continue PREVIOUSLY ORDERED code status Care Teams Mass Communications Instructor Relationship Specialty Start Date End Date David Parisi MD [address] [place] [address] PCP - General 03/16/23 Uriel Mercedes MD [address] [place] [address] Assigned Musculoskeletal Provider 03/25/23
--- OUTSIDE RECORDS SUMMARY | 2024-12-30 11:03 | XMS_ITS | Encounter Summary ---
Author Organization [facility] Address [address] [place] [address] Care Team Providers Care Building Construction Foreman Name Role Phone None Reported, Pcp Primary Care Provider Unavail able Reason for Visit * Reason Comments Med Refill Encounter Details Date Type Department Care Team (Late st Contact Info) Description 11/02/2024 Refill [facility] in [place] [address] [place] [phone] Joann Gaffney, TYRESE, C.N.P. [address] [place] [address] Med Refill Social History Tobacco Use Types [...] on file Legal Sex Female 4:47 PM ENAMEL CRACKER Gender Identity Not on file Sexual Orientation Not on file documented as of this encounter Miscellaneous Notes * Telephone Encounter - Luisa Charles REmmanuelN. - 11/04/2024 7:46 AM ENAMEL CRACKER Pt not under Erica Gaffney's Care EL CRACKER documented in this encounter Plan of Treatment Upcoming Encounters Date Type Department Care Team (Late st Contact Info) Description 02/19/2025 10:15 AM CDT Office Visit Department of Neurology in [place], [place] [address] [phone] Casa Larose M.D. [address] [place] [address] documented as of this encounter Visit Diagnoses Not on filedocumented in this encounter Care Teams Building Construction Foreman Relationship Specialty Start Date End Date None Reported, Pcp PCP - General Family Medicine 10/04/24 documented as of this encounter
--- OUTSIDE RECORDS SUMMARY | 2024-12-30 11:03 | XMS_ITS | Encounter Summary ---
Author Organization [facility] Address [address] [place] [address] Care Team Providers Care Skoog Patching Machine Operator Name Role Phone None Reported, Pcp Primary Care Provider Unavail able Reason for Visit * Reason Comments Med Refill Encounter Details Date Type Department Care Team (Late st Contact Info) Description 12/24/2024 Refill [facility] in [place] [address] [place] [phone] Joann Gaffney, TYRESE, C.N.P. [address] [place] [address] Med Refill Social History Tobacco Use Types [...] on file Legal Sex Female 4:47 PM TEST PREPARER Gender Identity Not on file Sexual Orientation [...] CDT Office Visit Department of Neurology in [place], [place] [address] [place] [address] Casa Larose M.D. [address] [place] [address] documented as of this encounter Visit Diagnoses Not on filedocumented in this encounter Care Teams Skoog Patching Machine Operator Relationship Specialty Start Date End Date None Reported, Pcp PCP - General Family Medicine 10/04/24 documented as of this encounter
--- OUTSIDE RECORDS SUMMARY | 2024-12-30 11:03 | XMS_ITS | Clinical Summary ---
Author Organization [facility] Address [address] [place] [address] Care Team Providers Care Psychological Aide Name Role Phone Bernadette Cabrera MD Primary Care Provider [phone] [facility] Care, [place] Unavailable Allergies Active Allergy Reactions Criticality Noted [...] meal. Active lamoTRIgine (LAMICTAL XR) 250 mg [id number] eizure disorder (HC) Take 1 tablet by [...] Description 12/30/2024 7:20 AM CDT Office Visit [facility] [address] [place] [address] Jacinta Coley PA Fall 12/30/2024 Travel 12/19/2024 Orders Only [facility] Scanner 1 scan: (1-Ord) [place], ADDENDUM, XR KNEE LT 3V, 12/19/2024 12/19/2024 Orders Only [facility] Scanner 1 scan: (1-Ord) [place], CT ANGIO CHEST PE PROTOCOL, 12/19/2024 12/19/2024 Orders Only [facility] Scanner 1 scan: (1-Ord) [place], XR KNEE LT 3V, 12/19/2024 12/19/2024 Orders Only [facility] Scanner 1 scan: (1-Ord) [facility], HEAD,BRAIN W/O CONTRAST, 12/19/2024 12/18/2024 Telephone [facility] [address] [place] [address] Bernadette Cabrera MD Form 12/16/2024 9:42 AM CDT - 12/16/2024 11:59 PM CDT Hospital Encounter [facility] [address] [facility] [place] [address] Bernadette Cabrera MD Gastroenteritis; Nausea; 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 No fever hasn't been able to eat much trying to drink lots of fluid ) 12/13/2024 Telephone [facility] [address] [place] [address] Bernadette Cabrera MD Results; Follow Up 12/13/2024 Travel 12/12/2024 Nurse Triage [facility] [address] [place] [address] Bernadette Cabrera MD Questions (question ) 12/03/[address] [address] Padmini Sena MD Lab 12/02/2024 Telephone [facility] [address] [place] [address] Bernadette Cabrera MD Follow Up (Fax) 12/02/2024 Telephone [facility] [address] [place] [address] Bernadette Cabrera MD Results 11/28/2024 9:50 AM STITCHING MACHINE FEEDER OR OFFBEARER Office Visit [facility] [address] [place] [address] Bernadette Cabrera MD Lab; Diabetes 11/28/2024 Travel 11/20/[address] [address] Padmini Sena MD Questions (Infection ) 11/20/2024 Travel 11/19/2024 9:00 AM STITCHING MACHINE FEEDER OR OFFBEARER Phone Office Visit [address] [address] Padmini Sena MD 11/15/2024 10:30 AM STITCHING MACHINE FEEDER OR OFFBEARER Orders [place] [address] [place] [address] Lab, [facility] Lab 11/15/2024 Travel 11/06/2024 Refill [facility] [address] [place] [address] Bernadette Cabrera MD Refill Request (Meclizine) 11/02/2024 Refill [facility] [address] [place] [address] Bernadette Cabrera MD Refill Request (Duloxetine, Zolpidem) 10/30/[address] [address] Padmini Sena MD Lab (Infection) 10/28/2024 9:00 AM STITCHING MACHINE FEEDER OR OFFBEARER Ancillary Procedure [facility] [address] [place] [address] 10/28/2024 Travel 10/15/2024 10:05 AM STITCHING MACHINE FEEDER OR OFFBEARER Office Visit [facility] [address] [place] [address] Bernadette Cabrera MD Follow Up 10/15/2024 Orders Only [facility] Scanner 1 scan: (1-Ord) [facility], MULTIPLE LABS, 10/15/2024 10/15/2024 Telephone [facility] [address] [place] [address] Bernadette Cabrera MD Medication Management (Antibiotics/) 10/15/2024 Travel 10/14/[address] [address] Padmini Sena MD Lab (Orders request) 10/11/2024 Telephone [facility] [address] [place] [address] Bernadette Cabrera MD Questions (Medication ) 10/10/2024 10:00 AM STITCHING MACHINE FEEDER OR OFFBEARER Phone Office Visit [address] [address] Padmini Sena MD Follow Up; Infection (Left Knee post-op); Phone Visit 10/10/2024 Refill [facility] [address] [facility] [address] Bernadette Cabrera MD Refill Request (Furosemide) 10/10/2024 Travel 10/08/2024 Orders Only [facility] Scanner 1 scan: (1-Ord) [facility], MULTIPLE LAB RESULTS, 10/08/2024 10/07/2024 10:45 AM STITCHING MACHINE FEEDER OR OFFBEARER Office Visit [facility] [address] [place] [address] Bernadette Cabrera MD Follow Up; Medication Management [...] on file Legal Sex Female 5:31 AM STITCHING MACHINE FEEDER OR OFFBEARER Gender Identity Not on file Sexual Orientation Not on file Occupation Industry Job Start Date Job End Date DISABLED Not on file Not on file Not on file Obstetrics History Last Filed Vital Signs Vital Sign Reading Time Taken Comments Blood Pressure 106/78 12/30/2024 7:55 AM CDT Pulse 144 12/30/2024 7:55 AM CDT Temperature 36.7 C (98 F) 09/04/2024 3:13 PM STITCHING MACHINE FEEDER OR OFFBEARER Respiratory Rate 16 02/20/2023 9:36 AM CDT Oxygen Saturation 98% 12/30/2024 7:55 AM CDT Inhaled Oxygen Concentration - - Weight 79.2 kg (174 lb 11.2 oz) 12/13/2024 8:50 AM CDT Height 153.4 cm (5' 0.4) 09/02/2024 8:24 AM STITCHING MACHINE FEEDER OR OFFBEARER Body Mass Index 33.67 09/02/2024 8:24 AM STITCHING MACHINE FEEDER OR OFFBEARER Plan of Treatment Upcoming Encounters Date Type Department Care Team (Late st Contact Info) Description 01/16/2025 9:00 AM CDT Orders Only [facility] [address] [place] [address] Lab, [place] 01/21/2025 9:00 AM CDT Phone Office Visit [facility] [address] [address] Padmini Sena MD [address] [place] [address] 03/06/2025 9:00 AM CDT Office Visit [facility] [address] [place] [address] Bernadette Cabrera MD [address] [place] [address] Health Maintenance Due Date Last Done Comments Mammogram for age 45-75 02/26/2025 02/27/20 24, 11/08/2022, 06/29/2021, Additional history exists Pap test for age 21-65 06/09/2025 , 06/09/2020, 03/30/2017, Additional history exists BMI (ht and wt on same day) for age 18+ 09/02/2025 09/02/2024, 10/31/2022, 12/11/2020, Additional history exists Depression screening for age 12+ 12/02/2025 12/02/2024, 12/02/2024, 11/28/2024, Additional history exists Fecal testing sDNA-FIT ([place] guard) for age 45-75 08/20/2026 08/20/2023, 07/25/2020 [...] IN PREFERRED RESIDENTIAL SETTING WITH OR WITHOUT THE [facility] SERVICES- 08/17. Vincenzo Gonsalez, RN Note: ACT Care Management to collaborate with Home Care Data Reviewer and / or patient to monitor for home care discharge plan, adherence to plan of care and progression towards goals. Patient to transition from Home Care to [facility] Care Management program when appropriate. Medical Devices Implanted Type Area Wireless Operator Device Identifier Shelf Expiration Date Model / Serial / Lot [id number] Matrix 1cc Dbx Putty Dbm [[id number]] Implanted:Qty: 1 on 04/26/2016 by Buck Mata MD at [facility] Explanted:at [facility] (Quantity not on file) N/A: Spine Musculoskeletal Transplant 12/06/2017 [id number]# / [id number] / [id number] 154bone 30cc Mtf Crushed Canclls Pouch [[id number]] Implanted:Qty: 1 on 04/26/2016 by Buck Mata MD at [facility] Explanted:at [facility] (Quantity not on file) N/A: Spine Musculoskeletal Transplant 01/01/2019 [id number]# / [id number] / Spacer Lmbr [id number] 0deg Avsunilif - [id number] Implanted:Qty: 1 on 04/26/2016 by Buck Mata MD at [facility] N/A: Spine Horton Spine [id number]# / / Screw Lmbr Post 6.5x40mm Xia3 Va - [id number] Implanted:Qty: 1 on 04/26/2016 by Buck Mata MD at [facility] N/A: Spine Horton Spine [id number]# / / Screw Lmbr Post 6.5x45mm Xia3 Va - [id number] Implanted:Qty: 3 on 04/26/2016 by Buck Mata MD at [facility] N/A: Spine Horton Spine [id number]# / / Cnnctr Lmbr 35-44mm Marilee Iii Va - [id number] Implanted:Qty: 1 on 04/26/2016 by Buck Mata MD at [facility] N/A: Spine Horton Spine [id number]# / / Set Screw Lmbr Xia3 - [id number] Implanted:Qty: 4 on 04/26/2016 by Buck Mata MD at [facility] N/A: Spine Vivek Spine [id number]# / / Radhika Lmbr 40mmx6 Xia3 Cvd Titnm - [id number] Implanted:Qty: 1 on 04/26/2016 by Buck Mata MD at [facility] N/A: Spine Horton Spine [id number]# / / Radhika Lmbr 45mmx6 Xia3 Cvd Titnm - [id number] Implanted:Qty: 1 on 04/26/2016 by Buck Mata MD at [facility] N/A: Spine Vivek Spine [id number]# / / [id number] one Matrix 3cc Willis Dbf Putty Dbm Implanted:Qty: 1 on 06/18/2019 by Buck Mata MD at [facility] Explanted:at [facility] (Quantity not on file) N/A: Spine Medtronic Spine/Ortho 01/27/2021 [id number]# / [id number] / [id number] one 1-4mm 30cc Medtronic Chips Canclls Freeze Dried Implanted:Qty: 1 on 06/18/2019 by Buck Mata MD at [facility] Explanted:at [facility] (Quantity not on file) N/A: Spine Medtronic Spine/Ortho 10/18/2023 [id number]# / [id number] / Spacer Lmbr 27x03s5gl 0deg Avsunilif - [id number] Implanted:Qty: 1 on 06/18/2019 by Buck Mata MD at [facility] N/A: Spine Vivek Spine [id number]# / / Screw Lmbr Post 6.5x45mm Xia3 Va - [id number] Implanted:Qty: 2 on 06/18/2019 by Buck Mata MD at [facility] N/A: Spine Horton Spine [id number]# / / Radhika Lmbr 80mmx6 Xia3 Cvd Titnm - [id number] Implanted:Qty: 2 on 06/18/2019 by Buck Mata MD at [facility] N/A: Spine Vivek Spine [id number]# / / Set Screw Lmbr Xia3 - [id number] Implanted:Qty: 6 on 06/18/2019 by Buck Mata MD at [facility] N/A: Spine Vivek Spine [id number]# / / [id number] one 1-4mm 30cc Medtronic Chips Canclls Freeze Dried Implanted:Qty: 1 on 01/14/2022 by Buck Mata MD at [facility] Explanted:at [facility] (Quantity not on file) N/A: Spine Medtronic Spine/Ortho 02/25/2026 [id number] / [id number] / [id number] one Matrix 3cc Willis Dbf Putty Dbm Implanted:Qty: 1 on 01/14/2022 by Buck Mata MD at [facility] Explanted:at [facility] (Quantity not on file) N/A: Spine Medtronic Spine/Ortho 12/17/2023 [id number] / [id number] / Set Screw Lmbr Xia3 - [id number] Implanted:Qty: 8 on 01/14/2022 by Buck Mata MD at [facility] N/A: Spine Horton Spine [id number] / / Radhika Lmbr [id number] Xia3 Cvd Titnm - [id number] Implanted:Qty: 2 on 01/14/2022 by Buck Mata MD at [facility] N/A: Spine Horton Spine [id number] / / Screw Lmbr Post 6.5x50mm Xia3va - [id number] Implanted:Qty: 2 on 01/14/2022 by Buck Mata MD at [facility] N/A: Spine Vivek Spine [id number] / / Spacer Lmbr [id number] 0 Deg Avs Unilif - [id number] Implanted:Qty: 1 on 01/14/2022 by Buck Mata MD at [facility] N/A: Spine Horton Spine [id number] / / Screw Lmbr Post 8.5x50mm Ilios Va - [id number] Implanted:Qty: 1 on 02/22/2022 by Buck Mata MD at [facility] N/A: Spine Horton Spine [id number] / / Screw Lmbr Post 8.5x55mm Ilios Va - [id number] Implanted:Qty: 1 on 02/22/2022 by Buck Mata MD at [facility] N/A: Spine Vivek Spine [id number] / / Cnnctr Lmbr 53-73mm Marilee Iii Va - [id number] Implanted:Qty: 1 on 02/22/2022 by Buck Mata MD at [facility] N/A: Spine Horton Spine [id number] / / Set Screw Lmbr Xia3 - [id number] Implanted:Qty: 8 on 02/22/2022 by Buck Mata MD at [facility] N/A: Spine Horton Spine [id number] / / Explanted Type Area Wireless Operator Device Identifier Shelf Expiration Date Model / Serial / Lot Explant Explanted:Qty: 1 on 06/18/2019 at [facility] N/A: Spine Description:RADHIKA X2 CROSSLINK X1 Horton Marilee 3 Explanted:Qty: 1 on 02/22/2022 by Buck Mata MD at [facility] Description:2 screws/ 8 set screws Procedures Procedure [...] medical illness C-PEPTIDE Routine 11/28/2024 1:00 PM STITCHING MACHINE FEEDER OR OFFBEARER 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) CYCLIC CITRULLINE PEPTIDE Routine 11/28/2024 11:03 AM STITCHING MACHINE FEEDER OR OFFBEARER BASIC METABOLIC PANEL Routine 11/28/2024 11:03 AM STITCHING MACHINE FEEDER OR OFFBEARER HTN (hypertension) CBC W PLT NO DIFF Routine 11/28/2024 11: 03 AM STITCHING MACHINE FEEDER OR OFFBEARER Anemia, unspecified type HEMOGLOBIN A1C MONITORING (POCT) Routine 11/28/2024 9:37 AM STITCHING MACHINE FEEDER OR OFFBEARER 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) LIPID PANEL Routine 11/28/2024 9:36 AM STITCHING MACHINE FEEDER OR OFFBEARER Hyperlipidemia, unspecified hyperlipidemia type C-REACTIVE PROTEIN Routine 11/15/2024 10 :32 AM STITCHING MACHINE FEEDER OR OFFBEARER Infection associated with internal left knee prosthesis, initial encounter CBC WITH AUTO DIFFERENTIAL Routine 11/15/2024 10:32 AM STITCHING MACHINE FEEDER OR OFFBEARER Infection associated with internal left knee prosthesis, initial encounter COMP METABOLIC PANEL Routine 11/15/2024 10:32 AM STITCHING MACHINE FEEDER OR OFFBEARER Infection associated with internal left knee prosthesis, initial encounter ECHO TTE COMPLETE WO CONTRAST Routine 10/28/2024 9:41 AM STITCHING MACHINE FEEDER OR OFFBEARER Bilateral lower extremity edema HTN (hypertension) SCAN-LABORATORY REPORT 10/15/2024 12:00 AM STITCHING MACHINE FEEDER OR OFFBEARER SCAN-LABORATORY REPORT 10/08/2024 12:00 AM STITCHING MACHINE FEEDER OR OFFBEARER XR MAMMO MACHO BILAT SCREEN Routine 02/27/2024 2:35 PM CDT Visit for screening mammogram SDNA-FIT EXTERNAL (COLOGUARD) Routine 08/20/2023 8:14 PM STITCHING MACHINE FEEDER OR OFFBEARER Screening for colon cancer LC HIV-1/O/2, 4TH GENERATION Routine 05/11/2023 11:25 AM CDT Screening for HIV (human immunodeficiency virus) LC HCV ANTIBODY RFX TO QUANT PCR Routine 05/11/2023 11:25 AM CDT Need for hepatitis C screening test BUSINESS TECHNOLOGY TEACHER THIN PREP PAP SCREEN IMAGED Routine 06/09/2020 [...] * COVID/FLU/RSV PANEL (12/13/2024 9:36 AM CDT) [facility] COVID 19 [facility] Negative Negative 12/13/2024 4:17 PM CDT [facility] Comment:All PCR tests are sow bject to false negative result due to variability in viral load and collection technique. A negative result does not rule out a SARS-CoV-2 infection. Clinical correlation required. INFLUENZA A PCR Negative 4:17 PM CDT [facility] INFLUENZA B PCR Negative 4:17 PM CDT [facility] Respiratory Syncytial Virus Negative 12/13/2024 4:17 PM CDT [facility] Swab NASOPHARYNGEAL SWAB / Unknown Non-Blood / Unknown 12/13/2024 9:36 AM CDT 12/13/2024 9:36 AM CDT us Bernadette Cabrera MD MICROBIOLOGY Final Resu lt [facility] [address] [place] [address], * (ABNORMAL) CBC WITH AUTO DIFFERENTIAL (12/13/2024 9:36 AM CDT) [facility] WHITE BLOOD COUNT 8.6 4.5 - 11.0 thou/cu mm 12/13/2024 12:06 PM CDT [facility] RED BLOOD COUNT 4.46 4.00 - 5.20 mil/cu mm 12/13/2024 12:06 PM CDT [facility] HEMOGLOBIN 12.5 12.0 - 16.0 g/dL 12/13/2024 12:06 PM CDT [facility] HEMATOCRIT 40.2 33.0 - 51.0 % 12/13/2024 12:06 PM [facility] MCV 90 80 - 100 fL 12/13/2024 12:06 PM [facility] MCH 28.0 26.0 - 34.0 pg 12/13/2024 12:06 PM [facility] MCHC 31.1(L) 32.0 - 36.0 g/dL 12/13/2024 12:06 PM [facility] RDW 15.3 11.5 - 15.5 % 12/13/2024 12:06 PM [facility] PLATELET COUNT 307 140 - 440 thou/cu mm 12/13/2024 12:06 PM [facility] MPV 12.4(H) 6.5 - 11.0 fL 12/13/2024 12:06 PM [facility] % NEUT 68.7 % 12/13/2024 12:06 PM [facility] % LYMPH 17.8 % 12/13/2024 12:06 PM [facility] % MONO 7.6 % 12/13/2024 12:06 PM [facility] % EOS 5.6 % 12/13/2024 12:06 PM [facility] % BASO 0.3 % 12/13/2024 12:06 PM [facility] ABSOLUTE NEUTROPHILS 5.9 1.7 - 7.0 thou/cu mm 12/13/2024 12:06 PM [facility] ABSOLUTE LYMPHOCYTES 1.5 0.9 - 2.9 thou/cu mm 12/13/2024 12:06 PM [facility] ABSOLUTE MONOCYTES 0.7 <0.9 thou/cu mm 12/13/2024 12:06 PM [facility] ABSOLUTE EOSINOPHILS 0.5(H) <0.5 thou/cu mm 12/13/2024 12:06 PM [facility] ABSOLUTE BASOPHILS 0.0 <0.3 thou/cu mm 12/13/2024 12:06 PM [facility] Blood BLOOD SPECIMEN / Unknown [facility] / Unknown 12/13/2024 9:36 AM CDT 12/13/2024 9:36 AM CDT us Bernadette Cabrera MD HEMATOLOGY Final Resu lt [facility] [address] [place] [address] * (ABNORMAL) COMP METABOLIC PANEL (12/13/2024 9:36 AM CDT) Only the most recent of2 resultswithin the time period is included. SODIUM 146(H) 136 - 145 mmol/L 12/13/2024 12:17 PM [facility] POTASSIUM 4.0 3.5 - 5.1 mmol/L 12/13/2024 12:17 PM [facility] CHLORIDE 106 98 - 107 mmol/L 12/13/2024 12:17 PM [facility] CO2,TOTAL 29 22 - 29 mmol/L 12/13/2024 12:17 PM [facility] ANION GAP 11 5 - 18 12/13/2024 12:17 PM [facility] GLUCOSE 144(H) 70 - 99 mg/dL 12/13/2024 12:17 PM [facility] CALCIUM 10.0 8.8 - 10.4 mg/dL 12/13/2024 12:17 PM [facility] Comment: Reference ranges for this test were updated on 08/06/2024 to reflect our healthy population more accurately. Reference range changes are not retroactively applied to results, but previous results using the same methodology can be interpreted in the context of the new reference range. BUN 14 6 - 20 mg/dL 12/13/2024 12:17 PM [facility] CREATININE 0.92(H) 0.50 - 0.90 mg/dL 12/13/2024 12:17 PM [facility] BUN/CREAT RATIO 15 10 - 20 12:17 PM [facility] eGFR 74(L) >90 mL/min/1. 73m2 12/13/2024 12:17 PM [facility] Comment:As of 2021, eG FR is calculated by the CKD-EPI creatinine equation without race adjustment. eGFR can be influenced by muscle mass, exercise, and diet. The reported eGFR is an estimation only and is only applicable if the renal function is stable. ALBUMIN 4.0 4.0 - 4.9 g/dL 12/13/2024 12:17 PM [facility] PROTEIN,TOTAL 7.5 6.0 - 8.0 g/dL 12/13/2024 12:17 PM [facility] BILIRUBIN,TOTAL 0.2 0.0 - 1.2 mg/dL 12/13/2024 12:17 PM [facility] ALK PHOSPHATASE 151(H) 35 - 104 IU/L 12/13/2024 12:17 PM [facility] ALT (SGPT) 11 10 - 35 IU/L 12/13/2024 12:17 PM [facility] AST (SGOT) 19 10 - 35 IU/L 12/13/2024 12:17 PM [facility] Blood BLOOD SPECIMEN / Unknown [facility] / Unknown 12/13/2024 9:36 AM CDT 12/13/2024 9:36 AM CDT Bernadette Cabrera MD CHEMISTRY Final Resu lt [facility] [address] [place] [address] * (ABNORMAL) C-PEPTIDE (11/28/2024 1:00 PM STITCHING MACHINE FEEDER OR OFFBEARER) C-PEPTIDE 0.19(L) 0.80 - 3.85 ng/mL [facility] Blood BLOOD SPECIMEN / Unknown 11/28/2024 1:00 PM STITCHING MACHINE FEEDER OR OFFBEARER 11/28/2024 1:00 PM STITCHING MACHINE FEEDER OR OFFBEARER Bernadette Cabrera MD SEND OUTS Final Resu lt Performing Organization Address [facility]/ZIP Co de Phone Number [facility] [address] [id number] [place] [address], [facility] [address] [place] [address] * CYCLIC CITRULLINE PEPTIDE (11/28/2024 11:03 AM STITCHING MACHINE FEEDER OR OFFBEARER) [facility] CYCLIC CITRULLINATED PEPTIDE (CCP) AB (IGG) <16 UNITS [facility] Comment: Reference Range Negative: <20 Weak Positive: 20-39 Moderate Positive: 40-59 Strong Positive: >59 11/28/2024 11:0 3 AM STITCHING MACHINE FEEDER OR OFFBEARER 11/28/2024 11:03 AM STITCHING MACHINE FEEDER OR OFFBEARER Bernadette Cabrera MD SEND OUTS Final Resu lt Performing Organization Address [facility] Co de Phone Number [facility] [address] [address], [facility] [employer] [facility] [address] [place] [phone] * (ABNORMAL) CBC W PLT NO DIFF (11/28/2024 11:03 AM STITCHING MACHINE FEEDER OR OFFBEARER) [facility] WHITE BLOOD CELL COUNT 8.5 3.8 - [...] BLOOD SPECIMEN / Unknown 11/28/2024 11:03 AM STITCHING MACHINE FEEDER OR OFFBEARER 11/28/2024 11:03 AM STITCHING MACHINE FEEDER OR OFFBEARER us Bernadette Cabrera MD HEMATOLOGY Final Resu lt [facility] [address] [place] [address], [employer] [address] * BASIC METABOLIC PANEL (11/28/2024 11:03 AM STITCHING MACHINE FEEDER OR OFFBEARER) [facility] GLUCOSE 81 65 - 99 mg/dL [facility] [...] BLOOD SPECIMEN / Unknown 11/28/2024 11:03 AM STITCHING MACHINE FEEDER OR OFFBEARER 11/28/2024 11:03 AM STITCHING MACHINE FEEDER OR OFFBEARER Bernadette Cabrera MD CHEMISTRY Final Resu lt [facility] [address] [place] [address], [place] [phone] [facility] [facility] [address] [place] [address] * (ABNORMAL) POCT Hemoglobin A1C Monitoring (11/28/2024 9:37 AM STITCHING MACHINE FEEDER OR OFFBEARER) POC HEMOGLOBIN A1C 7.0(H) <6.0 % OF TOTAL HGB [facility] Comment: Any point of care results exhibiting inconsistency with the patient's clinical status should be repeated using a different testing method. Blood BLOOD SPECIMEN / Unknown 11/28/2024 9:37 AM STITCHING MACHINE FEEDER OR OFFBEARER 11/28/2024 9:37 AM STITCHING MACHINE FEEDER OR OFFBEARER Bernadette Cabrera MD CHEMISTRY Final Resu lt Performing Organization Address City/[facility]/ZIP Co de Phone Number [facility] [address] [place] [address], [place] [phone] [facility] [address] [place] [address] * LIPID PANEL (11/28/2024 9:36 AM STITCHING MACHINE FEEDER OR OFFBEARER) CHOLESTEROL, TOTAL 152 <200 mg/dL [facility] [...] LDL-C. Jamal TRAN et al. JOHNNY. 2013;310(19): 0564-2301 (http://education.Cambly.Cylex/faq/FOZ118) CHOL/HDLC RATIO 2.8 <5.0 (calc) [facility] NON HDL CHOLESTEROL 97 <130 mg/dL (calc) [facility] Comment: For patients with diabetes plus 1 major ASCVD risk factor, treating to a non-HDL-C goal of <100 mg/dL (LDL-C of <70 mg/dL) is considered a therapeutic option. Blood BLOOD SPECIMEN / Unknown 11/28/2024 9:36 AM STITCHING MACHINE FEEDER OR OFFBEARER 11/28/2024 9:36 AM STITCHING MACHINE FEEDER OR OFFBEARER Bernadette Cabrera MD CHEMISTRY Final Resu lt XING [address] [id number], [employer] [facility] [address] [place] [address] * (ABNORMAL) C-REACTIVE PROTEIN (11/15/2024 10:32 AM STITCHING MACHINE FEEDER OR OFFBEARER) Pathologist [facility] [place] C-REACTIVE PROTEIN 29.1(H) <8.0 mg/L [facility] [place] Blood BLOOD SPECIMEN / Unknown 11/15/2024 10:32 AM STITCHING MACHINE FEEDER OR OFFBEARER 11/15/2024 10:32 AM STITCHING MACHINE FEEDER OR OFFBEARER Padmini Sena MD CHEMISTRY Final Re sult [facility] [address] [facility] [place] [address], [place] [phone] [facility] [address] [place] [address] * (ABNORMAL) CBC AND DIFFERENTIAL (11/15/2024 10:32 AM STITCHING MACHINE FEEDER OR OFFBEARER) WHITE BLOOD CELL COUNT 7.7 3.8 - [...] BLOOD SPECIMEN / Unknown 11/15/2024 10:32 AM STITCHING MACHINE FEEDER OR OFFBEARER 11/15/2024 10:32 AM STITCHING MACHINE FEEDER OR OFFBEARER us Padmini Sena MD HEMATOLOGY Final Re sult [facility] [address] [place] [address], [facility] [address] [place] [address] * ECHO TTE COMPLETE WO CONTRAST (10/28/2024 9:41 AM STITCHING MACHINE FEEDER OR OFFBEARER) AORTIC VALVE MEAN PG 5 mmHg EJECTION FRACTION 65 % LVEDD 4.3 cm Anatomical Region Laterality Modality Ultrasound 10/28/2024 9:04 AM STITCHING MACHINE FEEDER OR OFFBEARER Narrative 10/28/2024 10:23 AM STITCHING MACHINE FEEDER OR OFFBEARER ECHOCARDIOGRAM JENNIFER GALEANO : 1970 53 years Study Date: 10/28/2024 9:04:42 AM Gender: F BP: 160/70 mmHg Height: 152.00 cm BSA: 1.81 m Weight: 85.00 kg Tech: [facility] Referring MD: BERNADETTE CABRERA Site: [facility] Reading Location: Mobile OP Patient Location: Outpatient. [...] . This study was interpreted by an [facility] accredited facility. Final Procedure Note Carolyn Dias, [facility] - 10/28/2024 ECHOCARDIOGRAM JENNIFER GALEANO : 1970 53 years Study Date: 10/28/2024 9:04:42 AM Gender: F BP: 160/70 mmHg Height: 152.00 cm BSA: 1.81 m Weight: 85.00 kg Tech: ALVIN Referring MD: BERNADETTE CABRERA Site: [facility] Reading Location: Mobile OP Patient Location: Outpatient. [...] . This study was interpreted by an [facility] accredited facility. Final us Bernadette Cabrera MD ECHO ORD Final Resu lt * SCAN-LABORATORY REPORT (10/15/2024 12:00 AM STITCHING MACHINE FEEDER OR OFFBEARER) Only the most recent of2 resultswithin the [...] care provider. XR MAMMO MACHO BILAT SCREEN [[id number]] CLINICAL HISTORY: This is an asymptomatic 53 y.o. patient. INDICATION FOR EXAM: Mammogram Screening. TECHNIQUE: CC & MLO views were obtained. This study was evaluated with the assistance of Computer-Aided Detection. Breast Tomosynthesis was used in interpretation. COMPARISON FILM: Yes 11/08/22 [facility] 06/29/21 [facility] FINDINGS: The breasts are extremely dense, which lowers the sensitivity of mammography. There are no dominant masses, suspicious micro calcifications or areas of architectural distortion. us Bernadette Cabrera MD MAMMO Final Resu lt * sDNA-FIT External (Cologuard) [[id number]] (08/20/2023 8:14 PM STITCHING MACHINE FEEDER OR OFFBEARER) NONINV COLON CA DNA+OCC BLD SCRN STL-IMP Negative Negative 08/31/2023 3:41 AM STITCHING MACHINE FEEDER OR OFFBEARER [facility] (CLIA #:[id number]) Comment: NEGATIVE TEST RESULT. A negative Cologuard [...] (Homar Griggs al, N Engl J Med 2014;370(14):3061-6121) The normal value (reference range) for this assay is negative. COLOGUARD RE-SCREENING RECOMMENDATION: Periodic colorectal cancer screening is an important part of preventive healthcare for asymptomatic individuals at average risk for colorectal cancer. Following a negative Cologuard result, the [place] Cancer Society and U.S. Multi-Society Task Force screening guidelines recommend a Cologuard re-screening interval of 3 years. References: [place] [employer] Society Guideline for Colorectal Cancer Screening: https://www.cancer.org/cancer/xozxp-dgpanc-bdpfhs/jmeiwkkzt-ylyjlqcgk-gdgqyur/ac s-rec ommendations.html.; Hood DK, Renan DAMON, Paty NunezK, Colorectal Cancer Screening: Recommendations for Physicians and Patients from the U.S. Multi-Society Task Force on Colorectal Cancer Screening , Am J Gastroenterology 2017; 112:9699-9232. TEST DESCRIPTION: Composite algorithmic analysis of stool [...] (Homar Griggs al, N Engl J Med 2014;370(14):1954-3250.) Cologuard may produce a false negative or false positive result (no colorectal cancer or precancerous polyp present at colonoscopy follow up). A negative Cologuard test result does not guarantee the absence of CRC or advanced adenoma (pre-cancer). The current Cologuard screening interval is every 3 years. ([place] [employer] Society and U.S. Multi-Society Task Force). Cologuard performance data in a 10,000 patient pivotal study using colonoscopy as the reference method can be accessed at the following location: www.[employer].Cylex/results. Additional description of the Cologuard test process, warnings and precautions can be found at www.cologExecrd.com. Stool specimen (specimen) (Rectum) 08/20/2023 8:14 PM STITCHING MACHINE FEEDER OR OFFBEARER 08/22/2023 5:49 PM STITCHING MACHINE FEEDER OR OFFBEARER Bernadette Cabrera MD URINE Final Resu lt [facility] (CLIA #:[id number]) [address] [place] [address], * LC HCV ANTIBODY RFX TO QUANT PCR (05/11/2023 11:25 AM CDT) Pathologist [facility] [place] HCV Ab Non Reactive Non Reactive 05/14/2023 8:36 AM CDT [facility] ([facility]) Blood BLOOD SPECIMEN / Unknown Venipuncture / Unknown 05/11/2023 11:25 AM CDT 05/11/2023 11:26 AM CDT Narrative [facility] ([facility]) - 05/14/2023 8:36 AM CDT Performed at: [address] [place] [id number] Rotary Driller Prospecting: Klaus Rojas MD, Phone: [phone] Bernadette Cabrera MD LABORATORY Final Resu lt Performing Organization Address City/[facility]/ZIP Co de Phone Number [facility] ([facility]) [address] [place] [address], * LC HIV-1/O/2, 4TH GENERATION (05/11/2023 11:25 AM CDT) Pathologist [facility] [place] HIV Scr 4th Gen Non Reactive Non Reactive 05/14/2023 8:36 AM CDT [facility] ([facility]) Comment: HIV Negative HIV-1/HIV-2 antibodies and HIV-1 p24 antigen were NOT detected. There is no laboratory evidence of HIV infection. Blood BLOOD SPECIMEN / Unknown Venipuncture / Unknown 05/11/2023 11:25 AM CDT 05/11/2023 11:26 AM CDT Narrative [facility] ([facility]) - 05/14/2023 8:36 AM CDT Performed at: [address] [place] [address] [id number] [employer]: Klaus Rojas MD, Phone: [phone] us Bernadette Cabrera MD LABORATORY Final Resu lt [facility] ([facility]) [address] [place] [address], * BUSINESS TECHNOLOGY TEACHER THIN PREP PAP SCREEN IMAGED (06/09/2020 9:35 AM CDT) Case Report Gynecologic Cytology Report Case: [id number] Authorizing Provider: Bernadette Cabrera MD Collected: 06/09/2020 0935 Ordering Location: [facility] Received: 06/09/2020 1124 Clinic First Screen: Nicole Mak Specimen: BUSINESS TECHNOLOGY TEACHER ThinPrep Vial Screening, Cervical 06/18/2020 8:23 AM CDT [facility] LAB[facility] INTERPRETATION/ RESULT NEGATIVE FOR INTRAEPITHELIAL LESION OR MALIGNANCY (NIL) (none) 06/18/2020 8:23 AM CDT [facility] ENTRAL LABORATORY NISM(S) 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 06/18/2020 8:23 AM CDT [facility] Communications[facility] ENTRAL LABORATORY SPECIMEN ADEQUACY Satisfactory for evaluation No endocervical component seen 06/18/2020 8:23 AM CDT [facility] ENTRAL LABORATORY HPV REQUEST HPV and PAP 06/18/2020 8:23 AM CDT [facility] ENTRAL LABORATORY Date of LMP Years ago due to ablation 06/18/2020 8:23 AM CDT [facility] ENTRAL LABORATORY Last Pap Date 03/30/17 06/18/2020 8:23 AM CDT [facility] Last Pap Result NIL 0 8:23 AM CDT [facility] Abnormal Pap or Paradise Bx in last 5 years No 06/18/2020 8:23 AM CDT [facility] Menstrual Status Postmenopausal 06/18/2020 8:23 AM CDT [facility] Paradise Bx Done Today No 06/18/2020 8:23 AM CDT [facility] Additional Information None given 06/18/2020 8:23 AM CDT [facility] Comment: Cytology is screened at [facility] - [address], [place] [address] and [facility] - [address], [place] [address] and [facility] - [address] [place] [address] [facility] - [address], [place] [address] Automated Review Successful 06/18/2020 8:23 AM CDT [facility] Comment:Specimen processed s uccessfully by automated national account representative device, ThinPrep Imaging System, [employer] ANCILLARY TESTING BUSINESS TECHNOLOGY TEACHER HPV Ordered, Please see separate report 06/18/2020 8:23 AM CDT [facility] Note The pap test is a [...] and malignant lesions. 06/18/2020 8:23 AM CDT [facility] Other (Cervical) Non-Blood / Unknown 06/09/2020 9:35 AM CDT 06/09/2020 11:24 AM CDT us Bernadette Cabrera MD PATHOLOGY/CYTOLOGY Final R esult [facility] [address] [place] [address], [place] from Last 3 Months or Most [...] 8:37 AM 04/26/2016 2:34 PM Care Teams Psychological Aide Relationship Specialty Start Date End Date Bernadette Cabrera MD [address] [place] [address] PCP - General Family Practice 10/14/13 [address] [place] [address] 01/16/22
--- OUTSIDE RECORDS SUMMARY | 2024-12-30 11:04 | XMS_ITS | Encounter Summary ---
Author Organization [facility] Address [address] [place] [address] Care Team Providers Care Psychiatric Tech Name Role Phone David Parisi MD Primary Care Provider [phone] Uriel Mercedes MD Unavailable Brandon Parikh MD Unavailable Reason for Visit * Reason Onset Date Comments Call Back 04/20/2023 Pt needs to spederek bar with someone concerning her 05/01 procedure Clinic Care Coordination - Follow-up 04/20/2023 Encounter Details Date Type Department Care Team (Late st Contact Info) Description 04/20/2023 Telephone [facility] [place] [address]th [place] [address] Uriel Mercedes MD [address] [place] [address] Call Back (Pt needs to [...] on file Legal Sex Female 5:08 AM BEEF 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 Phone Message May a detailed [...] Mercedes. Please call patient. Action Taken: Other: [phone] Travel Screening: Not Applicable documented in this encounter Plan of Treatment Upcoming Encounters Date Type Department Care Team (Late st Contact Info) Description 05/29/2025 9:40 AM CDT Ancillary Procedure [facility] [address] 1st [place] [phone] Uriel Mercedes MD [address] [place] [address] 05/29/2025 10:40 AM CDT Office Visit [facility] [address] 4th [place] [phone] Uriel Mercedes MD [address] [facility] [place] [address] documented as of this encounter Visit Diagnoses Not on filedocumented in this encounter Care Teams Psychiatric Tech Relationship Specialty Start Date End Date David Parisi MD [address] [place] [address] PCP - General 03/16/23 Uriel Mercedes MD [address] [facility] [place] [address] Assigned Musculoskeletal Provider 03/25/23 Brandon Parikh MD [address] [place] [address] Assigned Neuroscience Provider 04/29/23 11/23/24 documented as of this encounter
--- OUTSIDE RECORDS SUMMARY | 2024-12-30 11:04 | XMS_ITS | Clinical Summary ---
Author Organization [facility] Address [address] [place] [address] Care Team Providers Care Roof Technician Name Role Phone None Reported, Pcp Primary Care Provider Unavail able Source Comments Patient records contain information from all sites at [facility]. For routine questions regarding patient records, call [phone] during business hours, M-F 8:00 AM - 5:00 PM Central Time. Record requests for emergency care only can be directed to [phone] at any time.[facility] Allergies Active Allergy Reactions Criticality Noted Date [...] 10/03/2024 Assessment & Plan (10/03/2024 2:13 PM MANAGER PORTABLE): Component Ref Range & Units 3 d [...] 09/23/2024 Assessment & Plan (10/03/2024 2:11 PM MANAGER PORTABLE): Continue p.r.n. hydroxyzine- script sent Assessment & Plan (09/23/2024 1:43 PM MANAGER PORTABLE): Continue p.r.n. hydroxyzine for 30 days for anxiety Anemia 09/23/2024 Assessment & Plan (10/03/2024 2:10 PM MANAGER PORTABLE): Lab Results Component Value Date HGB 8.8 (L) 10/01/2024 Hemoglobin has improved from 7.8 to 8.8 Positive hemoccult Weekly hemoglobins Monitor for signs of active bleeding Upper endoscopy/colonoscopy recommended in future- she will discuss with PCP Celebrex was stopped Assessment & Plan (09/23/2024 1:53 PM MANAGER PORTABLE): Lab Results Component Value Date HGB 8.2 (L) 09/19/2024 Positive hemoccult Weekly hemoglobins Monitor for signs of active bleeding Upper endoscopy/colonoscopy recommended in future Discontinue Celebrex Infection Total Knee Arthroplasty Subsequent Lef t 09/16/2024 Assessment & Plan (10/03/2024 2:09 PM MANAGER PORTABLE): Continue with IV cefazolin via PICC line 2 g every 8 hours until 10/17/23- she will need follow up with infectious disease prior to stopping antibiotics Labs per Infectious Disease As needed acetaminophen As needed oxycodone for pain control- she has supply at home Assessment & Plan (09/23/2024 1:53 PM MANAGER PORTABLE): Continue with IV cefazolin via PICC line [...] transfer Assessment & Plan (09/16/2024 1:04 PM MANAGER PORTABLE): Continue with IV cefazolin via PICC line [...] 09/16/2024 Assessment & Plan (10/03/2024 2:09 PM MANAGER PORTABLE): Continue ropinirole Assessment & Plan (09/23/2024 1:42 PM MANAGER PORTABLE): Continue ropinirole Assessment & Plan (09/16/2024 1:16 PM MANAGER PORTABLE): Continue ropinirole- requesting this between 7:30 and 8 p.m. 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 02/07/2024 Lumbago With Sciatica Right Side 02/20/2022 Seizure 04/21/2021 Assessment & Plan (10/03/2024 2:08 PM MANAGER PORTABLE): Continue lacosamide and lamotrigine Assessment & Plan (09/23/2024 1:25 PM MANAGER PORTABLE): Continue lacosamide and lamotrigine Assessment & Plan (09/16/2024 12:58 PM MANAGER PORTABLE): Continue lacosamide and lamotrigine Spinal Stenosis Lumbar Regio n Without Neurogenic Claudication 04/29/2016 Other Intervertebral Disc Displacement Lumbar Re gion 10/23/2015 Assessment & Plan (09/16/2024 1:19 PM MANAGER PORTABLE): Patient states she has had multiple spine surgeries in the past Continue Lyrica Celiac Disease 08/06/2014 Overview (09/16/2024): EGD 08/2014 celiac disease Insulin Pump Status 04/01/2014 Unsteadiness Gait Disorder Non Orthopedic 2012 Assessment & Plan (10/03/2024 2:12 PM MANAGER PORTABLE): Uses walker Assessment & Plan (09/23/2024 1:43 PM MANAGER PORTABLE): Continue with PT and OT Assessment & Plan (09/16/2024 1:02 PM MANAGER PORTABLE): Continue with PT and OT Diabetes Mellitus Type 1 Wit h Diabetic Chronic Kidney Disease 11/16/2012 Overview (09/16/2024): Diagnosed at age 1 On insulin pump since 2007. Good control. Proliferative retinopathy with laser photocoagulation 1990 Cataract surgery, legally blind both eyes. No neuropathy. ++hypoglycemia unawareness, microalbuminuria. Assessment & Plan (10/03/2024 2:10 PM MANAGER PORTABLE): She is managing her own insulin via pump Assessment & Plan (09/23/2024 1:43 PM MANAGER PORTABLE): She is managing her own insulin via pump Assessment & Plan (09/16/2024 12:59 PM MANAGER PORTABLE): She is managing her own insulin via pump Insomnia 09/04/2012 Overview (09/16/2024): She takes occasional ambien. Generally gets about 30 pills and lasts her 6 months. Assessment & Plan (10/03/2024 2:11 PM MANAGER PORTABLE): PRN zolpidem, she has supply at home Assessment & Plan (09/23/2024 1:44 PM MANAGER PORTABLE): PRN zolpidem, x30 days follow up in 2 weeks Assessment & Plan (09/16/2024 1:01 PM MANAGER PORTABLE): PRN zolpidem, x14 days follow up in 2 weeks Depression Major Recurrent Partial Remission 01/2012 Assessment & Plan (10/03/2024 2:11 PM MANAGER PORTABLE): Continue duloxetine Assessment & Plan (09/16/2024 1:01 PM MANAGER PORTABLE): Not currently on medications Dyslipidemia 02/05/2010 Assessment & Plan (10/03/2024 2:10 PM MANAGER PORTABLE): Continue atorvastatin Assessment & Plan (09/16/2024 1:00 PM MANAGER PORTABLE): Continue atorvastatin Encounters Date Type Department Care Team Description 12/24/2024 Refill [facility] [place] [address] [facility] [address] Joann Gaffney APRN, C.N.P. Med Refill 11/02/2024 Refill [facility] [place] [address] [facility] [address] Joann Gaffney APRN, C.N.P. Med Refill 10/03/2024 10:30 AM MANAGER PORTABLE External Outreach [facility] [place] [address] [facility] [place] [phone] Joann Gaffney, TYRESE, C.N.P. 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 Anemia Discharge Disposition: [...] on file Legal Sex Female 4:47 PM MANAGER PORTABLE Gender Identity Not on file Sexual Orientation Not on file Last Filed Vital Signs Vital Sign Reading Time Taken Comments Blood Pressure 167/56 10/03/2024 7:42 AM MANAGER PORTABLE Pulse 90 10/03/2024 7:42 AM MANAGER PORTABLE Temperature 36.6 C (97.8 F) 10/03/2024 7:42 AM MANAGER PORTABLE Respiratory Rate 18 10/03/2024 7:42 AM MANAGER PORTABLE Oxygen Saturation 91% 10/03/2024 7:42 AM MANAGER PORTABLE Inhaled Oxygen Concentration - - Weight 91.8 kg (202 lb 6.4 oz) 10/03/2024 7:42 A M MANAGER PORTABLE Height 152.4 cm (5') 09/13/2024 9:42 AM MANAGER PORTABLE Body Mass Index 39.53 09/13/2024 9:42 AM MANAGER PORTABLE Plan of Treatment Upcoming Encounters Date Type Department Care Team (Late st Contact Info) Description 02/19/2025 10:15 AM CDT Office Visit Department of Neurology in [place], [place] [address] [place] [phone] Casa Larose M.D. [address], [place] [address] Health Maintenance Due Date Last [...] WITHOUT DIFFERENTIAL, B Routine 10/01/2024 2:55 PM MANAGER PORTABLE Anemia CREATININE WITH EGFR, S/P Routine 10/01/2024 2:55 PM MANAGER PORTABLE Anemia C-REACTIVE PROTEIN (CRP), S/P Routine 10/01/2024 2:55 PM MANAGER PORTABLE Anemia ALANINE AMINOTRANSFERASE (ALT), S/P Routine 10/01/2024 2:55 PM MANAGER PORTABLE Anemia BASIC METABOLIC PANEL, S/P Routine 09/30/2024 1:00 PM MANAGER PORTABLE Failure Heart Low Output Syndrome (HCC) HEMOGLOBIN A1C, B Routine 10/25/2019 LIPID PANEL, S Routine 07/19/2019 from Last 3 Months or Most Recently Relevant to Health Maintenance Results * (ABNORMAL) CBC without Differential (10/01/2024 2:55 PM MANAGER PORTABLE) Hemoglobin 8.8(L) 11.6 - 15.0 g/dL 10/01/2024 3:29 PM MANAGER PORTABLE NPRG Hematocrit 28.2(L) 35.5 - 44.9 % 10/01/2024 3:29 PM MANAGER PORTABLE NPRG Erythrocytes 2.98(L) 3.92 - 5.13 x10(12)/L 10/01/2024 3:29 PM MANAGER PORTABLE NPRG MCV 94.6 78.2 - 97.9 fL 10/01/2024 3:29 PM MANAGER PORTABLE NPRG RBC Distrib Width 15.8 12.2 - 16.1 % 10/01/2024 3:29 PM MANAGER PORTABLE NPRG Platelet Count 287 157 - 371 x10(9)/L 10/01/2024 3:29 PM MANAGER PORTABLE NPRG Leukocytes 7.7 3.4 - 9.6 x10(9)/L 10/01/2024 3:29 PM MANAGER PORTABLE NPRG Blood (Blood, Venous) 10/01/2024 2:55 PM MANAGER PORTABLE 10/01/2024 3:19 PM MANAGER PORTABLE us Joann Gaffney APRN, C.N.P. LAB BLOOD ADD-ON Fi nal Result [facility] [address] [place] [address], [facility] NPRG [place] [address] [place] [address] * (ABNORMAL) CRP (C-Reactive Protein) (10/01/2024 2:55 PM MANAGER PORTABLE) C-Reactive Protein (CRP), P 53.4(H) <5.0 mg/L 10/01/2024 3:33 PM MANAGER PORTABLE NPRG Blood (Blood, Venous) 10/01/2024 2:55 PM MANAGER PORTABLE 10/01/2024 3:19 PM MANAGER PORTABLE us Joann Gaffney APRN, C.N.P. LAB BLOOD ADD-ON Fi nal Result [facility] [address] [place] [address], [facility] NPRG [place] [address] [place] [address] * (ABNORMAL) ALT (Alanine Aminotransferase) (10/01/2024 2:55 PM MANAGER PORTABLE) Alanine Aminotransferase (ALT), P <5(L) 7 - 45 U/L 10/01/2024 4:28 PM MANAGER PORTABLE NPRG Blood (Blood, Venous) 10/01/2024 2:55 PM MANAGER PORTABLE 10/01/2024 3:19 PM MANAGER PORTABLE us Joann Gaffney APRN, C.N.P. LAB BLOOD ADD-ON Fi nal Result [facility] [address] [place] [address], [facility] NPRG [place] [address] [place] [address] * Creatinine with Estimated GFR (10/01/2024 2:55 PM MANAGER PORTABLE) Creatinine 0.69 0.59 - 1.04 mg/dL 10/01/2024 3:33 PM MANAGER PORTABLE NPRG Estimated GFR (eGFR) >90 >=60 mL/min/BSA 10/01/2024 3:33 PM MANAGER PORTABLE NPRG Comment: Estimated GFR calculated using the 2020 CKD_EPI creatinine equation. Blood (Blood, Venous) 10/01/2024 2:55 PM MANAGER PORTABLE 10/01/2024 3:19 PM MANAGER PORTABLE Kip Valdez APRNN.PEmmanuel LAB BLOOD ADD-ON Fi nal Result [facility] [address] [place] [address], [place] NPRG [facility] [address] [place] [address] * Hemoglobin A1c (10/25/2019) EXT Hemoglobin A1c, B 6.8 OTHER (SPECIFY IN MARKETING AUTOMATION SPECIALIST) Blood (Blood, Venous) Ordering Provider External M.D. LAB BLOOD ADD-ON Final Result Performing Organization Address [facility] Co de Phone Number OTHER (SPECIFY IN MARKETING AUTOMATION SPECIALIST) N/A * Lipid Panel (07/19/2019) EXT Cholesterol, Total, S 151 OTHER (SPECIFY IN MARKETING AUTOMATION SPECIALIST) EXT Triglycerides, S 120 OTHER (SPECIFY IN MARKETING AUTOMATION SPECIALIST) EXT Cholesterol, HDL, S 59 OTHER (SPECIFY IN MARKETING AUTOMATION SPECIALIST) Blood (Blood, Venous) Ordering Provider External M.D. LAB BLOOD ADD-ON Final Result OTHER (SPECIFY IN MARKETING AUTOMATION SPECIALIST) N/A from Last 3 Months or Most Recently Relevant to Health Maintenance Insurance MEDICARE [place] Advance Directives For more information, please contact: [phone] Documents on File Type Date Recorded Patient Light Equipment Operator Expl anation Advance Directives 09/16/2024 11:16 AM PO LST/MOLST Care Teams Roof Technician Relationship Specialty Start Date End Date None Reported, Pcp PCP - General Family Medicine 10/04/24
--- OUTSIDE RECORDS SUMMARY | 2024-12-30 11:04 | XMS_ITS | Encounter Summary ---
Author Organization [facility] Address [address] [place] [address]. [place] [address] Care Team Providers Care Credit Collector Name Role Phone David Parisi MD Primary Care Provider [phone] Uriel Mercedes MD Unavailable Brandon Parikh MD Unavailable Reason for Visit * Reason Onset Date Comments Call Back 04/21/2023 Upcoming Surgery Conversation She want to have with Doctor. Misunderstanding from Yesterday Conversation. 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 Misunderstanding from Yesterday Conversation. Please call Action Taken: Message routed to: [facility] Travel Screening: Not Applicable documented in this encounter Plan of Treatment Upcoming Encounters Date Type Department Care Team (Late st Contact Info) Description 05/29/2025 9:40 AM CDT Ancillary Procedure [facility] [address] [place] [phone] Uriel Mercedes MD [address] [place] [phone] 05/29/2025 10:40 AM CDT Office Visit [facility] [address] [place] [phone] Uriel Mercedes MD [address] [place] [phone] documented as of this encounter Visit Diagnoses Not on filedocumented in this encounter Care Teams Credit Collector Relationship Specialty Start Date End Date David Parisi MD [address] [place] [phone] PCP - General 03/16/23 Uriel Mercedes MD [address] [place] [phone] Assigned Musculoskeletal Provider 03/25/23 Brandon Parikh MD [address] [place] [address] Assigned Neuroscience Provider 04/29/23 11/23/24 documented as of this encounter
--- OUTSIDE RECORDS SUMMARY | 2024-12-30 11:04 | XMS_ITS | Encounter Summary ---
Author Organization [place] Address [address] [place] [address] Care Team Providers Care On Awake Counselor Name Role Phone David Parisi MD Primary Care Provider [phone] Uriel Mercedes MD Unavailable Brandon Parikh MD Unavailable Reason for Visit * Reason Onset Date Comments Results 04/24/2023 Lab results of lab draw Encounter Details Date Type Department Care Team (Late st Contact Info) Description 04/24/2023 Telephone [facility] Preoperative Assessment Center [address] [place] [address] Michelle Shannon APRN [address] [address] Results (Lab results of 04/19/23 [...] on file Legal Sex Female 5:08 AM MONOTYPIST Gender Identity Not on file Sexual Orientation Not on file COVID-19 Exposure Response Date Recorded In the last 10 days, have yo u been in contact with someone who was confirmed or suspected to have Coronavirus/COVID-19? No / Unsure 04/27/2023 10:44 AM CDT documented as of this encounter Miscellaneous Notes * Telephone Encounter - ShaliniNarcisa jacobsenine - 04/24/2023 1:27 PM CDT [facility] Call Center Phone Message May a detailed message be left on voicemail: yes Reason for Call: Requesting Results Name/type of test: Labs Date of test: 04/19/23 Was test done at a location other than [facility] (Please fill in the location if not [facility])?: Yes: [facility] (in care Everywhere) Action Taken: Message routed to: [facility] Travel Screening: Not Applicable documented in this encounter Plan of Treatment Upcoming Encounters Date Type Department Care Team (Late st Contact Info) Description 05/29/2025 9:40 AM CDT Ancillary Procedure [facility] Imaging [facility] [address] 1[address] [place] [phone] Uriel Mercedes MD [address] [place] [phone] 05/29/2025 10:40 AM CDT Office Visit [facility] [address] 4[address] [place] [phone] Uriel Mercedes MD [address] [place] [phone] documented as of this encounter Visit Diagnoses Not on filedocumented in this encounter Care Teams On Awake Counselor Relationship Specialty Start Date End Date David Parisi MD [address] [place] [address] PCP - General 03/16/23 Uriel Mercedes MD [address] [facility] [address] [address] Assigned Musculoskeletal Provider 03/25/23 Brandon Parikh MD [address] [place] [address] Assigned Neuroscience Provider 04/29/23 11/23/24 documented as of this encounter
[2024-12-30] MEDS: 0.9 % SODIUM CHLORIDE 500 ML 500 ML 1000 ML IV (11:30)
[2024-12-30] MEDS: PROPOFOL 10 MG/ML INJ 200 MG IVP (11:30)
== END 2024-12-30 12:39 | disposition home or self-care (01) ==
PROVIDERS: Emergency Provider Student in an Organized Health Care Education/Training Program; PCP Surgery
DX: S09.90XA Unspecified injury of head, initial encounter (principal); W00.9XXA Unspecified fall due to ice and snow, initial encounter; I48.92 Unspecified atrial flutter
CPT/HCPCS: 92960; 36415; 70450; 70486; 72125; 80048; 83880; 84484; 85025; 93005; 93246; 99156; 99285; 99291; G0390; J2704; J7030

== ENCOUNTER 2025-01-02 11:15 | Outpatient (CLI) | payer MEDICARE, MEDICAID, SELFPAY ==
[2025-01-02 11:30] LABS: Basophils Absolute Auto 0.06 K/uL (0.00-0.30); Basophils Percent Auto 0.6 % (0.0-3.0); Eosinophils Absolute Auto 0.67 K/uL (0.00-0.50); Eosinophils Percent Auto 6.9 % (0.0-7.0); Hematocrit 38.2 % (33.0-51.0); Hemoglobin* 12.3 gm/dL (12.0-16.0); Immature Granulocytes Abs Auto 0.02 K/uL (0.00-0.30); Immature Granulocytes Pct Auto 0.2 %; Lymphocytes Absolute Auto 1.98 K/uL (0.90-2.90); Lymphocytes Percent Auto 20.4 % (20-44); Mean Corpuscular HGB Conc 32 gm/dL (32-36); Mean Corpuscular Hemoglobin 28 pg (26-34); Mean Corpuscular Volume 88 fL (80-100); Monocytes Percent Auto 7.5 % (0.0-11.0); Neutrophils Absolute Auto 6.25 K/uL (1.7-7.0); Neutrophils Percent Auto 64.4 % (42.0-72.0); Platelet Count* 297 K/uL (140-440); Red Blood Count 4.33 m/uL (4.00-5.20); White Blood Count* 9.71 K/uL (4.50-11.00)
[2025-01-02 11:36] LABS: Slide Review Reflex No
[2025-01-02 11:49] LABS: C Reactive Protein* 1.8 mg/dL (0.5-1.0)
[2025-01-02 12:12] LABS: Erythrocyte SedimentationRate* 62 mm/hr (2-20)
== END 2025-01-02 11:16 | disposition home or self-care (01) ==
PROVIDERS: PCP Surgery; Visit Provider Physician Assistant Surgical
DX: R11.2 Nausea with vomiting, unspecified (principal); E10.39 Type 1 diabetes mellitus with other diabetic ophthalmic complication; Z87.39 Personal history of other diseases of the musculoskeletal system and connective tissue
CPT/HCPCS: 36415; 85025; 85651; 86140

== ENCOUNTER 2025-02-06 07:30 | Outpatient (RCR) | payer MEDICARE, MEDICAID, SELFPAY ==
--- NOTE | 2024-12-20 14:40 | PC.SOCIAL ---
Discharge planning: Social work received a referral on the pt. No social work needs were identified and the pt discharged home this afternoon. Social work to follow-up as needed.
== END 2025-05-14 12:03 | disposition home or self-care (01) ==
PROVIDERS: PCP Surgery; Visit Provider Surgery
DX: R42 Dizziness and giddiness (principal); Z51.89 Encounter for other specified aftercare
CPT/HCPCS: 97112; 97161

== ENCOUNTER 2025-04-20 20:06 | Outpatient (CLI) | payer MEDICARE, MEDICAID, SELFPAY | END 2025-04-20 20:07 | disposition home or self-care (01) | PROVIDERS: PCP Surgery; Visit Provider Internal Medicine Cardiovascular Disease | DX: G47.33 Obstructive sleep apnea (adult) (pediatric) (principal); R09.02 Hypoxemia | CPT/HCPCS: 95811 ==